=== PATIENT | female | born 1945 | race African-American/Black ===

== ENCOUNTER 2016-04-07 15:38 | Emergency (ER) | payer OTHER ==
[~2016-04-07] VITALS: Ht 154.9 cm; Wt 65.0 kg
[~2016-04-07 15:38] MED LIST: AMLO5TAB22 PO; BUME1TAB PO; ENAL20TA PO; FERR324T4 PO; ISOS30TA3 PO; K-TA10TA5 PO; METO50CR PO; PACE200T4 PO
[2016-04-07 15:43] VITALS: BP 178/89; PULSE 92; RESP 18; TEMP 98.2; O2SAT 85
[2016-04-07 16:33] LABS: BACTERIA, URINE RARE /hpf; BLOOD, URINE TRACE (NEG); COMMENT (UR) CULTURE INDICATED; CULTURE IF INDICATED CULTURE INDICATED; GLUCOSE,URINE NEG (NEG); KETONE, URINE NEG (NEG); MUCUS URINE FEW /lpf (OCC); NITRITE,URINE NEG (NEG); PH, URINE 6.5 (5.0-8.5); SQUAMOUS EPITHELIAL CELL URINE 2 /hpf (0-5); URINE COLOR YELLOW (YELLW/STRAW)
[2016-04-07 16:34] LABS: AUTOMATED NEUTROPHIL # 3.9 TH/MM3 (1.8-7.7); BASOPHIL # 0.1 TH/MM3 (0-0.2); BASOPHIL % 1.1 % (0.0-2.0); EOSINOPHIL # 0.1 TH/MM3 (0-0.4); HEMATOCRIT 31.8 % (35.0-46.0); LYMPH % 12.4 % (9.0-44.0); LYMPHOCYTE # 0.7 TH/MM3 (1.0-4.8); MEAN CELL VOLUME 73.3 FL (80.0-100.0); MEAN CORPUSCULAR HEMOGLOBIN 23.2 PG (27.0-34.0); MEAN CORPUSCULAR HGB CONC 31.6 % (32.0-36.0); MONO % 11.9 % (0.0-8.0); NEUT % 73.6 % (16.0-70.0); PLATELET COUNT 292 TH/MM3 (150-450); RED BLOOD COUNT 4.35 MIL/MM3 (4.00-5.30); RED CELL DISTRIBUTION WIDTH 22.1 % (11.6-17.2); WHITE BLOOD COUNT 5.4 TH/MM3 (4.0-11.0)
[2016-04-07 16:35] LABS: HEMO FLAGS AUTO DIFF
[2016-04-07 16:43] LABS: OVALOCYTES 1+ (NORMAL); PLATELET ESTIMATE SMEAR NORMAL (NORMAL); TEARDROP RBCS 1+ (NORMAL)
[2016-04-07 16:44] LABS: PLATELET MORPHOLOGY NORMAL (NORMAL); SCAN/DIFF AUTO DIFF CONFIRMED
[2016-04-07 16:53] LABS: ANION GAP 7 MEQ/L (5-15)
[2016-04-07 16:58] LABS: ALKALINE PHOSPHATASE 121 U/L (45-117); ALT (GPT) 16 U/L (10-53); AST (GOT) 29 U/L (15-37); BICARBONATE 34.8 MEQ/L (21.0-32.0); BLOOD UREA NITROGEN 16 MG/DL (7-18); CHLORIDE 98 MEQ/L (98-107); GLOMERULAR FILTRATION RATE 64 ML/MIN (>89); SODIUM (NA) 140 MEQ/L (136-145); TOTAL BILIRUBIN ADULT 2.2 MG/DL (0.2-1.0)
[2016-04-07 16:59] LABS: POTASSIUM 2.4 MEQ/L (3.5-5.1)
--- NOTE | 2016-04-07 16:59 | PD ---
HPI Chief Complaint: Abdominal Pain Time Seen by Provider: 16:47 Travel History International Travel<30 days: No Contact w/Intl Traveler<30days: No Traveled to known affect area: No History of Present Illness HPI 70-year-old female with previous hysterectomy, appendectomy here with complaint of abdominal pain. Patient states that she has been constipated for the last several days, still passing flatus. Because of the cold weather she went and ate some chili, after which she developed periumbilical and lower abdominal discomfort. Some nausea, but no vomiting. Pain is mild to moderate, crampy in nature. Symptoms have improved since this morning with pain, constipation for the last several days. She denies any known history of bowel obstructions. No diarrhea. No hematemesis or hematochezia. No fevers or chills. PFSH Past Medical History Hx Anticoagulant Therapy: Yes Arthritis: No Asthma: Yes Autoimmune Disease: No Blood Disorders: No Anxiety: No Depression: No Heart Rhythm Problems: No Cancer: No Cardiovascular Problems: Yes High Cholesterol: No Chemotherapy: No Chest Pain: No Congestive Heart Failure: Yes COPD: Yes Cerebrovascular Accident: No Diabetes: Yes Diminished Hearing: No Endocrine: Yes Gastrointestinal Disorders: No GERD: No Glaucoma: No Genitourinary: No Headaches: No Hepatitis: No Hiatal Hernia: No Hypertension: Yes Immune Disorder: No Kidney Stones: No Musculoskeletal: No Neurologic: No Psychiatric: No Reproductive: Yes (HX HYSTERECTOMY) Respiratory: Yes Integumentary: Yes (RIGHT BREAST LUMPECTOMY) Immunizations Current: Yes Migraines: No Myocardial Infarction: No Radiation Therapy: No Renal Failure: No Seizures: No Sickle Cell Disease: No Sleep Apnea: No Thyroid Disease: No Ulcer: No Menopausal: Yes Past Surgical History Abdominal Surgery: Yes (APPENDECTOMY) AICD: No Appendectomy: Yes Arteriovenous Shunt: No Cardiac Surgery: Yes (3 CARDIAC STENTS) Cholecystectomy: No Ear Surgery: No Endocrine Surgery: No Eye Surgery: No Genitourinary Surgery: No Gynecologic Surgery: Yes (HYSTERECTOMY) Hysterectomy: Yes Insulin Pump: No Joint Replacement: No Oral Surgery: No Pacemaker: Yes (MEDTRONIC 2013 MODEL #[id number]) Thoracic Surgery: No Other Surgery: Yes (hysterectomy,defribillator, stents,lumpectomny) Social History Alcohol Use: Yes (OCCASIONALLY) Tobacco Use: Yes (1/2 PPD) Substance Use: No Allergies-Medications (Allergen,Severity, Reaction): Coded Allergies: Penicillin (Verified Allergy, Severe, 04/07/16) Uncoded Allergies: NON COMPATIBLE PACEMAKER (Adverse Reaction, Severe, MRI PRECAUTION / PACEMAKER, 11/03/14) MRI PRECAUTION. PACEMAKER Reported Meds & Prescriptions Reported Meds & Active Scripts Active Reported Coumadin (Warfarin) 5 Mg Tab Unknown Dose PO DAILY Metoprolol Succinate ER 24 HR (Metoprolol Succinate) 50 Mg Tab 50 Mg PO DAILY Isosorbide Mononitrate 20 Mg Tab 30 Mg PO DAILY Take 2 doses 7 hours apart. K-Tab (Potassium Chloride) 10 Meq Tab 10 Meq PO BID Enalapril (Enalapril Maleate) 20 Mg Tab 20 Mg PO BID Bumetanide 2 Mg Tab 2 Mg PO HS Amlodipine (Amlodipine Besylate) 5 Mg Tab 5 Mg PO DAILY Amiodarone (Amiodarone HCl) 200 Mg Tab 200 Mg PO DAILY Review of Systems Except as stated in HPI: all other systems reviewed are Neg Physical Exam Narrative GENERAL: Elderly female in no acute distress SKIN: Warm and dry. HEAD: Normocephalic. EYES: No scleral icterus. No injection or drainage. ENT: Mucous membranes pink and moist. NECK: Supple CARDIOVASCULAR: Regular rate and rhythm. No murmur appreciated. RESPIRATORY: No accessory muscle use. Clear to auscultation. Breath sounds equal bilaterally. GASTROINTESTINAL: Abdomen soft, periumbilical and suprapubic tenderness to palpation without rebound or guarding, nondistended. Well-healed old surgical scars MUSCULOSKELETAL: Normal gait NEUROLOGICAL: Awake and alert. Normal speech. PSYCHIATRIC: Appropriate mood and affect; insight and judgment normal. Data Data Last Documented VS Vital Signs Date Time Temp Pulse Resp B/P Pulse Ox O2 Delivery O2 Flow Rate FiO2 04/07/16 18:19 98 18 140/98 95 Room Air 04/07/16 15:43 98.2 Orders Complete Blood Count With Diff (04/07/16 15:58) Comprehensive Metabolic Panel (04/07/16 15:58) Urinalysis - C+S If Indicated (04/07/16 15:58) Lipase (04/07/16 15:58) Urine Culture (04/07/16 16:10) Ct Abd/Pel W/O Iv Contrast (04/07/16 16:55) Morphine Inj (Morphine Inj) (04/07/16 17:00) Ondansetron Inj (Zofran Inj) (04/07/16 17:00) Potassium Chloride (Kcl) (04/07/16 17:15) Ondansetron Inj (Zofran Inj) (04/07/16 18:30) Labs Laboratory Tests Test 04/07/16 16:10 White Blood Count 5.4 TH/MM3 Red Blood Count 4.35 MIL/MM3 Hemoglobin 10.1 GM/DL Hematocrit 31.8 % Mean Corpuscular Volume 73.3 FL Mean Corpuscular Hemoglobin 23.2 PG Mean Corpuscular Hemoglobin 31.6 % Concent Red Cell Distribution Width 22.1 % Platelet Count 292 TH/MM3 Mean Platelet Volume 7.7 FL Neutrophils (%) (Auto) 73.6 % Lymphocytes (%) (Auto) 12.4 % Monocytes (%) (Auto) 11.9 % Eosinophils (%) (Auto) 1.0 % Basophils (%) (Auto) 1.1 % Neutrophils # (Auto) 3.9 TH/MM3 Lymphocytes # (Auto) 0.7 TH/MM3 Monocytes # (Auto) 0.6 TH/MM3 Eosinophils # (Auto) 0.1 TH/MM3 Basophils # (Auto) 0.1 TH/MM3 CBC Comment AUTO DIFF Differential Comment AUTO DIFF CONFIRMED Platelet Estimate NORMAL Platelet Morphology Comment NORMAL Tear Drop Cells 1+ Ovalocytes 1+ Urine Color YELLOW Urine Turbidity CLEAR Urine pH 6.5 Urine Specific [place] 1.011 Urine Protein 30 mg/dL Urine Glucose (UA) NEG mg/dL Urine Ketones NEG mg/dL Urine Occult Blood TRACE Urine Nitrite NEG Urine Bilirubin NEG Urine Urobilinogen 4.0 MG/DL Urine Leukocyte Esterase LARGE Urine RBC 4 /hpf Urine WBC 18 /hpf Urine Squamous Epithelial 2 /hpf Cells Urine Bacteria RARE /hpf Urine Mucus FEW /lpf Microscopic Urinalysis Comment CULTURE INDICATED Sodium Level 140 MEQ/L Potassium Level 2.4 MEQ/L Chloride Level 98 MEQ/L Carbon Dioxide Level 34.8 MEQ/L Anion Gap 7 MEQ/L Blood Urea Nitrogen 16 MG/DL Creatinine 1.04 MG/DL Estimat Glomerular Filtration 64 ML/MIN Rate Random Glucose 98 MG/DL Calcium Level 8.6 MG/DL Total Bilirubin 2.2 MG/DL Aspartate Amino Transf 29 U/L (AST/SGOT) Alanine Aminotransferase 16 U/L (ALT/SGPT) Alkaline Phosphatase 121 U/L Total Protein 9.1 GM/DL Albumin 3.4 GM/DL Lipase 93 U/L [facility] Medical Decision Making Medical Screen Exam Complete: Yes Emergency Medical Condition: Yes Medical Record Reviewed: Yes Differential Diagnosis 70-year-old female here with periumbilical and suprapubic abdominal pain after eating chili this morning. Differential includes gastritis, pancreatitis, hepatobiliary pathology, bowel obstruction, gastroenteritis, food poisoning, UTI. Previous appendectomy. Narrative Course Patient placed on monitor, IV established and blood obtained. Given 4 mg morphine, 8 mg Zofran. CBC, CMP, lipase, urinalysis obtained and notable for large leukocyte esterase, 18 white cells with rare bacteria. K 2.4. Patient replaced with 80 mEq orally. Bicarbonate slightly elevated at 34.8, baseline per patient's previous lab values. CT abdomen and pelvis showed anasarca. Cardiomegaly. Minimal ascites, hepatomegaly. Mild diffuse urinary bladder wall thickening and degenerative changes of the spine. Patient will be treated with antibiotics for UTI and discharged home. Diagnosis Primary Impression: Urinary tract infection Qualified Code: N30.00 - Acute cystitis without hematuria Additional Impressions: Abdominal pain Qualified Code: R10.30 - Lower abdominal pain Nausea and vomiting Qualified Code: R11.2 - Non-intractable vomiting with nausea, unspecified vomiting type Anasarca Ascites Qualified Code: R18.8 - Other ascites Hypokalemia Referrals: Primary Care Physician as needed Additional Instructions: Nausea medications as prescribed. Finish antibiotics as prescribed. Follow-up with primary care provider symptoms persist and return to the ER for the warning signs discussed. Med/Other Pt SpecificInfo: Prescription(s) given Scripts Nitrofurantoin Monohydrate Macrocrystals (Macrobid)100 Mg [id number] Mg PO BID 7 Days Ref 0 Prov:Tori Hadley MD 04/07/16 Ondansetron Odt (Zofran Odt)8 Mg Tab8 Mg SL Q8H PRN (NAUSEA OR VOMITING) #6 TAB Ref 0 Prov:Tori Hadley MD 04/07/16 Disposition: 01 DISCHARGE HOME Condition: Stable Tori Hadley MD Apr 07, 2016 16:59
[2016-04-07] MEDS ORDERED: ONDANSETRON HCL 4 MG/2 ML VIAL IVP ONE (17:00)
[2016-04-07] MEDS ORDERED: MORPHINE SULFATE 4 MG/ML INJ IV PUSH ONE (17:00)
[2016-04-07] MEDS ORDERED: POTASSIUM CHLORIDE 20 MEQ CONTROLLED RELEASE TAB PO ONE (17:15)
[2016-04-07] MEDS ORDERED: BUME2TAB PO (17:39)
[2016-04-07] MEDS ORDERED: NOVOLOGSS (17:39)
[2016-04-07] MEDS ORDERED: METO50TA11 PO (17:39)
[2016-04-07] MEDS ORDERED: COUM5TAB PO (17:39)
[2016-04-07] MEDS ORDERED: AMLO5TAB2 PO (17:39)
[2016-04-07] MEDS ORDERED: AMIO200T PO (17:39)
[2016-04-07] MEDS ORDERED: ENAL20TA PO (17:39)
[2016-04-07] MEDS ORDERED: ISOS20TA PO (17:39)
[2016-04-07] MEDS ORDERED: K-TA10TA PO (17:39)
[2016-04-07 18:19] VITALS: BP 140/98; PULSE 98; RESP 18; O2SAT 95
--- NOTE | 2016-04-07 18:29 | RADRPT ---
EXAM DATE/TIME: 04/07/2016 18:06 [facility] COMPARISON: No previous studies available for comparison. INDICATIONS : Abdominal pain, nausea, and constipation. ORAL CONTRAST: No oral contrast ingested. RADIATION DOSE: 8.49 CTDIvol (mGy) MEDICAL HISTORY : Hypertension. Cardiovascular disease Diabetes mellitus type 2. SURGICAL HISTORY : Appendectomy. ENCOUNTER: Initial ACUITY: 1 day PAIN SCALE: 7/10 LOCATION: Abdomen TECHNIQUE: Volumetric scanning of the abdomen and pelvis was performed. Using automated exposure control and ad justment of the mA and/or kV according to patient size, radiation dose was kept as low as reasonably achievable to obtain optimal diagnostic quality images. FINDINGS: Extensive anasarca is noted. Some ascites is noted within the abdomen. The liver is enlarged. Eval uation of the solid organs of the abdomen is limited by the lack of intravenous contrast. The heart is markedly enlarged. Extensive vascular calcifications are noted. Fibrotic scarring is noted withi n the visualized lung bases. No acute obstructive uropathy is noted. The wall of the urinary bladde r is diffusely thickened. Degenerative changes and scoliosis of the thoracolumbar spine are noted. CONCLUSION: 1. Extensive anasarca. 2. Marked cardiomegaly. 3. Minimal ascites within the abdomen. 4. Hepatomegaly. 5. No acute obstructive uropathy. 6. Mild diffuse urinary bladder wall thickening. 7. Degenerative changes and scoliosis of the thoracolumbar spine. 8. Fibrotic scarring within the posterior lung bases. Lazaro Abebe MD on April 07, 2016 at 18:20 Board Certified Radiologist. This report was verified electronically.
[2016-04-07] MEDS ORDERED: ONDANSETRON HCL 4 MG/2 ML VIAL IV PUSH ONE (18:30)
[2016-04-07] MEDS ORDERED: ZOFR8TAB4 SL (18:35)
[2016-04-07] MEDS ORDERED: MACR100C2 PO (18:35)
[2016-04-07 19:18] VITALS: BP 135/80
== END 2016-04-07 19:46 | disposition home or self-care (01) ==
LOC: NEPC 15:38
DX: N30.00 Acute cystitis without hematuria (principal); R10.30 Lower abdominal pain, unspecified; R11.2 Nausea with vomiting, unspecified; R60.1 Generalized edema; R18.8 Other ascites; E87.6 Hypokalemia; K59.00 Constipation, unspecified; E11.9 Type 2 diabetes mellitus without complications; Z79.01 Long term (current) use of anticoagulants; I10 Essential (primary) hypertension; F17.200 Nicotine dependence, unspecified, uncomplicated; Z86.79 Personal history of other diseases of the circulatory system; Z87.09 Personal history of other diseases of the respiratory system; Z95.0 Presence of cardiac pacemaker
CPT/HCPCS: 74176; 80053; 81001; 83690; 85025; 87086; 96374; 96375; 96376; 99284; J2270; J2405

== ENCOUNTER 2016-05-13 11:08 | Emergency (ER) | payer OTHER ==
[~2016-05-13] VITALS: Ht 157.5 cm; Wt 70.0 kg
[~2016-05-13 11:08] MED LIST changes: +AMIO200T PO; +AMLO5TAB2 PO; -AMLO5TAB22 PO; -BUME1TAB PO; +BUME2TAB PO; +COUM5TAB PO; -FERR324T4 PO; +ISOS20TA PO; -ISOS30TA3 PO; +K-TA10TA PO; -K-TA10TA5 PO; +MACR100C2 PO; -METO50CR PO; +METO50TA11 PO; -PACE200T4 PO; +ZOFR8TAB4 SL
[2016-05-13 11:10] VITALS: BP 163/87; PULSE 102; RESP 14; TEMP 98.4; O2SAT 88
--- NOTE | 2016-05-13 11:27 | PD ---
HPI . facial swelling x 1 day Chief Complaint: Allergic/Adverse Reaction Time Seen by Provider: 11:26 Travel History International Travel<30 days: No Contact w/Intl Traveler<30days: No Traveled to known affect area: No History of Present Illness HPI 70-year-old with past medical history of hypertension, diabetes, hyperlipidemia , tobaccoism for over 50 years here with complaints of facial swelling for 1 day. Patient says she woke up this morning and noticed that her face ( bilateral eyes and lips and tongue) was swollen. She denies eating any new foods. She denies starting any new medications. She last saw her primary care provider Dr. De La Cruz 2-3 weeks ago and states everything was going well. She has been on enalapril 2-3 years. The patient woke up this morning at 7am with facial swelling and has noted that it is already improving. She denies any shortness of breath, difficulty swallowing or eating or trouble breathing. She is accompanied by her granddaughter. PFSH Past Medical History Hx Anticoagulant Therapy: Yes Arthritis: No Asthma: Yes Autoimmune Disease: No Blood Disorders: No Anxiety: No Depression: No Heart Rhythm Problems: No Cancer: No Cardiac Catheterization: Yes Cardiovascular Problems: Yes High Cholesterol: No Chemotherapy: No Chest Pain: No Congestive Heart Failure: Yes COPD: Yes Cerebrovascular Accident: No Diabetes: Yes Diminished Hearing: No Endocrine: Yes Gastrointestinal Disorders: No GERD: No Glaucoma: No Genitourinary: No Headaches: No Hepatitis: No Hiatal Hernia: No Hypertension: Yes Immune Disorder: No Kidney Stones: No Musculoskeletal: No Neurologic: No Psychiatric: No Reproductive: Yes (HX HYSTERECTOMY) Respiratory: Yes Integumentary: Yes (RIGHT BREAST LUMPECTOMY) Immunizations Current: Yes Migraines: No Myocardial Infarction: No Radiation Therapy: No Renal Failure: No Seizures: No Sickle Cell Disease: No Sleep Apnea: No Thyroid Disease: No Ulcer: No ?: Not Menopausal: Yes Past Surgical History Abdominal Surgery: Yes (APPENDECTOMY) AICD: Yes Appendectomy: Yes Arteriovenous Shunt: No Cardiac Surgery: Yes (3 CARDIAC STENTS) Cholecystectomy: No Coronary Stent: Yes (x3) Ear Surgery: No Endocrine Surgery: No Eye Surgery: No Genitourinary Surgery: No Gynecologic Surgery: Yes (HYSTERECTOMY) Hysterectomy: Yes Insulin Pump: No Joint Replacement: No Oral Surgery: No Pacemaker: Yes (EdfolioTRONIC 2013 MODEL #[id number]) Thoracic Surgery: No Other Surgery: Yes (defribillator,lumpectomny r breast) Social History Alcohol Use: No Tobacco Use: Yes (1/2 PPD) Substance Use: No Allergies-Medications (Allergen,Severity, Reaction): Coded Allergies: Penicillin (Verified Allergy, Severe, rash, 05/13/16) HUMBLE Inhibitors (Verified Allergy, Mild, 05/13/16) HUMBLE inhibitor angioedema, swelling of the face lips and anterior tongue Uncoded Allergies: NON COMPATIBLE PACEMAKER (Adverse Reaction, Severe, MRI PRECAUTION / PACEMAKER, 11/03/14) MRI PRECAUTION. PACEMAKER Reported Meds & Prescriptions Reported Meds & Active Scripts Active Medrol Dosepak (Methylprednisolone) 4 Mg Dspk 4 Mg PO DIRECTED Per Pharmacist direction Zofran Odt (Ondansetron Odt) 8 Mg Tab 8 Mg SL Q8H PRN Reported Coumadin (Warfarin) 5 Mg Tab 5 PO DAILY Metoprolol Succinate ER 24 HR (Metoprolol Succinate) 50 Mg Tab 50 Mg PO DAILY Isosorbide Mononitrate 20 Mg Tab 30 Mg PO DAILY Take 2 doses 7 hours apart. K-Tab (Potassium Chloride) 10 Meq Tab 10 Meq PO BID Enalapril (Enalapril Maleate) 20 Mg Tab 20 Mg PO BID Bumetanide 2 Mg Tab 2 Mg PO HS Amlodipine (Amlodipine Besylate) 5 Mg Tab 5 Mg PO DAILY Amiodarone (Amiodarone HCl) 200 Mg Tab 200 Mg PO DAILY Review of Systems General / Constitutional: No: Fever Eyes: No: Visual changes HENT: No: Headaches Cardiovascular: No: Chest Pain or Discomfort Respiratory: No: Shortness of Breath Gastrointestinal: No: Abdominal Pain Genitourinary: No: Dysuria Musculoskeletal: No: Pain Skin: Positive Other (facial edema), No Rash Neurologic: No: Weakness Psychiatric: No: Depression Endocrine: No: Polydipsia Hematologic/Lymphatic: No: Easy Bruising Physical Exam Narrative GENERAL: AAO x 3, no acute distress, Well-nourished, well-developed patient. SKIN: Warm and dry. No visible rashes or bruising. + facial edema ( luis alberto orbital , angioedema) HEAD: Normocephalic and atraumatic. EYES: No scleral icterus. No injection or drainage. EOM intact, PERRLA ENT: No nasal drainage noted. Mucous membranes pink. Airway patent. tongue slightly swollen. No posterior pharyngeal edema. NECK: Supple, trachea midline. No JVD. No adeonpathy. CARDIOVASCULAR: Regular rate and rhythm without murmurs, gallops, or rubs. RESPIRATORY: Breath sounds equally diminished bilaterally. No accessory muscle use. No rhonchi or rales. GASTROINTESTINAL: Abdomen soft, non-tender, nondistended. EXTREMITIES: No cyanosis or edema. BACK: Nontender without obvious deformity. No CVA tenderness. PSYCH: AAO x 3, normal affect. Data Data Last Documented VS Vital Signs Date Time Temp Pulse Resp B/P Pulse Ox O2 Delivery O2 Flow Rate FiO2 05/13/16 12:10 98.0 87 17 150/67 98 05/13/16 11:46 Room Air Orders Methylprednisolone So Succ Inj (Solumedr (05/13/16 11:30) Diphenhydramine Inj (Benadryl Inj) (05/13/16 11:30) MDM Medical Decision Making Medical Screen Exam Complete: Yes Emergency Medical Condition: Yes Medical Record Reviewed: Yes Differential Diagnosis HUMBLE inhibitor angioedema, allergic reaction to food or hygiene product, less likely facial cellulitis Narrative Course 70-year-old with past medical history of hypertension, diabetes, hyperlipidemia , tobaccoism for over 50 years here with complaints of facial swelling for 1 day. Patient says she woke up this morning and noticed that her face ( bilateral eyes and lips and tongue) was swollen. She denies eating any new foods. She denies starting any new medications. She last saw her primary care provider Dr. De La Cruz 2-3 weeks ago and states everything was going well. She has been on enalapril 2-3 years. The patient woke up this morning with facial swelling and has noted that it is already improving. She denies any shortness of breath, difficulty swallowing or eating or trouble breathing. She is accompanied by her granddaughter. Patient seen and examined. Case discussed with Dr. Joe. Recommend Solu-Medrol and Benadryl IM. Patient o2 sat on room air 98. She is comfortable without any distress. Advise stopping HUMBLE inhibitor and following up with primary care provider for adjustment of medications as soon as possible. Discussed treatment plan with patient and her granddaughter. Patient verbalized understanding of instructions, questions were answered, and thanked me for their care. I advised them if their condition worsens, please return to the nearest emergency room for further care. Diagnosis Primary Impression: HUMBLE inhibitor-aggravated angioedema Additional Impression: Allergy to HUMBLE inhibitors Patient Instructions: Angioedema (ED), General Instructions Additional Instructions: Your enalapril likely caused your face to swell. We are discontinuing your medication. You need to stop taking it immediately. DO NOT TAKE ANYMORE ENALAPRIL. Please see Dr. De La Cruz as soon as possible to get your medicine changed. You will need to follow up with your primary care provider to get your INR checked again. Take medications as prescribed. Return to ED if your symptoms return or worsen. Med/Other Pt SpecificInfo: Prescription(s) given, Med Stopped Scripts Methylprednisolone Dosepak (Medrol Dosepak)4 Mg Dspk4 Mg PO DIRECTED #1 DSPK Ref 0 Per Pharmacist direction Prov:Jaz Gaming 05/13/16 Disposition: 01 DISCHARGE HOME Condition: Stable Jaz Gaming May 13, 2016 11:27
[2016-05-13] MEDS ORDERED: methylPREDNISolone SOD SUCC 40 MG/1 ML VIAL IM SCH (11:30)
[2016-05-13] MEDS ORDERED: diphenhydrAMINE HCL 50 MG/ML VIAL IM ONE (11:30)
[2016-05-13 11:46] VITALS: BP 154/67; PULSE 96; RESP 18; O2SAT 98
[2016-05-13] MEDS ORDERED: MEDR4PAK PO (11:48)
--- NOTE | 2016-05-13 11:59 | PD ---
Data Data Last Documented VS Vital Signs Date Time Temp Pulse Resp B/P Pulse Ox O2 Delivery O2 Flow Rate FiO2 05/13/16 11:46 96 18 154/67 98 Room Air 05/13/16 11:10 98.4 Orders Methylprednisolone So Succ Inj (Solumedr (05/13/16 11:30) Diphenhydramine Inj (Benadryl Inj) (05/13/16 11:30) MDM Supervised Visit with KAVITA: Yes Narrative Course I, Dr. Hadley, have reviewed the advance practice practioner's documentation and am in agreement, met with the patient face to face, made the diagnosis, and the medical decision making was done by me. *My assessment and Findings: 70-year-old female here with complaint of facial swelling. She woke up with this. Approximate 7 AM, symptoms have gradually improved. No shortness of breath, difficulty swallowing , significant posterior pharyngeal swelling. She states that her face, lips and the anterior part of her tongue feels swollen. She is on an HUMBLE inhibitor. Denies any new lotions, soaps, detergents, medications, etc. Differential includes HUMBLE inhibitor angioedema, allergy, anaphylaxis. Given the duration of her symptoms in fact that they have arty been improving patient was given steroids, Benadryl and will be discharged home with same. Discontinuation of her HUMBLE inhibitor. Diagnosis Primary Impression: HUMBLE inhibitor-aggravated angioedema Qualified Code: T46.4X1A - HUMBLE inhibitor-aggravated angioedema, accidental or unintentional, initial encounter Additional Impression: Allergy to HUMBLE inhibitors Patient Instructions: General Instructions, Angioedema (ED) Additional Instruction: Your enalapril likely caused your face to swell. We are discontinuing your medication. You need to stop taking it immediately. DO NOT TAKE ANYMORE ENALAPRIL. Please see Dr. De La Cruz as soon as possible to get your medicine changed. You will need to follow up with your primary care provider to get your INR checked again. Take medications as prescribed. Med/Other Pt SpecificInfo: Med Stopped Scripts Methylprednisolone Dosepak (Medrol Dosepak)4 Mg Dspk4 Mg PO DIRECTED #1 DSPK Ref 0 Per Pharmacist direction Prov:Jaz Gaming 05/13/16 Disposition: 01 DISCHARGE HOME Condition: Stable Tori Hadley MD May 13, 2016 11:58
[2016-05-13 12:10] VITALS: BP 150/67; TEMP 98
== END 2016-05-13 12:10 | disposition home or self-care (01) ==
LOC: NEPE 11:08
DX: T78.3XXA Angioneurotic edema, initial encounter (principal); T46.4X5A Adverse effect of angiotensin-converting-enzyme inhibitors, initial encounter; E78.5 Hyperlipidemia, unspecified; I10 Essential (primary) hypertension; E11.9 Type 2 diabetes mellitus without complications; F17.210 Nicotine dependence, cigarettes, uncomplicated; J45.909 Unspecified asthma, uncomplicated; I50.9 Heart failure, unspecified; J44.9 Chronic obstructive pulmonary disease, unspecified; Z79.01 Long term (current) use of anticoagulants; Y92.009 Unspecified place in unspecified non-institutional (private) residence as the place of occurrence of the external cause
CPT/HCPCS: 96372; 99283; J1200; J2920

== ENCOUNTER 2016-11-28 09:39 | Emergency (ER) | payer OTHER ==
[~2016-11-28 09:39] MED LIST changes: -MACR100C2 PO; +MEDR4PAK PO
[2016-11-28] MEDS ORDERED: IOHEXOL 350 MG/ML 10 ML VIAL (for RAD DIAG) IVCONTRAST ONE (09:40)
[2016-11-28 09:41] VITALS: BP 138/87; PULSE 112; RESP 24; TEMP 98.3; O2SAT 92
[2016-11-28 10:10] VITALS: BP 135/61; PULSE 98; RESP 16; TEMP 98.5; O2SAT 91
[2016-11-28] MEDS ORDERED: SODIUM CHLORID 0.9% 500 ML INJ 500 ML IV ONE (10:15)
[2016-11-28 10:30] LABS: AUTOMATED NEUTROPHIL # 8.2 TH/MM3 (1.8-7.7); BASOPHIL # 0.1 TH/MM3 (0-0.2); BASOPHIL % 0.7 % (0.0-2.0); EOSINOPHIL # 0.1 TH/MM3 (0-0.4); EOSINOPHIL % 0.8 % (0.0-4.0); HEMATOCRIT 31.9 % (35.0-46.0); HEMO FLAGS DIFF FINAL; LYMPH % 6.4 % (9.0-44.0); LYMPHOCYTE # 0.7 TH/MM3 (1.0-4.8); MEAN CELL VOLUME 71.2 FL (80.0-100.0); MEAN CORPUSCULAR HEMOGLOBIN 21.7 PG (27.0-34.0); MEAN CORPUSCULAR HGB CONC 30.5 % (32.0-36.0); MONO % 15.2 % (0.0-8.0); NEUT % 76.9 % (16.0-70.0); PLATELET COUNT 351 TH/MM3 (150-450); RED BLOOD COUNT 4.49 MIL/MM3 (4.00-5.30); RED CELL DISTRIBUTION WIDTH 20.6 % (11.6-17.2); WHITE BLOOD COUNT 10.6 TH/MM3 (4.0-11.0)
[2016-11-28 10:34] LABS: APTT (PATIENT) 29.7 SEC (24.3-30.1); INTERNATIONAL NORMALIZED RATIO 1.3 RATIO
[2016-11-28 10:46] LABS: ALT (GPT) 13 U/L (10-53); ANION GAP 8 MEQ/L (5-15); AST (GOT) 20 U/L (15-37); BICARBONATE 26.8 MEQ/L (21.0-32.0); BLOOD UREA NITROGEN 15 MG/DL (7-18); CHLORIDE 101 MEQ/L (98-107); GLOMERULAR FILTRATION RATE 67 ML/MIN (>89); MAGNESIUM 1.8 MG/DL (1.5-2.5); POTASSIUM 3.2 MEQ/L (3.5-5.1); SODIUM (NA) 136 MEQ/L (136-145)
[2016-11-28 10:50] LABS: ALKALINE PHOSPHATASE 122 U/L (45-117); TOTAL BILIRUBIN ADULT 2.2 MG/DL (0.2-1.0)
--- NOTE | 2016-11-28 10:54 | RADRPT ---
EXAM DATE/TIME: 11/28/2016 10:10 [facility] COMPARISON: CHEST SINGLE AP, October 11, 2015, 18:00. INDICATIONS : Left chest pain. MEDICAL HISTORY : Congestive heart failure. Chronic obstructive pulmonary disease. Asthma SURGICAL HISTORY : Coronary artery stent. Pacemaker. ENCOUNTER: Initial ACUITY: 4 - 6 days PAIN SCORE: 8/10 LOCATION: Left upper chest FINDINGS: A single AP portable erect view of the chest was obtained. The study is more Midinspiratory. The hear t size remains enlarged with globular heart configuration. There are no definite new confluent infilt rates or effusions. Streaky opacity remains in the left perihilar region. There are atherosclerotic c hanges in aorta. A left subclavian transvenous pacer remains in place. CONCLUSION: Moderate cardiomegaly again noted with no definite new pulmonary edema or infiltrate. Sergio Haro MD on November 28, 2016 at 10:51 Board Certified Radiologist. This report was verified electronically.
[2016-11-28 10:55] LABS: CREATINE KINASE 99 U/L (26-192)
--- NOTE | 2016-11-28 10:56 | PD ---
HPI Chief Complaint: Chest Pain Time Seen by Provider: 10:11 Travel History International Travel<30 days: No Contact w/Intl Traveler<30days: No Traveled to known affect area: No History of Present Illness HPI Patient is a 71-year-old female with history of hypertension, coronary artery disease, presents to the ER with complaints of left-sided breast pain and swelling. Patient reports that on Friday, she was at [employer] and as they were singing, someone accidently bumped her head into her left breast. Patient reports that she has been having increased pain and swelling to her left breast since Friday. She did follow up with her primary care doctor, Dr. De La Cruz who ordered a CT study of her chest as outpatient. Reports that pain is so severe today, she couldn't tolerate the pain so she came to the ER and did not have her outpatient studies. Patient with no fever/chills. No other complaints. PFSH Past Medical History Hx Anticoagulant Therapy: Yes Arthritis: No Asthma: Yes Autoimmune Disease: No Blood Disorders: No Anxiety: No Depression: No Heart Rhythm Problems: No Cancer: No Cardiac Catheterization: Yes Cardiovascular Problems: Yes High Cholesterol: No Chemotherapy: No Chest Pain: No Congestive Heart Failure: Yes COPD: Yes Cerebrovascular Accident: No Diabetes: Yes Patient Takes Glucophage: No Diminished Hearing: No Endocrine: Yes Gastrointestinal Disorders: No GERD: No Glaucoma: No Genitourinary: No Headaches: No Hepatitis: No Hiatal Hernia: No Hypertension: Yes Immune Disorder: No Kidney Stones: No Musculoskeletal: No Neurologic: No Psychiatric: No Reproductive: Yes (HX HYSTERECTOMY) Respiratory: Yes Integumentary: Yes (RIGHT BREAST LUMPECTOMY) Immunizations Current: Yes Migraines: No Myocardial Infarction: No Radiation Therapy: No Renal Failure: No Seizures: No Sickle Cell Disease: No Sleep Apnea: No Thyroid Disease: No Ulcer: No Tetanus Vaccination: < 5 Years Influenza Vaccination: Yes Menopausal: Yes Past Surgical History Abdominal Surgery: Yes (APPENDECTOMY) AICD: Yes Appendectomy: Yes Arteriovenous Shunt: No Cardiac Surgery: Yes (3 CARDIAC STENTS) Cholecystectomy: No Coronary Stent: Yes (x3) Ear Surgery: No Endocrine Surgery: No Eye Surgery: No Genitourinary Surgery: No Gynecologic Surgery: Yes (HYSTERECTOMY) Hysterectomy: Yes Insulin Pump: No Joint Replacement: No Oral Surgery: No Pacemaker: Yes ([employer] 2013 MODEL #[id number]) Thoracic Surgery: No Other Surgery: Yes (defribillator,lumpectomny r breast) Social History Alcohol Use: No Tobacco Use: Yes (1 PPD) Substance Use: No Allergies-Medications (Allergen,Severity, Reaction): Coded Allergies: penicillin G (Unverified Allergy, Severe, rash, 11/28/16) benazepril (Unverified Allergy, Mild, 11/28/16) HUMBLE inhibitor angioedema, swelling of the face lips and anterior tongue captopril (Unverified Allergy, Mild, 11/28/16) HUMBLE inhibitor angioedema, swelling of the face lips and anterior tongue enalaprilat (Unverified Allergy, Mild, 11/28/16) HUMBLE inhibitor angioedema, swelling of the face lips and anterior tongue fosinopril (Unverified Allergy, Mild, 11/28/16) HUMBLE inhibitor angioedema, swelling of the face lips and anterior tongue lisinopril (Unverified Allergy, Mild, 11/28/16) HUMBLE inhibitor angioedema, swelling of the face lips and anterior tongue quinapril (Unverified Allergy, Mild, 11/28/16) HUMBLE inhibitor angioedema, swelling of the face lips and anterior tongue Uncoded Allergies: NON COMPATIBLE PACEMAKER (Adverse Reaction, Severe, MRI PRECAUTION / PACEMAKER, 11/03/14) MRI PRECAUTION. PACEMAKER Reported Meds & Prescriptions Reported Meds & Active Scripts Active Tylenol-Codeine #3 (Acetaminophen-Codeine) 300-30 mg Tab 1 Tab PO Q4H PRN Clindamycin (Clindamycin HCl) 300 Mg Cap 300 Mg PO Q6H 10 Days Medrol Dosepak (Methylprednisolone) 4 Mg Dspk 4 Mg PO DIRECTED Per Pharmacist direction Zofran Odt (Ondansetron Odt) 8 Mg Tab 8 Mg SL Q8H PRN Reported Coumadin (Warfarin) 5 Mg Tab 5 PO DAILY Metoprolol Succinate ER 24 HR (Metoprolol Succinate) 50 Mg Tab 50 Mg PO DAILY Isosorbide Mononitrate 20 Mg Tab 30 Mg PO DAILY Take 2 doses 7 hours apart. K-Tab (Potassium Chloride) 10 Meq Tab 10 Meq PO BID Enalapril (Enalapril Maleate) 20 Mg Tab 20 Mg PO BID Bumetanide 2 Mg Tab 2 Mg PO HS Amlodipine (Amlodipine Besylate) 5 Mg Tab 5 Mg PO DAILY Amiodarone (Amiodarone HCl) 200 Mg Tab 200 Mg PO DAILY Review of Systems General / Constitutional: No: Fever Eyes: No: Visual changes HENT: No: Headaches Cardiovascular: Positive: Chest Pain or Discomfort, Other (left sided breast tenderness) Respiratory: No: Shortness of Breath Gastrointestinal: No: Abdominal Pain Genitourinary: No: Dysuria Musculoskeletal: No: Pain Skin: No Rash Neurologic: No: Weakness Psychiatric: No: Depression Endocrine: No: Polydipsia Hematologic/Lymphatic: No: Easy Bruising Physical Exam Narrative GENERAL: moderate distress SKIN: Focused skin assessment warm/dry. HEAD: Atraumatic. Normocephalic. EYES: Pupils equal and round. No scleral icterus. No injection or drainage. ENT: No nasal bleeding or discharge. Mucous membranes pink and moist. NECK: Trachea midline. No JVD. CARDIOVASCULAR: Mildly tachycardic. No murmur appreciated. Patient with increased swelling, tenderness and erythema to her left breast RESPIRATORY: No accessory muscle use. Clear to auscultation. Breath sounds equal bilaterally. GASTROINTESTINAL: Abdomen soft, non-tender, nondistended. Hepatic and splenic margins not palpable. MUSCULOSKELETAL: No obvious deformities. No clubbing. No cyanosis. No edema. NEUROLOGICAL: Awake and alert. No obvious cranial nerve deficits. Motor grossly within normal limits. Normal speech. PSYCHIATRIC: Appropriate mood and affect; insight and judgment normal. Data Data Last Documented VS Vital Signs Date Time Temp Pulse Resp B/P (MAP) Pulse Ox O2 Delivery O2 Flow Rate FiO2 11/28/16 10:10 98.5 98 16 135/61 (85) 91 Nasal Cannula 3.00 Orders Orders Electrocardiogram (11/28/16 09:55) B-Type Natriuretic Peptide (11/28/16 09:55) Ckmb (Isoenzyme) Profile (11/28/16 09:55) Complete Blood Count With Diff (11/28/16 09:55) Comprehensive Metabolic Panel (11/28/16 09:55) Magnesium (Mg) (11/28/16 09:55) Prothrombin Time / Inr (Pt) (11/28/16 09:55) Act Partial Throm Time (Ptt) (11/28/16 09:55) Troponin I (11/28/16 09:55) Lipase (11/28/16 09:55) Chest, Single Ap (11/28/16 09:55) Ecg Monitoring (11/28/16 09:55) Iv Access Insert/Monitor (11/28/16 09:55) Oximetry (11/28/16 09:55) Ct Thorax/ Chest W Iv Contrast (11/28/16 ) Sodium Chlorid 0.9% 500 Ml Inj (Ns 500 M (11/28/16 10:15) Lactic Acid Sepsis Protocol (11/28/16 10:43) Blood Culture (11/28/16 10:43) Iohexol 350 Inj (Omnipaque 350 Inj) (11/28/16 09:40) Vancomycin Inj (Vancomycin Inj) (11/28/16 12:30) Furosemide Inj (Lasix Inj) (11/28/16 13:15) Potassium Chloride (Kcl) (11/28/16 13:15) Labs Laboratory Tests Test 11/28/16 10:00 White Blood Count 10.6 TH/MM3 Red Blood Count 4.49 MIL/MM3 Hemoglobin 9.7 GM/DL Hematocrit 31.9 % Mean Corpuscular Volume 71.2 FL Mean Corpuscular Hemoglobin 21.7 PG Mean Corpuscular Hemoglobin Concent 30.5 % Red Cell Distribution Width 20.6 % Platelet Count 351 TH/MM3 Mean Platelet Volume 7.6 FL Neutrophils (%) (Auto) 76.9 % Lymphocytes (%) (Auto) 6.4 % Monocytes (%) (Auto) 15.2 % Eosinophils (%) (Auto) 0.8 % Basophils (%) (Auto) 0.7 % Neutrophils # (Auto) 8.2 TH/MM3 Lymphocytes # (Auto) 0.7 TH/MM3 Monocytes # (Auto) 1.6 TH/MM3 Eosinophils # (Auto) 0.1 TH/MM3 Basophils # (Auto) 0.1 TH/MM3 CBC Comment DIFF FINAL Differential Comment Prothrombin Time 14.0 SEC Prothromb Time International Ratio 1.3 RATIO Activated Partial Thromboplast Time 29.7 SEC Blood Urea Nitrogen 15 MG/DL Creatinine 0.99 MG/DL Random Glucose 99 MG/DL Total Protein 8.5 GM/DL Albumin 2.9 GM/DL Calcium Level 8.6 MG/DL Magnesium Level 1.8 MG/DL Alkaline Phosphatase 122 U/L Aspartate Amino Transf (AST/SGOT) 20 U/L Alanine Aminotransferase (ALT/SGPT) 13 U/L Total Bilirubin 2.2 MG/DL Sodium Level 136 MEQ/L Potassium Level 3.2 MEQ/L Chloride Level 101 MEQ/L Carbon Dioxide Level 26.8 MEQ/L Anion Gap 8 MEQ/L Estimat Glomerular Filtration Rate 67 ML/MIN Lactic Acid Level 1.4 mmol/L Total Creatine Kinase 99 U/L Troponin I 0.02 NG/ML B-Type Natriuretic Peptide 2352 PG/ML Lipase 76 U/L MDM Medical Decision Making Medical Screen Exam Complete: Yes Emergency Medical Condition: Yes Interpretation(s) EKG at 1005: Sinus tachycardia at 104 bpm, QT/QTC 368/428 Vital Signs Date Time Temp Pulse Resp B/P (MAP) Pulse Ox O2 Delivery O2 Flow Rate FiO2 11/28/16 10:10 98.5 98 16 135/61 (85) 91 Nasal Cannula 3.00 11/28/16 10:01 104 11/28/16 09:41 98.3 112 24 138/87 (104) 92 Room Air Differential Diagnosis Differential includes breast abscess, breast cellulitis, ACS, arrhythmia, electrolyte abnormality Narrative Course Patient is a 71-year-old female who presents to emergency room complaints of left-sided breast pain. Patient does have history of CHF, hypertension, diabetes, coronary artery disease, patient with tenderness and swelling and pain to her left breast. Patient was placed on a surveillance system monitor upon arrival to the emergency room. EKG with sinus tachycardia with no acute ST-T wave changes. Patient with most likely left breast abscess versus cellulitis. Blood cultures as well as lactic acid, labwork ordered. Will monitor patient. Dose of IV vancomycin ordered for patient Vital Signs Date Time Temp Pulse Resp B/P (MAP) Pulse Ox O2 Delivery O2 Flow Rate FiO2 11/28/16 10:10 98.5 98 16 135/61 (85) 91 Nasal Cannula 3.00 11/28/16 10:01 104 11/28/16 09:41 98.3 112 24 138/87 (104) 92 Room Air Laboratory Tests Test 11/28/16 10:00 White Blood Count 10.6 TH/MM3 (4.0-11.0) Red Blood Count 4.49 MIL/MM3 (4.00-5.30) Hemoglobin 9.7 GM/DL (11.6-15.3) Hematocrit 31.9 % (35.0-46.0) Mean Corpuscular Volume 71.2 FL (80.0-100.0) Mean Corpuscular Hemoglobin 21.7 PG (27.0-34.0) Mean Corpuscular Hemoglobin Concent 30.5 % (32.0-36.0) Red Cell Distribution Width 20.6 % (11.6-17.2) Platelet Count 351 TH/MM3 (150-450) Mean Platelet Volume 7.6 FL (7.0-11.0) Neutrophils (%) (Auto) 76.9 % (16.0-70.0) Lymphocytes (%) (Auto) 6.4 % (9.0-44.0) Monocytes (%) (Auto) 15.2 % (0.0-8.0) Eosinophils (%) (Auto) 0.8 % (0.0-4.0) Basophils (%) (Auto) 0.7 % (0.0-2.0) Neutrophils # (Auto) 8.2 TH/MM3 (1.8-7.7) Lymphocytes # (Auto) 0.7 TH/MM3 (1.0-4.8) Monocytes # (Auto) 1.6 TH/MM3 (0-0.9) Eosinophils # (Auto) 0.1 TH/MM3 (0-0.4) Basophils # (Auto) 0.1 TH/MM3 (0-0.2) CBC Comment DIFF FINAL Differential Comment Prothrombin Time 14.0 SEC (9.8-11.6) Prothromb Time International Ratio 1.3 RATIO Activated Partial Thromboplast Time 29.7 SEC (24.3-30.1) Blood Urea Nitrogen 15 MG/DL (7-18) Creatinine 0.99 MG/DL (0.50-1.00) Random Glucose 99 MG/DL (74-106) Total Protein 8.5 GM/DL (6.4-8.2) Albumin 2.9 GM/DL (3.4-5.0) Calcium Level 8.6 MG/DL (8.5-10.1) Magnesium Level 1.8 MG/DL (1.5-2.5) Alkaline Phosphatase 122 U/L (45-117) Aspartate Amino Transf (AST/SGOT) 20 U/L (15-37) Alanine Aminotransferase (ALT/SGPT) 13 U/L (10-53) Total Bilirubin 2.2 MG/DL (0.2-1.0) Sodium Level 136 MEQ/L (136-145) Potassium Level 3.2 MEQ/L (3.5-5.1) Chloride Level 101 MEQ/L (98-107) Carbon Dioxide Level 26.8 MEQ/L (21.0-32.0) Anion Gap 8 MEQ/L (5-15) Estimat Glomerular Filtration Rate 67 ML/MIN (>89) Lactic Acid Level 1.4 mmol/L (0.4-2.0) Total Creatine Kinase 99 U/L (26-192) Troponin I 0.02 NG/ML (0.02-0.05) B-Type Natriuretic Peptide 2352 PG/ML (0-100) Lipase 76 U/L (73-393) Last Impressions Chest X-Ray 11/28/16 0955 Signed Impressions: Service Date/Time: , November 28, 2016 10:10 - CONCLUSION: Moderate cardiomegaly again noted with no definite new pulmonary edema or infiltrate. Sergio Haro MD CT of chest wall with diffuse edema throughout the chest and anterior abdominal wall but most pronounced involving the left breast. no abscess observed. Patient with most likely breast cellulitis. Patient has been pancultured and started on clindamycin. Patient's chest pain is located to her left breast which is swollen and erythematous. Patient with most likely left breast abscess. Plan to treat and discharge to home with script for clinda. Patient will follow-up with her primary care doctor in 2 days, return to the emergency room and she develops worsening signs and symptoms. Patient will return to emergency room as needed. She understands need to follow-up with all cultures today. Diagnosis Primary Impression: Cellulitis of left breast Additional Impression: CHF (congestive heart failure) Patient Instructions: General Instructions, Narcotic given in the ED Additional Instructions: Please follow up with your primary care doctor in 2 days Please follow up with all cultures from today Return to ER if symptoms worsen or persist Return to ER as needed Please take all antibiotics as prescribed Med/Other Pt SpecificInfo: Prescription(s) given Scripts Acetaminophen-Codeine (Tylenol-Codeine #3) 300-30 mg Tab 1 TAB PO Q4H Y for PAIN, #10 TAB 0 Refills Prov: Aniyah Freed DO 11/28/16 Clindamycin (Clindamycin) 300 Mg Cap 300 MG PO Q6H for Infection for 10 Days, CAP 0 Refills Prov: Aniyah Freed DO 11/28/16 Disposition: 01 DISCHARGE HOME Condition: Stable Aniyah Freed DO Nov 28, 2016 10:56
[2016-11-28] MEDS ORDERED: VANCOMYCIN INJ 1,000 MG in SODIUM CHLOR 0.9% 250 ML INJ 250 ML IV ONE (11:00)
[2016-11-28] MEDS ORDERED: VANCOMYCIN 1,000 MG/NS 250 ML IV ONE ×2 (12:30)
--- NOTE | 2016-11-28 12:31 | RADRPT ---
EXAM DATE/TIME: 11/28/2016 11:41 [facility] COMPARISON: CT PULMONARY ANGIOGRAM, October 11, 2015, 20:59. INDICATIONS : Left breast pain and swelling; evaluate for abscess. IV CONTRAST: 75 cc Omnipaque 350 (iohexol) IV RADIATION DOSE: 6.7 CTDIvol (mGy) MEDICAL HISTORY : Cardiovascular disease. Chronic obstructive pulmonary disease. Hypertension. SURGICAL HISTORY : Coronary artery stent. Defibrillator.Pacemaker. ENCOUNTER: Initial ACUITY: 4 - 6 days PAIN SCALE: 6/10 LOCATION: Left upper chest TECHNIQUE: Volumetric scanning of the chest was performed. Using automated exposure control and adjustment of t he mA and/or kV according to patient size, radiation dose was kept as low as reasonably achievable to obtain optimal diagnostic quality images. DICOM format image data is available electronically for review and comparison. Follow-up recommendations for detected pulmonary nodules are based at a minimum on nodule size and pa tient risk factors according to Fleischner Society Guidelines. FINDINGS: The study is degraded by breathing motion artifact. LUNGS: Linear atelectasis within both lung bases but more pronounced on the left. No discrete infiltrate. PLEURA: A tiny left pleural effusion. No effusion on the right. MEDIASTINUM: Considerable cardiomegaly. No pericardial effusion. Pulmonary arteries are prominent. Aorta is normal in caliber with scattered calcified atherosclerotic plaque. There is a replaced right subclavian art priscilla. AXILLAE: There is a left-sided pacing device to generate significant beam hardening artifact. The left breast is enlarged with diffuse stranding of the subcutaneous fat as well as thickening of the scan. No disc rete fluid collection observed to suggest an abscess. The subcutaneous stranding extends across the m idline into the right breast as well. The right breast is less involved. The subcutaneous stranding t racks inferiorly along the intra-abdominal wall. SKELETAL: Within normal limits for patient age. MISCELLANEOUS: Hepatic steatosis. Reflux of contrast into the hepatic veins. Small volume ascites. CONCLUSION: 1. Diffuse edema throughout the chest and anterior abdominal wall but most pronounced involving the l eft breast. No abscess observed. 2. Pronounced cardiomegaly. 3. Tiny left effusion. 4. Small volume ascites. Quinn Talbot Jr., MD on November 28, 2016 at 12:25 Board Certified Radiologist. This report was verified electronically.
[2016-11-28] MEDS ORDERED: TYLETAB34 PO (12:39)
[2016-11-28] MEDS ORDERED: CLIN1CAP6 PO (12:39)
[2016-11-28] MEDS ORDERED: FUROSEMIDE 100 MG/10 ML VIAL IV PUSH ONE (13:15)
[2016-11-28] MEDS ORDERED: POTASSIUM CHLORIDE 10 MEQ CONTROLLED RELEASE TAB PO ONE (13:15)
--- NOTE | 2016-11-28 17:53 | EKG ---
Date Performed: 11/28/2016 Time Performed: 10:05:46 PTAGE: 71 years EKG: SINUS TACHYCARDIA WITH OCCASIONAL VENTRICULAR PREMATURE COMPLEXES LOW QRS VOLTAGE IN PRECOR DIAL LEADS POSSIBLE ANTERIOR MYOCARDIAL INFARCTION PROBABLE INFERIOR MYOCARDIAL INFARCTION ABNORMAL E CG Compared to prior tracing no significant change PREVIOUS TRACING : 10/11/2015 17.39 DOCTOR: Hunter Burroughs Interpretating Date/Time 11/28/2016 17:51:34
== END 2016-11-28 14:10 | disposition home or self-care (01) ==
LOC: NEPC 09:39
DX: N61.0 Mastitis without abscess (principal); I50.9 Heart failure, unspecified; I11.0 Hypertensive heart disease with heart failure; E11.9 Type 2 diabetes mellitus without complications; I25.10 Atherosclerotic heart disease of native coronary artery without angina pectoris; R00.0 Tachycardia, unspecified; J44.9 Chronic obstructive pulmonary disease, unspecified; F17.200 Nicotine dependence, unspecified, uncomplicated; Z79.899 Other long term (current) drug therapy
CPT/HCPCS: 71010; 71260; 80053; 82550; 83605; 83690; 83735; 83880; 84484; 85025; 85610; 85730; 87040; 93005; 96361; 96365; 96375; 99285; J1940; J3370; J7040; J7050; Q9967

== ENCOUNTER 2016-12-10 12:39 | Inpatient (IN) | payer OTHER, MEDICARE ==
[~2016-12-10] VITALS: Ht 152.4 cm; Wt 77.0 kg
[2016-12-10] VITALS (8 sets, daily range): BP systolic 96–113; BP diastolic 53–70; PULSE 87–112; RESP 18–20; TEMP 97.1–101.9; O2SAT 88–98
[~2016-12-10 12:39] MED LIST changes: +CLIN1CAP6 PO; +TYLETAB34 PO
[2016-12-10] MEDS ORDERED: SODIUM CHLOR 0.9% 1000 ML INJ 1,000 ML IV ONE ×2 (12:56)
[2016-12-10] MEDS ORDERED: SODIUM CHLOR 0.9% 1000 ML INJ 100 ML IV ONE (12:56)
[2016-12-10] MEDS ORDERED: IBUPROFEN 800 MG TAB PO ONE (13:00)
[2016-12-10] MEDS ORDERED: HYDROmorphone HCL PF 1 MG/ML VIAL IV ONE (13:00)
[2016-12-10] MEDS ORDERED: VANCOMYCIN INJ 1,000 MG in SODIUM CHLOR 0.9% 250 ML INJ 250 ML IV ONE (13:00)
[2016-12-10] MEDS ORDERED: ONDANSETRON HCL 4 MG/2 ML VIAL IV ONE (13:00)
--- NOTE | 2016-12-10 13:06 | PD ---
HPI Chief Complaint: Altered Mental Status Time Seen by Provider: 13:05 Travel History International Travel<30 days: No Contact w/Intl Traveler<30days: No Traveled to known affect area: No History of Present Illness HPI 71 YO F with PMH of DM, HTN, CAD, CHF, DVT on COUMADIN presents to the ED via EMS for evaluation of AMS. Per EMS report the patients daughters were visiting her this morning and stated that "she is not acting like herself. " On presentation the patient is alert, oriented x 4. She answers questions appropriately. She states that she is having pain in her left breast "for a few days." She endorses accompanying fever, chills, nausea, diminished appetite. Her PCP is Dr. De La Cruz. [facility] Past Medical History Hx Anticoagulant Therapy: Yes Arthritis: No Asthma: Yes Autoimmune Disease: No Blood Disorders: No Anxiety: No Depression: No Heart Rhythm Problems: No Cancer: No Cardiac Catheterization: Yes Cardiovascular Problems: Yes High Cholesterol: No Chemotherapy: No Chest Pain: No Congestive Heart Failure: Yes COPD: Yes Cerebrovascular Accident: No Diabetes: Yes Diminished Hearing: No Endocrine: Yes Gastrointestinal Disorders: No GERD: No Glaucoma: No Genitourinary: No Headaches: No Hepatitis: No Hiatal Hernia: No Hypertension: Yes Immune Disorder: No Kidney Stones: No Musculoskeletal: No Neurologic: No Psychiatric: No Reproductive: Yes (HX HYSTERECTOMY) Respiratory: Yes Integumentary: Yes (RIGHT BREAST LUMPECTOMY) Immunizations Current: Yes Migraines: No Myocardial Infarction: No Radiation Therapy: No Renal Failure: No Seizures: No Sickle Cell Disease: No Sleep Apnea: No Thyroid Disease: No Ulcer: No Menopausal: Yes Past Surgical History Abdominal Surgery: Yes (APPENDECTOMY) AICD: Yes Appendectomy: Yes Arteriovenous Shunt: No Cardiac Surgery: Yes (3 CARDIAC STENTS) Cholecystectomy: No Coronary Stent: Yes (x3) Ear Surgery: No Endocrine Surgery: No Eye Surgery: No Genitourinary Surgery: No Gynecologic Surgery: Yes (HYSTERECTOMY) Hysterectomy: Yes Insulin Pump: No Joint Replacement: No Oral Surgery: No Pacemaker: Yes (MEDTRONIC 2013 MODEL #[id number]) Thoracic Surgery: No Other Surgery: Yes (defribillator,lumpectomny r breast) Social History Alcohol Use: No Tobacco Use: Yes (1 PPD) Substance Use: No Allergies-Medications (Allergen,Severity, Reaction): Coded Allergies: penicillin G (Unverified Allergy, Severe, rash, 11/28/16) benazepril (Unverified Allergy, Mild, 11/28/16) HUMBLE inhibitor angioedema, swelling of the face lips and anterior tongue captopril (Unverified Allergy, Mild, 11/28/16) HUMBLE inhibitor angioedema, swelling of the face lips and anterior tongue enalaprilat (Unverified Allergy, Mild, 11/28/16) HUMBLE inhibitor angioedema, swelling of the face lips and anterior tongue fosinopril (Unverified Allergy, Mild, 11/28/16) HUMBLE inhibitor angioedema, swelling of the face lips and anterior tongue lisinopril (Unverified Allergy, Mild, 11/28/16) HUMBLE inhibitor angioedema, swelling of the face lips and anterior tongue quinapril (Unverified Allergy, Mild, 11/28/16) HUMBLE inhibitor angioedema, swelling of the face lips and anterior tongue Uncoded Allergies: NON COMPATIBLE PACEMAKER (Adverse Reaction, Severe, MRI PRECAUTION / PACEMAKER, 11/03/14) MRI PRECAUTION. PACEMAKER Reported Meds & Prescriptions Reported Meds & Active Scripts Active Tylenol-Codeine #3 (Acetaminophen-Codeine) 300-30 mg Tab 1 Tab PO Q4H PRN Clindamycin (Clindamycin HCl) 300 Mg Cap 300 Mg PO Q6H 10 Days Reported Nitrofurantoin Macrocrystal 100 Mg Cap 100 Mg PO BID Magnesium 200 Mg Tab 400 Mg PO DAILY Dawes (Hydrocodone-Acetaminophen) 5-325 mg Tab 1 Tab PO BID PRN Ferrous Sulfate 325 Mg (65 Mg Iron) Tablet 325 Mg PO BID Warfarin 4 Mg Tab 4 Mg PO DAILY Isosorbide Mononitrate ER (Isosorbide Mononitrate) 30 Mg Raheem 30 Mg PO DAILY Enalapril (Enalapril Maleate) 10 Mg Tab 10 Mg PO BID Metoprolol Succinate ER 24 HR (Metoprolol Succinate) 50 Mg Tab 50 Mg PO DAILY K-Tab (Potassium Chloride) 10 Meq Tab 10 Meq PO BID Bumetanide 2 Mg Tab 2 Mg PO HS Amlodipine (Amlodipine Besylate) 5 Mg Tab 5 Mg PO DAILY Amiodarone (Amiodarone HCl) 200 Mg Tab 200 Mg PO DAILY Review of Systems Except as stated in HPI: all other systems reviewed are Neg Physical Exam Narrative GENERAL: Well-nourished, well-developed, dry, ill-appearing black female in no acute distress. SKIN: Focused skin assessment warm/dry. Warm, ropy induration in the outer, lower quadrant of the left breast. HEAD: Normocephalic. EYES: No scleral icterus. No injection or drainage. NECK: Supple, trachea midline. No JVD or lymphadenopathy. CARDIOVASCULAR: Regular rate and rhythm without murmurs, gallops, or rubs. RESPIRATORY: Breath sounds clear and equal bilaterally. No accessory muscle use. GASTROINTESTINAL: Abdomen soft, non-tender, nondistended. Active bowel sounds. MUSCULOSKELETAL: No cyanosis, or edema. BACK: Nontender without obvious deformity. No CVA tenderness. Data Data Last Documented VS Vital Signs Date Time Temp Pulse Resp B/P (MAP) Pulse Ox O2 Delivery O2 Flow Rate FiO2 12/10/16 14:30 101.7 110 18 104/59 (74) 94 Nasal Cannula 2.00 Orders Orders Complete Blood Count With Diff (12/10/16 12:56) Comprehensive Metabolic Panel (12/10/16 12:56) Lactic Acid Sepsis Protocol (12/10/16 12:56) Urinalysis - C+S If Indicated (12/10/16 12:56) Blood Culture (12/10/16 12:56) Chest, Single Ap (12/10/16 12:56) Blood Glucose (12/10/16 12:56) Ecg Monitoring (12/10/16 12:56) Iv Access Insert/Monitor (12/10/16 12:56) Oximetry (12/10/16 12:56) Ibuprofen (Motrin) (12/10/16 13:00) Hydromorphone Pf Inj (Dilaudid Pf Inj) (12/10/16 13:00) Ondansetron Inj (Zofran Inj) (12/10/16 13:00) Sodium Chlor 0.9% 1000 Ml Inj (Ns 1000 M (12/10/16 12:56) Sodium Chlor 0.9% 1000 Ml Inj (Ns 1000 M (12/10/16 12:56) Vancomycin Inj (Vancomycin Inj) (12/10/16 13:00) Us Breast Unilateral (12/10/16 ) Urine Culture (12/10/16 13:10) Cefepime Inj (Maxipime Inj) (12/10/16 14:15) Admit Order (Ed Use Only) (12/10/16 14:39) Labs Laboratory Tests Test 12/10/16 13:05 12/10/16 13:10 White Blood Count 31.6 TH/MM3 Red Blood Count 4.65 MIL/MM3 Hemoglobin 10.2 GM/DL Hematocrit 32.5 % Mean Corpuscular Volume 69.9 FL Mean Corpuscular Hemoglobin 21.9 PG Mean Corpuscular Hemoglobin Concent 31.4 % Red Cell Distribution Width 23.1 % Platelet Count 417 TH/MM3 Mean Platelet Volume 7.6 FL Neutrophils (%) (Auto) 91.3 % Lymphocytes (%) (Auto) 1.9 % Monocytes (%) (Auto) 6.5 % Eosinophils (%) (Auto) 0.1 % Basophils (%) (Auto) 0.2 % Neutrophils # (Auto) 28.8 TH/MM3 Lymphocytes # (Auto) 0.6 TH/MM3 Monocytes # (Auto) 2.0 TH/MM3 Eosinophils # (Auto) 0.0 TH/MM3 Basophils # (Auto) 0.1 TH/MM3 CBC Comment AUTO DIFF Differential Total Cells Counted 100 Neutrophils % (Manual) 85 % Band Neutrophils % 5 % Lymphocytes % 4 % Monocytes % 6 % Neutrophils # (Manual) 28.4 TH/MM3 Differential Comment FINAL DIFF MANUAL Platelet Estimate HIGH Platelet Morphology Comment ENLARGED Target Cells 1+ Ovalocytes 1+ Blood Urea Nitrogen 13 MG/DL Creatinine 1.49 MG/DL Random Glucose 59 MG/DL Total Protein 8.6 GM/DL Albumin 2.7 GM/DL Calcium Level 8.5 MG/DL Alkaline Phosphatase 113 U/L Aspartate Amino Transf (AST/SGOT) 43 U/L Alanine Aminotransferase (ALT/SGPT) 13 U/L Total Bilirubin 4.1 MG/DL Sodium Level 135 MEQ/L Potassium Level 3.3 MEQ/L Chloride Level 96 MEQ/L Carbon Dioxide Level 27.2 MEQ/L Anion Gap 12 MEQ/L Estimat Glomerular Filtration Rate 42 ML/MIN Lactic Acid Level 3.5 mmol/L Urine Color ORANGE Urine Turbidity HAZY Urine pH 6.0 Urine Specific [place] 1.015 Urine Protein 300 mg/dL Urine Glucose (UA) NEG mg/dL Urine Ketones NEG mg/dL Urine Occult Blood TRACE Urine Nitrite NEG Urine Bilirubin MOD Urine Urobilinogen 4.0 MG/DL Urine Leukocyte Esterase TRACE Urine RBC 3 /hpf Urine WBC 9 /hpf Urine Squamous Epithelial Cells 1 /hpf Urine Amorphous Sediment RARE Urine Bacteria RARE /hpf Urine Hyaline Casts 2 /lpf Microscopic Urinalysis Comment CATH-CULTURE IND MDM Medical Decision Making Medical Screen Exam Complete: Yes Emergency Medical Condition: Yes Differential Diagnosis sepsis versus breast abscess versus infection of pacemaker versus other Narrative Course 71 YO F with PMH of DM, HTN, CAD, CHF, DVT on COUMADIN presents to the ED via EMS for evaluation of AMS. Per EMS report the patients daughters were visiting her this morning and stated that "she is not acting like herself. " On presentation the patient is alert, oriented x 4. She answers questions appropriately. She states that she is having pain in her left breast "for a few days." She endorses accompanying fever, chills, nausea, diminished appetite. Her PCP is Dr. De La Cruz. Patient is febrile 101.9, tachycardic 112, respiratory rate between 18 and 26 breaths per minute, 88% O2 sat on room air, improved to 94% on 2 L by nasal cannula on presentation. Physical exam reveals a dry and ill-appearing black female in no acute distress. There is the induration in the outer, lower quadrant of the left breast with the physical exam is otherwise unremarkable. Review of the record reveals that the patient was seen on 11/28 and treated outpatient for breast cellulitis. She endorses compliance with the clindamycin with no improvement of symptoms. She states that she also saw Dr. daniel who ordered a CT of the chest but she states that she has been too ill to have that completed. IV was established. Blood cultures were obtained. Patient was administered 2 L normal saline, 4 mg Zofran, 0.5 mg Dilaudid, 800 mg ibuprofen, IV vancomycin and cefepime. CBC: WBC 31.6 with left shift. Hemoglobin 10.2. Lactic acid: 3.5. CMP: BUN 13, creatinine 1.49. Potassium 3.3. UA: Hazy, trace leukocyte esterase, rare bacteria. Culture pending. US left breast: Ill-defined hypoechoic area below the nipple with surrounding edema. The finding is nonspecific and could represent hemorrhage, fluid or infection. CXR: Mild pulmonary vascular congestion. Marked cardiomegaly. The patient meets severe sepsis criteria. I spoke with Dr. Anthony who agrees to accept the patient to the medicine service. Please see medicine notes for disposition. Sepsis Criteria SIRS Criteria (2 or more): Temp > 100.9 or < 96.8, Heart rate over 90, RR > 20 or PaCO2 < 32, WBC > 46534, < 4000 or > 10% bands Sepsis Criteria (SIRS+source): Infect source susp/known Severe Sepsis (+one): Lactate >2 Criteria Outcome: Meets severe sepsis criteria Gayle West Dec 10, 2016 13:05
[2016-12-10 13:33] LABS: AUTOMATED NEUTROPHIL # 28.8 TH/MM3 (1.8-7.7); BASOPHIL # 0.1 TH/MM3 (0-0.2); BASOPHIL % 0.2 % (0.0-2.0); EOSINOPHIL % 0.1 % (0.0-4.0); HEMATOCRIT 32.5 % (35.0-46.0); LYMPH % 1.9 % (9.0-44.0); LYMPHOCYTE # 0.6 TH/MM3 (1.0-4.8); MEAN CELL VOLUME 69.9 FL (80.0-100.0); MEAN CORPUSCULAR HEMOGLOBIN 21.9 PG (27.0-34.0); MEAN CORPUSCULAR HGB CONC 31.4 % (32.0-36.0); MONO % 6.5 % (0.0-8.0); NEUT % 91.3 % (16.0-70.0); PLATELET COUNT 417 TH/MM3 (150-450); RED BLOOD COUNT 4.65 MIL/MM3 (4.00-5.30); RED CELL DISTRIBUTION WIDTH 23.1 % (11.6-17.2); WHITE BLOOD COUNT 31.6 TH/MM3 (4.0-11.0)
[2016-12-10 13:38] LABS: ALKALINE PHOSPHATASE 113 U/L (45-117); ALT (GPT) 13 U/L (10-53); ANION GAP 12 MEQ/L (5-15); AST (GOT) 43 U/L (15-37); BICARBONATE 27.2 MEQ/L (21.0-32.0); BLOOD UREA NITROGEN 13 MG/DL (7-18); CHLORIDE 96 MEQ/L (98-107); GLOMERULAR FILTRATION RATE 42 ML/MIN (>89); POTASSIUM 3.3 MEQ/L (3.5-5.1); SODIUM (NA) 135 MEQ/L (136-145); TOTAL BILIRUBIN ADULT 4.1 MG/DL (0.2-1.0)
[2016-12-10 13:47] LABS: BACTERIA, URINE RARE /hpf; BLOOD, URINE TRACE (NEG); COMMENT (UR) CATH-CULTURE IND; CULTURE IF INDICATED CATH CULTURE IND; GLUCOSE,URINE NEG (NEG); HYALINE CAST, URINE 2 /lpf (RARE); KETONE, URINE NEG (NEG); NITRITE,URINE NEG (NEG); SQUAMOUS EPITHELIAL CELL URINE 1 /hpf (0-5)
[2016-12-10] MEDS ORDERED: NITR1CAP36 PO (13:47)
[2016-12-10] MEDS ORDERED: MAGN200T PO (13:47)
[2016-12-10] MEDS ORDERED: NORC5TAB PO (13:47)
[2016-12-10] MEDS ORDERED: FERR325T8 PO (13:47)
[2016-12-10] MEDS ORDERED: WARF-20 PO (13:47)
[2016-12-10] MEDS ORDERED: ENAL10TA PO (13:47)
[2016-12-10] MEDS ORDERED: ISOS30TA3 PO (13:47)
[2016-12-10 13:51] LABS: HEMO FLAGS AUTO DIFF
[2016-12-10 13:52] LABS: URINE COLOR ORANGE (YELLW/STRAW)
[2016-12-10 14:10] LABS: BANDS 5 % (0-6); NEUTROPHIL # MANUAL DIFF 28.4 TH/MM3 (1.8-7.7); OVALOCYTES 1+ (NORMAL); POLYS (SEG NEUTROPHILS) 85 % (16-70); TARGET CELLS 1+ (NORMAL); WBC DIFF SAMPLE 100
[2016-12-10 14:11] LABS: PLATELET ESTIMATE SMEAR HIGH (NORMAL); PLATELET MORPHOLOGY ENLARGED (NORMAL); SCAN/DIFF FINAL DIFF MANUAL
[2016-12-10] MEDS ORDERED: CEFEPIME INJ 2,000 MG in SODIUM CHLORIDE 0.9% INJ 100 ML IV ONE (14:15)
--- NOTE | 2016-12-10 14:19 | RADRPT ---
EXAM DATE/TIME: 12/10/2016 13:18 [facility] COMPARISON: CHEST SINGLE AP, November 28, 2016, 10:10. INDICATIONS : Fever and heavy breathing. MEDICAL HISTORY : Cardiovascular disease. Chronic obstructive pulmonary disease. Hypertension SURGICAL HISTORY : Coronary artery stent. Defibrillator.Pacemaker. ENCOUNTER: Initial ACUITY: 3 days PAIN SCORE: 0/10 LOCATION: Bilateral chest FINDINGS: The heart narayan enlarged. Left subclavian pacer leads are noted within the right ventricle. Mild p ulmonary vascular congestion is noted. No focal alveolar consolidation is noted. CONCLUSION: 1. Mild pulmonary vascular congestion. 2. Marked cardiomegaly. Lazaro Abebe MD on December 10, 2016 at 13:56 Board Certified Radiologist. This report was verified electronically.
--- NOTE | 2016-12-10 14:22 | RADRPT ---
EXAM DATE/TIME: 12/10/2016 13:43 [facility] COMPARISON: No previous studies available for comparison. INDICATIONS : Pain and swelling, left breast. MEDICAL HISTORY : Chronic obstructive pulmonary disease. Congestive heart failure. Diabetes. SURGICAL HISTORY : Hysterectomy. Appendectomy. Coronary stents. Pacemaker. Cardiac catheterization. Lumpectomy, right breast. ENCOUNTER: Initial ACUITY: 1 day PAIN SCORE: 0/10 LOCATION: Left breast. FINDINGS: A targeted left breast ultrasound study was performed and demonstrated ill-defined hypoechoic region below the nipple measuring up to 3.5 x 3.9 x 3.7 cm. Edema was noted to extend outward from this evelyn on into the adjacent soft tissues. CONCLUSION: Ill-defined hypoechoic area below the nipple with surrounding edema. The finding is n onspecific and could represent hemorrhage, fluid or infection. Sergio Haro MD on December 10, 2016 at 14:11 Board Certified Radiologist. This report was verified electronically.
[2016-12-10] MEDS ORDERED: LACTULOSE SYRUP 20 GM/30 ML CUP PO PRN (14:45)
[2016-12-10] MEDS ORDERED: BISACODYL 10 MG SUPP RECTAL PRN (14:45)
[2016-12-10] MEDS ORDERED: ONDANSETRON HCL 4 MG/2 ML VIAL IVP PRN (14:45)
[2016-12-10] MEDS ORDERED: NALOXONE HCL 0.4 MG/ML AMP IV PRN (14:45)
[2016-12-10] MEDS ORDERED: MAGNESIUM HYDROXIDE SUSP 30 ML CUP PO PRN (14:45)
[2016-12-10] MEDS ORDERED: SODIUM CHLORIDE 0.9% FLUSH 10 ML FLUSH IV FLUSH PRN (14:45)
[2016-12-10] MEDS ORDERED: SENNOSIDES 8.6 MG TAB PO PRN (14:45)
--- NOTE | 2016-12-10 15:00 | HHI.HP ---
[facility]ician Emily De La Cruz MD Admission Diagnosis severe sepsis, left breast cellulitis vs abscess Diagnoses: Chief Complaint: Altered mental status. Travel History International Travel<30 Days: No Contact w/Intl Traveler <30 Da: No Traveled to Known Affected Are: No Sepsis Criteria SIRS Criteria (2 or more): Temp > 100.9 or < 96.8, Heart rate over 90, RR > 20 or PaCO2 < 32, WBC > 91193, < 4000 or > 10% bands Sepsis Criteria (SIRS+source): Infect source susp/known Severe Sepsis (+one): Lactate >2, Acute Oliguria/Renal Failure Criteria Outcome: Meets SIRS criteria, Meets sepsis criteria, Meets severe sepsis criteria History of Present Illness Ms. Dailey is a 71 year old female with a history of DM, HTN, CAD, CHF, DVT currently on warfarin who was brought to the emergency department due to altered mental status noted by her daughters. Since yesterday 12/09/2016 patient 's daughters noted that patient is not herself. She was getting irritated easily with other people. She just did not look right. She did not what day of the week it was. On 11/28/2016, patient came to the emergency department with left-sided breast pain and swelling. At that visit patient reported that somebody accidentally bumped her head into her left breast. Patient was discharged from emergency department with clindamycin and Tylenol No. 3. Patient's daughter does not know if patient was actually taking antibiotics are not. Per daughter, patient did not complain of any chest pain, shortness of breath, cough. No changes in bowel or bladder habits. On arrival to the emergency department today patient's temperature 101.9, pulse 112, respiration 18-26, blood pressure 113/70, pulse oximetry 88% on room air. WBC 31.6, hemoglobin 10.2, platelet 417, neutrophil 91.3%. Sodium 135, potassium 3.3, BUN 13, creatinine 1.49, GFR 42, random glucose 59, lactic acid 3.5. Total bilirubin 4.1. Left breast ultrasound shows ill-defined hypoechoic area below the nipple with surrounding edema. Chest x-ray showed mild pulmonary vascular congestion. Gallbladder ultrasound showed possible cirrhosis but otherwise unremarkable. Review of Systems Except as stated in HPI: all other systems reviewed are Neg Past Family Social History Past Medical History Diabetes mellitus Hypertension Congestive heart failure Coronary artery disease status post cardiac stents placed Past Surgical History Right breast lumpectomy Hysterectomy Appendectomy Reported Medications Tylenol-Codeine #3 (Acetaminophen-Codeine) 300-30 mg Tab 1 Tab PO Q4H PRN Clindamycin (Clindamycin HCl) 300 Mg Cap 300 Mg PO Q6H 10 Days Reported Nitrofurantoin Macrocrystal 100 Mg Cap 100 Mg PO BID Magnesium 200 Mg Tab 400 Mg PO DAILY [place] (Hydrocodone-Acetaminophen) 5-325 mg Tab 1 Tab PO BID PRN Ferrous Sulfate 325 Mg (65 Mg Iron) Tablet 325 Mg PO BID Warfarin 4 Mg Tab 4 Mg PO DAILY Isosorbide Mononitrate ER (Isosorbide Mononitrate) 30 Mg Raheem 30 Mg PO DAILY Enalapril (Enalapril Maleate) 10 Mg Tab 10 Mg PO BID Metoprolol Succinate ER 24 HR (Metoprolol Succinate) 50 Mg Tab 50 Mg PO DAILY K-Tab (Potassium Chloride) 10 Meq Tab 10 Meq PO BID Bumetanide 2 Mg Tab 2 Mg PO HS Amlodipine (Amlodipine Besylate) 5 Mg Tab 5 Mg PO DAILY Amiodarone (Amiodarone HCl) 200 Mg Tab 200 Mg PO DAILY Allergies: Coded Allergies: penicillin G (Unverified Allergy, Severe, rash, 11/28/16) benazepril (Unverified Allergy, Mild, 11/28/16) HUMBLE inhibitor angioedema, swelling of the face lips and anterior tongue captopril (Unverified Allergy, Mild, 11/28/16) HUMBLE inhibitor angioedema, swelling of the face lips and anterior tongue enalaprilat (Unverified Allergy, Mild, 11/28/16) HUMBLE inhibitor angioedema, swelling of the face lips and anterior tongue fosinopril (Unverified Allergy, Mild, 11/28/16) HUMBLE inhibitor angioedema, swelling of the face lips and anterior tongue lisinopril (Unverified Allergy, Mild, 11/28/16) HUMBLE inhibitor angioedema, swelling of the face lips and anterior tongue quinapril (Unverified Allergy, Mild, 11/28/16) HUMBLE inhibitor angioedema, swelling of the face lips and anterior tongue Uncoded Allergies: NON COMPATIBLE PACEMAKER (Adverse Reaction, Severe, MRI PRECAUTION / PACEMAKER, 11/03/14) MRI PRECAUTION. PACEMAKER Family History Mother - heart disease Father - diabetes mellitus. Social History Smokes 1 pack per day. Drinks alcohol socially. Denies using illicit drugs. Lives with her . Physical Exam Vital Signs Vital Signs Date Time Temp Pulse Resp B/P (MAP) Pulse Ox O2 Delivery O2 Flow Rate FiO2 12/10/16 14:30 101.7 110 18 104/59 (74) 94 Nasal Cannula 2.00 12/10/16 13:05 94 Nasal Cannula 2.00 12/10/16 13:03 116 26 91 Nasal Cannula 2.00 12/10/16 13:00 101.9 112 18 113/70 (84) 88 Physical Exam GENERAL: Patient is sleepy does not wake up on verbal commands likely due to pain medication she received earlier. SKIN: No rashes, ecchymoses or lesions. Warm and dry. Left breast above the nipple has large induration. Also induration noted below nipple as well. There is no redness or drainage. HEAD: Atraumatic. Normocephalic. No temporal or scalp tenderness. EYES: Pupils equal round and reactive. No injection or drainage. ENT: Nose without bleeding, purulent drainage or septal hematoma. Airway patent. NECK: Trachea midline. No lymphadenopathy. Supple, nontender, no meningeal signs. CARDIOVASCULAR: Regular rhythm, tachycardic without murmurs, gallops, or rubs. No JVD. RESPIRATORY: Clear to auscultation. Breath sounds equal bilaterally. No wheezes , rales, or rhonchi. GASTROINTESTINAL: Abdomen soft, non-tender, nondistended. No guarding. MUSCULOSKELETAL: Extremities without clubbing, cyanosis, or edema. NEUROLOGICAL: Patient is drowsy. Could not obtain proper neurological exam. Laboratory Laboratory Tests Test 12/10/16 13:05 12/10/16 13:10 White Blood Count 31.6 Red Blood Count 4.65 Hemoglobin 10.2 Hematocrit 32.5 Mean Corpuscular Volume 69.9 Mean Corpuscular Hemoglobin 21.9 Mean Corpuscular Hemoglobin Concent 31.4 Red Cell Distribution Width 23.1 Platelet Count 417 Mean Platelet Volume 7.6 Neutrophils (%) (Auto) 91.3 Lymphocytes (%) (Auto) 1.9 Monocytes (%) (Auto) 6.5 Eosinophils (%) (Auto) 0.1 Basophils (%) (Auto) 0.2 Neutrophils # (Auto) 28.8 Lymphocytes # (Auto) 0.6 Monocytes # (Auto) 2.0 Eosinophils # (Auto) 0.0 Basophils # (Auto) 0.1 CBC Comment AUTO DIFF Differential Total Cells Counted 100 Neutrophils % (Manual) 85 Band Neutrophils % 5 Lymphocytes % 4 Monocytes % 6 Neutrophils # (Manual) 28.4 Differential Comment FINAL DIFF MANUAL Platelet Estimate HIGH Platelet Morphology Comment ENLARGED Target Cells 1+ Ovalocytes 1+ Blood Urea Nitrogen 13 Creatinine 1.49 Random Glucose 59 Total Protein 8.6 Albumin 2.7 Calcium Level 8.5 Alkaline Phosphatase 113 Aspartate Amino Transf (AST/SGOT) 43 Alanine Aminotransferase (ALT/SGPT) 13 Total Bilirubin 4.1 Sodium Level 135 Potassium Level 3.3 Chloride Level 96 Carbon Dioxide Level 27.2 Anion Gap 12 Estimat Glomerular Filtration Rate 42 Lactic Acid Level 3.5 Urine Color ORANGE Urine Turbidity HAZY Urine pH 6.0 Urine Specific [place] 1.015 Urine Protein 300 Urine Glucose (UA) NEG Urine Ketones NEG Urine Occult Blood TRACE Urine Nitrite NEG Urine Bilirubin MOD Urine Urobilinogen 4.0 Urine Leukocyte Esterase TRACE Urine RBC 3 Urine WBC 9 Urine Squamous Epithelial Cells 1 Urine Amorphous Sediment RARE Urine Bacteria RARE Urine Hyaline Casts 2 Microscopic Urinalysis Comment CATH-CULTURE IND Date/Time Source Procedure Growth Status 12/10/16 13:10 Blood Peripheral Aerobic Blood Culture Pending Received 12/10/16 13:10 Blood Peripheral Anaerobic Blood Culture Pending Received 12/10/16 13:10 Urine Catheterized Urine Urine Culture Pending Received Result Diagram: 12/10/16 1305 12/10/16 1305 Imaging Last Impressions Breast Ultrasound 12/10/16 0000 Signed Impressions: Service Date/Time: Saturday, December 10, 2016 13:43 - CONCLUSION: Ill- defined hypoechoic area below the nipple with surrounding edema. The finding is nonspecific and could represent hemorrhage, fluid or infection. MD Lisa Fernandezi VTE Risk Assessment Caprini VTE Risk Assessment: Mod/High Risk (score >= 2) Caprini Risk Assessment Model Point Value = 1 Point Value = 2 Point Value = 3 Point Value = 5 Age 41-60 Minor surgery BMI > 25 kg/m2 Swollen legs Varicose veins or History of unexplained or recurrent spontaneous Oral contraceptives or hormone replacement Sepsis (< 1 month) Serious lung disease, including pneumonia (< 1 month) Abnormal pulmonary function Acute myocardial infarction Congestive heart failure (< 1 month) History of inflammatory bowel disease Medical patient at bed rest Age 61-74 Arthroscopic surgery Major open surgery (> 45 min) Laparoscopic surgery (> 45 min) Malignancy Confined to bed (> 72 hours) Immobilizing plaster cast Central venous access Age >= 75 History of VTE Family history of VTE Factor V Leiden Prothrombin [id number] Lupus anticoagulant Anticardiolipin antibodies Elevated serum homocysteine Heparin-induced thrombocytopenia Other congenital or acquired thrombophilia Stroke (< 1 month) Elective arthroplasty Hip, pelvis, or leg fracture Acute spinal cord injury (< 1 month) Prophylaxis Regimen Total Risk Factor Score Risk Level Prophylaxis Regimen 0-1 Low Early ambulation 2 Moderate Order ONE of the following: *Sequential Compression Device (SCD) *Heparin 5000 units SQ BID 3-4 Higher Order ONE of the following medications: *Heparin 5000 units SQ TID *Enoxaparin/Lovenox 40 mg SQ daily (WT < 150 kg, CrCl > 30 mL/min) *Enoxaparin/Lovenox 30 mg SQ daily (WT < 150 kg, CrCl > 10-29 mL/min) *Enoxaparin/Lovenox 30 mg SQ BID (WT < 150 kg, CrCl > 30 mL/min) AND/OR *Sequential Compression Device (SCD) 5 or more Highest Order ONE of the following medications: *Heparin 5000 units SQ TID (Preferred with Epidurals) *Enoxaparin/Lovenox 40 mg SQ daily (WT < 150 kg, CrCl > 30 mL/min) *Enoxaparin/Lovenox 30 mg SQ daily (WT < 150 kg, CrCl > 10-29 mL/min) *Enoxaparin/Lovenox 30 mg SQ BID (WT < 150 kg, CrCl > 30 mL/min) AND *Sequential Compression Device (SCD) Assessment and Plan Problem List: (1) Severe sepsis ICD Code: A41.9 - Sepsis, unspecified organism; R65.20 - Severe sepsis without septic shock (2) Cellulitis of left breast ICD Code: N61.0 - Mastitis without abscess (3) HARVEY (acute kidney injury) ICD Code: N17.9 - Acute kidney failure, unspecified (4) Hypokalemia ICD Code: E87.6 - Hypokalemia Status: Acute Assessment and Plan Ms. Dailey is a 71-year-old female with a history of hypertension, hyperlipidemia, CAD, CHF, diabetes mellitus who presented to the emergency department today for an evaluation of her altered mental status. Daughters noted that patient was easily agitated and not herself since yesterday 12/09/2016. Patient was evaluated in the emergency department on 2016 for left breast swelling and pain. Patient was discharged with clindamycin and Tylenol 3 in the previous visit. On arrival to the patient has leukocytosis, fever, lactic acid 3.5. She also was found to have acute kidney injury. - Severe sepsis - Probable left breast cellulitis - Possible AICD-related infection - Patient received ibuprofen 800 mg, vancomycin 1000 mg, cefepime 2 g in the emergency department. - Continue Cefepime 2g Q8hrs and Vancomycin. Pt is allergic to PCN. - She also received 2 L of normal saline. Continue NS @100cc/hour. - Chest x-ray - image reviewed by me shows AICD as well as cardiomegaly and bilateral mild pulmonary edema. - Left breast ultrasound and gallbladder ultrasound reports reviewed. Left breast finding is concerning for hemorrhage, fluid or infection. - Consult Infectious disease. - Acute kidney injury - Baseline creatinine 0.99 on 11/28/2016. Creatinine on admission 1.49. - We'll continue to monitor with supportive care. Avoid nephrotoxins. - Hypertension - CAD status post previous stent placements. - Ischemic cardiomyopathy - status post AICD placement about 2 years ago. - Systolic chronic congestive heart failure - Ejection fraction in 2015 was 10-15%. - Continue amlodipine 5 mg with holding parameters. - Hold HUMBLE inhibitor for now. - Continue metoprolol succinate 50 mg daily with holding parameters. - Hold diuretics. - History of DVT - Currently on Warfarin. Will obtain PT/INR before deciding whether to continue Warfarin or not. Full code. Warfarin. Physician Certification 2 Midnight Certification Type: Admission for Inpatient Services Order for Inpatient Services The services are ordered in accordance with Medicare regulations or non- Medicare payer requirements, as applicable. In the case of services not specified as inpatient-only, they are appropriately provided as inpatient services in accordance with the 2-midnight benchmark. Estimated LOS (days): 3 days is the estimated time the patient will need to remain in the hospital, assuming treatment plan goals are met and no additional complications. Post-Hospital Plan: Not yet determined Chayo Anthony DO Dec 10, 2016 14:59
--- NOTE | 2016-12-10 15:03 | PD ---
Data Data Last Documented VS Vital Signs Date Time Temp Pulse Resp B/P (MAP) Pulse Ox O2 Delivery O2 Flow Rate FiO2 12/10/16 14:30 101.7 110 18 104/59 (74) 94 Nasal Cannula 2.00 Orders Orders Complete Blood Count With Diff (12/10/16 12:56) Comprehensive Metabolic Panel (12/10/16 12:56) Lactic Acid Sepsis Protocol (12/10/16 12:56) Urinalysis - C+S If Indicated (12/10/16 12:56) Blood Culture (12/10/16 12:56) Chest, Single Ap (12/10/16 12:56) Blood Glucose (12/10/16 12:56) Ecg Monitoring (12/10/16 12:56) Iv Access Insert/Monitor (12/10/16 12:56) Oximetry (12/10/16 12:56) Ibuprofen (Motrin) (12/10/16 13:00) Hydromorphone Pf Inj (Dilaudid Pf Inj) (12/10/16 13:00) Ondansetron Inj (Zofran Inj) (12/10/16 13:00) Sodium Chlor 0.9% 1000 Ml Inj (Ns 1000 M (12/10/16 12:56) Sodium Chlor 0.9% 1000 Ml Inj (Ns 1000 M (12/10/16 12:56) Vancomycin Inj (Vancomycin Inj) (12/10/16 13:00) Us Breast Unilateral (12/10/16 ) Urine Culture (12/10/16 13:10) Cefepime Inj (Maxipime Inj) (12/10/16 14:15) Admit Order (Ed Use Only) (12/10/16 14:39) Labs Laboratory Tests Test 12/10/16 13:05 12/10/16 13:10 White Blood Count 31.6 TH/MM3 Red Blood Count 4.65 MIL/MM3 Hemoglobin 10.2 GM/DL Hematocrit 32.5 % Mean Corpuscular Volume 69.9 FL Mean Corpuscular Hemoglobin 21.9 PG Mean Corpuscular Hemoglobin Concent 31.4 % Red Cell Distribution Width 23.1 % Platelet Count 417 TH/MM3 Mean Platelet Volume 7.6 FL Neutrophils (%) (Auto) 91.3 % Lymphocytes (%) (Auto) 1.9 % Monocytes (%) (Auto) 6.5 % Eosinophils (%) (Auto) 0.1 % Basophils (%) (Auto) 0.2 % Neutrophils # (Auto) 28.8 TH/MM3 Lymphocytes # (Auto) 0.6 TH/MM3 Monocytes # (Auto) 2.0 TH/MM3 Eosinophils # (Auto) 0.0 TH/MM3 Basophils # (Auto) 0.1 TH/MM3 CBC Comment AUTO DIFF Differential Total Cells Counted 100 Neutrophils % (Manual) 85 % Band Neutrophils % 5 % Lymphocytes % 4 % Monocytes % 6 % Neutrophils # (Manual) 28.4 TH/MM3 Differential Comment FINAL DIFF MANUAL Platelet Estimate HIGH Platelet Morphology Comment ENLARGED Target Cells 1+ Ovalocytes 1+ Blood Urea Nitrogen 13 MG/DL Creatinine 1.49 MG/DL Random Glucose 59 MG/DL Total Protein 8.6 GM/DL Albumin 2.7 GM/DL Calcium Level 8.5 MG/DL Alkaline Phosphatase 113 U/L Aspartate Amino Transf (AST/SGOT) 43 U/L Alanine Aminotransferase (ALT/SGPT) 13 U/L Total Bilirubin 4.1 MG/DL Sodium Level 135 MEQ/L Potassium Level 3.3 MEQ/L Chloride Level 96 MEQ/L Carbon Dioxide Level 27.2 MEQ/L Anion Gap 12 MEQ/L Estimat Glomerular Filtration Rate 42 ML/MIN Lactic Acid Level 3.5 mmol/L Urine Color ORANGE Urine Turbidity HAZY Urine pH 6.0 Urine Specific [place] 1.015 Urine Protein 300 mg/dL Urine Glucose (UA) NEG mg/dL Urine Ketones NEG mg/dL Urine Occult Blood TRACE Urine Nitrite NEG Urine Bilirubin MOD Urine Urobilinogen 4.0 MG/DL Urine Leukocyte Esterase TRACE Urine RBC 3 /hpf Urine WBC 9 /hpf Urine Squamous Epithelial Cells 1 /hpf Urine Amorphous Sediment RARE Urine Bacteria RARE /hpf Urine Hyaline Casts 2 /lpf Microscopic Urinalysis Comment CATH-CULTURE IND MDM Supervised Visit with KAVITA: Yes Narrative Course The history, exam, and medical decision-making in the associated midlevel provider note were completed with my assistance. I reviewed and agree with the findings presented. I attest that I had a [id number] encounter with the patient on the same day, and personally performed and documented my assessment and findings in the medical record. *My assessment and Findings: This is a 71-year-old female who presents to the emergency department with increasing pain and swelling of her left breast. She has a fever and was tachycardic on arrival. She is a white count of 31. She has some renal insufficiency and a lactic acid of 3.5. I suspect her source is cellulitis of the left breast. She is given vancomycin and cefepime. She has a total bilirubin of 4.1 which is increased from 2.1 on November 28. At that time she had a BNP of 2300. I suspect her total bilirubin is elevated in the setting of congestive heart failure however will obtain a right upper quadrant ultrasound to ensure were not missing an occult cholecystitis. Patient will be admitted for severe sepsis. Lorraine Larry MD Dec 10, 2016 15:03
[2016-12-10 15:18] LABS: LACTIC ACID GHOST NOT REPORTABLE
[2016-12-10] MEDS: SODIUM CHLOR 0.9% 1000 ML INJ 1,000 ML IV SCH ×2 (15:24→18:34)
--- NOTE | 2016-12-10 15:53 | RADRPT ---
EXAM DATE/TIME: 12/10/2016 15:21 [place] COMPARISON: No previous studies available for comparison. INDICATIONS : Elevated bilirubin. MEDICAL HISTORY : Hypertension. Congestive heart failure. COPD. Asthma. Diabetes. Dyspnea. SURGICAL HISTORY : Appendectomy. Hysterectomy. Cardiac cath. Cataracts. Cardiac stents. Pacemaker. Right lumpectomy. ENCOUNTER: Initial ACUITY: 1 day PAIN SCORE: Nonresponsive. LOCATION: Right upper quadrant MEASUREMENTS: LIVER: 19.9 cm length COMMON DUCT: 8 mm RIGHT KIDNEY: 11.3 x 5.1 x 4.7 cm FINDINGS: LIVER: The liver is enlarged measuring up to approximately 19.9 cm in greatest diameter. There is no focal l esion or ductal dilatation. Liver is mildly heterogeneous. The contours are mildly lobulated. There i s mixed hepatopedal and hepatofugal blood flow in the portal vein. COMMON DUCT: No intraluminal mass or stone visualized. GALLBLADDER: The gallbladder is normal in size and shape with apparent mild gallbladder wall thickening. There is no evidence of cholelithiasis or pericholecystic fluid. PANCREAS: The visualized portions are within normal limits. RIGHT KIDNEY: No evidence of hydronephrosis, stone, or mass. CONCLUSION: 1. The liver appears prominent and heterogeneous with lobular contours which could indicate underlyin g cirrhosis. 2. Apparent mild gallbladder wall thickening no evidence of cholelithiasis. 3. The common bile duct is at the upper limits of normal in size. Sergio Haro MD on December 10, 2016 at 15:49 Board Certified Radiologist. This report was verified electronically.
[2016-12-10] MEDS ORDERED: Vancomycin Consult Pharmacy 1 EA OTHER SCH (16:30)
[2016-12-10] MEDS ORDERED: CEFEPIME INJ 2,000 MG in SODIUM CHLORIDE 0.9% INJ 100 ML IV SCH (17:00)
[2016-12-10] MEDS: CEFEPIME INJ 2,000 MG in SODIUM CHLORIDE 0.9% INJ 100 ML IV SCH (18:34)
[2016-12-10 18:44] LABS: INTERNATIONAL NORMALIZED RATIO 1.6 RATIO; PROTHROMBIN TIME - PATIENT 17.6 SEC (9.8-11.6)
[2016-12-10] MEDS ORDERED: ENALAPRIL MALEATE 10 MG TAB PO SCH (21:00)
[2016-12-10] MEDS: DOCUSATE SODIUM 50 MG/SENNA 8.6 MG TAB PO SCH (23:49)
[2016-12-10] MEDS: SODIUM CHLORIDE 0.9% FLUSH 10 ML FLUSH IV FLUSH SCH (23:49)
[2016-12-11] VITALS (7 sets, daily range): BP systolic 90–105; BP diastolic 51–63; PULSE 87–95; RESP 18–21; TEMP 97.1–98.1; O2SAT 90–96
[2016-12-11] MEDS: CEFEPIME INJ 2,000 MG in SODIUM CHLORIDE 0.9% INJ 100 ML IV SCH ×3 (03:30→18:07)
[2016-12-11] MEDS: AMIODARONE 200 MG TAB PO SCH (09:00)
[2016-12-11] MEDS ORDERED: ISOSORBIDE MONONITRATE 30 MG TAB PO SCH (09:00)
[2016-12-11] MEDS: amLODIPine BESYLATE 5 MG TAB PO SCH (09:00)
[2016-12-11] MEDS: METOPROLOL SUCCINATE 50 MG EXTENDED RELEASE TAB PO SCH (09:00)
[2016-12-11] MEDS: SODIUM CHLORIDE 0.9% FLUSH 10 ML FLUSH IV FLUSH SCH ×2 (09:00→21:00)
[2016-12-11] MEDS: WARFARIN SOD 4 MG TAB PO SCH (10:03)
[2016-12-11] MEDS: DOCUSATE SODIUM 50 MG/SENNA 8.6 MG TAB PO SCH ×2 (10:03→21:00)
[2016-12-11 10:09] LABS: AUTOMATED NEUTROPHIL # 20.5 TH/MM3 (1.8-7.7); BASOPHIL # 0.1 TH/MM3 (0-0.2); BASOPHIL % 0.4 % (0.0-2.0); EOSINOPHIL # 0.1 TH/MM3 (0-0.4); EOSINOPHIL % 0.3 % (0.0-4.0); HEMATOCRIT 31.8 % (35.0-46.0); HEMO FLAGS DIFF FINAL; LYMPH % 1.5 % (9.0-44.0); LYMPHOCYTE # 0.3 TH/MM3 (1.0-4.8); MEAN CELL VOLUME 71.9 FL (80.0-100.0); MEAN CORPUSCULAR HEMOGLOBIN 21.5 PG (27.0-34.0); MONO % 5.8 % (0.0-8.0); PLATELET COUNT 298 TH/MM3 (150-450); RED BLOOD COUNT 4.43 MIL/MM3 (4.00-5.30); RED CELL DISTRIBUTION WIDTH 23.5 % (11.6-17.2); WHITE BLOOD COUNT 22.3 TH/MM3 (4.0-11.0)
[2016-12-11 10:16] LABS: MEAN CORPUSCULAR HGB CONC 29.8 % (32.0-36.0)
[2016-12-11 10:38] LABS: ALT (GPT) 22 U/L (10-53); ANION GAP 9 MEQ/L (5-15); AST (GOT) 84 U/L (15-37); BICARBONATE 27.6 MEQ/L (21.0-32.0); BLOOD UREA NITROGEN 21 MG/DL (7-18); CHLORIDE 99 MEQ/L (98-107); GLOMERULAR FILTRATION RATE 25 ML/MIN (>89); POTASSIUM 3.4 MEQ/L (3.5-5.1); SODIUM (NA) 136 MEQ/L (136-145)
[2016-12-11 10:40] LABS: ALKALINE PHOSPHATASE 99 U/L (45-117); TOTAL BILIRUBIN ADULT 5.2 MG/DL (0.2-1.0)
[2016-12-11] MEDS: SODIUM CHLOR 0.9% 1000 ML INJ 1,000 ML IV SCH ×2 (12:14→20:39)
--- NOTE | 2016-12-11 16:03 | HHI.PR ---
Subjective Remarks Follow-up for left breast cellulitis, sepsis. Patient is currently much more alert and conversational. She is sitting in her chair, daughter is at bedside. No fever or chills. Objective Vitals Vital Signs Date Time Temp Pulse Resp B/P (MAP) Pulse Ox O2 Delivery O2 Flow Rate FiO2 12/11/16 12:00 97.4 89 18 90/58 (69) 90 12/11/16 10:10 92 Nasal Cannula 3.00 12/11/16 08:00 97.1 93 20 98/59 (72) 92 12/11/16 04:00 93 Nasal Cannula 3.00 12/11/16 04:00 97.3 87 20 100/58 (72) 93 12/11/16 00:00 97.1 87 18 105/57 (73) 96 12/10/16 20:00 97.1 87 18 96/53 (67) 98 12/10/16 19:41 89 12/10/16 19:33 95 Nasal Cannula 2.00 12/10/16 19:33 Nasal Cannula 2.00 12/10/16 17:01 97.4 100 20 97/55 (69) 95 12/10/16 16:23 I/O 12/10/16 12/10/16 12/10/16 12/11/16 12/11/16 12/11/16 07:00 15:00 23:00 07:00 15:00 23:00 Intake Total 1250 ml 1220 ml Balance 1250 ml 1220 ml Intake Oral 120 ml IV Total 1250 ml 1100 ml # Voids 2 # Bowel Movements 2 Result Diagram: 12/11/16 0900 12/11/16 0900 Imaging Last Impressions Gall Bladder Ultrasound 12/10/16 1504 Signed Impressions: Service Date/Time: Saturday, December 10, 2016 15:21 - CONCLUSION: 1. The liver appears prominent and heterogeneous with lobular contours which could indicate underlying cirrhosis. 2. Apparent mild gallbladder wall thickening no evidence of cholelithiasis. 3. The common bile duct is at the upper limits of normal in size. Sergio Haro MD Chest X-Ray 12/10/16 1256 Signed Impressions: Service Date/Time: Saturday, December 10, 2016 13:18 - CONCLUSION: 1. Mild pulmonary vascular congestion. 2. Marked cardiomegaly. Lazaro Abebe MD Breast Ultrasound 12/10/16 0000 Signed Impressions: Service Date/Time: Saturday, December 10, 2016 13:43 - CONCLUSION: Ill- defined hypoechoic area below the nipple with surrounding edema. The finding is nonspecific and could represent hemorrhage, fluid or infection. Sergio Haro MD Objective Remarks GENERAL: Alert, NAD. SKIN: Warm and dry. Large indurated area over left breast. HEAD: Normocephalic. EYES: No scleral icterus. No injection or drainage. NECK: Supple, trachea midline. No JVD or lymphadenopathy. CARDIOVASCULAR: Regular rate and rhythm without murmurs, gallops, or rubs. RESPIRATORY: Breath sounds equal bilaterally. No accessory muscle use. GASTROINTESTINAL: Abdomen soft, non-tender, nondistended. MUSCULOSKELETAL: No cyanosis, or edema. BACK: Nontender without obvious deformity. No CVA tenderness. Procedures None A/P Problem List: (1) Severe sepsis ICD Code: A41.9 - Sepsis, unspecified organism; R65.20 - Severe sepsis without septic shock (2) Cellulitis of left breast ICD Code: N61.0 - Mastitis without abscess (3) HARVEY (acute kidney injury) ICD Code: N17.9 - Acute kidney failure, unspecified (4) Hypokalemia ICD Code: E87.6 - Hypokalemia Status: Acute Assessment and Plan Ms. Dailey is a 71-year-old female with a history of hypertension, hyperlipidemia, CAD, CHF, diabetes mellitus who presented to the emergency department today for an evaluation of her altered mental status. Daughters noted that patient was easily agitated and not herself since yesterday 12/09/2016. Patient was evaluated in the emergency department on 2016 for left breast swelling and pain. Patient was discharged with clindamycin and Tylenol 3 in the previous visit. On arrival to the patient has leukocytosis, fever, lactic acid 3.5. She also was found to have acute kidney injury. - Severe sepsis - Probable left breast cellulitis - Possible AICD-related infection - Patient received ibuprofen 800 mg, vancomycin 1000 mg, cefepime 2 g in the emergency department. - Continue Cefepime 2g Q8hrs and Vancomycin. Pt is allergic to PCN. - She also received 2 L of normal saline. Continue NS @100cc/hour. - Chest x-ray - image reviewed by me shows AICD as well as cardiomegaly and bilateral mild pulmonary edema. - Left breast ultrasound and gallbladder ultrasound reports reviewed. Left breast finding is concerning for hemorrhage, fluid or infection. - Infectious disease consult pending. - Acute kidney injury - Baseline creatinine 0.99 on 11/28/2016. Creatinine on admission 1.49 --> 2.32. - Worsening renal function maybe related to Vancomycin. Waiting for ID input. We could potentially switch abx to Ancef IV. - Hypertension - CAD status post previous stent placements. - Ischemic cardiomyopathy - status post AICD placement about 2 years ago. - Systolic chronic congestive heart failure - Ejection fraction in 2015 was 10-15%. - Continue amlodipine 5 mg with holding parameters. - Hold HUMBLE inhibitor for now. - Continue metoprolol succinate 50 mg daily with holding parameters. - Hold diuretics. - History of DVT - Currently on Warfarin. INR 1.6. We will continue Warfarin. Full code. Warfarin. Chayo Anthony DO Dec 11, 2016 4:03 pm
--- NOTE | 2016-12-11 17:26 | PD.ID.CON ---
History of Present Illness Service ID Consult Requested By Dr Anthony Reason for Consult gram positive sepsis Primary Care Physician Emily De La Cruz MD Diagnoses: History of Present Illness Ms. Dailey is a 71 year old female with a history of DM, HTN, CAD, CHF, DVT currently on warfarin who was brought to the emergency department due to altered mental status noted by her daughters started 2 days ago On 11/28/2016, patient presented to the emergency department with left-sided breast pain and swelling developped someone accidently bumped her head into her left breast. She has an ipsilateral pacemaker that was placed 2 yrs ago Patient was discharged from emergency department with clindamycin and Tylenol No. 3. On arrival to the emergency department today patient's temperature 101.9, tachypnea, tachycardia, hypoxia 88% on room air. Pt has leukocytosis with WBC 31.6, , lactic acid 3.5. Total bilirubin 4.1. Left breast ultrasound shows ill-defined hypoechoic area below the nipple with surrounding edema. Blood clx are growing GPC in pairs, clusters in 4/4 bottles Pt was started on vancomycin She is much better today and her mental status is back to baseline (independent livingt) Review of Systems Except as stated in HPI: all other systems reviewed are Neg Past Family Social History Allergies: Coded Allergies: penicillin G (Unverified Allergy, Severe, rash, 11/28/16) benazepril (Unverified Allergy, Mild, 11/28/16) HUMBLE inhibitor angioedema, swelling of the face lips and anterior tongue captopril (Unverified Allergy, Mild, 11/28/16) HUMBLE inhibitor angioedema, swelling of the face lips and anterior tongue enalaprilat (Unverified Allergy, Mild, 11/28/16) HUMBLE inhibitor angioedema, swelling of the face lips and anterior tongue fosinopril (Unverified Allergy, Mild, 11/28/16) HUMBLE inhibitor angioedema, swelling of the face lips and anterior tongue lisinopril (Unverified Allergy, Mild, 11/28/16) HUMBLE inhibitor angioedema, swelling of the face lips and anterior tongue quinapril (Unverified Allergy, Mild, 11/28/16) HUMBLE inhibitor angioedema, swelling of the face lips and anterior tongue Uncoded Allergies: NON COMPATIBLE PACEMAKER (Adverse Reaction, Severe, MRI PRECAUTION / PACEMAKER, 11/03/14) MRI PRECAUTION. PACEMAKER Past Medical History Diabetes mellitus Hypertension Congestive heart failure Coronary artery disease status post cardiac stents placed Past Surgical History Right breast lumpectomy: benign Hysterectomy Appendectomy Active Ordered Medications Medications where reviewed in EMR Antibiotics Include: vancomycin Family History heart disease; DM Social History + Tobacco. 1ppd socially ETOH. No Illicit Drugs. Physical Exam Vital Signs Vital Signs Date Time Temp Pulse Resp B/P (MAP) Pulse Ox O2 Delivery O2 Flow Rate FiO2 12/11/16 16:00 97.5 94 18 93/51 (65) 95 12/11/16 12:00 97.4 89 18 90/58 (69) 90 12/11/16 10:10 92 Nasal Cannula 3.00 12/11/16 08:00 97.1 93 20 98/59 (72) 92 12/11/16 07:15 95 Nasal Cannula 2.00 12/11/16 04:00 93 Nasal Cannula 3.00 12/11/16 04:00 97.3 87 20 100/58 (72) 93 12/11/16 00:00 97.1 87 18 105/57 (73) 96 12/10/16 20:00 97.1 87 18 96/53 (67) 98 12/10/16 19:41 89 12/10/16 19:33 95 Nasal Cannula 2.00 12/10/16 19:33 Nasal Cannula 2.00 Physical Exam CONSTITUTIONAL/GENERAL: This is an adequately nourished patient, in no apparent distress. TUBES/LINES/DRAINS: SKIN: No jaundice, rashes, or lesions. Ecchymoses on upper extremities. No wounds seen anteriorly. Skin temperature appropriate. Not diaphoretic. Breasts: well healed R breast scar just superioe to areala L breast is quite edemantous, with ill defined fluctuace area and AICD palpable in L UOQ HEAD: Atraumatic. Normocephalic. EYES: Pupils equal and round and reactive. Extraocular motions intact. No scleral icterus. No injection or drainage. Fundi not examined. ENT: Hearing grossly normal. Nose without bleeding or purulent drainage. Throat without visible erythema, exudates, masses, or lesions. Edentulous NECK: Trachea midline. Supple, nontender. No palpable thyroid enlargement or nodularity. CARDIOVASCULAR: Regular rate and rhythm without murmurs, gallops, or rubs. No JVD. Peripheral pulses symmetric. AICD palpable in L UOQ of the breast, some tenderness appreciated RESPIRATORY/CHEST: Symmetric, unlabored respirations. Clear to auscultation. Breath sounds equal bilaterally. No wheezes, rales, or rhonchi. GASTROINTESTINAL: Abdomen soft, non-tender, nondistended. No hepato-splenomegaly , or palpable masses. No guarding. Bowel sounds present. GENITOURINARY: Without palpable bladder distension. Wolff catheter in place. MUSCULOSKELETAL: Extremities without clubbing, cyanosis, or edema. No joint tenderness or effusion noted. No calf tenderness. No mottling or clubbing. RLE with prominent varices LYMPHATICS: No palpable cervical or supraclavicular adenopathy. NEUROLOGICAL: Awake and alert. Motor and sensory grossly within normal limits. Follows commands. Cognitively sharp. Moves all extremities. PSYCHIATRIC: No obvious anxiety/depression. no apparent hallucinations or other psychotic thought process. Laboratory Laboratory Tests Test 12/10/16 18:03 12/11/16 09:00 Prothrombin Time 17.6 Prothromb Time International Ratio 1.6 Lactic Acid Level 2.2 White Blood Count 22.3 Red Blood Count 4.43 Hemoglobin 9.5 Hematocrit 31.8 Mean Corpuscular Volume 71.9 Mean Corpuscular Hemoglobin 21.5 Mean Corpuscular Hemoglobin Concent 29.8 Red Cell Distribution Width 23.5 Platelet Count 298 Mean Platelet Volume 7.4 Neutrophils (%) (Auto) 92.0 Lymphocytes (%) (Auto) 1.5 Monocytes (%) (Auto) 5.8 Eosinophils (%) (Auto) 0.3 Basophils (%) (Auto) 0.4 Neutrophils # (Auto) 20.5 Lymphocytes # (Auto) 0.3 Monocytes # (Auto) 1.3 Eosinophils # (Auto) 0.1 Basophils # (Auto) 0.1 CBC Comment DIFF FINAL Differential Comment Blood Urea Nitrogen 21 Creatinine 2.32 Random Glucose 60 Total Protein 7.7 Albumin 2.4 Calcium Level 7.9 Alkaline Phosphatase 99 Aspartate Amino Transf (AST/SGOT) 84 Alanine Aminotransferase (ALT/SGPT) 22 Total Bilirubin 5.2 Sodium Level 136 Potassium Level 3.4 Chloride Level 99 Carbon Dioxide Level 27.6 Anion Gap 9 Estimat Glomerular Filtration Rate 25 Date/Time Source Procedure Growth Status 12/10/16 13:10 Blood Peripheral Aerobic Blood Culture - Preliminary Gram Positive Cocci Resulted 12/10/16 13:10 Anaerobic Blood Culture - Preliminary Gram Positive Cocci Resulted 12/10/16 13:10 Urine Catheterized Urine Urine Culture - Preliminary NO GROWTH IN 24 HOURS. Resulted Result Diagram: 12/11/16 0900 12/11/16 0900 Imaging Last Impressions Gall Bladder Ultrasound 12/10/16 1504 Signed Impressions: Service Date/Time: Saturday, December 10, 2016 15:21 - CONCLUSION: 1. The liver appears prominent and heterogeneous with lobular contours which could indicate underlying cirrhosis. 2. Apparent mild gallbladder wall thickening no evidence of cholelithiasis. 3. The common bile duct is at the upper limits of normal in size. Sergio Haro MD Chest X-Ray 12/10/16 1256 Signed Impressions: Service Date/Time: Saturday, December 10, 2016 13:18 - CONCLUSION: 1. Mild pulmonary vascular congestion. 2. Marked cardiomegaly. Lazaro Abebe MD Breast Ultrasound 12/10/16 0000 Signed Impressions: Service Date/Time: Saturday, December 10, 2016 13:43 - CONCLUSION: Ill- defined hypoechoic area below the nipple with surrounding edema. The finding is nonspecific and could represent hemorrhage, fluid or infection. Sergio Haro MD Assessment and Plan Assessment and Plan High grade GPC bacteremia and L chest edema aw pacer - probable pacer infection/endocarditis High grade PCN allergy: hives Recs: cont vancomycin 2 D echo u/s of the pacer BORIS if negative 2 D echo fu blood clx Discussed Condition With pt and her family at b/s Darleen Tamayo MD Dec 11, 2016 17:26
[2016-12-11] MEDS ORDERED: VANCOMYCIN INJ 1,250 MG in SODIUM CHLOR 0.9% 250 ML INJ 250 ML IV SCH (18:00)
[2016-12-12] VITALS (8 sets, daily range): BP systolic 90–113; BP diastolic 53–61; PULSE 68–95; RESP 16–18; TEMP 97.3–98.1; O2SAT 90–96
[2016-12-12] MEDS: CEFEPIME INJ 2,000 MG in SODIUM CHLORIDE 0.9% INJ 100 ML IV SCH ×2 (03:28→10:41)
[2016-12-12] MEDS: SODIUM CHLOR 0.9% 1000 ML INJ 1,000 ML IV SCH (06:19)
[2016-12-12] MEDS: SODIUM CHLORIDE 0.9% FLUSH 10 ML FLUSH IV FLUSH SCH ×2 (09:00→22:07)
[2016-12-12 09:17] LABS: AUTOMATED NEUTROPHIL # 11.3 TH/MM3 (1.8-7.7); BASOPHIL # 0.1 TH/MM3 (0-0.2); BASOPHIL % 0.7 % (0.0-2.0); EOSINOPHIL # 0.1 TH/MM3 (0-0.4); EOSINOPHIL % 0.9 % (0.0-4.0); HEMATOCRIT 29.9 % (35.0-46.0); HEMO FLAGS DIFF FINAL; LYMPH % 4.6 % (9.0-44.0); LYMPHOCYTE # 0.6 TH/MM3 (1.0-4.8); MEAN CELL VOLUME 70.6 FL (80.0-100.0); MEAN CORPUSCULAR HEMOGLOBIN 21.1 PG (27.0-34.0); MONO % 8.8 % (0.0-8.0); PLATELET COUNT 293 TH/MM3 (150-450); RED BLOOD COUNT 4.23 MIL/MM3 (4.00-5.30); RED CELL DISTRIBUTION WIDTH 22.9 % (11.6-17.2); WHITE BLOOD COUNT 13.3 TH/MM3 (4.0-11.0)
[2016-12-12 09:22] LABS: MEAN CORPUSCULAR HGB CONC 29.9 % (32.0-36.0)
[2016-12-12 10:08] LABS: BICARBONATE 23.3 MEQ/L (21.0-32.0); POTASSIUM 3.4 MEQ/L (3.5-5.1)
[2016-12-12] MEDS: WARFARIN SOD 4 MG TAB PO SCH (10:39)
--- NOTE | 2016-12-12 10:39 | ECHRPT ---
Indication: vegetations CONCLUSIONS Poor echocardiographic windows Normal LV dimensions Normal LV systolic dysfunction estimated EF 60% There is moderate severe tricuspid regurgitation. There an echogenic linear structure in the RV please correlate clinically Vegetation cannot be excluded The estimated pulmonary arterial pressure is 33 mmHg. BP: 103 / 59 HR: 95 Rhythm: Other MEASUREMENTS (Male / Female) Normal Values Technical Quality:Good DOPPLER TR Peak Velocity 240.0 cm/s TR Peak Gradient 23.0 mmHg PV Peak Velocity 81.4 cm/s PV Peak Gradient 2.7 mmHg FINDINGS LEFT VENTRICLE Normal left ventricular size and wall thickness. The left ventricular systolic function is normal wi th an estimated ejection fraction in the range of 60-65%. Left ventricular diastolic function parameters a re normal. RIGHT VENTRICLE Normal right ventricular size and systolic function. LEFT ATRIUM The left atrial size is normal. RIGHT ATRIUM The right atrial size is normal. ATRIAL SEPTUM Normal atrial septal thickness without atrial level shunting by limited color doppler interrogation. AORTA The aortic root and proximal ascending aorta are normal in size on limited imaging. MITRAL VALVE Structurally normal mitral valve. No mitral valve stenosis or regurgitation. AORTIC VALVE Trileaflet aortic valve. No aortic valve stenosis or regurgitation. TRICUSPID VALVE There is moderate tricuspid regurgitation. The estimated pulmonary arterial pressure is 33 mmHg. PULMONARY VALVE The pulmonary valve is not well visualized. VESSELS The inferior vena cava is normal in size. PERICARDIUM No pericardial effusion. Wayne Moise MD (Electronically Signed) Final Date:12 December 2016 10:39
[2016-12-12] MEDS: DOCUSATE SODIUM 50 MG/SENNA 8.6 MG TAB PO SCH ×2 (10:40→21:00)
[2016-12-12] MEDS: amLODIPine BESYLATE 5 MG TAB PO SCH (10:40)
[2016-12-12] MEDS: AMIODARONE 200 MG TAB PO SCH (10:40)
[2016-12-12] MEDS: METOPROLOL SUCCINATE 50 MG EXTENDED RELEASE TAB PO SCH (10:40)
--- NOTE | 2016-12-12 10:55 | HHI.PR ---
Subjective Remarks Follow-up for probable AICD related infection, endocarditis. Patient is currently doing well. Denies any fever or chills. Objective Vitals Vital Signs Date Time Temp Pulse Resp B/P (MAP) Pulse Ox O2 Delivery O2 Flow Rate FiO2 12/12/16 08:00 97.7 86 18 102/61 (75) 92 12/12/16 04:00 97.6 95 18 113/54 (73) 94 12/12/16 00:00 97.5 91 18 103/59 (74) 94 12/11/16 22:41 Nasal Cannula 2.00 12/11/16 22:03 Nasal Cannula 2.00 12/11/16 20:00 98.1 95 21 94/63 (73) 96 12/11/16 16:00 97.5 94 18 93/51 (65) 95 12/11/16 12:00 97.4 89 18 90/58 (69) 90 I/O 12/11/16 12/11/16 12/11/16 12/12/16 12/12/16 12/12/16 07:00 15:00 23:00 07:00 15:00 23:00 Intake Total 1220 ml 982.5 ml 1620 ml Output Total 750 ml Balance 1220 ml 982.5 ml 870 ml Intake Oral 120 ml 720 ml 520 ml IV Total 1100 ml 262.5 ml 1100 ml Output Urine Total 750 ml # Voids 2 3 # Bowel Movements 2 3 1 Result Diagram: 12/12/16 0836 12/12/16 0836 Imaging Last Impressions Gall Bladder Ultrasound 12/10/16 1504 Signed Impressions: Service Date/Time: Saturday, December 10, 2016 15:21 - CONCLUSION: 1. The liver appears prominent and heterogeneous with lobular contours which could indicate underlying cirrhosis. 2. Apparent mild gallbladder wall thickening no evidence of cholelithiasis. 3. The common bile duct is at the upper limits of normal in size. Sergio Haro MD Chest X-Ray 12/10/16 1256 Signed Impressions: Service Date/Time: Saturday, December 10, 2016 13:18 - CONCLUSION: 1. Mild pulmonary vascular congestion. 2. Marked cardiomegaly. Lazaro Abebe MD Breast Ultrasound 12/10/16 0000 Signed Impressions: Service Date/Time: Saturday, December 10, 2016 13:43 - CONCLUSION: Ill- defined hypoechoic area below the nipple with surrounding edema. The finding is nonspecific and could represent hemorrhage, fluid or infection. Sergio Haro MD Objective Remarks GENERAL: Alert, NAD. SKIN: Warm and dry. Large indurated area over left breast. HEAD: Normocephalic. EYES: No scleral icterus. No injection or drainage. NECK: Supple, trachea midline. No JVD or lymphadenopathy. CARDIOVASCULAR: Regular rate and rhythm without murmurs, gallops, or rubs. RESPIRATORY: Breath sounds equal bilaterally. No accessory muscle use. GASTROINTESTINAL: Abdomen soft, non-tender, nondistended. MUSCULOSKELETAL: No cyanosis, or edema. BACK: Nontender without obvious deformity. No CVA tenderness. Procedures Transthoracic echocardiogram 12/12/2016 Poor echocardiographic windows Normal LV dimensions Normal LV systolic dysfunction estimated EF 60% There is moderate severe tricuspid regurgitation. There an echogenic linear structure in the RV please correlate clinically Vegetation cannot be excluded The estimated pulmonary arterial pressure is 33 mmHg. A/P Problem List: (1) Severe sepsis ICD Code: A41.9 - Sepsis, unspecified organism; R65.20 - Severe sepsis without septic shock (2) Cellulitis of left breast ICD Code: N61.0 - Mastitis without abscess (3) HARVEY (acute kidney injury) ICD Code: N17.9 - Acute kidney failure, unspecified (4) Hypokalemia ICD Code: E87.6 - Hypokalemia Status: Acute Assessment and Plan Ms. Dailey is a 71-year-old female with a history of hypertension, hyperlipidemia, CAD, CHF, diabetes mellitus who presented to the emergency department today for an evaluation of her altered mental status. Daughters noted that patient was easily agitated and not herself since yesterday 12/09/2016. Patient was evaluated in the emergency department on 2016 for left breast swelling and pain. Patient was discharged with clindamycin and Tylenol 3 in the previous visit. On arrival to the patient has leukocytosis, fever, lactic acid 3.5. She also was found to have acute kidney injury. - Severe sepsis - Probable AICD-related infection - Probable endocarditis - GPC bacteremia - Patient received ibuprofen 800 mg, vancomycin 1000 mg, cefepime 2 g in the emergency department. - Continue Cefepime 2g Q8hrs and Vancomycin. Pt is allergic to PCN. - D/C fluids. - Chest x-ray - image reviewed by me shows AICD as well as cardiomegaly and bilateral mild pulmonary edema. - Left breast ultrasound and gallbladder ultrasound reports reviewed. Left breast finding is concerning for hemorrhage, fluid or infection. - Infectious disease following. - We consulted cardiology today for BORIS since TTE was not conclusive. Discussed with cardiology. BORIS scheduled for this afternoon. - Acute kidney injury - Baseline creatinine 0.99 on 11/28/2016. Creatinine on admission 1.49 --> 2.32 --> 2.69. - Worsening renal function maybe related to Vancomycin. - Hypertension - CAD status post previous stent placements. - Ischemic cardiomyopathy - status post AICD placement about 2 years ago. - Systolic chronic congestive heart failure - Ejection fraction in 2014 was 10-15%. - Continue amlodipine 5 mg with holding parameters. - Hold HUMBLE inhibitor for now. - Continue metoprolol succinate 50 mg daily with holding parameters. - Hold diuretics. - History of DVT - Currently on Warfarin. INR 1.6. We will continue Warfarin. - Diabetes - Blood glucose has been well controlled without any medications. We will check Blood glucose Qshift. If need, we will use sliding scale insulin. Full code. Warfarin. PT/INR in the AM. Chayo Anthony DO Dec 12, 2016 10:55 am
--- NOTE | 2016-12-12 14:31 | MB ---
cc: MIR DONNELLY DATE OF CONSULTATION: 12/12/2016 1946 REASON FOR CONSULTATION Sepsis, for BORIS evaluation and of endocarditis. HISTORY OF PRESENT ILLNESS 71-year-old female with past medical history significant for diabetes, hypertension, CAD, heart failure, DVT on warfarin and AICD placement, who was brought into the emergency department due to altered mental status and also left -sided breast pain and swelling on the pacemaker site. On arrival to the emergency department the temperature was 101.9. She had tachypnea and tachycardia and hypoxic, found to have leukocytosis. Blood cultures were positive for gram-positive cocci in pairs and clusters in 4 out of 4 bottles. She was started on vancomycin. Transthoracic echocardiogram could not exclude a vegetation and thus, cardiology has been consulted for transesophageal echocardiogram. REVIEW OF SYSTEMS Negative except for what is mentioned in HPI. PAST MEDICAL HISTORY 1. Diabetes mellitus. 2. Hypertension. 3. Systolic heart failure, status post AICD. 4. Coronary artery disease status post PCI. PAST SURGICAL HISTORY 1. Right breast lumpectomy. 2. Hysterectomy. 3. Appendectomy. FAMILY HISTORY Noncontributory. SOCIAL HISTORY Is a smoker. Denies any illicit drug use or alcohol abuse. MEDICATION Home medications reviewed. PHYSICAL EXAMINATION VITAL SIGNS: Temperature 98.1, respiratory rate 18, heart rate 76, blood pressure 90/53, O2 sat 90% on room air. GENERAL: Awake, alert, oriented x 3, in no acute distress. NECK: No JVD. No carotid bruits. HEART: Regular rate and rhythm. No murmurs, rubs or gallops. LUNGS: Clear to auscultation bilaterally. No rhonchi, no wheezes or rales. ABDOMEN: Benign. EXTREMITIES: No cyanosis or edema. There is varicose veins in bilateral legs, diminished pulses throughout. DATA CBC WBC 13.3, trending down from 31, hemoglobin 8.9, hematocrit 29, platelet count 293, INR 1.6. Chemistries sodium 133, potassium 3.4, BUN 32, creatinine 2.69, trending up from 1.49. Blood cultures positive for gram-positive cocci. Echocardiogram shows normal LV systolic function with estimated ejection fraction of 60%. There is an echogenic linear structure in the right ventricle consistent with a pacemaker, however, vegetation cannot be excluded. ASSESSMENT/PLAN 71-year-old female with known coronary artery disease and ischemic cardiomyopathy, status post AICD that presents with sepsis to the hospital. She has been responding to antibiotic therapy. Echocardiogram done today could not exclude vegetation in the pacemaker leads and thus, cardiology has been consulted for BORIS. I agree with BORIS given the fact that the patient has an AICD , as well as there is question of induration in the AICD pocket in the setting of ongoing sepsis. Risks and benefits of BORIS including but not limited to esophageal trauma and bleeding, perforation and have been explained to the patient. The patient understands the risks and is willing to proceed. RECOMMENDATIONS Keep n.p.o. for BORIS today. MD CONNOR Boyd/SLY /1:58 PM /2:09 PM MTDOsiel
--- NOTE | 2016-12-12 19:37 | HHI.IDPN ---
Subjective Subjective Remarks Afebrile doing OK, except noted to have increasing cretinine 2 D echo suspicious for pacer lead vegetaion Antibiotics cefepime vancomycin Allergies: Coded Allergies: penicillin G (Unverified Allergy, Severe, rash, 11/28/16) benazepril (Unverified Allergy, Mild, 11/28/16) HUMBLE inhibitor angioedema, swelling of the face lips and anterior tongue captopril (Unverified Allergy, Mild, 11/28/16) HUMBLE inhibitor angioedema, swelling of the face lips and anterior tongue enalaprilat (Unverified Allergy, Mild, 11/28/16) HUMBLE inhibitor angioedema, swelling of the face lips and anterior tongue fosinopril (Unverified Allergy, Mild, 11/28/16) HUMBLE inhibitor angioedema, swelling of the face lips and anterior tongue lisinopril (Unverified Allergy, Mild, 11/28/16) HUMBLE inhibitor angioedema, swelling of the face lips and anterior tongue quinapril (Unverified Allergy, Mild, 11/28/16) HUMBLE inhibitor angioedema, swelling of the face lips and anterior tongue Uncoded Allergies: NON COMPATIBLE PACEMAKER (Adverse Reaction, Severe, MRI PRECAUTION / PACEMAKER, 11/03/14) MRI PRECAUTION. PACEMAKER Objective . Vital Signs Date Time Temp Pulse Resp B/P (MAP) Pulse Ox O2 Delivery O2 Flow Rate FiO2 12/12/16 16:00 97.5 68 18 100/57 (71) 96 12/12/16 12:00 98.1 76 18 90/53 (65) 90 12/12/16 09:00 Room Air 12/12/16 08:25 92 Nasal Cannula 2.00 12/12/16 08:00 97.7 86 18 102/61 (75) 92 12/12/16 04:00 97.6 95 18 113/54 (73) 94 12/12/16 00:00 97.5 91 18 103/59 (74) 94 12/11/16 22:41 Nasal Cannula 2.00 12/11/16 22:03 Nasal Cannula 2.00 12/11/16 20:00 98.1 95 21 94/63 (73) 96 12/12/16 12/12/16 12/13/16 15:00 23:00 07:00 Intake Total 480 ml Balance 480 ml Intake Oral 480 ml # Voids 4 # Bowel Movements 4 . Laboratory Tests Test 12/11/16 09:00 12/12/16 08:36 White Blood Count 22.3 TH/MM3 13.3 TH/MM3 Red Blood Count 4.43 MIL/MM3 4.23 MIL/MM3 Hemoglobin 9.5 GM/DL 8.9 GM/DL Hematocrit 31.8 % 29.9 % Mean Corpuscular Volume 71.9 FL 70.6 FL Mean Corpuscular Hemoglobin 21.5 PG 21.1 PG Mean Corpuscular Hemoglobin Concent 29.8 % 29.9 % Red Cell Distribution Width 23.5 % 22.9 % Platelet Count 298 TH/MM3 293 TH/MM3 Mean Platelet Volume 7.4 FL 7.2 FL Neutrophils (%) (Auto) 92.0 % 85.0 % Lymphocytes (%) (Auto) 1.5 % 4.6 % Monocytes (%) (Auto) 5.8 % 8.8 % Eosinophils (%) (Auto) 0.3 % 0.9 % Basophils (%) (Auto) 0.4 % 0.7 % Neutrophils # (Auto) 20.5 TH/MM3 11.3 TH/MM3 Lymphocytes # (Auto) 0.3 TH/MM3 0.6 TH/MM3 Monocytes # (Auto) 1.3 TH/MM3 1.2 TH/MM3 Eosinophils # (Auto) 0.1 TH/MM3 0.1 TH/MM3 Basophils # (Auto) 0.1 TH/MM3 0.1 TH/MM3 CBC Comment DIFF FINAL DIFF FINAL Differential Comment Laboratory Tests Test 12/11/16 09:00 12/12/16 08:36 Blood Urea Nitrogen 21 MG/DL 32 MG/DL Creatinine 2.32 MG/DL 2.69 MG/DL Random Glucose 60 MG/DL 81 MG/DL Total Protein 7.7 GM/DL Albumin 2.4 GM/DL Calcium Level 7.9 MG/DL 8.2 MG/DL Alkaline Phosphatase 99 U/L Aspartate Amino Transf (AST/SGOT) 84 U/L Alanine Aminotransferase (ALT/SGPT) 22 U/L Total Bilirubin 5.2 MG/DL Sodium Level 136 MEQ/L 133 MEQ/L Potassium Level 3.4 MEQ/L 3.4 MEQ/L Chloride Level 99 MEQ/L 99 MEQ/L Carbon Dioxide Level 27.6 MEQ/L 23.3 MEQ/L Anion Gap 9 MEQ/L 11 MEQ/L Estimat Glomerular Filtration Rate 25 ML/MIN 21 ML/MIN Microbiology Date/Time Source Procedure Growth Status 12/11/16 08:42 Blood Peripheral Aerobic Blood Culture Pending Received 12/11/16 08:42 Blood Peripheral Anaerobic Blood Culture Pending Received 12/11/16 08:36 Blood Peripheral Aerobic Blood Culture Pending Received 12/11/16 08:36 Blood Peripheral Anaerobic Blood Culture Pending Received 12/10/16 13:10 Blood Peripheral Aerobic Blood Culture - Preliminary Staphylococcus Aureus Resulted 12/10/16 13:10 Anaerobic Blood Culture - Preliminary Staphylococcus Aureus Resulted 12/10/16 13:05 Blood Peripheral Aerobic Blood Culture - Preliminary Staphylococcus Aureus Resulted 12/10/16 13:05 Anaerobic Blood Culture - Preliminary Staph Sp Coagulase Positive Resulted 12/10/16 13:10 Urine Catheterized Urine Urine Culture - Final NO GROWTH IN 48 HOURS. Complete Imaging Last Impressions Gall Bladder Ultrasound 12/10/16 1504 Signed Impressions: Service Date/Time: Saturday, December 10, 2016 15:21 - CONCLUSION: 1. The liver appears prominent and heterogeneous with lobular contours which could indicate underlying cirrhosis. 2. Apparent mild gallbladder wall thickening no evidence of cholelithiasis. 3. The common bile duct is at the upper limits of normal in size. Sergio Haro MD Chest X-Ray 12/10/16 1256 Signed Impressions: Service Date/Time: Saturday, December 10, 2016 13:18 - CONCLUSION: 1. Mild pulmonary vascular congestion. 2. Marked cardiomegaly. Lazaro Abebe MD Breast Ultrasound 12/10/16 0000 Signed Impressions: Service Date/Time: Saturday, December 10, 2016 13:43 - CONCLUSION: Ill- defined hypoechoic area below the nipple with surrounding edema. The finding is nonspecific and could represent hemorrhage, fluid or infection. Sergio Haro MD Physical Exam CONSTITUTIONAL/GENERAL: This is an adequately nourished patient, in no apparent distress. TUBES/LINES/DRAINS: SKIN: No jaundice, rashes, or lesions. Ecchymoses on upper extremities. No wounds seen anteriorly. Skin temperature appropriate. Not diaphoretic. Breasts: L breast is mucjh less edemantous, with ill defined fluctuace area and AICD palpable in L UOQ, not tender EYES: Pupils equal and round and reactive. Extraocular motions intact. No scleral icterus. No injection or drainage. Fundi not examined. CARDIOVASCULAR: Regular rate and rhythm without murmurs, gallops, or rubs. No JVD. Peripheral pulses symmetric. AICD palpable in L UOQ of the breast, no tenderness appreciated RESPIRATORY/CHEST: Symmetric, unlabored respirations. Clear to auscultation. Breath sounds equal bilaterally. No wheezes, rales, or rhonchi. GASTROINTESTINAL: Abdomen soft, non-tender, nondistended. No hepato-splenomegaly , or palpable masses. No guarding. Bowel sounds present. GENITOURINARY: Without palpable bladder distension. MUSCULOSKELETAL: Extremities without clubbing, cyanosis, or edema. BLE with prominent varices LYMPHATICS: No palpable cervical or supraclavicular adenopathy. NEUROLOGICAL: Awake and alert. Motor and sensory grossly within normal limits. Follows commands. Clear speech . Moves all extremities. PSYCHIATRIC: calm and cooperative Assessment & Plan Remarks High grade MSSA bacteremia and L chest edema aw pacer - probable pacer infection/endocarditis ? pacer lead vegetation on the wire High grade PCN allergy: hives, to[place]arting [place] cefepime New issu: HARVEY Recs: dc vancomycin, cefepime start cefazoline, renally adjusted consult Dr Feliciano for AICD extraction BORIS repeat blood clx urine eos Discussed Condition With pt and her family at b/s Darleen Tamayo MD Dec 12, 2016 19:36
[2016-12-13] VITALS: BP 101/50; PULSE 70; RESP 16; TEMP 97.3; O2SAT 95
[2016-12-13] MEDS ORDERED: PHARMACY ORDERED LAB ONE (05:45)
[2016-12-13 07:01] VITALS: BP 102/57; PULSE 69; RESP 18; TEMP 97.4; O2SAT 94
[2016-12-13] MEDS ORDERED: DEXTROSE 50% IN WATER 50 ML SYRINGE ONE ×2 (08:08→11:24)
--- NOTE | 2016-12-13 08:33 | PD.CARD.PN ---
Subjective Subjective Remarks no complaints Objective Vital Signs / I&O Vital Signs Date Time Temp Pulse Resp B/P (MAP) Pulse Ox O2 Delivery O2 Flow Rate FiO2 12/13/16 07:01 97.4 69 18 102/57 (72) 94 12/13/16 00:00 97.3 70 16 101/50 (67) 95 12/12/16 21:50 Room Air 12/12/16 20:59 95 21 12/12/16 20:00 97.3 69 16 99/60 (73) 95 12/12/16 16:00 97.5 68 18 100/57 (71) 96 12/12/16 12:00 98.1 76 18 90/53 (65) 90 12/12/16 09:00 Room Air I/O 12/12/16 12/12/16 12/12/16 12/13/16 12/13/16 12/13/16 07:00 15:00 23:00 07:00 15:00 23:00 Intake Total 1620 ml 480 ml 0 ml Output Total 750 ml Balance 870 ml 480 ml 0 ml Intake Oral 520 ml 480 ml 0 ml IV Total 1100 ml Output Urine Total 750 ml # Voids 4 2 # Bowel Movements 1 4 0 Physical Exam GENERAL: Well-nourished, well-developed patient. SKIN: Warm and dry. HEAD: Normocephalic. EYES: No scleral icterus. No injection or drainage. NECK: Supple, trachea midline. No JVD or lymphadenopathy. CARDIOVASCULAR: Regular rate and rhythm without murmurs, gallops, or rubs. RESPIRATORY: Breath sounds equal bilaterally. No accessory muscle use. GASTROINTESTINAL: Abdomen soft, non-tender, nondistended. EXTREMITIES: No cyanosis, or edema. NEUROLOGICAL: Awake, alert, and oriented x 3. Non-focal. Laboratory Laboratory Tests Test 12/12/16 08:36 White Blood Count 13.3 TH/MM3 Red Blood Count 4.23 MIL/MM3 Hemoglobin 8.9 GM/DL Hematocrit 29.9 % Mean Corpuscular Volume 70.6 FL Mean Corpuscular Hemoglobin 21.1 PG Mean Corpuscular Hemoglobin Concent 29.9 % Red Cell Distribution Width 22.9 % Platelet Count 293 TH/MM3 Mean Platelet Volume 7.2 FL Neutrophils (%) (Auto) 85.0 % Lymphocytes (%) (Auto) 4.6 % Monocytes (%) (Auto) 8.8 % Eosinophils (%) (Auto) 0.9 % Basophils (%) (Auto) 0.7 % Neutrophils # (Auto) 11.3 TH/MM3 Lymphocytes # (Auto) 0.6 TH/MM3 Monocytes # (Auto) 1.2 TH/MM3 Eosinophils # (Auto) 0.1 TH/MM3 Basophils # (Auto) 0.1 TH/MM3 CBC Comment DIFF FINAL Differential Comment Blood Urea Nitrogen 32 MG/DL Creatinine 2.69 MG/DL Random Glucose 81 MG/DL Calcium Level 8.2 MG/DL Sodium Level 133 MEQ/L Potassium Level 3.4 MEQ/L Chloride Level 99 MEQ/L Carbon Dioxide Level 23.3 MEQ/L Anion Gap 11 MEQ/L Estimat Glomerular Filtration Rate 21 ML/MIN Random Vancomycin Level 23.8 COMMENT Assessment and Plan Problem List: (1) Severe sepsis ICD Codes: A41.9 - Sepsis, unspecified organism; R65.20 - Severe sepsis without septic shock Plan: Patient refused BORIS. Continue medical therapy per primary team Wayne Moise MD Dec 13, 2016 08:33
[2016-12-13] MEDS: DOCUSATE SODIUM 50 MG/SENNA 8.6 MG TAB PO SCH ×2 (09:00→21:00)
[2016-12-13] MEDS: amLODIPine BESYLATE 5 MG TAB PO SCH (10:20)
[2016-12-13] MEDS: AMIODARONE 200 MG TAB PO SCH (10:21)
[2016-12-13] MEDS: WARFARIN SOD 4 MG TAB PO SCH (10:21)
[2016-12-13] MEDS: SODIUM CHLORIDE 0.9% FLUSH 10 ML FLUSH IV FLUSH SCH ×2 (10:21→23:49)
[2016-12-13] MEDS: METOPROLOL SUCCINATE 50 MG EXTENDED RELEASE TAB PO SCH (10:21)
[2016-12-13] MEDS ORDERED: PROPOFOL 200 MG/20 ML AMP IV ONE (11:28)
[2016-12-13 12:00] VITALS: BP 115/62; PULSE 77; RESP 18; TEMP 97; O2SAT 94
[2016-12-13] MEDS ORDERED: CEFEPIME INJ 2,000 MG in SODIUM CHLORIDE 0.9% INJ 100 ML IV SCH (14:00)
--- NOTE | 2016-12-13 15:14 | HHI.PR ---
Addendum to Inpatient Note Additional Information Pt refused BORIS More + blood clx Pt needs pacemaker extraction awaiting Dr Feliciano's evaluation creartnine is worse cont cefazoline Darleen Tamayo MD Dec 13, 2016 15:14
[2016-12-13 16:02] VITALS: BP 135/56; PULSE 76; RESP 18; TEMP 97.8; O2SAT 98
--- NOTE | 2016-12-13 16:05 | HHI.PR ---
Subjective Remarks Follow-up for probable AICD related infection, endocarditis and MSSA bacteremia. Patient appears to be much more lethargic today. She is sitting at the nurse's station. She is awake but wants to just rest. No fever or chills. Objective Vitals Vital Signs Date Time Temp Pulse Resp B/P (MAP) Pulse Ox O2 Delivery O2 Flow Rate FiO2 12/13/16 12:00 97.0 77 18 115/62 (79) 94 12/13/16 08:00 Room Air 12/13/16 07:01 97.4 69 18 102/57 (72) 94 12/13/16 00:00 97.3 70 16 101/50 (67) 95 12/12/16 21:50 Room Air 12/12/16 20:59 95 21 12/12/16 20:00 97.3 69 16 99/60 (73) 95 12/12/16 16:00 97.5 68 18 100/57 (71) 96 I/O 12/12/16 12/12/16 12/12/16 12/13/16 12/13/16 12/13/16 07:00 15:00 23:00 07:00 15:00 23:00 Intake Total 1620 ml 480 ml 0 ml Output Total 750 ml Balance 870 ml 480 ml 0 ml Intake Oral 520 ml 480 ml 0 ml IV Total 1100 ml Output Urine Total 750 ml # Voids 4 2 # Bowel Movements 1 4 0 Result Diagram: 12/12/16 0836 12/12/16 0836 Imaging Last Impressions Gall Bladder Ultrasound 12/10/16 1504 Signed Impressions: Service Date/Time: Saturday, December 10, 2016 15:21 - CONCLUSION: 1. The liver appears prominent and heterogeneous with lobular contours which could indicate underlying cirrhosis. 2. Apparent mild gallbladder wall thickening no evidence of cholelithiasis. 3. The common bile duct is at the upper limits of normal in size. Sergio Haro MD Chest X-Ray 12/10/16 1256 Signed Impressions: Service Date/Time: Saturday, December 10, 2016 13:18 - CONCLUSION: 1. Mild pulmonary vascular congestion. 2. Marked cardiomegaly. Lazaro Abebe MD Breast Ultrasound 12/10/16 0000 Signed Impressions: Service Date/Time: Saturday, December 10, 2016 13:43 - CONCLUSION: Ill- defined hypoechoic area below the nipple with surrounding edema. The finding is nonspecific and could represent hemorrhage, fluid or infection. Sergio Haro MD Objective Remarks GENERAL: Drowsy, wakes up on verbal commands, wants to just rest. SKIN: Warm and dry. Large indurated area over left breast. HEAD: Normocephalic. EYES: No scleral icterus. No injection or drainage. NECK: Supple, trachea midline. No JVD or lymphadenopathy. CARDIOVASCULAR: Regular rate and rhythm without murmurs, gallops, or rubs. RESPIRATORY: Breath sounds equal bilaterally. No accessory muscle use. GASTROINTESTINAL: Abdomen soft, non-tender, nondistended. MUSCULOSKELETAL: No cyanosis, or edema. BACK: Nontender without obvious deformity. No CVA tenderness. Procedures Transthoracic echocardiogram 12/12/2016 Poor echocardiographic windows Normal LV dimensions Normal LV systolic dysfunction estimated EF 60% There is moderate severe tricuspid regurgitation. There an echogenic linear structure in the RV please correlate clinically Vegetation cannot be excluded The estimated pulmonary arterial pressure is 33 mmHg. A/P Problem List: (1) Severe sepsis ICD Code: A41.9 - Sepsis, unspecified organism; R65.20 - Severe sepsis without septic shock (2) Cellulitis of left breast ICD Code: N61.0 - Mastitis without abscess (3) HARVEY (acute kidney injury) ICD Code: N17.9 - Acute kidney failure, unspecified (4) Hypokalemia ICD Code: E87.6 - Hypokalemia Status: Acute Assessment and Plan Ms. Dailey is a 71-year-old female with a history of hypertension, hyperlipidemia, CAD, CHF, diabetes mellitus who presented to the emergency department today for an evaluation of her altered mental status. Daughters noted that patient was easily agitated and not herself since yesterday 12/09/2016. Patient was evaluated in the emergency department on 2016 for left breast swelling and pain. Patient was discharged with clindamycin and Tylenol 3 in the previous visit. On arrival to the patient has leukocytosis, fever, lactic acid 3.5. She also was found to have acute kidney injury. 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 Pt is allergic to PCN. Currently on Cefazolin 1g Q12hrs. - Left breast ultrasound and gallbladder ultrasound reports reviewed. Left breast finding is concerning for hemorrhage, fluid or infection. - Infectious disease following. - Cardiology was consulted for BORIS. However, per discussion with distilling department supervisor , patient did not want to undergo BORIS, she refused and was not cooperative. - EP has been consulted for AICD extraction. - WBC improved from 31.6K ==> 13.3K. - Acute kidney injury - Baseline creatinine 0.99 on 11/28/2016. Creatinine on admission 1.49 --> 2.32 --> 2.69. - Worsening renal function maybe related to Vancomycin. - Hypertension - CAD status post previous stent placements. - Ischemic cardiomyopathy - status post AICD placement about 2 years ago. - Systolic chronic congestive heart failure - Ejection fraction in 2014 was 10-15%. - Continue amlodipine 5 mg with holding parameters. - Hold HUMBLE inhibitor for now. - Continue metoprolol succinate 50 mg daily with holding parameters. - Hold diuretics. - History of DVT - Currently on Warfarin. INR 1.6. We will continue Warfarin. INR in the AM. - Diabetes - Blood glucose has been well controlled without any medications. We will check Blood glucose Qshift. If need, we will use sliding scale insulin. Full code. Warfarin. Chayo Anthony DO Dec 13, 2016 4:05 pm
[2016-12-13] MEDS: DEXTROSE 5%-LACTATED RING INJ 1,000 ML IV SCH (17:00)
--- NOTE | 2016-12-13 17:10 | HHI.IDPN ---
Subjective Subjective Remarks clearly worse Per famuily member, confused does not recognise family, not knowing where she is today More + blood clx afebrile Antibiotics cefepime vancomycin Allergies: Coded Allergies: penicillin G (Unverified Allergy, Severe, rash, 11/28/16) benazepril (Unverified Allergy, Mild, 11/28/16) HUMBLE inhibitor angioedema, swelling of the face lips and anterior tongue captopril (Unverified Allergy, Mild, 11/28/16) HUMBLE inhibitor angioedema, swelling of the face lips and anterior tongue enalaprilat (Unverified Allergy, Mild, 11/28/16) HUMBLE inhibitor angioedema, swelling of the face lips and anterior tongue fosinopril (Unverified Allergy, Mild, 11/28/16) HUMBLE inhibitor angioedema, swelling of the face lips and anterior tongue lisinopril (Unverified Allergy, Mild, 11/28/16) HUMBLE inhibitor angioedema, swelling of the face lips and anterior tongue quinapril (Unverified Allergy, Mild, 11/28/16) HUMBLE inhibitor angioedema, swelling of the face lips and anterior tongue Uncoded Allergies: NON COMPATIBLE PACEMAKER (Adverse Reaction, Severe, MRI PRECAUTION / PACEMAKER, 11/03/14) MRI PRECAUTION. PACEMAKER Objective . Vital Signs Date Time Temp Pulse Resp B/P (MAP) Pulse Ox O2 Delivery O2 Flow Rate FiO2 12/13/16 12:00 97.0 77 18 115/62 (79) 94 12/13/16 08:00 Room Air 12/13/16 07:01 97.4 69 18 102/57 (72) 94 12/13/16 00:00 97.3 70 16 101/50 (67) 95 12/12/16 21:50 Room Air 12/12/16 20:59 95 21 12/12/16 20:00 97.3 69 16 99/60 (73) 95 . Laboratory Tests Test 12/12/16 08:36 White Blood Count 13.3 TH/MM3 Red Blood Count 4.23 MIL/MM3 Hemoglobin 8.9 GM/DL Hematocrit 29.9 % Mean Corpuscular Volume 70.6 FL Mean Corpuscular Hemoglobin 21.1 PG Mean Corpuscular Hemoglobin Concent 29.9 % Red Cell Distribution Width 22.9 % Platelet Count 293 TH/MM3 Mean Platelet Volume 7.2 FL Neutrophils (%) (Auto) 85.0 % Lymphocytes (%) (Auto) 4.6 % Monocytes (%) (Auto) 8.8 % Eosinophils (%) (Auto) 0.9 % Basophils (%) (Auto) 0.7 % Neutrophils # (Auto) 11.3 TH/MM3 Lymphocytes # (Auto) 0.6 TH/MM3 Monocytes # (Auto) 1.2 TH/MM3 Eosinophils # (Auto) 0.1 TH/MM3 Basophils # (Auto) 0.1 TH/MM3 CBC Comment DIFF FINAL Differential Comment Laboratory Tests Test 12/12/16 08:36 Blood Urea Nitrogen 32 MG/DL Creatinine 2.69 MG/DL Random Glucose 81 MG/DL Calcium Level 8.2 MG/DL Sodium Level 133 MEQ/L Potassium Level 3.4 MEQ/L Chloride Level 99 MEQ/L Carbon Dioxide Level 23.3 MEQ/L Anion Gap 11 MEQ/L Estimat Glomerular Filtration Rate 21 ML/MIN Microbiology Date/Time Source Procedure Growth Status 12/11/16 08:42 Blood Peripheral Aerobic Blood Culture - Preliminary Gram Positive Cocci Resulted 12/11/16 08:42 Blood Peripheral Anaerobic Blood Culture - Preliminary NO GROWTH IN 1 DAY Resulted 12/11/16 08:36 Blood Peripheral Aerobic Blood Culture - Preliminary Gram Positive Cocci Resulted 12/11/16 08:36 Blood Peripheral Anaerobic Blood Culture - Preliminary NO GROWTH IN 1 DAY Resulted Imaging Last Impressions Gall Bladder Ultrasound 12/10/16 1504 Signed Impressions: Service Date/Time: Saturday, December 10, 2016 15:21 - CONCLUSION: 1. The liver appears prominent and heterogeneous with lobular contours which could indicate underlying cirrhosis. 2. Apparent mild gallbladder wall thickening no evidence of cholelithiasis. 3. The common bile duct is at the upper limits of normal in size. Sergio Haro MD Chest X-Ray 12/10/16 1256 Signed Impressions: Service Date/Time: Saturday, December 10, 2016 13:18 - CONCLUSION: 1. Mild pulmonary vascular congestion. 2. Marked cardiomegaly. Lazaro Abebe MD Breast Ultrasound 12/10/16 0000 Signed Impressions: Service Date/Time: Saturday, December 10, 2016 13:43 - CONCLUSION: Ill- defined hypoechoic area below the nipple with surrounding edema. The finding is nonspecific and could represent hemorrhage, fluid or infection. Sergio Haro MD Physical Exam CONSTITUTIONAL/GENERAL: This is an adequately nourished patient, in no apparent distress. TUBES/LINES/DRAINS: SKIN: No jaundice, rashes, or lesions. Ecchymoses on upper extremities. No wounds seen anteriorly. Skin temperature appropriate. Not diaphoretic. Breasts: L breast remains edemantous,and tender EYES: Pupils equal and round and reactive. Extraocular motions intact. No scleral icterus. No injection or drainage. Fundi not examined. CARDIOVASCULAR: Regular rate and rhythm without murmurs, gallops, or rubs. No JVD. Peripheral pulses symmetric. AICD palpable in L UOQ of the breast, no tenderness appreciated RESPIRATORY/CHEST: Symmetric, unlabored respirations. Clear to auscultation. Breath sounds equal bilaterally. No wheezes, rales, or rhonchi. GASTROINTESTINAL: Abdomen soft, non-tender, nondistended. No hepato-splenomegaly , or palpable masses. No guarding. Bowel sounds present. GENITOURINARY: Without palpable bladder distension. MUSCULOSKELETAL: Extremities without clubbing, cyanosis, or edema. BLE with prominent varices LYMPHATICS: No palpable cervical or supraclavicular adenopathy. NEUROLOGICAL: Awake and alert. Motor and sensory grossly within normal limits. Follows commands. Clear speech . Moves all extremities. PSYCHIATRIC: calm and cooperative Assessment & Plan Remarks High grade MSSA bacteremia and L chest edema aw pacer - probable pacer infection/endocarditis refused BORIS ? pacer lead vegetation on the wire High grade PCN allergy: hives, to[place]ing [place] cefepime New issu: HARVEY - creatinine worse ? oliguric Pt is getting worse with uncontrolled sepsis sourece (now with ATN and metabolic encephalopathy 2./2 sepsis) Recs: dcont cefazoline, renally adjusted consult Dr Feliciano for AICD extraction repeat blood clx urine eos monitor urine output Discussed Condition With dgtr at b/s Darleen Rios MD Dec 13, 2016 17:10
[2016-12-13 19:35] VITALS: BP 117/53; PULSE 80; RESP 18; TEMP 97.5; O2SAT 100
[2016-12-13 23:45] VITALS: BP 103/58; PULSE 80; RESP 19; TEMP 97.2; O2SAT 93
[2016-12-14 04:11] VITALS: O2SAT 93
[2016-12-14 04:15] VITALS: BP 137/70; PULSE 83; RESP 19; TEMP 98.3; O2SAT 93
[2016-12-14] MEDS: DEXTROSE 5%-LACTATED RING INJ 1,000 ML IV SCH ×2 (04:55→11:00)
[2016-12-14 08:00] VITALS: BP 138/63; PULSE 77; RESP 20; TEMP 97.3; O2SAT 92
[2016-12-14] MEDS: amLODIPine BESYLATE 5 MG TAB PO SCH ×2 (08:07→09:00)
[2016-12-14] MEDS: AMIODARONE 200 MG TAB PO SCH ×2 (08:07→09:00)
[2016-12-14] MEDS: METOPROLOL SUCCINATE 50 MG EXTENDED RELEASE TAB PO SCH ×2 (08:07→09:00)
[2016-12-14] MEDS: DOCUSATE SODIUM 50 MG/SENNA 8.6 MG TAB PO SCH ×3 (08:07→21:00)
[2016-12-14] MEDS: SODIUM CHLORIDE 0.9% FLUSH 10 ML FLUSH IV FLUSH SCH ×2 (08:08→21:00)
[2016-12-14] MEDS: WARFARIN SOD 4 MG TAB PO SCH (09:00)
[2016-12-14 12:00] VITALS: BP 133/76; PULSE 88; RESP 20; TEMP 96.9; O2SAT 93
[2016-12-14 14:17] LABS: INTERNATIONAL NORMALIZED RATIO 1.7 RATIO
[2016-12-14 14:18] LABS: AUTOMATED NEUTROPHIL # 8.7 TH/MM3 (1.8-7.7); BASOPHIL # 0.1 TH/MM3 (0-0.2); BASOPHIL % 0.6 % (0.0-2.0); EOSINOPHIL # 0.1 TH/MM3 (0-0.4); EOSINOPHIL % 0.7 % (0.0-4.0); HEMATOCRIT 33.2 % (35.0-46.0); HEMO FLAGS DIFF FINAL; LYMPH % 5.2 % (9.0-44.0); LYMPHOCYTE # 0.6 TH/MM3 (1.0-4.8); MEAN CELL VOLUME 69.5 FL (80.0-100.0); MEAN CORPUSCULAR HEMOGLOBIN 21.3 PG (27.0-34.0); MEAN CORPUSCULAR HGB CONC 30.7 % (32.0-36.0); MONO % 12.6 % (0.0-8.0); NEUT % 80.9 % (16.0-70.0); PLATELET COUNT 286 TH/MM3 (150-450); RED BLOOD COUNT 4.78 MIL/MM3 (4.00-5.30); RED CELL DISTRIBUTION WIDTH 23.3 % (11.6-17.2); WHITE BLOOD COUNT 10.7 TH/MM3 (4.0-11.0)
[2016-12-14 14:57] LABS: BICARBONATE 23.8 MEQ/L (21.0-32.0); POTASSIUM 3.1 MEQ/L (3.5-5.1)
[2016-12-14 15:07] VITALS: BP 150/63; PULSE 87; RESP 22; TEMP 97.5; O2SAT 92
--- NOTE | 2016-12-14 17:59 | HHI.PR ---
Subjective Remarks Follow-up for probable AICD related infection, endocarditis and MSSA bacteremia. Patient is drowsy, lethargic, does not want to participate with any activities. Afebrile. Objective Vitals Vital Signs Date Time Temp Pulse Resp B/P (MAP) Pulse Ox O2 Delivery O2 Flow Rate FiO2 12/14/16 15:07 97.5 87 22 150/63 (92) 92 12/14/16 12:00 96.9 88 20 133/76 (95) 93 12/14/16 08:00 97.3 77 20 138/63 (88) 92 12/14/16 04:15 98.3 83 19 137/70 (92) 93 12/14/16 04:11 93 12/14/16 04:00 Room Air 12/13/16 23:45 97.2 80 19 103/58 (73) 93 12/13/16 23:10 Room Air 12/13/16 19:35 97.5 80 18 117/53 (74) 100 I/O 12/13/16 12/13/16 12/13/16 12/14/16 12/14/16 12/14/16 07:00 15:00 23:00 07:00 15:00 23:00 Intake Total 0 ml 480 ml 504 ml 350 ml Output Total 350 ml 350 ml Balance 0 ml 480 ml 154 ml 0 ml Intake Oral 0 ml 480 ml 0 ml 350 ml IV Total 504 ml Output Urine Total 350 ml 350 ml # Voids 2 4 # Bowel Movements 0 0 0 0 Result Diagram: 12/14/16 1325 12/14/16 1323 Imaging Last Impressions Gall Bladder Ultrasound 12/10/16 1504 Signed Impressions: Service Date/Time: Saturday, December 10, 2016 15:21 - CONCLUSION: 1. The liver appears prominent and heterogeneous with lobular contours which could indicate underlying cirrhosis. 2. Apparent mild gallbladder wall thickening no evidence of cholelithiasis. 3. The common bile duct is at the upper limits of normal in size. Sergio Haro MD Chest X-Ray 12/10/16 1256 Signed Impressions: Service Date/Time: Saturday, December 10, 2016 13:18 - CONCLUSION: 1. Mild pulmonary vascular congestion. 2. Marked cardiomegaly. Lazaro Abebe MD Breast Ultrasound 12/10/16 0000 Signed Impressions: Service Date/Time: Saturday, December 10, 2016 13:43 - CONCLUSION: Ill- defined hypoechoic area below the nipple with surrounding edema. The finding is nonspecific and could represent hemorrhage, fluid or infection. Sergio Haro MD Objective Remarks GENERAL: Drowsy, wakes up on verbal commands, wants to just rest. SKIN: Warm and dry. Large indurated area over left breast. HEAD: Normocephalic. EYES: No scleral icterus. No injection or drainage. NECK: Supple, trachea midline. No JVD or lymphadenopathy. CARDIOVASCULAR: Regular rate and rhythm without murmurs, gallops, or rubs. RESPIRATORY: Breath sounds equal bilaterally. No accessory muscle use. GASTROINTESTINAL: Abdomen soft, non-tender, nondistended. MUSCULOSKELETAL: No cyanosis, or edema. BACK: Nontender without obvious deformity. No CVA tenderness. Procedures Transthoracic echocardiogram 12/12/2016 Poor echocardiographic windows Normal LV dimensions Normal LV systolic dysfunction estimated EF 60% There is moderate severe tricuspid regurgitation. There an echogenic linear structure in the RV please correlate clinically Vegetation cannot be excluded The estimated pulmonary arterial pressure is 33 mmHg. A/P Problem List: (1) Severe sepsis ICD Code: A41.9 - Sepsis, unspecified organism; R65.20 - Severe sepsis without septic shock (2) Cellulitis of left breast ICD Code: N61.0 - Mastitis without abscess (3) HARVEY (acute kidney injury) ICD Code: N17.9 - Acute kidney failure, unspecified (4) Hypokalemia ICD Code: E87.6 - Hypokalemia Status: Acute Assessment and Plan Ms. Dailey is a 71-year-old female with a history of hypertension, hyperlipidemia, CAD, CHF, diabetes mellitus who presented to the emergency department today for an evaluation of her altered mental status. Daughters noted that patient was easily agitated and not herself since yesterday 12/09/2016. Patient was evaluated in the emergency department on 2016 for left breast swelling and pain. Patient was discharged with clindamycin and Tylenol 3 in the previous visit. On arrival to the patient has leukocytosis, fever, lactic acid 3.5. She also was found to have acute kidney injury. 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 Pt is allergic to PCN. Currently on Cefazolin 1g Q12hrs. - Left breast ultrasound and gallbladder ultrasound reports reviewed. Left breast finding is concerning for hemorrhage, fluid or infection. - Infectious disease following. - Cardiology was consulted for BORIS. However, per discussion with internal audit director , patient did not want to undergo BORIS, she refused and was not cooperative. - EP has been consulted for AICD extraction. - WBC improved from 31.6K ==> 13.3K --> 10.7. - Will d/w Dr. Feliciano on Friday12/16/2016 regarding device extraction. Regardless whether patient has endocarditis or not, if AICD is not extracted, anti-biotics alone may not be enough to eradicate infection. - Acute kidney injury - Baseline creatinine 0.99 on 11/28/2016. Creatinine on admission 1.49 --> 2.32 --> 2.69 --> 2.05. - Worsening renal function maybe related to Vancomycin. Renal function improving. - Hypertension - CAD status post previous stent placements. - Ischemic cardiomyopathy - status post AICD placement about 2 years ago. - Systolic chronic congestive heart failure - Ejection fraction in 2014 was 10-15%. - Continue amlodipine 5 mg with holding parameters. - Hold HUMBLE inhibitor for now. - Continue metoprolol succinate 50 mg daily with holding parameters. - Hold diuretics. - History of DVT - Currently on Warfarin. INR 1.7 Full code. Warfarin. Chayo Anthony DO Dec 14, 2016 17:59
[2016-12-14 20:00] VITALS: BP 144/71; PULSE 95; RESP 20; TEMP 97.4; O2SAT 92
[2016-12-15] VITALS (7 sets, daily range): BP systolic 121–153; BP diastolic 63–77; PULSE 70–86; RESP 18–20; TEMP 97–97.7; O2SAT 92–94
[2016-12-15] MEDS: ACETAMINOPHEN 325 MG TAB PO PRN (00:02)
[2016-12-15] MEDS: DEXTROSE 5%-LACTATED RING INJ 1,000 ML IV SCH ×2 (04:45→14:00)
[2016-12-15] MEDS: DOCUSATE SODIUM 50 MG/SENNA 8.6 MG TAB PO SCH ×2 (09:00→20:34)
[2016-12-15] MEDS: METOPROLOL SUCCINATE 50 MG EXTENDED RELEASE TAB PO SCH (11:30)
[2016-12-15] MEDS: amLODIPine BESYLATE 5 MG TAB PO SCH (11:30)
[2016-12-15] MEDS: AMIODARONE 200 MG TAB PO SCH (11:30)
[2016-12-15] MEDS: SODIUM CHLORIDE 0.9% FLUSH 10 ML FLUSH IV FLUSH SCH ×2 (11:31→20:34)
[2016-12-15] MEDS: WARFARIN SOD 4 MG TAB PO SCH (11:34)
--- NOTE | 2016-12-15 13:45 | HHI.PR ---
Subjective Remarks Follow-up for probable AICD related infection, endocarditis and MSSA bacteremia. Patient is more alert today compared to yesterday. Daughter at bedside. Patient still not participating in activities or conversation much. Remains afebrile. Objective Vitals Vital Signs Date Time Temp Pulse Resp B/P (MAP) Pulse Ox O2 Delivery O2 Flow Rate FiO2 12/15/16 12:00 97.5 77 20 153/76 (101) 93 12/15/16 09:58 94 21 12/15/16 08:00 97.3 78 20 144/73 (96) 94 12/15/16 04:00 97.7 86 20 153/77 (102) 94 12/15/16 00:00 97.6 84 20 121/75 (90) 92 12/15/16 00:00 Room Air 12/14/16 20:00 Room Air 12/14/16 20:00 97.4 95 20 144/71 (95) 92 12/14/16 15:07 97.5 87 22 150/63 (92) 92 I/O 12/14/16 12/14/16 12/14/16 12/15/16 12/15/16 12/15/16 07:00 15:00 23:00 07:00 15:00 23:00 Intake Total 504 ml 350 ml 1803 ml Output Total 350 ml 350 ml 500 ml Balance 154 ml 0 ml 1303 ml Intake Oral 0 ml 350 ml IV Total 504 ml 1803 ml Output Urine Total 350 ml 350 ml 500 ml # Bowel Movements 0 0 0 Result Diagram: 12/14/16 1325 12/14/16 1323 Imaging Last Impressions Gall Bladder Ultrasound 12/10/16 1504 Signed Impressions: Service Date/Time: Saturday, December 10, 2016 15:21 - CONCLUSION: 1. The liver appears prominent and heterogeneous with lobular contours which could indicate underlying cirrhosis. 2. Apparent mild gallbladder wall thickening no evidence of cholelithiasis. 3. The common bile duct is at the upper limits of normal in size. Sergio Haro MD Chest X-Ray 12/10/16 1256 Signed Impressions: Service Date/Time: Saturday, December 10, 2016 13:18 - CONCLUSION: 1. Mild pulmonary vascular congestion. 2. Marked cardiomegaly. Lazaro Abebe MD Breast Ultrasound 12/10/16 0000 Signed Impressions: Service Date/Time: Saturday, December 10, 2016 13:43 - CONCLUSION: Ill- defined hypoechoic area below the nipple with surrounding edema. The finding is nonspecific and could represent hemorrhage, fluid or infection. Sergio Haro MD Objective Remarks GENERAL: Drowsy, wakes up on verbal commands, wants to just rest. SKIN: Warm and dry. Large indurated area over left breast. HEAD: Normocephalic. EYES: No scleral icterus. No injection or drainage. NECK: Supple, trachea midline. No JVD or lymphadenopathy. CARDIOVASCULAR: Regular rate and rhythm without murmurs, gallops, or rubs. RESPIRATORY: Breath sounds equal bilaterally. No accessory muscle use. GASTROINTESTINAL: Abdomen soft, non-tender, nondistended. MUSCULOSKELETAL: No cyanosis, or edema. BACK: Nontender without obvious deformity. No CVA tenderness. Procedures Transthoracic echocardiogram 12/12/2016 Poor echocardiographic windows Normal LV dimensions Normal LV systolic dysfunction estimated EF 60% There is moderate severe tricuspid regurgitation. There an echogenic linear structure in the RV please correlate clinically Vegetation cannot be excluded The estimated pulmonary arterial pressure is 33 mmHg. A/P Problem List: (1) Severe sepsis ICD Code: A41.9 - Sepsis, unspecified organism; R65.20 - Severe sepsis without septic shock (2) Cellulitis of left breast ICD Code: N61.0 - Mastitis without abscess (3) HARVEY (acute kidney injury) ICD Code: N17.9 - Acute kidney failure, unspecified (4) Hypokalemia ICD Code: E87.6 - Hypokalemia Status: Acute Assessment and Plan Ms. Dailey is a 71-year-old female with a history of hypertension, hyperlipidemia, CAD, CHF, diabetes mellitus who presented to the emergency department today for an evaluation of her altered mental status. Daughters noted that patient was easily agitated and not herself since yesterday 12/09/2016. Patient was evaluated in the emergency department on 2016 for left breast swelling and pain. Patient was discharged with clindamycin and Tylenol 3 in the previous visit. On arrival to the patient has leukocytosis, fever, lactic acid 3.5. She also was found to have acute kidney injury. 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 Pt is allergic to PCN. Currently on Cefazolin 1g Q12hrs. - Left breast ultrasound and gallbladder ultrasound reports reviewed. Left breast finding is concerning for hemorrhage, fluid or infection. - Infectious disease following. - Cardiology was consulted for BORIS. However, per discussion with loader technician , patient did not want to undergo BORIS, she refused and was not cooperative. - EP has been consulted for AICD extraction. - WBC improved from 31.6K ==> 13.3K --> 10.7. - Discussed with Dr. Harris (on cardiology for [facility]) regarding need for device extraction. - Dr. Harris will talk to Dr. Feliciano today or tomorrow. Hopefully device extraction soon. - Will hold Warfarin today and check PT/INR tomorrow. - Acute kidney injury - Baseline creatinine 0.99 on 11/28/2016. Creatinine on admission 1.49 --> 2.32 --> 2.69 --> 2.05. - Renal function impairment maybe related to Vancomycin. Renal function improving. - Hypertension - CAD status post previous stent placements. - Ischemic cardiomyopathy - status post AICD placement about 2 years ago. - Systolic chronic congestive heart failure - Ejection fraction in 2015 was 10-15%. - Continue amlodipine 5 mg with holding parameters. - Hold HUMBLE inhibitor for now. - Continue metoprolol succinate 50 mg daily with holding parameters. - Hold diuretics. - History of DVT - Currently on Warfarin. INR 1.7 Full code. Warfarin. Chayo Anthony DO Dec 15, 2016 1:45 pm
[2016-12-16] VITALS: BP 138/64; PULSE 83; RESP 20; TEMP 97.8; O2SAT 94
[2016-12-16 04:50] VITALS: BP 142/70; PULSE 81; RESP 20; TEMP 97.3; O2SAT 91
[2016-12-16 08:00] VITALS: BP 143/80; PULSE 82; RESP 18; TEMP 97.8; O2SAT 90
[2016-12-16] MEDS: SODIUM CHLORIDE 0.9% FLUSH 10 ML FLUSH IV FLUSH SCH ×2 (08:28→20:46)
[2016-12-16] MEDS: amLODIPine BESYLATE 5 MG TAB PO SCH (08:29)
[2016-12-16] MEDS: METOPROLOL SUCCINATE 50 MG EXTENDED RELEASE TAB PO SCH (08:29)
[2016-12-16] MEDS: DOCUSATE SODIUM 50 MG/SENNA 8.6 MG TAB PO SCH ×3 (08:29→20:47)
[2016-12-16] MEDS: AMIODARONE 200 MG TAB PO SCH (08:29)
[2016-12-16 09:50] LABS: INTERNATIONAL NORMALIZED RATIO 1.7 RATIO; PROTHROMBIN TIME - PATIENT 19.5 SEC (9.8-11.6)
[2016-12-16 12:00] VITALS: BP 130/72; PULSE 72; RESP 18; TEMP 97.8; O2SAT 93
--- NOTE | 2016-12-16 13:14 | HHI.PR ---
Subjective Remarks Follow-up for AICD related device infection, bacteremia. Patient is actually much more alert today compared to last 2 days. She is sitting in her chair fully alert and conversing with family. Denies any chest pain, shortness of breath, fever or chills. Objective Vitals Vital Signs Date Time Temp Pulse Resp B/P (MAP) Pulse Ox O2 Delivery O2 Flow Rate FiO2 12/16/16 12:00 97.8 72 18 130/72 (91) 93 12/16/16 08:00 97.8 82 18 143/80 (101) 90 12/16/16 08:00 Room Air 12/16/16 04:50 97.3 81 20 142/70 (94) 91 12/16/16 00:00 97.8 83 20 138/64 (88) 94 12/15/16 20:17 97.2 85 18 148/77 (100) 93 12/15/16 20:00 Room Air 12/15/16 16:00 97.0 70 20 140/63 (88) 94 I/O 12/15/16 12/15/16 12/15/16 12/16/16 12/16/16 12/16/16 07:00 15:00 23:00 07:00 15:00 23:00 Intake Total 1803 ml 1242 ml 300 ml Output Total 500 ml 900 ml 451 ml Balance 1303 ml 342 ml -151 ml Intake Oral 360 ml 200 ml IV Total 1803 ml 882 ml 100 ml Output Urine Total 500 ml 900 ml 450 ml Stool Total 1 ml # Bowel Movements 0 0 Result Diagram: 12/14/16 1325 12/14/16 1323 Imaging Last Impressions Gall Bladder Ultrasound 12/10/16 1504 Signed Impressions: Service Date/Time: Saturday, December 10, 2016 15:21 - CONCLUSION: 1. The liver appears prominent and heterogeneous with lobular contours which could indicate underlying cirrhosis. 2. Apparent mild gallbladder wall thickening no evidence of cholelithiasis. 3. The common bile duct is at the upper limits of normal in size. Sergio Haro MD Chest X-Ray 12/10/16 1256 Signed Impressions: Service Date/Time: Saturday, December 10, 2016 13:18 - CONCLUSION: 1. Mild pulmonary vascular congestion. 2. Marked cardiomegaly. Lazaro Abebe MD Breast Ultrasound 12/10/16 0000 Signed Impressions: Service Date/Time: Saturday, December 10, 2016 13:43 - CONCLUSION: Ill- defined hypoechoic area below the nipple with surrounding edema. The finding is nonspecific and could represent hemorrhage, fluid or infection. Sergio Haro MD Objective Remarks GENERAL: Alert, NAD. SKIN: Warm and dry. Large indurated area over left breast. HEAD: Normocephalic. EYES: No scleral icterus. No injection or drainage. NECK: Supple, trachea midline. No JVD or lymphadenopathy. CARDIOVASCULAR: Regular rate and rhythm without murmurs, gallops, or rubs. RESPIRATORY: Breath sounds equal bilaterally. No accessory muscle use. GASTROINTESTINAL: Abdomen soft, non-tender, nondistended. MUSCULOSKELETAL: No cyanosis, or edema. BACK: Nontender without obvious deformity. No CVA tenderness. Procedures Transthoracic echocardiogram 12/12/2016 Poor echocardiographic windows Normal LV dimensions Normal LV systolic dysfunction estimated EF 60% There is moderate severe tricuspid regurgitation. There an echogenic linear structure in the RV please correlate clinically Vegetation cannot be excluded The estimated pulmonary arterial pressure is 33 mmHg. A/P Problem List: (1) Severe sepsis ICD Code: A41.9 - Sepsis, unspecified organism; R65.20 - Severe sepsis without septic shock (2) Cellulitis of left breast ICD Code: N61.0 - Mastitis without abscess (3) HARVEY (acute kidney injury) ICD Code: N17.9 - Acute kidney failure, unspecified (4) Hypokalemia ICD Code: E87.6 - Hypokalemia Status: Acute Assessment and Plan Ms. Dailey is a 71-year-old female with a history of hypertension, hyperlipidemia, CAD, CHF, diabetes mellitus who presented to the emergency department today for an evaluation of her altered mental status. Daughters noted that patient was easily agitated and not herself since yesterday 12/09/2016. Patient was evaluated in the emergency department on 2016 for left breast swelling and pain. Patient was discharged with clindamycin and Tylenol 3 in the previous visit. On arrival to the patient has leukocytosis, fever, lactic acid 3.5. She also was found to have acute kidney injury. 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 Pt is allergic to PCN. Currently on Cefazolin 1g Q12hrs. - Left breast ultrasound and gallbladder ultrasound reports reviewed. Left breast finding is concerning for hemorrhage, fluid or infection. - Infectious disease following. - Cardiology was consulted for BORIS. However, per discussion with concrete gun operator , patient did not want to undergo BORIS, she refused and was not cooperative. - EP has been consulted for AICD extraction. Dr. Feliciano will evaluate later today. - WBC improved from 31.6K ==> 13.3K --> 10.7. - INR 1.7 on 12/16/2016. - Acute kidney injury - Baseline creatinine 0.99 on 11/28/2016. Creatinine on admission 1.49 --> 2.32 --> 2.69 --> 2.05. - Renal function impairment maybe related to Vancomycin. Renal function improving. - Hypertension - CAD status post previous stent placements. - Ischemic cardiomyopathy - status post AICD placement about 2 years ago. - Systolic chronic congestive heart failure - Ejection fraction in 2014 was 10-15%. - Continue amlodipine 5 mg with holding parameters. - Hold HUMBLE inhibitor for now. - Continue metoprolol succinate 50 mg daily with holding parameters. - Hold diuretics. - History of DVT - Currently on Warfarin. INR 1.7 Full code. Warfarin. Discussed with infectious disease, cardiology ( Dr. Feliciano ). Chayo Anthony DO Dec 16, 2016 1:14 pm
[2016-12-16 13:54] LABS: AUTOMATED NEUTROPHIL # 5.8 TH/MM3 (1.8-7.7); BASOPHIL # 0.1 TH/MM3 (0-0.2); BASOPHIL % 1.1 % (0.0-2.0); EOSINOPHIL # 0.2 TH/MM3 (0-0.4); EOSINOPHIL % 2.7 % (0.0-4.0); HEMATOCRIT 35.6 % (35.0-46.0); HEMO FLAGS DIFF FINAL; LYMPH % 9.4 % (9.0-44.0); LYMPHOCYTE # 0.8 TH/MM3 (1.0-4.8); MEAN CELL VOLUME 74.3 FL (80.0-100.0); MEAN CORPUSCULAR HEMOGLOBIN 21.5 PG (27.0-34.0); MONO % 17.5 % (0.0-8.0); NEUT % 69.3 % (16.0-70.0); PLATELET COUNT 278 TH/MM3 (150-450); RED BLOOD COUNT 4.78 MIL/MM3 (4.00-5.30); RED CELL DISTRIBUTION WIDTH 24.2 % (11.6-17.2); WHITE BLOOD COUNT 8.3 TH/MM3 (4.0-11.0)
[2016-12-16] MEDS: POTASSIUM CHLORIDE 10 MEQ CONTROLLED RELEASE TAB PO SCH ×2 (14:57→20:46)
--- NOTE | 2016-12-16 15:50 | HHI.PR ---
Addendum to Inpatient Note Additional Information pt seen around 1300 full note to follow Darleen Tamayo MD Dec 16, 2016 15:50
[2016-12-16 16:00] VITALS: BP 155/80; PULSE 60; RESP 18; TEMP 97.7; O2SAT 91
[2016-12-16 16:01] LABS: BICARBONATE 24.9 MEQ/L (21.0-32.0); POTASSIUM 3.3 MEQ/L (3.5-5.1)
[2016-12-16] MEDS: DEXTROSE 5%-LACTATED RING INJ 1,000 ML IV SCH (16:30)
[2016-12-16 20:00] VITALS: BP 145/72; PULSE 78; RESP 16; TEMP 99.2; O2SAT 96
--- NOTE | 2016-12-16 20:14 | HHI.IDPN ---
Subjective Subjective Remarks better awke, Mental stutus improved no fever creatinine better WBC down to nl Antibiotics cefazoline Allergies: Coded Allergies: penicillin G (Unverified Allergy, Severe, rash, 11/28/16) benazepril (Unverified Allergy, Mild, 11/28/16) HUMBLE inhibitor angioedema, swelling of the face lips and anterior tongue captopril (Unverified Allergy, Mild, 11/28/16) HUMBLE inhibitor angioedema, swelling of the face lips and anterior tongue enalaprilat (Unverified Allergy, Mild, 11/28/16) HUMBLE inhibitor angioedema, swelling of the face lips and anterior tongue fosinopril (Unverified Allergy, Mild, 11/28/16) HUMBLE inhibitor angioedema, swelling of the face lips and anterior tongue lisinopril (Unverified Allergy, Mild, 11/28/16) HUMBLE inhibitor angioedema, swelling of the face lips and anterior tongue quinapril (Unverified Allergy, Mild, 11/28/16) HUMBLE inhibitor angioedema, swelling of the face lips and anterior tongue Uncoded Allergies: NON COMPATIBLE PACEMAKER (Adverse Reaction, Severe, MRI PRECAUTION / PACEMAKER, 11/03/14) MRI PRECAUTION. PACEMAKER Objective . Vital Signs Date Time Temp Pulse Resp B/P (MAP) Pulse Ox O2 Delivery O2 Flow Rate FiO2 12/16/16 16:00 97.7 60 18 155/80 (105) 91 12/16/16 12:00 97.8 72 18 130/72 (91) 93 12/16/16 08:00 97.8 82 18 143/80 (101) 90 12/16/16 08:00 Room Air 12/16/16 04:50 97.3 81 20 142/70 (94) 91 12/16/16 00:00 97.8 83 20 138/64 (88) 94 12/15/16 20:17 97.2 85 18 148/77 (100) 93 12/16/16 12/16/16 12/17/16 15:00 23:00 07:00 Intake Total 720 ml Output Total 300 ml Balance 420 ml Intake Oral 720 ml Output Urine Total 300 ml # Bowel Movements 2 . Laboratory Tests Test 12/16/16 12:36 White Blood Count 8.3 TH/MM3 Red Blood Count 4.78 MIL/MM3 Hemoglobin 10.3 GM/DL Hematocrit 35.6 % Mean Corpuscular Volume 74.3 FL Mean Corpuscular Hemoglobin 21.5 PG Mean Corpuscular Hemoglobin Concent 29.0 % Red Cell Distribution Width 24.2 % Platelet Count 278 TH/MM3 Mean Platelet Volume 8.3 FL Neutrophils (%) (Auto) 69.3 % Lymphocytes (%) (Auto) 9.4 % Monocytes (%) (Auto) 17.5 % Eosinophils (%) (Auto) 2.7 % Basophils (%) (Auto) 1.1 % Neutrophils # (Auto) 5.8 TH/MM3 Lymphocytes # (Auto) 0.8 TH/MM3 Monocytes # (Auto) 1.5 TH/MM3 Eosinophils # (Auto) 0.2 TH/MM3 Basophils # (Auto) 0.1 TH/MM3 CBC Comment DIFF FINAL Differential Comment Laboratory Tests Test 12/16/16 15:05 Blood Urea Nitrogen 19 MG/DL Creatinine 1.28 MG/DL Random Glucose 117 MG/DL Calcium Level 8.8 MG/DL Sodium Level 143 MEQ/L Potassium Level 3.3 MEQ/L Chloride Level 109 MEQ/L Carbon Dioxide Level 24.9 MEQ/L Anion Gap 9 MEQ/L Estimat Glomerular Filtration Rate 50 ML/MIN Imaging Last Impressions Gall Bladder Ultrasound 12/10/16 1504 Signed Impressions: Service Date/Time: Saturday, December 10, 2016 15:21 - CONCLUSION: 1. The liver appears prominent and heterogeneous with lobular contours which could indicate underlying cirrhosis. 2. Apparent mild gallbladder wall thickening no evidence of cholelithiasis. 3. The common bile duct is at the upper limits of normal in size. Sergio Haro MD Chest X-Ray 12/10/16 1256 Signed Impressions: Service Date/Time: Saturday, December 10, 2016 13:18 - CONCLUSION: 1. Mild pulmonary vascular congestion. 2. Marked cardiomegaly. Lazaro Abebe MD Breast Ultrasound 12/10/16 0000 Signed Impressions: Service Date/Time: Saturday, December 10, 2016 13:43 - CONCLUSION: Ill- defined hypoechoic area below the nipple with surrounding edema. The finding is nonspecific and could represent hemorrhage, fluid or infection. Sergio Haro MD Physical Exam CONSTITUTIONAL/GENERAL: This is an adequately nourished patient, in no apparent distress. TUBES/LINES/DRAINS: SKIN: No jaundice, rashes, or lesions. Skin temperature appropriate. Not diaphoretic. CARDIOVASCULAR: Regular rate and rhythm without murmurs, gallops, or rubs. No JVD. Peripheral pulses symmetric. RESPIRATORY/CHEST: Symmetric, unlabored respirations. Clear to auscultation. Breath sounds equal bilaterally. No wheezes, rales, or rhonchi. GASTROINTESTINAL: Abdomen soft, non-tender, nondistended. No hepato-splenomegaly , or palpable masses. No guarding. Bowel sounds present. GENITOURINARY: Without palpable bladder distension. MUSCULOSKELETAL: Extremities without clubbing, cyanosis, or edema. BLE with prominent varices NEUROLOGICAL: awake, alert, talkative PSYCHIATRIC: calm and cooperative Assessment & Plan Remarks High grade MSSA bacteremia and L chest edema aw pacer - probable pacer infection/endocarditis refused BORIS ? pacer lead vegetation on the wire High grade PCN allergy: hives, tolearting [place] cefepime New issu: HARVEY - resolved - eosinophils negative Pt is getting better Recs: cont cefazoline, increase dosing for improving GFR awaiting Dr Feliciano evaluation for AICD extraction repeat blood clx monitor urine output Discussed Condition With dgtr at b/s Darleen Rios MD Dec 16, 2016 20:14
[2016-12-17] VITALS (7 sets, daily range): BP systolic 132–162; BP diastolic 70–89; PULSE 73–88; RESP 16–20; TEMP 97.5–98.9; O2SAT 92–95
[2016-12-17] MEDS: POTASSIUM CHLORIDE 10 MEQ CONTROLLED RELEASE TAB PO SCH ×3 (05:38→21:09)
--- NOTE | 2016-12-17 07:05 | MB ---
cc: PEARL WALTERS HANSCY M.D. DATE OF CONSULTATION 12/16/2016 REASON FOR CONSULTATION Bacteremia, defibrillator removal. HISTORY OF PRESENT ILLNESS Mrs. Dailey is a 71-year-old -[place] female with history of with congestive heart failure, cardiomyopathy. She has a previous defibrillator inserted done in 2012, history of high blood pressure, coronary artery disease, right breast lumpectomy. She was admitted for hospitalization due to sepsis. Multiple blood cultures are positive. 2-D echo by Dr. Mcclelland indicated possible vegetation in the defibrillator lead. I was consulted for evaluation for lead extraction and device removal. The chart was reviewed. The patient was evaluated. ALLERGIES BENAZEPRIL. CAPTOPRIL. ENALAPRIL. FOSINAPRIL. LISINOPRIL. PENICILLIN. QUINAPRIL. SOCIAL HISTORY The patient is still smoking. FAMILY HISTORY Noncontributory to her current medical condition. CURRENT MEDICATIONS 1. Ancef IV. 2. Tylenol. 3. Amiodarone 200 mg a day. 4. Amlodipine 5 mg a day. 5. Metoprolol ER 50 mg a day. 6. Potassium. 7. Coumadin as directed. REVIEW OF SYSTEMS Currently she refers no chest pain or chest discomfort. No shortness of breath. No fever. PHYSICAL EXAMINATION GENERAL: Alert, fully oriented. VITAL SIGNS: Her blood pressure is 155/80, pulse 60, respiratory 18. LUNGS: Ventilated. CARDIOVASCULAR: S1-S2, regular. No gallop. ABDOMEN: Soft. No mass. No wheeze. EXTREMITIES: With no edema. INVESTIGATIONS Recent electrocardiogram taking on November 28 indicates sinus rhythm with PACs, no active ST and T-wave changes. LABORATORY DATA Hemoglobin is 10.3, white blood cell 8.3, potassium is 3.3, creatinine 1.28. ASSESSMENT AND RECOMMENDATIONS Mrs. Dailey had multiple blood cultures positive for Staph aureus. She has a device inserted. There is a possibility of vegetation in the device. The lead and the defibrillator need to be removed. The patient will need lead extraction. I had a long conversation with her and her daughter. The risks, the nature and the benefit of the procedure are clearly stated to her. The risks include pneumothorax, cardiac perforation, stroke and even . They understand and agree to proceed. She currently is on Coumadin. INR is 1.7. I am going to put the Coumadin on hold. I am going to consult Dr. Amaral for lead extraction. Case discussed with him over the phone. Birgit Feliciano MD HS/SSB /7:20 PM /6:51 AM
[2016-12-17] MEDS: DOCUSATE SODIUM 50 MG/SENNA 8.6 MG TAB PO SCH ×2 (08:10→21:00)
[2016-12-17] MEDS: SODIUM CHLORIDE 0.9% FLUSH 10 ML FLUSH IV FLUSH SCH ×2 (08:13→21:00)
[2016-12-17] MEDS: AMIODARONE 200 MG TAB PO SCH (08:13)
[2016-12-17] MEDS: METOPROLOL SUCCINATE 50 MG EXTENDED RELEASE TAB PO SCH (08:13)
[2016-12-17] MEDS: amLODIPine BESYLATE 5 MG TAB PO SCH (08:13)
[2016-12-17] MEDS ORDERED: VANCOMYCIN INJ 1,250 MG in SODIUM CHLOR 0.9% 250 ML INJ 250 ML IV SCH (11:15)
[2016-12-17] MEDS ORDERED: CHLORHEXIDINE GLUCONATE 4% SOLN 120 ML BTL TOPICAL SCH (11:15)
[2016-12-17] MEDS ORDERED: VANCOMYCIN INJ 1,000 MG in SODIUM CHLORIDE 0.9% IRR BTL 1,000 ML IRRIGATION SCH (11:15)
[2016-12-17] MEDS ORDERED: SODIUM CHLORIDE 0.9% FLUSH 10 ML FLUSH IV FLUSH PRN (11:15)
[2016-12-17] MEDS: DEXTROSE 5%-LACTATED RING INJ 1,000 ML IV SCH ×2 (12:41)
--- NOTE | 2016-12-17 13:51 | HHI.PR ---
Subjective Remarks Follow-up for AICD related device infection, bacteremia. Patient is alert, converses normally. Daughter present at bedside. No fever, chills. Objective Vitals Vital Signs Date Time Temp Pulse Resp B/P (MAP) Pulse Ox O2 Delivery O2 Flow Rate FiO2 12/17/16 12:22 97.9 75 20 140/89 (106) 95 12/17/16 08:33 98.3 88 20 158/86 (110) 93 12/17/16 08:15 Room Air 12/17/16 04:00 Room Air 12/17/16 04:00 97.5 77 16 160/78 (105) 93 12/17/16 00:00 Room Air 12/17/16 00:00 98.9 74 16 132/70 (90) 95 12/16/16 20:00 Room Air 12/16/16 20:00 99.2 78 16 145/72 (96) 96 12/16/16 16:00 97.7 60 18 155/80 (105) 91 I/O 12/16/16 12/16/16 12/16/16 12/17/16 12/17/16 12/17/16 07:00 15:00 23:00 07:00 15:00 23:00 Intake Total 300 ml 720 ml 1480 ml 1000 ml Output Total 451 ml 300 ml 450 ml Balance -151 ml 420 ml 1030 ml 1000 ml Intake Oral 200 ml 720 ml 480 ml IV Total 100 ml 1000 ml 1000 ml Output Urine Total 450 ml 300 ml 450 ml Stool Total 1 ml # Bowel Movements 2 2 Result Diagram: 12/16/16 1236 12/16/16 1505 Imaging Last Impressions Gall Bladder Ultrasound 12/10/16 1504 Signed Impressions: Service Date/Time: Saturday, December 10, 2016 15:21 - CONCLUSION: 1. The liver appears prominent and heterogeneous with lobular contours which could indicate underlying cirrhosis. 2. Apparent mild gallbladder wall thickening no evidence of cholelithiasis. 3. The common bile duct is at the upper limits of normal in size. Sergio Haro MD Chest X-Ray 12/10/16 1256 Signed Impressions: Service Date/Time: Saturday, December 10, 2016 13:18 - CONCLUSION: 1. Mild pulmonary vascular congestion. 2. Marked cardiomegaly. Lazaro Abebe MD Breast Ultrasound 12/10/16 0000 Signed Impressions: Service Date/Time: Saturday, December 10, 2016 13:43 - CONCLUSION: Ill- defined hypoechoic area below the nipple with surrounding edema. The finding is nonspecific and could represent hemorrhage, fluid or infection. Sergio Haro MD Objective Remarks GENERAL: Alert, NAD. SKIN: Warm and dry. Large indurated area over left breast. HEAD: Normocephalic. EYES: No scleral icterus. No injection or drainage. NECK: Supple, trachea midline. No JVD or lymphadenopathy. CARDIOVASCULAR: Regular rate and rhythm without murmurs, gallops, or rubs. RESPIRATORY: Breath sounds equal bilaterally. No accessory muscle use. GASTROINTESTINAL: Abdomen soft, non-tender, nondistended. MUSCULOSKELETAL: No cyanosis, or edema. BACK: Nontender without obvious deformity. No CVA tenderness. Procedures Transthoracic echocardiogram 12/12/2016 Poor echocardiographic windows Normal LV dimensions Normal LV systolic dysfunction estimated EF 60% There is moderate severe tricuspid regurgitation. There an echogenic linear structure in the RV please correlate clinically Vegetation cannot be excluded The estimated pulmonary arterial pressure is 33 mmHg. A/P Problem List: (1) Severe sepsis ICD Code: A41.9 - Sepsis, unspecified organism; R65.20 - Severe sepsis without septic shock (2) Cellulitis of left breast ICD Code: N61.0 - Mastitis without abscess (3) HARVEY (acute kidney injury) ICD Code: N17.9 - Acute kidney failure, unspecified (4) Hypokalemia ICD Code: E87.6 - Hypokalemia Status: Acute Assessment and Plan Ms. Dailey is a 71-year-old female with a history of hypertension, hyperlipidemia, CAD, CHF, diabetes mellitus who presented to the emergency department today for an evaluation of her altered mental status. Daughters noted that patient was easily agitated and not herself since yesterday 12/09/2016. Patient was evaluated in the emergency department on 2016 for left breast swelling and pain. Patient was discharged with clindamycin and Tylenol 3 in the previous visit. On arrival to the patient has leukocytosis, fever, lactic acid 3.5. She also was found to have acute kidney injury. 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 Pt is allergic to PCN. Currently on Cefazolin 1g Q12hrs. - Left breast ultrasound and gallbladder ultrasound reports reviewed. Left breast finding is concerning for hemorrhage, fluid or infection. - Infectious disease following. - Patient refused BORIS. EP and Cardiothoracic surgery following - device, lead extraction tomorrow. - WBC improved from 31.6K ==> 13.3K --> 10.7. - INR 1.4 today. - Acute kidney injury, improving. - Baseline creatinine 0.99 on 11/28/2016. Creatinine on admission 1.49 --> 2.32 --> 2.69 --> 2.05 --> 1.28. - Renal function impairment maybe related to Vancomycin. Renal function improving. - Hypertension - CAD status post previous stent placements. - Ischemic cardiomyopathy - status post AICD placement about 2 years ago. - Systolic chronic congestive heart failure - Ejection fraction in 2014 was 10-15%. - Continue amlodipine 5 mg with holding parameters. - Hold HUMBLE inhibitor for now. - Continue metoprolol succinate 50 mg daily with holding parameters. - Hold diuretics. - History of DVT - Currently on Warfarin. INR 1.4 Full code. Warfarin, currently on hold. Will resume after device extraction. Chayo Anthony DO Dec 17, 2016 13:51
[2016-12-17 15:14] LABS: BACTERIA, URINE OCC /hpf; BLOOD, URINE MOD (NEG); COMMENT (UR) CULTURE INDICATED; CULTURE IF INDICATED CULTURE INDICATED; GLUCOSE,URINE NEG (NEG); KETONE, URINE NEG (NEG); NITRITE,URINE NEG (NEG); SQUAMOUS EPITHELIAL CELL URINE 8 /hpf (0-5); URINE COLOR YELLOW (YELLW/STRAW)
[2016-12-17] MEDS ORDERED: PHYTONADIONE 5 MG TAB PO ONE (15:15)
[2016-12-17 16:12] LABS: INTERNATIONAL NORMALIZED RATIO 1.4 RATIO; PROTHROMBIN TIME - PATIENT 15.8 SEC (9.8-11.6)
--- NOTE | 2016-12-17 16:12 | MB ---
cc: PEARL WALTERS DATE OF CONSULTATION 12/17/2016 DATE OF 1945 DATE OF ADMISSION 12/10/[address] Emily De La Cruz. HISTORY OF THE PRESENT ILLNESS A 71-year-old patient brought into the emergency room by her family for altered mental status. The patient's family noted she was not herself. She was getting very weak, complaining of some left breast pain and swelling. She had been seen earlier and had been apparently discharged with a clindamycin, Tylenol #3. On arrival to the emergency department her temperature was 101.9, white cell count was 31,000. She was admitted with sepsis. She underwent a left breast ultrasound which showed an ill-defined hypoechoic area below the nipple with surrounding edema. Blood cultures were growing gram-positive cocci in pairs. The final came staph aureus in two out of four bottles. Repeat cultures are pending from the . She also underwent echocardiogram which showed an EF of 60-65%, moderate tricuspid regurgitation. No mitral valve stenosis or regurgitation. The patient has a history of congestive heart failure, cardiomyopathy, had a previous defibrillator inserted into 2012. Multiple blood cultures again were positive and there was an echo with an echogenic linear obstruction RV with concern for possible vegetation on the defibrillator lead. We were consulted to evaluate for lead extraction and device removal. PAST MEDICAL HISTORY The patient's past medical history significant for: 1. Diabetes mellitus. 2. Hypertension. 3. Coronary artery disease. 4. Cardiomyopathy. 5. Congestive heart failure. 6. Had a DVT, has been on Coumadin. 7. Has had an AICD placement in 2012. 8. Systolic type heart failure. PAST SURGICAL HISTORY Surgeries include: 1. Right breast lumpectomy. 2. Hysterectomy. 3. Appendectomy. 4. AICD implant. ALLERGIES THE PATIENT IS ALLERGIC TO BENAZEPRIL, CAPTOPRIL, ENALAPRIL, FOSINOPRIL, LISINOPRIL, PENICILLIN-G, QUINAPRIL, FAMILY HISTORY Mother had heart disease. Father had diabetes. SOCIAL HISTORY Smokes a pack per day. Occasional alcohol. Lives with her . REVIEW OF SYSTEMS As above in HPI. Otherwise 12 unremarkable. PHYSICAL EXAMINATION This is a pleasant 71-year-old female. Alert and oriented. VITAL SIGNS: Blood pressure 140/80, heart rate 75, temperature max 97.9. GENERAL: The patient is awake, alert, in no acute distress. HEENT: Head is normocephalic, atraumatic. Pupils equal and reactive. Oral mucosa pink, moist. NECK: Supple. No JVD. CHEST: She has a very large indurated area to the left upper chest / breast area tender and warm to the touch. No external drainage. ABDOMEN: Soft, nontender. No masses or organomegaly. EXTREMITIES: No cyanosis, clubbing or edema. LABORATORY FINDINGS Shows hemoglobin 10, hematocrit 35, white cell count 8.3, platelet count 278. Sodium 143, potassium 3.3, BUN 19, creatinine 1.28. INR 1.7. Repeat INR is pending. IMPRESSION A 71-year-old female, high-grade MSSA bacteremia, left chest edema, probable pacer infection and refused TEEx, possible lead vegetation on the wire. PLAN At this time is for pacer ICD extraction and also with lead extraction tomorrow, December 18. All procedures, alternatives and risks have been discussed with the patient. She is agreeable to proceed. We will recheck a PT/INR if greater than 1.5 we will add 5 mg of vitamin K. DICTATED BY: SHANNA Baer MD CAROL Delaney/MALIK /3:05 PM /4:08 PM
[2016-12-18] VITALS (7 sets, daily range): BP systolic 117–159; BP diastolic 59–86; PULSE 60–76; RESP 18–20; TEMP 94.3–97.8; O2SAT 91–96
[2016-12-18] MEDS: DEXTROSE 5%-LACTATED RING INJ 1,000 ML IV SCH (04:15)
[2016-12-18] MEDS: POTASSIUM CHLORIDE 10 MEQ CONTROLLED RELEASE TAB PO SCH ×3 (05:41→21:12)
[2016-12-18] MEDS: AMIODARONE 200 MG TAB PO SCH (08:47)
[2016-12-18] MEDS: amLODIPine BESYLATE 5 MG TAB PO SCH (08:47)
[2016-12-18] MEDS: METOPROLOL SUCCINATE 50 MG EXTENDED RELEASE TAB PO SCH (08:47)
[2016-12-18] MEDS: SODIUM CHLORIDE 0.9% FLUSH 10 ML FLUSH IV FLUSH SCH ×2 (08:48→21:12)
[2016-12-18] MEDS: DOCUSATE SODIUM 50 MG/SENNA 8.6 MG TAB PO SCH ×2 (08:48→21:00)
[2016-12-18 09:31] LABS: INTERNATIONAL NORMALIZED RATIO 1.5 RATIO; PROTHROMBIN TIME - PATIENT 16.4 SEC (9.8-11.6)
--- NOTE | 2016-12-18 09:44 | HHI.PR ---
Subjective Remarks Follow-up for AICD related device infection, bacteremia. Patient is currently doing well. Denies any chest pain, shortness of breath, fever or chills. Family members at bedside. She is going for device extraction at 2 PM today. Objective Vitals Vital Signs Date Time Temp Pulse Resp B/P (MAP) Pulse Ox O2 Delivery O2 Flow Rate FiO2 12/18/16 08:00 97.6 64 18 149/65 (93) 91 12/18/16 04:00 97.1 72 20 144/86 (105) 96 12/18/16 04:00 Room Air 12/18/16 00:00 97.1 67 18 135/66 (89) 95 12/18/16 00:00 Room Air 12/17/16 20:00 Room Air 12/17/16 20:00 97.6 78 18 162/84 (110) 95 12/17/16 17:42 95 21 12/17/16 16:03 97.8 73 20 156/89 (111) 92 12/17/16 16:00 Room Air 12/17/16 12:22 97.9 75 20 140/89 (106) 95 12/17/16 12:00 Room Air I/O 12/17/16 12/17/16 12/17/16 12/18/16 12/18/16 12/18/16 07:00 15:00 23:00 07:00 15:00 23:00 Intake Total 1480 ml 1000 ml 600 ml 1360 ml Output Total 450 ml 300 ml Balance 1030 ml 1000 ml 600 ml 1060 ml Intake Oral 480 ml 600 ml 360 ml IV Total 1000 ml 1000 ml 1000 ml Output Urine Total 450 ml 300 ml # Voids 3 # Bowel Movements 2 1 0 Result Diagram: 12/16/16 1236 12/16/16 1505 Imaging Last Impressions Gall Bladder Ultrasound 12/10/16 1504 Signed Impressions: Service Date/Time: Saturday, December 10, 2016 15:21 - CONCLUSION: 1. The liver appears prominent and heterogeneous with lobular contours which could indicate underlying cirrhosis. 2. Apparent mild gallbladder wall thickening no evidence of cholelithiasis. 3. The common bile duct is at the upper limits of normal in size. Sergio Haro MD Chest X-Ray 12/10/16 1256 Signed Impressions: Service Date/Time: Saturday, December 10, 2016 13:18 - CONCLUSION: 1. Mild pulmonary vascular congestion. 2. Marked cardiomegaly. Lazaro Abebe MD Breast Ultrasound 12/10/16 0000 Signed Impressions: Service Date/Time: Saturday, December 10, 2016 13:43 - CONCLUSION: Ill- defined hypoechoic area below the nipple with surrounding edema. The finding is nonspecific and could represent hemorrhage, fluid or infection. Sergio Haro MD Objective Remarks GENERAL: Alert, NAD. SKIN: Warm and dry. Large indurated area over left breast. HEAD: Normocephalic. EYES: No scleral icterus. No injection or drainage. NECK: Supple, trachea midline. No JVD or lymphadenopathy. CARDIOVASCULAR: Regular rate and rhythm without murmurs, gallops, or rubs. RESPIRATORY: Breath sounds equal bilaterally. No accessory muscle use. GASTROINTESTINAL: Abdomen soft, non-tender, nondistended. MUSCULOSKELETAL: No cyanosis. There is mild edema on upper extremities especially on the right side. BACK: Nontender without obvious deformity. No CVA tenderness. Procedures Transthoracic echocardiogram 12/12/2016 Poor echocardiographic windows Normal LV dimensions Normal LV systolic dysfunction estimated EF 60% There is moderate severe tricuspid regurgitation. There an echogenic linear structure in the RV please correlate clinically Vegetation cannot be excluded The estimated pulmonary arterial pressure is 33 mmHg. A/P Problem List: (1) Severe sepsis ICD Code: A41.9 - Sepsis, unspecified organism; R65.20 - Severe sepsis without septic shock (2) Cellulitis of left breast ICD Code: N61.0 - Mastitis without abscess (3) HARVEY (acute kidney injury) ICD Code: N17.9 - Acute kidney failure, unspecified (4) Hypokalemia ICD Code: E87.6 - Hypokalemia Status: Acute Assessment and Plan Ms. Dailey is a 71-year-old female with a history of hypertension, hyperlipidemia, CAD, CHF, diabetes mellitus who presented to the emergency department today for an evaluation of her altered mental status. Daughters noted that patient was easily agitated and not herself since yesterday 12/09/2016. Patient was evaluated in the emergency department on 2016 for left breast swelling and pain. Patient was discharged with clindamycin and Tylenol 3 in the previous visit. On arrival to the patient has leukocytosis, fever, lactic acid 3.5. She also was found to have acute kidney injury. 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 Pt is allergic to PCN. Currently on Cefazolin 1g Q12hrs. - Left breast ultrasound and gallbladder ultrasound reports reviewed. Left breast finding is concerning for hemorrhage, fluid or infection. - Infectious disease following. - Patient refused BORIS. EP and Cardiothoracic surgery following - device, lead extraction 12/18/2016. - WBC improved from 31.6K ==> 13.3K --> 10.7. - Blood culture from 12/17/2016 No growth to date. - INR 1.5 - Acute kidney injury, improving. - Baseline creatinine 0.99 on 11/28/2016. Creatinine on admission 1.49 --> 2.32 --> 2.69 --> 2.05 --> 1.28. - Renal function impairment maybe related to Vancomycin. Renal function improving. - We'll stop IV fluid. - Hypertension - CAD status post previous stent placements. - Ischemic cardiomyopathy - status post AICD placement about 2 years ago. - Systolic chronic congestive heart failure - Ejection fraction in 2015 was 10-15%. - Continue amlodipine 5 mg with holding parameters. - Hold HUMBLE inhibitor for now. - Continue metoprolol succinate 50 mg daily with holding parameters. - Hold diuretics. - History of DVT - Currently on Warfarin. INR 1.5 Full code. Warfarin, currently on hold. Will resume after device extraction. Chayo Anthony DO Dec 18, 2016 9:44 am
[2016-12-18] MEDS ORDERED: ePHEDrine/NS 25 MG/5 ML SYR IV ONE (12:00)
[2016-12-18] MEDS ORDERED: LIDOCAINE HCL 1% PF 5 ML AMPULE OTHER ONE (12:00)
[2016-12-18] MEDS ORDERED: DEXAMETHASONE SOD PHOS 4 MG/ML VIAL IV ONE (12:00)
[2016-12-18] MEDS ORDERED: PHENYLEPHRINE HCL 10 MG/ML VIAL IV ONE (12:00)
[2016-12-18] MEDS ORDERED: PHENYLEPH/NS 1000 MCG/10 ML SYR IV ONE (12:00)
[2016-12-18] MEDS ORDERED: PROPOFOL 200 MG/20 ML AMP IV ONE (12:00)
[2016-12-18] MEDS ORDERED: VECURONIUM BROMIDE 20 MG VIAL IV ONE (12:00)
[2016-12-18] MEDS ORDERED: ROCURONIUM INJ 50 MG/5 ML SYRINGE IV PUSH ONE (12:00)
[2016-12-18] MEDS ORDERED: SUGAMMADEX SODIUM 200 MG/2 ML VIAL IV PUSH ONE ×2 (13:45)
[2016-12-18] MEDS ORDERED: KETAMINE HCL 500 MG/5 ML VIAL ONE (13:45)
[2016-12-18] MEDS ORDERED: ACETAMINOPHEN 1000 MG/100 ML 100 ML IV ONE (13:45)
[2016-12-18] MEDS ORDERED: POTASSIUM CHLORIDE 40 MEQ/20 ML VIAL ONE (14:06)
[2016-12-18] MEDS ORDERED: CARDIOPLEGIC IRR 2,000 ML ONE (14:07)
[2016-12-18] MEDS ORDERED: HEPARIN SODIUM - IV 10,000 UNITS/10 ML VIAL ONE (14:12)
[2016-12-18] MEDS ORDERED: PROTAMINE SULFATE 50 MG/5 ML VIAL ONE (14:13)
[2016-12-18] MEDS ORDERED: LIDOCAINE HCL 1% 20 ML VIAL ONE (15:10)
[2016-12-18] MEDS ORDERED: oxyCODONE/ACETAMINOPHEN 5 MG/325 MG TAB PO PRN (17:00)
[2016-12-18] MEDS ORDERED: BACITRACIN OINT 0.9 GM PKT TOP PRN (17:00)
[2016-12-18] MEDS ORDERED: ceFAZolin 2 GM PREMIX 50 ML ONE (17:03)
[2016-12-18] MEDS ORDERED: FUROSEMIDE 40 MG/4 ML VIAL ONE (17:17)
--- NOTE | 2016-12-18 17:18 | PD.OP ---
cc: Sarai Garcia MD; Birgit Feliciano MD Operative Report Date of Surgery: Dec 18, 2016 Preoperative Diagnosis: (1) AICD generator infection (2) Aicd lead infection (3) Cellulitis of left breast (4) Severe sepsis Postoperative Diagnosis: same Procedure: Removal of AICD and laser extraction of leads (2) Anesthesia: Dr. Lopez Surgeon: Sarai Garcia Efficiency Manager(s): YELENA Del Rio Operation and Findings: The risks, benefits, complications, treatment options, and expected outcomes were discussed with the patient. The possibilities of reaction to medication, pulmonary aspiration, perforation of viscus, bleeding, recurrent infection, the need for additional procedures, failure to diagnose a condition, and creating a complication requiring transfusion or operation were discussed with the patient. The patient concurred with the proposed plan, giving informed consent. The patient was taken to the hybrid operating room, identified as Facundo Dailey and the procedure verified as removal of AICD and laser lead extraction. A Time Out was held and the above information confirmed. Standard monitoring lines and Wolff catheter were placed. General anesthesia was induced. The patient was prepped and draped in a sterile fashion. The prior AICD skin incision was opened and electrocautery was used to obtain hemostasis and open the pocket. There was ~100 ml of grossly purulent drainage and cultures were submitted. The AICD can was removed and the leads disconnected. Both leads were mobilized completely and suture sleeves removed. The stylets were placed and the leads were unscrewed. One lead was mobile and completely removed. The other lead was fixed and the end was cut after removing the stylet. A locking stylet was positioned and deployed . A rail was constructed and a 14F laser sheath was passed over the rail. Binding was encountered in the subclavian area at the clavicle as well as across the innominate vein and SVC. The laser was used to mobilize the lead all the way into the right atrium. The lead was then mobilized in the right ventricle and removed. Pressure was used to obtain hemostasis. The capsule was removed using electrocautery and submitted to Pathology. The wound was copiously irrigated with vancomycin irrigation. After obtaining hemostasis, a 19F Frantz drain was placed and secured with a 2-0 silk suture. The fascia was closed with 0 monocryl. The subcutaneous tissue was closed using a running 2-0 monocryl suture. The skin was closed with 4-0 Monocryl. Sterile dressings were placed. At the end of the operation, all sponge, instruments, and needle counts were correct. The patient was transferred to the PACU in stable condition. Findings: Grossly infected AICD and leads Drains: 19F Frantz drain Specimens: Capsule, leads, and cultures Complications: none Disposition: to PACU in stable condition Sarai Garcia MD Dec 18, 2016 17:18
[2016-12-18] MEDS ORDERED: *RESP: ALBUTEROL 2.5 MG/3 ML NEB (PRN) PERIprocedural Use ONLY NEB ONE (18:20)
--- NOTE | 2016-12-18 18:29 | RADRPT ---
EXAM DATE/TIME: 12/18/2016 17:54 [facility] COMPARISON: CHEST SINGLE AP, November 28, 2016, 10:10. CHEST SINGLE AP, December 10, 2016, 13:18. INDICATIONS : Shortness of breath. MEDICAL HISTORY : Cardiovascular disease. Chronic obstructive pulmonary disease. Hypertension. SURGICAL HISTORY : Coronary artery stent. Defibrillator. Pacemaker. ENCOUNTER: Subsequent ACUITY: 1 week PAIN SCORE: Non-responsive. LOCATION: Bilateral chest FINDINGS: A single view of the chest demonstrates diffuse interstitial process with bibasilar airspace consolid ation/effusion and cardiomegaly are characteristic of failure. There appears to be interval removal o f the left subclavian bipolar pacer/defibrillator. No pneumothorax. Osseous structures are intact. CONCLUSION: 1. Apparent interval removal of the left subclavian bipolar pacer/defibrillator. 2. No pneumothorax. 3. Cardiomegaly with interstitial prominence, bilateral airspace disease and effusions are characteri stic of failure. Mt Alvarez MD on December 18, 2016 at 18:21 Board Certified Radiologist. This report was verified electronically.
[2016-12-18] MEDS ORDERED: DO NOT ADM ANY ANTICOAGULANT DRUGS PRN (19:00)
[2016-12-19] VITALS (10 sets, daily range): BP systolic 86–128; BP diastolic 44–61; PULSE 54–66; RESP 14–18; TEMP 94.8–97.5; O2SAT 93–100
[2016-12-19] MEDS: POTASSIUM CHLORIDE 10 MEQ CONTROLLED RELEASE TAB PO SCH (05:46)
[2016-12-19] MEDS: amLODIPine BESYLATE 5 MG TAB PO SCH ×2 (09:00→09:32)
[2016-12-19] MEDS: DOCUSATE SODIUM 50 MG/SENNA 8.6 MG TAB PO SCH ×2 (09:00→20:43)
[2016-12-19] MEDS: METOPROLOL SUCCINATE 50 MG EXTENDED RELEASE TAB PO SCH ×2 (09:00→09:32)
[2016-12-19] MEDS: SODIUM CHLORIDE 0.9% FLUSH 10 ML FLUSH IV FLUSH SCH ×2 (09:32→20:43)
[2016-12-19] MEDS: AMIODARONE 200 MG TAB PO SCH (09:32)
--- NOTE | 2016-12-19 14:03 | HHI.PR ---
Subjective Remarks Follow-up for AICD related device infection, bacteremia. Ms. Dailey is currently doing well. Resting in bed. Denies any chest pain, shortness of breath, fever or chills. Her blood pressure has been on the lower side but denies any symptoms. Objective Vitals Vital Signs Date Time Temp Pulse Resp B/P (MAP) Pulse Ox O2 Delivery O2 Flow Rate FiO2 12/19/16 12:00 97.2 56 16 86/52 (63) 95 12/19/16 09:27 Nasal Cannula 2.00 12/19/16 08:00 97.1 59 16 99/54 (69) 99 12/19/16 05:07 94.8 66 18 128/61 (83) 100 12/18/16 23:40 94.3 60 18 117/59 (78) 95 12/18/16 20:50 94.6 66 18 124/59 (80) 95 12/18/16 20:00 Nasal Cannula 4.00 12/18/16 19:30 60 16 135/60 (85) 95 Nasal Cannula 4 12/18/16 19:15 61 18 133/61 (85) 95 Nasal Cannula 4 12/18/16 19:00 56 20 140/65 (90) 92 Nasal Cannula 4 12/18/16 18:45 59 20 137/63 (87) 92 Nasal Cannula 4 12/18/16 18:30 65 20 128/59 (82) 96 Nasal Cannula 4 143/63 (89) 12/18/16 18:15 63 20 109/59 (76) 92 Nasal Cannula 4 127/53 (77) 12/18/16 18:00 66 20 110/63 (79) 94 Nasal Cannula 4 127/63 (84) 12/18/16 17:45 71 20 123/79 (94) 92 Nasal Cannula 4 135/66 (89) 12/18/16 17:38 98.0 79 20 114/82 (93) 96 Simple Mask 12/18/16 17:37 92 21 I/O 12/18/16 12/18/16 12/18/16 12/19/16 12/19/16 12/19/16 07:00 15:00 23:00 07:00 15:00 23:00 Intake Total 1360 ml 550 ml 0 ml 0 ml Output Total 300 ml 275 ml 150 ml 70 ml Balance 1060 ml 550 ml -275 ml -150 ml -70 ml Intake Oral 360 ml 0 ml 0 ml IV Total 1000 ml 550 ml 0 ml Output Urine Total 300 ml 175 ml 150 ml Drainage Total 100 ml 70 ml # Voids 2 # Bowel Movements 0 1 0 Result Diagram: 12/16/16 1236 12/16/16 1505 Imaging Last Impressions Chest X-Ray 12/18/16 0000 Signed Impressions: Service Date/Time: Sunday, December 18, 2016 17:54 - CONCLUSION: 1. Apparent interval removal of the left subclavian bipolar pacer/defibrillator. 2. No pneumothorax. 3. Cardiomegaly with interstitial prominence, bilateral airspace disease and effusions are characteristic of failure. Mt Alvarez MD Gall Bladder Ultrasound 12/10/16 1504 Signed Impressions: Service Date/Time: Saturday, December 10, 2016 15:21 - CONCLUSION: 1. The liver appears prominent and heterogeneous with lobular contours which could indicate underlying cirrhosis. 2. Apparent mild gallbladder wall thickening no evidence of cholelithiasis. 3. The common bile duct is at the upper limits of normal in size. Sergio Haro MD Breast Ultrasound 12/10/16 0000 Signed Impressions: Service Date/Time: Saturday, December 10, 2016 13:43 - CONCLUSION: Ill- defined hypoechoic area below the nipple with surrounding edema. The finding is nonspecific and could represent hemorrhage, fluid or infection. Sergio Haro MD Objective Remarks GENERAL: Alert, NAD. SKIN: Warm and dry. Large indurated area over left breast. HEAD: Normocephalic. EYES: No scleral icterus. No injection or drainage. NECK: Supple, trachea midline. No JVD or lymphadenopathy. CARDIOVASCULAR: Regular rate and rhythm without murmurs, gallops, or rubs. RESPIRATORY: Breath sounds equal bilaterally. No accessory muscle use. GASTROINTESTINAL: Abdomen soft, non-tender, nondistended. MUSCULOSKELETAL: No cyanosis. There is mild edema on upper extremities especially on the right side. BACK: Nontender without obvious deformity. No CVA tenderness. Procedures Transthoracic echocardiogram 12/12/2016 Poor echocardiographic windows Normal LV dimensions Normal LV systolic dysfunction estimated EF 60% There is moderate severe tricuspid regurgitation. There an echogenic linear structure in the RV please correlate clinically Vegetation cannot be excluded The estimated pulmonary arterial pressure is 33 mmHg. A/P Problem List: (1) Severe sepsis ICD Code: A41.9 - Sepsis, unspecified organism; R65.20 - Severe sepsis without septic shock (2) Cellulitis of left breast ICD Code: N61.0 - Mastitis without abscess (3) HARVEY (acute kidney injury) ICD Code: N17.9 - Acute kidney failure, unspecified (4) Hypokalemia ICD Code: E87.6 - Hypokalemia Status: Acute Assessment and Plan Ms. Dailey is a 71-year-old female with a history of hypertension, hyperlipidemia, CAD, CHF, diabetes mellitus who presented to the emergency department today for an evaluation of her altered mental status. Daughters noted that patient was easily agitated and not herself since yesterday 12/09/2016. Patient was evaluated in the emergency department on 2016 for left breast swelling and pain. Patient was discharged with clindamycin and Tylenol 3 in the previous visit. On arrival to the patient has leukocytosis, fever, lactic acid 3.5. She also was found to have acute kidney injury. 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 Pt is allergic to PCN. Currently on Cefazolin 1g Q12hrs. - Left breast ultrasound and gallbladder ultrasound reports reviewed. Left breast finding is concerning for hemorrhage, fluid or infection. - Infectious disease following. - Patient refused BORIS. EP and Cardiothoracic surgery following - device, lead extraction 12/18/2016. - WBC improved from 31.6K ==> 13.3K --> 10.7. - Blood culture from 12/17/2016 No growth to date. - INR 1.5 - Acute kidney injury, improving. - Baseline creatinine 0.99 on 11/28/2016. Creatinine on admission 1.49 --> 2.32 --> 2.69 --> 2.05 --> 1.28. - Renal function impairment maybe related to Vancomycin. Renal function improving. - Hypertension - CAD status post previous stent placements. - Ischemic cardiomyopathy - status post AICD placement about 2 years ago. - Systolic chronic congestive heart failure - Ejection fraction in 2015 was 10-15%. - Continue amlodipine 5 mg with holding parameters. - Hold HUMBLE inhibitor for now. - Continue metoprolol succinate 50 mg daily with holding parameters. - Hold diuretics. Hypotension - Patient's blood pressure has been on the lower side with systolic in the upper 80s. Patient is asymptomatic. - Will give her one time NS 500cc bolus. - History of DVT - Currently on Warfarin. INR 1.5 Full code. Warfarin Discussed with ANGEL. Chayo Anthony DO Dec 19, 2016 14:03
--- NOTE | 2016-12-19 15:22 | PD.CAR.PN ---
CVT Progress Note Subjective/Hospital Course: Preoperative Diagnosis: (1) AICD generator infection (2) Aicd lead infection (3) Cellulitis of left breast (4) Severe sepsis Procedure: 12/18 Removal of AICD and laser extraction of leads (2) 12/19 marcos drain left axilla / drained 70cc bloody drainage in 12 hrs left breast cellulitis improving pt needs mobilization removal of ellis cath Objective: GENERAL: SKIN: Warm and dry. left breast cellulitis improving slowly MARCOS drain n place/ drained 70cc/ 12 hrs HEAD: Normocephalic. EYES: No scleral icterus. No injection or drainage. NECK: Supple, trachea midline. No JVD or lymphadenopathy. CARDIOVASCULAR: Regular rate and rhythm without murmurs, gallops, or rubs. RESPIRATORY: Breath sounds equal bilaterally. No accessory muscle use. GASTROINTESTINAL: Abdomen soft, non-tender, nondistended. MUSCULOSKELETAL: No cyanosis, or edema. BACK: Nontender without obvious deformity. No CVA tenderness. Vital Signs Date Time Temp Pulse Resp B/P (MAP) Pulse Ox O2 Delivery O2 Flow Rate FiO2 12/19/16 14:04 103/50 (67) 12/19/16 12:00 97.2 56 16 86/52 (63) 95 12/19/16 09:27 Nasal Cannula 2.00 12/19/16 08:00 97.1 59 16 99/54 (69) 99 12/19/16 05:07 94.8 66 18 128/61 (83) 100 12/18/16 23:40 94.3 60 18 117/59 (78) 95 12/18/16 20:50 94.6 66 18 124/59 (80) 95 12/18/16 20:00 Nasal Cannula 4.00 12/18/16 19:30 60 16 135/60 (85) 95 Nasal Cannula 4 12/18/16 19:15 61 18 133/61 (85) 95 Nasal Cannula 4 12/18/16 19:00 56 20 140/65 (90) 92 Nasal Cannula 4 12/18/16 18:45 59 20 137/63 (87) 92 Nasal Cannula 4 12/18/16 18:30 65 20 128/59 (82) 96 Nasal Cannula 4 143/63 (89) 12/18/16 18:15 63 20 109/59 (76) 92 Nasal Cannula 4 127/53 (77) 12/18/16 18:00 66 20 110/63 (79) 94 Nasal Cannula 4 127/63 (84) 12/18/16 17:45 71 20 123/79 (94) 92 Nasal Cannula 4 135/66 (89) 12/18/16 17:38 98.0 79 20 114/82 (93) 96 Simple Mask 12/18/16 17:37 92 21 Result Diagram: 12/16/16 1236 12/16/16 1505 (1) Severe sepsis Plan: Removal of AICD and laser extraction of leads (2) leave MARCOS drain in today eval for removal in am Sondra Farias Dec 19, 2016 15:22
[2016-12-19] MEDS ORDERED: SODIUM CHLORID 0.9% 500 ML INJ 500 ML IV ONE (17:30)
[2016-12-20 04:30] VITALS: BP 112/55; PULSE 60; RESP 16; TEMP 97.3; O2SAT 92
[2016-12-20 08:00] VITALS: BP 98/53; PULSE 55; PULSE 69; RESP 18; TEMP 97.2; O2SAT 95
[2016-12-20 08:20] LABS: BICARBONATE 21.3 MEQ/L (21.0-32.0); POTASSIUM 5.7 MEQ/L (3.5-5.1)
[2016-12-20 08:51] LABS: CALCIUM-PROTEIN CORRECTED 8.1 MG/DL (8.5-10.1)
[2016-12-20] MEDS: amLODIPine BESYLATE 5 MG TAB PO SCH (09:00)
[2016-12-20] MEDS: AMIODARONE 200 MG TAB PO SCH (09:00)
[2016-12-20] MEDS: SODIUM CHLORIDE 0.9% FLUSH 10 ML FLUSH IV FLUSH SCH ×2 (09:00→21:44)
[2016-12-20] MEDS: DOCUSATE SODIUM 50 MG/SENNA 8.6 MG TAB PO SCH ×2 (09:00→21:00)
[2016-12-20] MEDS: METOPROLOL SUCCINATE 50 MG EXTENDED RELEASE TAB PO SCH (09:00)
[2016-12-20] MEDS ORDERED: DEXTROSE 50% IN WATER 50 ML VIAL(D50) IV PUSH ONE (09:45)
[2016-12-20] MEDS ORDERED: CALCIUM GLUCONATE 10% 1 GM/10 ML VIAL IV ONE (09:45)
[2016-12-20] MEDS ORDERED: INSULIN HUMAN REGULAR 1,000 UNITS/10 ML VIAL IV PUSH ONE (09:45)
[2016-12-20] MEDS ORDERED: RESP: ALBUTEROL CONC 2.5 MG/0.5 ML NEB INH ONE (09:45)
[2016-12-20] MEDS ORDERED: SODIUM POLYSTYRENE SULFONATE SUSP 15 GM/60 ML CUP PO ONE (09:45)
--- NOTE | 2016-12-20 10:02 | PD.CAR.PN ---
CVT Progress Note Subjective/Hospital Course: (1) AICD generator infection (2) Aicd lead infection (3) Cellulitis of left breast (4) Severe sepsis Procedure: 12/18 Removal of AICD and laser extraction of leads (2) 12/19 marcos drain left axilla / drained 70cc bloody drainage in 12 hrs left breast cellulitis improving pt needs mobilization removal of ellis cath 12/20 marcos drained 70cc bloody drainage in 12 hrs will leave drain in for now, left upper chest incision intact and well approximated left breast cellulitis improving ellis cath removed yesterday Objective: GENERAL: SKIN: Warm and dry. dressing removed from left uppper chest, incision intact and well approximated, MARCOS drain in place / primed and draining bloody serous drainage HEAD: Normocephalic. EYES: No scleral icterus. No injection or drainage. NECK: Supple, trachea midline. No JVD or lymphadenopathy. CARDIOVASCULAR: Regular rate and rhythm without murmurs, gallops, or rubs. RESPIRATORY: Breath sounds equal bilaterally. No accessory muscle use. GASTROINTESTINAL: Abdomen soft, non-tender, nondistended. MUSCULOSKELETAL: No cyanosis, or edema. BACK: Nontender without obvious deformity. No CVA tenderness. Vital Signs Date Time Temp Pulse Resp B/P (MAP) Pulse Ox O2 Delivery O2 Flow Rate FiO2 12/20/16 08:00 97.2 69 18 98/53 (68) 95 12/20/16 04:30 97.3 60 16 112/55 (74) 92 12/19/16 23:49 97.5 57 16 96/53 (67) 93 12/19/16 20:17 97.2 58 14 109/53 (71) 97 Arterial Line 12/19/16 20:00 Nasal Cannula 2.00 12/19/16 18:20 104/52 (69) 12/19/16 17:37 95 Nasal Cannula 4.00 12/19/16 16:00 97.2 54 18 88/44 (59) 96 12/19/16 14:04 103/50 (67) 12/19/16 12:00 97.2 56 16 86/52 (63) 95 Labs: Laboratory Tests Test 12/20/16 06:23 Blood Urea Nitrogen 28 MG/DL (7-18) Creatinine 1.85 MG/DL (0.50-1.00) Random Glucose 93 MG/DL (74-106) Total Protein 5.6 GM/DL (6.4-8.2) Calcium Level 7.3 MG/DL (8.5-10.1) Sodium Level 140 MEQ/L (136-145) Potassium Level 5.7 MEQ/L (3.5-5.1) Chloride Level 110 MEQ/L (98-107) Carbon Dioxide Level 21.3 MEQ/L (21.0-32.0) Anion Gap 9 MEQ/L (5-15) Estimat Glomerular Filtration Rate 33 ML/MIN (>89) Protein Corrected Calcium 8.1 MG/DL (8.5-10.1) Result Diagram: 12/16/16 1236 12/20/16 0623 Telemetry: NSR (1) Severe sepsis Plan: Removal of AICD and laser extraction of leads (2) left breast cellulitis improving leave MARCOS drain in today Sondra Farias Dec 20, 2016 10:02
[2016-12-20 10:44] VITALS: O2SAT 92
--- NOTE | 2016-12-20 11:39 | HHI.PR ---
Subjective Remarks Follow-up for AICD related device infection, bacteremia. Patient is doing well. Granddaughter is at bedside. Patient denies any chest pain, shortness of breath, fever or chills. Objective Vitals Vital Signs Date Time Temp Pulse Resp B/P (MAP) Pulse Ox O2 Delivery O2 Flow Rate FiO2 12/20/16 08:00 97.2 69 18 98/53 (68) 95 12/20/16 04:30 97.3 60 16 112/55 (74) 92 12/19/16 23:49 97.5 57 16 96/53 (67) 93 12/19/16 20:17 97.2 58 14 109/53 (71) 97 Arterial Line 12/19/16 20:00 Nasal Cannula 2.00 12/19/16 18:20 104/52 (69) 12/19/16 17:37 95 Nasal Cannula 4.00 12/19/16 16:00 97.2 54 18 88/44 (59) 96 12/19/16 14:04 103/50 (67) 12/19/16 12:00 97.2 56 16 86/52 (63) 95 I/O 12/19/16 12/19/16 12/19/16 12/20/16 12/20/16 12/20/16 07:00 15:00 23:00 07:00 15:00 23:00 Intake Total 0 ml 960 ml 300 ml Output Total 150 ml 70 ml 100 ml 20 ml Balance -150 ml -70 ml 860 ml 280 ml Intake Oral 0 ml 360 ml 200 ml IV Total 600 ml 100 ml Output Urine Total 150 ml 50 ml Drainage Total 70 ml 50 ml 20 ml # Voids 0 # Bowel Movements 0 0 1 Result Diagram: 12/16/16 1236 12/20/16 0623 Imaging Last Impressions Chest X-Ray 12/18/16 0000 Signed Impressions: Service Date/Time: Sunday, December 18, 2016 17:54 - CONCLUSION: 1. Apparent interval removal of the left subclavian bipolar pacer/defibrillator. 2. No pneumothorax. 3. Cardiomegaly with interstitial prominence, bilateral airspace disease and effusions are characteristic of failure. Mt Alvarez MD Gall Bladder Ultrasound 12/10/16 1504 Signed Impressions: Service Date/Time: Saturday, December 10, 2016 15:21 - CONCLUSION: 1. The liver appears prominent and heterogeneous with lobular contours which could indicate underlying cirrhosis. 2. Apparent mild gallbladder wall thickening no evidence of cholelithiasis. 3. The common bile duct is at the upper limits of normal in size. Sergio Haro MD Breast Ultrasound 12/10/16 0000 Signed Impressions: Service Date/Time: Saturday, December 10, 2016 13:43 - CONCLUSION: Ill- defined hypoechoic area below the nipple with surrounding edema. The finding is nonspecific and could represent hemorrhage, fluid or infection. Sergio Haro MD Objective Remarks GENERAL: Alert, NAD. SKIN: Warm and dry. Large indurated area over left breast. HEAD: Normocephalic. EYES: No scleral icterus. No injection or drainage. NECK: Supple, trachea midline. No JVD or lymphadenopathy. CARDIOVASCULAR: Regular rate and rhythm without murmurs, gallops, or rubs. RESPIRATORY: Breath sounds equal bilaterally. No accessory muscle use. GASTROINTESTINAL: Abdomen soft, non-tender, nondistended. MUSCULOSKELETAL: No cyanosis. There is mild edema on upper extremities especially on the right side. BACK: Nontender without obvious deformity. No CVA tenderness. Procedures Transthoracic echocardiogram 12/12/2016 Poor echocardiographic windows Normal LV dimensions Normal LV systolic dysfunction estimated EF 60% There is moderate severe tricuspid regurgitation. There an echogenic linear structure in the RV please correlate clinically Vegetation cannot be excluded The estimated pulmonary arterial pressure is 33 mmHg. A/P Problem List: (1) Severe sepsis ICD Code: A41.9 - Sepsis, unspecified organism; R65.20 - Severe sepsis without septic shock (2) Cellulitis of left breast ICD Code: N61.0 - Mastitis without abscess (3) HARVEY (acute kidney injury) ICD Code: N17.9 - Acute kidney failure, unspecified (4) Hyperkalemia ICD Code: E87.5 - Hyperkalemia Assessment and Plan Ms. Dailey is a 71-year-old female with a history of hypertension, hyperlipidemia, CAD, CHF, diabetes mellitus who presented to the emergency department today for an evaluation of her altered mental status. Daughters noted that patient was easily agitated and not herself since yesterday 12/09/2016. Patient was evaluated in the emergency department on 2016 for left breast swelling and pain. Patient was discharged with clindamycin and Tylenol 3 in the previous visit. On arrival to the patient has leukocytosis, fever, lactic acid 3.5. She also was found to have acute kidney injury. 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 Pt is allergic to PCN. Currently on Cefazolin 1g Q12hrs. - Left breast ultrasound and gallbladder ultrasound reports reviewed. Left breast finding is concerning for hemorrhage, fluid or infection. - Infectious disease following. - Patient refused BORIS. EP and Cardiothoracic surgery following - device, lead extraction 12/18/2016. - WBC improved from 31.6K ==> 13.3K --> 10.7. - Blood culture from 12/17/2016 No growth to date. - INR 1.5. Will start back on Warfarin today - Acute kidney injury - Baseline creatinine 0.99 on 11/28/2016. Creatinine on admission 1.49 --> 2.32 --> 2.69 --> 2.05 --> 1.28 --> 1.85 on 12/20 - Hyperkalemia - K+ 5.7. Will give 1 g of Calcium Gluconate, Albuterol, insulin, D50 and Kayexalate. - Check BMP in the PM - Hypertension - CAD status post previous stent placements. - Ischemic cardiomyopathy - status post AICD placement about 2 years ago. - Systolic chronic congestive heart failure - Ejection fraction in 2014 was 10-15%. - Continue amlodipine 5 mg with holding parameters. - Hold HUMBLE inhibitor for now. - Continue metoprolol succinate 50 mg daily with holding parameters. - Hold diuretics. - History of DVT - Currently on Warfarin. INR 1.5 Full code. Restart Warfarin today. Chayo Anthony DO Dec 20, 2016 11:39 am
[2016-12-20 12:00] VITALS: BP 108/52; PULSE 59; RESP 18; TEMP 97.3; O2SAT 94
[2016-12-20] MEDS ORDERED: DEXTROSE 50% IN WATER 50 ML SYRINGE IV PUSH ONE (13:00)
[2016-12-20] MEDS: CALCIUM GLUCONATE INJ 1 GM in SODIUM CHLORIDE 0.9% INJ 100 ML IV ONE ×2 (13:05→15:20)
[2016-12-20 16:00] VITALS: BP 94/51; PULSE 57; RESP 18; TEMP 96.8; O2SAT 100
[2016-12-20] MEDS: WARFARIN SOD 4 MG TAB PO SCH (17:44)
[2016-12-20 20:00] VITALS: BP 112/57; PULSE 68; PULSE 73; RESP 21; TEMP 97.4; O2SAT 93
[2016-12-21] VITALS (9 sets, daily range): BP systolic 111–157; BP diastolic 55–69; PULSE 43–80; RESP 16–20; TEMP 97.2–97.7; O2SAT 90–99
[2016-12-21 08:17] LABS: POTASSIUM 3.9 MEQ/L (3.5-5.1)
[2016-12-21] MEDS: AMIODARONE 200 MG TAB PO SCH (08:48)
[2016-12-21] MEDS: DOCUSATE SODIUM 50 MG/SENNA 8.6 MG TAB PO SCH ×2 (08:48→20:19)
[2016-12-21] MEDS: METOPROLOL SUCCINATE 50 MG EXTENDED RELEASE TAB PO SCH (08:48)
[2016-12-21] MEDS: amLODIPine BESYLATE 5 MG TAB PO SCH (08:48)
[2016-12-21] MEDS: SODIUM CHLORIDE 0.9% FLUSH 10 ML FLUSH IV FLUSH SCH ×2 (08:49→20:19)
--- NOTE | 2016-12-21 10:27 | HHI.PR ---
Subjective Remarks Follow-up for AICD related device infection, bacteremia. Patient is doing well. She has some upper ext swelling. Denies any chest pain, SOB, fever, chills. Objective Vitals Vital Signs Date Time Temp Pulse Resp B/P (MAP) Pulse Ox O2 Delivery O2 Flow Rate FiO2 12/21/16 08:00 97.3 80 20 139/64 (89) 98 12/21/16 04:00 97.5 73 18 111/55 (73) 91 12/21/16 00:00 97.2 73 16 113/57 (75) 90 12/20/16 20:00 Nasal Cannula 2.00 12/20/16 20:00 68 12/20/16 20:00 97.4 73 21 112/57 (75) 93 12/20/16 16:00 96.8 57 18 94/51 (65) 100 12/20/16 12:00 97.3 59 18 108/52 (70) 94 12/20/16 10:44 92 Nasal Cannula 2.00 I/O 12/20/16 12/20/16 12/20/16 12/21/16 12/21/16 12/21/16 07:00 15:00 23:00 07:00 15:00 23:00 Intake Total 300 ml 1410 ml 100 ml Output Total 20 ml 20 ml 230 ml Balance 280 ml 1390 ml -130 ml Intake Oral 200 ml 1200 ml IV Total 100 ml 210 ml 100 ml Output Urine Total 200 ml Drainage Total 20 ml 20 ml 30 ml # Voids 0 2 # Bowel Movements 1 1 Result Diagram: 12/21/16 0610 Imaging Last Impressions Chest X-Ray 12/18/16 0000 Signed Impressions: Service Date/Time: Sunday, December 18, 2016 17:54 - CONCLUSION: 1. Apparent interval removal of the left subclavian bipolar pacer/defibrillator. 2. No pneumothorax. 3. Cardiomegaly with interstitial prominence, bilateral airspace disease and effusions are characteristic of failure. Mt Alvarez MD Gall Bladder Ultrasound 12/10/16 1504 Signed Impressions: Service Date/Time: Saturday, December 10, 2016 15:21 - CONCLUSION: 1. The liver appears prominent and heterogeneous with lobular contours which could indicate underlying cirrhosis. 2. Apparent mild gallbladder wall thickening no evidence of cholelithiasis. 3. The common bile duct is at the upper limits of normal in size. Sergio Haro MD Breast Ultrasound 12/10/16 0000 Signed Impressions: Service Date/Time: Saturday, December 10, 2016 13:43 - CONCLUSION: Ill- defined hypoechoic area below the nipple with surrounding edema. The finding is nonspecific and could represent hemorrhage, fluid or infection. Sergio Haro MD Objective Remarks GENERAL: Alert, NAD. SKIN: Warm and dry. Large indurated area over left breast. HEAD: Normocephalic. EYES: No scleral icterus. No injection or drainage. NECK: Supple, trachea midline. No JVD or lymphadenopathy. CARDIOVASCULAR: Regular rate and rhythm without murmurs, gallops, or rubs. RESPIRATORY: Breath sounds equal bilaterally. No accessory muscle use. GASTROINTESTINAL: Abdomen soft, non-tender, nondistended. MUSCULOSKELETAL: No cyanosis. There is mild edema on upper extremities especially on the right side. BACK: Nontender without obvious deformity. No CVA tenderness. Procedures Transthoracic echocardiogram 12/12/2016 Poor echocardiographic windows Normal LV dimensions Normal LV systolic dysfunction estimated EF 60% There is moderate severe tricuspid regurgitation. There an echogenic linear structure in the RV please correlate clinically Vegetation cannot be excluded The estimated pulmonary arterial pressure is 33 mmHg. A/P Problem List: (1) Severe sepsis ICD Code: A41.9 - Sepsis, unspecified organism; R65.20 - Severe sepsis without septic shock (2) Cellulitis of left breast ICD Code: N61.0 - Mastitis without abscess (3) HARVEY (acute kidney injury) ICD Code: N17.9 - Acute kidney failure, unspecified (4) Hyperkalemia ICD Code: E87.5 - Hyperkalemia Assessment and Plan Ms. Dailey is a 71-year-old female with a history of hypertension, hyperlipidemia, CAD, CHF, diabetes mellitus who presented to the emergency department today for an evaluation of her altered mental status. Daughters noted that patient was easily agitated and not herself since yesterday 12/09/2016. Patient was evaluated in the emergency department on 2016 for left breast swelling and pain. Patient was discharged with clindamycin and Tylenol 3 in the previous visit. On arrival to the patient has leukocytosis, fever, lactic acid 3.5. She also was found to have acute kidney injury. 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 Pt is allergic to PCN. Currently on Cefazolin 1g Q12hrs. - Left breast ultrasound and gallbladder ultrasound reports reviewed. Left breast finding is concerning for hemorrhage, fluid or infection. - Infectious disease following. - Patient refused BORIS. EP and Cardiothoracic surgery following - device, lead extraction 12/18/2016. - WBC improved from 31.6K ==> 13.3K --> 10.7. - Blood culture from 12/17/2016 No growth to date. - PT/INR pending this morning. - Acute kidney injury - Baseline creatinine 0.99 on 11/28/2016. Creatinine on admission 1.49 ==> 2.04 on 12.21.2016. - Could possibly be related to cardiorenal syndrome - Will give 1mg bumex today and continue 1mg Bumex IV BID for 3 days. - If creatinine continues to worsen, we will consult Nephrology. - Hyperkalemia - K+ 5.7 ==> 3.9. Resolved. - Hypertension - CAD status post previous stent placements. - Ischemic cardiomyopathy - status post AICD placement about 2 years ago. - Systolic chronic congestive heart failure - Ejection fraction in 2015 was 10-15%. - Continue amlodipine 5 mg with holding parameters. - Hold HUMBLE inhibitor for now. - Continue metoprolol succinate 50 mg daily with holding parameters. - Will start Bumex 1mg IV BID. Monitor K+, Creatinine. - will discuss with Cardiology regarding possible need for LifeVest. It may not be necessary since ischemic cardiomyopathy is not new. - History of DVT - Currently on Warfarin. INR pending today. Full code. Warfarin. discussed with Chayo Camacho DO Dec 21, 2016 10:27 am
[2016-12-21] MEDS ORDERED: BUMETANIDE INJ 1 MG/4 ML VIAL IV PUSH ONE (10:30)
--- NOTE | 2016-12-21 15:03 | HHI.PR ---
Addendum to Inpatient Note Additional Information Full note to follow Pt seen today around 1430 co L breast pain and b/l hands eedema no fever repeat BC negatoive @ 4 days + drain in palce with serosang d/c Darleen Tamayo MD Dec 21, 2016 15:03
[2016-12-21] MEDS: BUMETANIDE INJ 1 MG/4 ML VIAL IV PUSH SCH (17:42)
[2016-12-21] MEDS: WARFARIN SOD 4 MG TAB PO SCH (17:42)
[2016-12-21] MEDS: ACETAMINOPHEN 325 MG TAB PO PRN (20:18)
--- NOTE | 2016-12-21 22:28 | HHI.IDPN ---
Subjective Subjective Remarks delayed entgry Pt seen today around 1430 co L breast pain and b/l hands edema no fever repeat BC negatoive @ 4 days Antibiotics cefazoline Allergies: Coded Allergies: penicillin G (Unverified Allergy, Severe, rash, 11/28/16) benazepril (Unverified Allergy, Mild, 11/28/16) HUMBLE inhibitor angioedema, swelling of the face lips and anterior tongue captopril (Unverified Allergy, Mild, 11/28/16) HUMBLE inhibitor angioedema, swelling of the face lips and anterior tongue enalaprilat (Unverified Allergy, Mild, 11/28/16) HUMBLE inhibitor angioedema, swelling of the face lips and anterior tongue fosinopril (Unverified Allergy, Mild, 11/28/16) HUMBLE inhibitor angioedema, swelling of the face lips and anterior tongue lisinopril (Unverified Allergy, Mild, 11/28/16) HUMBLE inhibitor angioedema, swelling of the face lips and anterior tongue quinapril (Unverified Allergy, Mild, 11/28/16) HUMBLE inhibitor angioedema, swelling of the face lips and anterior tongue Uncoded Allergies: NON COMPATIBLE PACEMAKER (Adverse Reaction, Severe, MRI PRECAUTION / PACEMAKER, 11/03/14) MRI PRECAUTION. PACEMAKER Objective . Vital Signs Date Time Temp Pulse Resp B/P (MAP) Pulse Ox O2 Delivery O2 Flow Rate FiO2 12/21/16 20:00 Nasal Cannula 2.00 12/21/16 20:00 43 12/21/16 20:00 97.4 65 18 142/56 (84) 99 12/21/16 16:00 97.4 68 20 157/67 (97) 97 12/21/16 11:57 97.3 74 20 131/64 (86) 93 12/21/16 09:15 93 Nasal Cannula 3.00 12/21/16 08:00 Nasal Cannula 2.00 12/21/16 08:00 97.3 80 20 139/64 (89) 98 12/21/16 07:47 79 12/21/16 04:00 97.5 73 18 111/55 (73) 91 12/21/16 00:00 97.2 73 16 113/57 (75) 90 12/21/16 12/21/16 12/22/16 15:00 23:00 07:00 Output Total 40 ml 400 ml Balance -40 ml -400 ml Output Urine Total 400 ml Drainage Total 40 ml # Bowel Movements 1 . Laboratory Tests Test 12/20/16 06:23 12/21/16 06:10 Blood Urea Nitrogen 28 MG/DL 31 MG/DL Creatinine 1.85 MG/DL 2.04 MG/DL Random Glucose 93 MG/DL 97 MG/DL Total Protein 5.6 GM/DL Calcium Level 7.3 MG/DL 8.1 MG/DL Sodium Level 140 MEQ/L 140 MEQ/L Potassium Level 5.7 MEQ/L 3.9 MEQ/L Chloride Level 110 MEQ/L 108 MEQ/L Carbon Dioxide Level 21.3 MEQ/L 22.0 MEQ/L Anion Gap 9 MEQ/L 10 MEQ/L Estimat Glomerular Filtration Rate 33 ML/MIN 29 ML/MIN Protein Corrected Calcium 8.1 MG/DL Imaging Last Im Last Impressions Chest X-Ray 12/18/16 0000 Signed Impressions: Service Date/Time: Sunday, December 18, 2016 17:54 - CONCLUSION: 1. Apparent interval removal of the left subclavian bipolar pacer/defibrillator. 2. No pneumothorax. 3. Cardiomegaly with interstitial prominence, bilateral airspace disease and effusions are characteristic of failure. Mt Alvarez MD Gall Bladder Ultrasound 12/10/16 1504 Signed Impressions: Service Date/Time: Saturday, December 10, 2016 15:21 - CONCLUSION: 1. The liver appears prominent and heterogeneous with lobular contours which could indicate underlying cirrhosis. 2. Apparent mild gallbladder wall thickening no evidence of cholelithiasis. 3. The common bile duct is at the upper limits of normal in size. Sergio Haro MD Breast Ultrasound 12/10/16 0000 Signed Impressions: Service Date/Time: Saturday, December 10, 2016 13:43 - CONCLUSION: Ill- defined hypoechoic area below the nipple with surrounding edema. The finding is nonspecific and could represent hemorrhage, fluid or infection. Sergio Haro MD Physical Exam CONSTITUTIONAL/GENERAL: This is an adequately nourished patient, in no apparent distress. TUBES/LINES/DRAINS: SKIN: No jaundice, rashes, or lesions. Skin temperature appropriate. Not diaphoretic. CARDIOVASCULAR: Regular rate and rhythm without murmurs, gallops, or rubs. No JVD. Peripheral pulses symmetric. + drain in place L chest with serosang d/c large intqact dressing L ches RESPIRATORY/CHEST: Symmetric, unlabored respirations. Clear to auscultation. Breath sounds equal bilaterally. No wheezes, rales, or rhonchi. GASTROINTESTINAL: Abdomen soft, non-tender, nondistended. No hepato-splenomegaly , or palpable masses. No guarding. Bowel sounds present. GENITOURINARY: Without palpable bladder distension. MUSCULOSKELETAL: Extremities without clubbing, cyanosis, or edema. BLE with prominent varices NEUROLOGICAL: awake, alert, talkative PSYCHIATRIC: calm and cooperative Assessment & Plan Remarks High grade MSSA bacteremia and L chest edema aw pacer - probable pacer infection/endocarditis refused BORIS sp pacer extractin with leads High grade PCN allergy: hives, tolearting [place] cefepime New issu: HARVEY - resolved - eosinophils negative Pt is getting better Recs: cont cefazoline, increase dosing for improving GFR Discussed Condition With Darleen Abad MD Dec 21, 2016 22:28
[2016-12-22] VITALS (9 sets, daily range): BP systolic 122–154; BP diastolic 58–65; PULSE 38–72; RESP 18–22; TEMP 97.1–97.6; O2SAT 91–100
[2016-12-22 08:08] LABS: INTERNATIONAL NORMALIZED RATIO 1.4 RATIO; PROTHROMBIN TIME - PATIENT 15.7 SEC (9.8-11.6)
[2016-12-22 08:21] LABS: AUTOMATED NEUTROPHIL # 4.5 TH/MM3 (1.8-7.7); BASOPHIL # 0.1 TH/MM3 (0-0.2); BASOPHIL % 0.9 % (0.0-2.0); EOSINOPHIL # 0.1 TH/MM3 (0-0.4); EOSINOPHIL % 1.3 % (0.0-4.0); HEMATOCRIT 22.3 % (35.0-46.0); LYMPH % 11.9 % (9.0-44.0); LYMPHOCYTE # 0.7 TH/MM3 (1.0-4.8); MEAN CELL VOLUME 72.3 FL (80.0-100.0); MEAN CORPUSCULAR HEMOGLOBIN 22.3 PG (27.0-34.0); MEAN CORPUSCULAR HGB CONC 30.9 % (32.0-36.0); MONO % 13.7 % (0.0-8.0); NEUT % 72.2 % (16.0-70.0); PLATELET COUNT 285 TH/MM3 (150-450); RED BLOOD COUNT 3.09 MIL/MM3 (4.00-5.30); RED CELL DISTRIBUTION WIDTH 25.5 % (11.6-17.2); WHITE BLOOD COUNT 6.2 TH/MM3 (4.0-11.0)
[2016-12-22 08:28] LABS: HEMO FLAGS AUTO DIFF
[2016-12-22] MEDS: amLODIPine BESYLATE 5 MG TAB PO SCH (08:54)
[2016-12-22] MEDS: METOPROLOL SUCCINATE 50 MG EXTENDED RELEASE TAB PO SCH (08:54)
[2016-12-22] MEDS: BUMETANIDE INJ 1 MG/4 ML VIAL IV PUSH SCH ×2 (08:54→17:29)
[2016-12-22] MEDS: DOCUSATE SODIUM 50 MG/SENNA 8.6 MG TAB PO SCH ×2 (08:54→20:57)
[2016-12-22] MEDS: AMIODARONE 200 MG TAB PO SCH (08:54)
[2016-12-22] MEDS: SODIUM CHLORIDE 0.9% FLUSH 10 ML FLUSH IV FLUSH SCH ×2 (08:55→20:57)
[2016-12-22 09:10] LABS: SCAN/DIFF AUTO DIFF CONFIRMED
--- NOTE | 2016-12-22 10:36 | HHI.PR ---
Subjective Remarks Follow-up for AICD related device infection, bacteremia. Patient is currently doing well. Denies any chest pain, shortness of breath, fever or chills. After discussing with cardiothoracic surgeon Dr. Tim, right sided IJ line was pulled. Also patient's hemoglobin was reported 6.9 this morning. Patient denies any lightheadedness, dizziness. Objective Vitals Vital Signs Date Time Temp Pulse Resp B/P (MAP) Pulse Ox O2 Delivery O2 Flow Rate FiO2 12/22/16 08:00 97.5 71 22 124/60 (81) 91 12/22/16 04:00 Nasal Cannula 2.00 12/22/16 04:00 97.6 68 18 126/58 (80) 94 12/22/16 00:00 Nasal Cannula 2.00 12/21/16 22:00 97.7 68 18 131/69 (89) 96 12/21/16 20:00 Nasal Cannula 2.00 12/21/16 20:00 43 12/21/16 20:00 97.4 65 18 142/56 (84) 99 12/21/16 16:00 97.4 68 20 157/67 (97) 97 12/21/16 11:57 97.3 74 20 131/64 (86) 93 I/O 12/21/16 12/21/16 12/21/16 12/22/16 12/22/16 12/22/16 07:00 15:00 23:00 07:00 15:00 23:00 Intake Total 100 ml 480 ml Output Total 230 ml 40 ml 400 ml 1325 ml Balance -130 ml -40 ml -400 ml -845 ml Intake Oral 480 ml IV Total 100 ml Output Urine Total 200 ml 400 ml 1325 ml Drainage Total 30 ml 40 ml # Bowel Movements 1 0 Result Diagram: 12/22/16 0722 12/21/16 0610 Imaging Last Impressions Chest X-Ray 12/18/16 0000 Signed Impressions: Service Date/Time: Sunday, December 18, 2016 17:54 - CONCLUSION: 1. Apparent interval removal of the left subclavian bipolar pacer/defibrillator. 2. No pneumothorax. 3. Cardiomegaly with interstitial prominence, bilateral airspace disease and effusions are characteristic of failure. Mt Alvarez MD Gall Bladder Ultrasound 12/10/16 1504 Signed Impressions: Service Date/Time: Saturday, December 10, 2016 15:21 - CONCLUSION: 1. The liver appears prominent and heterogeneous with lobular contours which could indicate underlying cirrhosis. 2. Apparent mild gallbladder wall thickening no evidence of cholelithiasis. 3. The common bile duct is at the upper limits of normal in size. Sergio Haro MD Breast Ultrasound 12/10/16 0000 Signed Impressions: Service Date/Time: Saturday, December 10, 2016 13:43 - CONCLUSION: Ill- defined hypoechoic area below the nipple with surrounding edema. The finding is nonspecific and could represent hemorrhage, fluid or infection. Segrio Haro MD Objective Remarks GENERAL: Alert, NAD. SKIN: Warm and dry. Large indurated area over left breast. HEAD: Normocephalic. EYES: No scleral icterus. No injection or drainage. NECK: Supple, trachea midline. No JVD or lymphadenopathy. CARDIOVASCULAR: Regular rate and rhythm without murmurs, gallops, or rubs. RESPIRATORY: Breath sounds equal bilaterally. No accessory muscle use. GASTROINTESTINAL: Abdomen soft, non-tender, nondistended. MUSCULOSKELETAL: No cyanosis. There is mild edema on upper extremities especially on the right side. BACK: Nontender without obvious deformity. No CVA tenderness. Procedures Transthoracic echocardiogram 12/12/2016 Poor echocardiographic windows Normal LV dimensions Normal LV systolic dysfunction estimated EF 60% There is moderate severe tricuspid regurgitation. There an echogenic linear structure in the RV please correlate clinically Vegetation cannot be excluded The estimated pulmonary arterial pressure is 33 mmHg. A/P Problem List: (1) Severe sepsis ICD Code: A41.9 - Sepsis, unspecified organism; R65.20 - Severe sepsis without septic shock (2) Cellulitis of left breast ICD Code: N61.0 - Mastitis without abscess (3) HARVEY (acute kidney injury) ICD Code: N17.9 - Acute kidney failure, unspecified (4) Hyperkalemia ICD Code: E87.5 - Hyperkalemia Assessment and Plan Ms. Dailey is a 71-year-old female with a history of hypertension, hyperlipidemia, CAD, CHF, diabetes mellitus who presented to the emergency department today for an evaluation of her altered mental status. Daughters noted that patient was easily agitated and not herself since yesterday 12/09/2016. Patient was evaluated in the emergency department on 2016 for left breast swelling and pain. Patient was discharged with clindamycin and Tylenol 3 in the previous visit. On arrival to the patient has leukocytosis, fever, lactic acid 3.5. She also was found to have acute kidney injury. 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 Pt is allergic to PCN. Currently on Cefazolin 1g Q12hrs. - Left breast ultrasound and gallbladder ultrasound reports reviewed. Left breast finding is concerning for hemorrhage, fluid or infection. - Infectious disease following. - Patient refused BORIS. EP and Cardiothoracic surgery following - device, lead extraction 12/18/2016. - WBC improved from 31.6K ==> 13.3K --> 10.7. - Blood culture from 12/17/2016 No growth to date. - INR 1.4 - Right IJ line pulled 12/22/2016. - Anemia - unknown source. - Patient denies any upper or lower GI bleed symptoms including no melena, hematochezia. - Hemoglobin this morning 6.9. We'll repeat hemoglobin and hematocrit. - If repeat hemoglobin also below 7.0, we'll transfuse 1 unit of PRBCs. - Acute kidney injury - Baseline creatinine 0.99 on 11/28/2016. Creatinine on admission 1.49 ==> 2.04 on 12.21.2016. - Could possibly be related to cardiorenal syndrome - Will give 1mg bumex today and continue 1mg Bumex IV BID for 3 days. - If creatinine continues to worsen, we will consult Nephrology. - CBC, BMP in the morning. - Hyperkalemia - K+ 5.7 ==> 3.9. Resolved. - Hypertension - CAD status post previous stent placements. - Ischemic cardiomyopathy - status post AICD placement about 2 years ago. - Systolic chronic congestive heart failure - Ejection fraction in 2015 was 10-15%. - Continue amlodipine 5 mg with holding parameters. - Hold HUMBLE inhibitor for now. - Continue metoprolol succinate 50 mg daily with holding parameters. - Continue Bumex 1mg IV BID. Monitor K+, Creatinine. - will discuss with Cardiology regarding possible need for LifeVest. It may not be necessary since ischemic cardiomyopathy is not new. - History of DVT - Currently on Warfarin. INR pending today. Full code. Warfarin. discussed with RN. Chayo Anthony DO Dec 22, 2016 10:36 am
[2016-12-22] MEDS ORDERED: ACETAMINOPHEN 325 MG TAB PO PRN (10:45)
[2016-12-22] MEDS ORDERED: diphenhydrAMINE HCL 25 MG CAP PO PRN (10:45)
[2016-12-22] MEDS ORDERED: SODIUM CHLOR 0.9% 250 ML INJ 250 ML IV ONE (10:45)
[2016-12-22] MEDS: ACETAMINOPHEN 325 MG TAB PO PRN (11:41)
[2016-12-22 12:45] LABS: HEMATOCRIT 23.4 % (35.0-46.0)
[2016-12-22 12:46] LABS: REVIEW FLAG FINAL
[2016-12-22] MEDS: WARFARIN SOD 5 MG TAB PO SCH (17:30)
[2016-12-23] VITALS (11 sets, daily range): BP systolic 120–157; BP diastolic 61–79; PULSE 60–73; RESP 18–20; TEMP 97.1–98.1; O2SAT 92–99
[2016-12-23] MEDS: SODIUM CHLORIDE 0.9% FLUSH 10 ML FLUSH IV FLUSH SCH ×2 (08:02→21:03)
[2016-12-23] MEDS: METOPROLOL SUCCINATE 50 MG EXTENDED RELEASE TAB PO SCH (08:03)
[2016-12-23] MEDS: amLODIPine BESYLATE 5 MG TAB PO SCH (08:03)
[2016-12-23] MEDS: AMIODARONE 200 MG TAB PO SCH (08:03)
[2016-12-23] MEDS: BUMETANIDE INJ 1 MG/4 ML VIAL IV PUSH SCH ×2 (08:03→18:05)
[2016-12-23] MEDS: ACETAMINOPHEN 325 MG TAB PO PRN ×2 (08:09→15:56)
[2016-12-23] MEDS: DOCUSATE SODIUM 50 MG/SENNA 8.6 MG TAB PO SCH ×2 (08:10→21:00)
[2016-12-23 09:39] LABS: AUTOMATED NEUTROPHIL # 4.8 TH/MM3 (1.8-7.7); BASOPHIL # 0.1 TH/MM3 (0-0.2); BASOPHIL % 1.1 % (0.0-2.0); EOSINOPHIL # 0.1 TH/MM3 (0-0.4); EOSINOPHIL % 1.3 % (0.0-4.0); HEMATOCRIT 22.5 % (35.0-46.0); LYMPH % 11.2 % (9.0-44.0); LYMPHOCYTE # 0.7 TH/MM3 (1.0-4.8); MEAN CELL VOLUME 73.5 FL (80.0-100.0); MEAN CORPUSCULAR HEMOGLOBIN 22.3 PG (27.0-34.0); MEAN CORPUSCULAR HGB CONC 30.4 % (32.0-36.0); MONO % 14.3 % (0.0-8.0); NEUT % 72.1 % (16.0-70.0); PLATELET COUNT 308 TH/MM3 (150-450); RED BLOOD COUNT 3.06 MIL/MM3 (4.00-5.30); RED CELL DISTRIBUTION WIDTH 25.7 % (11.6-17.2); WHITE BLOOD COUNT 6.7 TH/MM3 (4.0-11.0)
[2016-12-23 09:42] LABS: HEMO FLAGS AUTO DIFF
[2016-12-23 10:03] LABS: BICARBONATE 25.2 MEQ/L (21.0-32.0); POTASSIUM 3.8 MEQ/L (3.5-5.1)
[2016-12-23 10:30] LABS: SCAN/DIFF AUTO DIFF CONFIRMED; TARGET CELLS 1+ (NORMAL)
--- NOTE | 2016-12-23 12:22 | HHI.PR ---
Subjective Remarks Follow-up for AICD related device infection, bacteremia. Patient is doing well. Sitting in her chair, no fever, chills. Eating Cheetos. Daughter is at bedside. Objective Vitals Vital Signs Date Time Temp Pulse Resp B/P (MAP) Pulse Ox O2 Delivery O2 Flow Rate FiO2 12/23/16 12:03 97.3 63 18 132/68 (89) 98 12/23/16 11:43 97.3 63 18 129/68 98 12/23/16 08:25 96 21 12/23/16 08:00 98.1 73 18 157/79 (105) 98 12/23/16 04:00 Nasal Cannula 2.00 12/23/16 04:00 97.3 64 18 139/61 (87) 99 12/23/16 00:00 97.1 62 18 131/61 (84) 95 12/23/16 00:00 Nasal Cannula 2.00 12/22/16 22:01 93 Nasal Cannula 3.00 12/22/16 20:00 97.1 62 18 122/60 (80) 100 12/22/16 20:00 59 12/22/16 20:00 Nasal Cannula 2.00 12/22/16 19:45 Nasal Cannula 2.00 12/22/16 16:00 97.4 54 18 147/65 (92) 94 12/22/16 15:33 57 12/22/16 15:33 45 12/22/16 15:33 38 12/22/16 13:10 18 I/O 12/22/16 12/22/16 12/22/16 12/23/16 12/23/16 12/23/16 07:00 15:00 23:00 07:00 15:00 23:00 Intake Total 480 ml 720 ml 470 ml Output Total 1325 ml 880 ml Balance -845 ml -160 ml 470 ml Intake Oral 480 ml 720 ml 470 ml Output Urine Total 1325 ml 800 ml Drainage Total 80 ml # Bowel Movements 0 1 0 Result Diagram: 12/23/16 0715 12/23/1615 Imaging Last Impressions Chest X-Ray 12/18/16 0000 Signed Impressions: Service Date/Time: Sunday, December 18, 2016 17:54 - CONCLUSION: 1. Apparent interval removal of the left subclavian bipolar pacer/defibrillator. 2. No pneumothorax. 3. Cardiomegaly with interstitial prominence, bilateral airspace disease and effusions are characteristic of failure. Mt Alvarez MD Gall Bladder Ultrasound 12/10/16 1504 Signed Impressions: Service Date/Time: Saturday, December 10, 2016 15:21 - CONCLUSION: 1. The liver appears prominent and heterogeneous with lobular contours which could indicate underlying cirrhosis. 2. Apparent mild gallbladder wall thickening no evidence of cholelithiasis. 3. The common bile duct is at the upper limits of normal in size. Sergio Haro MD Breast Ultrasound 12/10/16 0000 Signed Impressions: Service Date/Time: Saturday, December 10, 2016 13:43 - CONCLUSION: Ill- defined hypoechoic area below the nipple with surrounding edema. The finding is nonspecific and could represent hemorrhage, fluid or infection. Sergio Haro MD Objective Remarks GENERAL: Alert, NAD. SKIN: Warm and dry. Large indurated area over left breast. HEAD: Normocephalic. EYES: No scleral icterus. No injection or drainage. NECK: Supple, trachea midline. No JVD or lymphadenopathy. CARDIOVASCULAR: Regular rate and rhythm without murmurs, gallops, or rubs. RESPIRATORY: Breath sounds equal bilaterally. No accessory muscle use. GASTROINTESTINAL: Abdomen soft, non-tender, nondistended. MUSCULOSKELETAL: No cyanosis. There is mild edema on upper extremities especially on the right side. BACK: Nontender without obvious deformity. No CVA tenderness. Procedures Transthoracic echocardiogram 12/12/2016 Poor echocardiographic windows Normal LV dimensions Normal LV systolic dysfunction estimated EF 60% There is moderate severe tricuspid regurgitation. There an echogenic linear structure in the RV please correlate clinically Vegetation cannot be excluded The estimated pulmonary arterial pressure is 33 mmHg. A/P Problem List: (1) Severe sepsis ICD Code: A41.9 - Sepsis, unspecified organism; R65.20 - Severe sepsis without septic shock (2) Cellulitis of left breast ICD Code: N61.0 - Mastitis without abscess (3) HARVEY (acute kidney injury) ICD Code: N17.9 - Acute kidney failure, unspecified (4) Hyperkalemia ICD Code: E87.5 - Hyperkalemia Assessment and Plan Ms. Dailey is a 71-year-old female with a history of hypertension, hyperlipidemia, CAD, CHF, diabetes mellitus who presented to the emergency department today for an evaluation of her altered mental status. Daughters noted that patient was easily agitated and not herself since yesterday 12/09/2016. Patient was evaluated in the emergency department on 2016 for left breast swelling and pain. Patient was discharged with clindamycin and Tylenol 3 in the previous visit. On arrival to the patient has leukocytosis, fever, lactic acid 3.5. She also was found to have acute kidney injury. 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 Pt is allergic to PCN. Currently on Cefazolin 1g Q12hrs. - Left breast ultrasound and gallbladder ultrasound reports reviewed. Left breast finding is concerning for hemorrhage, fluid or infection. - Infectious disease following. - Patient refused BORIS. EP and Cardiothoracic surgery following - device, lead extraction 12/18/2016. - WBC improved from 31.6K ==> 13.3K --> 10.7. - Blood culture from 12/17/2016 No growth to date. - INR 1.4 - Right IJ line pulled 12/22/2016. - Anemia - unknown source. - Patient denies any upper or lower GI bleed symptoms including no melena, hematochezia. - Hgb today 6.8, we'll transfuse 1 unit of PRBCs. We will give 20mg of IV lasix after transfusion. - Acute kidney injury - Baseline creatinine 0.99 on 11/28/2016. Creatinine on admission 1.49 ==> 2.04 ==> 1.48 today. - Hyperkalemia - K+ 5.7 ==> 3.9. Resolved. - Hypertension - CAD status post previous stent placements. - Ischemic cardiomyopathy - status post AICD placement about 2 years ago. - Systolic chronic congestive heart failure - Ejection fraction in 2015 was 10-15%. - Continue amlodipine 5 mg with holding parameters. - Hold HUMBLE inhibitor for now. - Continue metoprolol succinate 50 mg daily with holding parameters - Continue Bumex 1mg IV BID. - will discuss with Cardiology regarding possible need for LifeVest. It may not be necessary since ischemic cardiomyopathy is not new. - History of DVT - Currently on Warfarin. Will put a pharmacy consult for dosing. Full code. Warfarin. discussed with Chayo Camacho 25, 2017 12:22 pm
[2016-12-23] MEDS ORDERED: SODIUM CHLOR 0.9% 250 ML INJ 250 ML IV ONE (12:30)
[2016-12-23] MEDS ORDERED: FUROSEMIDE 20 MG/2 ML VIAL IV PUSH ONE (12:30)
--- NOTE | 2016-12-23 13:36 | PD.CAR.PN ---
CVT Progress Note Subjective/Hospital Course: (1) AICD generator infection (2) Aicd lead infection (3) Cellulitis of left breast (4) Severe sepsis Procedure: 12/18 Removal of AICD and laser extraction of leads (2) 12/19 marcos drain left axilla / drained 70cc bloody drainage in 12 hrs left breast cellulitis improving pt needs mobilization removal of ellis cath 12/20 marcos drained 70cc bloody drainage in 12 hrs will leave drain in for now, left upper chest incision intact and well approximated left breast cellulitis improving ellis cath removed yesterday 12/23 marcos drain removed without difficulty left upper chest wall incision intact and well approximated will need daily dressing changes to prior marcos site Objective: GENERAL: SKIN: Warm and dry. left breast still very swollen warm, indurated / marcos drain removed incision intact and well approximated left upper chest wall HEAD: Normocephalic. EYES: No scleral icterus. No injection or drainage. NECK: Supple, trachea midline. No JVD or lymphadenopathy. CARDIOVASCULAR: Regular rate and rhythm without murmurs, gallops, or rubs. RESPIRATORY: Breath sounds equal bilaterally. No accessory muscle use. GASTROINTESTINAL: Abdomen soft, non-tender, nondistended. MUSCULOSKELETAL: No cyanosis, or edema. BACK: Nontender without obvious deformity. No CVA tenderness. Vital Signs Date Time Temp Pulse Resp B/P (MAP) Pulse Ox O2 Delivery O2 Flow Rate FiO2 12/23/16 12:03 97.3 63 18 132/68 (89) 98 12/23/16 11:43 97.3 63 18 129/68 98 12/23/16 08:25 96 21 12/23/16 08:00 98.1 73 18 157/79 (105) 98 12/23/16 04:00 Nasal Cannula 2.00 12/23/16 04:00 97.3 64 18 139/61 (87) 99 12/23/16 00:00 97.1 62 18 131/61 (84) 95 12/23/16 00:00 Nasal Cannula 2.00 12/22/16 22:01 93 Nasal Cannula 3.00 12/22/16 20:00 97.1 62 18 122/60 (80) 100 12/22/16 20:00 59 12/22/16 20:00 Nasal Cannula 2.00 12/22/16 19:45 Nasal Cannula 2.00 12/22/16 16:00 97.4 54 18 147/65 (92) 94 12/22/16 15:33 57 12/22/16 15:33 45 12/22/16 15:33 38 Labs: Laboratory Tests Test 12/23/16 07:15 White Blood Count 6.7 TH/MM3 (4.0-11.0) Red Blood Count 3.06 MIL/MM3 (4.00-5.30) Hemoglobin 6.8 GM/DL (11.6-15.3) Hematocrit 22.5 % (35.0-46.0) Mean Corpuscular Volume 73.5 FL (80.0-100.0) Mean Corpuscular Hemoglobin 22.3 PG (27.0-34.0) Mean Corpuscular Hemoglobin Concent 30.4 % (32.0-36.0) Red Cell Distribution Width 25.7 % (11.6-17.2) Platelet Count 308 TH/MM3 (150-450) Mean Platelet Volume 7.6 FL (7.0-11.0) Neutrophils (%) (Auto) 72.1 % (16.0-70.0) Lymphocytes (%) (Auto) 11.2 % (9.0-44.0) Monocytes (%) (Auto) 14.3 % (0.0-8.0) Eosinophils (%) (Auto) 1.3 % (0.0-4.0) Basophils (%) (Auto) 1.1 % (0.0-2.0) Neutrophils # (Auto) 4.8 TH/MM3 (1.8-7.7) Lymphocytes # (Auto) 0.7 TH/MM3 (1.0-4.8) Monocytes # (Auto) 1.0 TH/MM3 (0-0.9) Eosinophils # (Auto) 0.1 TH/MM3 (0-0.4) Basophils # (Auto) 0.1 TH/MM3 (0-0.2) CBC Comment AUTO DIFF Differential Comment AUTO DIFF CONFIRMED Target Cells 1+ (NORMAL) Blood Urea Nitrogen 31 MG/DL (7-18) Creatinine 1.48 MG/DL (0.50-1.00) Random Glucose 71 MG/DL (74-106) Calcium Level 8.2 MG/DL (8.5-10.1) Sodium Level 139 MEQ/L (136-145) Potassium Level 3.8 MEQ/L (3.5-5.1) Chloride Level 105 MEQ/L (98-107) Carbon Dioxide Level 25.2 MEQ/L (21.0-32.0) Anion Gap 9 MEQ/L (5-15) Estimat Glomerular Filtration Rate 42 ML/MIN (>89) Result Diagram: 12/23/16 0715 12/23/16 0715 (1) Severe sepsis Plan: Removal of AICD and laser extraction of leads (2) left breast cellulitis MARCOS drain removed Sondra Farias Dec 23, 2016 13:36
--- NOTE | 2016-12-23 13:49 | HHI.FF ---
Face to Face Verification Diagnosis: (1) Aicd lead infection (2) HARVEY (acute kidney injury) (3) Severe sepsis (4) CHF (congestive heart failure) (5) Anemia Home Health Nursing Order: Medical education Signs/symptoms of disease process Medication education-adverse effect Nursing assessment with vital signs IV medication administration I have seen patient Facundo Dailey on 12/23/16. My clinical findings support the need for the requested home health care services because: Patient has SOB Deconditioned w/ increased weakness Med compliance is questionable Limited ability to care for self Need for psychosocial assistance Impaired cognition/judgement High risk of falls Infection w/ risk of complications I certify that my clinical findings support that this patient is homebound because: Impaired cognitive ability/safety Unsteady gait/balance Unsafe to leave home unassisted Need for psychosocial assistance [id number] bed/chair Unable to use public transportation Poor cardiac reserve Chayo Anthony DO Dec 23, 2016 1:49 pm
--- NOTE | 2016-12-23 15:38 | EKG ---
Date Performed: 12/22/2016 Time Performed: 16:50:02 PTAGE: 71 years EKG: Sinus Bradycardia Low voltage. Possible myocardial infarction -age undetermined. Clinical c orralation is strongly reccommended. Abnormal ECG PREVIOUS TRACING : 11/28/2016 10.05 DOCTOR: Floyd Ochoa Interpretating Date/Time 12/23/2016 15:38:13
[2016-12-23] MEDS: WARFARIN SOD 5 MG TAB PO SCH (15:56)
[2016-12-24] VITALS (9 sets, daily range): BP systolic 119–150; BP diastolic 63–77; PULSE 60–80; RESP 18–20; TEMP 96.8–98.5; O2SAT 85–100
[2016-12-24 08:23] LABS: AUTOMATED NEUTROPHIL # 7.2 TH/MM3 (1.8-7.7); BASOPHIL # 0.1 TH/MM3 (0-0.2); BASOPHIL % 0.9 % (0.0-2.0); EOSINOPHIL # 0.1 TH/MM3 (0-0.4); EOSINOPHIL % 0.8 % (0.0-4.0); HEMATOCRIT 25.2 % (35.0-46.0); LYMPH % 8.8 % (9.0-44.0); LYMPHOCYTE # 0.8 TH/MM3 (1.0-4.8); MEAN CELL VOLUME 74.5 FL (80.0-100.0); MEAN CORPUSCULAR HEMOGLOBIN 23.5 PG (27.0-34.0); MEAN CORPUSCULAR HGB CONC 31.6 % (32.0-36.0); MONO % 12.1 % (0.0-8.0); NEUT % 77.4 % (16.0-70.0); PLATELET COUNT 331 TH/MM3 (150-450); RED BLOOD COUNT 3.37 MIL/MM3 (4.00-5.30); RED CELL DISTRIBUTION WIDTH 27.5 % (11.6-17.2); WHITE BLOOD COUNT 9.3 TH/MM3 (4.0-11.0)
[2016-12-24 08:32] LABS: INTERNATIONAL NORMALIZED RATIO 2.4 RATIO; PROTHROMBIN TIME - PATIENT 27.6 SEC (9.8-11.6)
[2016-12-24 08:35] LABS: HEMO FLAGS AUTO DIFF
[2016-12-24] MEDS: amLODIPine BESYLATE 5 MG TAB PO SCH (08:55)
[2016-12-24] MEDS: METOPROLOL SUCCINATE 50 MG EXTENDED RELEASE TAB PO SCH (08:55)
[2016-12-24] MEDS: AMIODARONE 200 MG TAB PO SCH (08:55)
[2016-12-24] MEDS: BUMETANIDE INJ 1 MG/4 ML VIAL IV PUSH SCH (08:55)
[2016-12-24] MEDS: DOCUSATE SODIUM 50 MG/SENNA 8.6 MG TAB PO SCH ×2 (09:00→20:24)
[2016-12-24] MEDS: SODIUM CHLORIDE 0.9% FLUSH 10 ML FLUSH IV FLUSH SCH ×2 (09:00→20:25)
[2016-12-24 09:59] LABS: OVALOCYTES 1+ (NORMAL); PLATELET ESTIMATE SMEAR NORMAL (NORMAL); PLATELET MORPHOLOGY ENLARGED (NORMAL); SCAN/DIFF AUTO DIFF CONFIRMED; TARGET CELLS 1+ (NORMAL)
--- NOTE | 2016-12-24 14:48 | HHI.PR ---
Subjective Remarks Follow-up for AICD related device infection, bacteremia. Patient is currently doing well. Denies any chest pain, shortness of breath, fever or chills. She is sitting in her chair. She continues to have quite a bit of drainage from her left chest wall which she had a PRISCILLA drain in place. Objective Vitals Vital Signs Date Time Temp Pulse Resp B/P (MAP) Pulse Ox O2 Delivery O2 Flow Rate FiO2 12/24/16 12:00 97.5 80 18 150/72 (98) 100 12/24/16 09:00 97 Nasal Cannula 3.00 12/24/16 07:30 97.4 66 18 124/68 (86) 85 12/24/16 04:00 98.5 71 20 137/67 (90) 92 12/24/16 00:00 97.3 60 18 131/74 (93) 95 12/23/16 21:05 Nasal Cannula 1.00 12/23/16 20:51 63 12/23/16 20:00 97.6 63 20 141/65 (90) 97 12/23/16 16:32 97.5 60 18 120/62 (81) 92 12/23/16 15:00 97.5 60 18 120/62 98 I/O 12/23/16 12/23/16 12/23/16 12/24/16 12/24/16 12/24/16 07:00 15:00 23:00 07:00 15:00 23:00 Intake Total 470 ml 600 ml 340 ml Output Total 150 ml Balance 470 ml -150 ml 600 ml 340 ml Intake Oral 470 ml 600 ml 240 ml IV Total 100 ml Output Urine Total 150 ml # Voids 100 3 10 # Bowel Movements 0 1 0 2 Result Diagram: 12/24/16 0730 12/23/16 0715 Imaging Last Impressions Chest X-Ray 12/18/16 0000 Signed Impressions: Service Date/Time: Sunday, December 18, 2016 17:54 - CONCLUSION: 1. Apparent interval removal of the left subclavian bipolar pacer/defibrillator. 2. No pneumothorax. 3. Cardiomegaly with interstitial prominence, bilateral airspace disease and effusions are characteristic of failure. tM Alvarez MD Gall Bladder Ultrasound 12/10/16 1504 Signed Impressions: Service Date/Time: Saturday, December 10, 2016 15:21 - CONCLUSION: 1. The liver appears prominent and heterogeneous with lobular contours which could indicate underlying cirrhosis. 2. Apparent mild gallbladder wall thickening no evidence of cholelithiasis. 3. The common bile duct is at the upper limits of normal in size. Sergio Haro MD Breast Ultrasound 12/10/16 0000 Signed Impressions: Service Date/Time: Saturday, December 10, 2016 13:43 - CONCLUSION: Ill- defined hypoechoic area below the nipple with surrounding edema. The finding is nonspecific and could represent hemorrhage, fluid or infection. Sergio Haro MD Objective Remarks GENERAL: Alert, NAD. SKIN: Warm and dry. Large indurated area over left breast. HEAD: Normocephalic. EYES: No scleral icterus. No injection or drainage. NECK: Supple, trachea midline. No JVD or lymphadenopathy. CARDIOVASCULAR: Regular rate and rhythm without murmurs, gallops, or rubs. RESPIRATORY: Breath sounds equal bilaterally. No accessory muscle use. GASTROINTESTINAL: Abdomen soft, non-tender, nondistended. MUSCULOSKELETAL: No cyanosis. There is mild edema on upper extremities especially on the right side. BACK: Nontender without obvious deformity. No CVA tenderness. Procedures Transthoracic echocardiogram 12/12/2016 Poor echocardiographic windows Normal LV dimensions Normal LV systolic dysfunction estimated EF 60% There is moderate severe tricuspid regurgitation. There an echogenic linear structure in the RV please correlate clinically Vegetation cannot be excluded The estimated pulmonary arterial pressure is 33 mmHg. A/P Problem List: (1) Severe sepsis ICD Code: A41.9 - Sepsis, unspecified organism; R65.20 - Severe sepsis without septic shock (2) Cellulitis of left breast ICD Code: N61.0 - Mastitis without abscess (3) HARVEY (acute kidney injury) ICD Code: N17.9 - Acute kidney failure, unspecified (4) Hyperkalemia ICD Code: E87.5 - Hyperkalemia Assessment and Plan Ms. Dailey is a 71-year-old female with a history of hypertension, hyperlipidemia, CAD, CHF, diabetes mellitus who presented to the emergency department today for an evaluation of her altered mental status. Daughters noted that patient was easily agitated and not herself since yesterday 12/09/2016. Patient was evaluated in the emergency department on 2016 for left breast swelling and pain. Patient was discharged with clindamycin and Tylenol 3 in the previous visit. On arrival to the patient has leukocytosis, fever, lactic acid 3.5. She also was found to have acute kidney injury. 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 Currently on Cefazolin 1g Q12hrs. - Left breast ultrasound and gallbladder ultrasound reports reviewed. Left breast finding is concerning for hemorrhage, fluid or infection. - Infectious disease following. - Patient refused BORIS. EP and Cardiothoracic surgery following - device, lead extraction 12/18/2016. - WBC improved from 31.6K ==> 13.3K --> 10.7. - Blood culture from 12/17/2016 No growth to date. - INR 2.4 on 12/24/2016. - Right IJ line pulled 12/22/2016. - We can likely place PICC line on 12/25/2016 and arrange home health with Cefazolin infusion. - LifeVest will be required upon discharge. - Patient can likely be discharged in the next 1-2 days. - Anemia - unknown source. - Patient denies any upper or lower GI bleed symptoms including no melena, hematochezia. - Hgb dropped to 6.8, status post 1 unit transfusion. Currently hemoglobin 7.9. - Acute kidney injury - Baseline creatinine 0.99 on 11/28/2016. Creatinine on admission 1.49 ==> 2.04 ==> 1.48 - Hyperkalemia - K+ 5.7 ==> 3.8. Resolved. - Hypertension - CAD status post previous stent placements. - Ischemic cardiomyopathy - status post AICD placement about 2 years ago. - Systolic chronic congestive heart failure - Ejection fraction in 2015 was 10-15%. - Continue amlodipine 5 mg with holding parameters. - Hold HUMBLE inhibitor for now. - Continue metoprolol succinate 50 mg daily with holding parameters - Continue Bumex 1mg IV BID. - Discussed with Dr. Feliciano. Patient will require LifeVest on discharge. - History of DVT - Currently on Warfarin, pharmacy to dose. Full code. Warfarin. INR now 2.4. Discharge plan: Consider PICC line on 12/25/2016. Dr. Tamayo (ID) will be back on 12/27/2016. Another ID physician, Dr. PASTOR is covering Dr. Tamayo. Lifevest needs to be arranged prior to discharge. Home health with IV abx infusion needs to be arranged as well. Potential discharge in the next 1-2 days. Chayo Anthony DO Dec 24, 2016 14:48
--- NOTE | 2016-12-24 17:21 | HHI.PR ---
Subjective Remarks Feeling better When am I going home Objective Vital Signs Date Time Temp Pulse Resp B/P (MAP) Pulse Ox O2 Delivery O2 Flow Rate FiO2 12/24/16 16:00 96.8 62 18 119/77 (91) 94 12/24/16 12:00 97.5 80 18 150/72 (98) 100 12/24/16 09:00 97 Nasal Cannula 3.00 12/24/16 07:30 97.4 66 18 124/68 (86) 85 12/24/16 04:00 98.5 71 20 137/67 (90) 92 12/24/16 00:00 97.3 60 18 131/74 (93) 95 12/23/16 21:05 Nasal Cannula 1.00 12/23/16 20:51 63 12/23/16 20:00 97.6 63 20 141/65 (90) 97 I/O 12/23/16 12/23/16 12/23/16 12/24/16 12/24/16 12/24/16 07:00 15:00 23:00 07:00 15:00 23:00 Intake Total 470 ml 600 ml 340 ml Output Total 150 ml Balance 470 ml -150 ml 600 ml 340 ml Intake Oral 470 ml 600 ml 240 ml IV Total 100 ml Output Urine Total 150 ml # Voids 100 3 10 # Bowel Movements 0 1 0 2 Result Diagram: 12/24/16 0730 12/23/16 0715 Imaging Alert,fully oriented Lungs: ventilated Heart: S1,[id number],no gallop Left subclavian area with a drain abdomen:soft,obese no mass Ext: No edema Last Impressions Chest X-Ray 12/18/16 0000 Signed Impressions: Service Date/Time: Sunday, December 18, 2016 17:54 - CONCLUSION: 1. Apparent interval removal of the left subclavian bipolar pacer/defibrillator. 2. No pneumothorax. 3. Cardiomegaly with interstitial prominence, bilateral airspace disease and effusions are characteristic of failure. Mt Alvarez MD Gall Bladder Ultrasound 12/10/16 1504 Signed Impressions: Service Date/Time: Saturday, December 10, 2016 15:21 - CONCLUSION: 1. The liver appears prominent and heterogeneous with lobular contours which could indicate underlying cirrhosis. 2. Apparent mild gallbladder wall thickening no evidence of cholelithiasis. 3. The common bile duct is at the upper limits of normal in size. Sergio Haro MD Breast Ultrasound 12/10/16 0000 Signed Impressions: Service Date/Time: Saturday, December 10, 2016 13:43 - CONCLUSION: Ill- defined hypoechoic area below the nipple with surrounding edema. The finding is nonspecific and could represent hemorrhage, fluid or infection. Sergio Haro MD Current Medications Medications (Trade) Dose Ordered Sig/Juan Route Start Time Stop Time Status Last Admin (Tylenol) 650 mg Q4H PRN PO 12/10/16 14:45 12/23/16 15:56 (Zofran Inj) 4 mg Q6H PRN IVP 12/10/16 14:45 (Narcan Inj) 0.4 mg UNSCH PRN IV 12/10/16 14:45 (Jasmine-Colace) 1 tab BID PO 12/10/16 21:00 12/22/16 08:54 (Milk Of Magnesia Liq) 30 ml Q12H PRN PO 12/10/16 14:45 (Senokot) 17.2 mg Q12H PRN PO 12/10/16 14:45 (Dulcolax Supp) 10 mg DAILY PRN RECTAL 12/10/16 14:45 (Lactulose Liq) 30 ml DAILY PRN PO 12/10/16 14:45 (Cordarone) 200 mg DAILY PO 12/11/16 09:00 12/24/16 08:55 (Norvasc) 5 mg DAILY PO 12/11/16 09:00 12/24/16 08:55 (Toprol Xl) 50 mg DAILY PO 12/11/16 09:00 12/24/16 08:55 Cefazolin Sodium 2000 mg/Sodium Chloride 100 ml @ 200 mls/hr Q12H IV 12/17/16 06:00 12/24/16 05:31 (NS Flush) 2 ml BID IV FLUSH 12/17/16 21:00 12/24/16 09:00 (NS Flush) 2 ml UNSCH PRN IV FLUSH 12/17/16 11:15 (Bacitracin Oint Packet) 0.9 gm UNSCH PRN TOP 12/18/16 17:00 (Percocet 5-325 Mg) 1 tab Q4H PRN PO 12/18/16 17:00 (Bumex Inj) 1 mg BID@09,18 IV PUSH 12/21/16 18:00 12/24/16 17:59 12/24/16 08:55 Pharmacy Profile Note 0 ml @ 0 mls/hr UNSCH OTHER 12/23/16 12:30 (Coumadin) 3 mg DAILY@1600 PO 12/25/16 16:00 Future Hold Assessment and Plan Problem List: (1) Cellulitis of left breast ICD Codes: N61.0 - Mastitis without abscess Plan: Device was removed due left breast cellulitis and infection Still have secretion coming out of the site Will need at least 4-6 weeks of IV antibiotic before new device implanted. (2) Severe sepsis ICD Codes: A41.9 - Sepsis, unspecified organism; R65.20 - Severe sepsis without septic shock Plan: Previous defib shock and discontinue VT ablation for ventricular tachycardia in 2014 This is secondary prevention Will need defib vest before discharge homer I will see Mrs Dailey in 4 weeks case discussed with patient and her family as well as Birgit Baeza MD Dec 24, 2016 17:21
[2016-12-25] VITALS (7 sets, daily range): BP systolic 115–154; BP diastolic 51–69; PULSE 59–73; RESP 18–22; TEMP 97–97.4; O2SAT 88–100
[2016-12-25] MEDS: amLODIPine BESYLATE 5 MG TAB PO SCH ×2 (09:00→10:01)
[2016-12-25 09:14] LABS: PROTHROMBIN TIME - PATIENT 34.3 SEC (9.8-11.6)
[2016-12-25] MEDS: METOPROLOL SUCCINATE 50 MG EXTENDED RELEASE TAB PO SCH ×2 (10:01→10:06)
[2016-12-25] MEDS: AMIODARONE 200 MG TAB PO SCH ×3 (10:01→12:51)
[2016-12-25] MEDS: DOCUSATE SODIUM 50 MG/SENNA 8.6 MG TAB PO SCH ×2 (10:01→20:47)
[2016-12-25] MEDS: SODIUM CHLORIDE 0.9% FLUSH 10 ML FLUSH IV FLUSH SCH ×2 (10:03→20:47)
[2016-12-25] MEDS: ACETAMINOPHEN 325 MG TAB PO PRN (11:54)
[2016-12-25] MEDS ORDERED: BUMETANIDE 1 MG TAB PO SCH (12:30)
--- NOTE | 2016-12-25 13:25 | HHI.PR ---
Addendum to Inpatient Note Additional Information Pt seen around 1300 full note to follow doing OK BC are neg afebrile co L breasr wound drainage needs life vest Rec's: - cont cefazolin x 6 weeks post op total PICC; will arrange for home IV abx can have AICD placed on opp site after 2 weeks post removal surgery Darleen Tamayo MD Dec 25, 2016 13:25
[2016-12-25 15:53] LABS: AUTOMATED NEUTROPHIL # 4.8 TH/MM3 (1.8-7.7); BASOPHIL # 0.1 TH/MM3 (0-0.2); BASOPHIL % 1.3 % (0.0-2.0); EOSINOPHIL # 0.1 TH/MM3 (0-0.4); EOSINOPHIL % 1.3 % (0.0-4.0); HEMATOCRIT 25.5 % (35.0-46.0); LYMPH % 8.8 % (9.0-44.0); LYMPHOCYTE # 0.6 TH/MM3 (1.0-4.8); MEAN CELL VOLUME 74.2 FL (80.0-100.0); MEAN CORPUSCULAR HEMOGLOBIN 22.8 PG (27.0-34.0); MEAN CORPUSCULAR HGB CONC 30.8 % (32.0-36.0); MONO % 17.8 % (0.0-8.0); NEUT % 70.8 % (16.0-70.0); PLATELET COUNT 349 TH/MM3 (150-450); RED BLOOD COUNT 3.44 MIL/MM3 (4.00-5.30); WHITE BLOOD COUNT 6.8 TH/MM3 (4.0-11.0)
[2016-12-25 15:54] LABS: HEMO FLAGS AUTO DIFF
[2016-12-25] MEDS ORDERED: WARFARIN SOD 3 MG TAB PO SCH (16:00)
[2016-12-25 16:13] LABS: ANION GAP 8 MEQ/L (5-15); AST (GOT) 24 U/L (15-37); BICARBONATE 25.8 MEQ/L (21.0-32.0); BLOOD UREA NITROGEN 29 MG/DL (7-18); CHLORIDE 105 MEQ/L (98-107); GLOMERULAR FILTRATION RATE 45 ML/MIN (>89); MAGNESIUM 1.1 MG/DL (1.5-2.5); POTASSIUM 3.9 MEQ/L (3.5-5.1); SODIUM (NA) 139 MEQ/L (136-145)
[2016-12-25 16:14] LABS: ALT (GPT) LESS THAN 6 U/L (10-53)
--- NOTE | 2016-12-25 16:15 | HHI.PR ---
Subjective Remarks c/o left breast pain and drainage denies fevers/chills denies sob low o2 sat Objective Vitals Vital Signs Date Time Temp Pulse Resp B/P (MAP) Pulse Ox O2 Delivery O2 Flow Rate FiO2 12/25/16 12:01 97.2 64 18 154/64 (94) 88 12/25/16 10:05 59 115/51 (72) 12/25/16 08:01 97.3 61 18 128/67 (87) 93 12/25/16 04:10 97.4 64 22 127/66 (86) 91 12/25/16 04:00 Nasal Cannula 3.00 12/25/16 00:00 Nasal Cannula 3.00 12/24/16 23:56 97.7 61 18 120/73 (89) 90 12/24/16 20:22 97.2 61 18 134/63 (86) 97 12/24/16 20:00 Nasal Cannula 3.00 12/24/16 20:00 60 I/O 12/24/16 12/24/16 12/24/16 12/25/16 12/25/16 12/25/16 07:00 15:00 23:00 07:00 15:00 23:00 Intake Total 340 ml 480 ml 200 ml Output Total 550 ml 250 ml Balance 340 ml -70 ml -50 ml Intake Oral 240 ml 480 ml 200 ml IV Total 100 ml Output Urine Total 550 ml 250 ml # Voids 10 # Bowel Movements 2 0 0 Result Diagram: 12/25/16 1510 12/23/16 0715 Imaging Last Impressions Chest X-Ray 12/18/16 0000 Signed Impressions: Service Date/Time: Sunday, December 18, 2016 17:54 - CONCLUSION: 1. Apparent interval removal of the left subclavian bipolar pacer/defibrillator. 2. No pneumothorax. 3. Cardiomegaly with interstitial prominence, bilateral airspace disease and effusions are characteristic of failure. Mt Alvarez MD Gall Bladder Ultrasound 12/10/16 1504 Signed Impressions: Service Date/Time: Saturday, December 10, 2016 15:21 - CONCLUSION: 1. The liver appears prominent and heterogeneous with lobular contours which could indicate underlying cirrhosis. 2. Apparent mild gallbladder wall thickening no evidence of cholelithiasis. 3. The common bile duct is at the upper limits of normal in size. Sergio Haro MD Breast Ultrasound 12/10/16 0000 Signed Impressions: Service Date/Time: Saturday, December 10, 2016 13:43 - CONCLUSION: Ill- defined hypoechoic area below the nipple with surrounding edema. The finding is nonspecific and could represent hemorrhage, fluid or infection. Sergio Haro MD Objective Remarks GENERAL: Alert, NAD. SKIN: Warm and dry. Large indurated area over left breast. HEAD: Normocephalic. EYES: No scleral icterus. No injection or drainage. NECK: Supple, trachea midline. No JVD or lymphadenopathy. CARDIOVASCULAR: Regular rate and rhythm without murmurs, gallops, or rubs. RESPIRATORY: Breath sounds equal bilaterally. No accessory muscle use. GASTROINTESTINAL: Abdomen soft, non-tender, nondistended. MUSCULOSKELETAL: No cyanosis. (+) 1 edema in lower extremities BACK: Nontender without obvious deformity. No CVA tenderness. Procedures Transthoracic echocardiogram 12/12/2016 Poor echocardiographic windows Normal LV dimensions Normal LV systolic dysfunction estimated EF 60% There is moderate severe tricuspid regurgitation. There an echogenic linear structure in the RV please correlate clinically Vegetation cannot be excluded The estimated pulmonary arterial pressure is 33 mmHg. Medications and IVs Current Medications Medications (Trade) Dose Ordered Sig/Juan Route Start Time Stop Time Status Last Admin (Tylenol) 650 mg Q4H PRN PO 12/10/16 14:45 12/25/16 11:54 (Zofran Inj) 4 mg Q6H PRN IVP 12/10/16 14:45 (Narcan Inj) 0.4 mg UNSCH PRN IV 12/10/16 14:45 (Jasmine-Colace) 1 tab BID PO 12/10/16 21:00 12/25/16 10:01 (Milk Of Magnesia Liq) 30 ml Q12H PRN PO 12/10/16 14:45 (Senokot) 17.2 mg Q12H PRN PO 12/10/16 14:45 (Dulcolax Supp) 10 mg DAILY PRN RECTAL 12/10/16 14:45 (Lactulose Liq) 30 ml DAILY PRN PO 12/10/16 14:45 (Cordarone) 200 mg DAILY PO 12/11/16 09:00 12/25/16 12:51 (Norvasc) 5 mg DAILY PO 12/11/16 09:00 12/24/16 08:55 (Toprol Xl) 50 mg DAILY PO 12/11/16 09:00 12/24/16 08:55 Cefazolin Sodium 2000 mg/Sodium Chloride 100 ml @ 200 mls/hr Q12H IV 12/17/16 06:00 12/25/16 05:28 (NS Flush) 2 ml BID IV FLUSH 12/17/16 21:00 12/25/16 10:03 (NS Flush) 2 ml UNSCH PRN IV FLUSH 12/17/16 11:15 (Bacitracin Oint Packet) 0.9 gm UNSCH PRN TOP 12/18/16 17:00 (Percocet 5-325 Mg) 1 tab Q4H PRN PO 12/18/16 17:00 Pharmacy Profile Note 0 ml @ 0 mls/hr UNSCH OTHER 12/23/16 12:30 (Bumetanide) 1 mg DAILY PO 12/25/16 12:30 A/P Problem List: (1) Severe sepsis ICD Code: A41.9 - Sepsis, unspecified organism; R65.20 - Severe sepsis without septic shock Status: Resolved (2) Cellulitis of left breast ICD Code: N61.0 - Mastitis without abscess Status: Acute (3) HARVEY (acute kidney injury) ICD Code: N17.9 - Acute kidney failure, unspecified Status: Acute (4) Hyperkalemia ICD Code: E87.5 - Hyperkalemia Status: Resolved Assessment and Plan Ms. Dailey is a 71-year-old female with a history of hypertension, hyperlipidemia, CAD, CHF, diabetes mellitus who presented to the emergency department today for an evaluation of her altered mental status. Daughters noted that patient was easily agitated and not herself since yesterday 12/09/2016. Patient was evaluated in the emergency department on 2016 for left breast swelling and pain. Patient was discharged with clindamycin and Tylenol 3 in the previous visit. On arrival to the patient has leukocytosis, fever, lactic acid 3.5. She also was found to have acute kidney injury. - Severe sepsis - Probable AICD-related infection - Probable endocarditis - MSSA bacteremia - SPCefepime 2g Q8hrs and Vancomycin. Currently on Cefazolin 1g Q12hrs. - Left breast ultrasound and gallbladder ultrasound reports reviewed. Left breast finding is concerning for hemorrhage, fluid or infection. - Infectious disease following. - Patient refused BORIS. EP and Cardiothoracic surgery following - device, lead extraction 12/18/2016. - WBC improved from 31.6K ==> 13.3K --> 10.7. - Blood culture from 12/17/2016 No growth to date. - INR 3.0 on 12/25/2016. - Right IJ line pulled 12/22/2016. - We can likely place PICC line on 12/25/2016 and arrange home health with Cefazolin infusion. - 12/25 Ordered life vest. - Anemia - unknown source. - Patient denies any upper or lower GI bleed symptoms including no melena, hematochezia. - Hgb dropped to 6.8, status post 1 unit transfusion. Currently hemoglobin 7.9. - Acute kidney injury - Baseline creatinine 0.99 on 11/28/2016. Creatinine on admission 1.49 ==> 2.04 ==> 1.48 - 12/25 lab pending - follow up. - Hyperkalemia - K+ 5.7 ==> 3.8. Resolved. - Hypertension - CAD status post previous stent placements. - Ischemic cardiomyopathy - status post AICD placement about 2 years ago. - Systolic chronic congestive heart failure - Ejection fraction in 2015 was 10-15%. - Continue amlodipine 5 mg with holding parameters. - Hold HUMBLE inhibitor for now. - Continue metoprolol succinate 50 mg daily with holding parameters - Continue Bumex 1mg IV BID. - Discussed with Dr. Feliciano. Patient will require LifeVest on discharge. - History of DVT - Currently on Warfarin, pharmacy to dose. Full code. Warfarin. INR now 3.0. Discharge Planning Will DC once IV antibiotics arranged. Defibrillator vest ordered. Will go to home with [facility] as family not receptive to SNF. transaction advisory services manager to assist. North Pardo MD Dec 25, 2016 16:15
[2016-12-25 16:16] LABS: ALKALINE PHOSPHATASE 105 U/L (45-117); TOTAL BILIRUBIN ADULT 1.6 MG/DL (0.2-1.0)
[2016-12-25] MEDS ORDERED: DEFIB EXTERNAL (16:17)
[2016-12-25 17:01] LABS: ACANTHOCYTES 1+ (NORMAL); OVALOCYTES 1+ (NORMAL); PLATELET ESTIMATE SMEAR NORMAL (NORMAL); PLATELET MORPHOLOGY NORMAL (NORMAL); SCAN/DIFF AUTO DIFF CONFIRMED
[2016-12-25] MEDS ORDERED: SODIUM CHLORIDE 0.9% FLUSH 10 ML FLUSH IV FLUSH PRN (19:15)
--- NOTE | 2016-12-25 19:33 | RADRPT ---
EXAM DATE/TIME: 12/25/2016 19:02 [facility] COMPARISON: CHEST SINGLE AP, December 18, 2016, 17:54. INDICATIONS : New PICC line right arm. MEDICAL HISTORY : Hypertension. Congestive heart failure. COPD. Asthma. Diabetes. Dyspnea. SURGICAL HISTORY : Appendectomy. Hysterectomy. Cardiac cath. Cataracts. Cardiac stents. Pacemaker. Right lumpectomy. ENCOUNTER: Subsequent ACUITY: 1 day PAIN SCORE: 0/10 LOCATION: Right chest FINDINGS: Moderate cardiomegaly again noted, not significantly changed. There is mild edema at both bases and s ome patchy atelectasis in the left mid and upper lung. No large effusion seen. No pneumothorax. There is a right arm PICC with tip in the upper superior vena cava. CONCLUSION: Right arm PICC has its tip in the superior vena cava. Improved failure, now mild. The patchy atelecta sis/infiltrate of the left mid and upper lung also improved. Gregory Rivero MD on December 25, 2016 at 19:29 Board Certified Radiologist. This report was verified electronically.
[2016-12-25] MEDS: BUMETANIDE INJ 1 MG/4 ML VIAL IV PUSH SCH (20:46)
--- NOTE | 2016-12-25 23:43 | HHI.IDPN ---
Subjective Subjective Remarks delayed entgry Pt seen around 1300 doing OK BC are negative afebrile co L breast wound drainage needs life vest Antibiotics cefazoline Allergies: Coded Allergies: penicillin G (Unverified Allergy, Severe, rash, 11/28/16) benazepril (Unverified Allergy, Mild, 11/28/16) HUMBLE inhibitor angioedema, swelling of the face lips and anterior tongue captopril (Unverified Allergy, Mild, 11/28/16) HUMBLE inhibitor angioedema, swelling of the face lips and anterior tongue enalaprilat (Unverified Allergy, Mild, 11/28/16) HUMBLE inhibitor angioedema, swelling of the face lips and anterior tongue fosinopril (Unverified Allergy, Mild, 11/28/16) HUMBLE inhibitor angioedema, swelling of the face lips and anterior tongue lisinopril (Unverified Allergy, Mild, 11/28/16) HUMBLE inhibitor angioedema, swelling of the face lips and anterior tongue quinapril (Unverified Allergy, Mild, 11/28/16) HUMBLE inhibitor angioedema, swelling of the face lips and anterior tongue Uncoded Allergies: NON COMPATIBLE PACEMAKER (Adverse Reaction, Severe, MRI PRECAUTION / PACEMAKER, 11/03/14) MRI PRECAUTION. PACEMAKER Objective . Vital Signs Date Time Temp Pulse Resp B/P (MAP) Pulse Ox O2 Delivery O2 Flow Rate FiO2 12/25/16 20:00 97.0 73 20 149/69 (95) 100 12/25/16 16:01 97.1 64 18 141/68 (92) 91 12/25/16 12:01 97.2 64 18 154/64 (94) 88 12/25/16 10:05 59 115/51 (72) 12/25/16 08:01 97.3 61 18 128/67 (87) 93 12/25/16 08:00 62 12/25/16 07:30 Nasal Cannula 2.00 12/25/16 04:10 97.4 64 22 127/66 (86) 91 12/25/16 04:00 Nasal Cannula 3.00 12/25/16 00:00 Nasal Cannula 3.00 12/24/16 23:56 97.7 61 18 120/73 (89) 90 12/25/16 12/25/16 12/26/16 15:00 23:00 07:00 Intake Total 320 ml Balance 320 ml Intake Oral 320 ml # Voids 4 # Bowel Movements 3 . Laboratory Tests Test 12/24/16 07:30 12/25/16 15:10 White Blood Count 9.3 TH/MM3 6.8 TH/MM3 Red Blood Count 3.37 MIL/MM3 3.44 MIL/MM3 Hemoglobin 7.9 GM/DL 7.9 GM/DL Hematocrit 25.2 % 25.5 % Mean Corpuscular Volume 74.5 FL 74.2 FL Mean Corpuscular Hemoglobin 23.5 PG 22.8 PG Mean Corpuscular Hemoglobin Concent 31.6 % 30.8 % Red Cell Distribution Width 27.5 % 28.0 % Platelet Count 331 TH/MM3 349 TH/MM3 Mean Platelet Volume 7.6 FL 7.1 FL Neutrophils (%) (Auto) 77.4 % 70.8 % Lymphocytes (%) (Auto) 8.8 % 8.8 % Monocytes (%) (Auto) 12.1 % 17.8 % Eosinophils (%) (Auto) 0.8 % 1.3 % Basophils (%) (Auto) 0.9 % 1.3 % Neutrophils # (Auto) 7.2 TH/MM3 4.8 TH/MM3 Lymphocytes # (Auto) 0.8 TH/MM3 0.6 TH/MM3 Monocytes # (Auto) 1.1 TH/MM3 1.2 TH/MM3 Eosinophils # (Auto) 0.1 TH/MM3 0.1 TH/MM3 Basophils # (Auto) 0.1 TH/MM3 0.1 TH/MM3 CBC Comment AUTO DIFF AUTO DIFF Differential Comment AUTO DIFF CONFIRMED AUTO DIFF CONFIRMED Platelet Estimate NORMAL NORMAL Platelet Morphology Comment ENLARGED NORMAL Target Cells 1+ Ovalocytes 1+ 1+ Acanthocytes 1+ Laboratory Tests Test 12/25/16 15:10 Blood Urea Nitrogen 29 MG/DL Creatinine 1.39 MG/DL Random Glucose 114 MG/DL Total Protein 7.4 GM/DL Albumin 2.4 GM/DL Calcium Level 7.9 MG/DL Phosphorus Level 2.2 MG/DL Magnesium Level 1.1 MG/DL Alkaline Phosphatase 105 U/L Aspartate Amino Transf (AST/SGOT) 24 U/L Alanine Aminotransferase (ALT/SGPT) LESS THAN 6 U/L Total Bilirubin 1.6 MG/DL Sodium Level 139 MEQ/L Potassium Level 3.9 MEQ/L Chloride Level 105 MEQ/L Carbon Dioxide Level 25.8 MEQ/L Anion Gap 8 MEQ/L Estimat Glomerular Filtration Rate 45 ML/MIN Imaging Last Impressions Chest X-Ray 12/25/16 0000 Signed Impressions: Service Date/Time: Sunday, December 25, 2016 19:02 - CONCLUSION: Right arm PICC has its tip in the superior vena cava. Improved failure, now mild. The patchy atelectasis/infiltrate of the left mid and upper lung also improved. Gregory Rivero MD Gall Bladder Ultrasound 12/10/16 1504 Signed Impressions: Service Date/Time: Saturday, December 10, 2016 15:21 - CONCLUSION: 1. The liver appears prominent and heterogeneous with lobular contours which could indicate underlying cirrhosis. 2. Apparent mild gallbladder wall thickening no evidence of cholelithiasis. 3. The common bile duct is at the upper limits of normal in size. Sergio Haro MD Breast Ultrasound 12/10/16 0000 Signed Impressions: Service Date/Time: Saturday, December 10, 2016 13:43 - CONCLUSION: Ill- defined hypoechoic area below the nipple with surrounding edema. The finding is nonspecific and could represent hemorrhage, fluid or infection. Sergio Haro MD Physical Exam CONSTITUTIONAL/GENERAL: This is an adequately nourished patient, in no apparent distress. TUBES/LINES/DRAINS: SKIN: No jaundice, rashes, or lesions. Skin temperature appropriate. Not diaphoretic. CARDIOVASCULAR: Regular rate and rhythm without murmurs, gallops, or rubs. No JVD. Peripheral pulses symmetric. L chest wound with prominenet serosang d/c RESPIRATORY/CHEST: Symmetric, unlabored respirations. Clear to auscultation. Breath sounds equal bilaterally. No wheezes, rales, or rhonchi. GASTROINTESTINAL: Abdomen soft, non-tender, nondistended. No hepato-splenomegaly , or palpable masses. No guarding. Bowel sounds present. MUSCULOSKELETAL: Extremities without clubbing, cyanosis, or edema. BLE with prominent varices NEUROLOGICAL: awake, alert, talkative PSYCHIATRIC: calm and cooperative Assessment & Plan Remarks High grade MSSA bacteremia and L chest edema aw pacer - probable pacer infection/endocarditis refused BORIS sp pacer extractin with leads High grade PCN allergy: hives, tolearting [place] cefepime New issu: HARVEY - resolved - eosinophils negative Pt is getting better Rec's: - cont cefazolin x 6 weeks post op total PICC; will arrange for home IV abx can have AICD placed on opp site after 2 weeks post removal surgery Discussed Condition With Dr Anthony manager family @ b/s Darleen Tamayo MD Dec 25, 2016 23:43
[2016-12-26] VITALS (8 sets, daily range): BP systolic 112–152; BP diastolic 58–79; PULSE 65–90; RESP 18–20; TEMP 97.2–98.1; O2SAT 97–100
[2016-12-26 07:20] LABS: AUTOMATED NEUTROPHIL # 5.8 TH/MM3 (1.8-7.7); BASOPHIL # 0.1 TH/MM3 (0-0.2); BASOPHIL % 0.9 % (0.0-2.0); EOSINOPHIL # 0.1 TH/MM3 (0-0.4); EOSINOPHIL % 1.1 % (0.0-4.0); LYMPH % 7.4 % (9.0-44.0); LYMPHOCYTE # 0.6 TH/MM3 (1.0-4.8); MEAN CELL VOLUME 74.2 FL (80.0-100.0); MEAN CORPUSCULAR HEMOGLOBIN 22.3 PG (27.0-34.0); MONO % 15.4 % (0.0-8.0); NEUT % 75.2 % (16.0-70.0); PLATELET COUNT 316 TH/MM3 (150-450); RED BLOOD COUNT 3.24 MIL/MM3 (4.00-5.30); WHITE BLOOD COUNT 7.8 TH/MM3 (4.0-11.0)
[2016-12-26 07:24] LABS: HEMO FLAGS AUTO DIFF; INTERNATIONAL NORMALIZED RATIO 3.3 RATIO; PROTHROMBIN TIME - PATIENT 38.2 SEC (9.8-11.6)
[2016-12-26 07:42] LABS: ALT (GPT) LESS THAN 6 U/L (10-53); ANION GAP 5 MEQ/L (5-15); AST (GOT) 22 U/L (15-37); BICARBONATE 28.7 MEQ/L (21.0-32.0); BLOOD UREA NITROGEN 28 MG/DL (7-18); CHLORIDE 107 MEQ/L (98-107); GLOMERULAR FILTRATION RATE 46 ML/MIN (>89); MAGNESIUM 1.1 MG/DL (1.5-2.5); POTASSIUM 3.7 MEQ/L (3.5-5.1); SODIUM (NA) 141 MEQ/L (136-145)
[2016-12-26 07:44] LABS: ALKALINE PHOSPHATASE 108 U/L (45-117); TOTAL BILIRUBIN ADULT 1.5 MG/DL (0.2-1.0)
[2016-12-26 08:56] LABS: OVALOCYTES 1+ (NORMAL); SCAN/DIFF AUTO DIFF CONFIRMED; TARGET CELLS 2+ (NORMAL)
[2016-12-26] MEDS: BUMETANIDE INJ 1 MG/4 ML VIAL IV PUSH SCH ×2 (10:08→17:13)
[2016-12-26] MEDS: amLODIPine BESYLATE 5 MG TAB PO SCH (10:08)
[2016-12-26] MEDS: SODIUM CHLORIDE 0.9% FLUSH 10 ML FLUSH IV FLUSH SCH ×3 (10:08→19:56)
[2016-12-26] MEDS: DOCUSATE SODIUM 50 MG/SENNA 8.6 MG TAB PO SCH ×2 (10:09→19:56)
[2016-12-26] MEDS ORDERED: OXYGEN NAS.CANULA (11:55)
--- NOTE | 2016-12-26 12:26 | HHI.PR ---
Subjective Remarks Follow-up severe sepsis, AICD related infection, endocarditis, acute kidney injury, MSSA bacteremia, anemia, hyperkalemia, history of DVT, hypertension. Patient feels much better denies cp/sob denies dizziness Creatinine is trending down Objective Vitals Vital Signs Date Time Temp Pulse Resp B/P (MAP) Pulse Ox O2 Delivery O2 Flow Rate FiO2 12/26/16 12:00 97.4 73 20 135/68 (90) 97 12/26/16 10:24 Nasal Cannula 2.00 12/26/16 10:24 71 12/26/16 08:00 97.3 80 20 112/58 (76) 99 12/26/16 04:00 97.2 73 18 150/74 (99) 100 12/26/16 00:00 97.5 65 20 132/79 (96) 97 12/25/16 21:20 Nasal Cannula 2.00 12/25/16 20:00 97.0 73 20 149/69 (95) 100 12/25/16 20:00 68 12/25/16 16:01 97.1 64 18 141/68 (92) 91 I/O 12/25/16 12/25/16 12/25/16 12/26/16 12/26/16 12/26/16 07:00 15:00 23:00 07:00 15:00 23:00 Intake Total 200 ml 320 ml 580 ml Output Total 250 ml Balance -50 ml 320 ml 580 ml Intake Oral 200 ml 320 ml 480 ml IV Total 100 ml Output Urine Total 250 ml # Voids 4 4 # Bowel Movements 0 3 Result Diagram: 12/26/16 0650 12/26/16 0650 Imaging Last Impressions Chest X-Ray 12/25/16 0000 Signed Impressions: Service Date/Time: Sunday, December 25, 2016 19:02 - CONCLUSION: Right arm PICC has its tip in the superior vena cava. Improved failure, now mild. The patchy atelectasis/infiltrate of the left mid and upper lung also improved. Gregory Rivero MD Gall Bladder Ultrasound 12/10/16 1504 Signed Impressions: Service Date/Time: Saturday, December 10, 2016 15:21 - CONCLUSION: 1. The liver appears prominent and heterogeneous with lobular contours which could indicate underlying cirrhosis. 2. Apparent mild gallbladder wall thickening no evidence of cholelithiasis. 3. The common bile duct is at the upper limits of normal in size. Sergio Haro MD Breast Ultrasound 12/10/16 0000 Signed Impressions: Service Date/Time: Saturday, December 10, 2016 13:43 - CONCLUSION: Ill- defined hypoechoic area below the nipple with surrounding edema. The finding is nonspecific and could represent hemorrhage, fluid or infection. Sergio Haro MD Objective Remarks GENERAL: Alert, NAD. SKIN: Warm and dry. Large indurated area over left breast. HEAD: Normocephalic. EYES: No scleral icterus. No injection or drainage. NECK: Supple, trachea midline. No JVD or lymphadenopathy. CARDIOVASCULAR: Regular rate and rhythm without murmurs, gallops, or rubs. RESPIRATORY: Breath sounds equal bilaterally. No accessory muscle use. GASTROINTESTINAL: Abdomen soft, non-tender, nondistended. MUSCULOSKELETAL: No cyanosis. Edema in lower extremities resolved. BACK: Nontender without obvious deformity. No CVA tenderness. Procedures Transthoracic echocardiogram 12/12/2016 Poor echocardiographic windows Normal LV dimensions Normal LV systolic dysfunction estimated EF 60% There is moderate severe tricuspid regurgitation. There an echogenic linear structure in the RV please correlate clinically Vegetation cannot be excluded The estimated pulmonary arterial pressure is 33 mmHg. Medications and IVs Current Medications Medications (Trade) Dose Ordered Sig/Juan Route Start Time Stop Time Status Last Admin (Tylenol) 650 mg Q4H PRN PO 12/10/16 14:45 12/25/16 11:54 (Zofran Inj) 4 mg Q6H PRN IVP 12/10/16 14:45 (Narcan Inj) 0.4 mg UNSCH PRN IV 12/10/16 14:45 (Jasmine-Colace) 1 tab BID PO 12/10/16 21:00 12/25/16 10:01 (Milk Of Magnesia Liq) 30 ml Q12H PRN PO 12/10/16 14:45 (Senokot) 17.2 mg Q12H PRN PO 12/10/16 14:45 (Dulcolax Supp) 10 mg DAILY PRN RECTAL 12/10/16 14:45 (Lactulose Liq) 30 ml DAILY PRN PO 12/10/16 14:45 (Cordarone) 200 mg DAILY PO 12/11/16 09:00 12/25/16 12:51 (Norvasc) 5 mg DAILY PO 12/11/16 09:00 12/26/16 10:08 (Toprol Xl) 50 mg DAILY PO 12/11/16 09:00 12/24/16 08:55 Cefazolin Sodium 2000 mg/Sodium Chloride 100 ml @ 200 mls/hr Q12H IV 12/17/16 06:00 12/26/16 05:17 (NS Flush) 2 ml BID IV FLUSH 12/17/16 21:00 12/25/16 20:47 (NS Flush) 2 ml UNSCH PRN IV FLUSH 12/17/16 11:15 12/26/16 05:16 (Bacitracin Oint Packet) 0.9 gm UNSCH PRN TOP 12/18/16 17:00 (Percocet 5-325 Mg) 1 tab Q4H PRN PO 12/18/16 17:00 Pharmacy Profile Note 0 ml @ 0 mls/hr UNSCH OTHER 12/23/16 12:30 (Bumex Inj) 1 mg BID@09,18 IV PUSH 12/25/16 18:00 12/26/16 10:08 (NS Flush) See Protocol DAILY IV FLUSH 12/26/16 09:00 12/26/16 10:08 (NS Flush) See Protocol UNSCH PRN IV FLUSH 12/25/16 19:15 (Heparin Central Flush) See Protocol DAILY IV FLUSH 12/26/16 09:00 12/26/16 10:08 (Heparin Central Flush) See Protocol UNSCH PRN IV FLUSH 12/25/16 19:15 (NS Flush) UNSCH PRN IV FLUSH 12/25/16 19:15 Magnesium Sulfate/ Dextrose 100 ml @ 100 mls/hr Q1H IV 12/26/16 12:00 12/26/16 13:59 12/26/16 13:41 (K-Phos Neutral) 250 mg Q8HR PO 12/26/16 14:00 (Protonix) 40 mg DAILY PO 12/26/16 12:00 A/P Problem List: (1) Severe sepsis ICD Code: A41.9 - Sepsis, unspecified organism; R65.20 - Severe sepsis without septic shock Status: Resolved (2) Cellulitis of left breast ICD Code: N61.0 - Mastitis without abscess Status: Acute (3) HARVEY (acute kidney injury) ICD Code: N17.9 - Acute kidney failure, unspecified Status: Acute (4) Hyperkalemia ICD Code: E87.5 - Hyperkalemia Status: Resolved (5) AICD generator infection ICD Code: T82.7XXA - Infection and inflammatory reaction due to other cardiac and vascular devices, implants and grafts, initial encounter (6) Hypoxemia ICD Code: R09.02 - Hypoxemia (7) Anemia ICD Code: D64.9 - Anemia Status: Acute (8) Acute on chronic systolic (congestive) heart failure ICD Code: I50.23 - Acute on chronic systolic (congestive) heart failure Assessment and Plan Ms. Dailey is a 71-year-old female with a history of hypertension, hyperlipidemia, CAD, CHF, diabetes mellitus who presented to the emergency department today for an evaluation of her altered mental status. Daughters noted that patient was easily agitated and not herself since yesterday 12/09/2016. Patient was evaluated in the emergency department on 2016 for left breast swelling and pain. Patient was discharged with clindamycin and Tylenol 3 in the previous visit. On arrival to the patient has leukocytosis, fever, lactic acid 3.5. She also was found to have acute kidney injury. - Severe sepsis - Probable AICD-related infection - Probable endocarditis - MSSA bacteremia - SPCefepime 2g Q8hrs and Vancomycin. Currently on Cefazolin 1g Q12hrs. - Left breast ultrasound and gallbladder ultrasound reports reviewed. Left breast finding is concerning for hemorrhage, fluid or infection. - Infectious disease following. - Patient refused BORIS. EP and Cardiothoracic surgery following - device, lead extraction 12/18/2016. - WBC improved from 31.6K ==> 13.3K --> 10.7. - Blood culture from 12/17/2016 No growth to date. - INR 3.0 on 12/25/2016. - Right IJ line pulled 12/22/2016. - sp PICC line placement on 12/25. - 12/25 Ordered life vest. -Iron deficiency anemia- unknown source. - Patient denies any upper or lower GI bleed symptoms including no melena, hematochezia. - Hgb dropped to 6.8, status post 1 unit transfusion. Currently hemoglobin 7.9. - 12/26 hemoglobin dropped slightly from 7.9-7.2. Patient denies melena or hematochezia. Check iron studies which show iron deficiency anemia. We'll give IV iron dextran. Will transfuse if hemoglobin drops below 7. If stool guaiac positive will likely need GI eval. - Acute kidney injury - Baseline creatinine 0.99 on 11/28/2016. Creatinine on admission 1.49 ==> 2.04 ==> 1.48 - 12/26 creatinine trending down - today creatinine is 1.38. - Hyperkalemia -Potassium 5.7 on admission, now within normal range. Hyperkalemia resolved - Hypertension - CAD status post previous stent placements. - Ischemic cardiomyopathy - status post AICD placement about 2 years ago. - Acute on chronic Systoliccongestive heart failure - Ejection fraction in 2014 was 10-15%. - Continue amlodipine 5 mg with holding parameters. - Continue to Hold HUMBLE inhibitor for now. - Continue metoprolol succinate 50 mg daily with holding parameters - Discussed with Dr. Feliciano. Patient will require LifeVest on discharge. - Dc Bumex IV and switch to oral. - History of DVT - Currently on Warfarin, pharmacy to dose. - Hypoxemia - Likely secondary to congestive heart failure. Oxygen level dropping down to the high 80s on 12/25, now much improved and the patient is satting 97% on 2 L since her cannula. Patient failed home respiratory walk test. Will need home O2. Continue diuresis with Bumex. - Hypomagnesemia - Replace with IV magnesium sulfate. Continue to monitor magnesium. Full code. Warfarin. INR now 3.3. Discharge Planning Will DC once IV antibiotics arranged. Defibrillator vest ordered. Will go to home with [facility] as family not receptive to SNF. digital campaign manager to assist. Possible DC in am. Problem Qualifiers (1) AICD generator infection: Qualified Codes: T82.7XXA - Infection and inflammatory reaction due to other cardiac and vascular devices, implants and grafts, initial encounter [place] Pardo MD Dec 26, 2016 12:26
[2016-12-26] MEDS: MAGNESIUM SULFATE 1 GM PREMIX 100 ML IV SCH ×2 (13:41→16:00)
[2016-12-26 13:45] LABS: TRANSFERRIN IRON PROFILE 331 MG/DL (200-360)
[2016-12-26 13:47] LABS: FERRITIN 26 NG/ML (8-252)
--- NOTE | 2016-12-26 15:50 | HHI.FF ---
Infusion Therapy Location of Infusion Therapy: Home [facility] Care IV Infusion Order Patient Information Patient Weight 77.5 kg Diagnosis: Coded Allergies: penicillin G (Unverified Allergy, Severe, rash, 11/28/16) benazepril (Unverified Allergy, Mild, 11/28/16) HUMBLE inhibitor angioedema, swelling of the face lips and anterior tongue captopril (Unverified Allergy, Mild, 11/28/16) HUMBLE inhibitor angioedema, swelling of the face lips and anterior tongue enalaprilat (Unverified Allergy, Mild, 11/28/16) HUMBLE inhibitor angioedema, swelling of the face lips and anterior tongue fosinopril (Unverified Allergy, Mild, 11/28/16) HUMBLE inhibitor angioedema, swelling of the face lips and anterior tongue lisinopril (Unverified Allergy, Mild, 11/28/16) HUMBLE inhibitor angioedema, swelling of the face lips and anterior tongue quinapril (Unverified Allergy, Mild, 11/28/16) HUMBLE inhibitor angioedema, swelling of the face lips and anterior tongue Uncoded Allergies: NON COMPATIBLE PACEMAKER (Adverse Reaction, Severe, MRI PRECAUTION / PACEMAKER, 11/03/14) MRI PRECAUTION. PACEMAKER Administer Medication Cefazolin 2 grams IV q 8 hours Start Treatment: Dec 27, 2016 Stop Treatment: Jan 29, 2017 Additional Information Venous access: PICC Line Additional Instructions [x] Peripheral flush and dressing changes per protocol [x] Implanted port and central gasoline pump mechanic: * Implanted port: 10 ml Normal Saline followed by 5 ml Heparin 100 units/ml Heparin flush after each use and monthly to maintain. [] May leave port accessed during therapy. [] May leave peripheral site accessed for duration of therapy. [x] If patient has SOB or respiratory distress, check oxygen saturation. If less than 90% or clinical signs of respiratory distress, administer oxygen at 2 L/min. via nasal cannula and notify physician. [x] Anaphylaxis/Reaction orders: * Stop infusion. * Keep IV line open with saline flush. * Notify physician. * Monitor vital signs every 15 minutes until symptoms resolve. * Check Oxygen saturation; Oxygen at 2 L/min. via nasal cannula if less than 90% or clinical signs of respiratory distress. * Administer diphenhydramine (Benadryl) 25 mg IV STAT, (unless patient has received as pre-med). May repeat once, if necessary. * Solu-Cortef 250 mg IVP over 30-60 seconds, use 100 mg vials for each dissolution. * Epinephrine (1mg/1 ml) 0.3 mg subcutaneously or IVP now with any signs of respiratory distress. * Check with physician for new additional pre-med orders if patient is re- challenged or re-treated. [x] May remove PICC line when treatment complete, after confirming with Physician. [x] If the patient is admitted to the hospital, the ED, or transferred via [facility] , complete transfer form including medication reconciliation order sheet. Laboratory Tests Weekly Labs: CBC w/diff, Creatinine, LFT's (Hepatic function test), SED Rate Darleen Tamayo MD Dec 26, 2016 15:50
[2016-12-26] MEDS ORDERED: SOLU250I IV PUSH (15:52)
[2016-12-26] MEDS ORDERED: EPIN1INJ21 IV PUSH (15:52)
[2016-12-26] MEDS ORDERED: EPIN1INJ21 SQ (15:52)
[2016-12-26] MEDS ORDERED: CEFA2SOL IV (15:52)
[2016-12-26] MEDS: POTASSIUM PHOSPHATE/SODIUM PHOSPHATE 250 MG TAB PO SCH ×2 (17:12→21:47)
[2016-12-26] MEDS: PANTOPRAZOLE SOD 40 MG DELAYED RELEASE TAB PO SCH (17:13)
[2016-12-26] MEDS: IRON DEXTRAN 100 MG/2 ML VIAL IV PUSH SCH (17:13)
[2016-12-27] VITALS: BP 146/65; PULSE 84; RESP 20; TEMP 97.6; O2SAT 96
[2016-12-27 04:00] VITALS: BP 141/64; PULSE 83; RESP 20; TEMP 97.4; O2SAT 98
[2016-12-27 04:35] LABS: AUTOMATED NEUTROPHIL # 7.1 TH/MM3 (1.8-7.7); BASOPHIL # 0.1 TH/MM3 (0-0.2); BASOPHIL % 1.2 % (0.0-2.0); EOSINOPHIL # 0.1 TH/MM3 (0-0.4); EOSINOPHIL % 0.9 % (0.0-4.0); HEMATOCRIT 23.5 % (35.0-46.0); LYMPH % 6.8 % (9.0-44.0); LYMPHOCYTE # 0.6 TH/MM3 (1.0-4.8); MEAN CELL VOLUME 73.7 FL (80.0-100.0); MEAN CORPUSCULAR HGB CONC 31.2 % (32.0-36.0); MONO % 11.4 % (0.0-8.0); NEUT % 79.7 % (16.0-70.0); PLATELET COUNT 251 TH/MM3 (150-450); RED BLOOD COUNT 3.19 MIL/MM3 (4.00-5.30); RED CELL DISTRIBUTION WIDTH 27.8 % (11.6-17.2); WHITE BLOOD COUNT 8.9 TH/MM3 (4.0-11.0)
[2016-12-27 04:36] LABS: HEMO FLAGS AUTO DIFF
[2016-12-27 04:43] LABS: INTERNATIONAL NORMALIZED RATIO 2.7 RATIO
[2016-12-27] MEDS: POTASSIUM PHOSPHATE/SODIUM PHOSPHATE 250 MG TAB PO SCH ×2 (04:54→13:02)
[2016-12-27 04:59] LABS: ALT (GPT) LESS THAN 6 U/L (10-53); ANION GAP 7 MEQ/L (5-15); AST (GOT) 24 U/L (15-37); BICARBONATE 30.1 MEQ/L (21.0-32.0); BLOOD UREA NITROGEN 24 MG/DL (7-18); CHLORIDE 104 MEQ/L (98-107); GLOMERULAR FILTRATION RATE 54 ML/MIN (>89); MAGNESIUM 1.2 MG/DL (1.5-2.5); POTASSIUM 3.6 MEQ/L (3.5-5.1); SODIUM (NA) 141 MEQ/L (136-145)
[2016-12-27 05:02] LABS: ALKALINE PHOSPHATASE 108 U/L (45-117); TOTAL BILIRUBIN ADULT 1.7 MG/DL (0.2-1.0)
[2016-12-27] MEDS: SODIUM CHLORIDE 0.9% FLUSH 10 ML FLUSH IV FLUSH SCH ×2 (08:05)
[2016-12-27 08:06] VITALS: BP 143/65; PULSE 94; RESP 19; TEMP 97.8; O2SAT 93
[2016-12-27] MEDS: BUMETANIDE INJ 1 MG/4 ML VIAL IV PUSH SCH (08:22)
[2016-12-27] MEDS: METOPROLOL SUCCINATE 50 MG EXTENDED RELEASE TAB PO SCH (08:22)
[2016-12-27] MEDS: PANTOPRAZOLE SOD 40 MG DELAYED RELEASE TAB PO SCH (08:22)
[2016-12-27] MEDS: AMIODARONE 200 MG TAB PO SCH (08:22)
[2016-12-27] MEDS: DOCUSATE SODIUM 50 MG/SENNA 8.6 MG TAB PO SCH (08:22)
[2016-12-27] MEDS: amLODIPine BESYLATE 5 MG TAB PO SCH (08:22)
[2016-12-27] MEDS: IRON DEXTRAN 100 MG/2 ML VIAL IV PUSH SCH (09:47)
[2016-12-27 09:51] LABS: OVALOCYTES 1+ (NORMAL); TARGET CELLS 1+ (NORMAL)
[2016-12-27 09:52] LABS: SCAN/DIFF AUTO DIFF CONFIRMED
[2016-12-27 12:06] VITALS: BP 122/71; PULSE 65; RESP 18; TEMP 97.9; O2SAT 100
[2016-12-27] MEDS: ACETAMINOPHEN 325 MG TAB PO PRN (13:06)
[2016-12-27] MEDS ORDERED: COUM3TAB PO (15:00)
[2016-12-27] MEDS ORDERED: BUME2TAB PO (15:00)
[2016-12-27] MEDS ORDERED: K-TA10TA PO (15:00)
[2016-12-27] MEDS ORDERED: MAGN200T PO (15:00)
--- NOTE | 2016-12-27 15:11 | HHI.DS ---
Discharge Summary Admission Date Dec 10, 2016 at 14:41 Discharge Date: Dec 27, 2016 Admitting Diagnosis severe sepsis, left breast cellulitis vs abscess (1) Severe sepsis ICD Code: A41.9 - Sepsis, unspecified organism; R65.20 - Severe sepsis without septic shock Status: Resolved (2) Cellulitis of left breast ICD Code: N61.0 - Mastitis without abscess Status: Acute (3) HARVEY (acute kidney injury) ICD Code: N17.9 - Acute kidney failure, unspecified Status: Resolved (4) Hyperkalemia ICD Code: E87.5 - Hyperkalemia Status: Resolved (5) AICD generator infection ICD Code: T82.7XXA - Infection and inflammatory reaction due to other cardiac and vascular devices, implants and grafts, initial encounter (6) Hypoxemia ICD Code: R09.02 - Hypoxemia Status: Resolved (7) Anemia ICD Code: D64.9 - Anemia Status: Acute (8) Acute on chronic systolic (congestive) heart failure ICD Code: I50.23 - Acute on chronic systolic (congestive) heart failure Procedures Transthoracic echocardiogram 12/12/2016 Poor echocardiographic windows Normal LV dimensions Normal LV systolic dysfunction estimated EF 60% There is moderate severe tricuspid regurgitation. There an echogenic linear structure in the RV please correlate clinically Vegetation cannot be excluded The estimated pulmonary arterial pressure is 33 mmHg. Brief History - From Admission Ms. Dailey is a 71 year old female with a history of DM, HTN, CAD, CHF, DVT currently on warfarin who was brought to the emergency department due to altered mental status noted by her daughters. Since yesterday 12/09/2016 patient 's daughters noted that patient is not herself. She was getting irritated easily with other people. She just did not look right. She did not what day of the week it was. On 11/28/2016, patient came to the emergency department with left-sided breast pain and swelling. At that visit patient reported that somebody accidentally bumped her head into her left breast. Patient was discharged from emergency department with clindamycin and Tylenol No. 3. Patient's daughter does not know if patient was actually taking antibiotics are not. Per daughter, patient did not complain of any chest pain, shortness of breath, cough. No changes in bowel or bladder habits. On arrival to the emergency department today patient's temperature 101.9, pulse 112, respiration 18-26, blood pressure 113/70, pulse oximetry 88% on room air. WBC 31.6, hemoglobin 10.2, platelet 417, neutrophil 91.3%. Sodium 135, potassium 3.3, BUN 13, creatinine 1.49, GFR 42, random glucose 59, lactic acid 3.5. Total bilirubin 4.1. Left breast ultrasound shows ill-defined hypoechoic area below the nipple with surrounding edema. Chest x-ray showed mild pulmonary vascular congestion. Gallbladder ultrasound showed possible cirrhosis but otherwise unremarkable. CBC/BMP: 12/27/16 0405 12/27/16 0405 Significant Findings Laboratory Tests Test 12/25/16 08:06 12/25/16 15:10 12/26/16 06:50 12/27/16 04:05 Prothrombin Time 34.3 SEC (9.8-11.6) 38.2 SEC (9.8-11.6) 31.0 SEC (9.8-11.6) Red Blood Count 3.44 MIL/MM3 (4.00-5.30) 3.24 MIL/MM3 (4.00-5.30) 3.19 MIL/MM3 (4.00-5.30) Hemoglobin 7.9 GM/DL (11.6-15.3) 7.2 GM/DL (11.6-15.3) 7.3 GM/DL (11.6-15.3) Hematocrit 25.5 % (35.0-46.0) 24.0 % (35.0-46.0) 23.5 % (35.0-46.0) Mean Corpuscular Volume 74.2 FL (80.0-100.0) 74.2 FL (80.0-100.0) 73.7 FL (80.0-100.0) Mean Corpuscular Hemoglobin 22.8 PG (27.0-34.0) 22.3 PG (27.0-34.0) 23.0 PG (27.0-34.0) Mean Corpuscular Hemoglobin Concent 30.8 % (32.0-36.0) 30.0 % (32.0-36.0) 31.2 % (32.0-36.0) Red Cell Distribution Width 28.0 % (11.6-17.2) 28.0 % (11.6-17.2) 27.8 % (11.6-17.2) Neutrophils (%) (Auto) 70.8 % (16.0-70.0) 75.2 % (16.0-70.0) 79.7 % (16.0-70.0) Lymphocytes (%) (Auto) 8.8 % (9.0-44.0) 7.4 % (9.0-44.0) 6.8 % (9.0-44.0) Monocytes (%) (Auto) 17.8 % (0.0-8.0) 15.4 % (0.0-8.0) 11.4 % (0.0-8.0) Lymphocytes # (Auto) 0.6 TH/MM3 (1.0-4.8) 0.6 TH/MM3 (1.0-4.8) 0.6 TH/MM3 (1.0-4.8) Monocytes # (Auto) 1.2 TH/MM3 (0-0.9) 1.2 TH/MM3 (0-0.9) 1.0 TH/MM3 (0-0.9) Ovalocytes 1+ (NORMAL) 1+ (NORMAL) 1+ (NORMAL) Acanthocytes 1+ (NORMAL) Blood Urea Nitrogen 29 MG/DL (7-18) 28 MG/DL (7-18) 24 MG/DL (7-18) Creatinine 1.39 MG/DL (0.50-1.00) 1.38 MG/DL (0.50-1.00) 1.19 MG/DL (0.50-1.00) Random Glucose 114 MG/DL (74-106) 137 MG/DL (74-106) Albumin 2.4 GM/DL (3.4-5.0) 2.4 GM/DL (3.4-5.0) 2.5 GM/DL (3.4-5.0) Calcium Level 7.9 MG/DL (8.5-10.1) 7.6 MG/DL (8.5-10.1) 7.8 MG/DL (8.5-10.1) Phosphorus Level 2.2 MG/DL (2.5-4.9) 2.4 MG/DL (2.5-4.9) 1.9 MG/DL (2.5-4.9) Magnesium Level 1.1 MG/DL (1.5-2.5) 1.1 MG/DL (1.5-2.5) 1.2 MG/DL (1.5-2.5) Alanine Aminotransferase (ALT/SGPT) LESS THAN 6 U/L (10-53) LESS THAN 6 U/L (10-53) LESS THAN 6 U/L (10-53) Total Bilirubin 1.6 MG/DL (0.2-1.0) 1.5 MG/DL (0.2-1.0) 1.7 MG/DL (0.2-1.0) Estimat Glomerular Filtration Rate 45 ML/MIN (>89) 46 ML/MIN (>89) 54 ML/MIN (>89) Target Cells 2+ (NORMAL) 1+ (NORMAL) Iron Level 21 MCG/DL (50-170) Total Iron Binding Capacity 463 MCG/DL (250-450) Percent Iron Saturation 4.5 % (20-50) Imaging Last Impressions Chest X-Ray 12/25/16 0000 Signed Impressions: Service Date/Time: Sunday, December 25, 2016 19:02 - CONCLUSION: Right arm PICC has its tip in the superior vena cava. Improved failure, now mild. The patchy atelectasis/infiltrate of the left mid and upper lung also improved. Gregory Rivero MD Gall Bladder Ultrasound 12/10/16 1504 Signed Impressions: Service Date/Time: Saturday, December 10, 2016 15:21 - CONCLUSION: 1. The liver appears prominent and heterogeneous with lobular contours which could indicate underlying cirrhosis. 2. Apparent mild gallbladder wall thickening no evidence of cholelithiasis. 3. The common bile duct is at the upper limits of normal in size. Sergio Haro MD Breast Ultrasound 12/10/16 0000 Signed Impressions: Service Date/Time: Saturday, December 10, 2016 13:43 - CONCLUSION: Ill- defined hypoechoic area below the nipple with surrounding edema. The finding is nonspecific and could represent hemorrhage, fluid or infection. Sergio Haro MD PE at Discharge GENERAL: Alert, NAD. SKIN: Warm and dry. Large indurated area over left breast. HEAD: Normocephalic. EYES: No scleral icterus. No injection or drainage. NECK: Supple, trachea midline. No JVD or lymphadenopathy. CARDIOVASCULAR: Regular rate and rhythm without murmurs, gallops, or rubs. RESPIRATORY: Breath sounds equal bilaterally. No accessory muscle use. GASTROINTESTINAL: Abdomen soft, non-tender, nondistended. MUSCULOSKELETAL: No cyanosis. Edema in lower extremities resolved. BACK: Nontender without obvious deformity. No CVA tenderness. Pt update on day of discharge The patient denies chest pain or shortness of breath. Denies fevers or chills. Denies diarrhea, nausea, vomiting or abdominal pain. Hospital Course This is a 71-year-old female with a history of hypertension, hyperlipidemia, CAD, CHF, diabetes mellitus who presented to the emergency department for evaluation of abdomen to status. Patient's daughters noted that she was getting agitated. The patient was evaluated in the emergency department on for left breast swelling and pain. At the time the patient was discharged on clindamycin and Tylenol 3 in the ED visit prior to this admission. On arrival the patient presented leukocytosis, fever, elevated lactic acid level of 3.5 and also acute kidney injury. 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 The patient grew MSSA on blood cultures. ID was consulted the patient was started on cefepime 2 g IV every 8 hours as well as IV vancomycin, later infectious disease changed this to cefazolin 1 g every 12 hours. Patient had a left breast ultrasound which was concerning for hemorrhage, fluid or infection. The patient was offered a BORIS which she refused. BP and cardiac thoracic surgery also were consulted and the patient underwent a device, lead extraction on 12/18/16. Patient had very elevated leukocytosis of 30 1.6K which eventually trended down to normal. Repeat blood cultures obtained on 12/17/16 were negative. Right IJ pulled on . Patient had a PICC line placement and IV antibiotics to be received at home were ordered by infectious disease. The patient is to get cefazolin 2 g IV every 8 hours with stop date on 01/29/17. The patient also was found to have iron deficiency anemia, however she denied any GI bleeding symptoms including melena and hematochezia. Hemoglobin dropped during hospitalization to 6.8 and the patient required transfusion of 1 unit of packed red blood cells. Patient responded appropriately to the blood transfusion and hemoglobin remained stable. Iron studies consistent with iron deficiency anemia. Stool guaiac has been ordered however sample has not been obtained. The patient will need outpatient GI follow-up. Patient also was found to have acute kidney injury with a mildly elevated creatinine which peaked at 2.04 and was trending down with a creatinine of 1.19 on day of discharge. Patient had a potassium 5.7 which resolved after the patient was treated with diuretics. Patient's hypertension, CAD status post stent placement previously, ischemic cardiomyopathy with AICD placement about 2 years ago and was found to be an acute on chronic systolic congestive heart failure. Ejection fraction in 2014 was 10-15%. Patient's HUMBLE inhibitor was held because of increasing creatinine, beta radames continued, amlodipine continued. The case was discussed with Dr. Feliciano who recommended LifeVest on discharge. The patient's congestive heart failure was treated with IV Bumex twice a day which was switched to oral upon discharge. Patient was on warfarin for DVT prophylaxis and also history of CAD. Patient was found to be hypoxemic during hospital stay. This was likely secondary to congestive heart failure. He was noted that the patient's oxygen would drop to the high 80s on but it slowly improved after diuresis. However a home respiratory walk test was obtained and the patient failed it. The patient will be discharged to home with home oxygen. Hypomagnesemia: Replace with IV magnesium sulfate, the patient will be discharged home on oral magnesium. Patient remained full code during hospitalization. Pt Condition on Discharge: Stable Discharge Disposition: Disch w/ Home Health Serv Discharge Time: > 30 minutes Discharge Instructions DIET: Follow Instructions for: Diabetic Diet Activities you can perform: Regular-No Restrictions, See Additionl Instruction Other Activity Instructions: As instructed by PT Out of bed with assistance Follow up Referrals: Cardiology with Birgit Feliciano MD PCP Follow-up with Emily De La Cruz MD Surgical with Sondra Farias New Medications: Bumetanide (Bumetanide) 2 Mg Tab 2 MG PO DAILY for Shortness of Breath, #30 TAB 0 Refills Cefazolin Inj (Cefazolin Inj) 2 Gm/50 Ml Bagp 2 GM IV Q8H for Infection for 35 Days, BAG 0 Refills Defibrillator Jacket (Defibrillator Jacket) 1 Ea Device EA EXTERNAL ONCE, #1 Energy = 150 Joules; VT Threshold = 150 BPM; VF Threshold = 200 BPM Use up to 90 days only Epinephrine Inj (Epinephrine Inj) 1 Mg/Ml (1 Ml) Inj 0.3 MG IV PUSH ONCE PRN for ALLERGIC REACTION, #1 VIAL Epinephrine Inj (Epinephrine Inj) 1 Mg/Ml (1 Ml) Inj 0.3 MG SQ ONCE PRN for ALLERGIC REACTION, #1 VIAL Give with any signs of respiratory distress. Hydrocortisone Inj (Solu-Cortef Inj) 250 Mg/2 Ml Inj 250 MG IV PUSH ONCE PRN for ALLERGIC REACTION, #1 VIAL 0 Refills Give over 30-60 seconds. Oxygen (O2) (Oxygen (O2)) Inha LITER JENNIFER.CANULA CONTINUOUS for Prevent Hypoxemia, #3 Oxygen Concentrator Portable Gaseous 2 L/min via Nasal Canula Continuous For 99 months Warfarin (Coumadin) 3 Mg Tab 3 MG PO DAILY@1600 for Blood Clot Prevention, #30 TAB Continued Medications: Acetaminophen-Codeine (Tylenol-Codeine #3) 300-30 mg Tab 1 TAB PO Q4H PRN for PAIN, #10 TAB 0 Refills Amiodarone (Amiodarone) 200 Mg Tab 200 MG PO DAILY for Regulate Heart Beat, TAB 0 Refills Amlodipine (Amlodipine) 5 Mg Tab 5 MG PO DAILY for Blood Pressure Management, TAB 0 Refills Enalapril (Enalapril) 10 Mg Tab 10 MG PO BID, #60 TAB 0 Refills Ferrous Sulfate (Ferrous Sulfate) 325 Mg (65 Mg Iron) Tablet 325 MG PO BID for Nutritional Supplement, #60 TAB 0 Refills Hydrocodone-Acetaminophen (Montague) 5-325 mg Tab 1 TAB PO BID PRN for PAIN, TAB 0 Refills Isosorbide Mononitrate ER (Isosorbide Mononitrate ER) 30 Mg Raheem 30 MG PO DAILY for Prevent Chest Pain, #30 TAB 0 Refills Magnesium (Magnesium) 200 Mg Tab 400 MG PO DAILY for low magnesium, #10 TAB (This prescription has been renewed) Metoprolol Succinate ER 24 HR (Metoprolol Succinate ER 24 HR) 50 Mg Tab 50 MG PO DAILY, TAB 0 Refills Potassium Chloride ER (K-Tab) 10 Meq Tab 10 MEQ PO BID for Electrolyte Replacement, #62 TAB 0 Refills (This prescription has been renewed) Discontinued Medications: Bumetanide (Bumetanide) 2 Mg Tab 2 MG PO HS, TAB 0 Refills Clindamycin (Clindamycin) 300 Mg Cap 300 MG PO Q6H for Infection for 10 Days, CAP 0 Refills Nitrofurantoin Macrocrystal (Nitrofurantoin Macrocrystal) 100 Mg Cap 100 MG PO BID for Infection, CAP 0 Refills Warfarin (Warfarin) 4 Mg Tab 4 MG PO DAILY for Blood Clot Prevention, #30 TAB 0 Refills North Pardo MD Dec 27, 2016 15:11
[2016-12-27] MEDS ORDERED: FERR325T8 PO (15:31)
--- NOTE | 2016-12-27 15:31 | HHI.FF ---
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 My clinical findings support the need for the requested home health care services because: Patient has SOB Need for psychosocial assistance I certify that my clinical findings support that this patient is homebound because: Unsafe to leave home unassisted Unable to use public transportation Poor cardiac reserve North Pardo MD Dec 27, 2016 15:31
[2016-12-27] MEDS ORDERED: WARFARIN SOD 3 MG TAB PO SCH (16:00)
[2016-12-27 16:06] VITALS: BP 124/66; PULSE 68; RESP 18; TEMP 97.9; O2SAT 98
[2016-12-27] MEDS: MAGNESIUM SULFATE 1 GM PREMIX 100 ML IV SCH ×2 (16:52→16:53)
[2016-12-28] MEDS ORDERED: BUMETANIDE 1 MG TAB PO SCH (09:00)
== END 2016-12-27 20:08 | disposition home health service (06) | DRG 260 ==
LOC: NEPC 12:39 → NEDA 14:41 → N04B 16:35
PROVIDERS: ADMIT Hospitalist; ATTEND Hospitalist
PROC: 0JPT0PZ Removal of Cardiac Rhythm Related Device from Trunk Subcutaneous Tissue and Fascia, Open Approach (ICD-10-PCS; principal; 2016-12-18 14:31)
PROC: 02PA0MZ Removal of Cardiac Lead from Heart, Open Approach (ICD-10-PCS; 2016-12-18 14:31)
PROC: 30233N1 Transfusion of Nonautologous Red Blood Cells into Peripheral Vein, Percutaneous Approach (ICD-10-PCS; 2016-12-23)
PROC: 02HV33Z Insertion of Infusion Device into Superior Vena Cava, Percutaneous Approach (ICD-10-PCS; 2016-12-25)
DX: T82.7XXA Infection and inflammatory reaction due to other cardiac and vascular devices, implants and grafts, initial encounter (principal); I50.23 Acute on chronic systolic (congestive) heart failure; A41.01 Sepsis due to Methicillin susceptible Staphylococcus aureus; N17.0 Acute kidney failure with tubular necrosis; I33.0 Acute and subacute infective endocarditis; G93.41 Metabolic encephalopathy; E83.42 Hypomagnesemia; I07.1 Rheumatic tricuspid insufficiency; R65.20 Severe sepsis without septic shock; D50.9 Iron deficiency anemia, unspecified; F17.210 Nicotine dependence, cigarettes, uncomplicated; I11.0 Hypertensive heart disease with heart failure; Y83.1 Surgical operation with implant of artificial internal device as the cause of abnormal reaction of the patient, or of later complication, without mention of misadventure at the time of the procedure; I25.5 Ischemic cardiomyopathy; E87.6 Hypokalemia; N61.0 Mastitis without abscess; E87.5 Hyperkalemia; R09.02 Hypoxemia; E11.9 Type 2 diabetes mellitus without complications; I25.10 Atherosclerotic heart disease of native coronary artery without angina pectoris; E78.5 Hyperlipidemia, unspecified; Z86.718 Personal history of other venous thrombosis and embolism; Z95.5 Presence of coronary angioplasty implant and graft; Z79.01 Long term (current) use of anticoagulants; Z88.0 Allergy status to penicillin; Z88.8 Allergy status to other drugs, medicaments and biological substances
CPT/HCPCS: 36430; 36569; 71010; 76642; 76705; 76937; 80048; 80053; 80202; 81001; 82728; 82948; 83540; 83550; 83605; 83735; 84100; 84155; 85007; 85014; 85018; 85025; 85027; 85610; 86403; 86850; 86900; 86901; 86920; 87015; 87040; 87070; 87077; 87086; 87102; 87116; 87147; 87176; 87186; 87205; 87206; 87641; 93005; 93308; 94620; 94664; 96365; 96375; J0131; J0610; J0690; J0692; J1100; J1170; J1642; J1644; J1750; J1815; J1940; J2370; J2405; J2720; J3010; J3370; J3475; J3480; J7030; J7040; J7050; J7121; J7613; P9016

== ENCOUNTER 2016-12-31 18:50 | Inpatient (IN) | payer OTHER, MEDICARE ==
[~2016-12-31] VITALS: Ht 154.9 cm; Wt 82.5 kg
[~2016-12-31 18:50] MED LIST changes: +CEFA2SOL IV; -CLIN1CAP6 PO; +COUM3TAB PO; -COUM5TAB PO; +DEFIB EXTERNAL; +ENAL10TA PO; -ENAL20TA PO; +EPIN1INJ21 IV PUSH; +EPIN1INJ21 SQ; +FERR325T8 PO; -ISOS20TA PO; +ISOS30TA3 PO; +MAGN200T PO; -MEDR4PAK PO; +NORC5TAB PO; +OXYGEN NAS.CANULA; +SOLU250I IV PUSH; -ZOFR8TAB4 SL
[2016-12-31 18:53] VITALS: BP 121/59; PULSE 83; RESP 16; TEMP 97.9; O2SAT 93
--- NOTE | 2016-12-31 19:59 | PD ---
HPI Chief Complaint: Abnormal Results Time Seen by Provider: 19:53 Travel History International Travel<30 days: No Contact w/Intl Traveler<30days: No Traveled to known affect area: No History of Present Illness HPI 71-year-old Afro-[place] female presents the emergency department with her family with reports of anemia, and was requested to come here for possible transfusion by her PCP. Patient was recently discharged from the hospital on 27 December after prolonged hospitalization for sepsis and infection of pacemaker/defibrillator which was subsequently removed. Patient currently has a PICC line and receiving IV antibiotics at home. Patient hospital stay was complicated by microcytic anemia requiring 1 unit of RBCs. She was also started on home O2 for hypoxemia at rest and with ambulation. Patient was also treated for hypo-magnesium and hyponatremia as well as CHF while hospitalized and elevated creatinine. Currently she is not complaining of any pain or increased shortness of breath. She is currently on Bumex twice a day at home. Patient has multiple allergies, please see list. PFSH Past Medical History Hx Anticoagulant Therapy: Yes Arthritis: No Asthma: Yes Autoimmune Disease: No Blood Disorders: No Anxiety: No Depression: No Heart Rhythm Problems: No Cancer: No Cardiac Catheterization: Yes Cardiovascular Problems: Yes High Cholesterol: No Chemotherapy: No Chest Pain: No Congestive Heart Failure: Yes COPD: Yes Cerebrovascular Accident: No Diabetes: Yes Diminished Hearing: No Endocrine: Yes Gastrointestinal Disorders: No GERD: No Glaucoma: No Genitourinary: No Headaches: No Hepatitis: No Hiatal Hernia: No Hypertension: Yes Immune Disorder: No Kidney Stones: No Musculoskeletal: No Neurologic: No Psychiatric: No Reproductive: Yes (HX HYSTERECTOMY) Respiratory: Yes Integumentary: Yes (RIGHT BREAST LUMPECTOMY) Immunizations Current: Yes Migraines: No Myocardial Infarction: No Radiation Therapy: No Renal Failure: No Seizures: No Sickle Cell Disease: No Sleep Apnea: No Thyroid Disease: No Ulcer: No Menopausal: Yes Past Surgical History Abdominal Surgery: Yes (APPENDECTOMY) AICD: Yes Appendectomy: Yes Arteriovenous Shunt: No Cardiac Surgery: Yes (3 CARDIAC STENTS) Cholecystectomy: No Coronary Stent: Yes (x3) Ear Surgery: No Endocrine Surgery: No Eye Surgery: No Genitourinary Surgery: No Gynecologic Surgery: Yes (HYSTERECTOMY) Hysterectomy: Yes Insulin Pump: No Joint Replacement: No Oral Surgery: No Pacemaker: No Thoracic Surgery: No Other Surgery: Yes (defribillator,lumpectomny r breast) Social History Alcohol Use: No Tobacco Use: Yes ("SOMETIMES") Substance Use: No Allergies-Medications (Allergen,Severity, Reaction): Coded Allergies: penicillin G (Unverified Allergy, Severe, rash, 12/31/16) benazepril (Unverified Allergy, Mild, 12/31/16) HUMBLE inhibitor angioedema, swelling of the face lips and anterior tongue captopril (Unverified Allergy, Mild, 12/31/16) HUMBLE inhibitor angioedema, swelling of the face lips and anterior tongue enalaprilat (Unverified Allergy, Mild, 12/31/16) HUMBLE inhibitor angioedema, swelling of the face lips and anterior tongue fosinopril (Unverified Allergy, Mild, 12/31/16) HUMBLE inhibitor angioedema, swelling of the face lips and anterior tongue lisinopril (Unverified Allergy, Mild, 12/31/16) HUMBLE inhibitor angioedema, swelling of the face lips and anterior tongue quinapril (Unverified Allergy, Mild, 12/31/16) HUMBLE inhibitor angioedema, swelling of the face lips and anterior tongue Uncoded Allergies: NON COMPATIBLE PACEMAKER (Adverse Reaction, Severe, MRI PRECAUTION / PACEMAKER, 11/03/14) MRI PRECAUTION. PACEMAKER Reported Meds & Prescriptions Reported Meds & Active Scripts Active Ferrous Sulfate 325 Mg (65 Mg Iron) Tablet 325 Mg PO BID Bumetanide 2 Mg Tab 2 Mg PO DAILY Coumadin (Warfarin) 3 Mg Tab 3 Mg PO DAILY@1600 Magnesium 200 Mg Tab 400 Mg PO DAILY K-Tab (Potassium Chloride) 10 Meq Tab 10 Meq PO BID Epinephrine Inj 1 Mg/Ml (1 Ml) Inj 0.3 Mg SQ ONCE PRN Give with any signs of respiratory distress. Epinephrine Inj 1 Mg/Ml (1 Ml) Inj 0.3 Mg IV PUSH ONCE PRN Solu-Cortef Inj (Hydrocortisone Sodium Succinate) 250 Mg/2 Ml Inj 250 Mg IV PUSH ONCE PRN Give over 30-60 seconds. Cefazolin Inj (Cefazolin Sodium/Dextrose) 2 Gm/50 Ml Bagp 2 Gm IV Q8H 35 Days Oxygen (O2) (Miscellaneous Medication) Inha Liter JENNIFER.CANULA CONTINUOUS Oxygen Concentrator Portable Gaseous 2 L/min via Nasal Canula Continuous For 99 months Defibrillator Jacket (Device) 1 Ea Device Ea EXTERNAL ONCE Energy = 150 Joules; VT Threshold = 150 BPM; VF Threshold = 200 BPM Use up to 90 days only Tylenol-Codeine #3 (Acetaminophen-Codeine) 300-30 mg Tab 1 Tab PO Q4H PRN Reported [place] (Hydrocodone-Acetaminophen) 5-325 mg Tab 1 Tab PO BID PRN Isosorbide Mononitrate ER (Isosorbide Mononitrate) 30 Mg Raheem 30 Mg PO DAILY Enalapril (Enalapril Maleate) 10 Mg Tab 10 Mg PO BID Metoprolol Succinate ER 24 HR (Metoprolol Succinate) 50 Mg Tab 50 Mg PO DAILY Amlodipine (Amlodipine Besylate) 5 Mg Tab 5 Mg PO DAILY Amiodarone (Amiodarone HCl) 200 Mg Tab 200 Mg PO DAILY Review of Systems Except as stated in HPI: all other systems reviewed are Neg Physical Exam Narrative GENERAL: Patient appears in no acute distress. SKIN: Warm and dry. Normal color. Somewhat decreased turgor. Patient has multiple old bruising from previous IV's. Wound site over the left breast appears to be well healing without obvious signs of wound dehiscence or cellulitis. HEAD: Atraumatic. Normocephalic. EYES: Pupils equal and round. No scleral icterus. No injection or drainage. ENT: No nasal bleeding or discharge. Mucous membranes pink and moist. Pharynx is clear. Airway is patent. NECK: Trachea midline. No JVD. Supple and nontender. CARDIOVASCULAR: Regular rate and rhythm. No murmurs gallops or rubs appreciated RESPIRATORY: No accessory muscle use. Clear to auscultation. Breath sounds equal bilaterally. GASTROINTESTINAL: Abdomen soft, non-tender, nondistended. Hepatic and splenic margins not palpable. MUSCULOSKELETAL: Extremities without clubbing, cyanosis, or edema. No obvious deformities. NEUROLOGICAL: Awake and alert. No obvious cranial nerve deficits. Motor grossly within normal limits. Five out of 5 muscle strength in the arms and legs. Normal speech. PSYCHIATRIC: Appropriate mood and affect; insight and judgment normal. Data Data Last Documented VS Vital Signs Date Time Temp Pulse Resp B/P (MAP) Pulse Ox O2 Delivery O2 Flow Rate FiO2 12/31/16 20:32 74 16 116/59 (78) 99 Nasal Cannula 3.00 12/31/16 18:53 97.9 Orders Orders Complete Blood Count With Diff (12/31/16 19:59) Comprehensive Metabolic Panel (12/31/16 19:59) Lactic Acid (12/31/16 19:59) Prothrombin Time / Inr (Pt) (12/31/16 19:59) Act Partial Throm Time (Ptt) (12/31/16 19:59) Iv Access Insert/Monitor (12/31/16 19:59) Ecg Monitoring (12/31/16 19:59) Oximetry (12/31/16 19:59) Sodium Chloride 0.9% Flush (Ns Flush) (12/31/16 20:00) Electrocardiogram (12/31/16 19:59) Chest, Single Ap (12/31/16 19:59) Type And Screen (12/31/16 19:59) B-Type Natriuretic Peptide (12/31/16 20:03) Magnesium (Mg) (12/31/16 20:03) Bumetanide Inj (Bumex Inj) (12/31/16 21:15) Blood Product Administration (12/31/16 21:05) Sodium Chlor 0.9% 250 Ml Inj (Ns 250 Ml (12/31/16 21:15) Diphenhydramine Inj (Benadryl Inj) (12/31/16 21:15) Acetaminophen (Tylenol) (12/31/16 21:15) Labs Laboratory Tests Test 12/31/16 20:00 12/31/16 20:15 White Blood Count 6.9 TH/MM3 Red Blood Count 3.03 MIL/MM3 Hemoglobin 7.2 GM/DL Hematocrit 22.9 % Mean Corpuscular Volume 75.4 FL Mean Corpuscular Hemoglobin 23.7 PG Mean Corpuscular Hemoglobin Concent 31.4 % Red Cell Distribution Width 28.1 % Platelet Count 237 TH/MM3 Mean Platelet Volume 7.0 FL Neutrophils (%) (Auto) 71.2 % Lymphocytes (%) (Auto) 9.0 % Monocytes (%) (Auto) 16.5 % Eosinophils (%) (Auto) 2.2 % Basophils (%) (Auto) 1.1 % Neutrophils # (Auto) 4.9 TH/MM3 Lymphocytes # (Auto) 0.6 TH/MM3 Monocytes # (Auto) 1.1 TH/MM3 Eosinophils # (Auto) 0.2 TH/MM3 Basophils # (Auto) 0.1 TH/MM3 CBC Comment AUTO DIFF Prothrombin Time 16.7 SEC Prothromb Time International Ratio 1.5 RATIO Activated Partial Thromboplast Time 34.7 SEC Blood Urea Nitrogen 21 MG/DL Creatinine 1.23 MG/DL Random Glucose 86 MG/DL Total Protein 7.8 GM/DL Albumin 2.4 GM/DL Calcium Level 7.9 MG/DL Alkaline Phosphatase 140 U/L Aspartate Amino Transf (AST/SGOT) 45 U/L Alanine Aminotransferase (ALT/SGPT) 7 U/L Total Bilirubin 1.3 MG/DL Sodium Level 141 MEQ/L Potassium Level 3.6 MEQ/L Chloride Level 104 MEQ/L Carbon Dioxide Level 31.3 MEQ/L Anion Gap 6 MEQ/L Estimat Glomerular Filtration Rate 52 ML/MIN Magnesium Level 1.3 MG/DL B-Type Natriuretic Peptide 1797 PG/ML Lactic Acid Level 1.0 mmol/L MDM Medical Decision Making Medical Screen Exam Complete: Yes Emergency Medical Condition: Yes Medical Record Reviewed: Yes Differential Diagnosis Anemia. Hypomagnesemia. Hyponatremia. CHF. Narrative Course Patient appears medically stable at time of exam. Labs ordered including CBC, CMP, coagulation studies, proBNP, and magnesium. Type and screen of 2 units is ordered. EKG and chest x-ray are ordered. Chest x-ray shows possible CHF versus effusion in the left with enlarged cardiac silhouette per radiologist. CBC shows microcytic anemia with a hemoglobin of 7.2 which is slightly lower than her discharge hemoglobin is 7.3. CMP shows creatinine is holding steady, no other significant findings other than a proBNP of 1742. Patient is discussed with Dr. Burroughs feels the patient warrants admission for observation and diuresis in conjunction with her transfusion of 2 units red blood cells. 2100 hrs. call was placed to the hospitalist for admission. Diagnosis Primary Impression: Iron deficiency anemia Qualified Codes: D50.9 - Iron deficiency anemia, unspecified Additional Impressions: Hypoxemia Acute on chronic systolic (congestive) heart failure Admitting Information Admitting Physician Requests: Observation Condition: Stable Dallas Sampson Dec 31, 2016 19:59
[2016-12-31] MEDS ORDERED: SODIUM CHLORIDE 0.9% FLUSH 10 ML FLUSH IV FLUSH PRN (20:00)
[2016-12-31 20:28] LABS: AUTOMATED NEUTROPHIL # 4.9 TH/MM3 (1.8-7.7); BASOPHIL # 0.1 TH/MM3 (0-0.2); BASOPHIL % 1.1 % (0.0-2.0); EOSINOPHIL # 0.2 TH/MM3 (0-0.4); EOSINOPHIL % 2.2 % (0.0-4.0); HEMATOCRIT 22.9 % (35.0-46.0); LYMPHOCYTE # 0.6 TH/MM3 (1.0-4.8); MEAN CELL VOLUME 75.4 FL (80.0-100.0); MEAN CORPUSCULAR HEMOGLOBIN 23.7 PG (27.0-34.0); MEAN CORPUSCULAR HGB CONC 31.4 % (32.0-36.0); MONO % 16.5 % (0.0-8.0); NEUT % 71.2 % (16.0-70.0); PLATELET COUNT 237 TH/MM3 (150-450); RED BLOOD COUNT 3.03 MIL/MM3 (4.00-5.30); RED CELL DISTRIBUTION WIDTH 28.1 % (11.6-17.2); WHITE BLOOD COUNT 6.9 TH/MM3 (4.0-11.0)
[2016-12-31 20:30] LABS: HEMO FLAGS AUTO DIFF
[2016-12-31 20:32] VITALS: BP 116/59; PULSE 74; RESP 16; O2SAT 99
[2016-12-31 20:47] LABS: APTT (PATIENT) 34.7 SEC (24.3-30.1); INTERNATIONAL NORMALIZED RATIO 1.5 RATIO; PROTHROMBIN TIME - PATIENT 16.7 SEC (9.8-11.6)
[2016-12-31 20:49] LABS: ANION GAP 6 MEQ/L (5-15); AST (GOT) 45 U/L (15-37); BICARBONATE 31.3 MEQ/L (21.0-32.0); BLOOD UREA NITROGEN 21 MG/DL (7-18); CHLORIDE 104 MEQ/L (98-107); GLOMERULAR FILTRATION RATE 52 ML/MIN (>89); POTASSIUM 3.6 MEQ/L (3.5-5.1); SODIUM (NA) 141 MEQ/L (136-145)
[2016-12-31 20:50] LABS: ALT (GPT) 7 U/L (10-53)
--- NOTE | 2016-12-31 20:51 | RADRPT ---
EXAM DATE/TIME: 12/31/2016 20:07 [facility] COMPARISON: CHEST SINGLE AP, December 25, 2016, 19:02. INDICATIONS : Cough. MEDICAL HISTORY : Hypertension. Congestive heart failure. COPD. Asthma. Diabetes. SURGICAL HISTORY : Pacemaker. Appendectomy. Hysterectomy. Cardiac cath. Cataracts. Cardiac stents. ENCOUNTER: Initial ACUITY: 1 day PAIN SCORE: 0/10 LOCATION: Bilateral chest FINDINGS: The cardiac silhouette is enlarged. There is a right subclavian line in place with the tip overlying the SVC. There is increased density seen throughout much the left chest likely related to some degree of effusion and consolidation/atelectasis. The right lung is grossly clear. CONCLUSION: 1. Cardiomegaly 2. Left lung increased density related to some degree of effusion and consolidation/atelectasis. Gregory Perry MD on December 31, 2016 at 20:46 Board Certified Radiologist. This report was verified electronically.
[2016-12-31 20:52] LABS: ALKALINE PHOSPHATASE 140 U/L (45-117); TOTAL BILIRUBIN ADULT 1.3 MG/DL (0.2-1.0)
[2016-12-31] MEDS ORDERED: diphenhydrAMINE HCL 50 MG/ML VIAL IV PUSH ONE (21:15)
[2016-12-31] MEDS ORDERED: BUMETANIDE INJ 1 MG/4 ML VIAL IV PUSH ONE (21:15)
[2016-12-31] MEDS ORDERED: ACETAMINOPHEN 325 MG TAB PO ONE (21:15)
[2016-12-31] MEDS ORDERED: SODIUM CHLOR 0.9% 250 ML INJ 250 ML IV ONE ×2 (21:15→21:30)
[2016-12-31 21:29] LABS: SCAN/DIFF AUTO DIFF CONFIRMED
[2016-12-31] MEDS ORDERED: NALOXONE HCL 0.4 MG/ML AMP IV PUSH PRN (21:30)
[2016-12-31] MEDS ORDERED: MAGNESIUM OXIDE 400 MG TAB PO ONE (22:00)
[2016-12-31 22:40] VITALS: BP 122/59; PULSE 77; RESP 17; TEMP 97.6; O2SAT 96
[2016-12-31 22:48] VITALS: BP 122/59; PULSE 77; RESP 17; TEMP 97.6; O2SAT 97
--- NOTE | 2016-12-31 23:53 | HHI.HP ---
[facility] Primary Care Physician Emily De La Cruz MD Admission Diagnosis CHF/Anemia Diagnoses: Travel History International Travel<30 Days: No Contact w/Intl Traveler <30 Da: No Traveled to Known Affected Are: No History of Present Illness was called back to come for abnormal lab test from hospital for low blood count no fever no chest pain or no palpitations no dizziness no syncope no nausea, no vomiting denies other symptoms Review of Systems Except as stated in HPI: all other systems reviewed are Neg Past Family Social History Past Medical History htn dm chf afib on coumadin copd on home oxygen Past Surgical History breast surgery ppm placement right breast lumpectomy appendectomy cholecystectomy hysterectomy Allergies: Coded Allergies: penicillin G (Unverified Allergy, Severe, rash, 12/31/16) benazepril (Unverified Allergy, Mild, 12/31/16) HUMBLE inhibitor angioedema, swelling of the face lips and anterior tongue captopril (Unverified Allergy, Mild, 12/31/16) HUMBLE inhibitor angioedema, swelling of the face lips and anterior tongue enalaprilat (Unverified Allergy, Mild, 12/31/16) HUMBLE inhibitor angioedema, swelling of the face lips and anterior tongue fosinopril (Unverified Allergy, Mild, 12/31/16) HUMBLE inhibitor angioedema, swelling of the face lips and anterior tongue lisinopril (Unverified Allergy, Mild, 12/31/16) HUMBLE inhibitor angioedema, swelling of the face lips and anterior tongue quinapril (Unverified Allergy, Mild, 12/31/16) HUMBLE inhibitor angioedema, swelling of the face lips and anterior tongue Uncoded Allergies: NON COMPATIBLE PACEMAKER (Adverse Reaction, Severe, MRI PRECAUTION / PACEMAKER, 11/03/14) MRI PRECAUTION. PACEMAKER Family History none that she knows of - but was quite sleepy and not in the mood to answer Social History used to smoke, quit about a month ago denies etoh abuse or drug abuse Physical Exam Vital Signs Vital Signs Date Time Temp Pulse Resp B/P (MAP) Pulse Ox O2 Delivery O2 Flow Rate FiO2 12/31/16 22:48 97.6 77 17 122/59 97 12/31/16 22:40 97.6 77 17 122/59 (80) 96 12/31/16 20:32 74 16 116/59 (78) 99 Nasal Cannula 3.00 12/31/16 18:53 97.9 83 16 121/59 (79) 93 Room Air Physical Exam GENERAL: This is a well-nourished, well-developed patient, in no apparent distress. SKIN: No rashes, ecchymoses or lesions. Cool and dry. HEAD: Atraumatic. Normocephalic. No temporal or scalp tenderness. EYES: No scleral icterus. No injection or drainage. ENT: Nose without bleeding, purulent drainage or septal hematoma. Airway patent. NECK: Trachea midline. No JVD or lymphadenopathy. Supple, nontender, no meningeal signs. CARDIOVASCULAR: Regular rate and rhythm without murmurs, gallops, or rubs. RESPIRATORY: Clear to auscultation. Breath sounds equal bilaterally. No wheezes , rales, or rhonchi. GASTROINTESTINAL: Abdomen soft, non-tender, nondistended. No guarding. MUSCULOSKELETAL: Extremities without clubbing, cyanosis, or edema. No calf tenderness. NEUROLOGICAL: Awake and alert. Motor and sensory grossly within normal limits. Normal speech. Laboratory Laboratory Tests Test 12/31/16 20:00 12/31/16 20:15 White Blood Count 6.9 Red Blood Count 3.03 Hemoglobin 7.2 Hematocrit 22.9 Mean Corpuscular Volume 75.4 Mean Corpuscular Hemoglobin 23.7 Mean Corpuscular Hemoglobin Concent 31.4 Red Cell Distribution Width 28.1 Platelet Count 237 Mean Platelet Volume 7.0 Neutrophils (%) (Auto) 71.2 Lymphocytes (%) (Auto) 9.0 Monocytes (%) (Auto) 16.5 Eosinophils (%) (Auto) 2.2 Basophils (%) (Auto) 1.1 Neutrophils # (Auto) 4.9 Lymphocytes # (Auto) 0.6 Monocytes # (Auto) 1.1 Eosinophils # (Auto) 0.2 Basophils # (Auto) 0.1 CBC Comment AUTO DIFF Differential Comment AUTO DIFF CONFIRMED Prothrombin Time 16.7 Prothromb Time International Ratio 1.5 Activated Partial Thromboplast Time 34.7 Blood Urea Nitrogen 21 Creatinine 1.23 Random Glucose 86 Total Protein 7.8 Albumin 2.4 Calcium Level 7.9 Alkaline Phosphatase 140 Aspartate Amino Transf (AST/SGOT) 45 Alanine Aminotransferase (ALT/SGPT) 7 Total Bilirubin 1.3 Sodium Level 141 Potassium Level 3.6 Chloride Level 104 Carbon Dioxide Level 31.3 Anion Gap 6 Estimat Glomerular Filtration Rate 52 Magnesium Level 1.3 B-Type Natriuretic Peptide 1797 Lactic Acid Level 1.0 Result Diagram: 12/31/16199912/31/161999 Caprini VTE Risk Assessment Caprini VTE Risk Assessment: Mod/High Risk (score >= 2) Caprini Risk Assessment Model Point Value = 1 Point Value = 2 Point Value = 3 Point Value = 5 Age 41-60 Minor surgery BMI > 25 kg/m2 Swollen legs Varicose veins or History of unexplained or recurrent spontaneous Oral contraceptives or hormone replacement Sepsis (< 1 month) Serious lung disease, including pneumonia (< 1 month) Abnormal pulmonary function Acute myocardial infarction Congestive heart failure (< 1 month) History of inflammatory bowel disease Medical patient at bed rest Age 61-74 Arthroscopic surgery Major open surgery (> 45 min) Laparoscopic surgery (> 45 min) Malignancy Confined to bed (> 72 hours) Immobilizing plaster cast Central venous access Age >= 75 History of VTE Family history of VTE Factor V Leiden Prothrombin [id number] Lupus anticoagulant Anticardiolipin antibodies Elevated serum homocysteine Heparin-induced thrombocytopenia Other congenital or acquired thrombophilia Stroke (< 1 month) Elective arthroplasty Hip, pelvis, or leg fracture Acute spinal cord injury (< 1 month) Prophylaxis Regimen Total Risk Factor Score Risk Level Prophylaxis Regimen 0-1 Low Early ambulation 2 Moderate Order ONE of the following: *Sequential Compression Device (SCD) *Heparin 5000 units SQ BID 3-4 Higher Order ONE of the following medications: *Heparin 5000 units SQ TID *Enoxaparin/Lovenox 40 mg SQ daily (WT < 150 kg, CrCl > 30 mL/min) *Enoxaparin/Lovenox 30 mg SQ daily (WT < 150 kg, CrCl > 10-29 mL/min) *Enoxaparin/Lovenox 30 mg SQ BID (WT < 150 kg, CrCl > 30 mL/min) AND/OR *Sequential Compression Device (SCD) 5 or more Highest Order ONE of the following medications: *Heparin 5000 units SQ TID (Preferred with Epidurals) *Enoxaparin/Lovenox 40 mg SQ daily (WT < 150 kg, CrCl > 30 mL/min) *Enoxaparin/Lovenox 30 mg SQ daily (WT < 150 kg, CrCl > 10-29 mL/min) *Enoxaparin/Lovenox 30 mg SQ BID (WT < 150 kg, CrCl > 30 mL/min) AND *Sequential Compression Device (SCD) Assessment and Plan Assessment and Plan Impression: anemia- questionable symptoms as poor historian. Previous hospitalization workup shows iron deficiency, no evidence of occult blood. Dyspnea. Multifactorial. Questionable symptomatic anemia, CHF exacerbation, pneumonia Sleep apnea? Hypokalemia BNP elevation Hypermagnesemia Left lung consolidation Subtherapeutic INR Plan: Transfuse 1 unit of PRBC. Bumex 1 mg IV before and after the transfusion. Otherwise resume home dose of Bumex by mouth. Resume anticoagulation as patient has no evidence of acute blood loss. Resume rest of her home medications. Would also obtain CT chest to further evaluate her dyspnea. Possible consolidation. Start on Levaquin by mouth. DVT prophylaxis on Coumadin Discussed Condition With patient, er , nursing staff Linda Butler MD Dec 31, 2016 23:53
[2017-01-01] VITALS (9 sets, daily range): BP systolic 117–140; BP diastolic 57–71; PULSE 64–79; RESP 14–21; TEMP 97.1–98; O2SAT 94–100
[2017-01-01] MEDS ORDERED: POTASSIUM CHLORIDE 20 MEQ CONTROLLED RELEASE TAB PO ONE (00:30)
[2017-01-01] MEDS ORDERED: BUMETANIDE INJ 1 MG/4 ML VIAL IV PUSH ONE (00:30)
[2017-01-01] MEDS ORDERED: ACETAMINOPHEN/HYDROcodone 325 MG/5 MG TAB PO PRN (01:15)
[2017-01-01] MEDS ORDERED: ceFAZolin 2 GM/50 ML BAG IV SCH (01:15)
[2017-01-01] MEDS: ceFAZolin 2 GM PREMIX 50 ML IV SCH ×3 (01:58→18:25)
[2017-01-01 07:08] LABS: AUTOMATED NEUTROPHIL # 4.6 TH/MM3 (1.8-7.7); BASOPHIL # 0.1 TH/MM3 (0-0.2); BASOPHIL % 1.2 % (0.0-2.0); EOSINOPHIL # 0.2 TH/MM3 (0-0.4); EOSINOPHIL % 2.4 % (0.0-4.0); HEMATOCRIT 28.1 % (35.0-46.0); LYMPH % 8.6 % (9.0-44.0); LYMPHOCYTE # 0.6 TH/MM3 (1.0-4.8); MEAN CELL VOLUME 77.5 FL (80.0-100.0); MEAN CORPUSCULAR HEMOGLOBIN 24.8 PG (27.0-34.0); MONO % 18.1 % (0.0-8.0); NEUT % 69.7 % (16.0-70.0); PLATELET COUNT 211 TH/MM3 (150-450); RED BLOOD COUNT 3.62 MIL/MM3 (4.00-5.30); RED CELL DISTRIBUTION WIDTH 27.5 % (11.6-17.2); WHITE BLOOD COUNT 6.6 TH/MM3 (4.0-11.0)
[2017-01-01 07:10] LABS: BICARBONATE 31.2 MEQ/L (21.0-32.0); POTASSIUM 4.1 MEQ/L (3.5-5.1)
[2017-01-01 07:14] LABS: CREATINE KINASE 76 U/L (26-192)
[2017-01-01 07:22] LABS: HEMO FLAGS AUTO DIFF
[2017-01-01 08:44] LABS: OVALOCYTES 1+ (NORMAL); SCAN/DIFF AUTO DIFF CONFIRMED; TARGET CELLS 1+ (NORMAL)
[2017-01-01] MEDS: FERROUS SULFATE 325 MG (65 MG ELEMENTAL IRON) TAB PO SCH ×2 (09:00→22:10)
[2017-01-01] MEDS: amLODIPine BESYLATE 5 MG TAB PO SCH (09:27)
[2017-01-01] MEDS: LEVOFLOXACIN 750 MG TAB PO SCH (09:27)
[2017-01-01] MEDS: AMIODARONE 200 MG TAB PO SCH (09:28)
[2017-01-01] MEDS: ENALAPRIL MALEATE 10 MG TAB PO SCH ×2 (09:28→22:10)
[2017-01-01] MEDS: BUMETANIDE 1 MG TAB PO SCH (09:28)
[2017-01-01] MEDS: MAGNESIUM OXIDE 400 MG TAB PO SCH (09:30)
[2017-01-01] MEDS: METOPROLOL SUCCINATE 50 MG EXTENDED RELEASE TAB PO SCH (09:30)
[2017-01-01] MEDS: SODIUM CHLORIDE 0.9% FLUSH 10 ML FLUSH IV FLUSH SCH ×2 (09:30→22:10)
[2017-01-01] MEDS: POTASSIUM CHLORIDE 10 MEQ CONTROLLED RELEASE TAB PO SCH ×2 (09:30→22:11)
--- NOTE | 2017-01-01 10:03 | EKG ---
Date Performed: 01/01/2017 Time Performed: 02:24:25 PTAGE: 71 years EKG: Sinus rhythm WITH OCCASIONAL ECTOPIC PREMATURE COMPLEXES INDETERMINATE AXIS LOW QRS VOLTAGE IN EXTREMITY LEADS AB NORMAL ECG PREVIOUS TRACING : 12/31/2016 20.40 DOCTOR: Tyrone Walters Interpretating Date/Time 01/01/2017 10:02:31
--- NOTE | 2017-01-01 10:20 | EKG ---
Date Performed: 12/31/2016 Time Performed: 20:40:40 PTAGE: 71 years EKG: Sinus rhythm WITH OCCASIONAL ECTOPIC PREMATURE COMPLEXES LOW QRS VOLTAGE ABNORMAL ECG PREVIOUS TRACING : 12/22/2016 16.50 DOCTOR: Tyrone Walters Interpretating Date/Time 01/01/2017 10:18:39
[2017-01-01] MEDS: WARFARIN SOD 3 MG TAB PO SCH (16:33)
[2017-01-01 18:26] LABS: CREATINE KINASE 85 U/L (26-192)
[2017-01-01] MEDS ORDERED: methylPREDNISolone SOD SUCC 125 MG/2 ML VIAL IV PUSH ONE (19:15)
--- NOTE | 2017-01-01 19:19 | HHI.PR ---
Subjective Remarks patient c/o sob denies chest pain denies fevers and chills having elevated requirements of oxygen Objective Vitals Vital Signs Date Time Temp Pulse Resp B/P (MAP) Pulse Ox O2 Delivery O2 Flow Rate FiO2 01/01/17 16:00 97.1 66 21 138/65 (89) 100 01/01/17 11:52 97.5 64 18 117/57 (77) 94 01/01/17 08:04 97.5 68 17 140/67 (91) 95 01/01/17 03:21 98.0 67 17 136/65 98 12/31/16 22:48 97.6 77 17 122/59 97 12/31/16 22:40 97.6 77 17 122/59 (80) 96 12/31/16 20:32 74 16 116/59 (78) 99 Nasal Cannula 3.00 I/O 12/31/16 12/31/16 12/31/16 01/01/17 01/01/17 01/01/17 07:00 15:00 23:00 07:00 15:00 23:00 Intake Total 5 ml 650 ml 50 ml Balance 5 ml 650 ml 50 ml Intake IV Total 50 ml Packed Cells 650 ml Blood Product IV Normal Saline Flush 5 ml # Voids 1 Result Diagram: 01/01/1739 01/01/1739 Imaging Last Impressions Chest X-Ray 12/31/161958 Signed Impressions: Service Date/Time: Saturday, December 31, 2016 20:07 - CONCLUSION: 1. Cardiomegaly 2. Left lung increased density related to some degree of effusion and consolidation/atelectasis. Gregory Perry MD Objective Remarks AAOx3 mild to moderate distress due to sob patient is using accessory muscles of respiration Patient has very diminished breath sounds on BL lung exam there is +1 pitting edemal in lower extremities no cyanosis Medications and IVs Current Medications Medications (Trade) Dose Ordered Sig/Juan Route Start Time Stop Time Status Last Admin (NS Flush) 2 ml UNSCH PRN IV FLUSH 12/31/16 21:30 01/02/17 06:23 (NS Flush) 2 ml BID IV FLUSH 01/01/17 09:00 01/02/17 10:07 (Narcan Inj) 0.4 mg UNSCH PRN IV PUSH 12/31/16 21:30 (Cordarone) 200 mg DAILY PO 01/01/17 09:00 01/02/17 10:06 (Norvasc) 5 mg DAILY PO 01/01/17 09:00 01/02/17 10:06 (Bumetanide) 2 mg DAILY PO 01/01/17 09:00 01/02/17 10:06 (Vasotec) 10 mg BID PO 01/01/17 09:00 01/02/17 10:06 (Ferrous Sulfate) 325 mg BID PO 01/01/17 09:00 01/02/17 10:06 ([place] 5-325 Mg) 1 tab BID PRN PO 01/01/17 01:15 (Toprol Xl) 50 mg DAILY PO 01/01/17 09:00 01/02/17 10:06 (KCl) 10 meq BID PO 01/01/17 09:00 01/02/17 10:06 (Coumadin) 3 mg DAILY@1600 PO 01/01/17 16:00 01/01/17 16:33 (Mag-Ox) 400 mg DAILY PO 01/01/17 09:00 01/02/17 10:06 Cefazolin Sodium/ Dextrose 50 ml @ 100 mls/hr Q8H IV 01/01/17 02:00 01/02/17 10:07 (Levaquin) 750 mg DAILY PO 01/01/17 09:00 01/02/17 10:06 (SoluMEDROL INJ) 60 mg Q6HR IV 01/02/17 00:00 01/02/17 06:22 (Duoneb Neb) 1 ampule Q6HR WHILE AWAKE NEB NEB 01/01/17 20:00 01/02/17 07:27 (Duoneb Neb) 1 ampule Q2HR NEB PRN NEB 01/01/17 19:30 Urinary Catheter: No Vascular Central Line Catheter: No A/P Problem List: (1) Symptomatic anemia ICD Code: D64.9 - Anemia, unspecified Plan: The patient presented with shortness of breath and dyspnea. The patient status post infusional 1 unit of packed blood cells. No evidence of acute blood loss Check stool Hemoccult (2) Iron deficiency anemia ICD Code: D50.9 - Iron deficiency anemia, unspecified Plan: Upon review of records on recent admission the patient had iron studies which were consistent with iron deficiency anemia. At the time the patient was discharged to follow-up with gastroenterology. I will consult GI for evaluation for EGD/colonoscopy. (3) CHF (congestive heart failure) ICD Code: I50.9 - CHF (congestive heart failure) Status: Chronic Plan: The patient has an elevated BNP, however given the patient's elevated creatinine and possible chronic kidney disease, this could be falsely elevated. Upon review of the previous records the patient has had a chronically elevated BNP with the lowest number being in the low 1600s. Patient's recent echocardiogram obtained on 12/12/16 shows a normal left ventricular systolic function EF of 60%. I believe the patient's shortness of breath is secondary to a COPD exacerbation more than an acute congestive heart failure. (4) CKD (chronic kidney disease), stage III ICD Code: N18.3 - Chronic kidney disease, stage 3 (moderate) Plan: Upon review of records the patient has had consistently elevated creatinine for this year. The most recent creatinine that I can find dates back to December 2014 and it was 0.79. Possibly some degree of sick kidney stage III. Continue to monitor BUN/creatinine, strict I's and O's and avoid nephrotoxins (5) COPD with acute exacerbation ICD Code: J44.1 - Chronic obstructive pulmonary disease with (acute) exacerbation Plan: Patient with very diminished air entry and diffuse bilateral expiratory wheezing on lung exam. I will start the patient on IV steroids, I will give IV Solu-Medrol 125 mg IV 1 and continue 60 mg IV every 6 hours. Continue IV Levaquin that was started for possible pneumonia as described on chest x-ray above. Continue supplemental oxygen to keep oxygen saturations more than 92% (6) Bacteremia ICD Code: R78.81 - Bacteremia Plan: Recently admitted and diagnosed with MSSA bacteremia. Seemed by infectious disease. Patient discharged home on IV Cefazolin which will be continued. (7) HTN (hypertension) ICD Code: I10 - Essential (primary) hypertension Plan: BP seems to be stable. Continue home antihypertensive medications. The patient currently on enalapril 10 mg by mouth twice a day, metoprolol 50 minutes by mouth daily. (8) H/O deep venous thrombosis ICD Code: Z86.718 - Personal history of other venous thrombosis and embolism Plan: On Coumadin - Continued by admitting team. No evidence of gross bleeding. Assessment and Plan GI prophylaxis: We'll add PPI as patient is on IV steroids. DVT prophylaxis: SCDs, patient on Coumadin fo h/o previous DVT. Problem Qualifiers (1) Iron deficiency anemia: Qualified Codes: D50.9 - Iron deficiency anemia, unspecified (2) CHF (congestive heart failure): Qualified Codes: I50.32 - Chronic diastolic (congestive) heart failure (3) HTN (hypertension): Qualified Codes: I10 - Essential (primary) hypertension North Pardo MD Jan 01, 2017 19:19
[2017-01-01] MEDS ORDERED: RESP: ALBUTEROL 2.5 MG/IPRATROPIUM 0.5 MG NEB (PRN) NEB (19:30)
[2017-01-01] MEDS: RESP: ALBUTEROL 2.5 MG/IPRATROPIUM 0.5 MG NEB (SCH) NEB (20:06)
[2017-01-02] VITALS (12 sets, daily range): BP systolic 120–160; BP diastolic 57–82; PULSE 64–78; RESP 16–21; TEMP 97.4–97.8; O2SAT 90–100
[2017-01-02] MEDS: methylPREDNISolone SOD SUCC 125 MG/2 ML VIAL IV SCH ×4 (00:55→21:39)
[2017-01-02] MEDS: ceFAZolin 2 GM PREMIX 50 ML IV SCH ×3 (02:08→18:09)
[2017-01-02] MEDS: SODIUM CHLORIDE 0.9% FLUSH 10 ML FLUSH IV FLUSH PRN ×3 (06:23→18:08)
[2017-01-02] MEDS: RESP: ALBUTEROL 2.5 MG/IPRATROPIUM 0.5 MG NEB (SCH) NEB ×3 (07:27→19:53)
--- NOTE | 2017-01-02 08:26 | PD.CONS ---
HPI History of Present Illness This is a 71 year old female patient with a history of coronary artery disease, ischemic cardiomyopathy (S/P AICD 5 years ago), and congestive heart failure. She has a history of Vtach and required previous defib sock, ablation in 2014. She has a history of who was recently hospitalized with severe sepsis, left breast cellulitis, AICD generator/lead infection. During that hospitalization, she underwent removal of AICD and 2 leads on 12/18/16. She was treated with antibiotics as inpatient for MSSA bacteremia. She was discharged with a PICC line and Ancef 2 gram IV q8h until 01/29/17 and a life vest. She reports a few days after discharge, she was called at home and instructed to come in for labs. She was then found to be anemic and was admitted for further evaluation and treatment. She states that she has been told that she was anemic in the past. She has not seen any obvious blood loss. She denies any nausea, vomiting , reflux, heartburn, abdominal pain, weight, bowel changes, constipation, diarrhea, melena, hematochezia. She last had a colonoscopy 4-5 years ago at [place]. She does not recall the findings. I looked in our records, but she was not seen by our service. PFSH Past Medical History HTN DM Ischemic cardiomyopathy CHF Atrial fibrillation, on coumadin COPD on home O2 Vtach Anemia Recent breast cellulitis, sepsis, AICD generator/lead infection Past Surgical History Breast surgery PPM placement Right breast lumpectomy Appendectomy Cholecystectomy Hysterectomy AICD placement Recent AICD and lead removal Colonoscopy Coded Allergies: penicillin G (Unverified Allergy, Severe, rash, 12/31/16) benazepril (Unverified Allergy, Mild, 12/31/16) HUMBLE inhibitor angioedema, swelling of the face lips and anterior tongue captopril (Unverified Allergy, Mild, 12/31/16) HUMBLE inhibitor angioedema, swelling of the face lips and anterior tongue enalaprilat (Unverified Allergy, Mild, 12/31/16) HUMBLE inhibitor angioedema, swelling of the face lips and anterior tongue fosinopril (Unverified Allergy, Mild, 12/31/16) HUMBLE inhibitor angioedema, swelling of the face lips and anterior tongue lisinopril (Unverified Allergy, Mild, 12/31/16) HUMBLE inhibitor angioedema, swelling of the face lips and anterior tongue quinapril (Unverified Allergy, Mild, 12/31/16) HUMBLE inhibitor angioedema, swelling of the face lips and anterior tongue Uncoded Allergies: NON COMPATIBLE PACEMAKER (Adverse Reaction, Severe, MRI PRECAUTION / PACEMAKER, 11/03/14) MRI PRECAUTION. PACEMAKER Medications Allergies Coded Allergies Type Severity Reaction Last Updated Verified penicillin G Allergy Severe rash 12/31/16 No benazepril Allergy Mild 12/31/16 No captopril Allergy Mild 12/31/16 No enalaprilat Allergy Mild 12/31/16 No fosinopril Allergy Mild 12/31/16 No lisinopril Allergy Mild 12/31/16 No quinapril Allergy Mild 12/31/16 No Uncoded Allergies Type Severity Reaction Last Updated Verified NON COMPATIBLE PACEMAKER Adverse Reaction Severe MRI PRECAUTION /PACEMAKER 11/03 Active Scripts Medications Dose Route/Sig Max Daily Dose Days Date Category Dose Instructions Ferrous Sulfate 325 Mg (65 Mg Iron) Tablet 325 Mg PO BID 12/27/16 Rx Bumetanide 2 Mg Tab 2 Mg PO DAILY 12/27/16 Rx Coumadin (Warfarin) 3 Mg Tab 3 Mg PO DAILY@1600 12/27/16 Rx Magnesium 200 Mg Tab 400 Mg PO DAILY 12/27/16 Rx K-Tab (Potassium Chloride) 10 Meq Tab 10 Meq PO BID 12/27/16 Rx Epinephrine Inj 1 Mg/Ml (1 Ml) Inj 0.3 Mg IV PUSH ONCE PRN 12/26/16 Rx Cefazolin Inj (Cefazolin Sodium/Dextrose) 2 Gm/50 Ml Bagp 2 Gm IV Q8H 35 12/26/16 Rx Oxygen (O2) (Miscellaneous Medication) Inha Liter JENNIFER.CANULA CONTINUOUS 12/26/16 Rx Oxygen Concentrator Portable Gaseous 2 L/min via Nasal Canula Continuous For 99 months Defibrillator Jacket (Device) 1 Ea Device Ea EXTERNAL ONCE 12/25/16 Rx Energy = 150 Joules; VT Threshold = 150 BPM; VF Threshold = 200 BPM Use up to 90 days only [place] (Hydrocodone-Acetaminophen) 5-325 mg Tab 1 Tab PO BID PRN 12/10/16 Reported Enalapril (Enalapril Maleate) 10 Mg Tab 10 Mg PO BID 12/10/16 Reported Metoprolol Succinate ER 24 HR (Metoprolol Succinate) 50 Mg Tab 50 Mg PO DAILY 04/07/16 Reported Amlodipine (Amlodipine Besylate) 5 Mg Tab 5 Mg PO DAILY 04/07/16 Reported Amiodarone (Amiodarone HCl) 200 Mg Tab 200 Mg PO DAILY 04/07/16 Reported Family History Denies any family history of esophageal, gastric, or colorectal cancer Social History Quit smoking one month ago. Smoked for from [id number] Denies etoh abuse or drug abuse Review of Systems Constitutional: COMPLAINS OF: Fatigue, DENIES: Fever, Weight loss, Chills, Change in appetite Respiratory: COMPLAINS OF: Cough, Shortness of breath Cardiovascular: DENIES: Chest pain, Palpitations Gastrointestinal: DENIES: Abdominal pain, Black stools, Bloody stools, Constipation, Diarrhea, Nausea, Vomiting, Swelling of Abdomen, Heartburn, Hematemesis Musculoskeletal: COMPLAINS OF: Joint pain Neurologic: DENIES: Headache Psychiatric: DENIES: Confusion GI Exam Vitals I&O Vital Signs Date Time Temp Pulse Resp B/P (MAP) Pulse Ox O2 Delivery O2 Flow Rate FiO2 01/02/17 07:29 98 Nasal Cannula 3.00 01/02/17 04:10 68 01/02/17 04:04 97.4 70 19 132/63 (86) 97 01/02/17 02:25 97.8 64 16 123/61 (81) 99 01/01/17 23:59 70 01/01/17 22:07 67 14 131/71 (91) 98 01/01/17 20:35 68 01/01/17 20:07 94 Nasal Cannula 4.00 01/01/17 16:00 97.1 66 21 138/65 (89) 100 01/01/17 11:52 97.5 64 18 117/57 (77) 94 I/O 01/01/17 01/01/17 01/01/17 01/02/17 01/02/17 01/02/17 07:00 15:00 23:00 07:00 15:00 23:00 Intake Total 650 ml 50 ml Balance 650 ml 50 ml Intake IV Total 50 ml Packed Cells 650 ml # Voids 1 6 # Bowel Movements 3 Imaging Last Impressions Chest X-Ray 12/31/161958 Signed Impressions: Service Date/Time: Saturday, December 31, 2016 20:07 - CONCLUSION: 1. Cardiomegaly 2. Left lung increased density related to some degree of effusion and consolidation/atelectasis. Gregory Perry MD Laboratory Test 01/01/17 17:25 Total Creatine Kinase 85 U/L Troponin I LESS THAN 0.02 NG/ML Date/Time Source Procedure Growth Status 01/02/17 00:40 Stool Stool Stool Occult Blood (VIN) - Final HEMOCCULT NEGATIVE Complete Physical Examination HEENT: Normocephalic; atraumatic; no jaundice. Throat is clear. CHEST: Expiratory wheezing. Left breast edematous, tender, incision line well approximated CARDIAC: Irregular ABDOMEN: Soft, nondistended, nontender; no hepatosplenomegaly; bowel sounds are present in all four quadrants. EXTREMITIES: No clubbing, cyanosis, or edema. SKIN: Normal; no rash; no jaundice. MEAT PACKAGER: No focal deficits; alert and oriented times three. Assessment and Plan Plan ASSESSMENT: - Anemia. She came to have labs drawn and was found to be anemic. She denies any obvious blood loss or any GI symptoms. Of note, she was recently hospitalized and her H/H on discharge 12/27 was 7.3/ 23.5. HH on admission was 7.2/22.9. S/P 2 units of PRBC. HH 9.0/28.1. Her hemoccult stool was negative. Likely she has some anemia of chronic disease. She has a life vest and therefore we would hold on any endoscopic procedures unless she is actively bleeding. She is on coumadin for afib. - Ischemic Cardiomyopathy. Has hx of AICD, but was recently hospitalized for sepsis, left breast cellulitis, AICD generator/lead infection and had her AICD, Lead x 2 removed on 12/18/16. She is currently with a life vest. - Afib, on coumadin. - Recent AICD generator, lead, left breast cellulitis. S/P removal of AICD and leads x 2 12/18. Cx MSSA. She was discharged home with PICC and is scheduled to get Ancef 2 gram IV q8h until 01/29/17. - DM, HTN, COPD per attending. PLAN: - ELAINA - Monitor HH - Transfuse as necessary - ? Imaging, will wait until Dr. Deng sees patient - Pt has ischemic cardiomyopathy, hx of vtach. S/P recent removal of AICD/ Leads secondary to infection, now with Life Vest on. Will monitor HH and transfuse as necessary and hold on any endoscopic procedures unless she is actively bleeding. - Further recommendations to follow after patient is seen and examined by Merline Pulido Jan 02, 2017 08:26
[2017-01-02] MEDS: amLODIPine BESYLATE 5 MG TAB PO SCH (10:06)
[2017-01-02] MEDS: BUMETANIDE 1 MG TAB PO SCH (10:06)
[2017-01-02] MEDS: AMIODARONE 200 MG TAB PO SCH (10:06)
[2017-01-02] MEDS: POTASSIUM CHLORIDE 10 MEQ CONTROLLED RELEASE TAB PO SCH ×2 (10:06→21:36)
[2017-01-02] MEDS: LEVOFLOXACIN 750 MG TAB PO SCH (10:06)
[2017-01-02] MEDS: FERROUS SULFATE 325 MG (65 MG ELEMENTAL IRON) TAB PO SCH ×2 (10:06→21:36)
[2017-01-02] MEDS: METOPROLOL SUCCINATE 50 MG EXTENDED RELEASE TAB PO SCH (10:06)
[2017-01-02] MEDS: MAGNESIUM OXIDE 400 MG TAB PO SCH (10:06)
[2017-01-02] MEDS: ENALAPRIL MALEATE 10 MG TAB PO SCH ×2 (10:06→21:00)
[2017-01-02] MEDS: SODIUM CHLORIDE 0.9% FLUSH 10 ML FLUSH IV FLUSH SCH ×2 (10:07→21:36)
--- NOTE | 2017-01-02 11:47 | HHI.PR ---
Subjective Remarks Patient states work of breathing is much improved denies chest pain denies fevers and chills cough better Objective Vitals Vital Signs Date Time Temp Pulse Resp B/P (MAP) Pulse Ox O2 Delivery O2 Flow Rate FiO2 01/02/17 08:58 97.6 77 18 160/82 (108) 98 01/02/17 07:29 98 Nasal Cannula 3.00 01/02/17 04:10 68 01/02/17 04:04 97.4 70 19 132/63 (86) 97 01/02/17 02:25 97.8 64 16 123/61 (81) 99 01/01/17 23:59 70 01/01/17 22:07 67 14 131/71 (91) 98 01/01/17 20:35 68 01/01/17 20:07 94 Nasal Cannula 4.00 01/01/17 16:00 97.1 66 21 138/65 (89) 100 01/01/17 11:52 97.5 64 18 117/57 (77) 94 I/O 01/01/17 01/01/17 01/01/17 01/02/17 01/02/17 01/02/17 07:00 15:00 23:00 07:00 15:00 23:00 Intake Total 650 ml 50 ml 50 ml Balance 650 ml 50 ml 50 ml Intake IV Total 50 ml 50 ml Packed Cells 650 ml # Voids 1 6 # Bowel Movements 3 Result Diagram: 01/01/17 0639 01/01/17 0639 Imaging Last Impressions Chest X-Ray 12/31/161958 Signed Impressions: Service Date/Time: Saturday, December 31, 2016 20:07 - CONCLUSION: 1. Cardiomegaly 2. Left lung increased density related to some degree of effusion and consolidation/atelectasis. Gregory Perry MD Objective Remarks AAOx3 mild to moderate distress due to sob patient is using accessory muscles of respiration Improved air movement on lung exam bilaterally there is +1 pitting edemal in lower extremities no cyanosis Medications and IVs Current Medications Medications (Trade) Dose Ordered Sig/Juan Route Start Time Stop Time Status Last Admin (NS Flush) 2 ml UNSCH PRN IV FLUSH 12/31/16 21:30 01/02/17 06:23 (NS Flush) 2 ml BID IV FLUSH 01/01/17 09:00 10/5/17 10:07 (Narcan Inj) 0.4 mg UNSCH PRN IV PUSH 12/31/16 21:30 (Cordarone) 200 mg DAILY PO 01/01/17 09:00 01/02/17 10:06 (Norvasc) 5 mg DAILY PO 01/01/17 09:00 01/02/17 10:06 (Vasotec) 10 mg BID PO 01/01/17 09:00 01/02/17 10:06 (Ferrous Sulfate) 325 mg BID PO 01/01/17 09:00 01/02/17 10:06 ([place] 5-325 Mg) 1 tab BID PRN PO 01/01/17 01:15 (Toprol Xl) 50 mg DAILY PO 01/01/17 09:00 01/02/17 10:06 (KCl) 10 meq BID PO 01/01/17 09:00 01/02/17 10:06 (Coumadin) 3 mg DAILY@1600 PO 01/01/17 16:00 01/01/17 16:33 (Mag-Ox) 400 mg DAILY PO 01/01/17 09:00 01/02/17 10:06 Cefazolin Sodium/ Dextrose 50 ml @ 100 mls/hr Q8H IV 01/01/17 02:00 01/02/17 10:07 (Levaquin) 750 mg DAILY PO 01/01/17 09:00 01/02/17 10:06 (SoluMEDROL INJ) 60 mg Q6HR IV 01/02/17 00:00 01/02/17 06:22 (Duoneb Neb) 1 ampule Q6HR WHILE AWAKE NEB NEB 01/01/17 20:00 01/02/17 07:27 (Duoneb Neb) 1 ampule Q2HR NEB PRN NEB 01/01/17 19:30 (Bumex Inj) 1 mg BID@09,18 IV PUSH 01/02/17 18:00 A/P Problem List: (1) Symptomatic anemia ICD Code: D64.9 - Anemia, unspecified Plan: The patient presented with shortness of breath and dyspnea. The patient status post transfusion of 1 unit of packed blood cells. No evidence of acute blood loss Check stool Hemoccult (2) Iron deficiency anemia ICD Code: D50.9 - Iron deficiency anemia, unspecified Plan: Upon review of records on recent admission the patient had iron studies which were consistent with iron deficiency anemia. At the time the patient was discharged to follow-up with gastroenterology. Appreciate GI recommendations, recommend monitoring H&H and no EGD for/ colonoscopy unless there is active GI bleed. Hemoccult negative. (3) CHF (congestive heart failure) ICD Code: I50.9 - CHF (congestive heart failure) Status: Chronic Plan: The patient has an elevated BNP, however given the patient's elevated creatinine and possible chronic kidney disease, this could be falsely elevated. Upon review of the previous records the patient has had a chronically elevated BNP with the lowest number being in the low 1600s. Patient's recent echocardiogram obtained on 12/12/16 shows a normal left ventricular systolic function EF of 60%. I believe the patient's shortness of breath is secondary to a COPD exacerbation more than an acute congestive heart failure. (4) CKD (chronic kidney disease), stage III ICD Code: N18.3 - Chronic kidney disease, stage 3 (moderate) Plan: Upon review of records the patient has had consistently elevated creatinine for this year. The most recent creatinine that I can find dates back to December 2014 and it was 0.79. Possibly some degree of sick kidney stage III. Continue to monitor BUN/creatinine, strict I's and O's and avoid nephrotoxins (5) COPD with acute exacerbation ICD Code: J44.1 - Chronic obstructive pulmonary disease with (acute) exacerbation Plan: Patient with very diminished air entry and diffuse bilateral expiratory wheezing on lung exam. I will start the patient on IV steroids, I will give IV Solu-Medrol 125 mg IV 1 and continue 60 mg IV every 6 hours. Continue IV Levaquin that was started for possible pneumonia as described on chest x-ray above. Continue supplemental oxygen to keep oxygen saturations more than 92% / Patient is moving more air. Will decrease Solu-Medrol to 40 mg IV every 8 hours. Continue to monitor vital signs, and continue to provide supplemental oxygen to keep an oxygen saturation more than 92%. (6) Bacteremia ICD Code: R78.81 - Bacteremia Plan: Recently admitted and diagnosed with MSSA bacteremia. Seemed by infectious disease. Patient discharged home on IV Cefazolin which will be continued. (7) HTN (hypertension) ICD Code: I10 - Essential (primary) hypertension Plan: BP seems to be stable. Continue home antihypertensive medications. The patient currently on enalapril 10 mg by mouth twice a day, metoprolol 50 minutes by mouth daily. 01/01 the patient has one reading with a systolic blood pressure 160s. I will add on a when necessary. (8) H/O deep venous thrombosis ICD Code: Z86.718 - Personal history of other venous thrombosis and embolism Plan: On Coumadin - Continued by admitting team. No evidence of gross bleeding. INR subtherapeutic. I will consult pharmacy to help manage dosing and PT/INR monitoring. Assessment and Plan GI prophylaxis: We'll add PPI as patient is on IV steroids. DVT prophylaxis: SCDs, patient on Coumadin fo h/o previous DVT. Problem Qualifiers (1) Iron deficiency anemia: Qualified Codes: D50.9 - Iron deficiency anemia, unspecified (2) CHF (congestive heart failure): Qualified Codes: I50.32 - Chronic diastolic (congestive) heart failure (3) HTN (hypertension): Qualified Codes: I10 - Essential (primary) hypertension [place] Pardo MD Jan 02, 2017 11:47
--- NOTE | 2017-01-02 15:00 | RADRPT ---
EXAM DATE/TIME: 01/02/2017 14:24 [facility] COMPARISON: CT THORAX W CONTRAST, November 28, 2016, 11:41. CHEST SINGLE AP, December 31, 2016, 20:07. INDICATIONS : Pleural effusion. Chest pain and shortness of breath. Abnormal chest x-ray with left lung increased d ensity with effusion and consolidation. RADIATION DOSE: 9.45 CTDIvol (mGy) MEDICAL HISTORY : Cardiovascular disease. Chronic obstructive pulmonary disease. Hypertension. Diabetes SURGICAL HISTORY : Hysterectomy. ENCOUNTER: Initial ACUITY: 1 day PAIN SCALE: 10/10 LOCATION: chest TECHNIQUE: Volumetric scanning of the chest was performed. Using automated exposure control and adjustment of t he mA and/or kV according to patient size, radiation dose was kept as low as reasonably achievable to obtain optimal diagnostic quality images. DICOM format image data is available electronically for r eview and comparison. Follow-up recommendations for detected pulmonary nodules are based at a minimum on nodule size and pa tient risk factors according to Fleischner Society Guidelines. FINDINGS: There is streak artifact. LUNGS: There is no pneumothorax. There is consolidation in the left lower lobe with air bronchograms. No co ncerning pulmonary nodule is visualized. PLEURAE: There are bilateral pleural effusions right greater than left. MEDIASTINUM: The heart size is markedly enlarged. There are coronary artery calcifications. There is no definite a denopathy however visualization is limited by the lack of intravenous contrast and anasarca. A transv enous pacer is present. AXILLAE: Within normal limits. No lymphadenopathy. MUSCULOSKELETAL: Within normal limits for patient age. MISCELLANEOUS: The visualized upper abdominal organs demonstrate no acute abnormality. There is evidence of diffuse anasarca. CONCLUSION: 1. Bilateral pleural effusions right greater than left. 2. Mild consolidation in the left lower lobe. 3. Marked cardiomegaly. 4. Anasarca. Sergio Haro MD on January 02, 2017 at 14:47 Board Certified Radiologist. This report was verified electronically.
[2017-01-02 15:15] LABS: AUTOMATED NEUTROPHIL # 4.7 TH/MM3 (1.8-7.7); BASOPHIL % 0.2 % (0.0-2.0); HEMATOCRIT 31.2 % (35.0-46.0); LYMPH % 8.9 % (9.0-44.0); LYMPHOCYTE # 0.5 TH/MM3 (1.0-4.8); MEAN CELL VOLUME 77.7 FL (80.0-100.0); MEAN CORPUSCULAR HEMOGLOBIN 25.3 PG (27.0-34.0); MEAN CORPUSCULAR HGB CONC 32.6 % (32.0-36.0); MONO % 5.5 % (0.0-8.0); NEUT % 85.4 % (16.0-70.0); PLATELET COUNT 240 TH/MM3 (150-450); RED BLOOD COUNT 4.02 MIL/MM3 (4.00-5.30); RED CELL DISTRIBUTION WIDTH 28.2 % (11.6-17.2); WHITE BLOOD COUNT 5.5 TH/MM3 (4.0-11.0)
[2017-01-02 15:21] LABS: HEMO FLAGS AUTO DIFF
[2017-01-02 15:39] LABS: ALT (GPT) 7 U/L (10-53); ANION GAP 7 MEQ/L (5-15); AST (GOT) 31 U/L (15-37); BICARBONATE 29.8 MEQ/L (21.0-32.0); BLOOD UREA NITROGEN 25 MG/DL (7-18); CHLORIDE 102 MEQ/L (98-107); GLOMERULAR FILTRATION RATE 50 ML/MIN (>89); MAGNESIUM 1.4 MG/DL (1.5-2.5); POTASSIUM 4.3 MEQ/L (3.5-5.1); SODIUM (NA) 139 MEQ/L (136-145)
[2017-01-02 15:42] LABS: ALKALINE PHOSPHATASE 119 U/L (45-117); TOTAL BILIRUBIN ADULT 1.3 MG/DL (0.2-1.0)
[2017-01-02] MEDS: WARFARIN SOD 3 MG TAB PO SCH (16:37)
[2017-01-02 16:45] LABS: PLATELET ESTIMATE SMEAR NORMAL (NORMAL); PLATELET MORPHOLOGY NORMAL (NORMAL); SCAN/DIFF AUTO DIFF CONFIRMED
[2017-01-02 16:46] LABS: OVALOCYTES 1+ (NORMAL); TARGET CELLS 1+ (NORMAL)
[2017-01-02] MEDS: BUMETANIDE INJ 1 MG/4 ML VIAL IV PUSH SCH (18:09)
[2017-01-03] VITALS (12 sets, daily range): BP systolic 127–174; BP diastolic 65–81; PULSE 69–78; RESP 18–22; TEMP 97.3–98.1; O2SAT 92–100
[2017-01-03] MEDS: ceFAZolin 2 GM PREMIX 50 ML IV SCH ×3 (02:07→17:37)
[2017-01-03] MEDS: methylPREDNISolone SOD SUCC 125 MG/2 ML VIAL IV SCH (05:18)
[2017-01-03] MEDS: RESP: ALBUTEROL 2.5 MG/IPRATROPIUM 0.5 MG NEB (SCH) NEB ×3 (07:16→19:25)
[2017-01-03] MEDS: ENALAPRIL MALEATE 10 MG TAB PO SCH (07:58)
[2017-01-03] MEDS ORDERED: DIATRIZOATE MEGLUM/DIATRIZOATE SOD 9 ML CUP PO ONE (08:30)
[2017-01-03] MEDS: POTASSIUM CHLORIDE 10 MEQ CONTROLLED RELEASE TAB PO SCH ×2 (09:48→20:38)
[2017-01-03] MEDS: AMIODARONE 200 MG TAB PO SCH (09:48)
[2017-01-03] MEDS: MAGNESIUM OXIDE 400 MG TAB PO SCH (09:48)
[2017-01-03] MEDS: METOPROLOL SUCCINATE 50 MG EXTENDED RELEASE TAB PO SCH (09:48)
[2017-01-03] MEDS: amLODIPine BESYLATE 5 MG TAB PO SCH (09:48)
[2017-01-03] MEDS: FERROUS SULFATE 325 MG (65 MG ELEMENTAL IRON) TAB PO SCH ×2 (09:48→20:38)
[2017-01-03] MEDS: LEVOFLOXACIN 750 MG TAB PO SCH (09:48)
[2017-01-03] MEDS: SODIUM CHLORIDE 0.9% FLUSH 10 ML FLUSH IV FLUSH SCH ×2 (09:49→20:38)
[2017-01-03] MEDS: BUMETANIDE INJ 1 MG/4 ML VIAL IV PUSH SCH ×2 (09:49→17:38)
[2017-01-03] MEDS ORDERED: INFLUENZA VIRUS VACCINE (QUADRIVALENT) 0.5 ML SYR IM ONE (10:00)
--- NOTE | 2017-01-03 13:19 | RADRPT ---
EXAM DATE/TIME: 01/03/2017 11:59 [place] COMPARISON: CT ABDOMEN & PELVIS W/O CONTRAST, April 07, 2016, 18:06. INDICATIONS : Generalized abdominal pain. ORAL CONTRAST: Prescribed oral contrast ingested. RADIATION DOSE: 16.03 CTDIvol (mGy) MEDICAL HISTORY : Cardiovascular disease. Hypertension. Chronic obstructive pulmonary disease.Diabetes. SURGICAL HISTORY : Appendectomy. Hysterectomy. ENCOUNTER: Initial ACUITY: 3 days PAIN SCALE: 4/10 LOCATION: Bilateral lower quadrant TECHNIQUE: Volumetric scanning of the abdomen and pelvis was performed. Using automated exposure control and ad justment of the mA and/or kV according to patient size, radiation dose was kept as low as reasonably achievable to obtain optimal diagnostic quality images. DICOM format image data is available electro nically for review and comparison. FINDINGS: LOWER LUNGS: Small bilateral pleural effusions and associated airspace disease at the lung bases. Redemonstration of diffuse cardiomegaly. LIVER: Redemonstration of hepatomegaly. Liver demonstrates uniform density without gross focal mass or intra hepatic ductal dilatation. Gallbladder is grossly unremarkable. SPLEEN: Normal size without lesion. PANCREAS: Within normal limits. KIDNEYS: Kidneys are symmetrical in size without evidence for radiopaque renal calculi or hydronephrosis. ADRENAL GLANDS: Within normal limits. VASCULAR: Moderate aortic calcified plaque and heavily calcified common iliac arteries bilaterally. Bilateral e xternal iliac artery stents in place. No aortic aneurysm. BOWEL/MESENTERY: Small amount of ascites and mesenteric edema. Bowel is grossly unremarkable without evidence for obst ruction. No free air or pneumatosis. ABDOMINAL WALL: Progression of prominent diffuse anasarca. RETROPERITONEUM: There is no lymphadenopathy. BLADDER: Mildly distended with improved diffuse bladder wall thickening. REPRODUCTIVE: Uterus is surgically absent. INGUINAL: There is no lymphadenopathy or hernia. MUSCULOSKELETAL: Degenerative changes of the lower lumbar spine without significant focal lytic or blastic bony lesion s. CONCLUSION: 1. Marked cardiomegaly with progressive diffuse anasarca, small bilateral pleural effusions and small amount of ascites. Findings are likely cardiogenic. 2. Mild hepatomegaly which may reflect congestive hepatopathy. 3. No radiopaque renal calculi or obstructive uropathy. Improved diffuse bladder wall thickening in c omparison to prior exam. 4. Remainder of the exam is unchanged. Tommie Polk MD on January 03, 2017 at 13:11 Board Certified Radiologist. This report was verified electronically.
[2017-01-03] MEDS: WARFARIN SOD 3 MG TAB PO SCH (15:27)
--- NOTE | 2017-01-03 16:48 | HHI.GIFU ---
Subjective Remarks Pt sitting up in bed. No complaints. No bleeding. (Dia Suarez) Objective Vitals I&O Vital Signs Date Time Temp Pulse Resp B/P (MAP) Pulse Ox O2 Delivery O2 Flow Rate FiO2 01/03/17 15:35 98.1 78 20 174/80 (111) 99 01/03/17 12:14 97.5 72 20 162/75 (104) 96 01/03/17 07:45 97.6 73 18 157/81 (106) 100 01/03/17 07:16 93 Nasal Cannula 1.00 01/03/17 04:16 97.6 70 22 127/71 (89) 98 01/03/17 00:14 97.3 76 18 152/77 (102) 94 01/03/17 00:00 73 01/02/17 21:00 97.5 78 20 120/57 (78) 01/02/17 20:30 100 01/02/17 19:00 73 01/02/17 17:20 70 I/O 01/02/17 01/02/17 01/02/17 01/03/17 01/03/17 01/03/17 07:00 15:00 23:00 07:00 15:00 23:00 Intake Total 50 ml 50 ml 850 ml 50 ml 240 ml Output Total 400 ml 300 ml Balance 50 ml 50 ml 850 ml -350 ml -60 ml Intake Oral 750 ml 240 ml IV Total 50 ml 50 ml 100 ml 50 ml Output Urine Total 400 ml 300 ml # Voids 6 6 # Bowel Movements 3 1 Laboratory Date/Time Source Procedure Growth Status 01/02/17 00:40 Stool Stool Stool Occult Blood (VIN) - Final HEMOCCULT NEGATIVE Complete Imaging Last Impressions Chest CT 01/02/17 0000 Signed Impressions: Service Date/Time: December 14:24 - CONCLUSION: 1. Bilateral pleural effusions right greater than left. 2. Mild consolidation in the left lower lobe. 3. Marked cardiomegaly. 4. Anasarca. Sergio Haro MD Abdomen/Pelvis CT 01/02/17 0000 Signed Impressions: Service Date/Time: Tuesday, January 03, 2017 11:59 - CONCLUSION: 1. Marked cardiomegaly with progressive diffuse anasarca, small bilateral pleural effusions and small amount of ascites. Findings are likely cardiogenic. 2. Mild hepatomegaly which may reflect congestive hepatopathy. 3. No radiopaque renal calculi or obstructive uropathy. Improved diffuse bladder wall thickening in comparison to prior exam. 4. Remainder of the exam is unchanged. Tommie Polk MD Chest X-Ray 12/31/161958 Signed Impressions: Service Date/Time: Saturday, December 31, 2016 20:07 - CONCLUSION: 1. Cardiomegaly 2. Left lung increased density related to some degree of effusion and consolidation/atelectasis. Gregory Perry MD Physical Exam HEENT: PERRL; normocephalic; atraumatic; no jaundice. CHEST: CTA apices, further auscultation deferred d/t lifevest CARDIAC: Regular rate ABDOMEN: Soft, nondistended, nontender; bowel sounds are present in all four quadrants. EXTREMITIES: No clubbing, cyanosis, mild BLE edema SKIN: Normal; no rash; no jaundice. RAIL WALKER: No focal deficits; alert and oriented times three. (Dia Suarez [facility]) Assessment and Plan Plan ASSESSMENT: - Anemia. She came to have labs drawn and was found to be anemic. She denies any obvious blood loss or any GI symptoms. Of note, she was recently hospitalized and her H/H on discharge 12/27 was 7.3/ 23.5. HH on admission was 7.2/22.9. S/P 2 units of PRBC. HH improved. Her hemoccult stool was negative. Likely she has some anemia of chronic disease. She has a life vest and therefore we would hold on any endoscopic procedures unless she is actively bleeding. She is on coumadin for afib. - Ischemic Cardiomyopathy. Has hx of AICD, but was recently hospitalized for sepsis, left breast cellulitis, AICD generator/lead infection and had her AICD, Lead x 2 removed on 12/18/16. She is currently with a life vest. CTabd sugg congestive hepatopathy, anasarca, small ascites cardiomegaly. CT chest noted - Afib, on coumadin. - Recent AICD generator, lead, left breast cellulitis. S/P removal of AICD and leads x 2 12/18. Cx MSSA. She was discharged home with PICC and is scheduled to get Ancef 2 gram IV q8h until 01/29/17. - DM, HTN, COPD per attending. PLAN: - ELAINA - Monitor HH - Transfuse as necessary - hold on endoscopy unless active bleeding - notify GI if active bleeding - Further recommendations to follow after patient is seen and examined by Dr. Deng (Dia Suarez) Dia Suarez Jan 03, 2017 16:48 Jerri Deng MD Jan 03, 2017 19:30
[2017-01-03] MEDS: SODIUM CHLORIDE 0.9% FLUSH 10 ML FLUSH IV FLUSH PRN (17:38)
[2017-01-03] MEDS: predniSONE 20 MG TAB PO SCH (20:38)
[2017-01-03] MEDS ORDERED: ENALAPRIL MALEATE 10 MG TAB PO SCH (21:00)
[2017-01-04] VITALS (7 sets, daily range): BP systolic 119–160; BP diastolic 58–77; PULSE 65–71; RESP 17–22; TEMP 96–98.1; O2SAT 90–99
--- NOTE | 2017-01-04 02:03 | HHI.PR ---
Subjective Remarks late entry - patient seen on 01/03/17 at 12:20 am Patient states sob is much improved BP noted to be very elevated with sbo into the 170's Objective Vitals Vital Signs Date Time Temp Pulse Resp B/P (MAP) Pulse Ox O2 Delivery O2 Flow Rate FiO2 01/04/17 00:28 98.1 65 19 129/59 (82) 96 01/03/17 19:59 97.4 70 18 141/65 (90) 98 01/03/17 19:45 98 Nasal Cannula 3.00 01/03/17 15:35 98.1 78 20 174/80 (111) 99 01/03/17 15:15 69 01/03/17 13:15 76 01/03/17 12:14 97.5 72 20 162/75 (104) 96 01/03/17 08:15 71 01/03/17 07:45 97.6 73 18 157/81 (106) 100 01/03/17 07:16 93 Nasal Cannula 1.00 01/03/17 04:16 97.6 70 22 127/71 (89) 98 I/O 01/03/17 01/03/17 01/03/17 01/04/17 01/04/17 01/04/17 06:59 14:59 22:59 06:59 14:59 22:59 Intake Total 850 ml 50 ml 890 ml Output Total 400 ml 850 ml Balance 850 ml -350 ml 40 ml Intake Oral 750 ml 840 ml IV Total 100 ml 50 ml 50 ml Output Urine Total 400 ml 850 ml # Voids 6 1 # Bowel Movements 2 Result Diagram: 01/02/17 1350 01/02/17 1350 Objective Remarks AAOx3 Not in respiratory distress patient is using accessory muscles of respiration Clear to auscultation BL with improved air movement there is +1 pitting edemal in lower extremities no cyanosis A/P Problem List: (1) Symptomatic anemia ICD Code: D64.9 - Anemia, unspecified Plan: The patient presented with shortness of breath and dyspnea. The patient status post transfusion of 1 unit of packed blood cells. No evidence of acute blood loss Stool Hemoccult negative. 01/03 Appreciate GI consultation. Conservative management for now. Fu hemoglobin and transfuse as needed for symptomatic anemia or hemoglobin less than 8. (2) Iron deficiency anemia ICD Code: D50.9 - Iron deficiency anemia, unspecified Plan: Upon review of records on recent admission the patient had iron studies which were consistent with iron deficiency anemia. At the time the patient was discharged to follow-up with gastroenterology. Appreciate GI recommendations, recommend monitoring H&H and no EGD for/ colonoscopy unless there is active GI bleed. Hemoccult negative. (3) CHF (congestive heart failure) ICD Code: I50.9 - CHF (congestive heart failure) Status: Chronic Plan: The patient has an elevated BNP, however given the patient's elevated creatinine and possible chronic kidney disease, this could be falsely elevated. Upon review of the previous records the patient has had a chronically elevated BNP with the lowest number being in the low 1600s. Patient's recent echocardiogram obtained on 12/12/16 shows a normal left ventricular systolic function EF of 60%. I believe the patient's shortness of breath is secondary to a COPD exacerbation more than an acute congestive heart failure. (4) CKD (chronic kidney disease), stage III ICD Code: N18.3 - Chronic kidney disease, stage 3 (moderate) Plan: Upon review of records the patient has had consistently elevated creatinine for this year. The most recent creatinine that I can find dates back to December 2014 and it was 0.79. Possibly some degree of sick kidney stage III. Continue to monitor BUN/creatinine, strict I's and O's and avoid nephrotoxins (5) COPD with acute exacerbation ICD Code: J44.1 - Chronic obstructive pulmonary disease with (acute) exacerbation Plan: Patient with very diminished air entry and diffuse bilateral expiratory wheezing on lung exam. I will start the patient on IV steroids, I will give IV Solu-Medrol 125 mg IV 1 and continue 60 mg IV every 6 hours. Continue IV Levaquin that was started for possible pneumonia as described on chest x-ray above. Continue supplemental oxygen to keep oxygen saturations more than 92% 10/6 DC Solumedrol and start oral prednisone. (6) Bacteremia ICD Code: R78.81 - Bacteremia Plan: Recently admitted and diagnosed with MSSA bacteremia. Seemed by infectious disease. Patient discharged home on IV Cefazolin which will be continued. (7) HTN (hypertension) ICD Code: I10 - Essential (primary) hypertension Plan: BP seems to be stable. Continue home antihypertensive medications. The patient currently on enalapril 10 mg by mouth twice a day, metoprolol 50 minutes by mouth daily. 10/6 Blood pressure still severely uncontrolled. Will increase enalapril to 20 mg po BID. (8) H/O deep venous thrombosis ICD Code: Z86.718 - Personal history of other venous thrombosis and embolism Plan: On Coumadin - Continued by admitting team. No evidence of gross bleeding. INR subtherapeutic. I will consult pharmacy to help manage dosing and PT/INR monitoring. Assessment and Plan GI prophylaxis: We'll add PPI as patient is on IV steroids. DVT prophylaxis: SCDs, patient on Coumadin fo h/o previous DVT. Problem Qualifiers (1) Iron deficiency anemia: Qualified Codes: D50.9 - Iron deficiency anemia, unspecified (2) CHF (congestive heart failure): Qualified Codes: I50.32 - Chronic diastolic (congestive) heart failure (3) HTN (hypertension): Qualified Codes: I10 - Essential (primary) hypertension [place] Pardo MD Jan 04, 2017 02:03
[2017-01-04] MEDS: ceFAZolin 2 GM PREMIX 50 ML IV SCH ×4 (02:07→23:46)
[2017-01-04] MEDS: RESP: ALBUTEROL 2.5 MG/IPRATROPIUM 0.5 MG NEB (SCH) NEB ×3 (07:41→20:00)
[2017-01-04 09:35] LABS: INTERNATIONAL NORMALIZED RATIO 2.3 RATIO
[2017-01-04 09:41] LABS: HEMATOCRIT 29.5 % (35.0-46.0); MEAN CORPUSCULAR HEMOGLOBIN 25.1 PG (27.0-34.0); MEAN CORPUSCULAR HGB CONC 31.8 % (32.0-36.0); PLATELET COUNT 228 TH/MM3 (150-450); RED BLOOD COUNT 3.73 MIL/MM3 (4.00-5.30); RED CELL DISTRIBUTION WIDTH 29.5 % (11.6-17.2)
[2017-01-04 09:44] LABS: BICARBONATE 30.4 MEQ/L (21.0-32.0); POTASSIUM 4.3 MEQ/L (3.5-5.1); REVIEW FLAG FINAL
[2017-01-04] MEDS: BUMETANIDE INJ 1 MG/4 ML VIAL IV PUSH SCH ×3 (11:11→23:46)
[2017-01-04] MEDS: FERROUS SULFATE 325 MG (65 MG ELEMENTAL IRON) TAB PO SCH ×2 (11:11→20:02)
[2017-01-04] MEDS: MAGNESIUM OXIDE 400 MG TAB PO SCH (11:12)
[2017-01-04] MEDS: LEVOFLOXACIN 750 MG TAB PO SCH (11:12)
[2017-01-04] MEDS: predniSONE 20 MG TAB PO SCH ×2 (11:13→20:01)
[2017-01-04] MEDS: amLODIPine BESYLATE 5 MG TAB PO SCH ×2 (11:13→20:02)
[2017-01-04] MEDS: POTASSIUM CHLORIDE 10 MEQ CONTROLLED RELEASE TAB PO SCH ×2 (11:13→20:01)
[2017-01-04] MEDS: SODIUM CHLORIDE 0.9% FLUSH 10 ML FLUSH IV FLUSH SCH ×2 (11:14→20:02)
[2017-01-04] MEDS: AMIODARONE 200 MG TAB PO SCH (11:14)
[2017-01-04] MEDS: METOPROLOL SUCCINATE 50 MG EXTENDED RELEASE TAB PO SCH (11:14)
--- NOTE | 2017-01-04 11:35 | HHI.PR ---
Subjective Remarks Follow up shortness of breath, COPD and anemia. Patient seen and examined today , sitting on side of bed comfortably. On supplemental O2 and Lifevest in place. Patient denies any new acute complaints overnight. Tolerating PO intake well, denies any recent fever, chills, cough, headache, abdominal pain, nausea, vomiting, diarrhea or dysuria. Ambulating well. Objective Vitals Vital Signs Date Time Temp Pulse Resp B/P (MAP) Pulse Ox O2 Delivery O2 Flow Rate FiO2 01/04/17 08:29 97.6 69 18 157/77 (103) 90 01/04/17 04:50 97.6 65 22 131/61 (84) 95 01/04/17 00:28 98.1 65 19 129/59 (82) 96 01/03/17 19:59 97.4 70 18 141/65 (90) 98 01/03/17 19:45 98 Nasal Cannula 3.00 01/03/17 15:35 98.1 78 20 174/80 (111) 99 01/03/17 15:15 69 01/03/17 13:15 76 01/03/17 12:14 97.5 72 20 162/75 (104) 96 I/O 01/03/17 01/03/17 01/03/17 01/04/17 01/04/17 01/04/17 06:59 14:59 22:59 06:59 14:59 22:59 Intake Total 850 ml 50 ml 890 ml Output Total 400 ml 850 ml 850 ml Balance 850 ml -350 ml 40 ml -850 ml Intake Oral 750 ml 840 ml IV Total 100 ml 50 ml 50 ml Output Urine Total 400 ml 850 ml 850 ml # Voids 6 1 # Bowel Movements 2 Result Diagram: 01/04/1747 01/04/1747 Imaging Last Impressions Chest CT 01/02/17 0000 Signed Impressions: Service Date/Time: December 14:24 - CONCLUSION: 1. Bilateral pleural effusions right greater than left. 2. Mild consolidation in the left lower lobe. 3. Marked cardiomegaly. 4. Anasarca. Sergio Haro MD Abdomen/Pelvis CT 01/02/17 0000 Signed Impressions: Service Date/Time: Tuesday, January 03, 2017 11:59 - CONCLUSION: 1. Marked cardiomegaly with progressive diffuse anasarca, small bilateral pleural effusions and small amount of ascites. Findings are likely cardiogenic. 2. Mild hepatomegaly which may reflect congestive hepatopathy. 3. No radiopaque renal calculi or obstructive uropathy. Improved diffuse bladder wall thickening in comparison to prior exam. 4. Remainder of the exam is unchanged. Tommie Polk MD Chest X-Ray 12/31/161958 Signed Impressions: Service Date/Time: Saturday, December 31, 2016 20:07 - CONCLUSION: 1. Cardiomegaly 2. Left lung increased density related to some degree of effusion and consolidation/atelectasis. Gregory Perry MD A/P Problem List: (1) Symptomatic anemia ICD Code: D64.9 - Anemia, unspecified (2) Iron deficiency anemia ICD Code: D50.9 - Iron deficiency anemia, unspecified (3) CHF (congestive heart failure) ICD Code: I50.9 - CHF (congestive heart failure) Status: Chronic (4) CKD (chronic kidney disease), stage III ICD Code: N18.3 - Chronic kidney disease, stage 3 (moderate) (5) COPD with acute exacerbation ICD Code: J44.1 - Chronic obstructive pulmonary disease with (acute) exacerbation (6) Bacteremia ICD Code: R78.81 - Bacteremia (7) HTN (hypertension) ICD Code: I10 - Essential (primary) hypertension (8) H/O deep venous thrombosis ICD Code: Z86.718 - Personal history of other venous thrombosis and embolism Assessment and Plan Symptomatic anemia Iron deficiency anemia - Presented with shortness of breath and dyspnea. - status post transfusion of 1 unit of packed blood cells. - No evidence of acute blood loss - Stool Hemoccult negative. - GI consulted, appreciate recommendations. Conservative management for now. Fu hemoglobin and transfuse as needed for symptomatic anemia or hemoglobin less than 8. Congestive heart failure - elevated BNP, however given the patient's elevated creatinine and possible chronic kidney disease, this could be falsely elevated. - chronically elevated BNP with the lowest number being in the low 1600s. - echocardiogram obtained on 12/12/16 reviewed, showing a normal left ventricular systolic function EF of 60%. Chronic kidney disease, stage III - Upon review of records the patient has had consistently elevated creatinine for this year. The most recent creatinine that I can find dates back to December 2014 and it was 0.79. Possibly some degree of sick kidney stage III. Continue to monitor BUN/creatinine, strict I's and O's and avoid nephrotoxins COPD with acute exacerbation - Continue IV steroids, methylprednisone 60 mg IV every 6 hours changed to oral prednisone. - Continue IV Levaquin for possible pneumonia as described on chest x-ray above. - Continue supplemental oxygen to keep oxygen saturations more than 92% Hypertension - Enalapril initially ordered but patient allergic to HUMBLE inhibitors. Continue on Metoprolol 50 mg by mouth daily and Amlodipine 5 mg PO daily will be increased to 10 mg PO daily. Continue to monitor BP trend. H/O deep venous thrombosis - Personal history of other venous thrombosis and embolism - On Coumadin - Continued by admitting team. No evidence of gross bleeding. INR subtherapeutic. Pharmacy consulted to help manage dosing and PT/INR monitoring. DVT prophylaxis: SCDs, patient on Coumadin for h/o previous DVT. Attending Statement Attestation Patient seen and examined with SHANNA Portillo. The exam, history, and the medical decision-making described in the above note were completed with the assistance of the dictating practitioner. I attest that I had a [id number] encounter with the patient on the same day, and personally performed all of the history, exam, or medical decision making. Discussed case with her thoroughly after seeing the patient, reviewed and agreed with the plan. Please see addendum in History, Physical examination. See below for any errata/additional input: Per patient, no significant improvement while being on antibiotics for 2 weeks. Breathing today is about the same, not back to baseline. Still coughing. Just had a breathing treatment Mildly short of breath but not in distress Mild rhonchi but no wheezing, decreased breath sounds bilateral bases Obese 1-2+ pitting edema Alert awake and oriented, no focal deficits. CT scan chest x-ray supports bilateral pleural effusion. There is also anasarca on CT scan of the abdomen. No significant improvement despite steroids and antibiotics. Will attempt further diuresis for possible congestive heart failure exacerbation. Increase diuresis, increase Bumex to every 8 hours, monitor urine output. Recheck BMP tomorrow. Agree with stopping HUMBLE inhibitor and increasing Norvasc Problem Qualifiers (1) Iron deficiency anemia: Qualified Codes: D50.9 - Iron deficiency anemia, unspecified (2) CHF (congestive heart failure): Qualified Codes: I50.32 - Chronic diastolic (congestive) heart failure (3) HTN (hypertension): Qualified Codes: I10 - Essential (primary) hypertension Rachelle Garner Jan 04, 2017 11:35 Miguelina Russo MD Jan 04, 2017 16:14
--- NOTE | 2017-01-04 16:51 | HHI.GIFU ---
Subjective Remarks Pt resting in bed, napping. NO bleeding. No complaints. (Dia Suarez) Objective Vitals I&O Vital Signs Date Time Temp Pulse Resp B/P (MAP) Pulse Ox O2 Delivery O2 Flow Rate FiO2 01/04/17 13:24 97.5 69 21 160/68 (98) 99 01/04/17 08:29 97.6 69 18 157/77 (103) 90 01/04/17 04:50 97.6 65 22 131/61 (84) 95 01/04/17 00:28 98.1 65 19 129/59 (82) 96 01/03/17 19:59 97.4 70 18 141/65 (90) 98 01/03/17 19:45 98 Nasal Cannula 3.00 I/O 01/03/17 01/03/17 01/03/17 01/04/17 01/04/17 01/04/17 07:00 15:00 23:00 07:00 15:00 23:00 Intake Total 850 ml 50 ml 890 ml Output Total 400 ml 850 ml 850 ml Balance 850 ml -350 ml 40 ml -850 ml Intake Oral 750 ml 840 ml IV Total 100 ml 50 ml 50 ml Output Urine Total 400 ml 850 ml 850 ml # Voids 6 1 # Bowel Movements 2 Laboratory Laboratory Tests Test 01/04/17 08:47 White Blood Count 8.0 Red Blood Count 3.73 Hemoglobin 9.4 Hematocrit 29.5 Mean Corpuscular Volume 79.0 Mean Corpuscular Hemoglobin 25.1 Mean Corpuscular Hemoglobin Concent 31.8 Red Cell Distribution Width 29.5 Platelet Count 228 Mean Platelet Volume 7.4 Prothrombin Time 26.0 Prothromb Time International Ratio 2.3 Blood Urea Nitrogen 33 Creatinine 1.43 Random Glucose 121 Calcium Level 9.0 Sodium Level 138 Potassium Level 4.3 Chloride Level 101 Carbon Dioxide Level 30.4 Anion Gap 7 Estimat Glomerular Filtration Rate 44 Date/Time Source Procedure Growth Status 01/02/17 00:40 Stool Stool Stool Occult Blood (VIN) - Final HEMOCCULT NEGATIVE Complete Physical Exam HEENT: PERRL; normocephalic; atraumatic; no jaundice. CHEST: CTA CARDIAC: Regular rate ABDOMEN: Soft, nondistended, nontender; bowel sounds are present in all four quadrants. EXTREMITIES: No clubbing, cyanosis, mild BLE edema SKIN: Normal; no rash; no jaundice. SOD CUTTER: No focal deficits; alert and oriented times three. (Dia Suarez) Assessment and Plan Plan ASSESSMENT: - Anemia. She came to have labs drawn and was found to be anemic. She denies any obvious blood loss or any GI symptoms. Of note, she was recently hospitalized and her H/H on discharge 12/27 was 7.3/ 23.5. HH on admission was 7.2/22.9. S/P 2 units of PRBC. HH improved. Her hemoccult stool was negative. Likely she has some anemia of chronic disease. She has a life vest and therefore we would hold on any endoscopic procedures unless she is actively bleeding. She is on coumadin for afib. - Ischemic Cardiomyopathy. Has hx of AICD, but was recently hospitalized for sepsis, left breast cellulitis, AICD generator/lead infection and had her AICD, Lead x 2 removed on 12/18/16. She is currently with a life vest. CTabd sugg congestive hepatopathy, anasarca, small ascites cardiomegaly. CT chest noted - Afib, on coumadin. - Recent AICD generator, lead, left breast cellulitis. S/P removal of AICD and leads x 2 12/18. Cx MSSA. She was discharged home with PICC and is scheduled to get Ancef 2 gram IV q8h until 01/29/17. - DM, HTN, COPD per attending. 01/04/17 HH stable. No obvious bleeding. PLAN: - ELAINA - Monitor HH - Transfuse as necessary - hold on endoscopy unless active bleeding - notify GI if active bleeding - Further recommendations to follow after patient is seen and examined by Dr. Deng (Dia Suarez) Physician Comments seen, examined agree with above we will consult hematology for possible iron infusion ct colonography op not a candidate for egd/colon at this point unless emergency gi will sign off call us as needed (Jerri Deng MD) Dia Suarez Jan 04, 2017 16:51 Jerri Deng MD Jan 04, 2017 17:28
[2017-01-04] MEDS: WARFARIN SOD 2.5 MG TAB PO SCH (17:05)
[2017-01-05] VITALS (9 sets, daily range): BP systolic 106–167; BP diastolic 55–76; PULSE 57–70; RESP 16–18; TEMP 95.3–97.3; O2SAT 92–100
[2017-01-05 03:18] LABS: AUTOMATED NEUTROPHIL # 6.2 TH/MM3 (1.8-7.7); BASOPHIL % 0.4 % (0.0-2.0); HEMATOCRIT 30.3 % (35.0-46.0); LYMPH % 3.4 % (9.0-44.0); LYMPHOCYTE # 0.2 TH/MM3 (1.0-4.8); MEAN CELL VOLUME 78.8 FL (80.0-100.0); MEAN CORPUSCULAR HEMOGLOBIN 24.4 PG (27.0-34.0); MEAN CORPUSCULAR HGB CONC 30.9 % (32.0-36.0); MONO % 8.1 % (0.0-8.0); NEUT % 88.1 % (16.0-70.0); PLATELET COUNT 237 TH/MM3 (150-450); RED BLOOD COUNT 3.84 MIL/MM3 (4.00-5.30); RED CELL DISTRIBUTION WIDTH 29.8 % (11.6-17.2); WHITE BLOOD COUNT 7.1 TH/MM3 (4.0-11.0)
[2017-01-05 03:19] LABS: ANION GAP 3 MEQ/L (5-15); BICARBONATE 34.5 MEQ/L (21.0-32.0); BLOOD UREA NITROGEN 37 MG/DL (7-18); CHLORIDE 100 MEQ/L (98-107); GLOMERULAR FILTRATION RATE 44 ML/MIN (>89); MAGNESIUM 1.5 MG/DL (1.5-2.5); POTASSIUM 4.4 MEQ/L (3.5-5.1); SODIUM (NA) 137 MEQ/L (136-145)
[2017-01-05 03:20] LABS: HEMO FLAGS AUTO DIFF
[2017-01-05 03:58] LABS: OVALOCYTES 1+ (NORMAL); SCAN/DIFF AUTO DIFF CONFIRMED; TARGET CELLS 1+ (NORMAL); TEARDROP RBCS 1+ (NORMAL)
[2017-01-05] MEDS ORDERED: MAGNESIUM SULFATE 1 GM PREMIX 100 ML IV ONE (04:30)
[2017-01-05 06:39] LABS: INTERNATIONAL NORMALIZED RATIO 2.5 RATIO; PROTHROMBIN TIME - PATIENT 29.3 SEC (9.8-11.6)
[2017-01-05] MEDS: RESP: ALBUTEROL 2.5 MG/IPRATROPIUM 0.5 MG NEB (SCH) NEB ×3 (08:00→21:17)
[2017-01-05] MEDS: predniSONE 20 MG TAB PO SCH (08:05)
[2017-01-05] MEDS: FERROUS SULFATE 325 MG (65 MG ELEMENTAL IRON) TAB PO SCH ×2 (08:05→19:56)
[2017-01-05] MEDS: amLODIPine BESYLATE 5 MG TAB PO SCH ×2 (08:05→19:56)
[2017-01-05] MEDS: BUMETANIDE INJ 1 MG/4 ML VIAL IV PUSH SCH ×2 (08:05→16:42)
[2017-01-05] MEDS: METOPROLOL SUCCINATE 50 MG EXTENDED RELEASE TAB PO SCH (08:05)
[2017-01-05] MEDS: ceFAZolin 2 GM PREMIX 50 ML IV SCH ×2 (08:05→16:42)
[2017-01-05] MEDS: MAGNESIUM OXIDE 400 MG TAB PO SCH (08:05)
[2017-01-05] MEDS: AMIODARONE 200 MG TAB PO SCH (08:05)
[2017-01-05] MEDS: POTASSIUM CHLORIDE 10 MEQ CONTROLLED RELEASE TAB PO SCH ×2 (08:05→19:56)
[2017-01-05] MEDS: LEVOFLOXACIN 750 MG TAB PO SCH (08:05)
[2017-01-05] MEDS: SODIUM CHLORIDE 0.9% FLUSH 10 ML FLUSH IV FLUSH SCH ×2 (08:06→20:01)
--- NOTE | 2017-01-05 09:37 | PD.CONS ---
HPI Consult Requested By Primary Care Physician Emily De La Cruz MD History of Present Illness 71-year-old female presents the emergency department with her family with reports of anemia, and was requested to come here for possible transfusion by her PCP. Patient was recently discharged from the hospital on 27 December after prolonged hospitalization for sepsis and infection of pacemaker/ defibrillator which was subsequently removed and she was discharge on a Wearable External Defibrillator (Life Vest), PICC line and home IV antibiotics treatment. Yesterday, while inpatient, she got shock by the LifeVest. Cardiology consulted evaluation. Review of Systems Consitutional: DENIES: Fatigue, Fever, Chills, Weight gain, Weight loss Eyes: DENIES: Amaurosis Fugax, Change in vision HEENT: DENIES: Lightheadedness, Change in hearing Respiratory: DENIES: See HPI, Cough, Snoring, Shortness of breath, Wheezing, Sputum production Cardiovascular: DENIES: See HPI, Chest pain, Palpitations, Syncope, Tachycardia Gastrointestinal: DENIES: Nausea, Vomiting, Change in bowel habits, Reflux, Bloody stools, Melena Genitourinary: DENIES: Urinary incontinence, Difficulty voiding Integumentary: DENIES: Rash Neurologic: DENIES: Tingling or numbness, Memory problems, Poor Balance, Stroke symptoms Musculoskeletal: DENIES: Joint pain, Muscle pain, Limited range of motion, Back pain Psychiatric: DENIES: Anxiety, Depression, Sleep disturbances Hematologic: DENIES: Bruising tendencies, Bleeding tendencies Endocrine: DENIES: Weight gain, Weight loss, Thyroid disease Past Family Social History Allergies: Coded Allergies: penicillin G (Unverified Allergy, Severe, rash, 12/31/16) benazepril (Unverified Allergy, Mild, 12/31/16) HUMBLE inhibitor angioedema, swelling of the face lips and anterior tongue captopril (Unverified Allergy, Mild, 12/31/16) HUMBLE inhibitor angioedema, swelling of the face lips and anterior tongue enalaprilat (Unverified Allergy, Mild, 12/31/16) HUMBLE inhibitor angioedema, swelling of the face lips and anterior tongue fosinopril (Unverified Allergy, Mild, 12/31/16) HUMBLE inhibitor angioedema, swelling of the face lips and anterior tongue lisinopril (Unverified Allergy, Mild, 12/31/16) HUMBLE inhibitor angioedema, swelling of the face lips and anterior tongue quinapril (Unverified Allergy, Mild, 12/31/16) HUMBLE inhibitor angioedema, swelling of the face lips and anterior tongue Uncoded Allergies: NON COMPATIBLE PACEMAKER (Adverse Reaction, Severe, MRI PRECAUTION / PACEMAKER, 11/03/14) MRI PRECAUTION. PACEMAKER Past Medical History HTN DM Ischemic cardiomyopathy CHF Atrial fibrillation, on coumadin COPD on home O2 Vtach Anemia Recent breast cellulitis, sepsis, AICD generator/lead infection Past Surgical History Breast surgery PPM placement Right breast lumpectomy Appendectomy Cholecystectomy Hysterectomy AICD placement Recent AICD and lead removal Colonoscopy Reported Medications Reported Meds & Active Scripts Active Ferrous Sulfate 325 Mg (65 Mg Iron) Tablet 325 Mg PO BID Bumetanide 2 Mg Tab 2 Mg PO DAILY Coumadin (Warfarin) 3 Mg Tab 3 Mg PO DAILY@1600 Magnesium 200 Mg Tab 400 Mg PO DAILY K-Tab (Potassium Chloride) 10 Meq Tab 10 Meq PO BID Epinephrine Inj 1 Mg/Ml (1 Ml) Inj 0.3 Mg IV PUSH ONCE PRN Cefazolin Inj (Cefazolin Sodium/Dextrose) 2 Gm/50 Ml Bagp 2 Gm IV Q8H 35 Days Oxygen (O2) (Miscellaneous Medication) Inha Liter JENNIFER.CANULA CONTINUOUS Oxygen Concentrator Portable Gaseous 2 L/min via Nasal Canula Continuous For 99 months Defibrillator Jacket (Device) 1 Ea Device Ea EXTERNAL ONCE Energy = 150 Joules; VT Threshold = 150 BPM; VF Threshold = 200 BPM Use up to 90 days only Reported Bacliff (Hydrocodone-Acetaminophen) 5-325 mg Tab 1 Tab PO BID PRN Enalapril (Enalapril Maleate) 10 Mg Tab 10 Mg PO BID Metoprolol Succinate ER 24 HR (Metoprolol Succinate) 50 Mg Tab 50 Mg PO DAILY Amlodipine (Amlodipine Besylate) 5 Mg Tab 5 Mg PO DAILY Amiodarone (Amiodarone HCl) 200 Mg Tab 200 Mg PO DAILY Active Ordered Medications Current Medications Medications (Trade) Dose Ordered Sig/Juna Route Start Time Stop Time Status Last Admin (NS Flush) 2 ml UNSCH PRN IV FLUSH 12/31/16 21:30 01/03/17 17:38 (NS Flush) 2 ml BID IV FLUSH 01/01/17 09:00 01/05/17 08:06 (Narcan Inj) 0.4 mg UNSCH PRN IV PUSH 12/31/16 21:30 (Cordarone) 200 mg DAILY PO 01/01/17 09:00 01/05/17 08:05 (Ferrous Sulfate) 325 mg BID PO 01/01/17 09:00 01/05/17 08:05 (Bacliff 5-325 Mg) 1 tab BID PRN PO 01/01/17 01:15 01/03/17 21:39 (Toprol Xl) 50 mg DAILY PO 01/01/17 09:00 01/05/17 08:05 (KCl) 10 meq BID PO 01/01/17 09:00 01/05/17 08:05 (Mag-Ox) 400 mg DAILY PO 01/01/17 09:00 01/05/17 08:05 Cefazolin Sodium/ Dextrose 50 ml @ 100 mls/hr Q8H IV 01/01/17 02:00 01/05/17 08:05 (Levaquin) 750 mg DAILY PO 01/01/17 09:00 01/05/17 08:05 (Duoneb Neb) 1 ampule Q6HR WHILE AWAKE NEB NEB 01/01/17 20:00 01/04/17 14:02 (Duoneb Neb) 1 ampule Q2HR NEB PRN NEB 01/01/17 19:30 (Deltasone) 20 mg BID PO 01/03/17 21:00 01/05/17 08:05 Pharmacy Profile Note 0 ml @ 0 mls/hr UNSCH OTHER 01/04/17 02:15 (Coumadin) 2.5 mg DAILY@1600 PO 01/04/17 16:00 01/04/17 17:05 (Norvasc) 5 mg BID PO 01/04/17 21:00 01/05/17 08:05 (Bumex Inj) 1 mg Q8H IV PUSH 01/04/17 17:00 01/05/17 08:05 Family History Denies any family history of esophageal, gastric, or colorectal cancer Social History Quit smoking one month ago. Smoked for from [id number] Denies etoh abuse or drug abuse Physical Exam Vital Signs Vital Signs Date Time Temp Pulse Resp B/P (MAP) Pulse Ox O2 Delivery O2 Flow Rate FiO2 01/05/17 08:00 97.3 67 16 135/64 (87) 100 01/05/17 04:00 96.0 64 17 116/56 (76) 100 01/05/17 00:00 96.8 70 17 143/63 (89) 92 01/04/17 20:00 96.0 66 17 119/58 (78) 96 01/04/17 20:00 96 Nasal Cannula 3.00 01/04/17 19:55 68 01/04/17 17:35 97.8 71 20 156/67 (96) 98 01/04/17 13:24 97.5 69 21 160/68 (98) 99 Physical Exam GENERAL: Well-nourished, well-developed patient. SKIN: Warm and dry. HEAD: Normocephalic. EYES: No scleral icterus. No injection or drainage. NECK: Supple, trachea midline. No JVD or lymphadenopathy. CARDIOVASCULAR: Regular rate and rhythm without murmurs, gallops, or rubs. RESPIRATORY: Breath sounds equal bilaterally. No accessory muscle use. GASTROINTESTINAL: Abdomen soft, non-tender, nondistended. EXTREMITIES: No cyanosis, or edema. NEUROLOGICAL: Awake, alert, and oriented x 3. Non-focal. Laboratory Laboratory Tests Test 01/05/17 00:35 01/05/17 05:50 White Blood Count 7.1 Red Blood Count 3.84 Hemoglobin 9.4 Hematocrit 30.3 Mean Corpuscular Volume 78.8 Mean Corpuscular Hemoglobin 24.4 Mean Corpuscular Hemoglobin Concent 30.9 Red Cell Distribution Width 29.8 Platelet Count 237 Mean Platelet Volume 8.1 Neutrophils (%) (Auto) 88.1 Lymphocytes (%) (Auto) 3.4 Monocytes (%) (Auto) 8.1 Eosinophils (%) (Auto) 0.0 Basophils (%) (Auto) 0.4 Neutrophils # (Auto) 6.2 Lymphocytes # (Auto) 0.2 Monocytes # (Auto) 0.6 Eosinophils # (Auto) 0.0 Basophils # (Auto) 0.0 CBC Comment AUTO DIFF Differential Comment AUTO DIFF CONFIRMED Target Cells 1+ Tear Drop Cells 1+ Ovalocytes 1+ Blood Urea Nitrogen 37 Creatinine 1.43 Random Glucose 161 Calcium Level 8.8 Magnesium Level 1.5 Sodium Level 137 Potassium Level 4.4 Chloride Level 100 Carbon Dioxide Level 34.5 Anion Gap 3 Estimat Glomerular Filtration Rate 44 Troponin I LESS THAN 0.02 Prothrombin Time 29.3 Prothromb Time International Ratio 2.5 Date/Time Source Procedure Growth Status 01/02/17 00:40 Stool Stool Stool Occult Blood (VIN) - Final HEMOCCULT NEGATIVE Complete Result Diagram: 01/05/173401/05/1734 Imaging Last Impressions Chest CT 01/02/17 0000 Signed Impressions: Service Date/Time: December 14:24 - CONCLUSION: 1. Bilateral pleural effusions right greater than left. 2. Mild consolidation in the left lower lobe. 3. Marked cardiomegaly. 4. Anasarca. Sergio Haro MD Abdomen/Pelvis CT 01/02/17 0000 Signed Impressions: Service Date/Time: Tuesday, January 03, 2017 11:59 - CONCLUSION: 1. Marked cardiomegaly with progressive diffuse anasarca, small bilateral pleural effusions and small amount of ascites. Findings are likely cardiogenic. 2. Mild hepatomegaly which may reflect congestive hepatopathy. 3. No radiopaque renal calculi or obstructive uropathy. Improved diffuse bladder wall thickening in comparison to prior exam. 4. Remainder of the exam is unchanged. Tommie Polk MD Chest X-Ray 12/31/161958 Signed Impressions: Service Date/Time: Saturday, December 31, 2016 20:07 - CONCLUSION: 1. Cardiomegaly 2. Left lung increased density related to some degree of effusion and consolidation/atelectasis. Gregory Perry MD Assessment and Plan Problem List: (1) Defibrillator discharge ICD Codes: Z45.02 - Encounter for adjustment and management of automatic implantable cardiac defibrillator Plan: 71 y/o F with above hx and findings consulted for defibrillator discharge. According to reports there is no sign of TACHYARRHYTHMIAS, it looks like an inappropriate shock. LifeVest appliance service representative will be interrogating device today. Recommendations: 1. Cont medical management 2. Life Vest interrogation today (2) Ventricular tachyarrhythmia ICD Codes: I47.2 - Ventricular tachyarrhythmia Status: Acute (3) CHF (congestive heart failure) ICD Codes: I50.9 - CHF (congestive heart failure) Status: Chronic (4) HTN (hypertension) ICD Codes: I10 - Essential (primary) hypertension (5) CKD (chronic kidney disease), stage III ICD Codes: N18.3 - Chronic kidney disease, stage 3 (moderate) (6) COPD with acute exacerbation ICD Codes: J44.1 - Chronic obstructive pulmonary disease with (acute) exacerbation (7) Symptomatic anemia ICD Codes: D64.9 - Anemia, unspecified Problem Qualifiers (1) CHF (congestive heart failure): Qualified Codes: I50.32 - Chronic diastolic (congestive) heart failure (2) HTN (hypertension): Qualified Codes: I10 - Essential (primary) hypertension Wayne Moise MD Jan 05, 2017 09:37
--- NOTE | 2017-01-05 12:34 | HHI.PR ---
Subjective Remarks Follow-up for shortness of breath Patient diuresed overnight, shortness of breath a lot better. However last night, he fumbled that her batteries and her LifeVest give her a shot. Denies any chest pain prior to the incident, no dizziness or lightheadedness. Denies any chest pain at present Objective Vitals Vital Signs Date Time Temp Pulse Resp B/P (MAP) Pulse Ox O2 Delivery O2 Flow Rate FiO2 01/05/17 11:03 100 Nasal Cannula 3.00 01/05/17 08:00 97.3 67 16 135/64 (87) 100 01/05/17 04:00 96.0 64 17 116/56 (76) 100 01/05/17 00:00 96.8 70 17 143/63 (89) 92 01/04/17 20:00 96.0 66 17 119/58 (78) 96 01/04/17 20:00 96 Nasal Cannula 3.00 01/04/17 19:55 68 01/04/17 17:35 97.8 71 20 156/67 (96) 98 01/04/17 13:24 97.5 69 21 160/68 (98) 99 I/O 01/04/17 01/04/17 01/04/17 01/05/17 01/05/17 01/05/17 07:00 15:00 23:00 07:00 15:00 23:00 Intake Total 450 ml 390 ml 50 ml Output Total 850 ml Balance -850 ml 450 ml 390 ml 50 ml Intake Oral 240 ml IV Total 450 ml 150 ml 50 ml Output Urine Total 850 ml # Voids 6 Result Diagram: 01/05/17 0035 01/05/17 003 Objective Remarks Not in distress Regular rate and rhythm, no murmurs Decreased breath sounds at bases, no crackles Obese 1+ pitting edema, better Alert awake and oriented, no focal deficits. A/P Problem List: (1) Symptomatic anemia ICD Code: D64.9 - Anemia, unspecified (2) Iron deficiency anemia ICD Code: D50.9 - Iron deficiency anemia, unspecified (3) CHF (congestive heart failure) ICD Code: I50.9 - CHF (congestive heart failure) Status: Chronic (4) CKD (chronic kidney disease), stage III ICD Code: N18.3 - Chronic kidney disease, stage 3 (moderate) (5) COPD with acute exacerbation ICD Code: J44.1 - Chronic obstructive pulmonary disease with (acute) exacerbation (6) Bacteremia ICD Code: R78.81 - Bacteremia (7) HTN (hypertension) ICD Code: I10 - Essential (primary) hypertension (8) H/O deep venous thrombosis ICD Code: Z86.718 - Personal history of other venous thrombosis and embolism Assessment and Plan This is a 71-year-old female with history of chronic kidney disease, anemia and COPD presenting with shortness of breath Symptomatic anemia Iron deficiency anemia - Presented with shortness of breath and dyspnea. - status post transfusion of 1 unit of packed blood cells. No evidence of acute blood loss. - Stool Hemoccult negative. - GI consulted, appreciate recommendations. Conservative management for now, no EGD or colonoscopy for now, for colonoscopy as outpatient. Hematology consulted by GI for iron infusion. Iron sucrose started. Congestive heart failure exacerbation - echocardiogram obtained on 12/12/16 reviewed, showing a normal left ventricular systolic function EF of 60%. CT scan and chest x-ray consistent with pleural effusion and heart failure, abdominal CT scan also showed anasarca , Bumex increased yesterday, continue urine output monitoring, recheck BMP tomorrow. BMP stable. Continue metoprolol, amiodarone` Chronic kidney disease, stage III - Upon review of records the patient has had consistently elevated creatinine for this year. The most recent creatinine that I can find dates back to December 2014 and it was 0.79. Possibly some degree of sick kidney stage III. Continue to monitor BUN/creatinine, strict I's and O's and avoid nephrotoxins, monitor while being diuresed. COPD with acute exacerbation -Taper prednisone, stop Levaquin, oxygen support. Continue Ancef for now, discontinue in a few days if continues to be better with diuresis LifeVest shock- could be inappropriate, patient was fumbling around with her LifeVest, discussed with cardiology. For LifeVest interrogation. Hypertension - Enalapril initially ordered but patient allergic to HUMBLE inhibitors. Continue on Metoprolol 50 mg by mouth daily and Amlodipine 10 mg daily. H/O deep venous thrombosis - Personal history of other venous thrombosis and embolism - On Coumadin - Continued by admitting team. No evidence of gross bleeding. INR subtherapeutic. Pharmacy consulted to help manage dosing and PT/INR monitoring. DVT prophylaxis: SCDs, patient on Coumadin for h/o previous DVT. Problem Qualifiers (1) Iron deficiency anemia: Qualified Codes: D50.9 - Iron deficiency anemia, unspecified (2) CHF (congestive heart failure): Qualified Codes: I50.32 - Chronic diastolic (congestive) heart failure (3) HTN (hypertension): Qualified Codes: I10 - Essential (primary) hypertension Miguelina Russo MD Jan 05, 2017 12:34
[2017-01-05] MEDS: IRON SUCROSE INJ 200 MG in SODIUM CHLORIDE 0.9% INJ 100 ML IV SCH (13:29)
--- NOTE | 2017-01-05 14:11 | MB ---
cc: LIV REYES MD DATE OF CONSULTATION: 01/05/2017. REASON FOR CONSULTATION: Microcytic anemia. CONSULTATION REQUESTED BY: The Hospitalist Service. CHIEF COMPLAINT: Ms. Dailey reports having been found to be anemia by her home health nurse on 12/31/2016. She was advised to come into the hospital for transfusion. The patient reports continued pain and swelling along her left chest wall and also involving her left breast. HISTORY OF PRESENT ILLNESS: Ms. Dailey is a very pleasant 71-year-old female with multiple medical comorbid conditions. Her major medical comorbid conditions including ischemic cardiomyopathy with an left ventricular ejection fraction of approximately 15%, she has atrial fibrillation, she is chronically on anticoagulation with warfarin, she has diabetes, hypertension, chronic renal insufficiency and resultant anemia of chronic renal insufficiency. She recently was found to have a methicillin-sensitive Staph aureus (MSSA) bacteremia secondary to an infected AICD/defibrillator which was removed from her left chest along with the guidewires in late November of 2016. She has a PICC line with which she is receiving IV antibiotics. The patient was recently discharged from this hospital to home where she had been receiving IV antibiotics through home health nursing care. Routine blood work done earlier this week indicated hemoglobin of 7.2 grams/dL. The patient was recommended hospitalization for transfusion support. The hematology service has been asked to see the patient for further workup and management of her anemia. It should be noted that at presentation her hemoglobin was 7.2 grams/dL associated with an MCV of 75. Her platelet count was 237,000. PAST MEDICAL HISTORY: 1. Multifactorial anemia. 2. Ischemic cardiomyopathy with left ventricular ejection fraction of 10% to 15%. 3. Coronary artery disease. 4. Type 2 diabetes. 5. Hypertension. 6. Atrial fibrillation. 7. COPD on oxygen supplementation. PAST SURGICAL HISTORY: 1. Pacemaker placement with ICD. 2. Right breast lumpectomy. 3. Appendectomy. 4. Cholecystectomy. 5. Hysterectomy. 6. Previous breast surgery. ALLERGIES: 1. BENAZEPRIL. 2. CAPTOPRIL. 3. ENALAPRIL. 4. FOSINOPRIL. 5. LISINOPRIL. 6. PENICILLIN. 7. QUINAPRIL (essentially all HUMBLE inhibitors). CURRENT INPATIENT MEDICATIONS: 1. Cephazolin 2 grams IV q. 8 hours. 2. Iron sucrose 200 milligrams IV daily x3. 3. Warfarin. 4. DuoNeb every six hours. 5. Amiodarone 200 milligrams p.o. daily. 6. Amlodipine 5 milligrams p.o. twice a day. 7. Bumex 1 milligram every 8 hours. 8. Ferrous sulfate 325 milligrams p.o. twice a day. 9. Magnesium oxide 400 milligrams p.o. daily. 10. Metoprolol 50 milligrams p.o. daily. 11. Potassium chloride 10 milliequivalents p.o. twice a day. 12. Prednisone 20 milligrams p.o. daily. 13. Warfarin 2.5 milligrams daily (pharmacy dosing). REVIEW OF SYSTEMS: A thirteen point review of systems was obtained and the following are the pertinent positives and negatives: CONSTITUTIONAL: The patient reports fatigue, weakness, breathlessness with exertion. She denies fevers, chills or night sweats. HEAD, EYES, EARS, NOSE, THROAT: Denies headaches, blurry vision, difficulty swallowing. RESPIRATORY: Reports difficulty breathing with exertion. Denies cough or hemoptysis. She tells me she is on oxygen supplementation. She was a smoker. She does have COPD. CARDIOVASCULAR: Denies angina. Denies palpitations. She tells me she has congestive heart failure. She tells me she has a Life Pack, which is an external defibrillator vest. GI: Denies nausea or vomiting, diarrhea, hematochezia or melena. She specifically denies blood in the stools. She denies abdominal distention or yellow jaundice. UG: Denies dysuria, hematuria or urinary incontinence. She denies vaginal bleeding. TELEGRAPH OFFICE MANAGER: Reports feeling generally weak but denies any focal sensorimotor deficits other than numbness of the toes. BREASTS: She reports her right breast has been swollen. She tells me she has a discharge from the breast at the site of previous drain placement. PHYSICAL EXAMINATION: VITAL SIGNS: The vital signs reveal temperature 95.3 degrees Fahrenheit, heart rate 58 beats per minute, respiratory rate 17, blood pressure 167/76, 02 saturations are 98% on three liters nasal cannula. GENERAL PHYSICAL APPEARANCE: Ms. Dailey is an elderly -[place] female. She is sitting up at the bedside. She is eating lunch. Her daughter and son-in-law are at bedside. She appears to be in no acute distress and has a very pleasant disposition. HEAD, EYES, EARS, NOSE, THROAT: Head is atraumatic and normocephalic. Conjunctivae are mildly pale. The sclerae are anicteric. Extraocular muscles intact. Pupils equal, round and reactive to light and accommodation. ORAL EXAM: No pharyngeal erythema. NECK EXAM: No palpable cervical or supraclavicular lymphadenopathy. RESPIRATORY EXAM: Poor inspiratory effort but good air movement over the right and left lung over upper, lower and mid lung zones. CARDIOVASCULAR EXAM: Faint heart sounds. Irregular rhythm. S1 and S2. Peripheral pulses are faint. She is wearing a LifeVest defibrillator (external defibrillator). ABDOMINAL EXAM: Protuberant, soft and nontender and nondistended. No palpable organ enlargement. LOWER EXTREMITIES: Trace pretibial edema. No calf tenderness. MUSCULOSKELETAL: She has generally decreased muscle mass, tone and strength. TELEGRAPH OFFICE MANAGER: Without any focal sensorimotor deficits. LABORATORY FINDINGS: Blood work dated 01/05/2017: Chemistries: Sodium 137, potassium 4.4, chloride 100, bicarbonate 34.5, BUN 37, creatinine 1.43, eGFR is 44, random glucose of 161, calcium is 8.8, magnesium is 1.5. AST 31. ALT 7. Alkaline phosphatase 119. Serum iron studies dated 12/26/2016: Serum iron level 21, TIBC 463, ferritin level 26, percent iron saturation is 4.5. Stool for occult blood was negative on 01/02/2017. CBC dated 01/05/2017: White blood cell count 7.1, hemoglobin 9.4 grams/dL, hematocrit 30.3%, MCV 78.8, RDW is elevated at 29.8. Platelet count is 237,000. Absolute neutrophil count is 6.2. Absolute lymphocyte count is 0.2. Review of peripheral smear performed by myself on blood drawn on 01/04/2017: 1. Red blood cells: Numerous target cells noted. Marked hypochromasia, polychromasia, and cigar-shaped cells. 2. Platelets: Within normal limits. 3. WBCs: Neutrophils have normal nuclear segmentation, normal cytoplasmic granulation. Lymphocytes are rare and markedly decreased. There are no blasts or immature cells in circulation noted. ASSESSMENT: Ms. Dailey is a very pleasant 71-year-old female with multiple medical comorbid conditions including diabetes, ischemic cardiomyopathy, hypertension, atrial fibrillation, chronically on anticoagulation. She recently was found to have an infection of an implanted defibrillator/permanent pacemaker in late November, she underwent removal of the pacemaker as well as the wires. She was found to have an abscess of the left chest wall with involvement of the left breast. She remains on cephazolin antibiotic therapy for management of the septicemia. In addition to all this, the patient does have chronic kidney insufficiency. I did review her peripheral smear and findings are consistent with iron deficiency given the hypochromasia of the red blood cells. It is possible she may have additional underlying hemoglobinopathy given the presence of numerous target cells in her circulation as well as stomatocytes. The hematology service has been asked to see her for optimization of management of her anemia. She is status post two unit red cell transfusions, which was delivered on 12/31/2016. RECOMMENDATIONS: 1. Microcytic anemia: Her serum iron studies dated 12/26/2016 indicate findings consistent with iron deficiency. I have requested an erythropoietin level to be done. I have also empirically initiated on her on intravenous iron replacement therapy with iron sucrose. I did review her stool for occult blood testing samples submitted on 01/02/2017 and this was negative. Repeat sample has been ordered as well. I would be my assessment that this patient's anemia is multifactorial; her recent systemic infection likely has resulted in a systemic inflammatory condition, which is not conducive for optimal red cell synthesis. Additionally she does have some renal insufficiency as well as iron deficiency, all of which are contributing as well to her anemia. It would be my recommendation to continue treating her methicillin-sensitive Staph aureus sepsis while repleting her body iron stores. The hematology service will monitor her with you. MD EL Gonzáles/PRUDENCE /1:16 PM /1:31 PM
[2017-01-05] MEDS: WARFARIN SOD 2.5 MG TAB PO SCH (16:42)
[2017-01-05 19:00] LABS: FERRITIN 62 NG/ML (8-252)
[2017-01-05 19:08] LABS: TRANSFERRIN IRON PROFILE 294 MG/DL (200-360)
[2017-01-06] VITALS (7 sets, daily range): BP systolic 105–143; BP diastolic 53–68; PULSE 61–82; RESP 16–18; TEMP 95.2–97.5; O2SAT 92–99
[2017-01-06] MEDS: ceFAZolin 2 GM PREMIX 50 ML IV SCH ×3 (00:20→18:00)
[2017-01-06] MEDS: BUMETANIDE INJ 1 MG/4 ML VIAL IV PUSH SCH ×3 (00:20→17:00)
[2017-01-06 06:28] LABS: INTERNATIONAL NORMALIZED RATIO 2.9 RATIO; PROTHROMBIN TIME - PATIENT 33.9 SEC (9.8-11.6)
[2017-01-06 06:54] LABS: BICARBONATE 35.8 MEQ/L (21.0-32.0); MAGNESIUM 1.5 MG/DL (1.5-2.5); POTASSIUM 4.4 MEQ/L (3.5-5.1)
[2017-01-06] MEDS ORDERED: predniSONE 20 MG TAB PO SCH (09:00)
--- NOTE | 2017-01-06 09:49 | HHI.PR ---
Subjective Remarks Follow up shortness of breath. Patient seen and examined. Sitting up on side of bed comfortably. Denies any new acute complaints overnight. Denies any chest pain, cough, shortness of breath, n/v/d or dysuria. Tolerating PO intake. States she is ready to go home. Objective Vitals Vital Signs Date Time Temp Pulse Resp B/P (MAP) Pulse Ox O2 Delivery O2 Flow Rate FiO2 01/06/17 04:00 96.8 66 18 131/62 (85) 99 01/06/17 00:00 95.2 63 18 112/53 (72) 99 01/05/17 21:18 93 Nasal Cannula 2.00 01/05/17 20:00 95.5 61 18 106/55 (72) 94 01/05/17 19:54 94 Nasal Cannula 3.00 01/05/17 19:31 57 01/05/17 16:00 95.4 63 16 153/67 (95) 98 01/05/17 12:00 95.3 58 17 167/76 (106) 98 01/05/17 11:03 100 Nasal Cannula 3.00 I/O 01/05/17 01/05/17 01/05/17 01/06/17 01/06/17 01/06/17 07:00 15:00 23:00 07:00 15:00 23:00 Intake Total 390 ml 50 ml 780 ml 290 ml Output Total 600 ml Balance 390 ml 50 ml 780 ml -310 ml Intake Oral 240 ml 620 ml 240 ml IV Total 150 ml 50 ml 160 ml 50 ml Output Urine Total 600 ml # Voids 6 8 5 # Bowel Movements 3 Result Diagram: 01/05/17 0035 01/06/17 0600 Imaging Last Impressions Chest CT 01/02/17 0000 Signed Impressions: Service Date/Time: December 14:24 - CONCLUSION: 1. Bilateral pleural effusions right greater than left. 2. Mild consolidation in the left lower lobe. 3. Marked cardiomegaly. 4. Anasarca. Sergio Haro MD Abdomen/Pelvis CT 01/02/17 0000 Signed Impressions: Service Date/Time: Tuesday, January 03, 2017 11:59 - CONCLUSION: 1. Marked cardiomegaly with progressive diffuse anasarca, small bilateral pleural effusions and small amount of ascites. Findings are likely cardiogenic. 2. Mild hepatomegaly which may reflect congestive hepatopathy. 3. No radiopaque renal calculi or obstructive uropathy. Improved diffuse bladder wall thickening in comparison to prior exam. 4. Remainder of the exam is unchanged. Tommie Polk MD Chest X-Ray 12/31/161958 Signed Impressions: Service Date/Time: Saturday, December 31, 2016 20:07 - CONCLUSION: 1. Cardiomegaly 2. Left lung increased density related to some degree of effusion and consolidation/atelectasis. Gregory Perry MD Objective Remarks GENERAL: Well-nourished, well-developed patient female patient, sitting up on side of bed in nad. On supplemental O2. SKIN: Warm and dry. No rash. HEENT: Normocephalic. No scleral icterus. No injection or drainage. Supple, trachea midline. No JVD or lymphadenopathy. CARDIOVASCULAR: Regular rate and rhythm without murmurs, gallops, or rubs. RESPIRATORY: CTA. Breath sounds equal bilaterally. No accessory muscle use. GASTROINTESTINAL: Abdomen soft, non-tender, nondistended. BS x 4 q. MUSCULOSKELETAL: No cyanosis, or edema. BACK: Nontender without obvious deformity. No CVA tenderness. A/P Problem List: (1) Symptomatic anemia ICD Code: D64.9 - Anemia, unspecified (2) Iron deficiency anemia ICD Code: D50.9 - Iron deficiency anemia, unspecified (3) CHF (congestive heart failure) ICD Code: I50.9 - CHF (congestive heart failure) Status: Chronic (4) CKD (chronic kidney disease), stage III ICD Code: N18.3 - Chronic kidney disease, stage 3 (moderate) (5) COPD with acute exacerbation ICD Code: J44.1 - Chronic obstructive pulmonary disease with (acute) exacerbation (6) Bacteremia ICD Code: R78.81 - Bacteremia (7) HTN (hypertension) ICD Code: I10 - Essential (primary) hypertension (8) H/O deep venous thrombosis ICD Code: Z86.718 - Personal history of other venous thrombosis and embolism Assessment and Plan This is a 71-year-old female with history of chronic kidney disease, anemia and COPD presenting with shortness of breath Symptomatic anemia Iron deficiency anemia - Presented with shortness of breath and dyspnea. - status post transfusion of 1 unit of packed blood cells. No evidence of acute blood loss. - Stool Hemoccult negative. - GI consulted, appreciate recommendations. Conservative management for now, no EGD or colonoscopy for now, for colonoscopy as outpatient. - Hematology consulted by GI for iron infusion. Dr. Love saw patient and ordered IV iron supplementation x 3. Patient has received two doses of IV iron, spoke to Dr. Love who is OK with DC with two doses given of IV iron and to follow up as new patient with them in the office. Congestive heart failure exacerbation - echocardiogram obtained on 12/12/16 reviewed, showing a normal left ventricular systolic function EF of 60%. CT scan and chest x-ray consistent with pleural effusion and heart failure, abdominal CT scan also showed anasarca. Creatinine improving 1.32 today. Bumex IV continued, 1 mg q8hr. Continue metoprolol, amiodarone. Chronic kidney disease, stage III - Upon review of records the patient has had consistently elevated creatinine for this year. The most recent creatinine that I can find dates back to December 2014 and it was 0.79. Possibly some degree of sick kidney stage III. Continue to monitor BUN/creatinine, strict I's and O's and avoid nephrotoxins, monitor while being diuresed. COPD with acute exacerbation -Taper prednisone, Levaquin dc'd, oxygen support. Continue Ancef for now, discontinue in a few days if continues to be better with diuresis. Duonebs scheduled and PRN wheezing. LifeVest shock: Dr. Mcclelland has seen patient and orders for LifeVest interrogation. Spoke to Adi who works with [employer] who said she was shocked inappropriately. Will have report faxed to floor. Spoke to Dr. Mcclelland who has cleared patient for DC from standpoint, recommendations to follow up with cardiology in office. Hypertension: Continue on Metoprolol 50 mg by mouth daily and Amlodipine 10 mg daily. Stable. H/O deep venous thrombosis - Personal history of other venous thrombosis and embolism - On Coumadin. No evidence of gross bleeding. INR improving 2.9. Pharmacy consulted to help manage dosing and PT/INR monitoring. DVT prophylaxis: SCDs, patient on Coumadin for h/o previous DVT. Problem Qualifiers (1) Iron deficiency anemia: Qualified Codes: D50.9 - Iron deficiency anemia, unspecified (2) CHF (congestive heart failure): Qualified Codes: I50.32 - Chronic diastolic (congestive) heart failure (3) HTN (hypertension): Qualified Codes: I10 - Essential (primary) hypertension Rachelle Garner Jan 06, 2017 09:49
[2017-01-06] MEDS: RESP: ALBUTEROL 2.5 MG/IPRATROPIUM 0.5 MG NEB (SCH) NEB ×2 (10:38→14:32)
[2017-01-06] MEDS: IRON SUCROSE INJ 200 MG in SODIUM CHLORIDE 0.9% INJ 100 ML IV SCH (11:56)
[2017-01-06] MEDS: MAGNESIUM OXIDE 400 MG TAB PO SCH (12:00)
[2017-01-06] MEDS: METOPROLOL SUCCINATE 50 MG EXTENDED RELEASE TAB PO SCH (12:00)
[2017-01-06] MEDS: amLODIPine BESYLATE 5 MG TAB PO SCH (12:00)
[2017-01-06] MEDS: FERROUS SULFATE 325 MG (65 MG ELEMENTAL IRON) TAB PO SCH (12:01)
[2017-01-06] MEDS: AMIODARONE 200 MG TAB PO SCH (12:01)
[2017-01-06] MEDS: POTASSIUM CHLORIDE 10 MEQ CONTROLLED RELEASE TAB PO SCH (12:05)
[2017-01-06] MEDS: SODIUM CHLORIDE 0.9% FLUSH 10 ML FLUSH IV FLUSH SCH (12:06)
--- NOTE | 2017-01-06 12:57 | HHI.DS ---
Discharge Summary Admission Date Jan 01, 2017 at 01:17 Discharge Date: Jan 06, 2017 Admitting Diagnosis CHF/Anemia (1) Symptomatic anemia ICD Code: D64.9 - Anemia, unspecified (2) Iron deficiency anemia ICD Code: D50.9 - Iron deficiency anemia, unspecified (3) CHF (congestive heart failure) ICD Code: I50.9 - CHF (congestive heart failure) Status: Chronic (4) CKD (chronic kidney disease), stage III ICD Code: N18.3 - Chronic kidney disease, stage 3 (moderate) (5) COPD with acute exacerbation ICD Code: J44.1 - Chronic obstructive pulmonary disease with (acute) exacerbation (6) Bacteremia ICD Code: R78.81 - Bacteremia (7) HTN (hypertension) ICD Code: I10 - Essential (primary) hypertension (8) H/O deep venous thrombosis ICD Code: Z86.718 - Personal history of other venous thrombosis and embolism Procedures see below Brief History - From Admission 71-year-old Afro-[place] female presents the emergency department with her family with reports of anemia, and was requested to come here for possible transfusion by her PCP. Patient was recently discharged from the hospital on 27 December after prolonged hospitalization for sepsis and infection of pacemaker/defibrillator which was subsequently removed. Patient currently has a PICC line and receiving IV antibiotics at home. Patient hospital stay was complicated by microcytic anemia requiring 1 unit of RBCs. She was also started on home O2 for hypoxemia at rest and with ambulation. Patient was also treated for hypo-magnesium and hyponatremia as well as CHF while hospitalized and elevated creatinine. Currently she is not complaining of any pain or increased shortness of breath. She is currently on Bumex twice a day at home. Patient has multiple allergies, please see list. CBC/BMP: 01/05/17 0035 01/06/17 0600 Significant Findings Laboratory Tests Test 01/04/17 08:47 01/05/17 00:35 01/05/17 05:50 01/05/17 18:00 Red Blood Count 3.73 MIL/MM3 (4.00-5.30) 3.84 MIL/MM3 (4.00-5.30) Hemoglobin 9.4 GM/DL (11.6-15.3) 9.4 GM/DL (11.6-15.3) Hematocrit 29.5 % (35.0-46.0) 30.3 % (35.0-46.0) Mean Corpuscular Volume 79.0 FL (80.0-100.0) 78.8 FL (80.0-100.0) Mean Corpuscular Hemoglobin 25.1 PG (27.0-34.0) 24.4 PG (27.0-34.0) Mean Corpuscular Hemoglobin Concent 31.8 % (32.0-36.0) 30.9 % (32.0-36.0) Red Cell Distribution Width 29.5 % (11.6-17.2) 29.8 % (11.6-17.2) Prothrombin Time 26.0 SEC (9.8-11.6) 29.3 SEC (9.8-11.6) Blood Urea Nitrogen 33 MG/DL (7-18) 37 MG/DL (7-18) Creatinine 1.43 MG/DL (0.50-1.00) 1.43 MG/DL (0.50-1.00) Random Glucose 121 MG/DL (74-106) 161 MG/DL (74-106) Estimat Glomerular Filtration Rate 44 ML/MIN (>89) 44 ML/MIN (>89) Neutrophils (%) (Auto) 88.1 % (16.0-70.0) Lymphocytes (%) (Auto) 3.4 % (9.0-44.0) Monocytes (%) (Auto) 8.1 % (0.0-8.0) Lymphocytes # (Auto) 0.2 TH/MM3 (1.0-4.8) Target Cells 1+ (NORMAL) Tear Drop Cells 1+ (NORMAL) Ovalocytes 1+ (NORMAL) Carbon Dioxide Level 34.5 MEQ/L (21.0-32.0) Anion Gap 3 MEQ/L (5-15) Troponin I LESS THAN 0.02 NG/ML Iron Level 341 MCG/DL (50-170) Percent Iron Saturation 82.8 % (20-50) Test 01/06/17 06:00 Prothrombin Time 33.9 SEC (9.8-11.6) Blood Urea Nitrogen 34 MG/DL (7-18) Creatinine 1.32 MG/DL (0.50-1.00) Carbon Dioxide Level 35.8 MEQ/L (21.0-32.0) Anion Gap 3 MEQ/L (5-15) Estimat Glomerular Filtration Rate 48 ML/MIN (>89) Imaging Last Impressions Chest CT 01/02/17 0000 Signed Impressions: Service Date/Time: December 14:24 - CONCLUSION: 1. Bilateral pleural effusions right greater than left. 2. Mild consolidation in the left lower lobe. 3. Marked cardiomegaly. 4. Anasarca. Sergio Haro MD Abdomen/Pelvis CT 01/02/17 0000 Signed Impressions: Service Date/Time: Tuesday, January 03, 2017 11:59 - CONCLUSION: 1. Marked cardiomegaly with progressive diffuse anasarca, small bilateral pleural effusions and small amount of ascites. Findings are likely cardiogenic. 2. Mild hepatomegaly which may reflect congestive hepatopathy. 3. No radiopaque renal calculi or obstructive uropathy. Improved diffuse bladder wall thickening in comparison to prior exam. 4. Remainder of the exam is unchanged. Tommie Polk MD Chest X-Ray 12/31/161958 Signed Impressions: Service Date/Time: Saturday, December 31, 2016 20:07 - CONCLUSION: 1. Cardiomegaly 2. Left lung increased density related to some degree of effusion and consolidation/atelectasis. Gregory Perry MD PE at Discharge GENERAL: Well-nourished, well-developed patient female patient, sitting up on side of bed in nad. On supplemental O2. SKIN: Warm and dry. No rash. HEENT: Normocephalic. No scleral icterus. No injection or drainage. Supple, trachea midline. No JVD or lymphadenopathy. CARDIOVASCULAR: Regular rate and rhythm without murmurs, gallops, or rubs. RESPIRATORY: CTA. Breath sounds equal bilaterally. No accessory muscle use. GASTROINTESTINAL: Abdomen soft, non-tender, nondistended. BS x 4 q. MUSCULOSKELETAL: No cyanosis, or edema. BACK: Nontender without obvious deformity. No CVA tenderness. Pt update on day of discharge Follow up shortness of breath. Patient seen and examined. Sitting up on side of bed comfortably. Denies any new acute complaints overnight. Denies any chest pain, cough, shortness of breath, n/v/d or dysuria. Tolerating PO intake. States she is ready to go home. Hospital Course This is a 71-year-old female with history of chronic kidney disease, anemia and COPD presenting with shortness of breath. echocardiogram obtained on 12/12/16. Congestive heart failure exacerbation showing a normal left ventricular systolic function EF of 60%. CT scan and chest x-ray consistent with pleural effusion and heart failure, abdominal CT scan also showed anasarca. Creatinine improved 1.32. Bumex IV was given while hospitalized. COPD with acute exacerbation given prednisone taper, given Levaquin and oxygen support. Also was on Ancef through hospitalization. Provided symptomatic anemia and iron deficiency anemia status post transfusion of 1 unit of packed blood cells. Stool Hemoccult negative. GI consulted Conservative management for now, no EGD or colonoscopy for now, for colonoscopy as outpatient. Hematology consulted by GI for iron infusion. Dr. Love saw patient and ordered IV iron supplementation and to follow up in office at discharge. LifeVest shock was continued whil hospitalized and had given patient a shock. Dr. Mcclelland saw patient and ordered for LifeVest interrogation. Spoke to Adi who works with [employer] who said she was shocked inappropriately. Recommendations to follow up with cardiology in office. Hypertension controlled while hospitalized. H/O deep venous thrombosis continued Coumadin while hospitalized. INR improving 2.9. Pt Condition on Discharge: Stable Discharge Disposition: Discharge Home Discharge Time: > 30 minutes Discharge Instructions DIET: Follow Instructions for: Heart Healthy Diet Speech Therapy-Diet Recommends: Regular Activities you can perform: Regular-No Restrictions Follow up Referrals: Cardiology - 2-3 Days PCP Follow-up - 1 Week New Orders: PT/INR - Daily New Medications: Prednisone (Prednisone) 10 Mg Tab 10 MG PO DAILY for copd for 4 Days, #4 TAB 0 Refills Continued Medications: Amiodarone (Amiodarone) 200 Mg Tab 200 MG PO DAILY for Regulate Heart Beat, TAB 0 Refills Amlodipine (Amlodipine) 5 Mg Tab 5 MG PO DAILY for Blood Pressure Management, TAB 0 Refills Bumetanide (Bumetanide) 2 Mg Tab 2 MG PO DAILY for Shortness of Breath, #30 TAB 0 Refills Enalapril (Enalapril) 10 Mg Tab 10 MG PO BID, #60 TAB 0 Refills Epinephrine Inj (Epinephrine Inj) 1 Mg/Ml (1 Ml) Inj 0.3 MG IV PUSH ONCE PRN for ALLERGIC REACTION, #1 VIAL Ferrous Sulfate (Ferrous Sulfate) 325 Mg (65 Mg Iron) Tablet 325 MG PO BID for Nutritional Supplement, #60 TAB 0 Refills Hydrocodone-Acetaminophen (Kennard) 5-325 mg Tab 1 TAB PO BID PRN for PAIN, TAB 0 Refills Magnesium (Magnesium) 200 Mg Tab 400 MG PO DAILY for low magnesium, #10 TAB Metoprolol Succinate ER 24 HR (Metoprolol Succinate ER 24 HR) 50 Mg Tab 50 MG PO DAILY, TAB 0 Refills Potassium Chloride ER (K-Tab) 10 Meq Tab 10 MEQ PO BID for Electrolyte Replacement, #62 TAB 0 Refills Warfarin (Coumadin) 3 Mg Tab 3 MG PO DAILY@1600 for Blood Clot Prevention, #30 TAB Discontinued Medications: Cefazolin Inj (Cefazolin Inj) 2 Gm/50 Ml Bagp 2 GM IV Q8H for Infection for 35 Days, BAG 0 Refills Rachelle Garner Jan 06, 2017 12:57
[2017-01-06] MEDS ORDERED: PRED10 PO (13:02)
--- NOTE | 2017-01-06 14:00 | HHI.FF ---
Face to Face Verification Diagnosis: (1) COPD with acute exacerbation (2) CKD (chronic kidney disease), stage III (3) Acute on chronic systolic (congestive) heart failure Physical Therapy Order: Evaluate and Treat Home Health Nursing Order: Medical education CHF education Oxygen administration education Nursing assessment with vital signs IV medication administration I have seen patient Facundo Dailey on 01/06/17. My clinical findings support the need for the requested home health care services because: Ltd mobility - disease progression Patient has SOB I certify that my clinical findings support that this patient is homebound because: Unsteady gait/balance Miguelina Russo MD Jan 06, 2017 14:00
--- NOTE | 2017-01-06 14:02 | HHI.FF ---
Face to Face Verification Diagnosis: (1) DVT (deep venous thrombosis) Home Health Nursing Instructions: PT/INR daily I have seen patient Facundo Dailey on 01/06/17. My clinical findings support the need for the requested home health care services because: Patient has SOB I certify that my clinical findings support that this patient is homebound because: Unsteady gait/balance Miguelina Russo MD Jan 06, 2017 14:02
[2017-01-07] MEDS ORDERED: LEVOFLOXACIN 750 MG TAB PO SCH (09:00)
== END 2017-01-06 18:36 | disposition home health service (06) | DRG 191 ==
LOC: NEPE 18:50 → NEDA 21:19 → NEPHCDU 22:12 → OBSVTOIN 01-01 01:17 → N07B 01-04 20:00
PROVIDERS: ADMIT Hospitalist; ATTEND Hospitalist
PROC: 30233N1 Transfusion of Nonautologous Red Blood Cells into Peripheral Vein, Percutaneous Approach (ICD-10-PCS; principal; 2016-12-31)
DX: J44.1 Chronic obstructive pulmonary disease with (acute) exacerbation (principal); R18.8 Other ascites; E11.22 Type 2 diabetes mellitus with diabetic chronic kidney disease; I13.0 Hypertensive heart and chronic kidney disease with heart failure and stage 1 through stage 4 chronic kidney disease, or unspecified chronic kidney disease; I50.32 Chronic diastolic (congestive) heart failure; N18.3 Chronic kidney disease, stage 3 (moderate); E83.41 Hypermagnesemia; D50.9 Iron deficiency anemia, unspecified; K76.1 Chronic passive congestion of liver; D63.1 Anemia in chronic kidney disease; I48.91 Unspecified atrial fibrillation; Z79.01 Long term (current) use of anticoagulants; Z99.81 Dependence on supplemental oxygen; I25.5 Ischemic cardiomyopathy; I25.10 Atherosclerotic heart disease of native coronary artery without angina pectoris; Z95.810 Presence of automatic (implantable) cardiac defibrillator; E83.42 Hypomagnesemia; Z87.891 Personal history of nicotine dependence; Z86.718 Personal history of other venous thrombosis and embolism; Z95.5 Presence of coronary angioplasty implant and graft
CPT/HCPCS: 36430; 71010; 71250; 74176; 80048; 80053; 82272; 82550; 82668; 82728; 83540; 83550; 83605; 83735; 83880; 84100; 84484; 85025; 85027; 85610; 85730; 86850; 86900; 86901; 86920; 93005; 94620; 94640; 94664; 96361; 96374; 96375; G0378; J0690; J1200; J1756; J2930; J3475; J7050; J7512; P9016; Q9963

== ENCOUNTER 2017-02-03 15:38 | Inpatient (IN) | payer OTHER, MEDICARE ==
[~2017-02-03] VITALS: Ht 152.4 cm; Wt 55.2 kg
[~2017-02-03 15:38] MED LIST changes: -CEFA2SOL IV; -EPIN1INJ21 SQ; +FERR325T18 PO; -FERR325T8 PO; -ISOS30TA3 PO; +METO1TAB9 PO; -METO50TA11 PO; +PRED10 PO; -SOLU250I IV PUSH; -TYLETAB34 PO
[2017-02-03 15:40] VITALS: BP 182/85; PULSE 89; RESP 14; TEMP 97.8; O2SAT 97
--- NOTE | 2017-02-03 16:15 | RADRPT ---
EXAM DATE/TIME: 02/03/2017 16:05 [facility] COMPARISON: CHEST SINGLE AP, December 31, 2016, 20:07. INDICATIONS : Shortness of breath, unexplained weight gain in the last month. MEDICAL HISTORY : Cardiovascular disease. SURGICAL HISTORY : Pacemaker placement and removal. ENCOUNTER: Initial ACUITY: 2 weeks PAIN SCORE: 0/10 LOCATION: Bilateral chest FINDINGS: A single view of the chest demonstrates marked but stable cardiomegaly. Right lung is clear. Obscurat ion of the left hemidiaphragm is concerning for left basilar consolidation/effusion. Right upper ext remity PICC line with the tip projecting over the central venous system. Osseous structures are gross ly intact. CONCLUSION: 1. Marked cardiomegaly. 2. Left basilar consolidation/effusion. This actually appears slightly improved when compared to prio r. 3. Right upper extremity PICC line with the tip projecting over the central venous system. Mt Alvarez MD on February 03, 2017 at 16:11 Board Certified Radiologist. This report was verified electronically.
[2017-02-03] MEDS ORDERED: SODIUM CHLORIDE 0.9% FLUSH 10 ML FLUSH IVF PRN (17:15)
--- NOTE | 2017-02-03 18:08 | RADRPT ---
EXAM DATE/TIME: 02/03/2017 17:35 [facility] COMPARISON: CT ABDOMEN & PELVIS W/O CONTRAST, January 03, 2017, 11:59. INDICATIONS : Abdominal distension. ORAL CONTRAST: No oral contrast ingested. RADIATION DOSE: 12.49 CTDIvol (mGy) MEDICAL HISTORY : Cardiovascular disease. Hypertension. SURGICAL HISTORY : Hysterectomy. ENCOUNTER: Initial ACUITY: 1 day PAIN SCALE: 4/10 LOCATION: Bilateral abdomen TECHNIQUE: Volumetric scanning of the abdomen and pelvis was performed. Using automated exposure control and ad justment of the mA and/or kV according to patient size, radiation dose was kept as low as reasonably achievable to obtain optimal diagnostic quality images. DICOM format image data is available electro nically for review and comparison. FINDINGS: LOWER LUNGS: Small bilateral pleural effusions seen previously actually show interval improvement. There are still some atelectatic changes in the left base. Heart size remains prominent. LIVER: Somewhat heterogeneous density which may represent passive congestion. The hepatic IVC is markedly en larged characteristic of right heart insufficiency. There is no dilation of the biliary tree. No ca lcified gallstones. Gallbladder is decompressed. SPLEEN: Normal size without lesion. PANCREAS: Within normal limits. KIDNEYS: Normal in size and shape. There is no mass, stone, or hydronephrosis. ADRENAL GLANDS: Within normal limits. VASCULAR: There is no aortic aneurysm. Right iliac stent. BOWEL/MESENTERY: The stomach, small bowel, and colon demonstrate no acute abnormality. Small amount of intraperitoneal ascites. Diffuse anasarca in the mesenteric leaves. ABDOMINAL WALL: Extensive but stable anasarca in the soft tissues about the abdomen, flank and upper pelvis. RETROPERITONEUM: There is no lymphadenopathy. BLADDER: No wall thickening or mass. REPRODUCTIVE: Within normal limits. INGUINAL: There is no lymphadenopathy or hernia. MUSCULOSKELETAL: Within normal limits for patient age. CONCLUSION: 1. CT findings characteristic of right heart insufficiency with diffuse but stable anasarca in the vi sible soft tissues and leaves of the mesentery as well as a small amount of ascites. Intrahepatic IVC is markedly dilated. 2. Previously identified bilateral pleural effusions are significantly improved with only a small antonette unt of fluid on the left. There is some persistent atelectasis in the left base. 3. Heart size remains prominent. 4. Otherwise stable. Mt Alvarez MD on February 03, 2017 at 18:00 Board Certified Radiologist. This report was verified electronically.
--- NOTE | 2017-02-03 18:11 | PD ---
HPI Chief Complaint: Respiratory Symptoms Time Seen by Provider: 17:10 Travel History International Travel<30 days: No Contact w/Intl Traveler<30days: No Traveled to known affect area: No History of Present Illness HPI Patient is a 71-year-old female presenting to the emergency department for evaluation of shortness of breath, weight gain, swelling. Patient states that she was evaluated by Dr. Feliciano today and there was a reported 50 pound weight gain noted. This weekend occurred over the last month. Patient reports increased shortness of breath with exertion, abdominal distention, increased swelling in her lower extremities. She also reports left breast enlargement. She states this was due to her pacemaker site being infected however the swelling has gotten worse over the last few days. Patient is currently wearing a LifeVest. Pacemaker was removed approximately 2 weeks ago. Patient states the pain in her breasts is an 8 out of 10 and states it sore. There are no alleviating factors or exacerbating factors. Patient has a history of hypertension, CHF, A. fib, type 2 diabetes. PFSH Past Medical History Hx Anticoagulant Therapy: Yes (Coumadin) Arthritis: No Asthma: Yes Autoimmune Disease: No Blood Disorders: No Anxiety: No Depression: No Heart Rhythm Problems: No Cancer: No Cardiac Catheterization: Yes Cardiovascular Problems: Yes High Cholesterol: No Chemotherapy: No Chest Pain: No Congestive Heart Failure: Yes COPD: Yes Cerebrovascular Accident: No Diabetes: Yes Patient Takes Glucophage: No Diminished Hearing: No Gastrointestinal Disorders: No GERD: No Glaucoma: No Genitourinary: No Headaches: No Hepatitis: No Hiatal Hernia: No Hypertension: Yes Immune Disorder: No Implanted Vascular Access Dvce: Yes (PICC line right arm) Kidney Stones: No Musculoskeletal: No Neurologic: No Psychiatric: No Reproductive: No Respiratory: Yes Integumentary: Yes (RIGHT BREAST LUMPECTOMY) Immunizations Current: Yes Migraines: No Myocardial Infarction: No Radiation Therapy: No Renal Failure: No Seizures: No Sickle Cell Disease: No Sleep Apnea: No Thyroid Disease: No Ulcer: No Menopausal: Yes Past Surgical History Abdominal Surgery: Yes (APPENDECTOMY) AICD: Yes Appendectomy: Yes Arteriovenous Shunt: No Cardiac Surgery: Yes (4 CARDIAC STENTS) Cholecystectomy: No Coronary Stent: Yes (x3) Ear Surgery: No Endocrine Surgery: No Eye Surgery: No Genitourinary Surgery: No Gynecologic Surgery: Yes (HYSTERECTOMY) Hysterectomy: Yes Insulin Pump: No Joint Replacement: No Oral Surgery: No Pacemaker: No Thoracic Surgery: No Other Surgery: Yes (defribillator removed,lumpectomny r breast) Social History Alcohol Use: Yes ("SOMETIMES") Tobacco Use: No Substance Use: No Allergies-Medications (Allergen,Severity, Reaction): Coded Allergies: penicillin G (Unverified Allergy, Severe, rash, 12/31/16) benazepril (Unverified Allergy, Mild, 12/31/16) HUMBLE inhibitor angioedema, swelling of the face lips and anterior tongue captopril (Unverified Allergy, Mild, 12/31/16) HUMBLE inhibitor angioedema, swelling of the face lips and anterior tongue enalaprilat (Unverified Allergy, Mild, 12/31/16) HUMBLE inhibitor angioedema, swelling of the face lips and anterior tongue fosinopril (Unverified Allergy, Mild, 12/31/16) HUMBLE inhibitor angioedema, swelling of the face lips and anterior tongue lisinopril (Unverified Allergy, Mild, 12/31/16) HUMBLE inhibitor angioedema, swelling of the face lips and anterior tongue quinapril (Unverified Allergy, Mild, 12/31/16) HUMBLE inhibitor angioedema, swelling of the face lips and anterior tongue Uncoded Allergies: NON COMPATIBLE PACEMAKER (Adverse Reaction, Severe, MRI PRECAUTION / PACEMAKER, 11/03/14) MRI PRECAUTION. PACEMAKER Reported Meds & Prescriptions Reported Meds & Active Scripts Active Ferrous Sulfate 325 Mg (65 Mg Iron) Tablet 325 Mg PO BID Bumetanide 2 Mg Tab 2 Mg PO DAILY K-Tab (Potassium Chloride) 10 Meq Tab 10 Meq PO BID Epinephrine Inj 1 Mg/Ml (1 Ml) Inj 0.3 Mg IV PUSH ONCE PRN Oxygen (O2) (Miscellaneous Medication) Inha Liter JENNIFER.CANULA CONTINUOUS Oxygen Concentrator Portable Gaseous 2 L/min via Nasal Canula Continuous For 99 months Defibrillator Jacket (Device) 1 Ea Device Ea EXTERNAL ONCE Energy = 150 Joules; VT Threshold = 150 BPM; VF Threshold = 200 BPM Use up to 90 days only Reported Lantus Inj (Insulin Glargine) 1,000 Unit/10 Ml Vial 27 Units SQ HS PRN Warfarin 4 Mg Tab 4 Mg PO DAILY [place] (Hydrocodone-Acetaminophen) 5-325 mg Tab 1 Tab PO BID PRN Enalapril (Enalapril Maleate) 10 Mg Tab 10 Mg PO BID Metoprolol Succinate ER 24 HR (Metoprolol Succinate) 50 Mg Tab 50 Mg PO DAILY Amlodipine (Amlodipine Besylate) 5 Mg Tab 5 Mg PO DAILY Amiodarone (Amiodarone HCl) 200 Mg Tab 200 Mg PO DAILY Review of Systems Except as stated in HPI: all other systems reviewed are Neg General / Constitutional: No: Fever, Chills HENT: No: Headaches Cardiovascular: Positive: Dyspnea on exertion, Edema, No: Chest Pain or Discomfort Respiratory: Positive: Shortness of Breath Gastrointestinal: Positive: Other (abdominal distention), No: Nausea, Vomiting Genitourinary: No: Dysuria Musculoskeletal: Positive: Pain (left breast) Physical Exam Narrative GENERAL: Overweight, well-developed, alert female. Resting comfortably in no acute distress. Family at bedside. SKIN: Warm and dry. Left breast is markedly edematous, firm to the touch, tender to palpation. HEAD: Atraumatic. Normocephalic. EYES: Pupils equal and round. No scleral icterus. No injection or drainage. ENT: No nasal bleeding or discharge. Mucous membranes pink and moist. NECK: Trachea midline. No JVD. CARDIOVASCULAR: Irregularly irregular RESPIRATORY: No accessory muscle use. Diminished in bases GASTROINTESTINAL: Abdomen firm, distended. Hepatic and splenic margins not palpable. Positive bowel sounds MUSCULOSKELETAL: Extremities without clubbing, cyanosis. No obvious deformities. Edema to bilateral lower extremities, greater in her thighs than lower legs. Pedal pulses by Doppler NEUROLOGICAL: Awake and alert. No obvious cranial nerve deficits. Motor grossly within normal limits. Five out of 5 muscle strength in the arms and legs. Normal speech. PSYCHIATRIC: Appropriate mood and affect; insight and judgment normal. Data Data Last Documented VS Vital Signs Date Time Temp Pulse Resp B/P (MAP) Pulse Ox O2 Delivery O2 Flow Rate FiO2 02/03/17 19:51 90 50 99 Nasal Cannula 3.00 02/03/17 19:49 137/79 (98) 02/03/17 15:40 97.8 Orders Orders Complete Blood Count With Diff (02/03/17 15:47) Comprehensive Metabolic Panel (02/03/17 15:47) B-Type Natriuretic Peptide (02/03/17 15:47) Act Partial Throm Time (Ptt) (02/03/17 15:47) Prothrombin Time / Inr (Pt) (02/03/17 15:47) Magnesium (Mg) (02/03/17 15:47) Ckmb (Isoenzyme) Profile (02/03/17 15:47) Troponin I (02/03/17 15:47) Urinalysis - C+S If Indicated (02/03/17 15:47) Electrocardiogram (02/03/17 15:47) Chest, Single Ap (02/03/17 15:47) Iv Access Insert/Monitor (02/03/17 17:10) Ecg Monitoring (02/03/17 17:10) Oximetry (02/03/17 17:10) Oxygen Administration (02/03/17 17:10) Sodium Chloride 0.9% Flush (Ns Flush) (02/03/17 17:15) Us Breast Unilateral (02/03/17 ) Ct Abd/Pel W/O Iv Contrast (02/03/17 ) CKMB (02/03/17 17:55) CKMB% (02/03/17 17:55) Furosemide Inj (Lasix Inj) (02/03/17 21:00) Urinary Catheter Insert/Apply (02/03/17 21:11) Admit Order (Ed Use Only) (02/03/17 21:18) Labs Laboratory Tests Test 02/03/17 17:55 White Blood Count 6.2 TH/MM3 Red Blood Count 3.56 MIL/MM3 Hemoglobin 9.7 GM/DL Hematocrit 30.5 % Mean Corpuscular Volume 85.8 FL Mean Corpuscular Hemoglobin 27.3 PG Mean Corpuscular Hemoglobin Concent 31.9 % Red Cell Distribution Width 25.3 % Platelet Count 285 TH/MM3 Mean Platelet Volume 6.9 FL Neutrophils (%) (Auto) 71.4 % Lymphocytes (%) (Auto) 11.6 % Monocytes (%) (Auto) 14.2 % Eosinophils (%) (Auto) 1.9 % Basophils (%) (Auto) 0.9 % Neutrophils # (Auto) 4.4 TH/MM3 Lymphocytes # (Auto) 0.7 TH/MM3 Monocytes # (Auto) 0.9 TH/MM3 Eosinophils # (Auto) 0.1 TH/MM3 Basophils # (Auto) 0.1 TH/MM3 CBC Comment AUTO DIFF Differential Comment AUTO DIFF CONFIRMED Platelet Estimate NORMAL Platelet Morphology Comment NORMAL Target Cells 1+ Tear Drop Cells 1+ Ovalocytes 1+ Keratocytes OCC Prothrombin Time 13.6 SEC Prothromb Time International Ratio 1.2 RATIO Activated Partial Thromboplast Time 34.2 SEC Blood Urea Nitrogen 10 MG/DL Creatinine 0.99 MG/DL Random Glucose 86 MG/DL Total Protein 8.0 GM/DL Albumin 2.8 GM/DL Calcium Level 8.7 MG/DL Magnesium Level 1.7 MG/DL Alkaline Phosphatase 127 U/L Aspartate Amino Transf (AST/SGOT) 22 U/L Alanine Aminotransferase (ALT/SGPT) 9 U/L Total Bilirubin 1.2 MG/DL Sodium Level 140 MEQ/L Potassium Level 3.7 MEQ/L Chloride Level 106 MEQ/L Carbon Dioxide Level 25.5 MEQ/L Anion Gap 9 MEQ/L Estimat Glomerular Filtration Rate 67 ML/MIN Total Creatine Kinase 106 U/L Creatine Kinase MB 1.4 NG/ML Troponin I 0.02 NG/ML B-Type Natriuretic Peptide 2847 PG/ML MDM Medical Decision Making Medical Screen Exam Complete: Yes Emergency Medical Condition: Yes Medical Record Reviewed: Yes Interpretation(s) Last Impressions Chest X-Ray 02/03/17 1547 Signed Impressions: Service Date/Time: Friday, February 03, 2017 16:05 - CONCLUSION: 1. Marked cardiomegaly. 2. Left basilar consolidation/effusion. This actually appears slightly improved when compared to prior. 3. Right upper extremity PICC line with the tip projecting over the central venous system. Mt Alvarez MD Breast Ultrasound 02/03/17 0000 Signed Impressions: Service Date/Time: Friday, February 03, 2017 18:49 - CONCLUSION: Complex cystic lesion measuring up to 11.8 cm centered at the 12:00 position left breast. Given the clinical history of recent procedure in this area this could represent a noninfected or infected fluid collection. Given the complex internal architecture, percutaneous drainage will likely not be successful. Once the patient's condition permits, consider outpatient diagnostic mammogram and ultrasound followup. Gregory Bob MD ADDENDUM: Another consideration given the prior CT appearance and current imaging findings is an old hematoma. Gregory Bob MD Abdomen/Pelvis CT 02/03/17 0000 Signed Impressions: Service Date/Time: Friday, February 03, 2017 17:35 - CONCLUSION: 1. CT findings characteristic of right heart insufficiency with diffuse but stable anasarca in the visible soft tissues and leaves of the mesentery as well as a small amount of ascites. Intrahepatic IVC is markedly dilated. 2. Previously identified bilateral pleural effusions are significantly improved with only a small amount of fluid on the left. There is some persistent atelectasis in the left base. 3. Heart size remains prominent. 4. Otherwise stable. Mt Alvarez MD Laboratory Tests Test 02/03/17 17:55 White Blood Count 6.2 TH/MM3 Red Blood Count 3.56 MIL/MM3 Hemoglobin 9.7 GM/DL Hematocrit 30.5 % Mean Corpuscular Volume 85.8 FL Mean Corpuscular Hemoglobin 27.3 PG Mean Corpuscular Hemoglobin Concent 31.9 % Red Cell Distribution Width 25.3 % Platelet Count 285 TH/MM3 Mean Platelet Volume 6.9 FL Neutrophils (%) (Auto) 71.4 % Lymphocytes (%) (Auto) 11.6 % Monocytes (%) (Auto) 14.2 % Eosinophils (%) (Auto) 1.9 % Basophils (%) (Auto) 0.9 % Neutrophils # (Auto) 4.4 TH/MM3 Lymphocytes # (Auto) 0.7 TH/MM3 Monocytes # (Auto) 0.9 TH/MM3 Eosinophils # (Auto) 0.1 TH/MM3 Basophils # (Auto) 0.1 TH/MM3 CBC Comment AUTO DIFF Differential Comment AUTO DIFF CONFIRMED Platelet Estimate NORMAL Platelet Morphology Comment NORMAL Target Cells 1+ Tear Drop Cells 1+ Ovalocytes 1+ Keratocytes OCC Prothrombin Time 13.6 SEC Prothromb Time International Ratio 1.2 RATIO Activated Partial Thromboplast Time 34.2 SEC Blood Urea Nitrogen 10 MG/DL Creatinine 0.99 MG/DL Random Glucose 86 MG/DL Total Protein 8.0 GM/DL Albumin 2.8 GM/DL Calcium Level 8.7 MG/DL Magnesium Level 1.7 MG/DL Alkaline Phosphatase 127 U/L Aspartate Amino Transf (AST/SGOT) 22 U/L Alanine Aminotransferase (ALT/SGPT) 9 U/L Total Bilirubin 1.2 MG/DL Sodium Level 140 MEQ/L Potassium Level 3.7 MEQ/L Chloride Level 106 MEQ/L Carbon Dioxide Level 25.5 MEQ/L Anion Gap 9 MEQ/L Estimat Glomerular Filtration Rate 67 ML/MIN Total Creatine Kinase 106 U/L Creatine Kinase MB 1.4 NG/ML Troponin I 0.02 NG/ML B-Type Natriuretic Peptide 2847 PG/ML Vital Signs Date Time Temp Pulse Resp B/P (MAP) Pulse Ox O2 Delivery O2 Flow Rate FiO2 02/03/17 17:38 Nasal Cannula 3.00 02/03/17 17:33 Nasal Cannula 02/03/17 15:40 97.8 89 14 182/85 (117) 97 Nasal Cannula 3.00 Differential Diagnosis CHF versus sepsis versus cellulitis versus abscess versus metabolic abnormality versus other Narrative Course Patient presented after being evaluated by her chief jailer, she was sent to the emergency department. On arrival patient stated that she has had a 50 pound weight gain in one month, she reported left breast pain and enlargement, shortness of breath with exertion which is increased over her baseline. She also reported abdominal distention. Labs and imaging ordered and pending. Patient's vital signs are stable, IV access established. Initial EKG shows sinus rhythm with occasional PVCs with a rate of 83 CBC mild anemia, this is stable and actually improved when compared to prior. Chemistry reviewed, no acute abnormalities identified BNP 2847 Coags were reviewed, INR is 1.2. Patient states that she continues to take Coumadin as scheduled. Ultrasound of the breast which was read by the radiologist shows a complex cystic lesion measuring up to 11.8 cm centered at the 12 o'clock position of the left breast. This could represent a noninfected or infected fluid collection. It also states that given the complex internal architecture, percutaneous drainage will likely not be successful. It also stated that another consideration given prior CT appearance and current imaging findings an old hematoma. CT the abdomen and pelvis was also read by radiologist shows findings characteristic of right heart insufficiency with diffuse was stable anasarca in the soft tissues and leaves the mesentery as well as small amount of ascites. Intrahepatic IVC is markedly dilated. Previous identified bilateral pleural effusions are significantly improved with only a small amount of fluid on the left. Persistent atelectasis left base, prominent heart size. Otherwise stable CT. Lasix 40 mg IV 1 dose ordered. Upon review of medical records patient was to receive IV antibiotics through 01/29/17. She continues to have a PICC line in place. [facility] paged for admission. Dr. Mckeon accepted admission. Admit orders placed. Diagnosis Primary Impression: CHF (congestive heart failure) Qualified Codes: I50.33 - Acute on chronic diastolic (congestive) heart failure Additional Impressions: Anasarca Bilateral lower extremity edema Breast edema Admitting Information Admitting Physician Requests: Admit Condition: Stable Radha Becker Feb 03, 2017 18:11
[2017-02-03] MEDS ORDERED: WARF-20 PO (18:18)
[2017-02-03] MEDS ORDERED: LANTUS2P SQ (18:18)
[2017-02-03 18:29] LABS: AUTOMATED NEUTROPHIL # 4.4 TH/MM3 (1.8-7.7); BASOPHIL # 0.1 TH/MM3 (0-0.2); BASOPHIL % 0.9 % (0.0-2.0); EOSINOPHIL # 0.1 TH/MM3 (0-0.4); EOSINOPHIL % 1.9 % (0.0-4.0); HEMATOCRIT 30.5 % (35.0-46.0); LYMPH % 11.6 % (9.0-44.0); LYMPHOCYTE # 0.7 TH/MM3 (1.0-4.8); MEAN CELL VOLUME 85.8 FL (80.0-100.0); MEAN CORPUSCULAR HEMOGLOBIN 27.3 PG (27.0-34.0); MEAN CORPUSCULAR HGB CONC 31.9 % (32.0-36.0); MONO % 14.2 % (0.0-8.0); NEUT % 71.4 % (16.0-70.0); PLATELET COUNT 285 TH/MM3 (150-450); RED BLOOD COUNT 3.56 MIL/MM3 (4.00-5.30); RED CELL DISTRIBUTION WIDTH 25.3 % (11.6-17.2); WHITE BLOOD COUNT 6.2 TH/MM3 (4.0-11.0)
[2017-02-03 18:31] LABS: HEMO FLAGS AUTO DIFF
[2017-02-03 18:51] LABS: ANION GAP 9 MEQ/L (5-15); AST (GOT) 22 U/L (15-37); BICARBONATE 25.5 MEQ/L (21.0-32.0); BLOOD UREA NITROGEN 10 MG/DL (7-18); CHLORIDE 106 MEQ/L (98-107); GLOMERULAR FILTRATION RATE 67 ML/MIN (>89); MAGNESIUM 1.7 MG/DL (1.5-2.5); POTASSIUM 3.7 MEQ/L (3.5-5.1); SODIUM (NA) 140 MEQ/L (136-145)
[2017-02-03 18:55] LABS: ALKALINE PHOSPHATASE 127 U/L (45-117); ALT (GPT) 9 U/L (10-53); CREATINE KINASE 106 U/L (26-192); TOTAL BILIRUBIN ADULT 1.2 MG/DL (0.2-1.0)
[2017-02-03 18:56] LABS: APTT (PATIENT) 34.2 SEC (24.3-30.1); INTERNATIONAL NORMALIZED RATIO 1.2 RATIO; PROTHROMBIN TIME - PATIENT 13.6 SEC (9.8-11.6)
[2017-02-03 19:08] LABS: CKMB 1.4 NG/ML (0.5-3.6)
--- NOTE | 2017-02-03 19:14 | RADRPT ---
EXAM DATE/TIME: 02/03/2017 18:49 This report includes an Addendum and supersedes previous reports for this exam. [facility] COMPARISON: CT ABDOMEN & PELVIS W/O CONTRAST, January 03, 2017, 11:59. CT THORAX W/O CONTRAST, January 02, 2017, 14:24. US BREAST LEFT, December 10, 2016, 13:43. INDICATIONS : Abscess. MEDICAL HISTORY : Chronic obstructive pulmonary disease. Congestive heart failure. Diabetes. SURGICAL HISTORY : Hysterectomy. Appendectomy. Coronary stents. Pacemaker. Cardiac catheterization. Lumpectomy, right breast. ENCOUNTER: Subsequent ACUITY: 1 month PAIN SCORE: 8/10 LOCATION: Left breast. FINDINGS: Patient is reportedly post recent cardiac pacing device removal. Within the left breast centered arou nd the 12: 00 position, 4 cm from the nipple there is a complex cystic lesion measuring 11.0 x 11.8 x 9.1 cm. Th e hypoechoic areas demonstrates no internal color flow. In retrospect a heterogeneous density structu re of similar size was present on 01/02/[address] CONCLUSION: Complex cystic lesion measuring up to 11.8 cm centered at the 12:00 position left breast. Given the clinical history of recent procedure in this area this could represent a noninfected or inf ected fluid collection. Given the complex internal architecture, percutaneous drainage will likely no t be successful. Once the patient's condition permits, consider outpatient diagnostic mammogram and u ltrasound followup. Gregory Bob MD on February 03, 2017 at 19:05 Board Certified Radiologist. This report was verified electronically. ADDENDUM: Another consideration given the prior CT appearance and current imaging findings is an old hematoma. Gregory Bob MD on February 03, 2017 at 19:22 Board Certified Radiologist. This report was verified electronically.
[2017-02-03 19:27] LABS: PLATELET ESTIMATE SMEAR NORMAL (NORMAL); PLATELET MORPHOLOGY NORMAL (NORMAL); SCAN/DIFF AUTO DIFF CONFIRMED
[2017-02-03 19:30] LABS: KERATOCYTES OCC (NORMAL); OVALOCYTES 1+ (NORMAL)
[2017-02-03 19:31] LABS: TARGET CELLS 1+ (NORMAL); TEARDROP RBCS 1+ (NORMAL)
[2017-02-03 19:49] VITALS: BP 137/79; PULSE 91; RESP 14; O2SAT 98
[2017-02-03] MEDS ORDERED: FUROSEMIDE 40 MG/4 ML VIAL IV PUSH ONE (21:00)
[2017-02-03] MEDS ORDERED: NALOXONE HCL 0.4 MG/ML AMP IV PUSH PRN (21:30)
[2017-02-03 21:50] LABS: BACTERIA, URINE OCC /hpf; BLOOD, URINE NEG (NEG); COMMENT (UR) CATH-CULTURE IND; CULTURE IF INDICATED CATH CULTURE IND; GLUCOSE,URINE NEG (NEG); KETONE, URINE NEG (NEG); MUCUS URINE FEW /lpf (OCC); NITRITE,URINE NEG (NEG); URINE COLOR LIGHT-YELLOW (YELLW/STRAW)
[2017-02-04] VITALS (8 sets, daily range): BP systolic 103–149; BP diastolic 62–82; PULSE 79–94; RESP 16–18; TEMP 95.7–97; O2SAT 93–100
[2017-02-04] MEDS: ENOXAPARIN SODIUM 40 MG/0.4 ML SYRINGE SQ SCH ×2 (00:45→21:46)
[2017-02-04] MEDS ORDERED: GLUCAGON 1 MG/ML VIAL OTHER PRN (04:30)
[2017-02-04] MEDS ORDERED: DEXTROSE 50% IN WATER 50 ML VIAL(D50) IV PUSH PRN (04:30)
[2017-02-04] MEDS ORDERED: RESP: ALBUTEROL 2.5 MG/IPRATROPIUM 0.5 MG NEB (PRN) NEB (04:45)
[2017-02-04] MEDS ORDERED: INSULIN DETEMIR 100 UNITS/ML VIAL SQ PRN (04:45)
--- NOTE | 2017-02-04 04:46 | HHI.HP ---
[facility] Primary Care Physician Emily De La Cruz MD Admission Diagnosis CHF Diagnoses: Travel History International Travel<30 Days: No Contact w/Intl Traveler <30 Da: No Traveled to Known Affected Are: No History of Present Illness 71-year-old female with past medical history significant for CHF, A. fib anticoagulated on Coumadin, COPD on home oxygen, hypertension and diabetes mellitus presents to the emergency department after being seen by Dr. Feliciano. Patient reports a 50 pound weight gain with bilateral lower extremity edema and significant stomach swelling. She also reports shortness of breath. The patient's main complaint is a red, swollen left breast where her pacemaker was recently removed. Patient was admitted in November with severe sepsis related to an AICD infection with endocarditis. She grew MSSA on her blood cultures and was discharged with home infusion of cefazolin that was to be completed on 01/29/17. The patient reports a significant increase in her left breast swelling over the past 2-3 days. She states the area is tender to palpation and painful. She does not have a leukocytosis. BNP is 2847. Chest x-ray shows slightly improved left basilar consolidation/effusion. CT of the abdomen and pelvis showed stable anasarca with a small amount of ascites. The previously identified bilateral pleural effusions were significantly improved with only a small amount of fluid on the left. Breast ultrasound showed a complex cystic lesion measuring up to 11.8 cm in the left breast that could represent a fluid collection or old hematoma. Review of Systems Denies fever or chills Denies blurry vision, otorrhea, rhinorrhea Denies sore throat and cough No chest pain, palpitations, positive shortness of breath No abdominal pain Denies constipation/diarrhea/nausea/vomiting Denies muscle pain/weakness No rashes Past Family Social History Past Medical History htn dm chf afib on coumadin copd on home oxygen Past Surgical History breast surgery ppm placement right breast lumpectomy appendectomy cholecystectomy hysterectomy Reported Medications Reported Meds & Active Scripts Active Ferrous Sulfate 325 Mg (65 Mg Iron) Tablet 325 Mg PO BID Bumetanide 2 Mg Tab 2 Mg PO DAILY K-Tab (Potassium Chloride) 10 Meq Tab 10 Meq PO BID Epinephrine Inj 1 Mg/Ml (1 Ml) Inj 0.3 Mg IV PUSH ONCE PRN Oxygen (O2) (Miscellaneous Medication) Inha Liter JENNIFER.CANULA CONTINUOUS Oxygen Concentrator Portable Gaseous 2 L/min via Nasal Canula Continuous For 99 months Defibrillator Jacket (Device) 1 Ea Device Ea EXTERNAL ONCE Energy = 150 Joules; VT Threshold = 150 BPM; VF Threshold = 200 BPM Use up to 90 days only Reported Lantus Inj (Insulin Glargine) 1,000 Unit/10 Ml Vial 27 Units SQ HS PRN Warfarin 4 Mg Tab 4 Mg PO DAILY [place] (Hydrocodone-Acetaminophen) 5-325 mg Tab 1 Tab PO BID PRN Enalapril (Enalapril Maleate) 10 Mg Tab 10 Mg PO BID Metoprolol Succinate ER 24 HR (Metoprolol Succinate) 50 Mg Tab 50 Mg PO DAILY Amlodipine (Amlodipine Besylate) 5 Mg Tab 5 Mg PO DAILY Amiodarone (Amiodarone HCl) 200 Mg Tab 200 Mg PO DAILY Allergies: Coded Allergies: penicillin G (Unverified Allergy, Severe, rash, 12/31/16) benazepril (Unverified Allergy, Mild, 12/31/16) HUMBLE inhibitor angioedema, swelling of the face lips and anterior tongue captopril (Unverified Allergy, Mild, 12/31/16) HUMBLE inhibitor angioedema, swelling of the face lips and anterior tongue enalaprilat (Unverified Allergy, Mild, 12/31/16) HUMBLE inhibitor angioedema, swelling of the face lips and anterior tongue fosinopril (Unverified Allergy, Mild, 12/31/16) HUMBLE inhibitor angioedema, swelling of the face lips and anterior tongue lisinopril (Unverified Allergy, Mild, 12/31/16) HUMBLE inhibitor angioedema, swelling of the face lips and anterior tongue quinapril (Unverified Allergy, Mild, 12/31/16) HUMBLE inhibitor angioedema, swelling of the face lips and anterior tongue Uncoded Allergies: NON COMPATIBLE PACEMAKER (Adverse Reaction, Severe, MRI PRECAUTION / PACEMAKER, 11/03/14) MRI PRECAUTION. PACEMAKER Family History Mother with cardiac disease. Father with diabetes. Social History Quit smoking approximately 2 months ago, smoked one half pack per day since 1968. Occasional alcohol. Denies marijuana or illicit drugs. Physical Exam Vital Signs Vital Signs Date Time Temp Pulse Resp B/P (MAP) Pulse Ox O2 Delivery O2 Flow Rate FiO2 02/04/17 00:11 96.5 86 17 127/67 (87) 100 02/03/17 22:49 02/03/17 19:51 90 50 99 Nasal Cannula 3.00 02/03/17 19:49 91 14 137/79 (98) 98 Nasal Cannula 3.00 02/03/17 17:38 Nasal Cannula 3.00 02/03/17 17:33 Nasal Cannula 02/03/17 15:40 97.8 89 14 182/85 (117) 97 Nasal Cannula 3.00 Physical Exam GENERAL: female lying in bed SKIN: Erythematous, hard region of the left breast just lateral to the nipple. Area is swollen as compared to the right breast. No areas of fluctuance noted. HEAD: Atraumatic. Normocephalic. No temporal or scalp tenderness. EYES: Pupils equal round and reactive. Extraocular motions intact. No scleral icterus. No injection or drainage. ENT: Nose without bleeding, purulent drainage or septal hematoma. Throat without erythema, tonsillar hypertrophy or exudate. Uvula midline. Airway patent. NECK: Trachea midline. No JVD or lymphadenopathy. Supple, nontender, no meningeal signs. CARDIOVASCULAR: Irregularly irregular without murmurs, gallops, or rubs. RESPIRATORY: Clear to auscultation. Breath sounds equal bilaterally. No wheezes , rales, or rhonchi. GASTROINTESTINAL: Abdomen hard with thickened skin. Nontender to palpation. No peritoneal signs. MUSCULOSKELETAL: Bilateral lower extremity edema extending up to the thighs. NEUROLOGICAL: Awake and alert. Cranial nerves II through XII intact. Motor and sensory grossly within normal limits. Normal speech. Laboratory Laboratory Tests Test 02/03/17 17:55 02/03/17 21:30 White Blood Count 6.2 Red Blood Count 3.56 Hemoglobin 9.7 Hematocrit 30.5 Mean Corpuscular Volume 85.8 Mean Corpuscular Hemoglobin 27.3 Mean Corpuscular Hemoglobin Concent 31.9 Red Cell Distribution Width 25.3 Platelet Count 285 Mean Platelet Volume 6.9 Neutrophils (%) (Auto) 71.4 Lymphocytes (%) (Auto) 11.6 Monocytes (%) (Auto) 14.2 Eosinophils (%) (Auto) 1.9 Basophils (%) (Auto) 0.9 Neutrophils # (Auto) 4.4 Lymphocytes # (Auto) 0.7 Monocytes # (Auto) 0.9 Eosinophils # (Auto) 0.1 Basophils # (Auto) 0.1 CBC Comment AUTO DIFF Differential Comment AUTO DIFF CONFIRMED Platelet Estimate NORMAL Platelet Morphology Comment NORMAL Target Cells 1+ Tear Drop Cells 1+ Ovalocytes 1+ Keratocytes OCC Prothrombin Time 13.6 Prothromb Time International Ratio 1.2 Activated Partial Thromboplast Time 34.2 Blood Urea Nitrogen 10 Creatinine 0.99 Random Glucose 86 Total Protein 8.0 Albumin 2.8 Calcium Level 8.7 Magnesium Level 1.7 Alkaline Phosphatase 127 Aspartate Amino Transf (AST/SGOT) 22 Alanine Aminotransferase (ALT/SGPT) 9 Total Bilirubin 1.2 Sodium Level 140 Potassium Level 3.7 Chloride Level 106 Carbon Dioxide Level 25.5 Anion Gap 9 Estimat Glomerular Filtration Rate 67 Total Creatine Kinase 106 Creatine Kinase MB 1.4 Troponin I 0.02 B-Type Natriuretic Peptide 2847 Urine Color LIGHT-YELLOW Urine Turbidity CLEAR Urine pH 5.0 Urine Specific Delta 1.007 Urine Protein NEG Urine Glucose (UA) NEG Urine Ketones NEG Urine Occult Blood NEG Urine Nitrite NEG Urine Bilirubin NEG Urine Urobilinogen LESS THAN 2.0 Urine Leukocyte Esterase SMALL Urine RBC LESS THAN 1 Urine WBC 1 Urine Bacteria OCC Urine Mucus FEW Microscopic Urinalysis Comment CATH-CULTURE IND Date/Time Source Procedure Growth Status 02/03/17 21:30 Urine Catheterized Urine Urine Culture Pending Received Result Diagram: 02/03/17175402/03/171754 Caprini VTE Risk Assessment Caprini VTE Risk Assessment: Mod/High Risk (score >= 2) Caprini Risk Assessment Model Point Value = 1 Point Value = 2 Point Value = 3 Point Value = 5 Age 41-60 Minor surgery BMI > 25 kg/m2 Swollen legs Varicose veins or History of unexplained or recurrent spontaneous Oral contraceptives or hormone replacement Sepsis (< 1 month) Serious lung disease, including pneumonia (< 1 month) Abnormal pulmonary function Acute myocardial infarction Congestive heart failure (< 1 month) History of inflammatory bowel disease Medical patient at bed rest Age 61-74 Arthroscopic surgery Major open surgery (> 45 min) Laparoscopic surgery (> 45 min) Malignancy Confined to bed (> 72 hours) Immobilizing plaster cast Central venous access Age >= 75 History of VTE Family history of VTE Factor V Leiden Prothrombin [id number] Lupus anticoagulant Anticardiolipin antibodies Elevated serum homocysteine Heparin-induced thrombocytopenia Other congenital or acquired thrombophilia Stroke (< 1 month) Elective arthroplasty Hip, pelvis, or leg fracture Acute spinal cord injury (< 1 month) Prophylaxis Regimen Total Risk Factor Score Risk Level Prophylaxis Regimen 0-1 Low Early ambulation 2 Moderate Order ONE of the following: *Sequential Compression Device (SCD) *Heparin 5000 units SQ BID 3-4 Higher Order ONE of the following medications: *Heparin 5000 units SQ TID *Enoxaparin/Lovenox 40 mg SQ daily (WT < 150 kg, CrCl > 30 mL/min) *Enoxaparin/Lovenox 30 mg SQ daily (WT < 150 kg, CrCl > 10-29 mL/min) *Enoxaparin/Lovenox 30 mg SQ BID (WT < 150 kg, CrCl > 30 mL/min) AND/OR *Sequential Compression Device (SCD) 5 or more Highest Order ONE of the following medications: *Heparin 5000 units SQ TID (Preferred with Epidurals) *Enoxaparin/Lovenox 40 mg SQ daily (WT < 150 kg, CrCl > 30 mL/min) *Enoxaparin/Lovenox 30 mg SQ daily (WT < 150 kg, CrCl > 10-29 mL/min) *Enoxaparin/Lovenox 30 mg SQ BID (WT < 150 kg, CrCl > 30 mL/min) AND *Sequential Compression Device (SCD) Assessment and Plan Assessment and Plan 71-year-old female with past medical history significant for CHF, COPD, A. fib anticoagulated on Coumadin, with recent history of MSSA bacteremia and endocarditis with probable infected AICD recently removed presents with increasing shortness of breath, lower extremity edema and increased pain and swelling of left breast. 1. CHF exacerbation BNP 2847 - was 1797 on 12/31/69 Diuresis with IV Lasix Continue life vest Oxygen when necessary Continue home medications 2. Cellulitis/possible infected fluid collection left breast Patient with erythematous and warm left breast Blood cultures pending Ultrasound of the left breast significant for fluid collection versus hematoma not amenable to percutaneous drainage - concern for infected fluid collection given patient's recent history of bacteremia, endocarditis and infected AICD Clindamycin ID consulted, appreciate recommendations Patient may require general surgery consult for I&D 3. A. fib Anticoagulated on Coumadin Subtherapeutic INR at 1.2, consult pharmacy for Coumadin dosing Continue home medications 4. Insulin-dependent diabetes mellitus Continue home Lantus SSI 5. Hypertension Continue home medications 6. COPD Duo nebs when necessary Continue home oxygen FEN Heart healthy diet Electrolytes: Replete when necessary Anticoagulated with warfarin Case management consult Physician Certification 2 Midnight Certification Type: Admission for Inpatient Services Order for Inpatient Services The services are ordered in accordance with Medicare regulations or non- Medicare payer requirements, as applicable. In the case of services not specified as inpatient-only, they are appropriately provided as inpatient services in accordance with the 2-midnight benchmark. Estimated LOS (days): 2 2 days is the estimated time the patient will need to remain in the hospital, assuming treatment plan goals are met and no additional complications. Post-Hospital Plan: Not yet determined Aniyah Mckeon MD Feb 04, 2017 04:46
[2017-02-04] MEDS ORDERED: CLINDAMYCIN 300 MG PREMIX 50 ML IV SCH ×2 (05:00→15:00)
[2017-02-04] MEDS: INSULIN ASPART SUPPLEMENTAL SCALE SQ SCH ×4 (08:00→21:00)
[2017-02-04] MEDS: FUROSEMIDE 40 MG/4 ML VIAL IV PUSH SCH ×2 (08:13→17:42)
[2017-02-04] MEDS: ENALAPRIL MALEATE 10 MG TAB PO SCH ×2 (08:14→21:45)
[2017-02-04] MEDS: POTASSIUM CHLORIDE 10 MEQ CONTROLLED RELEASE TAB PO SCH ×2 (08:14→21:45)
[2017-02-04] MEDS: amLODIPine BESYLATE 5 MG TAB PO SCH (08:14)
[2017-02-04] MEDS: METOPROLOL SUCCINATE 50 MG EXTENDED RELEASE TAB PO SCH (08:14)
[2017-02-04] MEDS: FERROUS SULFATE 325 MG (65 MG ELEMENTAL IRON) TAB PO SCH ×2 (08:14→21:45)
[2017-02-04] MEDS: BUMETANIDE 1 MG TAB PO SCH (08:14)
[2017-02-04] MEDS: AMIODARONE 200 MG TAB PO SCH (08:14)
[2017-02-04] MEDS ORDERED: FUROSEMIDE 40 MG/4 ML VIAL IVP SCH (09:00)
[2017-02-04 11:50] LABS: AUTOMATED NEUTROPHIL # 4.6 TH/MM3 (1.8-7.7); BASOPHIL # 0.1 TH/MM3 (0-0.2); BASOPHIL % 0.9 % (0.0-2.0); EOSINOPHIL # 0.1 TH/MM3 (0-0.4); EOSINOPHIL % 1.3 % (0.0-4.0); HEMATOCRIT 31.4 % (35.0-46.0); LYMPH % 12.6 % (9.0-44.0); LYMPHOCYTE # 0.8 TH/MM3 (1.0-4.8); MEAN CELL VOLUME 86.3 FL (80.0-100.0); MEAN CORPUSCULAR HEMOGLOBIN 27.4 PG (27.0-34.0); MEAN CORPUSCULAR HGB CONC 31.8 % (32.0-36.0); MONO % 13.7 % (0.0-8.0); NEUT % 71.5 % (16.0-70.0); PLATELET COUNT 302 TH/MM3 (150-450); RED BLOOD COUNT 3.64 MIL/MM3 (4.00-5.30); RED CELL DISTRIBUTION WIDTH 25.6 % (11.6-17.2); WHITE BLOOD COUNT 6.4 TH/MM3 (4.0-11.0)
[2017-02-04 11:52] LABS: HEMO FLAGS AUTO DIFF
[2017-02-04 12:09] LABS: POTASSIUM 3.5 MEQ/L (3.5-5.1)
[2017-02-04 12:49] LABS: SCAN/DIFF AUTO DIFF CONFIRMED
--- NOTE | 2017-02-04 13:22 | PD.ID.CON ---
History of Present Illness Service ID Consult Requested By Dr Fulton Reason for Consult ? 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 Her AICD device migrated lower to her L breast after a blunt trauma She has positive blood and wound cultures Both device and leads were extarcted and pt was put on 6 weeks of abx which she completed She presetnd c/o swelling and pain in L breast and worsening generalysed edema No fever US of the breast showed complex cystic lesion measuring up to 11.8 cm Review of Systems ROS Limitations: Poor Historian Past Family Social History Allergies: Coded Allergies: penicillin G (Unverified Allergy, Severe, rash, 12/31/16) benazepril (Unverified Allergy, Mild, 12/31/16) HUMBLE inhibitor angioedema, swelling of the face lips and anterior tongue captopril (Unverified Allergy, Mild, 12/31/16) HUMBLE inhibitor angioedema, swelling of the face lips and anterior tongue enalaprilat (Unverified Allergy, Mild, 12/31/16) HUMBLE inhibitor angioedema, swelling of the face lips and anterior tongue fosinopril (Unverified Allergy, Mild, 12/31/16) HUMBLE inhibitor angioedema, swelling of the face lips and anterior tongue lisinopril (Unverified Allergy, Mild, 12/31/16) HUMBLE inhibitor angioedema, swelling of the face lips and anterior tongue quinapril (Unverified Allergy, Mild, 12/31/16) HUMBLE inhibitor angioedema, swelling of the face lips and anterior tongue Uncoded Allergies: NON COMPATIBLE PACEMAKER (Adverse Reaction, Severe, MRI PRECAUTION / PACEMAKER, 11/03/14) MRI PRECAUTION. PACEMAKER Past Medical History Diabetes mellitus Hypertension Congestive heart failure Coronary artery disease status post cardiac stents placed Past Surgical History Past Surgical History Right breast lumpectomy: benign Hysterectomy Appendectomy AICD explantation Active Ordered Medications Medications where reviewed in EMR Antibiotics Include: NONE Family History heart disease; DM Social History + Tobacco. 1ppd socially ETOH. No Illicit Drugs. Physical Exam Vital Signs Vital Signs Date Time Temp Pulse Resp B/P (MAP) Pulse Ox O2 Delivery O2 Flow Rate FiO2 11/7/17 08:00 96.8 94 18 149/82 (104) 95 02/04/17 04:00 96.0 86 16 103/62 (76) 93 02/04/17 00:11 96.5 86 17 127/67 (87) 100 02/03/17 22:49 02/03/17 19:51 90 50 99 Nasal Cannula 3.00 02/03/17 19:49 91 14 137/79 (98) 98 Nasal Cannula 3.00 02/03/17 17:38 Nasal Cannula 3.00 02/03/17 17:33 Nasal Cannula 02/03/17 15:40 97.8 89 14 182/85 (117) 97 Nasal Cannula 3.00 Physical Exam CONSTITUTIONAL/GENERAL: This is an adequately nourished patient, in no apparent distress. TUBES/LINES/DRAINS: SKIN: No jaundice, rashes, or lesions. Skin temperature appropriate. Not diaphoretic. L reasts: healed breast scar with large fluctuant area next to it Minimal tenderness Breast is enlarged with some erythema no ecchymoses L breast is quite edemantous, HEAD: Atraumatic. Normocephalic. EYES: Pupils equal and round and reactive. Extraocular motions intact. No scleral icterus. No injection or drainage. Fundi not examined. ENT: Hearing grossly normal. Nose without bleeding or purulent drainage. Throat without visible erythema, exudates, masses, or lesions. Edentulous NECK: Trachea midline. Supple, nontender. No palpable thyroid enlargement or nodularity. CARDIOVASCULAR: Regular rate and rhythm without murmurs, gallops, or rubs. No JVD. Peripheral pulses symmetric. RESPIRATORY/CHEST: Symmetric, unlabored respirations. Clear to auscultation. Breath sounds equal bilaterally. No wheezes, rales, or rhonchi. GASTROINTESTINAL: Abdomen soft, non-tender, distended with prominent edema. No hepato-splenomegaly, or palpable masses. No guarding. Bowel sounds present. GENITOURINARY: Without palpable bladder distension. Wolff catheter in place with clear light yellow urine MUSCULOSKELETAL: Extremities without clubbing, cyanosis, 4+ tight pitting edema. No joint tenderness or effusion noted. No calf tenderness. No mottling or clubbing. LYMPHATICS: No palpable cervical or supraclavicular adenopathy. NEUROLOGICAL: Awake and alert. Motor and sensory grossly within normal limits. Follows commands. Clear speech . Moves all extremities. PSYCHIATRIC: No obvious anxiety/depression. no apparent hallucinations or other psychotic thought process. Laboratory Laboratory Tests Test 02/03/17 17:55 02/03/17 21:30 02/04/17 11:20 White Blood Count 6.2 6.4 Red Blood Count 3.56 3.64 Hemoglobin 9.7 10.0 Hematocrit 30.5 31.4 Mean Corpuscular Volume 85.8 86.3 Mean Corpuscular Hemoglobin 27.3 27.4 Mean Corpuscular Hemoglobin Concent 31.9 31.8 Red Cell Distribution Width 25.3 25.6 Platelet Count 285 302 Mean Platelet Volume 6.9 6.7 Neutrophils (%) (Auto) 71.4 71.5 Lymphocytes (%) (Auto) 11.6 12.6 Monocytes (%) (Auto) 14.2 13.7 Eosinophils (%) (Auto) 1.9 1.3 Basophils (%) (Auto) 0.9 0.9 Neutrophils # (Auto) 4.4 4.6 Lymphocytes # (Auto) 0.7 0.8 Monocytes # (Auto) 0.9 0.9 Eosinophils # (Auto) 0.1 0.1 Basophils # (Auto) 0.1 0.1 CBC Comment AUTO DIFF AUTO DIFF Differential Comment AUTO DIFF CONFIRMED Platelet Estimate NORMAL Platelet Morphology Comment NORMAL Target Cells 1+ Tear Drop Cells 1+ Ovalocytes 1+ Keratocytes OCC Prothrombin Time 13.6 Prothromb Time International Ratio 1.2 Activated Partial Thromboplast Time 34.2 Blood Urea Nitrogen 10 9 Creatinine 0.99 1.12 Random Glucose 86 79 Total Protein 8.0 Albumin 2.8 Calcium Level 8.7 8.6 Magnesium Level 1.7 Alkaline Phosphatase 127 Aspartate Amino Transf (AST/SGOT) 22 Alanine Aminotransferase (ALT/SGPT) 9 Total Bilirubin 1.2 Sodium Level 140 139 Potassium Level 3.7 3.5 Chloride Level 106 103 Carbon Dioxide Level 25.5 27.0 Anion Gap 9 9 Estimat Glomerular Filtration Rate 67 58 Total Creatine Kinase 106 Creatine Kinase MB 1.4 Troponin I 0.02 B-Type Natriuretic Peptide 2847 Urine Color LIGHT-YELLOW Urine Turbidity CLEAR Urine pH 5.0 Urine Specific Diana 1.007 Urine Protein NEG Urine Glucose (UA) NEG Urine Ketones NEG Urine Occult Blood NEG Urine Nitrite NEG Urine Bilirubin NEG Urine Urobilinogen LESS THAN 2.0 Urine Leukocyte Esterase SMALL Urine RBC LESS THAN 1 Urine WBC 1 Urine Bacteria OCC Urine Mucus FEW Microscopic Urinalysis Comment CATH-CULTURE IND Date/Time Source Procedure Growth Status 02/04/17 11:27 Blood Peripheral Aerobic Blood Culture Pending Received 02/04/17 11:27 Blood Peripheral Anaerobic Blood Culture Pending Received 02/03/17 21:30 Urine Catheterized Urine Urine Culture Pending Received Result Diagram: 02/04/17 1120 02/04/17 1120 Imaging Last Impressions Chest X-Ray 02/03/17 1547 Signed Impressions: Service Date/Time: Friday, February 03, 2017 16:05 - CONCLUSION: 1. Marked cardiomegaly. 2. Left basilar consolidation/effusion. This actually appears slightly improved when compared to prior. 3. Right upper extremity PICC line with the tip projecting over the central venous system. Mt Alvarez MD Breast Ultrasound 02/03/17 0000 Signed Impressions: Service Date/Time: Friday, February 03, 2017 18:49 - CONCLUSION: Complex cystic lesion measuring up to 11.8 cm centered at the 12:00 position left breast. Given the clinical history of recent procedure in this area this could represent a noninfected or infected fluid collection. Given the complex internal architecture, percutaneous drainage will likely not be successful. Once the patient's condition permits, consider outpatient diagnostic mammogram and ultrasound followup. Gregory Bob MD ADDENDUM: Another consideration given the prior CT appearance and current imaging findings is an old hematoma. Gregory Bob MD Abdomen/Pelvis CT 02/03/17 0000 Signed Impressions: Service Date/Time: Friday, February 03, 2017 17:35 - CONCLUSION: 1. CT findings characteristic of right heart insufficiency with diffuse but stable anasarca in the visible soft tissues and leaves of the mesentery as well as a small amount of ascites. Intrahepatic IVC is markedly dilated. 2. Previously identified bilateral pleural effusions are significantly improved with only a small amount of fluid on the left. There is some persistent atelectasis in the left base. 3. Heart size remains prominent. 4. Otherwise stable. Mt Alvarez MD Assessment and Plan Assessment and Plan Assessment and Plan MSSA AICD lead endocarditis sp AICD explantation L breast hematoma vs infected hematoma 2/2 previous surg procedure No fever or leukocytosis CHF with fluid oveload consult Dr Blackman - no abx ulneless fever, leukocytosis, + clx or other signs of infection Darleen Tamayo MD Feb 04, 2017 13:22
[2017-02-04] MEDS: CLINDAMYCIN 300 MG/NS 100 ML IV SCH ×4 (15:40→21:45)
[2017-02-04] MEDS: WARFARIN SOD 4 MG TAB PO SCH (17:42)
--- NOTE | 2017-02-04 18:44 | EKG ---
Date Performed: 02/03/2017 Time Performed: 19:56:08 PTAGE: 71 years EKG: Sinus rhythm WITH OCCASIONAL ECTOPIC PREMATURE COMPLEXES WITH MARKED RHYTHM IRREGULARITY, POSSIBLE NON-CONDUCTED PAC, SA BLOCK, AV BLOCK, OR SINUS PAUSE LOW QRS VOLTAGE POSSIBLE ANTERIOR MYOCARDIAL INFARCTION ABNOR MAL ECG Compared to prior tracing no significant change PREVIOUS TRACING : 01/01/2017 02.24.25 DOCTOR: Ana Rowley Interpretating Date/Time 02/04/2017 18:43:14
[2017-02-05] VITALS (8 sets, daily range): BP systolic 107–137; BP diastolic 57–78; PULSE 68–82; RESP 16–22; TEMP 96.2–97.7; O2SAT 94–97
[2017-02-05] MEDS: CLINDAMYCIN 300 MG/NS 100 ML IV SCH ×4 (03:51→08:46)
[2017-02-05] MEDS: INSULIN ASPART SUPPLEMENTAL SCALE SQ SCH ×4 (08:00→21:00)
[2017-02-05] MEDS: FUROSEMIDE 40 MG/4 ML VIAL IV PUSH SCH (08:46)
[2017-02-05] MEDS: AMIODARONE 200 MG TAB PO SCH (08:46)
[2017-02-05] MEDS: FERROUS SULFATE 325 MG (65 MG ELEMENTAL IRON) TAB PO SCH ×2 (08:46→21:48)
[2017-02-05] MEDS: POTASSIUM CHLORIDE 10 MEQ CONTROLLED RELEASE TAB PO SCH ×2 (08:46→21:48)
[2017-02-05] MEDS: METOPROLOL SUCCINATE 50 MG EXTENDED RELEASE TAB PO SCH (08:47)
[2017-02-05] MEDS: BUMETANIDE 1 MG TAB PO SCH (08:47)
[2017-02-05] MEDS: amLODIPine BESYLATE 5 MG TAB PO SCH (08:47)
[2017-02-05] MEDS: ENALAPRIL MALEATE 10 MG TAB PO SCH ×2 (08:47→21:48)
[2017-02-05 12:11] LABS: INTERNATIONAL NORMALIZED RATIO 1.3 RATIO; PROTHROMBIN TIME - PATIENT 15.1 SEC (9.8-11.6)
[2017-02-05 14:16] LABS: BICARBONATE 23.6 MEQ/L (21.0-32.0); POTASSIUM 3.6 MEQ/L (3.5-5.1)
--- NOTE | 2017-02-05 14:22 | HHI.PR ---
Subjective Remarks left breast discomfort no fever or chills Objective Vitals Vital Signs Date Time Temp Pulse Resp B/P (MAP) Pulse Ox O2 Delivery O2 Flow Rate FiO2 02/05/17 12:00 96.6 73 17 114/60 (78) 94 02/05/17 08:00 96.2 82 17 125/60 (81) 97 02/05/17 07:35 Nasal Cannula 3.00 02/05/17 04:00 97.6 78 22 107/57 (74) 94 02/05/17 00:00 97.6 78 20 137/66 (89) 95 02/04/17 20:39 Nasal Cannula 2.00 02/04/17 20:37 83 02/04/17 19:20 96.5 82 18 130/74 (92) 02/04/17 16:05 97.0 79 18 133/80 (97) 95 I/O 02/04/17 02/04/17 02/04/17 02/05/17 02/05/17 02/05/17 07:00 15:00 23:00 07:00 15:00 23:00 Intake Total 480 ml 480 ml 480 ml 480 ml 480 ml Output Total 1520 ml 1000 ml 475 ml 225 ml Balance -1040 ml -520 ml 480 ml 5 ml 255 ml Intake Oral 480 ml 480 ml 480 ml 480 ml 480 ml Output Urine Total 1520 ml 1000 ml 475 ml 225 ml # Voids 3 # Bowel Movements 2 4 0 5 3 Result Diagram: 02/04/17 1120 02/05/17 1136 Imaging Last Impressions Chest X-Ray 02/03/17 1547 Signed Impressions: Service Date/Time: Friday, February 03, 2017 16:05 - CONCLUSION: 1. Marked cardiomegaly. 2. Left basilar consolidation/effusion. This actually appears slightly improved when compared to prior. 3. Right upper extremity PICC line with the tip projecting over the central venous system. Mt Alvarez MD Breast Ultrasound 02/03/17 0000 Signed Impressions: Service Date/Time: Friday, February 03, 2017 18:49 - CONCLUSION: Complex cystic lesion measuring up to 11.8 cm centered at the 12:00 position left breast. Given the clinical history of recent procedure in this area this could represent a noninfected or infected fluid collection. Given the complex internal architecture, percutaneous drainage will likely not be successful. Once the patient's condition permits, consider outpatient diagnostic mammogram and ultrasound followup. Gregory Bob MD ADDENDUM: Another consideration given the prior CT appearance and current imaging findings is an old hematoma. Gregory Bob MD Abdomen/Pelvis CT 02/03/17 0000 Signed Impressions: Service Date/Time: Friday, February 03, 2017 17:35 - CONCLUSION: 1. CT findings characteristic of right heart insufficiency with diffuse but stable anasarca in the visible soft tissues and leaves of the mesentery as well as a small amount of ascites. Intrahepatic IVC is markedly dilated. 2. Previously identified bilateral pleural effusions are significantly improved with only a small amount of fluid on the left. There is some persistent atelectasis in the left base. 3. Heart size remains prominent. 4. Otherwise stable. 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 Tamayo- consulted Dr. 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 restart gentle diuresis in am if creatinine improves Continue life vest Oxygen when necessary Continue home medications Acute kidney injury - patient being overly diuresed- on both Lasix 40 IV bid and bumex 2 mg daily - hold diuretics for now - BMP in am A. fib- rate controlled Anticoagulated on Coumadin Subtherapeutic INR at 1.2, consult pharmacy for Coumadin dosing Continue home medications Insulin-dependent diabetes mellitus Continue home Lantus SSI Hypertension Continue home medications COPD Duo nebs when necessary Continue home oxygen FEN Heart healthy diet Electrolytes: Replete when necessary Kate Layton MD Feb 05, 2017 14:22
[2017-02-05] MEDS: WARFARIN SOD 4 MG TAB PO SCH (16:00)
[2017-02-05] MEDS: ENOXAPARIN SODIUM 40 MG/0.4 ML SYRINGE SQ SCH (21:47)
[2017-02-06] VITALS (8 sets, daily range): BP systolic 96–149; BP diastolic 51–83; PULSE 55–71; RESP 14–22; TEMP 95.4–97.8; O2SAT 96–100
[2017-02-06 06:12] LABS: INTERNATIONAL NORMALIZED RATIO 1.6 RATIO; PROTHROMBIN TIME - PATIENT 18.1 SEC (9.8-11.6)
[2017-02-06] MEDS: INSULIN ASPART SUPPLEMENTAL SCALE SQ SCH ×4 (08:00→21:00)
[2017-02-06] MEDS: POTASSIUM CHLORIDE 10 MEQ CONTROLLED RELEASE TAB PO SCH ×2 (09:23→21:04)
[2017-02-06] MEDS: amLODIPine BESYLATE 5 MG TAB PO SCH (09:23)
[2017-02-06] MEDS: FERROUS SULFATE 325 MG (65 MG ELEMENTAL IRON) TAB PO SCH ×2 (09:23→21:04)
[2017-02-06] MEDS: ENALAPRIL MALEATE 10 MG TAB PO SCH ×2 (09:23→21:04)
[2017-02-06] MEDS: METOPROLOL SUCCINATE 50 MG EXTENDED RELEASE TAB PO SCH (09:23)
[2017-02-06] MEDS: AMIODARONE 200 MG TAB PO SCH (09:23)
[2017-02-06 10:42] LABS: BICARBONATE 24.9 MEQ/L (21.0-32.0); POTASSIUM 3.8 MEQ/L (3.5-5.1)
[2017-02-06] MEDS: ACETAMINOPHEN 325 MG TAB PO PRN (12:00)
--- NOTE | 2017-02-06 16:57 | HHI.PR ---
Addendum to Inpatient Note Additional Information Seen around 4 pm full note to follow pt is afebrile L breast is more edematous UA, no pyuria + urine clx, cw asymptomatic bacteriuria no abx awaiting Dr Morgan's rec's family Darleen Amaro MD Feb 06, 2017 16:57
--- NOTE | 2017-02-06 17:06 | HHI.PR ---
Subjective Remarks left breast more edematous larger Objective Vitals Vital Signs Date Time Temp Pulse Resp B/P (MAP) Pulse Ox O2 Delivery O2 Flow Rate FiO2 02/06/17 12:00 95.4 65 17 124/80 (95) 99 02/06/17 09:25 100 Nasal Cannula 3.00 02/06/17 08:00 96.3 71 17 142/83 (102) 100 02/06/17 04:25 97.8 71 20 149/77 (101) 97 02/06/17 00:28 96.6 68 22 125/70 (88) 96 02/05/17 23:00 68 02/05/17 20:00 70 02/05/17 20:00 97 Nasal Cannula 3.00 02/05/17 19:41 97.7 69 16 137/78 (97) 97 I/O 02/05/17 02/05/17 02/05/17 02/06/17 02/06/17 02/06/17 07:00 15:00 23:00 07:00 15:00 23:00 Intake Total 480 ml 480 ml 240 ml 360 ml Output Total 475 ml 225 ml 200 ml 200 ml 150 ml Balance 5 ml 255 ml 40 ml -200 ml 210 ml Intake Oral 480 ml 480 ml 240 ml 360 ml Output Urine Total 475 ml 225 ml 200 ml 200 ml 150 ml # Bowel Movements 5 3 2 4 3 Result Diagram: 02/04/17 1120 02/06/17 1016 Imaging Last Impressions Chest X-Ray 02/03/17 1547 Signed Impressions: Service Date/Time: Friday, February 03, 2017 16:05 - CONCLUSION: 1. Marked cardiomegaly. 2. Left basilar consolidation/effusion. This actually appears slightly improved when compared to prior. 3. Right upper extremity PICC line with the tip projecting over the central venous system. Mt Alvarez MD Breast Ultrasound 02/03/17 0000 Signed Impressions: Service Date/Time: Friday, February 03, 2017 18:49 - CONCLUSION: Complex cystic lesion measuring up to 11.8 cm centered at the 12:00 position left breast. Given the clinical history of recent procedure in this area this could represent a noninfected or infected fluid collection. Given the complex internal architecture, percutaneous drainage will likely not be successful. Once the patient's condition permits, consider outpatient diagnostic mammogram and ultrasound followup. Gregory Bob MD ADDENDUM: Another consideration given the prior CT appearance and current imaging findings is an old hematoma. Gregory Bob MD Abdomen/Pelvis CT 02/03/17 0000 Signed Impressions: Service Date/Time: Friday, February 03, 2017 17:35 - CONCLUSION: 1. CT findings characteristic of right heart insufficiency with diffuse but stable anasarca in the visible soft tissues and leaves of the mesentery as well as a small amount of ascites. Intrahepatic IVC is markedly dilated. 2. Previously identified bilateral pleural effusions are significantly improved with only a small amount of fluid on the left. There is some persistent atelectasis in the left base. 3. Heart size remains prominent. 4. Otherwise stable. 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 Tamayo- consulted Dr. 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 restart gentle diuresis in am if creatinine improves Continue life vest Oxygen when necessary Continue home medications Acute kidney injury - patient being overly diuresed- on both Lasix 40 IV bid and bumex 2 mg daily - hold diuretics - start gentle hydration- x 60 cc/hr - BMP in am A. fib- rate controlled Anticoagulated on Coumadin Subtherapeutic INR at 1.2, consult pharmacy for Coumadin dosing- hold- check CBC stat Continue home medications Insulin-dependent diabetes mellitus Continue home Lantus SSI Hypertension Continue home medications COPD Duo nebs when necessary Continue home oxygen FEN Heart healthy diet Electrolytes: Replete when necessary Kate Layton MD Feb 06, 2017 17:06
[2017-02-06 18:04] LABS: BASOPHIL # 0.1 TH/MM3 (0-0.2); EOSINOPHIL # 0.1 TH/MM3 (0-0.4); EOSINOPHIL % 1.1 % (0.0-4.0); HEMATOCRIT 30.7 % (35.0-46.0); LYMPH % 12.8 % (9.0-44.0); LYMPHOCYTE # 0.8 TH/MM3 (1.0-4.8); MEAN CORPUSCULAR HEMOGLOBIN 27.5 PG (27.0-34.0); MEAN CORPUSCULAR HGB CONC 31.3 % (32.0-36.0); MONO % 17.3 % (0.0-8.0); NEUT % 67.8 % (16.0-70.0); PLATELET COUNT 296 TH/MM3 (150-450); RED BLOOD COUNT 3.48 MIL/MM3 (4.00-5.30); WHITE BLOOD COUNT 5.9 TH/MM3 (4.0-11.0)
[2017-02-06] MEDS: SODIUM CHLOR 0.9% 1000 ML INJ 1,000 ML IV SCH (18:07)
[2017-02-06 18:12] LABS: HEMO FLAGS AUTO DIFF
[2017-02-06 18:49] LABS: POLYS (SEG NEUTROPHILS) 68 % (16-70); SCAN/DIFF FINAL DIFF MANUAL; WBC DIFF SAMPLE 100
--- NOTE | 2017-02-06 22:50 | HHI.IDPN ---
Subjective Subjective Remarks Seen around 4 pm this is delayed entry afebrile Hypothermic BNP 2800+ worsning edema of L breast Antibiotics none Allergies: Coded Allergies: penicillin G (Unverified Allergy, Severe, rash, 12/31/16) benazepril (Unverified Allergy, Mild, 12/31/16) HUMBLE inhibitor angioedema, swelling of the face lips and anterior tongue captopril (Unverified Allergy, Mild, 12/31/16) HUMBLE inhibitor angioedema, swelling of the face lips and anterior tongue enalaprilat (Unverified Allergy, Mild, 12/31/16) HUMBLE inhibitor angioedema, swelling of the face lips and anterior tongue fosinopril (Unverified Allergy, Mild, 12/31/16) HUMBLE inhibitor angioedema, swelling of the face lips and anterior tongue lisinopril (Unverified Allergy, Mild, 12/31/16) HUMBLE inhibitor angioedema, swelling of the face lips and anterior tongue quinapril (Unverified Allergy, Mild, 12/31/16) HUMBLE inhibitor angioedema, swelling of the face lips and anterior tongue Uncoded Allergies: NON COMPATIBLE PACEMAKER (Adverse Reaction, Severe, MRI PRECAUTION / PACEMAKER, 11/03/14) MRI PRECAUTION. PACEMAKER Objective . Vital Signs Date Time Temp Pulse Resp B/P (MAP) Pulse Ox O2 Delivery O2 Flow Rate FiO2 02/06/17 18:59 96.4 57 16 117/51 (73) 99 02/06/17 16:50 95.9 55 14 96/67 (77) 100 02/06/17 12:30 63 02/06/17 12:00 95.4 65 17 124/80 (95) 99 02/06/17 09:25 100 Nasal Cannula 3.00 02/06/17 08:00 96.3 71 17 142/83 (102) 100 02/06/17 04:25 97.8 71 20 149/77 (101) 97 02/06/17 00:28 96.6 68 22 125/70 (88) 96 02/05/17 23:00 68 02/06/17 02/06/17 02/07/17 15:00 23:00 07:00 Intake Total 360 ml Output Total 150 ml Balance 210 ml Intake Oral 360 ml Output Urine Total 150 ml # Bowel Movements 3 . Laboratory Tests Test 02/06/17 17:35 White Blood Count 5.9 TH/MM3 Red Blood Count 3.48 MIL/MM3 Hemoglobin 9.6 GM/DL Hematocrit 30.7 % Mean Corpuscular Volume 88.0 FL Mean Corpuscular Hemoglobin 27.5 PG Mean Corpuscular Hemoglobin Concent 31.3 % Red Cell Distribution Width 25.0 % Platelet Count 296 TH/MM3 Mean Platelet Volume 6.8 FL Neutrophils (%) (Auto) 67.8 % Lymphocytes (%) (Auto) 12.8 % Monocytes (%) (Auto) 17.3 % Eosinophils (%) (Auto) 1.1 % Basophils (%) (Auto) 1.0 % Neutrophils # (Auto) 4.0 TH/MM3 Lymphocytes # (Auto) 0.8 TH/MM3 Monocytes # (Auto) 1.0 TH/MM3 Eosinophils # (Auto) 0.1 TH/MM3 Basophils # (Auto) 0.1 TH/MM3 CBC Comment AUTO DIFF Differential Total Cells Counted 100 Neutrophils % (Manual) 68 % Lymphocytes % 16 % Monocytes % 16 % Neutrophils # (Manual) 4.0 TH/MM3 Differential Comment FINAL DIFF MANUAL Laboratory Tests Test 02/05/17 11:36 02/06/17 10:16 Blood Urea Nitrogen 12 MG/DL 15 MG/DL Creatinine 1.29 MG/DL 1.35 MG/DL Random Glucose 97 MG/DL 129 MG/DL Calcium Level 8.6 MG/DL 8.4 MG/DL Sodium Level 139 MEQ/L 138 MEQ/L Potassium Level 3.6 MEQ/L 3.8 MEQ/L Chloride Level 105 MEQ/L 106 MEQ/L Carbon Dioxide Level 23.6 MEQ/L 24.9 MEQ/L Anion Gap 10 MEQ/L 7 MEQ/L Estimat Glomerular Filtration Rate 49 ML/MIN 47 ML/MIN Microbiology Date/Time Source Procedure Growth Status 02/04/17 11:27 Blood Peripheral Aerobic Blood Culture - Preliminary NO GROWTH IN 2 DAYS Resulted 02/04/17 11:27 Blood Peripheral Anaerobic Blood Culture - Preliminary NO GROWTH IN 2 DAYS Resulted 02/04/17 11:20 Blood Peripheral Aerobic Blood Culture - Preliminary NO GROWTH IN 2 DAYS Resulted 02/04/17 11:20 Blood Peripheral Anaerobic Blood Culture - Preliminary NO GROWTH IN 2 DAYS Resulted Imaging Last Impressions Chest X-Ray 02/03/17 2782 Signed Impressions: Service Date/Time: Friday, February 03, 2017 16:05 - CONCLUSION: 1. Marked cardiomegaly. 2. Left basilar consolidation/effusion. This actually appears slightly improved when compared to prior. 3. Right upper extremity PICC line with the tip projecting over the central venous system. Mt Alvarez MD Breast Ultrasound 02/03/17 0000 Signed Impressions: Service Date/Time: Friday, February 03, 2017 18:49 - CONCLUSION: Complex cystic lesion measuring up to 11.8 cm centered at the 12:00 position left breast. Given the clinical history of recent procedure in this area this could represent a noninfected or infected fluid collection. Given the complex internal architecture, percutaneous drainage will likely not be successful. Once the patient's condition permits, consider outpatient diagnostic mammogram and ultrasound followup. Gregory Bob MD ADDENDUM: Another consideration given the prior CT appearance and current imaging findings is an old hematoma. Gregory Bob MD Abdomen/Pelvis CT 02/03/17 0000 Signed Impressions: Service Date/Time: Friday, February 03, 2017 17:35 - CONCLUSION: 1. CT findings characteristic of right heart insufficiency with diffuse but stable anasarca in the visible soft tissues and leaves of the mesentery as well as a small amount of ascites. Intrahepatic IVC is markedly dilated. 2. Previously identified bilateral pleural effusions are significantly improved with only a small amount of fluid on the left. There is some persistent atelectasis in the left base. 3. Heart size remains prominent. 4. Otherwise stable. Mt Alvarez MD Physical Exam CONSTITUTIONAL/GENERAL: This is an adequately nourished patient, in no apparent distress. TUBES/LINES/DRAINS: SKIN: No jaundice, rashes, or lesions. Skin temperature appropriate. Not diaphoretic. L reasts: healed breast scar with large fluctuant area next to it Minimal tenderness Breast is very edematous, tight , but very mildly tender, no erythema CARDIOVASCULAR: Regular rate and rhythm without murmurs, gallops, or rubs. No JVD. Peripheral pulses symmetric. RESPIRATORY/CHEST: Symmetric, unlabored respirations. Clear to auscultation. Breath sounds equal bilaterally. No wheezes, rales, or rhonchi. GASTROINTESTINAL: Abdomen soft, non-tender, distended with prominent edema. No hepato-splenomegaly, or palpable masses. No guarding. Bowel sounds present. GENITOURINARY: Without palpable bladder distension. Wolff catheter in place with clear light yellow urine MUSCULOSKELETAL: Extremities without clubbing, cyanosis, improving softer pitting edema. No joint tenderness or effusion noted. No calf tenderness. No mottling or clubbing. LYMPHATICS: No palpable cervical or supraclavicular adenopathy. NEUROLOGICAL: Awake and alert. Motor and sensory grossly within normal limits. Follows commands. Clear speech . Moves all extremities. 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
[2017-02-07] VITALS (8 sets, daily range): BP systolic 117–135; BP diastolic 57–84; PULSE 58–70; RESP 16–20; TEMP 95.4–99.5; O2SAT 93–99
[2017-02-07 07:16] LABS: INTERNATIONAL NORMALIZED RATIO 1.5 RATIO; PROTHROMBIN TIME - PATIENT 16.7 SEC (9.8-11.6)
[2017-02-07] MEDS: INSULIN ASPART SUPPLEMENTAL SCALE SQ SCH ×4 (08:00→19:55)
--- NOTE | 2017-02-07 08:53 | HHI.PR ---
Subjective Remarks patient feeling better left breast - still with marked swelling, edema, but softer compared to yesterday's exam Objective Vitals Vital Signs Date Time Temp Pulse Resp B/P (MAP) Pulse Ox O2 Delivery O2 Flow Rate FiO2 02/07/17 04:00 97.3 70 16 125/58 (80) 97 02/07/17 00:00 99.5 67 16 135/62 (86) 97 02/06/17 20:00 99 Nasal Cannula 3.00 02/06/17 20:00 63 02/06/17 18:59 96.4 57 16 117/51 (73) 99 02/06/17 16:50 95.9 55 14 96/67 (77) 100 02/06/17 12:30 63 02/06/17 12:00 95.4 65 17 124/80 (95) 99 02/06/17 09:25 100 Nasal Cannula 3.00 I/O 02/06/17 02/06/17 02/06/17 02/07/17 02/07/17 02/07/17 07:00 15:00 23:00 07:00 15:00 23:00 Intake Total 360 ml 400 ml 893 ml Output Total 200 ml 150 ml 225 ml 250 ml Balance -200 ml 210 ml 175 ml 643 ml Intake Oral 360 ml 400 ml 240 ml IV Total 653 ml Output Urine Total 200 ml 150 ml 225 ml 250 ml # Bowel Movements 4 3 2 3 Result Diagram: 02/06/17 1735 02/06/17 1016 Imaging Last Impressions Chest X-Ray 02/03/17 1547 Signed Impressions: Service Date/Time: Friday, February 03, 2017 16:05 - CONCLUSION: 1. Marked cardiomegaly. 2. Left basilar consolidation/effusion. This actually appears slightly improved when compared to prior. 3. Right upper extremity PICC line with the tip projecting over the central venous system. Mt Alvarez MD Breast Ultrasound 02/03/17 0000 Signed Impressions: Service Date/Time: Friday, February 03, 2017 18:49 - CONCLUSION: Complex cystic lesion measuring up to 11.8 cm centered at the 12:00 position left breast. Given the clinical history of recent procedure in this area this could represent a noninfected or infected fluid collection. Given the complex internal architecture, percutaneous drainage will likely not be successful. Once the patient's condition permits, consider outpatient diagnostic mammogram and ultrasound followup. Gregory Bob MD ADDENDUM: Another consideration given the prior CT appearance and current imaging findings is an old hematoma. Gregory Bob MD Abdomen/Pelvis CT 02/03/17 0000 Signed Impressions: Service Date/Time: Friday, February 03, 2017 17:35 - CONCLUSION: 1. CT findings characteristic of right heart insufficiency with diffuse but stable anasarca in the visible soft tissues and leaves of the mesentery as well as a small amount of ascites. Intrahepatic IVC is markedly dilated. 2. Previously identified bilateral pleural effusions are significantly improved with only a small amount of fluid on the left. There is some persistent atelectasis in the left base. 3. Heart size remains prominent. 4. Otherwise stable. 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 Tamayo- consulted- Cardiology - H and H stable- recheck will hold Lovenox and coumadin for now History of ischemic CMP- clinically not in failure BNP 2847 - was placed on both IV Lasix and bumex on admission - hold for now with HARVEY. - stat BMP now - restart gentle diuresis if creatinine better Continue life vest Oxygen when necessary Continue home medications Cardiology consulted- s/w Dr. Feliciano Acute kidney injury - patient was overly diuresed- on both Lasix 40 IV bid and bumex 2 mg daily - hold diuretics- BMP now - on gentle hydration- x 60 cc/hr - restart gentle diuresis A. fib- rate controlled on Coumadin- hold Subtherapeutic INR at 1.2, consult pharmacy for Coumadin dosing- hold- check CBC stat Continue home medications Acute anemia - give 2 units RBC Insulin-dependent diabetes mellitus Continue home Lantus SSI Hypertension Continue home medications COPD Duo nebs when necessary Continue home oxygen FEN Heart healthy diet Electrolytes: Replete when necessary d/w Dr. Tamayo d/w Dr. Feliciano- aware of this patient and states he spoke to Dr. Garcia about this -I will put in a formal consult to Dr.C Garcia- cardiothoracic surgery- Kate Arita MD Feb 07, 2017 08:53
[2017-02-07] MEDS: amLODIPine BESYLATE 5 MG TAB PO SCH (09:01)
[2017-02-07] MEDS: AMIODARONE 200 MG TAB PO SCH (09:01)
[2017-02-07] MEDS: FERROUS SULFATE 325 MG (65 MG ELEMENTAL IRON) TAB PO SCH ×2 (09:02→19:56)
[2017-02-07] MEDS: METOPROLOL SUCCINATE 50 MG EXTENDED RELEASE TAB PO SCH (09:02)
[2017-02-07] MEDS: ENALAPRIL MALEATE 10 MG TAB PO SCH (09:02)
[2017-02-07] MEDS: POTASSIUM CHLORIDE 10 MEQ CONTROLLED RELEASE TAB PO SCH (09:02)
[2017-02-07 10:26] LABS: AUTOMATED NEUTROPHIL # 3.3 TH/MM3 (1.8-7.7); BASOPHIL # 0.1 TH/MM3 (0-0.2); BASOPHIL % 1.1 % (0.0-2.0); EOSINOPHIL # 0.1 TH/MM3 (0-0.4); EOSINOPHIL % 1.3 % (0.0-4.0); HEMATOCRIT 23.9 % (35.0-46.0); HEMO FLAGS DIFF FINAL; LYMPH % 11.3 % (9.0-44.0); LYMPHOCYTE # 0.5 TH/MM3 (1.0-4.8); MEAN CELL VOLUME 88.4 FL (80.0-100.0); MEAN CORPUSCULAR HEMOGLOBIN 27.6 PG (27.0-34.0); MEAN CORPUSCULAR HGB CONC 31.2 % (32.0-36.0); MONO % 16.8 % (0.0-8.0); NEUT % 69.5 % (16.0-70.0); PLATELET COUNT 221 TH/MM3 (150-450); RED CELL DISTRIBUTION WIDTH 24.8 % (11.6-17.2); WHITE BLOOD COUNT 4.8 TH/MM3 (4.0-11.0)
[2017-02-07 10:53] LABS: BICARBONATE 25.6 MEQ/L (21.0-32.0); POTASSIUM 4.1 MEQ/L (3.5-5.1)
--- NOTE | 2017-02-07 14:00 | HHI.PR ---
Addendum to Inpatient Note Additional Information dw Dr Joy pt will be evaluated by CT surg later today - will cont to wihthold abx unless foluid clx will roller turner to be positive dw Kinjal Isaac Alexandra A. MD Feb 07, 2017 14:00
[2017-02-07] MEDS ORDERED: CHLORHEXIDINE GLUCONATE 4% SOLN 120 ML BTL TOPICAL SCH (18:30)
[2017-02-07] MEDS ORDERED: CEFAZOLIN INJ 500 MG in SODIUM CHLORIDE 0.9% IRR BTL 500 ML IRRIGATION SCH (18:30)
[2017-02-07] MEDS ORDERED: ceFAZolin 2 GM PREMIX 50 ML IV SCH (18:30)
[2017-02-07] MEDS ORDERED: SODIUM CHLORIDE 0.9% FLUSH 10 ML FLUSH IV FLUSH PRN (18:30)
[2017-02-07] MEDS ORDERED: DEXTROSE 50% IN WATER 50 ML VIAL(D50) IV PUSH PRN (18:30)
--- NOTE | 2017-02-07 18:52 | MB ---
cc: SARAH GILLIS M.D. DATE OF CONSULTATION: 02/07/2017. REASON FOR CONSULTATION: Electrophysiology consultation for heart failure and swelling in the device pocket. HISTORY OF PRESENT ILLNESS: Mrs. Champion is a 71-year-old -[place] female with history of congestive heart failure, cardiomyopathy, poor compliance to medical management. She has a device site infected and cellulitis. The device was removed by Dr. Amaral, CV surgeon, and the patient had a defibrillatory vest. She was having shortness of breath for the past couple of days and went to the emergency room. BNP was close to 2900. She was admitted for further management. The chart was reviewed. The patient was evaluated. ALLERGIES: 1. PENICILLIN. 2. BENAZEPRIL. 3. CAPTOPRIL. 4. ENALAPRIL. 5. FOSINOPRIL. 6. QUINAPRIL. SOCIAL HISTORY: The patient quit smoking. FAMILY HISTORY; Noncontributory to her current medical condition. MEDICATIONS: Currently the patient is on: 1. Amiodarone 200 milligrams a day. 2. Amlodipine 5 milligrams a day. 3. Enalapril 10 milligrams twice a day. 4. She is on metoprolol 50 milligrams a day. 5. She is on potassium. REVIEW OF SYSTEMS: Currently she refers some shortness of breath but improved but no chest pain and no chest discomfort. There is swelling of the left breast. PHYSICAL EXAMINATION: GENERAL: Alert, fully oriented. VITAL SIGNS: Her blood pressure is 126/73, pulse 64, respiratory rate 20. LUNGS: Ventilated. CARDIOVASCULAR: S1-S2 regular. No gallop. ABDOMEN: Abdomen obese, no mass. No bruits. EXTREMITIES: With some edema, more in the right leg. The left infraclavicular area and the breast area with swelling. LABORATORY DATA: Hemoglobin is 7.4, white blood cells 4.8. Potassium is 4.1, creatinine 1.55. INR is 1.5. ASSESSMENT AND RECOMMENDATIONS: Mrs. Champion's heart failure is improving. Her medication needs to be optimized. 1. At this point, I am going to discontinue the lisinopril. 2. I am going to resume Entresto tomorrow night. 3. She is on potassium and that will be discontinued. 4. Aldactone will be added. 5. I am going to modify the diuretic because her creatinine has begun to increase. 6. Also by initiating Entresto, there may be some increase in creatinine but that will stabilize. I did discuss the case since around Friday with Dr. Garcia. Apparently the patient was re-evaluated by him today and he was thinking about draining the fluid accumulation at the left breast. I advised the patient to be compliant with medical management. I will see her during the hospitalization. MD ELI Mcginnis/PRUDENCE /5:41 PM /6:36 PM
[2017-02-07] MEDS: SODIUM CHLORIDE 0.9% FLUSH 10 ML FLUSH IV FLUSH SCH (19:55)
[2017-02-07] MEDS: SODIUM CHLOR 0.9% 1000 ML INJ 1,000 ML IV SCH (19:55)
[2017-02-08 00:45] VITALS: BP 134/73; PULSE 67; RESP 20; TEMP 96; O2SAT 95
[2017-02-08 03:43] LABS: BACTERIA, URINE OCC /hpf; BLOOD, URINE MOD (NEG); COMMENT (UR) CULTURE INDICATED; CULTURE IF INDICATED CULTURE INDICATED; GLUCOSE,URINE NEG (NEG); HYALINE CAST, URINE 92 /lpf (RARE); KETONE, URINE NEG (NEG); MUCUS URINE FEW /lpf (OCC); NITRITE,URINE NEG (NEG); PH, URINE 5.5 (5.0-8.5); SQUAMOUS EPITHELIAL CELL URINE <1 /hpf (0-5); URINE COLOR YELLOW (YELLW/STRAW)
[2017-02-08 04:00] VITALS: BP 121/67; PULSE 57; RESP 18; TEMP 96; O2SAT 98
[2017-02-08 06:47] LABS: BICARBONATE 23.3 MEQ/L (21.0-32.0); POTASSIUM 4.3 MEQ/L (3.5-5.1)
[2017-02-08 07:05] LABS: AUTOMATED NEUTROPHIL # 4.1 TH/MM3 (1.8-7.7); BASOPHIL % 0.6 % (0.0-2.0); EOSINOPHIL # 0.1 TH/MM3 (0-0.4); EOSINOPHIL % 1.2 % (0.0-4.0); HEMATOCRIT 30.1 % (35.0-46.0); HEMO FLAGS DIFF FINAL; LYMPH % 13.7 % (9.0-44.0); LYMPHOCYTE # 0.8 TH/MM3 (1.0-4.8); MEAN CELL VOLUME 87.2 FL (80.0-100.0); MEAN CORPUSCULAR HEMOGLOBIN 27.7 PG (27.0-34.0); MEAN CORPUSCULAR HGB CONC 31.7 % (32.0-36.0); MONO % 17.6 % (0.0-8.0); NEUT % 66.9 % (16.0-70.0); PLATELET COUNT 251 TH/MM3 (150-450); RED BLOOD COUNT 3.45 MIL/MM3 (4.00-5.30); RED CELL DISTRIBUTION WIDTH 24.8 % (11.6-17.2); WHITE BLOOD COUNT 6.1 TH/MM3 (4.0-11.0)
[2017-02-08 08:00] VITALS: BP 108/73; PULSE 58; PULSE 64; RESP 21; TEMP 96; O2SAT 95
[2017-02-08] MEDS: INSULIN ASPART SUPPLEMENTAL SCALE SQ SCH ×4 (08:00→20:21)
[2017-02-08] MEDS: SODIUM CHLORIDE 0.9% FLUSH 10 ML FLUSH IV FLUSH SCH ×2 (09:00→20:12)
[2017-02-08] MEDS: amLODIPine BESYLATE 5 MG TAB PO SCH (09:00)
[2017-02-08] MEDS: FERROUS SULFATE 325 MG (65 MG ELEMENTAL IRON) TAB PO SCH ×2 (09:14→20:12)
[2017-02-08] MEDS: METOPROLOL SUCCINATE 50 MG EXTENDED RELEASE TAB PO SCH (09:14)
[2017-02-08] MEDS: AMIODARONE 200 MG TAB PO SCH (09:15)
[2017-02-08] MEDS: SPIRONOLACTONE 25 MG TAB PO SCH (09:15)
[2017-02-08] MEDS: SODIUM CHLOR 0.9% 1000 ML INJ 1,000 ML IV SCH (12:08)
--- NOTE | 2017-02-08 12:59 | HHI.PR ---
Subjective Remarks awake and alert minimal chest/breast discomfort "feels heavy" Objective Vitals Vital Signs Date Time Temp Pulse Resp B/P (MAP) Pulse Ox O2 Delivery O2 Flow Rate FiO2 02/08/17 09:20 Nasal Cannula 3.00 02/08/17 08:00 58 02/08/17 08:00 96.0 64 21 108/73 (85) 95 02/08/17 04:00 96.0 57 18 121/67 (85) 98 02/08/17 00:45 96.0 67 20 134/73 (93) 95 02/07/17 20:23 61 02/07/17 20:06 96.0 68 20 134/84 (101) 93 02/07/17 16:04 68 02/07/17 16:00 95.8 58 17 117/57 (77) 99 I/O 02/07/17 02/07/17 02/07/17 02/08/17 02/08/17 02/08/17 07:00 15:00 23:00 07:00 15:00 23:00 Intake Total 893 ml 700 ml 299 ml 343 ml Output Total 250 ml 100 ml 100 ml 100 ml Balance 643 ml 600 ml 199 ml 243 ml Intake Oral 240 ml 600 ml IV Total 653 ml 100 ml 299 ml 343 ml Output Urine Total 250 ml 100 ml 100 ml 100 ml # Bowel Movements 3 1 2 4 Result Diagram: 02/08/1718 02/08/17 0518 Imaging Last Impressions Chest X-Ray 02/03/17 1547 Signed Impressions: Service Date/Time: Friday, February 03, 2017 16:05 - CONCLUSION: 1. Marked cardiomegaly. 2. Left basilar consolidation/effusion. This actually appears slightly improved when compared to prior. 3. Right upper extremity PICC line with the tip projecting over the central venous system. Mt Alvarez MD Breast Ultrasound 02/03/17 0000 Signed Impressions: Service Date/Time: Friday, February 03, 2017 18:49 - CONCLUSION: Complex cystic lesion measuring up to 11.8 cm centered at the 12:00 position left breast. Given the clinical history of recent procedure in this area this could represent a noninfected or infected fluid collection. Given the complex internal architecture, percutaneous drainage will likely not be successful. Once the patient's condition permits, consider outpatient diagnostic mammogram and ultrasound followup. Gregory Bob MD ADDENDUM: Another consideration given the prior CT appearance and current imaging findings is an old hematoma. Gregory Bob MD Abdomen/Pelvis CT 02/03/17 0000 Signed Impressions: Service Date/Time: Friday, February 03, 2017 17:35 - CONCLUSION: 1. CT findings characteristic of right heart insufficiency with diffuse but stable anasarca in the visible soft tissues and leaves of the mesentery as well as a small amount of ascites. Intrahepatic IVC is markedly dilated. 2. Previously identified bilateral pleural effusions are significantly improved with only a small amount of fluid on the left. There is some persistent atelectasis in the left base. 3. Heart size remains prominent. 4. Otherwise stable. 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 Feliciano and Dr. Joy ff -plan for procedure Friday History of ischemic CMP- clinically not in failure BNP 2847 - was placed on both IV Lasix and bumex on admission -DC with HAR[facility]. 02/05 - started on entresto and aldactone 02/07 Continue life vest Oxygen when necessary Continue home medications Acute kidney injury - patient was overly diuresed- on both Lasix 40 IV bid and bumex 2 mg daily DC 02/05 - started on Aldactone/Entresto 02/07 by Cardiology - ff BMP Acute anemia- possibly bleed into breast tissue - s/p 2 units RBC 02/07 - h and h up - monitor A. fib- rate controlled Anticoagulated on Coumadin Subtherapeutic INR at 1.2, Hold coumadin with acute drop in H and H 02/07 Insulin-dependent diabetes mellitus Continue home Lantus SSI Hypertension Continue home medications COPD Duo nebs when necessary Continue home oxygen FEN Heart healthy diet Electrolytes: Replete when necessary d/w Dr. Tamayo d/w Dr. Feliciano- aware of this patient and states he spoke to Dr. Garcia about this -I will put in a formal consult to Dr.C Garcia- cardiothoracic surgery- Kate Arita MD Feb 08, 2017 12:58
[2017-02-08 13:39] LABS: BACTERIA, URINE MOD /hpf; BLOOD, URINE MOD (NEG); GLUCOSE,URINE NEG (NEG); HYALINE CAST, URINE 44 /lpf (RARE); KETONE, URINE NEG (NEG); MUCUS URINE FEW /lpf (OCC); NITRITE,URINE NEG (NEG); PH, URINE 5.5 (5.0-8.5); SQUAMOUS EPITHELIAL CELL URINE 2 /hpf (0-5); TRANSITIONAL EPI CELLS, URINE <1 /hpf; URINE COLOR YELLOW (YELLW/STRAW)
[2017-02-08 13:40] LABS: COMMENT (UR) CATH-CULTURE IND; CULTURE IF INDICATED CATH CULTURE IND
[2017-02-08 16:07] VITALS: BP 104/77; PULSE 53; RESP 17; TEMP 96.1; O2SAT 96
[2017-02-08 19:54] VITALS: BP 142/71; PULSE 61; RESP 19; TEMP 96.7; O2SAT 93
[2017-02-08] MEDS: SACUBITRIL/VALSARTAN 49 MG-51 MG TAB PO SCH (20:12)
[2017-02-08] MEDS: ACETAMINOPHEN 325 MG TAB PO PRN (20:20)
[2017-02-09] VITALS (7 sets, daily range): BP systolic 91–140; BP diastolic 53–79; PULSE 56–68; RESP 18–57; TEMP 95.3–97; O2SAT 90–95
[2017-02-09 05:35] LABS: AUTOMATED NEUTROPHIL # 4.3 TH/MM3 (1.8-7.7); BASOPHIL # 0.1 TH/MM3 (0-0.2); BASOPHIL % 1.2 % (0.0-2.0); EOSINOPHIL # 0.1 TH/MM3 (0-0.4); HEMATOCRIT 32.1 % (35.0-46.0); LYMPHOCYTE # 0.8 TH/MM3 (1.0-4.8); MEAN CELL VOLUME 87.3 FL (80.0-100.0); MEAN CORPUSCULAR HEMOGLOBIN 28.1 PG (27.0-34.0); MEAN CORPUSCULAR HGB CONC 32.2 % (32.0-36.0); MONO % 17.9 % (0.0-8.0); NEUT % 66.9 % (16.0-70.0); PLATELET COUNT 325 TH/MM3 (150-450); RED BLOOD COUNT 3.68 MIL/MM3 (4.00-5.30); RED CELL DISTRIBUTION WIDTH 24.9 % (11.6-17.2); WHITE BLOOD COUNT 6.5 TH/MM3 (4.0-11.0)
[2017-02-09 05:41] LABS: HEMO FLAGS AUTO DIFF
[2017-02-09 05:48] LABS: INTERNATIONAL NORMALIZED RATIO 1.4 RATIO; PROTHROMBIN TIME - PATIENT 15.9 SEC (9.8-11.6)
[2017-02-09 06:24] LABS: ANION GAP 10 MEQ/L (5-15); AST (GOT) 22 U/L (15-37); BICARBONATE 22.9 MEQ/L (21.0-32.0); BLOOD UREA NITROGEN 24 MG/DL (7-18); CHLORIDE 107 MEQ/L (98-107); GLOMERULAR FILTRATION RATE 37 ML/MIN (>89); POTASSIUM 4.3 MEQ/L (3.5-5.1); SODIUM (NA) 140 MEQ/L (136-145)
[2017-02-09 06:29] LABS: ALKALINE PHOSPHATASE 114 U/L (45-117); ALT (GPT) 11 U/L (10-53)
[2017-02-09 06:31] LABS: SCAN/DIFF AUTO DIFF CONFIRMED
[2017-02-09] MEDS: INSULIN ASPART SUPPLEMENTAL SCALE SQ SCH ×4 (08:00→21:00)
[2017-02-09] MEDS: SODIUM CHLORIDE 0.9% FLUSH 10 ML FLUSH IV FLUSH SCH ×2 (09:00→20:25)
[2017-02-09] MEDS: AMIODARONE 200 MG TAB PO SCH (09:26)
[2017-02-09] MEDS: METOPROLOL SUCCINATE 50 MG EXTENDED RELEASE TAB PO SCH (09:26)
[2017-02-09] MEDS: SPIRONOLACTONE 25 MG TAB PO SCH (09:26)
[2017-02-09] MEDS: FERROUS SULFATE 325 MG (65 MG ELEMENTAL IRON) TAB PO SCH ×2 (09:26→20:23)
[2017-02-09] MEDS: amLODIPine BESYLATE 5 MG TAB PO SCH (09:27)
[2017-02-09] MEDS: SACUBITRIL/VALSARTAN 49 MG-51 MG TAB PO SCH ×2 (09:27→20:23)
--- NOTE | 2017-02-09 13:43 | HHI.PR ---
Subjective Remarks no nausea or vomiting breast discomfort left- slightly better increase generalized swelling on exam Objective Vitals Vital Signs Date Time Temp Pulse Resp B/P (MAP) Pulse Ox O2 Delivery O2 Flow Rate FiO2 02/09/17 12:00 95.3 58 20 118/60 (79) 90 02/09/17 08:00 96.3 57 57 121/53 (75) 95 02/09/17 07:06 56 02/09/17 04:46 96.9 59 18 125/56 (79) 94 02/09/17 00:42 97.0 68 18 140/65 (90) 94 02/08/17 20:23 Nasal Cannula 3.00 02/08/17 19:54 96.7 61 19 142/71 (94) 93 02/08/17 16:07 96.1 53 17 104/77 (86) 96 I/O 02/08/17 02/08/17 02/08/17 02/09/17 02/09/17 02/09/17 07:00 15:00 23:00 07:00 15:00 23:00 Intake Total 343 ml 1353 ml 120 ml Output Total 100 ml 475 ml 150 ml Balance 243 ml 878 ml -30 ml Intake Oral 720 ml 120 ml IV Total 343 ml 633 ml Output Urine Total 100 ml 475 ml 150 ml # Bowel Movements 4 1 0 Result Diagram: 02/09/17 0514 02/09/17 0514 Imaging Last Impressions Chest X-Ray 02/03/17 1547 Signed Impressions: Service Date/Time: Friday, February 03, 2017 16:05 - CONCLUSION: 1. Marked cardiomegaly. 2. Left basilar consolidation/effusion. This actually appears slightly improved when compared to prior. 3. Right upper extremity PICC line with the tip projecting over the central venous system. Mt Alvarez MD Breast Ultrasound 02/03/17 0000 Signed Impressions: Service Date/Time: Friday, February 03, 2017 18:49 - CONCLUSION: Complex cystic lesion measuring up to 11.8 cm centered at the 12:00 position left breast. Given the clinical history of recent procedure in this area this could represent a noninfected or infected fluid collection. Given the complex internal architecture, percutaneous drainage will likely not be successful. Once the patient's condition permits, consider outpatient diagnostic mammogram and ultrasound followup. Gregory Bob MD ADDENDUM: Another consideration given the prior CT appearance and current imaging findings is an old hematoma. Gregory Bob MD Abdomen/Pelvis CT 02/03/17 0000 Signed Impressions: Service Date/Time: Friday, February 03, 2017 17:35 - CONCLUSION: 1. CT findings characteristic of right heart insufficiency with diffuse but stable anasarca in the visible soft tissues and leaves of the mesentery as well as a small amount of ascites. Intrahepatic IVC is markedly dilated. 2. Previously identified bilateral pleural effusions are significantly improved with only a small amount of fluid on the left. There is some persistent atelectasis in the left base. 3. Heart size remains prominent. 4. Otherwise stable. 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 Feliciano and Dr. Joy ff -plan for procedure Friday History of ischemic CMP- BNP 2847 - was placed on both IV Lasix and bumex on admission -DC with HARVEY. 02/05 - on amiodarone, Metoprolol, amlodipine - started on entresto and aldactone 02/08 Continue life vest Oxygen when necessary Continue home medications - give x 1 Bumex img IV x 1 now Acute kidney injury- worsening renal functions- clinically appears anasarcous- + periorbital edema, + LE edema - patient was overly diuresed- on both Lasix 40 IV bid and bumex 2 mg daily DC 02/05 - started on Aldactone/Entresto 02/08 by Cardiology - ff BMP- consult nephrology - give 1 mg IV bumex now - nephrology consult Right knee swelling on exam- + effusion- not hot on exam possible septic arthritis -patient already on antibiotics -consider CT of the knee in am and arthrocentesis if + fluid -d/w staff to take out leg bag Pyuria-- e coli on previous cultures- not treated - catheterized specimen - start Levaquin 250 mg po daily - ff final C and S Acute anemia- possibly bleed into breast tissue- H and H improved - s/p 2 units RBC 02/07 - monitor A. fib- rate controlled Anticoagulated on Coumadin Subtherapeutic INR at 1.2, Hold coumadin with acute drop in H and H 02/07 - for procedure Friday - nox post procedure Insulin-dependent diabetes mellitus Continue home Lantus SSI Hypertension Continue home medications COPD Duo nebs when necessary Continue home oxygen FEN Heart healthy diet Electrolytes: Replete when necessary Kate Layton MD Feb 09, 2017 13:43
[2017-02-09] MEDS: LEVOFLOXACIN 250 MG TAB PO SCH (16:11)
[2017-02-09] MEDS ORDERED: BUMETANIDE INJ 1 MG/4 ML VIAL IV PUSH ONE (16:15)
[2017-02-10] VITALS (12 sets, daily range): BP systolic 89–131; BP diastolic 46–62; PULSE 56–64; RESP 16–21; TEMP 95.6–97; O2SAT 90–98
[2017-02-10 06:37] LABS: BICARBONATE 22.2 MEQ/L (21.0-32.0); POTASSIUM 4.4 MEQ/L (3.5-5.1)
[2017-02-10] MEDS: INSULIN ASPART SUPPLEMENTAL SCALE SQ SCH ×3 (08:00→17:00)
--- NOTE | 2017-02-10 08:06 | MB ---
cc: PEARL WALTERS DATE OF CONSULTATION 02/07/17 DATE OF 1945 HISTORY OF PRESENT ILLNESS A 71-year-old female known to our service, under removal of AICD, laser extraction of the lead done 12/18/2016 after being diagnosed with sepsis. The patient presented on this admission with increased swelling of her left breast. She reported a 50 pound weight gain with bilateral lower extremity, significant abdominal swelling, shortness of breath. The left breast was very swollen where her pacemaker had been removed. She grew MSSA on her blood cultures on her last admission and was discharged with home infusion of ceft____ which she completed 01/29/2017. The complaint of the left breast being very painful to palpation. CT of the abdomen and pelvis showed some stable anasarca with small amount of ascites, also some bilateral small effusions. The breast ultrasound showed a cystic lesion measuring 11.8 cm in the left breast at 12 o'clock. We were consulted for possible fluid collection versus hematoma. Her hemoglobin was 7.4 and 24. PAST MEDICAL HISTORY The past medical history includes chronic atrial fibrillation on Coumadin, COPD, CHF, diabetes mellitus, hypertension. PAST SURGICAL HISTORY Surgeries include breast surgery, pacemaker placement with removal for infection, removal of AICD, laser extraction, appendectomy, cholecystectomy, hysterectomy. ALLERGIES INCLUDE BENAZEPRIL, PENICILLIN, QUINAPRIL. FAMILY HISTORY Noncontributory. SOCIAL HISTORY Quit smoking 2 months ago, has been smoking half-a-pack since 1968. Occasional alcohol. REVIEW OF SYSTEMS As above in HPI, otherwise 12 systems unremarkable PHYSICAL EXAMINATION VITAL SIGNS: On exam blood pressure 120/60, heart rate of 58, afebrile. GENERAL: Patient is awake, sitting up in the chair. HEENT: Head is normocephalic, atraumatic. She does have some swelling around both eyelids. NECK: Supple. No JVD. HEART: Heart sounds S1-S2, irregular rate and rhythm. No audible rubs or gallops. LUNGS: Clear to auscultation. No wheezes, rales or rhonchi. BREASTS: The left breast area is very erythemic, very swollen and tender to the touch. ABDOMEN: Abdomen is distended. She has some ascites. EXTREMITIES: She has swelling to her lower extremities with +2 edema up to the thighs. LABORATORY FINDINGS Shows hemoglobin 7.4, hematocrit 23, white cell count of 4.8, platelet count 221, sodium 139, potassium 4.1, BUN 17, creatinine 1.55, INR is currently 1.5. She is currently not on any anticoagulation secondary to her anemia. IMPRESSION Again, this is a 71-year-old female known to our service with extensive complex cystic lesion left breast area with probable fluid collection or old hematoma. The concern is for her hemoglobin of 7.4 and 24. Her Coumadin is on hold, INR is 1.5. PLAN She will be for drainage of left chest hematoma on Friday. Would hold any blood thinners. Her current blood cultures are negative, however, she did have some E-coli in the urine, ID is following. Recommendations will follow after her surgery on Friday. Dictated by: SHANNA Baer MD CAROL Delaney/CHRISTIANE /6:25 PM /8:09 AM
[2017-02-10] MEDS: METOPROLOL SUCCINATE 50 MG EXTENDED RELEASE TAB PO SCH (09:44)
[2017-02-10] MEDS: LEVOFLOXACIN 250 MG TAB PO SCH (09:47)
[2017-02-10] MEDS: amLODIPine BESYLATE 5 MG TAB PO SCH (09:48)
[2017-02-10] MEDS: FERROUS SULFATE 325 MG (65 MG ELEMENTAL IRON) TAB PO SCH ×2 (09:48→21:00)
[2017-02-10] MEDS: AMIODARONE 200 MG TAB PO SCH (09:48)
[2017-02-10] MEDS: SODIUM CHLORIDE 0.9% FLUSH 10 ML FLUSH IV FLUSH SCH (09:48)
[2017-02-10] MEDS: SPIRONOLACTONE 25 MG TAB PO SCH (09:48)
[2017-02-10] MEDS: SACUBITRIL/VALSARTAN 49 MG-51 MG TAB PO SCH ×2 (09:56→21:00)
[2017-02-10] MEDS ORDERED: LIDOCAINE HCL 1% PF 5 ML AMPULE OTHER ONE (12:00)
[2017-02-10] MEDS ORDERED: PROPOFOL 200 MG/20 ML AMP IV ONE (12:00)
[2017-02-10] MEDS ORDERED: LACTATED RINGER'S 1000 ML INJ 1,000 ML IV ONE (12:00)
[2017-02-10] MEDS ORDERED: MIDAZOLAM HCL 2 MG/2 ML VIAL IV ONE (12:00)
[2017-02-10] MEDS ORDERED: ROCURONIUM INJ 50 MG/5 ML SYRINGE IV PUSH ONE (12:00)
[2017-02-10] MEDS ORDERED: PHENYLEPH/NS 1000 MCG/10 ML SYR IV ONE (12:00)
[2017-02-10] MEDS ORDERED: ONDANSETRON HCL 4 MG/2 ML VIAL IV PUSH ONE (12:00)
--- NOTE | 2017-02-10 14:56 | HHI.PR ---
Subjective Remarks looking forward to surgery today no pain complaints right knee swelling- improved Objective Vitals Vital Signs Date Time Temp Pulse Resp B/P (MAP) Pulse Ox O2 Delivery O2 Flow Rate FiO2 02/10/17 09:58 98 Nasal Cannula 3.00 02/10/17 08:00 95.6 64 16 131/62 (85) 98 02/10/17 05:44 102/58 (73) Automatic Cuff 02/10/17 04:00 97.0 63 21 89/46 (60) 93 02/10/17 00:00 96.8 62 20 100/46 (64) 93 02/09/17 20:00 93 Nasal Cannula 3.00 02/09/17 20:00 96.9 61 19 91/58 (69) 93 02/09/17 20:00 61 02/09/17 15:43 96.5 57 20 121/79 (93) 94 I/O 02/09/17 02/09/17 02/09/17 02/10/17 02/10/17 02/10/17 07:00 15:00 23:00 07:00 15:00 23:00 Intake Total 120 ml 720 ml 120 ml 120 ml Output Total 150 ml 250 ml 150 ml Balance -30 ml 720 ml -130 ml -30 ml Intake Oral 120 ml 720 ml 120 ml 120 ml Output Urine Total 150 ml 250 ml 150 ml # Bowel Movements 0 1 0 Result Diagram: 02/09/17 0514 02/10/17 0540 Imaging Last Impressions Chest X-Ray 02/03/17 1547 Signed Impressions: Service Date/Time: Friday, February 03, 2017 16:05 - CONCLUSION: 1. Marked cardiomegaly. 2. Left basilar consolidation/effusion. This actually appears slightly improved when compared to prior. 3. Right upper extremity PICC line with the tip projecting over the central venous system. Mt Alvarez MD Breast Ultrasound 02/03/17 0000 Signed Impressions: Service Date/Time: Friday, February 03, 2017 18:49 - CONCLUSION: Complex cystic lesion measuring up to 11.8 cm centered at the 12:00 position left breast. Given the clinical history of recent procedure in this area this could represent a noninfected or infected fluid collection. Given the complex internal architecture, percutaneous drainage will likely not be successful. Once the patient's condition permits, consider outpatient diagnostic mammogram and ultrasound followup. Gregory Bob MD ADDENDUM: Another consideration given the prior CT appearance and current imaging findings is an old hematoma. Gregory Bob MD Abdomen/Pelvis CT 02/03/17 0000 Signed Impressions: Service Date/Time: Friday, February 03, 2017 17:35 - CONCLUSION: 1. CT findings characteristic of right heart insufficiency with diffuse but stable anasarca in the visible soft tissues and leaves of the mesentery as well as a small amount of ascites. Intrahepatic IVC is markedly dilated. 2. Previously identified bilateral pleural effusions are significantly improved with only a small amount of fluid on the left. There is some persistent atelectasis in the left base. 3. Heart size remains prominent. 4. Otherwise stable. Mt Alvarez MD Objective Remarks awake and alert, no acute distress, periorbital swelling anicteric lungs- no rales irregular rhythm left breast enlarged and swollen and less indurated, softer on today's exam abdomen soft, nontender extremities- right knee swelling- decreased. 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 Feliciano and Dr. Joy ff -plan for procedure today History of ischemic CMP- BNP 2847 - was placed on both IV Lasix and bumex on admission -DC with HARVEY. 02/05 - on amiodarone, Metoprolol, amlodipine - started on entresto and aldactone 02/08 Continue life vest Oxygen when necessary Continue home medications - give x 1 Bumex img IV x 1 now 02/09 Acute kidney injury- worsening renal functions- clinically appears anasarcous- + periorbital edema, + LE edema - patient was overly diuresed- on both Lasix 40 IV bid and bumex 2 mg daily DC 02/05 - started on Aldactone/Entresto 02/08 by Cardiology - ff BMP-- - nephrology consult- gentle diuresis Right knee swelling on exam- + effusion-- decrease c.w yesterday - not hot on exam -patient already on antibiotics -consider CT of the knee in am - -d/w staff to take out leg bag Pyuria-- E coli - catheterized specimen E coli i on previous cultures- not treated - start Levaquin 250 mg po daily- aymptomatic- will give x 3 days then DC - d/w Dr. Tamayo Acute anemia- possibly bleed into breast tissue- H and H improved - s/p 2 units RBC 02/07 - monitor A. fib- rate controlled Anticoagulated on Coumadin Subtherapeutic INR at 1.2, Hold coumadin with acute drop in H and H 02/07 - for procedure today - Lovenox post procedure Insulin-dependent diabetes mellitus -readings good SSI - NPO for procedure- BS 70s - give D50 25 cc x 1 Hypertension Continue home medications COPD Duo nebs when necessary Continue home oxygen FEN Heart healthy diet Electrolytes: Replete when necessary Kate Layton MD Feb 10, 2017 14:56
[2017-02-10] MEDS ORDERED: DEXTROSE 50% IN WATER 50 ML VIAL(D50) IV PUSH ONE (15:15)
[2017-02-10] MEDS ORDERED: ceFAZolin 2 GM PREMIX 50 ML ONE (16:42)
[2017-02-10] MEDS ORDERED: Post-op Orders (for Pharmacy) MISC XX ONE (17:45)
[2017-02-10] MEDS ORDERED: SUGAMMADEX SODIUM 200 MG/2 ML VIAL IV PUSH ONE ×2 (17:45)
[2017-02-10] MEDS ORDERED: ONDANSETRON HCL 4 MG/2 ML VIAL IV PUSH PRN ×2 (17:45→21:15)
[2017-02-10] MEDS ORDERED: SODIUM CHLORIDE 0.9% FLUSH 10 ML FLUSH IV FLUSH PRN ×2 (17:45→21:15)
--- NOTE | 2017-02-10 17:50 | PD.OP ---
cc: Sarai Garcia MD; Birgit Feliciano MD Operative Report Date of Surgery: Feb 10, 2017 Preoperative Diagnosis: (1) Hematoma (nontraumatic) of breast Postoperative Diagnosis: same Procedure: Incision and drainage of left breast hematoma Anesthesia: General Surgeon: Sarai Garcia Die Inspector(s): Gregory KIRK Operation and Findings: After adequate anesthesia, the patient was prepped and draped in the usual manner. The previous AICD pocket incision was opened and ~600ml of brown tinged serous fluid was drained from the chest wall behind and involving the left breast. The fluid was submitted for cultures. The wound was copiously irrigated. A 19F Frantz drain was positioned and secured to the skin with a 3-0 Nylon suture. The wound was irrigated and infiltrated with 0.5% Marcaine. The wound was closed in 2 layers and the patient transferred to the PACU in stable condition. Sarai Garcia MD Feb 10, 2017 17:50
[2017-02-10] MEDS ORDERED: DO NOT ADM ANY ANTICOAGULANT DRUGS PRN (18:29)
[2017-02-10] MEDS ORDERED: RESP: ALBUTEROL CONC 2.5 MG/0.5 ML NEB ONE (18:33)
--- NOTE | 2017-02-10 18:47 | PD.CONS ---
HPI Service Nephrology Consult Requested By Dr. Layton Reason for Consult Acute renal failure Primary Care Physician Emily De La Cruz MD History of Present Illness Patient is a 71-year-old female with history of diabetes, hypertension, she had a pacemaker/AICD and had a lead infection this was extracted by later she developed hematoma and complex lesion of the left breast , patient is in recovery room, she is noted to have gradual decline in her knee function, creatinine is rising baseline was 0.9 and now it is about 1.7. He has history of endocarditis which was treated with antibiotic cefazolin. Patient is seen in recovery and has pulmonary edema. Review of Systems ROS Limitations: Clinical Condition Past Family Social History Allergies: Coded Allergies: penicillin G (Unverified Allergy, Severe, rash, 12/31/16) benazepril (Unverified Allergy, Mild, 12/31/16) HUMBLE inhibitor angioedema, swelling of the face lips and anterior tongue captopril (Unverified Allergy, Mild, 12/31/16) HUMBLE inhibitor angioedema, swelling of the face lips and anterior tongue enalaprilat (Unverified Allergy, Mild, 12/31/16) HUMBLE inhibitor angioedema, swelling of the face lips and anterior tongue fosinopril (Unverified Allergy, Mild, 12/31/16) HUMBLE inhibitor angioedema, swelling of the face lips and anterior tongue lisinopril (Unverified Allergy, Mild, 12/31/16) HUMBLE inhibitor angioedema, swelling of the face lips and anterior tongue quinapril (Unverified Allergy, Mild, 12/31/16) HUMBLE inhibitor angioedema, swelling of the face lips and anterior tongue Uncoded Allergies: NON COMPATIBLE PACEMAKER (Adverse Reaction, Severe, MRI PRECAUTION / PACEMAKER, 11/03/14) MRI PRECAUTION. PACEMAKER Past Medical History Diabetes Hypertension Atrial fibrillation AICD Infected lead. Extraction MSSA infection treated Atrial fibrillation on anticoagulation Past Surgical History breast surgery ppm placement right breast lumpectomy appendectomy cholecystectomy hysterectomy Reported Medications Reported Meds & Active Scripts Active Ferrous Sulfate 325 Mg (65 Mg Iron) Tablet 325 Mg PO BID Bumetanide 2 Mg Tab 2 Mg PO DAILY K-Tab (Potassium Chloride) 10 Meq Tab 10 Meq PO BID Epinephrine Inj 1 Mg/Ml (1 Ml) Inj 0.3 Mg IV PUSH ONCE PRN Oxygen (O2) (Miscellaneous Medication) Inha Liter JENNIFER.CANULA CONTINUOUS Oxygen Concentrator Portable Gaseous 2 L/min via Nasal Canula Continuous For 99 months Defibrillator Jacket (Device) 1 Ea Device Ea EXTERNAL ONCE Energy = 150 Joules; VT Threshold = 150 BPM; VF Threshold = 200 BPM Use up to 90 days only Reported Lantus Inj (Insulin Glargine) 1,000 Unit/10 Ml Vial 27 Units SQ HS PRN Warfarin 4 Mg Tab 4 Mg PO DAILY [place] (Hydrocodone-Acetaminophen) 5-325 mg Tab 1 Tab PO BID PRN Enalapril (Enalapril Maleate) 10 Mg Tab 10 Mg PO BID Metoprolol Succinate ER 24 HR (Metoprolol Succinate) 50 Mg Tab 50 Mg PO DAILY Amlodipine (Amlodipine Besylate) 5 Mg Tab 5 Mg PO DAILY Amiodarone (Amiodarone HCl) 200 Mg Tab 200 Mg PO DAILY Active Ordered Medications Current Medications Medications (Trade) Dose Ordered Sig/Juan Route Start Time Stop Time Status Last Admin (Narcan Inj) 0.4 mg UNSCH PRN IV PUSH 02/03/17 21:30 (Cordarone) 200 mg DAILY PO 02/04/17 09:00 02/10/17 09:48 (Norvasc) 5 mg DAILY PO 02/04/17 09:00 02/10/17 09:48 (Ferrous Sulfate) 325 mg BID PO 02/04/17 09:00 02/10/17 09:48 (Levemir Inj) 27 units HS PRN SQ 02/04/17 04:45 (Toprol Xl) 50 mg DAILY PO 02/04/17 09:00 02/10/17 09:44 (Glucagon Inj) 1 mg UNSCH PRN OTHER 02/04/17 04:30 (NovoLOG SUPPLEMENTAL SCALE) 1 ACHS SLIDING SCALE SQ 02/04/17 08:00 (Duoneb Neb) 1 ampule Q4HR NEB PRN NEB 02/04/17 04:45 (Tylenol) 650 mg Q4H PRN PO 02/04/17 12:45 02/08/17 20:20 (Entresto 49-51 Mg) 1 tab BID PO 02/08/17 21:00 02/10/17 09:56 (Aldactone) 25 mg DAILY PO 02/08/17 09:00 02/10/17 09:48 (NS Flush) 2 ml BID IV FLUSH 02/07/17 21:00 02/10/17 09:48 (NS Flush) 2 ml UNSCH PRN IV FLUSH 02/07/17 18:30 Cefazolin Sodium 500 mg/Sodium Chloride 505 ml @ 0 mls/hr PERMASTONE APPLICATOR IRRIGATION 02/07/17 18:30 02/14/17 18:29 02/10/17 17:46 Cefazolin Sodium/ Dextrose 50 ml @ 150 mls/hr PERMASTONE APPLICATOR IV 02/07/17 18:30 02/14/17 18:29 (Hibiclens 4% Top Soln) 1 applic PERMASTONE APPLICATOR TOPICAL 02/07/17 18:30 02/14/17 18:29 (D50w (Vial) Inj) 50 ml UNSCH PRN IV PUSH 02/07/17 18:30 (Levaquin) 250 mg DAILY PO 02/09/17 14:00 02/10/17 09:47 (NS Flush) 2 ml UNSCH PRN IV FLUSH 02/10/17 17:45 UNV (NS Flush) 2 ml BID IV FLUSH 02/10/17 21:00 UNV (Zofran Inj) 4 mg Q4H PRN IV PUSH 02/10/17 17:45 UNV Cefazolin Sodium 1000 mg/Sodium Chloride 100 ml @ 200 mls/hr Q8H IV 02/10/17 17:45 02/11/17 10:14 UNV (Post-op Orders (for Pharmacy)) STAT ONCE XX 02/10/17 17:45 02/10/17 17:46 UNV Family History Noncontributory Social History Denies smoking or alcohol Physical Exam Vital Signs Vital Signs Date Time Temp Pulse Resp B/P (MAP) Pulse Ox O2 Delivery O2 Flow Rate FiO2 02/10/17 12:00 96.4 57 16 116/59 (78) 95 02/10/17 09:58 98 Nasal Cannula 3.00 02/10/17 08:00 95.6 64 16 131/62 (85) 98 02/10/17 05:44 102/58 (73) Automatic Cuff 02/10/17 04:00 97.0 63 21 89/46 (60) 93 02/10/17 00:00 96.8 62 20 100/46 (64) 93 02/09/17 20:00 93 Nasal Cannula 3.00 02/09/17 20:00 96.9 61 19 91/58 (69) 93 02/09/17 20:00 61 Physical Exam GENERAL: Well-nourished, well-developed patient. SKIN: Warm and dry. HEAD: Normocephalic. EYES: No scleral icterus. No injection or drainage. NECK: Supple, trachea midline. No JVD or lymphadenopathy. CARDIOVASCULAR: Irregular, chest wall drain in place RESPIRATORY: Bilateral Rales and rhonchi GASTROINTESTINAL: Abdomen soft, non-tender, nondistended. EXTREMITIES: No cyanosis, 2+ edema. NEUROLOGICAL: Recovering from anesthesia with sedation Laboratory Laboratory Tests Test 02/10/17 05:40 Blood Urea Nitrogen 28 Creatinine 1.77 Random Glucose 82 Calcium Level 8.4 Sodium Level 140 Potassium Level 4.4 Chloride Level 110 Carbon Dioxide Level 22.2 Anion Gap 8 Estimat Glomerular Filtration Rate 34 B-Type Natriuretic Peptide 4055 Date/Time Source Procedure Growth Status 02/04/17 11:27 Blood Peripheral Aerobic Blood Culture - Final NO GROWTH IN 5 DAYS Complete 02/04/17 11:27 Blood Peripheral Anaerobic Blood Culture - Final NO GROWTH IN 5 DAYS Complete 02/08/17 13:05 Urine Catheterized Urine Urine Culture - Preliminary Gram Negative Donato Resulted Result Diagram: 02/09/17 0514 02/10/17 0540 Imaging Last Impressions Chest X-Ray 02/03/17 1547 Signed Impressions: Service Date/Time: Friday, February 03, 2017 16:05 - CONCLUSION: 1. Marked cardiomegaly. 2. Left basilar consolidation/effusion. This actually appears slightly improved when compared to prior. 3. Right upper extremity PICC line with the tip projecting over the central venous system. Mt Alvarez MD Breast Ultrasound 02/03/17 0000 Signed Impressions: Service Date/Time: Friday, February 03, 2017 18:49 - CONCLUSION: Complex cystic lesion measuring up to 11.8 cm centered at the 12:00 position left breast. Given the clinical history of recent procedure in this area this could represent a noninfected or infected fluid collection. Given the complex internal architecture, percutaneous drainage will likely not be successful. Once the patient's condition permits, consider outpatient diagnostic mammogram and ultrasound followup. Gregory Bob MD ADDENDUM: Another consideration given the prior CT appearance and current imaging findings is an old hematoma. Gregory Bob MD Abdomen/Pelvis CT 02/03/17 0000 Signed Impressions: Service Date/Time: Friday, February 03, 2017 17:35 - CONCLUSION: 1. CT findings characteristic of right heart insufficiency with diffuse but stable anasarca in the visible soft tissues and leaves of the mesentery as well as a small amount of ascites. Intrahepatic IVC is markedly dilated. 2. Previously identified bilateral pleural effusions are significantly improved with only a small amount of fluid on the left. There is some persistent atelectasis in the left base. 3. Heart size remains prominent. 4. Otherwise stable. Mt Alvarez MD Assessment and Plan Problem List: (1) HARVEY (acute kidney injury) ICD Codes: N17.9 - Acute kidney failure, unspecified Status: Acute Plan: Patient has congestive heart failure and have ordered Lasix 40 mg IV now and every 12 hours It appears that her recent hematoma and possible infection as led to compromise , she has gram-negative rods in the urine started on Levaquin and is on cefazolin In the renal insufficiency Check urine sodium, creatinine urine eosinophils Urine osmolality BMP Avoid nephrotoxins (2) Hematoma (nontraumatic) of breast ICD Codes: N64.89 - Other specified disorders of breast Plan: Surgically operated on (3) Bilateral lower extremity edema ICD Codes: R60.0 - Bilateral lower extremity edema Status: Acute Plan: Due to congestive heart failure (4) CHF (congestive heart failure) ICD Codes: I50.9 - CHF (congestive heart failure) Status: Chronic Plan: With acute decompensation Lasix ordered after surgery (5) UTI (urinary tract infection) ICD Codes: N39.0 - UTI (urinary tract infection) Status: Acute Plan: Gram-negative rods on cefazolin And Levaquin Problem Qualifiers (1) CHF (congestive heart failure): Qualified Codes: I50.33 - Acute on chronic diastolic (congestive) heart failure Laurel Love MD Feb 10, 2017 18:47
[2017-02-10] MEDS ORDERED: FUROSEMIDE 20 MG/2 ML VIAL ONE (18:57)
[2017-02-10] MEDS: FUROSEMIDE 40 MG/4 ML VIAL IV PUSH SCH (19:00)
--- NOTE | 2017-02-10 20:30 | RADRPT ---
EXAM DATE/TIME: 02/10/2017 19:22 [facility] COMPARISON: CHEST SINGLE AP, February 03, 2017, 16:05. INDICATIONS : Shortness of breath. MEDICAL HISTORY : Cardiovascular disease. SURGICAL HISTORY : Pacemaker placement and removal. ENCOUNTER: Initial ACUITY: 1 day PAIN SCORE: Non-responsive. LOCATION: Bilateral chest FINDINGS: Multiple electronic devices and leads are seen over the chest. The heart size is enlarged. There is i ncreased density in the mid to lower lungs bilaterally with silhouetting the hemidiaphragms. There is linear suspected atelectasis seen in the right upper lung. There is a PICC line in place from the ri t arm. CONCLUSION: Suspected bibasilar areas of consolidation or atelectasis with probable effusions. Overall, the aerat ion of the lungs is worse when compared to the prior exam. Gregory Perry MD on February 10, 2017 at 20:27 Board Certified Radiologist. This report was verified electronically.
--- NOTE | 2017-02-10 20:37 | PD.CONS ---
[facility] Service Critical Care Medicine Consult Requested By Dr. King Reason for Consult resp failure Primary Care Physician Emily De La Cruz MD History of Present Illness This is a 71-year-old Afro[place] female. Date of admission 02/04/2017. Past medical history includes diastolic congestive heart failure, COPD, chronic atrial fibrillation, diabetes, hypertension and history of MSSA infection on cefazolin. Patient presents to [facility] initially on 02/04 with left breast swelling. In November/2016, patient was diagnosed with endocarditis and AICD infection. At that time, Pacemaker removed . Since that time she's had increasing swelling in her left breast and currently has an abscess of the location 11.8 cm in size. She also complained of Shortness of breath. This is associated with a self-reported 50 pound weight gain with bilateral lower extremity edema and significant stomach swelling. She also reports shortness of breath. She was treated with cefazolin at home include 01/29/2017. After cessation of treatment, she noted The patient reports a significant increase in her left breast swelling over the past 2-3 days. She states the area is tender to palpation and painful. She does not have a leukocytosis. Breast ultrasound showed a complex cystic lesion measuring up to 11.8 cm in the left breast that could represent a fluid collection or old hematoma. Today in 02/10, patient ID of her left breast by Dr. Joy. 300 crystalloid. EBL 50. Urine output 60. Patient received 40 mg torsemide IV post procedure. Her oxygenation requirements increasing currently on BiPAP. She is currently unresponsive when seen in [facility]. She'll be intubated at the present time Review of Systems ROS Limitations: Altered Mental Status Past Family Social History Allergies: Coded Allergies: penicillin G (Unverified Allergy, Severe, rash, 12/31/16) benazepril (Unverified Allergy, Mild, 12/31/16) HUMBLE inhibitor angioedema, swelling of the face lips and anterior tongue captopril (Unverified Allergy, Mild, 12/31/16) HUMBLE inhibitor angioedema, swelling of the face lips and anterior tongue enalaprilat (Unverified Allergy, Mild, 12/31/16) HUMBLE inhibitor angioedema, swelling of the face lips and anterior tongue fosinopril (Unverified Allergy, Mild, 12/31/16) HUMBLE inhibitor angioedema, swelling of the face lips and anterior tongue lisinopril (Unverified Allergy, Mild, 12/31/16) HUMBLE inhibitor angioedema, swelling of the face lips and anterior tongue quinapril (Unverified Allergy, Mild, 12/31/16) HUMBLE inhibitor angioedema, swelling of the face lips and anterior tongue Uncoded Allergies: NON COMPATIBLE PACEMAKER (Adverse Reaction, Severe, MRI PRECAUTION / PACEMAKER, 11/03/14) MRI PRECAUTION. PACEMAKER Past Medical History History of MA with 3 stents Coronary artery disease Left eye cataract Chronic atrial fibrillation Chronic diastolic heart failure Severe TR COPD Diabetes mellitus Hypertension History of MSSA infection Past Surgical History Pacemaker since removal/AICD currently LifeVest in November 2016 Left breast abscess drainage Appendectomy Cholecystectomy Hysterectomy Reported Medications Active Ferrous Sulfate 325 Mg (65 Mg Iron) Tablet 325 Mg PO BID Bumetanide 2 Mg Tab 2 Mg PO DAILY K-Tab (Potassium Chloride) 10 Meq Tab 10 Meq PO BID Epinephrine Inj 1 Mg/Ml (1 Ml) Inj 0.3 Mg IV PUSH ONCE PRN Oxygen (O2) (Miscellaneous Medication) Inha Liter JENNIFER.CANULA CONTINUOUS Oxygen Concentrator Portable Gaseous 2 L/min via Nasal Canula Continuous For 99 months Defibrillator Jacket (Device) 1 Ea Device Ea EXTERNAL ONCE Energy = 150 Joules; VT Threshold = 150 BPM; VF Threshold = 200 BPM Use up to 90 days only Reported Lantus Inj (Insulin Glargine) 1,000 Unit/10 Ml Vial 27 Units SQ HS PRN Warfarin 4 Mg Tab 4 Mg PO DAILY [place] (Hydrocodone-Acetaminophen) 5-325 mg Tab 1 Tab PO BID PRN Enalapril (Enalapril Maleate) 10 Mg Tab 10 Mg PO BID Metoprolol Succinate ER 24 HR (Metoprolol Succinate) 50 Mg Tab 50 Mg PO DAILY Amlodipine (Amlodipine Besylate) 5 Mg Tab 5 Mg PO DAILY Amiodarone (Amiodarone HCl) 200 Mg Tab 200 Mg PO DAILY Active Ordered Medications reviewed in emr Family History M - cardiac dz F - DM Social History One half pack per days since 1968 quit 2 months ago. Occasional EtOH. No IV drug use Physical Exam Vital Signs Vital Signs Date Time Temp Pulse Resp B/P (MAP) Pulse Ox O2 Delivery O2 Flow Rate FiO2 02/10/17 19:45 57 22 131/58 (82) 91 Bi-Pap 70 02/10/17 19:30 60 22 131/63 (85) 86 Bi-Pap 60 02/10/17 19:20 90 70 02/10/17 19:15 58 23 117/58 (77) 87 Simple Mask 6 02/10/17 19:00 58 19 134/62 (86) 88 Simple Mask 6 02/10/17 18:45 60 22 127/60 (82) 89 Simple Mask 6 02/10/17 18:34 97.4 65 13 116/55 (75) 83 Simple Mask 6 02/10/17 12:00 96.4 57 16 116/59 (78) 95 02/10/17 11:30 63 02/10/17 09:58 98 Nasal Cannula 3.00 02/10/17 08:00 95.6 64 16 131/62 (85) 98 02/10/17 05:44 102/58 (73) Automatic Cuff 02/10/17 04:00 97.0 63 21 89/46 (60) 93 02/10/17 00:00 96.8 62 20 100/46 (64) 93 Physical Exam GENERAL: 71-year-old a female, resting in bed unresponsive SKIN: Warm and dry. No rash HEAD: Atraumatic. Normocephalic. EYES: Pupils equal and round about 3 mm bilaterally and reactive. No scleral icterus. No injection or drainage. ENT: No nasal bleeding or discharge. Mucous membranes pink and moist. NECK: Trachea midline. No JVD. CARDIOVASCULAR: Regular rate and rhythm. S1, S2 no S4. 2/6 murmur RESPIRATORY: Ms. breath sounds Breath sounds equal bilaterally. THORAX - left breast 12 o'clock position with PRISCILLA drain with sanguinous output GASTROINTESTINAL: Abdomen soft, obese, nondistended. Hypoactive bowel sounds. MUSCULOSKELETAL: Extremities 1+ lower extremity edema. No obvious deformities. NEUROLOGICAL: Unresponsive on BiPAP. Not withdrawing to pain.. PSYCHIATRIC: Unobtainable Laboratory Laboratory Tests Test 02/10/17 05:40 Blood Urea Nitrogen 28 Creatinine 1.77 Random Glucose 82 Calcium Level 8.4 Sodium Level 140 Potassium Level 4.4 Chloride Level 110 Carbon Dioxide Level 22.2 Anion Gap 8 Estimat Glomerular Filtration Rate 34 B-Type Natriuretic Peptide 4055 Date/Time Source Procedure Growth Status 02/04/17 11:27 Blood Peripheral Aerobic Blood Culture - Final NO GROWTH IN 5 DAYS Complete 02/04/17 11:27 Blood Peripheral Anaerobic Blood Culture - Final NO GROWTH IN 5 DAYS Complete 02/08/17 13:05 Urine Catheterized Urine Urine Culture - Preliminary Gram Negative Donato Resulted Result Diagram: 02/09/17 0514 02/10/17 0540 Imaging Last Impressions Chest X-Ray 02/03/17 1547 Signed Impressions: Service Date/Time: Friday, February 03, 2017 16:05 - CONCLUSION: 1. Marked cardiomegaly. 2. Left basilar consolidation/effusion. This actually appears slightly improved when compared to prior. 3. Right upper extremity PICC line with the tip projecting over the central venous system. Mt Alvarez MD Breast Ultrasound 02/03/17 0000 Signed Impressions: Service Date/Time: Friday, February 03, 2017 18:49 - CONCLUSION: Complex cystic lesion measuring up to 11.8 cm centered at the 12:00 position left breast. Given the clinical history of recent procedure in this area this could represent a noninfected or infected fluid collection. Given the complex internal architecture, percutaneous drainage will likely not be successful. Once the patient's condition permits, consider outpatient diagnostic mammogram and ultrasound followup. Gregory Bob MD ADDENDUM: Another consideration given the prior CT appearance and current imaging findings is an old hematoma. Gregory Bob MD Abdomen/Pelvis CT 02/03/17 0000 Signed Impressions: Service Date/Time: Friday, February 03, 2017 17:35 - CONCLUSION: 1. CT findings characteristic of right heart insufficiency with diffuse but stable anasarca in the visible soft tissues and leaves of the mesentery as well as a small amount of ascites. Intrahepatic IVC is markedly dilated. 2. Previously identified bilateral pleural effusions are significantly improved with only a small amount of fluid on the left. There is some persistent atelectasis in the left base. 3. Heart size remains prominent. 4. Otherwise stable. Mt Alvarez MD Assessment and Plan Assessment and Plan Neuro/Psych: Altered mental status - likely CO2 retention Currently on propofol/fentanyl drips for sedation/analgesia while intubated Goal of RASS -2 Daily sedation vacation Follow-up on CT brain CV: Congestive heart failure diastolic History arrhythmia/ chronic atrial fibrillation - LifeVest since 11/2016 Hypertension Coronary disease status post stent 3 Moderate to severe TR 2-D echocardiogram ninths essentially revealed EF of 60%. Severe TR. PAP 33 mmHg Currently on metoprolol 50 mill grams daily and amlodipine 5 mg daily Holding enalapril 10 mg twice a day as ARB initiated Previously on bumetanide 2 mg daily with KCl 10 mEq twice a day. Currently on hold Continue amiodarone 200 mg by mouth daily Dr. Feliciano - cardiology and Dr. Garcia, CT surgery following BNP greater than 4000 Furosemide 40 mg IV twice a day started by Dr. Love. Also on spironolactone 25 mg daily Also on Sacibutril/Valsartan 51/49 1 tablet twice a day Resp: Acute respiratory failure COPD - 3 L oxygen dependent PRVC 18/550/ Ventilator bundle Albuterol/ipratropium aerosols every 4 hours albuterol aerosols every 2 hours. Dyspnea Spontaneous breathing trials daily Follow-up on this intubation chest x-ray/ABG ABG on BiPAP prior to intubation reviewed GI: Patient is currently nothing by mouth NGT to LIWS Pantoprazole for GI prophylaxis Docusate sodium/senna for bowel regimen : Wolff catheter will be placed for accurate I's and O's in a critically ill patient Endo: Diabetes mellitus Will hold insulin detemir 27 units at night. Currently on sliding scale insulin with Novulog low regimen every 6 hours Renal: Acute kidney injury in the setting of chronic kidney disease stage III Followed by nephrology/by Dr. Love Avoid nephrotoxic drugs Follow up on urine eosinophils and electrolytes Heme: Normocytic anemia Chronic warfarin use Currently holding warfarin 4 mg daily. Repeat CBC and INR in a.m. Does not meet transfusion threshold at this time Currently on iron sulfate 325 mg by mouth twice a day ID: Escherichia coli UTI History of MSSA abscess to left breast Pertinent cultures 02/08 - urine - gram-negative donato 02/04 - blood cultures 2- no growth 02/03 - urine - Escherichia coli Followed by Dr. Tamayo/ID Currently on levofloxacin 250 mg daily and cefazolin 1 g IV every 8 hours 2 dosages FEN: Replace electrolytes as clinically indicated MSK: Postop day #0 I&D left breast hematoma by Dr. Joy Received 2 g cefazolin in ED. PT evaluate and treat Access - Utilize peripheral IV. Continue to use right upper extremity single lumen PICC line. Central line if indicated Prophylaxis - GI - pantoprazole - DVT - SCD/holding pharmacological prophylaxis until okay WITH SURGERY Critical care time 40 minutes Code Status Full code Discussed Condition With Patient. ISC RN. Daughter. Care plan discussed and all questions answered. Brenden Wills MD Feb 10, 2017 20:37
[2017-02-10] MEDS ORDERED: SODIUM CHLORIDE 0.9% FLUSH 10 ML FLUSH IV FLUSH SCH (21:00)
[2017-02-10] MEDS ORDERED: ROCURONIUM INJ 50 MG/5 ML VIAL ONE (21:07)
[2017-02-10] MEDS ORDERED: BISACODYL 10 MG SUPP RECTAL PRN (21:15)
[2017-02-10] MEDS ORDERED: LACTULOSE SYRUP 20 GM/30 ML CUP PO PRN (21:15)
[2017-02-10] MEDS ORDERED: CHLORHEXIDINE GLUCONATE 2 % 1 PACK (2 CLOTHS) TOP PRN (21:15)
[2017-02-10] MEDS ORDERED: MISCELLANEOUS NURSING INFORMATION XX SCH (21:15)
[2017-02-10] MEDS ORDERED: ROCURONIUM INJ 100 MG/10 ML VIAL IV ONE (21:15)
[2017-02-10] MEDS ORDERED: SENNOSIDES 8.6 MG TAB PO PRN (21:15)
[2017-02-10] MEDS ORDERED: ETOMIDATE 40 MG/20 ML VIAL IV PUSH ONE (21:15)
[2017-02-10] MEDS ORDERED: MAGNESIUM HYDROXIDE SUSP 30 ML CUP PO PRN (21:15)
[2017-02-10] MEDS ORDERED: RESP: ALBUTEROL 2.5 MG/3 ML NEB (PRN) INH (21:15)
[2017-02-10] MEDS ORDERED: ACETAMINOPHEN 325 MG TAB PO PRN (21:15)
--- NOTE | 2017-02-10 21:22 | PD.PROCEDR ---
Procedure Note Procedure DATE: 02/10/2017 PROCEDURE: Orotracheal intubation INDICATION: Unresponsive on BiPAP DETAILS OF PROCEDURE The patient was placed in optimal position and preoxygenated with 100% FiO2 via bag valve mask. At the start oxygen saturation was 100 %. The patient was administered 20 mg etomidate IV and 50 milligrams rocuronium IV. I entered the oropharynx with a size 4 Kota laryngoscope blade and obtained a grade 2 view of the airway. On single attempt a size 7.5 cuffed endotracheal tube was passed through the vocal cords. Correct tube location was confirmed with end tidal CO2 detector and by auscultating over bilateral lung barrera. The endotracheal tube was secured with adhesive tape at a depth of 23 cm at the lips. The patient was connected to the ventilator. The patient tolerated the procedure well without any apparent complications. Oxygen saturations were maintained greater than 95% all times. STAT chest x-ray pending at time of dictation. Brenden Wills MD Feb 10, 2017 21:22
[2017-02-10] MEDS: PROPOFOL 1000 MG/100 ML INJ 100 ML IV PRN (21:23)
[2017-02-10] MEDS: fentaNYL DRIP 250 ML IV PRN (21:24)
--- NOTE | 2017-02-10 22:52 | RADRPT ---
EXAM DATE/TIME: 02/10/2017 21:41 [facility] COMPARISON: CHEST SINGLE AP, February 10, 2017, 19:22. INDICATIONS : Post intubation and NG insertion. MEDICAL HISTORY : Cardiovascular disease. SURGICAL HISTORY : Pacemaker. ENCOUNTER: Initial ACUITY: 1 day PAIN SCORE: Non-responsive. LOCATION: Bilateral chest FINDINGS: The patient is intubated with the ET tube 1 cm from the anai. This could be pulled back 2 cm to be in a better position. There is an NG tube directed into the left upper quadrant of the abdomen. The h eart size is enlarged. Lungs demonstrate diffuse consolidation being worse at the bases. Effusions ne eds to be considered. There are multiple electronic devices seen over the chest. CONCLUSION: 1. ET tube 1 cm from the anai. This can be pulled back 2 cm to be in a better position. 2. Cardiomegaly. Multiple electronic devices are seen over the chest. 3. Diffuse pulmonary consolidations likely representing edema. There is further atelectasis or consol idation the bases and probably bilateral effusions. Gregory Perry MD on February 10, 2017 at 22:46 Board Certified Radiologist. This report was verified electronically.
[2017-02-10 23:06] LABS: BLOOD GAS BASE EXCESS -3.5 mmol/L (-2-2); BLOOD GAS CARBOXYHEMOGLOBIN 2.1 % (0-4); BLOOD GAS HCO3 22 mmol/L (22-26); BLOOD GAS METHEMOGLOBIN 0.7 % (0-2); BLOOD GAS O2 HGB SATURATION 97 % (90-100); BLOOD GAS OXYGEN CONTENT 13.4 Vol % (12.0-20.0); BLOOD GAS PCO2 42 mmHg (38-42); BLOOD GAS PO2 217 mmHg (61-120); BLOOD GAS TOTAL HGB 9.4 G/DL (12.0-16.0); CRITICAL VALUE NO; DRAW SITE RT RADIAL; FIO2 100 %; NUMBER OF ARTERIAL PUNCTURES 1; OXYGEN DEVICE VENTILATOR; TEMP CORR TO 98.6; ULNAR PULSE PRESENT
[2017-02-10 23:07] LABS: STAT NO
[2017-02-10 23:13] LABS: BLOOD GAS BASE EXCESS -4.6 mmol/L (-2-2); BLOOD GAS CARBOXYHEMOGLOBIN 1.7 % (0-4); BLOOD GAS HCO3 24 mmol/L (22-26); BLOOD GAS METHEMOGLOBIN 0.7 % (0-2); BLOOD GAS O2 HGB SATURATION 89 % (90-100); BLOOD GAS OXYGEN CONTENT 12.7 Vol % (12.0-20.0); BLOOD GAS PCO2 77 mmHg (38-42); BLOOD GAS PO2 83 mmHg (61-120); TEMP CORR TO 98.6
[2017-02-10 23:14] LABS: CRITICAL VALUE YES; OXYGEN DEVICE BIPAP
[2017-02-10 23:15] LABS: DRAW SITE RT RADIAL; FIO2 60 %; NUMBER OF ARTERIAL PUNCTURES 1; STAT YES; ULNAR PULSE PRESENT
--- NOTE | 2017-02-10 23:34 | RADRPT ---
EXAM DATE/TIME: 02/10/2017 23:06 [facility] COMPARISON: CT ABDOMEN & PELVIS W/O CONTRAST, February 03, 2017, 17:35. INDICATIONS : Increased BUN/Creatnine. MEDICAL HISTORY : Myocardial infarction. Congestive heart failure. Hypertension. Left eye cataracts. Dentures. Anticoag ulant therapy. COPD. Asthma. Dyspnea. SURGICAL HISTORY : Coronary artery stent. Appendectomy. Hysterectomy. Cardiac stents. Cardiac catheterization. Internal defibrillator. Right lumpectomy. ENCOUNTER: Initial ACUITY: 1 day PAIN SCORE: Nonresponsive. LOCATION: Bilateral flank MEASUREMENTS: RIGHT KIDNEY: 12.0 x 4.6 x 4.6 cm LEFT KIDNEY: 9.0 x 3.9 x 4.5 cm FINDINGS: There is extensive ascites seen RIGHT KIDNEY: Renal cortex is normal in thickness and echotexture. No hydronephrosis, stone, or mass. LEFT KIDNEY: Renal cortex is normal in thickness and echotexture. No hydronephrosis, stone, or mass. BLADDER: Within normal limits given the degree of distension. CONCLUSION: Normal examination. No evidence of obstruction or hydronephrosis.. Tyrone Simmons MD on February 10, 2017 at 23:32 Board Certified Radiologist. This report was verified electronically.
[2017-02-11] VITALS (20 sets, daily range): BP systolic 101–123; BP diastolic 53–59; PULSE 54–84; RESP 18; TEMP 96.6–99.3; O2SAT 90–100
[2017-02-11] MEDS: SODIUM CHLOR 0.9% 1000 ML INJ 1,000 ML IV SCH ×2 (00:39→00:43)
[2017-02-11] MEDS: RESP: ALBUTEROL 2.5 MG/IPRATROPIUM 0.5 MG NEB (SCH) INH ×7 (00:44→23:50)
[2017-02-11] MEDS: PROPOFOL 1000 MG/100 ML INJ 100 ML IV PRN ×2 (00:47→11:45)
[2017-02-11] MEDS: CHLORHEXIDINE GLUCONATE 2 % 1 PACK (2 CLOTHS) TOP SCH (03:04)
[2017-02-11] MEDS ORDERED: TERBUTALINE INJ 1 MG/ML AMP SQ PRN (03:15)
--- NOTE | 2017-02-11 04:59 | RADRPT ---
EXAM DATE/TIME: 02/11/2017 04:32 [facility] COMPARISON: CT BRAIN W/O CONTRAST, November 02, 2014, 21:37. INDICATIONS : Altered mental status. RADIATION DOSE: 58.03 CTDIvol (mGy) ; Tabletop CT Head MEDICAL HISTORY : Myocardial infarction. Chronic obstructive pulmonary disease. Congestive heart failure.Hypertension. Diabetes. SURGICAL HISTORY : Defibrillator. ENCOUNTER: Initial ACUITY: 1 day PAIN SCALE: Non-responsive LOCATION: cranial TECHNIQUE: Multiple contiguous axial images were obtained of the head. Using automated exposure control and adj ustment of the mA and/or kV according to patient size, radiation dose was kept as low as reasonably a chievable to obtain optimal diagnostic quality images. DICOM format image data is available electro nically for review and comparison. FINDINGS: CEREBRUM: The ventricles are normal for age. No evidence of midline shift, mass lesion, hemorrhage or acute in farction. No extra-axial fluid collections are seen. POSTERIOR FOSSA: The cerebellum and brainstem are intact. The 4th ventricle is midline. The cerebellopontine angle i s unremarkable. EXTRACRANIAL: The visualized portion of the orbits is intact. SKULL: The calvaria is intact. No evidence of skull fracture. CONCLUSION: Normal examination. Tyrone Simmons MD on February 11, 2017 at 4:57 Board Certified Radiologist. This report was verified electronically.
[2017-02-11 05:42] LABS: AUTOMATED NEUTROPHIL # 6.8 TH/MM3 (1.8-7.7); BASOPHIL # 0.1 TH/MM3 (0-0.2); BASOPHIL % 0.6 % (0.0-2.0); EOSINOPHIL # 0.1 TH/MM3 (0-0.4); EOSINOPHIL % 0.7 % (0.0-4.0); HEMO FLAGS DIFF FINAL; LYMPH % 11.1 % (9.0-44.0); MEAN CELL VOLUME 86.2 FL (80.0-100.0); MEAN CORPUSCULAR HEMOGLOBIN 28.3 PG (27.0-34.0); MEAN CORPUSCULAR HGB CONC 32.9 % (32.0-36.0); MONO % 11.3 % (0.0-8.0); NEUT % 76.3 % (16.0-70.0); PLATELET COUNT 323 TH/MM3 (150-450); RED BLOOD COUNT 3.36 MIL/MM3 (4.00-5.30); RED CELL DISTRIBUTION WIDTH 24.9 % (11.6-17.2); WHITE BLOOD COUNT 8.9 TH/MM3 (4.0-11.0)
[2017-02-11] MEDS: INSULIN ASPART SUPPLEMENTAL SCALE SQ SCH ×5 (06:00→23:41)
[2017-02-11 06:05] LABS: APTT (PATIENT) 35.7 SEC (24.3-30.1); INTERNATIONAL NORMALIZED RATIO 1.4 RATIO; PROTHROMBIN TIME - PATIENT 15.3 SEC (9.8-11.6)
[2017-02-11 06:15] LABS: BICARBONATE 21.7 MEQ/L (21.0-32.0); MAGNESIUM 1.6 MG/DL (1.5-2.5); POTASSIUM 4.3 MEQ/L (3.5-5.1)
[2017-02-11 06:25] LABS: INDIRECT BILIRUBIN 0.3 MG/DL (0.0-0.8); TOTAL BILIRUBIN ADULT 0.9 MG/DL (0.2-1.0)
[2017-02-11] MEDS: NOREPINEPHRINE INJ 4 MG in SODIUM CHLOR 0.9% 250 ML INJ 246 ML IV PRN ×2 (06:51→21:40)
[2017-02-11] MEDS: CHLORHEXIDINE 0.12% (ORAL KIT) 15 ML CUP MT SCH ×2 (08:00→21:39)
[2017-02-11] MEDS ORDERED: DEXTROSE 50% IN WATER 50 ML SYRINGE ONE ×2 (08:06→12:38)
[2017-02-11] MEDS: FERROUS SULFATE 325 MG (65 MG ELEMENTAL IRON) TAB PO SCH ×2 (09:00→21:39)
[2017-02-11] MEDS: METOPROLOL SUCCINATE 50 MG EXTENDED RELEASE TAB PO SCH (09:00)
[2017-02-11] MEDS: ARTIFICIAL TEARS OPTH SOLN 15 ML BTL EACH EYE SCH ×3 (09:00→21:38)
[2017-02-11] MEDS: amLODIPine BESYLATE 5 MG TAB PO SCH (09:00)
[2017-02-11] MEDS: FUROSEMIDE 40 MG/4 ML VIAL IV PUSH SCH (09:12)
[2017-02-11] MEDS: SPIRONOLACTONE 25 MG TAB PO SCH (09:12)
[2017-02-11] MEDS: PANTOPRAZOLE SODIUM 40 MG VIAL IV PUSH SCH (09:12)
[2017-02-11] MEDS: DOCUSATE SODIUM 50 MG/SENNA 8.6 MG TAB PO SCH ×2 (09:13→21:39)
[2017-02-11] MEDS: AMIODARONE 200 MG TAB PO SCH (09:13)
[2017-02-11] MEDS: SODIUM CHLORIDE 0.9% FLUSH 10 ML FLUSH IV FLUSH SCH ×2 (09:15→21:00)
--- NOTE | 2017-02-11 10:14 | HHI.CCPN ---
Subjective Remarks/Hospital Course Hospital Course: This is a 71-year-old Afro-[place] female. Date of admission 02/04/2017. Past medical history includes diastolic congestive heart failure, COPD, chronic atrial fibrillation, diabetes, hypertension and history of MSSA infection on cefazolin. Patient presents to [facility] initially on 02/04 with left breast swelling. In November/2016, patient was diagnosed with endocarditis and AICD infection. At that time, Pacemaker removed . Since that time she's had increasing swelling in her left breast and currently has an abscess of the location 11.8 cm in size. She also complained of Shortness of breath. This is associated with a self-reported 50 pound weight gain with bilateral lower extremity edema and significant stomach swelling. She also reports shortness of breath. She was treated with cefazolin at home include 01/29/2017. After cessation of treatment, she noted The patient reports a significant increase in her left breast swelling over the past 2-3 days. She states the area is tender to palpation and painful. She does not have a leukocytosis. Breast ultrasound showed a complex cystic lesion measuring up to 11.8 cm in the left breast that could represent a fluid collection or old hematoma. Today in 02/10, patient ID of her left breast by Dr. Joy. 300 crystalloid. EBL 50. Urine output 60. Patient received 40 mg torsemide IV post procedure. Her oxygenation requirements increasing currently on BiPAP. She is currently unresponsive when seen in [facility]. She'll be intubated at the present time Subjective: 02/11: intubated overnight. now on vasopressors with fever. likely mixed cardiogenic/septic shock from a combination of volume overload and breast abscess. Also has significant bilateral pleural effusion, left > right by CXR and bedside ultrasound. significantly up in weight. respiratory failure likely from volume overload, although worsening acute kidney injury and shock complicates picture. Objective Vital Signs Date Time Temp Pulse Resp B/P (MAP) Pulse Ox O2 Delivery O2 Flow Rate FiO2 02/11/17 08:16 100 40 02/11/17 06:51 70 108/54 02/11/17 04:00 98.5 18 02/10/17 21:15 Mechanical Ventilator 02/10/17 19:15 6 Intake and Output 02/11/17 02/11/17 02/12/17 08:00 16:00 00:00 Intake Total 543 ml Output Total 400 ml Balance 143 ml Result Diagram: 02/11/17 0530 02/11/17 0530 Other Results Laboratory Tests Test 02/10/17 20:46 02/10/17 22:50 Blood Gas Puncture Site RT RADIAL RT RADIAL Blood Gas Patient Temperature 98.6 98.6 Blood Gas HCO3 24 mmol/L (22-26) 22 mmol/L (22-26) Blood Gas Base Excess -4.6 mmol/L (-2-2) -3.5 mmol/L (-2-2) Blood Gas Oxygen Saturation 89 % (90-100) 97 % (90-100) Arterial Blood pH 7.12 (7.380-7.420) 7.33 (7.380-7.420) Arterial Blood Partial Pressure CO2 77 mmHg (38-42) 42 mmHg (38-42) Arterial Blood Partial Pressure O2 83 mmHg (61-120) 217 mmHg (61-120) Arterial Blood Oxygen Content 12.7 Vol % (12.0-20.0) 13.4 Vol % (12.0-20.0) Arterial Blood Carboxyhemoglobin 1.7 % (0-4) 2.1 % (0-4) Arterial Blood Methemoglobin 0.7 % (0-2) 0.7 % (0-2) Blood Gas Hemoglobin 10.0 G/DL (12.0-16.0) 9.4 G/DL (12.0-16.0) Oxygen Delivery Device BIPAP VENTILATOR Blood Gas Ventilator Setting SEE COMMENT Blood Gas Inspired Oxygen 60 % 100 % Imaging Last Impressions Head CT 02/11/17 0000 Signed Impressions: Service Date/Time: Saturday, February 11, 2017 04:32 - CONCLUSION: Normal examination. Tyrone Simmons MD Renal Ultrasound 02/10/17 0000 Signed Impressions: Service Date/Time: Friday, February 10, 2017 23:06 - CONCLUSION: Normal examination. No evidence of obstruction or hydronephrosis.. Tyrone Simmons MD Chest X-Ray 02/10/17 0000 Signed Impressions: Service Date/Time: Friday, February 10, 2017 21:41 - CONCLUSION: 1. ET tube 1 cm from the anai. This can be pulled back 2 cm to be in a better position. 2. Cardiomegaly. Multiple electronic devices are seen over the chest. 3. Diffuse pulmonary consolidations likely representing edema. There is further atelectasis or consolidation the bases and probably bilateral effusions. Gregory Perry MD Breast Ultrasound 02/03/17 Signed Impressions: Service Date/Time: Friday, February 03, 2017 18:49 - CONCLUSION: Complex cystic lesion measuring up to 11.8 cm centered at the 12:00 position left breast. Given the clinical history of recent procedure in this area this could represent a noninfected or infected fluid collection. Given the complex internal architecture, percutaneous drainage will likely not be successful. Once the patient's condition permits, consider outpatient diagnostic mammogram and ultrasound followup. Gregory Bob MD ADDENDUM: Another consideration given the prior CT appearance and current imaging findings is an old hematoma. Gregory Bob MD Abdomen/Pelvis CT 02/03/17 Signed Impressions: Service Date/Time: Friday, February 03, 2017 17:35 - CONCLUSION: 1. CT findings characteristic of right heart insufficiency with diffuse but stable anasarca in the visible soft tissues and leaves of the mesentery as well as a small amount of ascites. Intrahepatic IVC is markedly dilated. 2. Previously identified bilateral pleural effusions are significantly improved with only a small amount of fluid on the left. There is some persistent atelectasis in the left base. 3. Heart size remains prominent. 4. Otherwise stable. Mt Alvarez MD Objective Remarks GENERAL: 71-year-old a female, lying in bed, intubated, sedated, critically ill appearing. SKIN: Warm and dry. No rash HEAD: Atraumatic. Normocephalic. EYES: Pupils equal and round bilaterally reactive. No scleral icterus. No injection or drainage. ENT: No nasal bleeding or discharge. Mucous membranes pink and moist. NECK: Trachea midline. large neck circumference prevents accurate assessment of JVD. orotracheally intubated CARDIOVASCULAR: Regular rate and rhythm. on levophed at 2 mcg/min. bedside critical care echo: moderately depressed LV function, clinically significant TR , dilated IVC without respiratory variation, no pericardial effusion, large left pleural effusion. moderate right pleural effusion. RESPIRATORY: PRVC. full support. decreased BS bilaterally. THORAX - left breast 12 o'clock position with PRISCILLA drain with sanguinous output. breast remains indurated and firm, no fluctuance. GASTROINTESTINAL: Abdomen soft, obese, nondistended. MUSCULOSKELETAL: Extremities 2+ lower extremity edema. No obvious deformities. NEUROLOGICAL: RASS -3. does not follow commands. intubated, sedated. A/P Assessment and Plan Assessment: 71yF with h/o ICM, prior EF reported at 15%, s/p placement of AICD, recovery of LVEF to 60%, AICD infection s/p lead extraction, now with breast abscess, septic shock, volume overload, acute Systolic CHF exacerbation, acute hypoxic respiratory failure, possibly early cardiogenic/mixed shock. very critically ill. Neuro/Psych: Metabolic Encephalopathy - secondary to co2 retention and sepsis. Hyperammonemia Currently on propofol/fentanyl drips for sedation/analgesia while intubated Goal of RASS -[address] brain 02/10- negative for acute disease. CV: Acute CHF exacerbation: mixed type, including systolic, diastolic, and valvulopathy from severe tricuspid regurgitation. History arrhythmia/ chronic atrial fibrillation - LifeVest since 11/2016 Hypertension Coronary disease status post stent 3 Moderate to severe TR Septic Shock possibly early cardiogenic shock Acute intravascular volume overload 2-D echocardiogram revealed EF of 60%. Severe TR. PAP 33 mmHg, bedside critical care echo 02/11: moderately depressed LV function. clinically significant TR. hold metoprolol, enalapril, amlodipine for hypotension continue levophed for goal map > 65 mmHg. Previously on bumetanide 2 mg daily with KCl 10 mEq twice a day. increased forced diuresis to bumex 2mg iv q8h. give with concentrated albumin given concomitant septic shock. add metolazone 5mg po x 1. Continue amiodarone 200 mg by mouth daily Dr. Feliciano - cardiology and Dr. Garcia, CT surgery following BNP greater than 4000 hold spironolactone given renal function. hold Sacibutril/Valsartan 51/49 while on vasopressors. trend BNP Resp: Acute hypoxic respiratory failure Bilateral pleural effusions, L > R Acute pulmonary edema Severe acute intravascular volume overload COPD - 3 L oxygen dependent PRVC Ventilator bundle Albuterol/ipratropium aerosols every 4 hours albuterol aerosols every 2 hours. Dyspnea Spontaneous breathing trials daily wean fio2 for goal spo2 > 90% will obtain non-contrasted CT chest to eval size of effusions which may be contributing to respiratory failure. given recent operative bed over left chest as well as life-vest, may need IR guided drainage if amenable. GI: Hyperammonemia Acute protein calorie malnutrition - moderate Acute intravascular volume overload Obesity Patient is currently nothing by mouth NGT to LIWS Pantoprazole for GI prophylaxis Docusate sodium/senna for bowel regimen lactulose qid for elevated ammonia which is likely secondary to early congestive hepatopathy trend daily ammonias daily BMPs diuresis as above. : Acute Kidney Injury maintain ellis today. forced diuresis as above kidney injury likely multifactorial and combination of shock and venous congestion from volume overload. lungs and heart function require urgent forced diuresis given rising BNP, despite worsening renal function. Endo: Diabetes mellitus Will hold insulin detemir 27 units at night. Currently on sliding scale insulin with Novulog low regimen every 6 hours Renal: Acute kidney injury in the setting of chronic kidney disease stage III Followed by nephrology/by Dr. Love Avoid nephrotoxic drugs Heme: Normocytic anemia Chronic warfarin use Currently holding warfarin 4 mg daily. Repeat CBC and INR daily Does not meet transfusion threshold at this time Currently on iron sulfate 325 mg by mouth twice a day ID: Escherichia coli UTI History of MSSA abscess to left breast Pertinent cultures 02/08 - urine - gram-negative bela 02/04 - blood cultures 2- no growth 02/03 - urine - Escherichia coli Followed by Dr. Tamayo/ID Currently on levofloxacin 250 mg daily and cefazolin 1 g IV every 8 hours 2 dosages FEN: Replace electrolytes as clinically indicated MSK: Postop day #1 I&D left breast hematoma by Dr. Joy PT evaluate and treat Access - Utilize peripheral IV. Continue to use right upper extremity single lumen PICC line. Central line if indicated Prophylaxis - GI - pantoprazole - DVT - SCD/holding pharmacological prophylaxis until okay WITH SURGERY Critical care time 78 minutes, exclusive of separately billable procedures. Sanket Rodarte MD Feb 11, 2017 10:14
[2017-02-11] MEDS ORDERED: METOLAZONE 5 MG TAB PO ONE (10:15)
[2017-02-11] MEDS: LEVOFLOXACIN 250 MG TAB PO SCH (10:54)
[2017-02-11] MEDS ORDERED: BUMETANIDE INJ 1 MG/4 ML VIAL IV PUSH SCH (11:00)
[2017-02-11] MEDS: ALBUMIN 25% INJ 100 ML IV SCH ×2 (11:00→21:38)
[2017-02-11] MEDS: LACTULOSE SYRUP 20 GM/30 ML CUP PO SCH ×3 (13:00→21:39)
--- NOTE | 2017-02-11 14:35 | HHI.NPPN ---
Subjective History of Present Illness 71 year old female with ARF/CHF.Hematoma Left breast Additional Remarks intubated Objective Data Data 02/11/17 02/12/17 19:00 07:00 Intake Total 389 ml Balance 389 ml IV Total 389 ml Vital Signs Date Time Temp Pulse Resp B/P (MAP) Pulse Ox O2 Delivery O2 Flow Rate FiO2 02/11/17 14:00 68 02/11/17 12:00 98.3 71 18 119/57 (77) 90 02/11/17 12:00 71 02/11/17 12:00 50 02/11/17 11:50 95 50 02/11/17 10:00 68 02/11/17 08:16 100 40 02/11/17 08:00 58 02/11/17 08:00 99.3 69 18 101/54 (70) 100 02/11/17 08:00 50 02/11/17 07:00 98 Mechanical Ventilator 40 02/11/17 06:51 70 108/54 02/11/17 06:00 68 02/11/17 04:46 100 100 02/11/17 04:05 100 40 02/11/17 04:00 50 02/11/17 04:00 98.5 68 18 102/53 (69) 100 02/11/17 04:00 68 02/11/17 02:00 60 02/11/17 01:00 50 02/11/17 00:36 100 50 02/11/17 00:00 96.6 54 18 123/57 (79) 100 Manual Cuff/Auscultation 02/11/17 00:00 54 02/11/17 00:00 100 02/10/17 22:00 58 02/10/17 21:25 92 100 02/10/17 21:15 100 02/10/17 21:15 100 Mechanical Ventilator 100 02/10/17 20:38 94 60 02/10/17 20:30 56 02/10/17 20:30 94 Bi-Pap 70 02/10/17 20:15 97.6 62 21 130/60 (83) 93 Bi-Pap 70 02/10/17 20:00 58 21 131/58 (82) 93 Bi-Pap 70 02/10/17 19:45 57 22 131/58 (82) 91 Bi-Pap 70 02/10/17 19:30 60 22 131/63 (85) 86 Bi-Pap 60 02/10/17 19:20 90 70 02/10/17 19:15 58 23 117/58 (77) 87 Simple Mask 6 02/10/17 19:00 58 19 134/62 (86) 88 Simple Mask 6 02/10/17 18:45 60 22 127/60 (82) 89 Simple Mask 6 02/10/17 18:34 97.4 65 13 116/55 (75) 83 Simple Mask 6 -: 02/11/17 0530 02/11/17 0530 Microbiology 02/10/17 Fungal Smear, Received Pending 02/10/17 Fungal Culture, Received Pending 02/10/17 Acid Fast Stain, Received Pending 02/10/17 Mycobacterial Culture, Received Pending 02/10/17 Gram Stain - Final, Resulted 02/10/17 Body Fluid Culture - Preliminary, Resulted NO GROWTH IN 24 HOURS. 02/10/17 Fungal Smear, Received Pending 02/10/17 Fungal Culture, Received Pending 02/10/17 Acid Fast Stain, Received Pending 02/10/17 Mycobacterial Culture, Received Pending 02/10/17 Gram Stain - Final, Resulted 02/10/17 Wound Culture - Preliminary, Resulted NO GROWTH IN 24 HOURS. Physical Exam General Appearance: Well Developed Neck Neck Exam: Neck Supple Pulmonary Resp Exam: Decreased Bases Cardiology CV Exam: Arrhythmia Gastrointestinal/Abdomen GI Exam: Soft, Distended Extremeties Extremities Exam: Pitting Edema Assessment/Plan Problem List: (1) HARVEY (acute kidney injury) ICD Codes: N17.9 - Acute kidney failure, unspecified Status: Acute Plan: Patient has congestive heart failure poor response to diuresis change to Bumex drip at 1 mg/hr if do not response consider dialysis Avoid nephrotoxins follow BMP (2) Hematoma (nontraumatic) of breast ICD Codes: N64.89 - Other specified disorders of breast Plan: Surgically operated on (3) Bilateral lower extremity edema ICD Codes: R60.0 - Bilateral lower extremity edema Status: Acute Plan: Due to congestive heart failure (4) CHF (congestive heart failure) ICD Codes: I50.9 - CHF (congestive heart failure) Status: Chronic Plan: With acute decompensation Lasix ordered after surgery (5) UTI (urinary tract infection) ICD Codes: N39.0 - UTI (urinary tract infection) Status: Acute Plan: Gram-negative rods on cefazolin And Levaquin Problem Qualifiers (1) CHF (congestive heart failure): Qualified Codes: I50.33 - Acute on chronic diastolic (congestive) heart failure Laurel Love MD Feb 11, 2017 14:35
--- NOTE | 2017-02-11 16:22 | PD.CAR.PN ---
CVT Progress Note Subjective/Hospital Course: A 71-year-old female known to our service, under removal of AICD, laser extraction of the lead done 12/18/2016 after being diagnosed with sepsis. The patient presented on this admission with increased swelling of her left breast. She reported a 50 pound weight gain with bilateral lower extremity, significant abdominal swelling, shortness of breath. The left breast was very swollen where her pacemaker had been removed. She grew MSSA on her blood cultures on her last admission and was discharged with home infusion of antibiotics which she completed 01/29/2017. The complaint of the left breast being very painful to palpation. CT of the abdomen and pelvis showed some stable anasarca with small amount of ascites, also some bilateral small effusions. The breast ultrasound showed a cystic lesion measuring 11.8 cm in the left breast at 12 o'clock. We were consulted for possible fluid collection versus hematoma. Her hemoglobin was 7.4 and 24. PAST MEDICAL HISTORY The past medical history includes chronic atrial fibrillation on Coumadin, COPD, CHF, diabetes mellitus, hypertension. surgery: Incision and drainage of left breast hematoma Operation and Findings: The previous AICD pocket incision was opened and ~600ml of brown tinged serous fluid was drained from the chest wall behind and involving the left breast. The fluid was submitted for cultures. The wound was copiously irrigated. 02/10 postop pt had worsening resp acidosis failure hypoxemia, ph 7.12/ co2 77 , despite demadex and Bipap , she was emergently intubated 02/11 she remains in ISC sedated on vent left breast slightly improved , less swelling, , MARCOS left in place , drained 65cc / 12 hrs / bloody drainage still has significant sacral and lower ext edema Objective: GENERAL: sedated on vent SKIN: Warm and dry. dressing to left chest/ marcos drain in place HEAD: Atraumatic. Normocephalic. EYES: Pupils equal and round. sluggish No scleral icterus. No injection or drainage. ENT: No nasal bleeding or discharge. Mucous membranes pink and moist. NECK: Trachea midline. No JVD. CARDIOVASCULAR: Regular rate and rhythm. general edema RESPIRATORY: orally intubated on vent No accessory muscle use. few coarse breath sounds Breath sounds equal bilaterally. GASTROINTESTINAL: Abdomen soft, non-tender, nondistended. Hepatic and splenic margins not palpable. MUSCULOSKELETAL: Extremities without clubbing, cyanosis, or edema. No obvious deformities. NEUROLOGICAL: Awake and alert. No obvious cranial nerve deficits. Motor grossly within normal limits. Five out of 5 muscle strength in the arms and legs. Normal speech. PSYCHIATRIC: Appropriate mood and affect; insight and judgment normal. Vital Signs Date Time Temp Pulse Resp B/P (MAP) Pulse Ox O2 Delivery O2 Flow Rate FiO2 02/11/17 14:00 68 02/11/17 12:00 98.3 71 18 119/57 (77) 90 02/11/17 12:00 71 02/11/17 12:00 50 02/11/17 11:50 95 50 02/11/17 10:00 68 02/11/17 08:16 100 40 02/11/17 08:00 58 02/11/17 08:00 99.3 69 18 101/54 (70) 100 02/11/17 08:00 50 02/11/17 07:00 98 Mechanical Ventilator 40 02/11/17 06:51 70 108/54 02/11/17 06:00 68 02/11/17 04:46 100 100 02/11/17 04:05 100 40 02/11/17 04:00 50 02/11/17 04:00 98.5 68 18 102/53 (69) 100 02/11/17 04:00 68 02/11/17 02:00 60 02/11/17 01:00 50 02/11/17 00:36 100 50 02/11/17 00:00 96.6 54 18 123/57 (79) 100 Manual Cuff/Auscultation 02/11/17 00:00 54 02/11/17 00:00 100 02/10/17 22:00 58 02/10/17 21:25 92 100 02/10/17 21:15 100 02/10/17 21:15 100 Mechanical Ventilator 100 02/10/17 20:38 94 60 02/10/17 20:30 56 02/10/17 20:30 94 Bi-Pap 70 02/10/17 20:15 97.6 62 21 130/60 (83) 93 Bi-Pap 70 02/10/17 20:00 58 21 131/58 (82) 93 Bi-Pap 70 02/10/17 19:45 57 22 131/58 (82) 91 Bi-Pap 70 02/10/17 19:30 60 22 131/63 (85) 86 Bi-Pap 60 02/10/17 19:20 90 70 02/10/17 19:15 58 23 117/58 (77) 87 Simple Mask 6 02/10/17 19:00 58 19 134/62 (86) 88 Simple Mask 6 02/10/17 18:45 60 22 127/60 (82) 89 Simple Mask 6 02/10/17 18:34 97.4 65 13 116/55 (75) 83 Simple Mask 6 Labs: Laboratory Tests Test 02/11/17 05:30 White Blood Count 8.9 TH/MM3 (4.0-11.0) Red Blood Count 3.36 MIL/MM3 (4.00-5.30) Hemoglobin 9.5 GM/DL (11.6-15.3) Hematocrit 29.0 % (35.0-46.0) Mean Corpuscular Volume 86.2 FL (80.0-100.0) Mean Corpuscular Hemoglobin 28.3 PG (27.0-34.0) Mean Corpuscular Hemoglobin Concent 32.9 % (32.0-36.0) Red Cell Distribution Width 24.9 % (11.6-17.2) Platelet Count 323 TH/MM3 (150-450) Mean Platelet Volume 6.5 FL (7.0-11.0) Neutrophils (%) (Auto) 76.3 % (16.0-70.0) Lymphocytes (%) (Auto) 11.1 % (9.0-44.0) Monocytes (%) (Auto) 11.3 % (0.0-8.0) Eosinophils (%) (Auto) 0.7 % (0.0-4.0) Basophils (%) (Auto) 0.6 % (0.0-2.0) Neutrophils # (Auto) 6.8 TH/MM3 (1.8-7.7) Lymphocytes # (Auto) 1.0 TH/MM3 (1.0-4.8) Monocytes # (Auto) 1.0 TH/MM3 (0-0.9) Eosinophils # (Auto) 0.1 TH/MM3 (0-0.4) Basophils # (Auto) 0.1 TH/MM3 (0-0.2) CBC Comment DIFF FINAL Differential Comment Prothrombin Time 15.3 SEC (9.8-11.6) Prothromb Time International Ratio 1.4 RATIO Activated Partial Thromboplast Time 35.7 SEC (24.3-30.1) Blood Urea Nitrogen 33 MG/DL (7-18) Creatinine 2.00 MG/DL (0.50-1.00) Random Glucose 72 MG/DL (74-106) Calcium Level 8.1 MG/DL (8.5-10.1) Phosphorus Level 2.7 MG/DL (2.5-4.9) Magnesium Level 1.6 MG/DL (1.5-2.5) Sodium Level 141 MEQ/L (136-145) Potassium Level 4.3 MEQ/L (3.5-5.1) Chloride Level 109 MEQ/L (98-107) Carbon Dioxide Level 21.7 MEQ/L (21.0-32.0) Anion Gap 10 MEQ/L (5-15) Estimat Glomerular Filtration Rate 30 ML/MIN (>89) Lactic Acid Level 1.0 mmol/L (0.4-2.0) Total Bilirubin 0.9 MG/DL (0.2-1.0) Direct Bilirubin 0.6 MG/DL (0.0-0.2) Indirect Bilirubin 0.3 MG/DL (0.0-0.8) Aspartate Amino Transf (AST/SGOT) 16 U/L (15-37) Alanine Aminotransferase (ALT/SGPT) 9 U/L (10-53) Alkaline Phosphatase 89 U/L (45-117) Ammonia 54 MCMOL/L (11-32) Total Protein 6.2 GM/DL (6.4-8.2) Albumin 2.2 GM/DL (3.4-5.0) Amylase Level 73 U/L (25-115) Lipase 35 U/L (73-393) Thyroid Stimulating Hormone 3rd Gen 4.540 uIU/ML (0.358-3.740) Result Diagram: 02/11/1752902/11/17529 (1) Cellulitis of left breast Plan: s/p I&D left breast keep marcos drain in place culture pending (2) Anemia Plan: HGB stable 9.5 (3) CKD (chronic kidney disease), stage III Plan: nephrology following (4) COPD with acute exacerbation (5) Respiratory failure with hypercapnia Plan: intubated on vent per [facility] CXR noted : bibasilar consolidation / effusion Sondra Farias Feb 11, 2017 16:22
[2017-02-11 16:28] LABS: BLOOD GAS BASE EXCESS -1.3 mmol/L (-2-2); BLOOD GAS HCO3 22 mmol/L (22-26); BLOOD GAS METHEMOGLOBIN 0.5 % (0-2); BLOOD GAS O2 HGB SATURATION 88 % (90-100); BLOOD GAS OXYGEN CONTENT 11.6 Vol % (12.0-20.0); BLOOD GAS PCO2 34 mmHg (38-42); BLOOD GAS PO2 58 mmHG (61-120); BLOOD GAS TOTAL HGB 9.4 G/DL (12.0-16.0); CRITICAL VALUE YES; OXYGEN DEVICE VENTILATOR; TEMP CORR TO 98.6
[2017-02-11 16:29] LABS: DRAW SITE LT RADIAL; FIO2 40 %; NUMBER OF ARTERIAL PUNCTURES 1; STAT NO; ULNAR PULSE PRESENT; VENT SETTINGS PRVC/AC
[2017-02-11] MEDS: BUMETANIDE INJ 100 ML IV SCH (16:33)
[2017-02-11] MEDS: DEXTROSE 10% INJ 1,000 ML IV SCH (17:00)
--- NOTE | 2017-02-11 18:04 | HHI.PR ---
Addendum to Inpatient Note Additional Information pt seen today around 1600 pm full note to follow dw drainage of L breast hematoma clx neg @ 24 hrs Now int'd on vent 05/02 resp distress no fever, no leukocytosis dw RN dw brother @ b/s Darleen Tamayo MD Feb 11, 2017 18:04
[2017-02-11] MEDS: fentaNYL DRIP 250 ML IV PRN (19:36)
--- NOTE | 2017-02-11 22:47 | RADRPT ---
EXAM DATE/TIME: 02/11/2017 22:16 [place] COMPARISON: No previous studies available for comparison. INDICATIONS : Pleural effusion. RADIATION DOSE: 16.49 CTDIvol (mGy) MEDICAL HISTORY : Cardiovascular disease. Congestive heart failure. Hypertension. Diabetes. SURGICAL HISTORY : Hysterectomy. Appendectomy. ENCOUNTER: Initial ACUITY: 1 day PAIN SCALE: Non-responsive LOCATION: chest TECHNIQUE: Volumetric scanning of the chest was performed. Using automated exposure control and adjustment of t he mA and/or kV according to patient size, radiation dose was kept as low as reasonably achievable to obtain optimal diagnostic quality images. DICOM format image data is available electronically for r eview and comparison. Follow-up recommendations for detected pulmonary nodules are based at a minimum on nodule size and pa tient risk factors according to Fleischner Society Guidelines. FINDINGS: LUNGS: The patient has a endotracheal tube in good position. There is some consolidation throughout the left lower lobe sparing only the left upper lobe superior segment. PLEURAE: There is no pleural thickening. There are bilateral pleural effusions right greater than left. The ri ght pleural effusion measures at least 3.2 x 6.0 cm across. Left pleural effusion is much smaller onl y measuring 1.5 cm in maximal dimension. MEDIASTINUM: The heart is enlarged diffusely. The great vessels demonstrate no acute abnormality. There is no med iastinal or hilar lymphadenopathy. PICC line in good position. AXILLAE: Within normal limits. No lymphadenopathy. MUSCULOSKELETAL: Within normal limits for patient age. MISCELLANEOUS: The visualized upper abdominal organs demonstrate no acute abnormality. NG tube within the stomach. Ascites in the abdomen. Diffuse soft tissue abdominal wall body wall edema CONCLUSION: Heart is quite enlarged. ET tube is in good position. There is a dense consolidation involving almost the entire left lower lobe with small left pleural effusion. There is a moderate size right pleural effusion measuring 3.2 x 6.0 cm across. Tyrone Simmons MD on February 11, 2017 at 22:42 Board Certified Radiologist. This report was verified electronically.
--- NOTE | 2017-02-11 23:02 | HHI.IDPN ---
Subjective Subjective Remarks pt seen today around 1600 pm this is a delayed entry dw drainage of L breast hematoma 02/10 wound clx neg @ 24 hrs Pt is now int'd on vent 05/02 resp distress borderline fever (99.7), no leukocytosis Antibiotics levaquine Allergies: Coded Allergies: penicillin G (Unverified Allergy, Severe, rash, 12/31/16) benazepril (Unverified Allergy, Mild, 12/31/16) HUMBLE inhibitor angioedema, swelling of the face lips and anterior tongue captopril (Unverified Allergy, Mild, 12/31/16) HUMBLE inhibitor angioedema, swelling of the face lips and anterior tongue enalaprilat (Unverified Allergy, Mild, 12/31/16) HUMBLE inhibitor angioedema, swelling of the face lips and anterior tongue fosinopril (Unverified Allergy, Mild, 12/31/16) HUMBLE inhibitor angioedema, swelling of the face lips and anterior tongue lisinopril (Unverified Allergy, Mild, 12/31/16) HUMBLE inhibitor angioedema, swelling of the face lips and anterior tongue quinapril (Unverified Allergy, Mild, 12/31/16) HUMBLE inhibitor angioedema, swelling of the face lips and anterior tongue Uncoded Allergies: NON COMPATIBLE PACEMAKER (Adverse Reaction, Severe, MRI PRECAUTION / PACEMAKER, 11/03/14) MRI PRECAUTION. PACEMAKER Objective . Vital Signs Date Time Temp Pulse Resp B/P (MAP) Pulse Ox O2 Delivery O2 Flow Rate FiO2 02/11/17 21:40 75 103/58 02/11/17 18:00 73 02/11/17 16:05 100 40 02/11/17 16:00 50 02/11/17 16:00 98.3 69 18 108/59 (75) 100 02/11/17 16:00 69 02/11/17 14:00 68 02/11/17 12:00 98.3 71 18 119/57 (77) 90 02/11/17 12:00 71 02/11/17 12:00 50 02/11/17 11:50 95 50 02/11/17 10:00 68 02/11/17 08:16 100 40 02/11/17 08:00 58 02/11/17 08:00 99.3 69 18 101/54 (70) 100 02/11/17 08:00 50 02/11/17 07:00 98 Mechanical Ventilator 40 02/11/17 06:51 70 108/54 02/11/17 06:00 68 02/11/17 04:46 100 100 02/11/17 04:05 100 40 02/11/17 04:00 50 02/11/17 04:00 98.5 68 18 102/53 (69) 100 02/11/17 04:00 68 02/11/17 02:00 60 02/11/17 01:00 50 02/11/17 00:36 100 50 02/11/17 00:00 96.6 54 18 123/57 (79) 100 Manual Cuff/Auscultation 02/11/17 00:00 54 02/11/17 00:00 100 02/11/17 02/11/17 02/12/17 14:59 22:59 06:59 Intake Total 486 ml 497 ml Output Total 620 ml Balance 486 ml -123 ml IV Total 486 ml 497 ml Output Urine Total 600 ml Drainage Total 20 ml . Laboratory Tests Test 02/11/17 05:30 White Blood Count 8.9 TH/MM3 Red Blood Count 3.36 MIL/MM3 Hemoglobin 9.5 GM/DL Hematocrit 29.0 % Mean Corpuscular Volume 86.2 FL Mean Corpuscular Hemoglobin 28.3 PG Mean Corpuscular Hemoglobin Concent 32.9 % Red Cell Distribution Width 24.9 % Platelet Count 323 TH/MM3 Mean Platelet Volume 6.5 FL Neutrophils (%) (Auto) 76.3 % Lymphocytes (%) (Auto) 11.1 % Monocytes (%) (Auto) 11.3 % Eosinophils (%) (Auto) 0.7 % Basophils (%) (Auto) 0.6 % Neutrophils # (Auto) 6.8 TH/MM3 Lymphocytes # (Auto) 1.0 TH/MM3 Monocytes # (Auto) 1.0 TH/MM3 Eosinophils # (Auto) 0.1 TH/MM3 Basophils # (Auto) 0.1 TH/MM3 CBC Comment DIFF FINAL Differential Comment Laboratory Tests Test 02/10/17 05:40 02/11/17 05:30 Blood Urea Nitrogen 28 MG/DL 33 MG/DL Creatinine 1.77 MG/DL 2.00 MG/DL Random Glucose 82 MG/DL 72 MG/DL Calcium Level 8.4 MG/DL 8.1 MG/DL Sodium Level 140 MEQ/L 141 MEQ/L Potassium Level 4.4 MEQ/L 4.3 MEQ/L Chloride Level 110 MEQ/L 109 MEQ/L Carbon Dioxide Level 22.2 MEQ/L 21.7 MEQ/L Anion Gap 8 MEQ/L 10 MEQ/L Estimat Glomerular Filtration Rate 34 ML/MIN 30 ML/MIN B-Type Natriuretic Peptide 4055 PG/ML Phosphorus Level 2.7 MG/DL Magnesium Level 1.6 MG/DL Lactic Acid Level 1.0 mmol/L Total Bilirubin 0.9 MG/DL Direct Bilirubin 0.6 MG/DL Indirect Bilirubin 0.3 MG/DL Aspartate Amino Transf (AST/SGOT) 16 U/L Alanine Aminotransferase (ALT/SGPT) 9 U/L Alkaline Phosphatase 89 U/L Ammonia 54 MCMOL/L Total Protein 6.2 GM/DL Albumin 2.2 GM/DL Amylase Level 73 U/L Lipase 35 U/L Thyroid Stimulating Hormone 3rd Gen 4.540 uIU/ML Microbiology Date/Time Source Procedure Growth Status 02/10/17 17:33 Fluid Other Fungal Smear - Final NO FUNGAL ELEMENTS SEEN. Resulted 02/10/17 17:33 Fluid Other Fungal Culture Pending Resulted 02/10/17 17:33 Fluid Other Acid Fast Stain Pending Received 02/10/17 17:33 Fluid Other Mycobacterial Culture Pending Received 02/10/17 17:33 Fluid Other Gram Stain - Final Resulted 02/10/17 17:33 Fluid Other Body Fluid Culture - Preliminary NO GROWTH IN 24 HOURS. Resulted 02/10/17 17:33 Wound Other Fungal Smear - Final NO FUNGAL ELEMENTS SEEN. Resulted 02/10/17 17:33 Wound Other Fungal Culture Pending Resulted 02/10/17 17:33 Wound Other Acid Fast Stain Pending Received 02/10/17 17:33 Wound Other Mycobacterial Culture Pending Received 02/10/17 17:33 Wound Other Gram Stain - Final Resulted 02/10/17 17:33 Wound Other Wound Culture - Preliminary NO GROWTH IN 24 HOURS. Resulted Imaging Last Impressions Head CT 02/11/17 0000 Signed Impressions: Service Date/Time: Saturday, February 11, 2017 04:32 - CONCLUSION: Normal examination. Tyrone Simmons MD Chest CT 02/11/17 0000 Signed Impressions: Service Date/Time: Saturday, February 11, 2017 22:16 - CONCLUSION: Heart is quite enlarged. ET tube is in good position. There is a dense consolidation involving almost the entire left lower lobe with small left pleural effusion. There is a moderate size right pleural effusion measuring 3.2 x 6.0 cm across. Tyrone Simmons MD Renal Ultrasound 02/10/17 Signed Impressions: Service Date/Time: Friday, February 10, 2017 23:06 - CONCLUSION: Normal examination. No evidence of obstruction or hydronephrosis.. Tyrone Simmons MD Chest X-Ray 02/10/17 Signed Impressions: Service Date/Time: Friday, February 10, 2017 21:41 - CONCLUSION: 1. ET tube 1 cm from the anai. This can be pulled back 2 cm to be in a better position. 2. Cardiomegaly. Multiple electronic devices are seen over the chest. 3. Diffuse pulmonary consolidations likely representing edema. There is further atelectasis or consolidation the bases and probably bilateral effusions. Gregory Perry MD Breast Ultrasound 02/03/17 Signed Impressions: Service Date/Time: Friday, February 03, 2017 18:49 - CONCLUSION: Complex cystic lesion measuring up to 11.8 cm centered at the 12:00 position left breast. Given the clinical history of recent procedure in this area this could represent a noninfected or infected fluid collection. Given the complex internal architecture, percutaneous drainage will likely not be successful. Once the patient's condition permits, consider outpatient diagnostic mammogram and ultrasound followup. Gregory Bob MD ADDENDUM: Another consideration given the prior CT appearance and current imaging findings is an old hematoma. Gregory Bob MD Abdomen/Pelvis CT 02/03/17 Signed Impressions: Service Date/Time: Friday, February 03, 2017 17:35 - CONCLUSION: 1. CT findings characteristic of right heart insufficiency with diffuse but stable anasarca in the visible soft tissues and leaves of the mesentery as well as a small amount of ascites. Intrahepatic IVC is markedly dilated. 2. Previously identified bilateral pleural effusions are significantly improved with only a small amount of fluid on the left. There is some persistent atelectasis in the left base. 3. Heart size remains prominent. 4. Otherwise stable. Mt Alvarez MD Physical Exam CONSTITUTIONAL/GENERAL: This is an adequately nourished patient, in no apparent distress. TUBES/LINES/DRAINS: SKIN: No jaundice, rashes, or lesions. Skin temperature appropriate. Not diaphoretic. L breast dressing in place HEENT: orally intubated CARDIOVASCULAR: Regular rate and rhythm without murmurs, gallops, or rubs. No JVD. Peripheral pulses symmetric. RESPIRATORY/CHEST: Symmetric, unlabored respirations. Clear to auscultation. Breath sounds equal bilaterally. No wheezes, rales, or rhonchi. GASTROINTESTINAL: Abdomen soft, non-tender, distended with prominent edema. No hepato-splenomegaly, or palpable masses. No guarding. Bowel sounds present. GENITOURINARY: Without palpable bladder distension. Wolff catheter in place with clear light yellow urine MUSCULOSKELETAL: Extremities without clubbing, cyanosis, + prominent edema. No joint tenderness or effusion noted. No calf tenderness. No mottling or clubbing. LYMPHATICS: No palpable cervical or supraclavicular adenopathy. 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 PNA CT from 02/11/17 showed a dense consolidation involving almost the entire left lower lobe with small left pleural effusion. ARF on CKD chk sputum clx follow wound clx add cefepime jailene dent brother @ b/s Kinjal Cottrell,Darleen Burdick MD Feb 11, 2017 23:02
[2017-02-12] VITALS (19 sets, daily range): BP systolic 98–124; BP diastolic 52–66; PULSE 70–92; RESP 10–18; TEMP 98–99; O2SAT 40–100
[2017-02-12] MEDS: CEFEPIME INJ 2,000 MG in SODIUM CHLORIDE 0.9% INJ 100 ML IV SCH ×2 (01:46→11:07)
[2017-02-12] MEDS: PROPOFOL 1000 MG/100 ML INJ 100 ML IV PRN ×3 (01:47→13:34)
[2017-02-12] MEDS: CHLORHEXIDINE GLUCONATE 2 % 1 PACK (2 CLOTHS) TOP SCH (02:52)
[2017-02-12] MEDS: ALBUMIN 25% INJ 100 ML IV SCH ×3 (03:13→18:31)
[2017-02-12] MEDS: RESP: ALBUTEROL 2.5 MG/IPRATROPIUM 0.5 MG NEB (SCH) INH ×5 (03:34→20:05)
[2017-02-12 05:08] LABS: HEMATOCRIT 28.7 % (35.0-46.0); MEAN CELL VOLUME 86.4 FL (80.0-100.0); MEAN CORPUSCULAR HEMOGLOBIN 28.3 PG (27.0-34.0); MEAN CORPUSCULAR HGB CONC 32.7 % (32.0-36.0); PLATELET COUNT 275 TH/MM3 (150-450); RED BLOOD COUNT 3.32 MIL/MM3 (4.00-5.30); RED CELL DISTRIBUTION WIDTH 25.5 % (11.6-17.2); WHITE BLOOD COUNT 7.8 TH/MM3 (4.0-11.0)
[2017-02-12 05:21] LABS: INTERNATIONAL NORMALIZED RATIO 1.4 RATIO; PROTHROMBIN TIME - PATIENT 16.1 SEC (9.8-11.6)
[2017-02-12 05:22] LABS: REVIEW FLAG FINAL
[2017-02-12 05:32] LABS: BICARBONATE 22.2 MEQ/L (21.0-32.0)
[2017-02-12] MEDS: INSULIN ASPART SUPPLEMENTAL SCALE SQ SCH ×3 (06:00→18:00)
[2017-02-12] MEDS: CHLORHEXIDINE 0.12% (ORAL KIT) 15 ML CUP MT SCH ×2 (08:00→21:18)
[2017-02-12] MEDS: FERROUS SULFATE 325 MG (65 MG ELEMENTAL IRON) TAB PO SCH ×2 (08:44→21:17)
[2017-02-12] MEDS: PANTOPRAZOLE SODIUM 40 MG VIAL IV PUSH SCH (08:44)
[2017-02-12] MEDS: AMIODARONE 200 MG TAB PO SCH (08:44)
[2017-02-12] MEDS: ARTIFICIAL TEARS OPTH SOLN 15 ML BTL EACH EYE SCH ×3 (08:44→18:00)
[2017-02-12] MEDS: LACTULOSE SYRUP 20 GM/30 ML CUP PO SCH ×4 (08:44→21:16)
[2017-02-12] MEDS: LEVOFLOXACIN 250 MG TAB PO SCH (08:44)
[2017-02-12] MEDS: DOCUSATE SODIUM 50 MG/SENNA 8.6 MG TAB PO SCH ×2 (08:44→21:17)
[2017-02-12] MEDS: SODIUM CHLORIDE 0.9% FLUSH 10 ML FLUSH IV FLUSH SCH ×2 (08:45→21:17)
[2017-02-12] MEDS ORDERED: MAGNESIUM CITRATE SOLN 300 ML BTL PO ONE (09:30)
[2017-02-12] MEDS ORDERED: METHYLNALTREXONE BROMIDE 12 MG/0.6 ML VIAL SQ ONE (09:30)
[2017-02-12] MEDS ORDERED: CHLOROTHIAZIDE SOD 500 MG VIAL IV ONE (09:45)
--- NOTE | 2017-02-12 09:46 | HHI.CCPN ---
Subjective Remarks/Hospital Course Hospital Course: This is a 71-year-old Afro-[place] female. Date of admission 02/04/2017. Past medical history includes diastolic congestive heart failure, COPD, chronic atrial fibrillation, diabetes, hypertension and history of MSSA infection on cefazolin. Patient presents to [facility] initially on 02/04 with left breast swelling. In November/2016, patient was diagnosed with endocarditis and AICD infection. At that time, Pacemaker removed . Since that time she's had increasing swelling in her left breast and currently has an abscess of the location 11.8 cm in size. She also complained of Shortness of breath. This is associated with a self-reported 50 pound weight gain with bilateral lower extremity edema and significant stomach swelling. She also reports shortness of breath. She was treated with cefazolin at home include 01/29/2017. After cessation of treatment, she noted The patient reports a significant increase in her left breast swelling over the past 2-3 days. She states the area is tender to palpation and painful. She does not have a leukocytosis. Breast ultrasound showed a complex cystic lesion measuring up to 11.8 cm in the left breast that could represent a fluid collection or old hematoma. Today in 02/10, patient ID of her left breast by Dr. Joy. 300 crystalloid. EBL 50. Urine output 60. Patient received 40 mg torsemide IV post procedure. Her oxygenation requirements increasing currently on BiPAP. She is currently unresponsive when seen in [facility]. She'll be intubated at the present time Subjective: 02/11: intubated overnight. now on vasopressors with fever. likely mixed cardiogenic/septic shock from a combination of volume overload and breast abscess. Also has significant bilateral pleural effusion, left > right by CXR and bedside ultrasound. significantly up in weight. respiratory failure likely from volume overload, although worsening acute kidney injury and shock complicates picture. 02/12: despite aggressive diuresis increasing to bumex drip, still net + and poor diuresis. may require dialysis if no improvement. remains borderline hypoglycemic. renal function continues to worsen. no BM x 2 days. peak pressures on vent elevated. CT chest yesterday without significant effusions but completely collapsed LLL, likely a large component of atelectasis from severe cardiomegaly, but cannot rule out pna. no meaningful improvements from yesterday. Objective Vital Signs Date Time Temp Pulse Resp B/P (MAP) Pulse Ox O2 Delivery O2 Flow Rate FiO2 02/12/17 09:25 40 40 02/12/17 07:00 Mechanical Ventilator 02/12/17 06:00 80 02/12/17 04:00 98.0 18 111/57 (75) 02/10/17 19:15 6 Intake and Output 02/12/17 02/12/17 02/13/17 08:00 16:00 00:00 Intake Total 1425 ml Output Total 1210 ml Balance 215 ml Result Diagram: 02/12/17 0440 02/12/17 0440 Other Results Laboratory Tests Test 02/11/17 16:20 Blood Gas Puncture Site LT RADIAL Blood Gas Patient Temperature 98.6 Blood Gas HCO3 22 mmol/L (22-26) Blood Gas Base Excess -1.3 mmol/L (-2-2) Blood Gas Oxygen Saturation 88 % (90-100) Arterial Blood pH 7.43 (7.380-7.420) Arterial Blood Partial Pressure CO2 34 mmHg (38-42) Arterial Blood Partial Pressure O2 58 mmHG (61-120) Arterial Blood Oxygen Content 11.6 Vol % (12.0-20.0) Arterial Blood Carboxyhemoglobin 2.0 % (0-4) Arterial Blood Methemoglobin 0.5 % (0-2) Blood Gas Hemoglobin 9.4 G/DL (12.0-16.0) Oxygen Delivery Device VENTILATOR Blood Gas Ventilator Setting PRVC/AC Blood Gas Inspired Oxygen 40 % Imaging Last Impressions Head CT 02/11/17 0000 Signed Impressions: Service Date/Time: Saturday, February 11, 2017 04:32 - CONCLUSION: Normal examination. Tyrone Simmons MD Renal Ultrasound 02/10/17 0000 Signed Impressions: Service Date/Time: Friday, February 10, 2017 23:06 - CONCLUSION: Normal examination. No evidence of obstruction or hydronephrosis.. Tyrone Simmons MD Chest X-Ray 02/10/17 0000 Signed Impressions: Service Date/Time: Friday, February 10, 2017 21:41 - CONCLUSION: 1. ET tube 1 cm from the anai. This can be pulled back 2 cm to be in a better position. 2. Cardiomegaly. Multiple electronic devices are seen over the chest. 3. Diffuse pulmonary consolidations likely representing edema. There is further atelectasis or consolidation the bases and probably bilateral effusions. Gregory Perry MD Breast Ultrasound 02/03/17 Signed Impressions: Service Date/Time: Friday, February 03, 2017 18:49 - CONCLUSION: Complex cystic lesion measuring up to 11.8 cm centered at the 12:00 position left breast. Given the clinical history of recent procedure in this area this could represent a noninfected or infected fluid collection. Given the complex internal architecture, percutaneous drainage will likely not be successful. Once the patient's condition permits, consider outpatient diagnostic mammogram and ultrasound followup. Gregory Bob MD ADDENDUM: Another consideration given the prior CT appearance and current imaging findings is an old hematoma. Gregory Bob MD Abdomen/Pelvis CT 02/03/17 Signed Impressions: Service Date/Time: Friday, February 03, 2017 17:35 - CONCLUSION: 1. CT findings characteristic of right heart insufficiency with diffuse but stable anasarca in the visible soft tissues and leaves of the mesentery as well as a small amount of ascites. Intrahepatic IVC is markedly dilated. 2. Previously identified bilateral pleural effusions are significantly improved with only a small amount of fluid on the left. There is some persistent atelectasis in the left base. 3. Heart size remains prominent. 4. Otherwise stable. Mt Alvarez MD Objective Remarks GENERAL: 71-year-old a female, lying in bed, intubated, sedated, critically ill appearing. SKIN: Warm and dry. No rash HEAD: Atraumatic. Normocephalic. EYES: Pupils equal and round bilaterally reactive. No scleral icterus. No injection or drainage. ENT: No nasal bleeding or discharge. Mucous membranes pink and moist. NECK: Trachea midline. large neck circumference prevents accurate assessment of JVD. orotracheally intubated CARDIOVASCULAR: Regular rate and rhythm. on levophed at 2 mcg/min. RESPIRATORY: PRVC. full support. decreased BS bilaterally. peak pressure 45, tv 500. fio2 40%. THORAX - left breast 12 o'clock position with PRISCILLA drain with sanguinous output. breast remains indurated and firm, no fluctuance. GASTROINTESTINAL: Abdomen soft, obese, nondistended. MUSCULOSKELETAL: Extremities 2+ lower extremity edema. No obvious deformities. NEUROLOGICAL: RASS -3. does not follow commands. intubated, sedated. A/P Assessment and Plan Assessment: 71yF with h/o ICM, prior EF reported at 15%, s/p placement of AICD, recovery of LVEF to 60%, AICD infection s/p lead extraction, now with breast abscess, septic shock, volume overload, acute Systolic CHF exacerbation, acute hypoxic respiratory failure, possibly early cardiogenic/mixed shock. very critically ill. No improvements since yesterday. worsening volume overload despite aggressive diuresis. remains on vasopressors. remains in shock. high peak pressures likely from combination of abdominal distension from constipation , atelectasis. will transition to APRV for lung protection to mitigate peak pressures and attempt to re-recruit volumes. check LFTs given persistent hypoglycemia. continue forced diuresis- may need HD today or tomorrow for volume removal. Neuro/Psych: Metabolic Encephalopathy - secondary to co2 retention and sepsis. Hyperammonemia Currently on propofol/fentanyl drips for sedation/analgesia while intubated Goal of RASS -[address] brain 02/10- negative for acute disease. CV: Acute CHF exacerbation: mixed type, including systolic, diastolic, and valvulopathy from severe tricuspid regurgitation. History arrhythmia/ chronic atrial fibrillation - LifeVest since 11/2016 Hypertension Coronary disease status post stent 3 Moderate to severe TR Septic Shock Acute intravascular volume overload 2-D echocardiogram revealed EF of 60%. Severe TR. PAP 33 mmHg, bedside critical care echo 02/11: moderately depressed LV function. clinically significant TR. hold metoprolol, enalapril, amlodipine for hypotension continue levophed for goal map > 65 mmHg. Previously on bumetanide 2 mg daily with KCl 10 mEq twice a day. increase bumex drip to 2mg/hr. add iv diuril 500mg x 1. continue concentrated albumin. Continue amiodarone 200 mg by mouth daily Dr. Feliciano - cardiology and Dr. Garcia, CT surgery following BNP greater than 4000 hold spironolactone given renal function. hold Sacibutril/Valsartan 51/49 while on vasopressors. Resp: Acute hypoxic respiratory failure Compressive atelectasis/consolidation LLL Possible LLL HCAP pneumonia Acute pulmonary edema Severe acute intravascular volume overload COPD - 3 L oxygen dependent switch to APRV 5:1, 33/0. check abg in an hour. Ventilator bundle Albuterol/ipratropium aerosols every 4 hours albuterol aerosols every 2 hours. Dyspnea Spontaneous breathing trials daily wean fio2 for goal spo2 > 90% CT chest 02/11: moderate right pleural effusion. densely consolidated LLL. severe cardiomegaly. no drainable effusion which is large enough to prevent pulmonary mechanics. GI: Hyperammonemia Acute protein calorie malnutrition - moderate Acute intravascular volume overload Obesity Constipation Abdominal Distension Patient is currently nothing by mouth NGT to LIWS Pantoprazole for GI prophylaxis Docusate sodium/senna for bowel regimen lactulose qid for elevated ammonia which is likely secondary to early congestive hepatopathy trend daily ammonias- some improvements. daily BMPs recheck LFTs diuresis as above. Increase bowel regimen to include mag citrate, dulcolax suppository, and methylnaltrexone. may need enema if no BM. abdominal distension and constipation is worsening pulmonary status. : Acute Kidney Injury- worsening. maintain ellis today. forced diuresis as above kidney injury likely multifactorial and combination of shock and venous congestion from volume overload. lungs and heart function require urgent forced diuresis given rising BNP, despite worsening renal function. Endo: Diabetes mellitus Hypoglycemia Will hold insulin detemir 27 units at night. Currently on sliding scale insulin with Novulog low regimen every 6 hours d10w @ 42cc/hr. Renal: Acute kidney injury in the setting of chronic kidney disease stage III Followed by nephrology/by Dr. Love Avoid nephrotoxic drugs may need TIMING INSPECTOR in the near future. Heme: Normocytic anemia Chronic warfarin use Currently holding warfarin 4 mg daily. Repeat CBC and INR daily Does not meet transfusion threshold at this time Currently on iron sulfate 325 mg by mouth twice a day ID: Escherichia coli UTI History of MSSA abscess to left breast Pertinent cultures 02/08 - urine - gram-negative bela 02/04 - blood cultures 2- no growth 02/03 - urine - Escherichia coli Followed by Dr. Tamayo/ID Currently on levofloxacin 250 mg daily and cefepime. FEN: Replace electrolytes as clinically indicated MSK: Postop day #2 I&D left breast hematoma by Dr. Joy PT evaluate and treat Access - Utilize peripheral IV. Continue to use right upper extremity single lumen PICC line. Central line if indicated Prophylaxis - GI - pantoprazole - DVT - SCD/holding pharmacological prophylaxis until okay WITH SURGERY Critical care time 62 minutes, exclusive of separately billable procedures. Sanket Rodarte MD 15, 2017 09:46
[2017-02-12 10:43] LABS: BLOOD GAS BASE EXCESS -2.2 mmol/L (-2-2); BLOOD GAS HCO3 22 mmol/L (22-26); BLOOD GAS METHEMOGLOBIN 0.8 % (0-2); BLOOD GAS O2 HGB SATURATION 96 % (90-100); BLOOD GAS OXYGEN CONTENT 12.9 Vol % (12.0-20.0); BLOOD GAS PCO2 35 mmHg (38-42); BLOOD GAS PO2 116 mmHg (61-120); BLOOD GAS TOTAL HGB 9.4 G/DL (12.0-16.0); TEMP CORR TO 98.6
[2017-02-12 10:44] LABS: CRITICAL VALUE NO; DRAW SITE ART LINE; FIO2 40 %; OXYGEN DEVICE VENTILATOR
[2017-02-12 10:45] LABS: NUMBER OF ARTERIAL PUNCTURES 0; STAT NO; ULNAR PULSE PRESENT
[2017-02-12 11:21] LABS: INDIRECT BILIRUBIN 0.4 MG/DL (0.0-0.8); TOTAL BILIRUBIN ADULT 0.9 MG/DL (0.2-1.0)
[2017-02-12] MEDS: POLYETHYLENE GLYCOL 17 GM PKG PO SCH ×2 (11:53→21:17)
[2017-02-12] MEDS: BUMETANIDE INJ 100 ML IV SCH ×2 (11:55→23:30)
--- NOTE | 2017-02-12 12:43 | PD.CAR.PN ---
CVT Progress Note Subjective/Hospital Course: A 71-year-old female known to our service, under removal of AICD, laser extraction of the lead done 12/18/2016 after being diagnosed with sepsis. The patient presented on this admission with increased swelling of her left breast. She reported a 50 pound weight gain with bilateral lower extremity, significant abdominal swelling, shortness of breath. The left breast was very swollen where her pacemaker had been removed. She grew MSSA on her blood cultures on her last admission and was discharged with home infusion of antibiotics which she completed 01/29/2017. The complaint of the left breast being very painful to palpation. CT of the abdomen and pelvis showed some stable anasarca with small amount of ascites, also some bilateral small effusions. The breast ultrasound showed a cystic lesion measuring 11.8 cm in the left breast at 12 o'clock. We were consulted for possible fluid collection versus hematoma. Her hemoglobin was 7.4 and 24. PAST MEDICAL HISTORY The past medical history includes chronic atrial fibrillation on Coumadin, COPD, CHF, diabetes mellitus, hypertension. surgery: Incision and drainage of left breast hematoma Operation and Findings: The previous AICD pocket incision was opened and ~600ml of brown tinged serous fluid was drained from the chest wall behind and involving the left breast. The fluid was submitted for cultures. The wound was copiously irrigated. 02/10 postop pt had worsening resp acidosis failure hypoxemia, ph 7.12/ co2 77 , despite demadex and Bipap , she was emergently intubated 02/11 she remains in ISC sedated on vent left breast slightly improved , less swelling, , MARCOS left in place , drained 65cc / 12 hrs / bloody drainage still has significant sacral and lower ext edema 02/12 pt remains on vent, sedated, will open eyes and grimace MARCOS drain removed, pressure dressing in place on Levo gtt at 2 mcq, and Bumex gtt still very edematous / 3rd spaced Objective: GENERAL: seated on vent SKIN: Warm and dry. HEAD: Normocephalic. EYES: No scleral icterus. No injection or drainage. NECK: Supple, trachea midline. No JVD or lymphadenopathy. CARDIOVASCULAR: Regular rate and rhythm without murmurs, gallops, or rubs. + general edema, sacral edema + 2 edema lower ext RESPIRATORY: Breath sounds equal bilaterally. No accessory muscle use. orally intubated on vent / coarse bilateral breath sounds GASTROINTESTINAL: Abdomen soft, non-tender, nondistended. MUSCULOSKELETAL: No cyanosis, or edema. BACK: Nontender without obvious deformity. No CVA tenderness. Vital Signs Date Time Temp Pulse Resp B/P (MAP) Pulse Ox O2 Delivery O2 Flow Rate FiO2 02/12/17 12:00 89 02/12/17 12:00 40 02/12/17 12:00 98.8 89 14 122/66 (84) 100 02/12/17 11:22 100 40 02/12/17 10:00 85 02/12/17 09:25 40 40 02/12/17 08:00 98.3 78 18 98/53 (68) 100 02/12/17 08:00 45 02/12/17 08:00 79 02/12/17 07:59 100 40 02/12/17 07:00 100 Mechanical Ventilator 50 02/12/17 06:00 80 02/12/17 04:00 78 02/12/17 04:00 98.0 78 18 111/57 (75) 100 02/12/17 04:00 45 02/12/17 03:57 100 45 02/12/17 02:00 78 02/12/17 01:23 100 45 02/12/17 00:00 98.0 70 18 101/52 (68) 100 02/12/17 00:00 55 02/12/17 00:00 76 02/11/17 22:00 100 100 02/11/17 22:00 84 02/11/17 21:55 100 55 02/11/17 21:40 75 103/58 02/11/17 20:00 98.2 70 18 103/56 (72) 100 02/11/17 20:00 70 02/11/17 20:00 55 02/11/17 19:52 100 55 02/11/17 19:00 100 Mechanical Ventilator 50 02/11/17 18:00 73 02/11/17 16:05 100 40 02/11/17 16:00 50 02/11/17 16:00 98.3 69 18 108/59 (75) 100 02/11/17 16:00 69 02/11/17 14:00 68 Labs: Laboratory Tests Test 02/12/17 04:40 02/12/17 10:36 White Blood Count 7.8 TH/MM3 (4.0-11.0) Red Blood Count 3.32 MIL/MM3 (4.00-5.30) Hemoglobin 9.4 GM/DL (11.6-15.3) Hematocrit 28.7 % (35.0-46.0) Mean Corpuscular Volume 86.4 FL (80.0-100.0) Mean Corpuscular Hemoglobin 28.3 PG (27.0-34.0) Mean Corpuscular Hemoglobin Concent 32.7 % (32.0-36.0) Red Cell Distribution Width 25.5 % (11.6-17.2) Platelet Count 275 TH/MM3 (150-450) Mean Platelet Volume 6.5 FL (7.0-11.0) Prothrombin Time 16.1 SEC (9.8-11.6) Prothromb Time International Ratio 1.4 RATIO Activated Partial Thromboplast Time 35.0 SEC (24.3-30.1) Blood Urea Nitrogen 32 MG/DL (7-18) Creatinine 2.15 MG/DL (0.50-1.00) Random Glucose 82 MG/DL (74-106) Calcium Level 8.0 MG/DL (8.5-10.1) Sodium Level 140 MEQ/L (136-145) Potassium Level 4.0 MEQ/L (3.5-5.1) Chloride Level 108 MEQ/L (98-107) Carbon Dioxide Level 22.2 MEQ/L (21.0-32.0) Anion Gap 10 MEQ/L (5-15) Estimat Glomerular Filtration Rate 27 ML/MIN (>89) Total Bilirubin 0.9 MG/DL (0.2-1.0) Direct Bilirubin 0.5 MG/DL (0.0-0.2) Indirect Bilirubin 0.4 MG/DL (0.0-0.8) Aspartate Amino Transf (AST/SGOT) 21 U/L (15-37) Alanine Aminotransferase (ALT/SGPT) 12 U/L (10-53) Alkaline Phosphatase 75 U/L (45-117) Ammonia 32 MCMOL/L (11-32) B-Type Natriuretic Peptide 1629 PG/ML (0-100) Total Protein 6.8 GM/DL (6.4-8.2) Albumin 3.0 GM/DL (3.4-5.0) Blood Gas Puncture Site ART LINE Blood Gas Patient Temperature 98.6 Blood Gas HCO3 22 mmol/L (22-26) Blood Gas Base Excess -2.2 mmol/L (-2-2) Blood Gas Oxygen Saturation 96 % (90-100) Arterial Blood pH 7.42 (7.380-7.420) Arterial Blood Partial Pressure CO2 35 mmHg (38-42) Arterial Blood Partial Pressure O2 116 mmHg (61-120) Arterial Blood Oxygen Content 12.9 Vol % (12.0-20.0) Arterial Blood Carboxyhemoglobin 2.0 % (0-4) Arterial Blood Methemoglobin 0.8 % (0-2) Blood Gas Hemoglobin 9.4 G/DL (12.0-16.0) Oxygen Delivery Device VENTILATOR Blood Gas Ventilator Setting Blood Gas Inspired Oxygen 40 % Result Diagram: 02/12/1743902/12/17439 (1) Cellulitis of left breast Plan: s/p I&D left breast marcos drain removed culture neg to date (2) Anemia Plan: HGB stable 9.5 (3) CKD (chronic kidney disease), stage III Plan: nephrology following (4) COPD with acute exacerbation (5) Respiratory failure with hypercapnia Plan: intubated on vent per [facility] CXR noted : bibasilar consolidation / effusion Sondra Farias Feb 12, 2017 12:43
[2017-02-12] MEDS: fentaNYL DRIP 250 ML IV PRN (13:35)
--- NOTE | 2017-02-12 14:44 | HHI.NPPN ---
Subjective History of Present Illness 71 year old female with ARF/CHF.Hematoma Left breast Additional Remarks intubated Objective Data Data 02/12/17 02/13/17 19:00 07:00 Intake Total 399 ml Balance 399 ml IV Total 399 ml Vital Signs Date Time Temp Pulse Resp B/P (MAP) Pulse Ox O2 Delivery O2 Flow Rate FiO2 02/12/17 14:00 83 02/12/17 12:00 89 02/12/17 12:00 40 02/12/17 12:00 98.8 89 14 122/66 (84) 100 02/12/17 11:30 88 99/54 02/12/17 11:22 100 40 02/12/17 10:00 85 02/12/17 09:25 40 40 02/12/17 08:00 98.3 78 18 98/53 (68) 100 02/12/17 08:00 45 02/12/17 08:00 79 02/12/17 07:59 100 40 02/12/17 07:00 100 Mechanical Ventilator 50 02/12/17 06:00 80 02/12/17 04:00 78 02/12/17 04:00 98.0 78 18 111/57 (75) 100 02/12/17 04:00 45 02/12/17 03:57 100 45 02/12/17 02:00 78 02/12/17 01:23 100 45 02/12/17 00:00 98.0 70 18 101/52 (68) 100 02/12/17 00:00 55 02/12/17 00:00 76 02/11/17 22:00 100 100 02/11/17 22:00 84 02/11/17 21:55 100 55 02/11/17 21:40 75 103/58 02/11/17 20:00 98.2 70 18 103/56 (72) 100 02/11/17 20:00 70 02/11/17 20:00 55 02/11/17 19:52 100 55 02/11/17 19:00 100 Mechanical Ventilator 50 02/11/17 18:00 73 02/11/17 16:05 100 40 02/11/17 16:00 50 02/11/17 16:00 98.3 69 18 108/59 (75) 100 02/11/17 16:00 69 -: 02/12/17 0440 02/12/17 0440 Microbiology 02/12/17 Gram Stain - Final, Resulted 02/12/17 Sputum Culture, Resulted Pending Physical Exam General Appearance: Well Developed Neck Neck Exam: Neck Supple Pulmonary Resp Exam: Decreased Bases Cardiology CV Exam: Arrhythmia Gastrointestinal/Abdomen GI Exam: Soft, Distended Extremeties Extremities Exam: Pitting Edema Assessment/Plan Problem List: (1) HARVEY (acute kidney injury) ICD Codes: N17.9 - Acute kidney failure, unspecified Status: Acute Plan: Patient has congestive heart failure poor response to diuresis on Bumex drip at 2 mg/hr increased to max UOP improved modestly consider dialysis Avoid nephrotoxins follow BMP (2) Hematoma (nontraumatic) of breast ICD Codes: N64.89 - Other specified disorders of breast Plan: Surgically operated on (3) Bilateral lower extremity edema ICD Codes: R60.0 - Bilateral lower extremity edema Status: Acute Plan: Due to congestive heart failure (4) CHF (congestive heart failure) ICD Codes: I50.9 - CHF (congestive heart failure) Status: Chronic Plan: With acute decompensation Lasix ordered after surgery (5) UTI (urinary tract infection) ICD Codes: N39.0 - UTI (urinary tract infection) Status: Acute Plan: Gram-negative Enterobacter cefepime Problem Qualifiers (1) CHF (congestive heart failure): Qualified Codes: I50.33 - Acute on chronic diastolic (congestive) heart failure Laurel Love MD Feb 12, 2017 14:44
[2017-02-12 15:55] LABS: BLOOD GAS BASE EXCESS -4.2 mmol/L (-2-2); BLOOD GAS CARBOXYHEMOGLOBIN 1.7 % (0-4); BLOOD GAS HCO3 22 mmol/L (22-26); BLOOD GAS METHEMOGLOBIN 0.9 % (0-2); BLOOD GAS O2 HGB SATURATION 97 % (90-100); BLOOD GAS OXYGEN CONTENT 13.6 Vol % (12.0-20.0); BLOOD GAS PCO2 52 mmHg (38-42); BLOOD GAS PO2 170 mmHg (61-120); BLOOD GAS TOTAL HGB 9.7 G/DL (12.0-16.0); CRITICAL VALUE YES; OXYGEN DEVICE VENTILATOR; TEMP CORR TO 98.6
[2017-02-12 15:56] LABS: DRAW SITE ART LINE; FIO2 40 %; NUMBER OF ARTERIAL PUNCTURES 0; STAT NO; ULNAR PULSE PRESENT; VENT SETTINGS APRV
[2017-02-12] MEDS: NOREPINEPHRINE INJ 4 MG in SODIUM CHLOR 0.9% 250 ML INJ 246 ML IV PRN (16:03)
[2017-02-12] MEDS: DEXTROSE 10% INJ 1,000 ML IV SCH (18:38)
--- NOTE | 2017-02-12 19:22 | HHI.IDPN ---
Subjective Subjective Remarks hemodynamically unstable, hypotensive On levaphed, up to 12 mcgs now On vent Massively fluid overload afebrile, hypothermia resolved Antibiotics levaquine Allergies: Coded Allergies: penicillin G (Unverified Allergy, Severe, rash, 12/31/16) benazepril (Unverified Allergy, Mild, 12/31/16) HUMBLE inhibitor angioedema, swelling of the face lips and anterior tongue captopril (Unverified Allergy, Mild, 12/31/16) HUMBLE inhibitor angioedema, swelling of the face lips and anterior tongue enalaprilat (Unverified Allergy, Mild, 12/31/16) HUMBLE inhibitor angioedema, swelling of the face lips and anterior tongue fosinopril (Unverified Allergy, Mild, 12/31/16) HUMBLE inhibitor angioedema, swelling of the face lips and anterior tongue lisinopril (Unverified Allergy, Mild, 12/31/16) HUMBLE inhibitor angioedema, swelling of the face lips and anterior tongue quinapril (Unverified Allergy, Mild, 12/31/16) HUMBLE inhibitor angioedema, swelling of the face lips and anterior tongue Uncoded Allergies: NON COMPATIBLE PACEMAKER (Adverse Reaction, Severe, MRI PRECAUTION / PACEMAKER, 11/03/14) MRI PRECAUTION. PACEMAKER Objective . Vital Signs Date Time Temp Pulse Resp B/P (MAP) Pulse Ox O2 Delivery O2 Flow Rate FiO2 02/12/17 18:00 88 02/12/17 16:03 92 104/55 02/12/17 16:00 99.0 92 12 124/55 (78) 100 02/12/17 16:00 40 02/12/17 16:00 92 02/12/17 15:18 100 40 02/12/17 14:00 83 02/12/17 14:00 87 89/51 02/12/17 12:00 89 02/12/17 12:00 40 02/12/17 12:00 98.8 89 14 122/66 (84) 100 02/12/17 11:30 88 99/54 02/12/17 11:22 100 40 02/12/17 10:00 85 02/12/17 09:25 40 40 02/12/17 08:00 98.3 78 18 98/53 (68) 100 02/12/17 08:00 45 02/12/17 08:00 79 02/12/17 07:59 100 40 02/12/17 07:00 100 Mechanical Ventilator 50 02/12/17 06:00 80 02/12/17 04:00 78 02/12/17 04:00 98.0 78 18 111/57 (75) 100 02/12/17 04:00 45 02/12/17 03:57 100 45 02/12/17 02:00 78 02/12/17 01:23 100 45 02/12/17 00:00 98.0 70 18 101/52 (68) 100 02/12/17 00:00 55 02/12/17 00:00 76 02/11/17 22:00 100 100 02/11/17 22:00 84 02/11/17 21:55 100 55 02/11/17 21:40 75 103/58 02/11/17 20:00 98.2 70 18 103/56 (72) 100 02/11/17 20:00 70 02/11/17 20:00 55 02/11/17 19:52 100 55 02/12/17 02/12/17 02/13/17 15:00 23:00 07:00 Intake Total 399 ml 735 ml Output Total 750 ml Balance 399 ml -15 ml IV Total 399 ml 735 ml Output Urine Total 750 ml # Bowel Movements 0 . Laboratory Tests Test 02/11/17 05:30 02/12/17 04:40 White Blood Count 8.9 TH/MM3 7.8 TH/MM3 Red Blood Count 3.36 MIL/MM3 3.32 MIL/MM3 Hemoglobin 9.5 GM/DL 9.4 GM/DL Hematocrit 29.0 % 28.7 % Mean Corpuscular Volume 86.2 FL 86.4 FL Mean Corpuscular Hemoglobin 28.3 PG 28.3 PG Mean Corpuscular Hemoglobin Concent 32.9 % 32.7 % Red Cell Distribution Width 24.9 % 25.5 % Platelet Count 323 TH/MM3 275 TH/MM3 Mean Platelet Volume 6.5 FL 6.5 FL Neutrophils (%) (Auto) 76.3 % Lymphocytes (%) (Auto) 11.1 % Monocytes (%) (Auto) 11.3 % Eosinophils (%) (Auto) 0.7 % Basophils (%) (Auto) 0.6 % Neutrophils # (Auto) 6.8 TH/MM3 Lymphocytes # (Auto) 1.0 TH/MM3 Monocytes # (Auto) 1.0 TH/MM3 Eosinophils # (Auto) 0.1 TH/MM3 Basophils # (Auto) 0.1 TH/MM3 CBC Comment DIFF FINAL Differential Comment Laboratory Tests Test 02/11/17 05:30 02/12/17 04:40 Blood Urea Nitrogen 33 MG/DL 32 MG/DL Creatinine 2.00 MG/DL 2.15 MG/DL Random Glucose 72 MG/DL 82 MG/DL Calcium Level 8.1 MG/DL 8.0 MG/DL Phosphorus Level 2.7 MG/DL Magnesium Level 1.6 MG/DL Sodium Level 141 MEQ/L 140 MEQ/L Potassium Level 4.3 MEQ/L 4.0 MEQ/L Chloride Level 109 MEQ/L 108 MEQ/L Carbon Dioxide Level 21.7 MEQ/L 22.2 MEQ/L Anion Gap 10 MEQ/L 10 MEQ/L Estimat Glomerular Filtration Rate 30 ML/MIN 27 ML/MIN Lactic Acid Level 1.0 mmol/L Total Bilirubin 0.9 MG/DL 0.9 MG/DL Direct Bilirubin 0.6 MG/DL 0.5 MG/DL Indirect Bilirubin 0.3 MG/DL 0.4 MG/DL Aspartate Amino Transf (AST/SGOT) 16 U/L 21 U/L Alanine Aminotransferase (ALT/SGPT) 9 U/L 12 U/L Alkaline Phosphatase 89 U/L 75 U/L Ammonia 54 MCMOL/L 32 MCMOL/L Total Protein 6.2 GM/DL 6.8 GM/DL Albumin 2.2 GM/DL 3.0 GM/DL Amylase Level 73 U/L Lipase 35 U/L Thyroid Stimulating Hormone 3rd Gen 4.540 uIU/ML B-Type Natriuretic Peptide 1629 PG/ML Microbiology Date/Time Source Procedure Growth Status 02/10/17 17:33 Fluid Other Fungal Smear - Final NO FUNGAL ELEMENTS SEEN. Resulted 02/10/17 17:33 Fluid Other Fungal Culture Pending Resulted 02/10/17 17:33 Fluid Other Acid Fast Stain - Final NO ACID FAST BACILLI SEEN Resulted 02/10/17 17:33 Fluid Other Mycobacterial Culture Pending Resulted 02/10/17 17:33 Fluid Other Gram Stain - Final Resulted 02/10/17 17:33 Fluid Other Body Fluid Culture - Preliminary NO GROWTH IN 48 HOURS. Resulted 02/12/17 00:30 Sputum Endotracheal Gram Stain - Final Resulted 02/12/17 00:30 Sputum Endotracheal Sputum Culture Pending Resulted 02/10/17 17:33 Wound Other Fungal Smear - Final NO FUNGAL ELEMENTS SEEN. Resulted 02/10/17 17:33 Wound Other Fungal Culture Pending Resulted 02/10/17 17:33 Wound Other Acid Fast Stain - Final NO ACID FAST BACILLI SEEN Resulted 02/10/17 17:33 Wound Other Mycobacterial Culture Pending Resulted 02/10/17 17:33 Wound Other Gram Stain - Final Resulted 02/10/17 17:33 Wound Other Wound Culture - Preliminary NO GROWTH IN 48 HOURS. Resulted Imaging Last Impressions Head CT 02/11/17 0000 Signed Impressions: Service Date/Time: Saturday, February 11, 2017 04:32 - CONCLUSION: Normal examination. Tyrone Simmons MD Chest CT 02/11/17 0000 Signed Impressions: Service Date/Time: Saturday, February 11, 2017 22:16 - CONCLUSION: Heart is quite enlarged. ET tube is in good position. There is a dense consolidation involving almost the entire left lower lobe with small left pleural effusion. There is a moderate size right pleural effusion measuring 3.2 x 6.0 cm across. Tyrone Simmons MD Renal Ultrasound 02/10/17 0000 Signed Impressions: Service Date/Time: Friday, February 10, 2017 23:06 - CONCLUSION: Normal examination. No evidence of obstruction or hydronephrosis.. Tyrone Simmons MD Chest X-Ray 02/10/17 0000 Signed Impressions: Service Date/Time: Friday, February 10, 2017 21:41 - CONCLUSION: 1. ET tube 1 cm from the anai. This can be pulled back 2 cm to be in a better position. 2. Cardiomegaly. Multiple electronic devices are seen over the chest. 3. Diffuse pulmonary consolidations likely representing edema. There is further atelectasis or consolidation the bases and probably bilateral effusions. Gregory Perry MD Breast Ultrasound 02/03/17 0000 Signed Impressions: Service Date/Time: Friday, February 03, 2017 18:49 - CONCLUSION: Complex cystic lesion measuring up to 11.8 cm centered at the 12:00 position left breast. Given the clinical history of recent procedure in this area this could represent a noninfected or infected fluid collection. Given the complex internal architecture, percutaneous drainage will likely not be successful. Once the patient's condition permits, consider outpatient diagnostic mammogram and ultrasound followup. Gregory Bob MD ADDENDUM: Another consideration given the prior CT appearance and current imaging findings is an old hematoma. Gregory Bob MD Abdomen/Pelvis CT 02/03/17 0000 Signed Impressions: Service Date/Time: Friday, February 03, 2017 17:35 - CONCLUSION: 1. CT findings characteristic of right heart insufficiency with diffuse but stable anasarca in the visible soft tissues and leaves of the mesentery as well as a small amount of ascites. Intrahepatic IVC is markedly dilated. 2. Previously identified bilateral pleural effusions are significantly improved with only a small amount of fluid on the left. There is some persistent atelectasis in the left base. 3. Heart size remains prominent. 4. Otherwise stable. Mt Alvarez MD Physical Exam CONSTITUTIONAL/GENERAL: This is an adequately nourished patient, in no apparent distress. TUBES/LINES/DRAINS: SKIN: No jaundice, rashes, or lesions. Skin temperature appropriate. Not diaphoretic. L breast dressing in place HEENT: orally intubated CARDIOVASCULAR: Regular rate and rhythm without murmurs, gallops, or rubs. No JVD. Peripheral pulses symmetric. RESPIRATORY/CHEST: Symmetric, unlabored respirations. Clear to auscultation. Breath sounds equal bilaterally. No wheezes, rales, or rhonchi. GASTROINTESTINAL: Abdomen soft, non-tender, distended with prominent edema. No hepato-splenomegaly, or palpable masses. No guarding. Bowel sounds present. GENITOURINARY: Without palpable bladder distension. Wolff catheter in place with clear light yellow urine MUSCULOSKELETAL: Extremities without clubbing, cyanosis, Massive edema , anasarca LUE with tight non pitting edema . No joint tenderness or effusion noted. No calf tenderness. No mottling or clubbing. LYMPHATICS: No palpable cervical or supraclavicular adenopathy. 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 LLL PNA vs atelectatic changes CHF with fluid oveload Probably asymptomati asymptomatic bacteriuria Acute VDRF ? PNA CT from 02/11/17 showed a dense consolidation involving almost the entire left lower lobe with small left pleural effusion. ARF on CKD, worsening creatinine Critically ill and unstable fu sputum clx follow wound clx cont cefepime, levaquine dw Darleen Abad MD Feb 12, 2017 19:22
[2017-02-12] MEDS: NOREPINEPHRINE INJ 16 MG in SODIUM CHLOR 0.9% 250 ML INJ 234 ML IV PRN (22:00)
[2017-02-13] VITALS (18 sets, daily range): BP systolic 104–148; BP diastolic 46–89; PULSE 79–99; RESP 10–16; TEMP 97.7–99.2; O2SAT 100
[2017-02-13] MEDS: CEFEPIME INJ 2,000 MG in SODIUM CHLORIDE 0.9% INJ 100 ML IV SCH ×2 (00:23→11:43)
[2017-02-13] MEDS: RESP: ALBUTEROL 2.5 MG/IPRATROPIUM 0.5 MG NEB (SCH) INH ×6 (00:36→20:08)
[2017-02-13] MEDS: ALBUMIN 25% INJ 100 ML IV SCH ×3 (02:32→18:28)
[2017-02-13] MEDS: CHLORHEXIDINE GLUCONATE 2 % 1 PACK (2 CLOTHS) TOP SCH (04:00)
[2017-02-13 04:02] LABS: HEMATOCRIT 29.2 % (35.0-46.0); MEAN CELL VOLUME 86.2 FL (80.0-100.0); MEAN CORPUSCULAR HGB CONC 32.5 % (32.0-36.0); PLATELET COUNT 276 TH/MM3 (150-450); RED BLOOD COUNT 3.39 MIL/MM3 (4.00-5.30); RED CELL DISTRIBUTION WIDTH 24.7 % (11.6-17.2); WHITE BLOOD COUNT 11.1 TH/MM3 (4.0-11.0)
[2017-02-13 04:03] LABS: REVIEW FLAG FINAL
[2017-02-13 04:13] LABS: APTT (PATIENT) 41.4 SEC (24.3-30.1); INTERNATIONAL NORMALIZED RATIO 1.5 RATIO; PROTHROMBIN TIME - PATIENT 16.5 SEC (9.8-11.6)
[2017-02-13 04:54] LABS: BICARBONATE 21.9 MEQ/L (21.0-32.0); POTASSIUM 4.1 MEQ/L (3.5-5.1)
[2017-02-13 04:56] LABS: INDIRECT BILIRUBIN 0.5 MG/DL (0.0-0.8); TOTAL BILIRUBIN ADULT 1.5 MG/DL (0.2-1.0)
[2017-02-13] MEDS: INSULIN ASPART SUPPLEMENTAL SCALE SQ SCH ×4 (06:00→18:00)
[2017-02-13] MEDS ORDERED: CHLOROTHIAZIDE SOD 500 MG VIAL IV ONE (06:15)
[2017-02-13] MEDS: CHLORHEXIDINE 0.12% (ORAL KIT) 15 ML CUP MT SCH ×2 (08:00→21:08)
--- NOTE | 2017-02-13 08:54 | HHI.CCPN ---
Subjective Remarks/Hospital Course Hospital Course: This is a 71-year-old Afro-[place] female. Date of admission 02/04/2017. Past medical history includes diastolic congestive heart failure, COPD, chronic atrial fibrillation, diabetes, hypertension and history of MSSA infection on cefazolin. Patient presents to [facility] initially on 02/04 with left breast swelling. In November/2016, patient was diagnosed with endocarditis and AICD infection. At that time, Pacemaker removed . Since that time she's had increasing swelling in her left breast and currently has an abscess of the location 11.8 cm in size. She also complained of Shortness of breath. This is associated with a self-reported 50 pound weight gain with bilateral lower extremity edema and significant stomach swelling. She also reports shortness of breath. She was treated with cefazolin at home include 01/29/2017. After cessation of treatment, she noted The patient reports a significant increase in her left breast swelling over the past 2-3 days. She states the area is tender to palpation and painful. She does not have a leukocytosis. Breast ultrasound showed a complex cystic lesion measuring up to 11.8 cm in the left breast that could represent a fluid collection or old hematoma. Today in 02/10, patient ID of her left breast by Dr. Joy. 300 crystalloid. EBL 50. Urine output 60. Patient received 40 mg torsemide IV post procedure. Her oxygenation requirements increasing currently on BiPAP. She is currently unresponsive when seen in [facility]. She'll be intubated at the present time Subjective: 02/11: intubated overnight. now on vasopressors with fever. likely mixed cardiogenic/septic shock from a combination of volume overload and breast abscess. Also has significant bilateral pleural effusion, left > right by CXR and bedside ultrasound. significantly up in weight. respiratory failure likely from volume overload, although worsening acute kidney injury and shock complicates picture. 02/12: despite aggressive diuresis increasing to bumex drip, still net + and poor diuresis. may require dialysis if no improvement. remains borderline hypoglycemic. renal function continues to worsen. no BM x 2 days. peak pressures on vent elevated. CT chest yesterday without significant effusions but completely collapsed LLL, likely a large component of atelectasis from severe cardiomegaly, but cannot rule out pna. no meaningful improvements from yesterday. 11/16: much improved diuresis yesterday and now net negative 1.7L/24h. Cr still uptrending, but only slightly. pulmonary compliance also has improved with overnight APRV. discussed care with Dr. Garcia and we both agree that inhaled epoprostenol may be of benefit in assisting with RV function to mitigate severe TR and assist with diuresis and hemodynamics. ammonia up slightly, although now having regular bowel movements. Objective Vital Signs Date Time Temp Pulse Resp B/P (MAP) Pulse Ox O2 Delivery O2 Flow Rate FiO2 02/13/17 06:00 92 02/13/17 06:00 103/49 02/13/17 04:00 40 02/13/17 04:00 98.4 16 100 02/12/17 19:00 Mechanical Ventilator 02/10/17 19:15 6 Intake and Output 02/13/17 02/13/17 02/14/17 08:00 16:00 00:00 Intake Total 952 ml Output Total 3350 ml Balance -2398 ml Result Diagram: 02/13/17 0353 02/13/17 0353 Other Results Microbiology Date/Time Source Procedure Growth Status 02/10/17 17:33 Fluid Other Gram Stain - Final Complete 02/10/17 17:33 Fluid Other Body Fluid Culture - Final NO GROWTH IN 72 HRS.--AEROBICALLY OR ... Complete 02/10/17 17:33 Wound Other Gram Stain - Final Complete 02/10/17 17:33 Wound Other Wound Culture - Final NO GROWTH IN 72 HRS.--AEROBICALLY OR ... Complete Laboratory Tests Test 02/12/17 10:36 02/12/17 15:47 Blood Gas Puncture Site ART LINE ART LINE Blood Gas Patient Temperature 98.6 98.6 Blood Gas HCO3 22 mmol/L (22-26) 22 mmol/L (22-26) Blood Gas Base Excess -2.2 mmol/L (-2-2) -4.2 mmol/L (-2-2) Blood Gas Oxygen Saturation 96 % (90-100) 97 % (90-100) Arterial Blood pH 7.42 (7.380-7.420) 7.25 (7.380-7.420) Arterial Blood Partial Pressure CO2 35 mmHg (38-42) 52 mmHg (38-42) Arterial Blood Partial Pressure O2 116 mmHg (61-120) 170 mmHg (61-120) Arterial Blood Oxygen Content 12.9 Vol % (12.0-20.0) 13.6 Vol % (12.0-20.0) Arterial Blood Carboxyhemoglobin 2.0 % (0-4) 1.7 % (0-4) Arterial Blood Methemoglobin 0.8 % (0-2) 0.9 % (0-2) Blood Gas Hemoglobin 9.4 G/DL (12.0-16.0) 9.7 G/DL (12.0-16.0) Oxygen Delivery Device VENTILATOR VENTILATOR Blood Gas Ventilator Setting APRV Blood Gas Inspired Oxygen 40 % 40 % Imaging Last Impressions Head CT 02/11/17 0000 Signed Impressions: Service Date/Time: Saturday, February 11, 2017 04:32 - CONCLUSION: Normal examination. Tyrone Simmons MD Renal Ultrasound 02/10/17 0000 Signed Impressions: Service Date/Time: Friday, February 10, 2017 23:06 - CONCLUSION: Normal examination. No evidence of obstruction or hydronephrosis.. Tyrone Simmons MD Chest X-Ray 02/10/17 0000 Signed Impressions: Service Date/Time: Friday, February 10, 2017 21:41 - CONCLUSION: 1. ET tube 1 cm from the anai. This can be pulled back 2 cm to be in a better position. 2. Cardiomegaly. Multiple electronic devices are seen over the chest. 3. Diffuse pulmonary consolidations likely representing edema. There is further atelectasis or consolidation the bases and probably bilateral effusions. Gregory Perry MD Breast Ultrasound 02/03/17 0000 Signed Impressions: Service Date/Time: Friday, February 03, 2017 18:49 - CONCLUSION: Complex cystic lesion measuring up to 11.8 cm centered at the 12:00 position left breast. Given the clinical history of recent procedure in this area this could represent a noninfected or infected fluid collection. Given the complex internal architecture, percutaneous drainage will likely not be successful. Once the patient's condition permits, consider outpatient diagnostic mammogram and ultrasound followup. Gregory Bob MD ADDENDUM: Another consideration given the prior CT appearance and current imaging findings is an old hematoma. Gregory Bob MD Abdomen/Pelvis CT 02/03/17 0000 Signed Impressions: Service Date/Time: Friday, February 03, 2017 17:35 - CONCLUSION: 1. CT findings characteristic of right heart insufficiency with diffuse but stable anasarca in the visible soft tissues and leaves of the mesentery as well as a small amount of ascites. Intrahepatic IVC is markedly dilated. 2. Previously identified bilateral pleural effusions are significantly improved with only a small amount of fluid on the left. There is some persistent atelectasis in the left base. 3. Heart size remains prominent. 4. Otherwise stable. Mt Alvarez MD Objective Remarks GENERAL: 71-year-old a female, lying in bed, intubated, sedated, critically ill appearing. SKIN: Warm and dry. No rash HEAD: Atraumatic. Normocephalic. EYES: Pupils equal and round bilaterally reactive. No scleral icterus. No injection or drainage. ENT: No nasal bleeding or discharge. Mucous membranes pink and moist. NECK: Trachea midline. large neck circumference prevents accurate assessment of JVD. orotracheally intubated CARDIOVASCULAR: Regular rate and rhythm. on levophed at 8 mcg/min. RESPIRATORY: APRV 33/0 7:1, fio2 40%. TV 550-600s on these settings. THORAX - left breast less indurated than before. LifeVest still in place. GASTROINTESTINAL: Abdomen soft, obese, nondistended. MUSCULOSKELETAL: Extremities 2+ lower extremity edema. No obvious deformities. NEUROLOGICAL: RASS -3. does not follow commands. intubated, sedated. w/d to pain. A/P Assessment and Plan Assessment: 71yF with h/o ICM, prior EF reported at 15%, s/p placement of AICD, recovery of LVEF to 60%, AICD infection s/p lead extraction, now with breast abscess, septic shock, volume overload, acute Systolic CHF exacerbation, acute hypoxic respiratory failure. Remains in shock on vasopressors. remains off pathway with little overall improvements. I had a long conversation with the family in which we talked about her overall poor prognosis given her severe cardiomyopathy and heart failure, and that even if we had complete recovery of her acute illness, she has a overall terminal process. We talked about if we had no improvement in 7-10 days, we would need to discuss further invasive procedures such as trach/PEG and what her goals of care going forward are. In regards to her right ventricular dysfunction and severe tricuspid regurgitation , Dr. Garcia and I agree starting inhaled Flolan may be of some benefit. Certainly when she has improved hemodynamics, sildenafil may be of benefit, but currently her systemic hypotension prevents its use. Off pathway and really no meaningful improvements in end-organs despite successful diuresis yesterday. will continue forced diuresis and organ support. Remains critically ill and if we decreased even modest amounts of mechanical support, she would . Neuro/Psych: Metabolic Encephalopathy - secondary to co2 retention and sepsis. Hyperammonemia Currently on propofol/fentanyl drips for sedation/analgesia while intubated Goal of RASS -[address] brain 02/10- negative for acute disease. CV: Acute CHF exacerbation: mixed type, including systolic, diastolic, and valvulopathy from severe tricuspid regurgitation. History arrhythmia/ chronic atrial fibrillation - LifeVest since 11/2016 Hypertension Coronary disease status post stent 3 Moderate to severe TR Acute intravascular volume overload Cor Pulmonale 2-D echocardiogram revealed EF of 60%. Severe TR. PAP 33 mmHg, bedside critical care echo 02/11: moderately depressed LV function. clinically significant TR. hold metoprolol, enalapril, amlodipine for hypotension continue levophed for goal map > 65 mmHg. Previously on bumetanide 2 mg daily with KCl 10 mEq twice a day. continue bumex drip to 2mg/hr. additional dose of iv diuril 500mg x 1. continue concentrated albumin. Continue amiodarone 200 mg by mouth daily Dr. Feliciano - cardiology and Dr. Garcia, CT surgery following hold spironolactone given renal function. hold Sacibutril/Valsartan 51/49 while on vasopressors. start inhaled epoprostenol at 50 ng/kg/min. too hypotensive for sildenafil. Resp: Acute hypoxic respiratory failure Compressive atelectasis/consolidation LLL Possible LLL HCAP pneumonia Acute pulmonary edema Severe acute intravascular volume overload COPD - 3 L oxygen dependent continue APRV 7:1, 33/0. recheck abg and CXR this AM. Ventilator bundle Albuterol/ipratropium aerosols every 4 hours albuterol aerosols every 2 hours. Dyspnea Spontaneous breathing trials daily wean fio2 for goal spo2 > 90% CT chest 02/11: moderate right pleural effusion. densely consolidated LLL. severe cardiomegaly. no drainable effusion which is large enough to prevent pulmonary mechanics. GI: Hyperammonemia Acute protein calorie malnutrition - moderate Acute intravascular volume overload Obesity Constipation - improving. Abdominal Distension Patient is currently nothing by mouth NGT to LIWS Pantoprazole for GI prophylaxis Docusate sodium/senna for bowel regimen lactulose qid for elevated ammonia which is likely secondary to early congestive hepatopathy trend daily ammonias. daily BMPs diuresis as above. now that we are having daily BMs, start trickle TFs. Nepro @ 20 cc/hr. : Acute Kidney Injury- worsening. maintain ellis today. forced diuresis as above kidney injury likely multifactorial and combination of shock and venous congestion from volume overload. lungs and heart function require urgent forced diuresis given rising BNP, despite worsening renal function. Endo: Diabetes mellitus Hypoglycemia Will hold insulin detemir 27 units at night. Currently on sliding scale insulin with Novulog low regimen every 6 hours d10w @ 42cc/hr. will attempt to decrease d10w once TF started, if glycemic control improved with enteral nutrition. Renal: Acute kidney injury in the setting of chronic kidney disease stage III Followed by nephrology/by Dr. Love Avoid nephrotoxic drugs may need [employer] in the near future. Heme: Normocytic anemia Chronic warfarin use Currently holding warfarin 4 mg daily. Repeat CBC and INR daily Does not meet transfusion threshold at this time Currently on iron sulfate 325 mg by mouth twice a day ID: Escherichia coli UTI History of MSSA abscess to left breast Pertinent cultures 02/08 - urine - gram-negative bela 02/04 - blood cultures 2- no growth 02/03 - urine - Escherichia coli Followed by Dr. Tamayo/ID Currently on levofloxacin 250 mg daily and cefepime. FEN: Replace electrolytes as clinically indicated MSK: Postop day #3 I&D left breast hematoma by Dr. Joy PT evaluate and treat Access - Utilize peripheral IV. Continue to use right upper extremity single lumen PICC line. Central line if indicated Prophylaxis - GI - pantoprazole - DVT - SCD/start SQH 5000 q12h. Critical care time 39 minutes, exclusive of separately billable procedures. Sanket Rodarte MD Feb 13, 2017 08:54
[2017-02-13] MEDS: LACTULOSE SYRUP 20 GM/30 ML CUP PO SCH ×4 (09:00→21:09)
[2017-02-13] MEDS: ARTIFICIAL TEARS OPTH SOLN 15 ML BTL EACH EYE SCH ×3 (09:00→18:00)
[2017-02-13] MEDS: FERROUS SULFATE 325 MG (65 MG ELEMENTAL IRON) TAB PO SCH ×2 (09:00→21:09)
[2017-02-13] MEDS: SODIUM CHLORIDE 0.9% FLUSH 10 ML FLUSH IV FLUSH SCH ×2 (09:00→21:09)
--- NOTE | 2017-02-13 09:38 | RADRPT ---
EXAM DATE/TIME: 02/13/2017 08:46 [place] COMPARISON: CHEST SINGLE AP, February 10, 2017, 21:41. INDICATIONS : Shortness of breath. MEDICAL HISTORY : Myocardial infarction. Congestive heart failure. Hypertension. Left eye cataracts. Dentures. Anticoag ulant therapy. COPD. Asthma. Dyspnea. SURGICAL HISTORY : Coronary artery stent. Appendectomy. Hysterectomy. Cardiac stents. Cardiac catheterization. Internal defibrillator. Right lumpectomy. ENCOUNTER: Subsequent ACUITY: 3 days PAIN SCORE: Non-responsive. LOCATION: Bilateral chest FINDINGS: A single portable frontal view of the chest shows numerous electrical devices obscuring the chest. Th e heart is moderately large but unchanged. Bilateral predominantly basilar pulmonary infiltrates are shown improvement from the prior study. No discrete effusion seen. Tip of the endotracheal tube is ob scured but felt to be approximately 5 cm cephalad to the anai. Tip of the NG tube courses off the i nferior margin of the film. Right-sided PICC line. Tip is obscured but felt to be at the cavoatrial j unction. CONCLUSION: Improving bibasilar infiltrates. Quinn Talbot Jr., MD on February 13, 2017 at 9:26 Board Certified Radiologist. This report was verified electronically.
[2017-02-13 09:43] LABS: BLOOD GAS CARBOXYHEMOGLOBIN 1.9 % (0-4); BLOOD GAS HCO3 24 mmol/L (22-26); BLOOD GAS METHEMOGLOBIN 0.8 % (0-2); BLOOD GAS O2 HGB SATURATION 98 % (90-100); BLOOD GAS OXYGEN CONTENT 13.7 Vol % (12.0-20.0); BLOOD GAS PCO2 44 mmHg (38-42); BLOOD GAS PO2 191 mmHg (61-120); BLOOD GAS TOTAL HGB 9.7 G/DL (12.0-16.0); TEMP CORR TO 98.6
[2017-02-13 09:44] LABS: CRITICAL VALUE NO; DRAW SITE ART LINE; FIO2 40 %; OXYGEN DEVICE VENTILATOR
[2017-02-13 09:45] LABS: NUMBER OF ARTERIAL PUNCTURES 0; STAT YES; ULNAR PULSE PRESENT
[2017-02-13] MEDS: PANTOPRAZOLE SODIUM 40 MG VIAL IV PUSH SCH (09:48)
[2017-02-13] MEDS: AMIODARONE 200 MG TAB PO SCH (09:48)
[2017-02-13] MEDS: LEVOFLOXACIN 250 MG TAB PO SCH (09:48)
[2017-02-13] MEDS: DOCUSATE SODIUM 50 MG/SENNA 8.6 MG TAB PO SCH ×2 (09:49→21:09)
[2017-02-13] MEDS: HEPARIN SODIUM - SQ 10,000 UNITS/ML VIAL SQ SCH ×2 (09:49→21:09)
[2017-02-13] MEDS: POLYETHYLENE GLYCOL 17 GM PKG PO SCH ×2 (09:49→21:09)
[2017-02-13] MEDS: EPOPROSTENOL NEB SOLUTION 50 NG/KG/MIN 100 ML NEB SCH ×4 (10:41→18:28)
--- NOTE | 2017-02-13 10:48 | HHI.NPPN ---
Subjective History of Present Illness 71 year old female with ARF/CHF.Hematoma Left breast Additional Remarks intubated Objective Data Data Vital Signs Date Time Temp Pulse Resp B/P (MAP) Pulse Ox O2 Delivery O2 Flow Rate FiO2 02/13/17 08:58 100 40 02/13/17 06:00 92 02/13/17 06:00 88 103/49 02/13/17 04:00 89 02/13/17 04:00 40 02/13/17 04:00 98.4 81 16 119/57 (77) 100 146/64 (91) 02/13/17 03:47 100 40 02/13/17 03:13 82 126/58 02/13/17 02:00 97 02/13/17 00:37 100 40 02/13/17 00:00 40 02/13/17 00:00 79 02/13/17 00:00 97.7 79 16 143/52 (82) 100 113/50 (71) 02/12/17 22:00 88 02/12/17 22:00 88 113/52 02/12/17 20:08 100 40 02/12/17 20:00 98.9 88 10 109/59 (76) 100 02/12/17 20:00 88 02/12/17 20:00 40 02/12/17 19:00 100 Mechanical Ventilator 40 02/12/17 18:00 88 02/12/17 16:03 92 104/55 02/12/17 16:00 99.0 92 12 124/55 (78) 100 02/12/17 16:00 40 02/12/17 16:00 92 02/12/17 15:18 100 40 02/12/17 14:00 83 02/12/17 14:00 87 89/51 02/12/17 12:00 89 02/12/17 12:00 40 02/12/17 12:00 98.8 89 14 122/66 (84) 100 02/12/17 11:30 88 99/54 02/12/17 11:22 100 40 -: 02/13/17 0353 02/13/17 0353 Physical Exam General Appearance: Well Developed Neck Neck Exam: Neck Supple Pulmonary Resp Exam: Decreased Bases Cardiology CV Exam: Arrhythmia Gastrointestinal/Abdomen GI Exam: Soft, Distended Extremeties Extremities Exam: Pitting Edema Assessment/Plan Problem List: (1) HARVEY (acute kidney injury) ICD Codes: N17.9 - Acute kidney failure, unspecified Status: Acute Plan: Patient has congestive heart failure good response to diuresis 3.8 L UOP/-1.7 L on Bumex drip at 2 mg/hr follow UOP Cr slightly increased Avoid nephrotoxins follow BMP (2) Hematoma (nontraumatic) of breast ICD Codes: N64.89 - Other specified disorders of breast Plan: Surgically operated on (3) Bilateral lower extremity edema ICD Codes: R60.0 - Bilateral lower extremity edema Status: Acute Plan: Due to congestive heart failure (4) CHF (congestive heart failure) ICD Codes: I50.9 - CHF (congestive heart failure) Status: Chronic Plan: With acute decompensation Lasix ordered after surgery (5) UTI (urinary tract infection) ICD Codes: N39.0 - UTI (urinary tract infection) Status: Acute Plan: Gram-negative Enterobacter cefepime Problem Qualifiers (1) CHF (congestive heart failure): Qualified Codes: I50.33 - Acute on chronic diastolic (congestive) heart failure Laurel Love MD Feb 13, 2017 10:48
[2017-02-13] MEDS: BUMETANIDE INJ 100 ML IV SCH (11:44)
[2017-02-13] MEDS: DEXTROSE 10% INJ 1,000 ML IV SCH (15:19)
[2017-02-13] MEDS: fentaNYL DRIP 250 ML IV PRN (16:49)
[2017-02-14] VITALS (18 sets, daily range): BP systolic 94–162; BP diastolic 46–67; PULSE 81–104; RESP 10–12; TEMP 98.6–99; O2SAT 100
[2017-02-14] MEDS: RESP: ALBUTEROL 2.5 MG/IPRATROPIUM 0.5 MG NEB (SCH) INH ×6 (00:27→19:44)
[2017-02-14] MEDS: CEFEPIME INJ 2,000 MG in SODIUM CHLORIDE 0.9% INJ 100 ML IV SCH ×2 (00:27→11:54)
[2017-02-14] MEDS: BUMETANIDE INJ 100 ML IV SCH ×2 (02:09→14:11)
[2017-02-14] MEDS: CHLORHEXIDINE GLUCONATE 2 % 1 PACK (2 CLOTHS) TOP SCH (04:00)
[2017-02-14] MEDS: ALBUMIN 25% INJ 100 ML IV SCH ×3 (04:35→18:30)
[2017-02-14] MEDS: fentaNYL DRIP 250 ML IV PRN ×2 (04:36→16:39)
[2017-02-14 05:17] LABS: APTT (PATIENT) 46.2 SEC (24.3-30.1); INTERNATIONAL NORMALIZED RATIO 1.5 RATIO; PROTHROMBIN TIME - PATIENT 16.8 SEC (9.8-11.6)
[2017-02-14 05:22] LABS: HEMATOCRIT 29.3 % (35.0-46.0); MEAN CELL VOLUME 83.8 FL (80.0-100.0); MEAN CORPUSCULAR HEMOGLOBIN 27.5 PG (27.0-34.0); MEAN CORPUSCULAR HGB CONC 32.8 % (32.0-36.0); PLATELET COUNT 259 TH/MM3 (150-450); RED BLOOD COUNT 3.49 MIL/MM3 (4.00-5.30); RED CELL DISTRIBUTION WIDTH 24.2 % (11.6-17.2); REVIEW FLAG FINAL; WHITE BLOOD COUNT 10.3 TH/MM3 (4.0-11.0)
[2017-02-14 05:26] LABS: BICARBONATE 25.6 MEQ/L (21.0-32.0); POTASSIUM 3.9 MEQ/L (3.5-5.1)
[2017-02-14 05:28] LABS: TOTAL BILIRUBIN ADULT 2.2 MG/DL (0.2-1.0)
[2017-02-14] MEDS: INSULIN ASPART SUPPLEMENTAL SCALE SQ SCH ×4 (06:00→18:00)
[2017-02-14] MEDS: CHLORHEXIDINE 0.12% (ORAL KIT) 15 ML CUP MT SCH ×2 (08:00→21:30)
[2017-02-14] MEDS: AMIODARONE 200 MG TAB PO SCH (08:43)
[2017-02-14] MEDS: LACTULOSE SYRUP 20 GM/30 ML CUP PO SCH ×4 (08:43→20:38)
[2017-02-14] MEDS: PANTOPRAZOLE SODIUM 40 MG VIAL IV PUSH SCH (08:43)
[2017-02-14] MEDS: SODIUM CHLORIDE 0.9% FLUSH 10 ML FLUSH IV FLUSH SCH ×2 (08:44→21:30)
[2017-02-14] MEDS: ARTIFICIAL TEARS OPTH SOLN 15 ML BTL EACH EYE SCH ×3 (08:44→18:00)
[2017-02-14] MEDS: POLYETHYLENE GLYCOL 17 GM PKG PO SCH ×2 (08:44→20:38)
[2017-02-14] MEDS: DOCUSATE SODIUM 50 MG/SENNA 8.6 MG TAB PO SCH ×2 (08:44→20:38)
[2017-02-14] MEDS: HEPARIN SODIUM - SQ 10,000 UNITS/ML VIAL SQ SCH ×2 (08:44→20:38)
[2017-02-14] MEDS: LEVOFLOXACIN 250 MG TAB PO SCH (08:50)
[2017-02-14] MEDS: FERROUS SULFATE 325 MG (65 MG ELEMENTAL IRON) TAB PO SCH ×2 (09:00→20:30)
[2017-02-14] MEDS: EPOPROSTENOL NEB SOLUTION 50 NG/KG/MIN 100 ML NEB SCH ×6 (10:52→19:00)
--- NOTE | 2017-02-14 10:55 | HHI.CCPN ---
Subjective Remarks/Hospital Course Hospital Course: This is a 71-year-old Afro-[place] female. Date of admission 02/04/2017. Past medical history includes diastolic congestive heart failure, COPD, chronic atrial fibrillation, diabetes, hypertension and history of MSSA infection on cefazolin. Patient presents to [facility] initially on 02/04 with left breast swelling. In November/2016, patient was diagnosed with endocarditis and AICD infection. At that time, Pacemaker removed . Since that time she's had increasing swelling in her left breast and currently has an abscess of the location 11.8 cm in size. She also complained of Shortness of breath. This is associated with a self-reported 50 pound weight gain with bilateral lower extremity edema and significant stomach swelling. She also reports shortness of breath. She was treated with cefazolin at home include 01/29/2017. After cessation of treatment, she noted The patient reports a significant increase in her left breast swelling over the past 2-3 days. She states the area is tender to palpation and painful. She does not have a leukocytosis. Breast ultrasound showed a complex cystic lesion measuring up to 11.8 cm in the left breast that could represent a fluid collection or old hematoma. Today in 02/10, patient ID of her left breast by Dr. Joy. 300 crystalloid. EBL 50. Urine output 60. Patient received 40 mg torsemide IV post procedure. Her oxygenation requirements increasing currently on BiPAP. She is currently unresponsive when seen in [facility]. She'll be intubated at the present time Subjective: 02/11: intubated overnight. now on vasopressors with fever. likely mixed cardiogenic/septic shock from a combination of volume overload and breast abscess. Also has significant bilateral pleural effusion, left > right by CXR and bedside ultrasound. significantly up in weight. respiratory failure likely from volume overload, although worsening acute kidney injury and shock complicates picture. 02/12: despite aggressive diuresis increasing to bumex drip, still net + and poor diuresis. may require dialysis if no improvement. remains borderline hypoglycemic. renal function continues to worsen. no BM x 2 days. peak pressures on vent elevated. CT chest yesterday without significant effusions but completely collapsed LLL, likely a large component of atelectasis from severe cardiomegaly, but cannot rule out pna. no meaningful improvements from yesterday. 11/16: much improved diuresis yesterday and now net negative 1.7L/24h. Cr still uptrending, but only slightly. pulmonary compliance also has improved with overnight APRV. discussed care with Dr. Garcia and we both agree that inhaled epoprostenol may be of benefit in assisting with RV function to mitigate severe TR and assist with diuresis and hemodynamics. ammonia up slightly, although now having regular bowel movements. 02/14: good diuresis. Cr plateaued. LFTs and T bili slightly worse. ammonia stable without significant improvements. also had 1 episode of emesis today: tube feeds on hold and NGT to LIWS. Objective Vital Signs Date Time Temp Pulse Resp B/P (MAP) Pulse Ox O2 Delivery O2 Flow Rate FiO2 02/14/17 08:22 100 40 02/14/17 06:00 104 02/14/17 04:00 99.0 11 96/55 (69) 94/52 (66) 02/13/17 19:00 Mechanical Ventilator 02/10/17 19:15 6 Intake and Output 02/14/17 02/14/17 02/15/17 08:00 16:00 00:00 Intake Total 823 ml Output Total 2050 ml Balance -1227 ml Result Diagram: 02/14/17 0457 02/14/17 0500 Other Results Microbiology Date/Time Source Procedure Growth Status 02/12/17 00:30 Sputum Endotracheal Gram Stain - Final Complete 02/12/17 00:30 Sputum Endotracheal Sputum Culture - Final NO GROWTH IN 48 HOURS. Complete Imaging Last Impressions Head CT 02/11/17 0000 Signed Impressions: Service Date/Time: Saturday, February 11, 2017 04:32 - CONCLUSION: Normal examination. Tyrone Simmons MD Renal Ultrasound 02/10/17 0000 Signed Impressions: Service Date/Time: Friday, February 10, 2017 23:06 - CONCLUSION: Normal examination. No evidence of obstruction or hydronephrosis.. Tyrone Simmons MD Chest X-Ray 02/10/17 0000 Signed Impressions: Service Date/Time: Friday, February 10, 2017 21:41 - CONCLUSION: 1. ET tube 1 cm from the anai. This can be pulled back 2 cm to be in a better position. 2. Cardiomegaly. Multiple electronic devices are seen over the chest. 3. Diffuse pulmonary consolidations likely representing edema. There is further atelectasis or consolidation the bases and probably bilateral effusions. Gregory Perry MD Breast Ultrasound 02/03/17 0000 Signed Impressions: Service Date/Time: Friday, February 03, 2017 18:49 - CONCLUSION: Complex cystic lesion measuring up to 11.8 cm centered at the 12:00 position left breast. Given the clinical history of recent procedure in this area this could represent a noninfected or infected fluid collection. Given the complex internal architecture, percutaneous drainage will likely not be successful. Once the patient's condition permits, consider outpatient diagnostic mammogram and ultrasound followup. Gregory Bob MD ADDENDUM: Another consideration given the prior CT appearance and current imaging findings is an old hematoma. Gregory Bob MD Abdomen/Pelvis CT 02/03/17 0000 Signed Impressions: Service Date/Time: Friday, February 03, 2017 17:35 - CONCLUSION: 1. CT findings characteristic of right heart insufficiency with diffuse but stable anasarca in the visible soft tissues and leaves of the mesentery as well as a small amount of ascites. Intrahepatic IVC is markedly dilated. 2. Previously identified bilateral pleural effusions are significantly improved with only a small amount of fluid on the left. There is some persistent atelectasis in the left base. 3. Heart size remains prominent. 4. Otherwise stable. Mt Alvraez MD Objective Remarks GENERAL: 71-year-old a female, lying in bed, intubated, sedated, critically ill appearing. SKIN: Warm and dry. No rash HEAD: Atraumatic. Normocephalic. EYES: Pupils equal and round bilaterally reactive. No scleral icterus. No injection or drainage. ENT: No nasal bleeding or discharge. Mucous membranes pink and moist. NECK: Trachea midline. large neck circumference prevents accurate assessment of JVD. orotracheally intubated CARDIOVASCULAR: Regular rate and rhythm. on levophed at 2 mcg/min. RESPIRATORY: APRV 33/0 7:1, fio2 40%. TV 550-600s on these settings. THORAX - left breast less indurated than before. LifeVest still in place. GASTROINTESTINAL: Abdomen soft, obese, nondistended. MUSCULOSKELETAL: Extremities 2+ lower extremity edema. No obvious deformities. NEUROLOGICAL: RASS -3. does not follow commands. intubated, sedated. w/d to pain. A/P Assessment and Plan Assessment: 71yF with h/o ICM, prior EF reported at 15%, s/p placement of AICD, recovery of LVEF to 60%, AICD infection s/p lead extraction, now with breast abscess, septic shock, volume overload, acute Systolic CHF exacerbation, acute hypoxic respiratory failure. Remains in shock on vasopressors. remains off pathway with little overall improvements. I had a long conversation with the family on 02/12 in which we talked about her overall poor prognosis given her severe cardiomyopathy and heart failure, and that even if we had complete recovery of her acute illness, she has a overall terminal process. We talked about if we had no improvement in 7-10 days, we would need to discuss further invasive procedures such as trach/PEG and what her goals of care going forward are. Daily plan includes continuing Flolan inhaled, continue forced diuresis. continue lactulose with high bowel regimen to promote motility. will start low [id number] weaning on APRV to 26/0 and 9:1 I:E. Still very much off pathway with little improvements. Neuro/Psych: Metabolic Encephalopathy - secondary to co2 retention and sepsis. Hyperammonemia Currently on propofol/fentanyl drips for sedation/analgesia while intubated Goal of RASS -[address] brain 02/10- negative for acute disease. CV: Acute CHF exacerbation: mixed type, including systolic, diastolic, and valvulopathy from severe tricuspid regurgitation. History arrhythmia/ chronic atrial fibrillation - LifeVest since 11/2016 Hypertension Coronary disease status post stent 3 Moderate to severe TR Acute intravascular volume overload Cor Pulmonale 2-D echocardiogram revealed EF of 60%. Severe TR. PAP 33 mmHg, bedside critical care echo 02/11: moderately depressed LV function. clinically significant TR. hold metoprolol, enalapril, amlodipine for hypotension continue levophed for goal map > 65 mmHg. Previously on bumetanide 2 mg daily with KCl 10 mEq twice a day. continue bumex drip to 2mg/hr. diamox 500mg iv q8h x 3 doses. continue concentrated albumin. Continue amiodarone 200 mg by mouth daily Dr. Feliciano - cardiology and Dr. Garcia, CT surgery following hold spironolactone given renal function. hold Sacibutril/Valsartan 51/49 while on vasopressors. continue inhaled epoprostenol at 50 ng/kg/min for RV support. too hypotensive for sildenafil. Resp: Acute hypoxic respiratory failure Compressive atelectasis/consolidation LLL Possible LLL HCAP pneumonia Acute pulmonary edema Severe acute intravascular volume overload COPD - 3 L oxygen dependent drop and stretch: APRV 9:1, 26/0. recheck abg. Ventilator bundle Albuterol/ipratropium aerosols every 4 hours albuterol aerosols every 2 hours. Dyspnea Spontaneous breathing trials daily wean fio2 for goal spo2 > 90% CT chest 02/11: moderate right pleural effusion. densely consolidated LLL. severe cardiomegaly. no drainable effusion which is large enough to prevent pulmonary mechanics. GI: Hyperammonemia Acute protein calorie malnutrition - moderate Acute intravascular volume overload Obesity Constipation - improving. Abdominal Distension placed back on NPO. NGT to LIWS Pantoprazole for GI prophylaxis Docusate sodium/senna for bowel regimen lactulose qid for elevated ammonia which is likely secondary to early congestive hepatopathy trend daily ammonias. daily BMPs diuresis as above. continue aggressive bowel regimen. : Acute Kidney Injury- plateaued, but persistent. maintain ellis today. forced diuresis as above kidney injury likely multifactorial and combination of shock and venous congestion from volume overload. lungs and heart function require urgent forced diuresis, despite kidney injury. Endo: Diabetes mellitus Hypoglycemia Will hold insulin detemir 27 units at night. Currently on sliding scale insulin with Novulog low regimen every 6 hours d10w @ 42cc/hr. maintain dextrose source while npo. Renal: Acute kidney injury in the setting of chronic kidney disease stage III Followed by nephrology/by Dr. Love Avoid nephrotoxic drugs may need ROUTE RIDER in the near future. Heme: Normocytic anemia Chronic warfarin use Currently holding warfarin 4 mg daily. Repeat CBC and INR daily Does not meet transfusion threshold at this time Currently on iron sulfate 325 mg by mouth twice a day ID: Escherichia coli UTI History of MSSA abscess to left breast Pertinent cultures 02/08 - urine - gram-negative bela 02/04 - blood cultures 2- no growth 02/03 - urine - Escherichia coli Followed by Dr. Tamayo/ID Currently on levofloxacin 250 mg daily and cefepime. FEN: Replace electrolytes as clinically indicated MSK: Postop day #4 I&D left breast hematoma by Dr. Garcia PT evaluate and treat Access - Utilize peripheral IV. Continue to use right upper extremity single lumen PICC line. Central line if indicated Prophylaxis - GI - pantoprazole - DVT - SCD/SQH 5000 q12h. Sanket Rodarte MD Feb 14, 2017 10:55
[2017-02-14 12:01] LABS: BLOOD GAS BASE EXCESS 0.5 mmol/L (-2-2); BLOOD GAS CARBOXYHEMOGLOBIN 1.8 % (0-4); BLOOD GAS HCO3 25 mmol/L (22-26); BLOOD GAS METHEMOGLOBIN 0.8 % (0-2); BLOOD GAS O2 HGB SATURATION 98 % (90-100); BLOOD GAS OXYGEN CONTENT 12.6 Vol % (12.0-20.0); BLOOD GAS PCO2 46 mmHg (38-42); BLOOD GAS PO2 224 mmHg (61-120); BLOOD GAS TOTAL HGB 8.8 G/DL (12.0-16.0); CRITICAL VALUE NO; OXYGEN DEVICE VENTILATOR; TEMP CORR TO 98.6
[2017-02-14 12:03] LABS: DRAW SITE ART LINE; FIO2 40 %; STAT NO; VENT SETTINGS BILEVEL/APRV
--- NOTE | 2017-02-14 12:25 | HHI.NPPN ---
Subjective History of Present Illness 71 year old female with ARF/CHF.Hematoma Left breast Additional Remarks intubated Objective Data Data Vital Signs Date Time Temp Pulse Resp B/P (MAP) Pulse Ox O2 Delivery O2 Flow Rate FiO2 02/14/17 08:22 100 40 02/14/17 06:00 104 02/14/17 06:00 40 02/14/17 04:00 99.0 103 11 96/55 (69) 100 94/52 (66) 02/14/17 04:00 103 02/14/17 04:00 40 02/14/17 03:55 100 40 02/14/17 02:00 99 02/14/17 00:27 100 40 02/14/17 00:00 99.0 96 11 143/67 (92) 100 96/46 (63) 02/14/17 00:00 96 02/14/17 00:00 96 143/76 02/14/17 00:00 40 02/13/17 22:00 99 02/13/17 20:08 100 40 02/13/17 20:00 40 02/13/17 20:00 96 02/13/17 20:00 99.2 96 11 148/89 (108) 100 127/56 (79) 02/13/17 19:00 100 Mechanical Ventilator 40 02/13/17 18:00 93 02/13/17 16:49 96 134/59 02/13/17 16:00 99.0 96 11 100 134/59 (84) 02/13/17 16:00 40 02/13/17 16:00 96 02/13/17 15:49 100 40 02/13/17 15:18 90 129/62 02/13/17 14:00 90 -: 02/14/17 0457 02/14/17 0500 Physical Exam General Appearance: Well Developed Neck Neck Exam: Neck Supple Pulmonary Resp Exam: Decreased Bases Cardiology CV Exam: Arrhythmia Gastrointestinal/Abdomen GI Exam: Soft, Distended Extremeties Extremities Exam: Pitting Edema Assessment/Plan Problem List: (1) HARVEY (acute kidney injury) ICD Codes: N17.9 - Acute kidney failure, unspecified Status: Acute Plan: Patient has congestive heart failure good response to diuresis 7.4 L UOP/ on Bumex drip at 2 mg/hr follow UOP Cr slightly declined monitor BMP consider decrease in Bumex dose Avoid nephrotoxins follow BMP (2) Hematoma (nontraumatic) of breast ICD Codes: N64.89 - Other specified disorders of breast Plan: Surgically operated on (3) Bilateral lower extremity edema ICD Codes: R60.0 - Bilateral lower extremity edema Status: Acute Plan: Due to congestive heart failure (4) CHF (congestive heart failure) ICD Codes: I50.9 - CHF (congestive heart failure) Status: Chronic Plan: With acute decompensation Lasix ordered after surgery (5) UTI (urinary tract infection) ICD Codes: N39.0 - UTI (urinary tract infection) Status: Acute Plan: Gram-negative Enterobacter cefepime Problem Qualifiers (1) CHF (congestive heart failure): Qualified Codes: I50.33 - Acute on chronic diastolic (congestive) heart failure Laurel Love MD Feb 14, 2017 12:25
[2017-02-14] MEDS: SENNOSIDES 8.6 MG TAB PO SCH ×2 (13:10→20:38)
[2017-02-14] MEDS: BISACODYL 10 MG SUPP RECTAL SCH (13:11)
[2017-02-14] MEDS: MAGNESIUM HYDROXIDE SUSP 30 ML CUP PO SCH ×2 (13:11→20:38)
[2017-02-14] MEDS: DEXTROSE 10% INJ 1,000 ML IV SCH (16:27)
[2017-02-14] MEDS: NOREPINEPHRINE INJ 16 MG in SODIUM CHLOR 0.9% 250 ML INJ 234 ML IV PRN (20:30)
--- NOTE | 2017-02-14 21:23 | HHI.IDPN ---
Subjective Subjective Remarks delayed entry - pt was seen around 2 pm remains afebrile wound clx negative Antibiotics levaquine Allergies: Coded Allergies: penicillin G (Unverified Allergy, Severe, rash, 12/31/16) benazepril (Unverified Allergy, Mild, 12/31/16) HUMBLE inhibitor angioedema, swelling of the face lips and anterior tongue captopril (Unverified Allergy, Mild, 12/31/16) HUMBLE inhibitor angioedema, swelling of the face lips and anterior tongue enalaprilat (Unverified Allergy, Mild, 12/31/16) HUMBLE inhibitor angioedema, swelling of the face lips and anterior tongue fosinopril (Unverified Allergy, Mild, 12/31/16) HUMBLE inhibitor angioedema, swelling of the face lips and anterior tongue lisinopril (Unverified Allergy, Mild, 12/31/16) HUMBLE inhibitor angioedema, swelling of the face lips and anterior tongue quinapril (Unverified Allergy, Mild, 12/31/16) HUMBLE inhibitor angioedema, swelling of the face lips and anterior tongue Uncoded Allergies: NON COMPATIBLE PACEMAKER (Adverse Reaction, Severe, MRI PRECAUTION / PACEMAKER, 11/03/14) MRI PRECAUTION. PACEMAKER Objective . Vital Signs Date Time Temp Pulse Resp B/P (MAP) Pulse Ox O2 Delivery O2 Flow Rate FiO2 02/14/17 20:09 100 40 02/14/17 19:00 100 Mechanical Ventilator 40 02/14/17 18:00 83 02/14/17 16:27 100 40 02/14/17 16:00 81 02/14/17 16:00 40 02/14/17 16:00 98.7 84 10 140/63 (88) 100 120/48 (72) 02/14/17 14:00 97 02/14/17 12:19 100 40 02/14/17 12:00 99.0 81 10 113/55 (74) 100 162/66 (98) 02/14/17 12:00 40 02/14/17 12:00 86 02/14/17 10:00 91 02/14/17 08:22 100 40 02/14/17 08:00 40 02/14/17 08:00 89 02/14/17 08:00 98.6 91 12 105/58 (74) 100 99/55 (70) 02/14/17 07:00 100 Mechanical Ventilator 40 02/14/17 06:00 104 02/14/17 06:00 40 02/14/17 04:00 99.0 103 11 96/55 (69) 100 94/52 (66) 02/14/17 04:00 103 02/14/17 04:00 40 02/14/17 03:55 100 40 02/14/17 02:00 99 02/14/17 00:27 100 40 02/14/17 00:00 99.0 96 11 143/67 (92) 100 96/46 (63) 02/14/17 00:00 96 02/14/17 00:00 96 143/76 02/14/17 00:00 40 02/13/17 22:00 99 02/14/17 02/14/17 02/15/17 15:00 23:00 07:00 Intake Total 190 ml 1092 ml Output Total 500.0 ml 3920 ml Balance -310.0 ml -2828 ml IV Total 190 ml 845 ml Tube Feeding 97 ml Tube Irrigant 150 ml Output Urine Total 2300 ml Gastric Drainage Total 1500 ml Emesis 120 ml Tube Feeding Residual Discard 500.0 ml # Bowel Movements 0 . Laboratory Tests Test 02/13/17 03:53 02/14/17 04:57 White Blood Count 11.1 TH/MM3 10.3 TH/MM3 Red Blood Count 3.39 MIL/MM3 3.49 MIL/MM3 Hemoglobin 9.5 GM/DL 9.6 GM/DL Hematocrit 29.2 % 29.3 % Mean Corpuscular Volume 86.2 FL 83.8 FL Mean Corpuscular Hemoglobin 28.0 PG 27.5 PG Mean Corpuscular Hemoglobin Concent 32.5 % 32.8 % Red Cell Distribution Width 24.7 % 24.2 % Platelet Count 276 TH/MM3 259 TH/MM3 Mean Platelet Volume 6.5 FL 6.5 FL Laboratory Tests Test 02/13/17 03:53 02/14/17 04:57 02/14/17 05:00 Blood Urea Nitrogen 31 MG/DL 32 MG/DL Creatinine 2.19 MG/DL 2.02 MG/DL Random Glucose 89 MG/DL 120 MG/DL Total Protein 7.4 GM/DL 7.0 GM/DL Albumin 3.5 GM/DL 3.4 GM/DL Calcium Level 8.0 MG/DL 8.1 MG/DL Alkaline Phosphatase 87 U/L 75 U/L Aspartate Amino Transf (AST/SGOT) 33 U/L 28 U/L Alanine Aminotransferase (ALT/SGPT) 8 U/L 7 U/L Total Bilirubin 1.5 MG/DL 2.2 MG/DL Direct Bilirubin 1.0 MG/DL 1.2 MG/DL Sodium Level 139 MEQ/L 139 MEQ/L Potassium Level 4.1 MEQ/L 3.9 MEQ/L Chloride Level 105 MEQ/L 103 MEQ/L Carbon Dioxide Level 21.9 MEQ/L 25.6 MEQ/L Anion Gap 12 MEQ/L 10 MEQ/L Estimat Glomerular Filtration Rate 27 ML/MIN 29 ML/MIN Indirect Bilirubin 0.5 MG/DL 1.0 MG/DL Ammonia 42 MCMOL/L 44 MCMOL/L B-Type Natriuretic Peptide 2772 PG/ML 2160 PG/ML Microbiology Date/Time Source Procedure Growth Status 02/12/17 00:30 Sputum Endotracheal Gram Stain - Final Complete 02/12/17 00:30 Sputum Endotracheal Sputum Culture - Final NO GROWTH IN 48 HOURS. Complete Imaging Last Impressions Chest X-Ray 02/13/17 0000 Signed Impressions: Service Date/Time: January 08:46 - CONCLUSION: Improving bibasilar infiltrates. Quinn Talbot Jr., MD Head CT 02/11/17 0000 Signed Impressions: Service Date/Time: Saturday, February 11, 2017 04:32 - CONCLUSION: Normal examination. Tyrone Simmons MD Chest CT 02/11/17 0000 Signed Impressions: Service Date/Time: Saturday, February 11, 2017 22:16 - CONCLUSION: Heart is quite enlarged. ET tube is in good position. There is a dense consolidation involving almost the entire left lower lobe with small left pleural effusion. There is a moderate size right pleural effusion measuring 3.2 x 6.0 cm across. Tyrone Simmons MD Renal Ultrasound 02/10/17 0000 Signed Impressions: Service Date/Time: Friday, February 10, 2017 23:06 - CONCLUSION: Normal examination. No evidence of obstruction or hydronephrosis.. Tyrone Simmons MD Breast Ultrasound 02/03/17 0000 Signed Impressions: Service Date/Time: Friday, February 03, 2017 18:49 - CONCLUSION: Complex cystic lesion measuring up to 11.8 cm centered at the 12:00 position left breast. Given the clinical history of recent procedure in this area this could represent a noninfected or infected fluid collection. Given the complex internal architecture, percutaneous drainage will likely not be successful. Once the patient's condition permits, consider outpatient diagnostic mammogram and ultrasound followup. Gregory Bob MD ADDENDUM: Another consideration given the prior CT appearance and current imaging findings is an old hematoma. Gregory Bob MD Abdomen/Pelvis CT 02/03/17 0000 Signed Impressions: Service Date/Time: Friday, February 03, 2017 17:35 - CONCLUSION: 1. CT findings characteristic of right heart insufficiency with diffuse but stable anasarca in the visible soft tissues and leaves of the mesentery as well as a small amount of ascites. Intrahepatic IVC is markedly dilated. 2. Previously identified bilateral pleural effusions are significantly improved with only a small amount of fluid on the left. There is some persistent atelectasis in the left base. 3. Heart size remains prominent. 4. Otherwise stable. Mt Alvarez MD Physical Exam CONSTITUTIONAL/GENERAL: This is an adequately nourished patient, in no apparent distress. TUBES/LINES/DRAINS: SKIN: No jaundice, rashes, or lesions. Skin temperature appropriate. Not diaphoretic. L breast dressing in place HEENT: orally intubated CARDIOVASCULAR: Regular rate and rhythm without murmurs, gallops, or rubs. No JVD. Peripheral pulses symmetric. RESPIRATORY/CHEST: Symmetric, unlabored respirations. Clear to auscultation. Breath sounds equal bilaterally. No wheezes, rales, or rhonchi. GASTROINTESTINAL: Abdomen soft, non-tender, distended with prominent edema. No hepato-splenomegaly, or palpable masses. No guarding. Bowel sounds present. GENITOURINARY: Without palpable bladder distension. Wolff catheter in place with clear light yellow urine MUSCULOSKELETAL: Extremities without clubbing, cyanosis, Markedly improved edema , anasarca LUE with less non pitting edema LYMPHATICS: No palpable cervical or supraclavicular adenopathy. 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 LLL PNA vs atelectatic changes CHF with fluid oveload Probably asymptomati asymptomatic bacteriuria Acute VDRF ? PNA CT from 02/11/17 showed a dense consolidation involving almost the entire left lower lobe with small left pleural effusion. ARF on CKD, worsening creatinine Critically ill and unstable fu sputum clx follow wound clx cont cefepime, x 7 days total dc levaquine Darleen Tamayo MD Feb 14, 2017 21:23
[2017-02-15] VITALS (17 sets, daily range): BP systolic 101–141; BP diastolic 54–66; PULSE 94–112; RESP 10–13; TEMP 98.2–99.8; O2SAT 100
[2017-02-15] MEDS: CEFEPIME INJ 2,000 MG in SODIUM CHLORIDE 0.9% INJ 100 ML IV SCH ×3 (00:03→23:45)
[2017-02-15] MEDS: RESP: ALBUTEROL 2.5 MG/IPRATROPIUM 0.5 MG NEB (SCH) INH ×7 (00:33→22:53)
[2017-02-15] MEDS: BUMETANIDE INJ 100 ML IV SCH ×3 (01:01→20:03)
[2017-02-15] MEDS: ALBUMIN 25% INJ 100 ML IV SCH ×3 (03:40→18:04)
[2017-02-15] MEDS: CHLORHEXIDINE GLUCONATE 2 % 1 PACK (2 CLOTHS) TOP SCH (04:00)
[2017-02-15 04:04] LABS: HEMATOCRIT 30.5 % (35.0-46.0); MEAN CELL VOLUME 86.4 FL (80.0-100.0); MEAN CORPUSCULAR HEMOGLOBIN 28.1 PG (27.0-34.0); MEAN CORPUSCULAR HGB CONC 32.5 % (32.0-36.0); PLATELET COUNT 265 TH/MM3 (150-450); RED BLOOD COUNT 3.53 MIL/MM3 (4.00-5.30); RED CELL DISTRIBUTION WIDTH 23.4 % (11.6-17.2); REVIEW FLAG FINAL; WHITE BLOOD COUNT 12.2 TH/MM3 (4.0-11.0)
[2017-02-15 04:16] LABS: APTT (PATIENT) 50.5 SEC (24.3-30.1); INTERNATIONAL NORMALIZED RATIO 1.5 RATIO; PROTHROMBIN TIME - PATIENT 17.3 SEC (9.8-11.6)
[2017-02-15 04:24] LABS: ANION GAP 9 MEQ/L (5-15); AST (GOT) 15 U/L (15-37); BLOOD UREA NITROGEN 32 MG/DL (7-18); CHLORIDE 101 MEQ/L (98-107); GLOMERULAR FILTRATION RATE 29 ML/MIN (>89); POTASSIUM 3.5 MEQ/L (3.5-5.1); SODIUM (NA) 138 MEQ/L (136-145)
[2017-02-15 04:27] LABS: ALKALINE PHOSPHATASE 64 U/L (45-117); ALT (GPT) LESS THAN 6 U/L (10-53); INDIRECT BILIRUBIN 0.7 MG/DL (0.0-0.8)
[2017-02-15] MEDS: EPOPROSTENOL NEB SOLUTION 50 NG/KG/MIN 100 ML NEB SCH ×6 (05:14→18:07)
[2017-02-15] MEDS: INSULIN ASPART SUPPLEMENTAL SCALE SQ SCH ×4 (06:00→18:00)
[2017-02-15] MEDS: fentaNYL DRIP 250 ML IV PRN (07:04)
[2017-02-15] MEDS: CHLORHEXIDINE 0.12% (ORAL KIT) 15 ML CUP MT SCH ×2 (08:00→21:06)
[2017-02-15] MEDS: FERROUS SULFATE 325 MG (65 MG ELEMENTAL IRON) TAB PO SCH ×2 (08:11→21:00)
[2017-02-15] MEDS: ARTIFICIAL TEARS OPTH SOLN 15 ML BTL EACH EYE SCH ×3 (08:11→17:40)
[2017-02-15] MEDS: HEPARIN SODIUM - SQ 10,000 UNITS/ML VIAL SQ SCH ×2 (08:11→21:06)
[2017-02-15] MEDS: PANTOPRAZOLE SODIUM 40 MG VIAL IV PUSH SCH (08:11)
[2017-02-15] MEDS: AMIODARONE 200 MG TAB PO SCH (08:11)
[2017-02-15] MEDS: SODIUM CHLORIDE 0.9% FLUSH 10 ML FLUSH IV FLUSH SCH ×2 (08:12→21:00)
[2017-02-15] MEDS: MAGNESIUM HYDROXIDE SUSP 30 ML CUP PO SCH ×2 (08:12→21:00)
[2017-02-15] MEDS: BISACODYL 10 MG SUPP RECTAL SCH (08:12)
[2017-02-15] MEDS: DOCUSATE SODIUM 50 MG/SENNA 8.6 MG TAB PO SCH ×2 (08:12→21:00)
[2017-02-15] MEDS: SENNOSIDES 8.6 MG TAB PO SCH ×2 (08:12→21:00)
[2017-02-15] MEDS: POLYETHYLENE GLYCOL 17 GM PKG PO SCH ×2 (08:12→21:00)
[2017-02-15] MEDS: LACTULOSE SYRUP 20 GM/30 ML CUP PO SCH ×4 (08:12→21:05)
--- NOTE | 2017-02-15 11:53 | HHI.CCPN ---
Subjective Remarks/Hospital Course Hospital Course: This is a 71-year-old Afro-[place] female. Date of admission 02/04/2017. Past medical history includes diastolic congestive heart failure, COPD, chronic atrial fibrillation, diabetes, hypertension and history of MSSA infection on cefazolin. Patient presents to [facility] initially on 02/04 with left breast swelling. In November/2016, patient was diagnosed with endocarditis and AICD infection. At that time, Pacemaker removed . Since that time she's had increasing swelling in her left breast and currently has an abscess of the location 11.8 cm in size. She also complained of Shortness of breath. This is associated with a self-reported 50 pound weight gain with bilateral lower extremity edema and significant stomach swelling. She also reports shortness of breath. She was treated with cefazolin at home include 01/29/2017. After cessation of treatment, she noted The patient reports a significant increase in her left breast swelling over the past 2-3 days. She states the area is tender to palpation and painful. She does not have a leukocytosis. Breast ultrasound showed a complex cystic lesion measuring up to 11.8 cm in the left breast that could represent a fluid collection or old hematoma. Today in 02/10, patient ID of her left breast by Dr. Joy. 300 crystalloid. EBL 50. Urine output 60. Patient received 40 mg torsemide IV post procedure. Her oxygenation requirements increasing currently on BiPAP. She is currently unresponsive when seen in [facility]. She'll be intubated at the present time Subjective: 02/11: intubated overnight. now on vasopressors with fever. likely mixed cardiogenic/septic shock from a combination of volume overload and breast abscess. Also has significant bilateral pleural effusion, left > right by CXR and bedside ultrasound. significantly up in weight. respiratory failure likely from volume overload, although worsening acute kidney injury and shock complicates picture. 02/12: despite aggressive diuresis increasing to bumex drip, still net + and poor diuresis. may require dialysis if no improvement. remains borderline hypoglycemic. renal function continues to worsen. no BM x 2 days. peak pressures on vent elevated. CT chest yesterday without significant effusions but completely collapsed LLL, likely a large component of atelectasis from severe cardiomegaly, but cannot rule out pna. no meaningful improvements from yesterday. 11/16: much improved diuresis yesterday and now net negative 1.7L/24h. Cr still uptrending, but only slightly. pulmonary compliance also has improved with overnight APRV. discussed care with Dr. Garcia and we both agree that inhaled epoprostenol may be of benefit in assisting with RV function to mitigate severe TR and assist with diuresis and hemodynamics. ammonia up slightly, although now having regular bowel movements. 02/14: good diuresis. Cr plateaued. LFTs and T bili slightly worse. ammonia stable without significant improvements. also had 1 episode of emesis today: tube feeds on hold and NGT to LIWS. 02/15: Heart is shaped like a bowling ball. Gas exchange much improved, continued diuresis. Residual NG aspirate > 500 - will reconnect to LIS, start reglan. Decrease T-high to 4.5, add pressure support 5. Lighten fentanyl. Diarrhea remains problematic. Objective Vital Signs Date Time Temp Pulse Resp B/P (MAP) Pulse Ox O2 Delivery O2 Flow Rate FiO2 02/15/17 10:00 96 02/15/17 10:00 35 02/15/17 08:00 98.7 13 100 127/61 (83) 02/15/17 07:00 Mechanical Ventilator Intake and Output 02/15/17 02/15/17 02/16/17 08:00 16:00 00:00 Intake Total 1291 ml Output Total 1050.0 ml Balance 241.0 ml Result Diagram: 02/15/17 0350 02/15/17 0350 Other Results Laboratory Tests Test 02/14/17 11:46 Blood Gas Puncture Site ART LINE Blood Gas Patient Temperature 98.6 Blood Gas HCO3 25 mmol/L (22-26) Blood Gas Base Excess 0.5 mmol/L (-2-2) Blood Gas Oxygen Saturation 98 % (90-100) Arterial Blood pH 7.36 (7.380-7.420) Arterial Blood Partial Pressure CO2 46 mmHg (38-42) Arterial Blood Partial Pressure O2 224 mmHg (61-120) Arterial Blood Oxygen Content 12.6 Vol % (12.0-20.0) Arterial Blood Carboxyhemoglobin 1.8 % (0-4) Arterial Blood Methemoglobin 0.8 % (0-2) Blood Gas Hemoglobin 8.8 G/DL (12.0-16.0) Oxygen Delivery Device VENTILATOR Blood Gas Ventilator Setting BILEVEL/APRV Blood Gas Inspired Oxygen 40 % Imaging Last Impressions Head CT 02/11/17 0000 Signed Impressions: Service Date/Time: Saturday, February 11, 2017 04:32 - CONCLUSION: Normal examination. Tyrone Simmons MD Renal Ultrasound 02/10/17 0000 Signed Impressions: Service Date/Time: Friday, February 10, 2017 23:06 - CONCLUSION: Normal examination. No evidence of obstruction or hydronephrosis.. Tyrone Simmons MD Chest X-Ray 02/10/17 0000 Signed Impressions: Service Date/Time: Friday, February 10, 2017 21:41 - CONCLUSION: 1. ET tube 1 cm from the anai. This can be pulled back 2 cm to be in a better position. 2. Cardiomegaly. Multiple electronic devices are seen over the chest. 3. Diffuse pulmonary consolidations likely representing edema. There is further atelectasis or consolidation the bases and probably bilateral effusions. Gregory Perry MD Breast Ultrasound 02/03/17 Signed Impressions: Service Date/Time: Friday, February 03, 2017 18:49 - CONCLUSION: Complex cystic lesion measuring up to 11.8 cm centered at the 12:00 position left breast. Given the clinical history of recent procedure in this area this could represent a noninfected or infected fluid collection. Given the complex internal architecture, percutaneous drainage will likely not be successful. Once the patient's condition permits, consider outpatient diagnostic mammogram and ultrasound followup. Gregory Bob MD ADDENDUM: Another consideration given the prior CT appearance and current imaging findings is an old hematoma. Gregory Bob MD Abdomen/Pelvis CT 02/03/17 0000 Signed Impressions: Service Date/Time: Friday, February 03, 2017 17:35 - CONCLUSION: 1. CT findings characteristic of right heart insufficiency with diffuse but stable anasarca in the visible soft tissues and leaves of the mesentery as well as a small amount of ascites. Intrahepatic IVC is markedly dilated. 2. Previously identified bilateral pleural effusions are significantly improved with only a small amount of fluid on the left. There is some persistent atelectasis in the left base. 3. Heart size remains prominent. 4. Otherwise stable. Mt Alvarez MD Objective Remarks GENERAL: 71-year-old a female, lying in bed, intubated, sedated, critically ill appearing. SKIN: Warm and dry. No rash HEAD: Atraumatic. Normocephalic. EYES: Pupils equal and round bilaterally reactive. No conjunctival icterus. No injection or drainage. ENT: No nasal bleeding or discharge. Mucous membranes pink and moist. NECK: Trachea midline. large neck circumference prevents accurate assessment of JVD. orotracheally intubated CARDIOVASCULAR: Regular rate and rhythm, on levophed. RESPIRATORY: APRV 26/0, fio2 35%. TV 500s on these settings. THORAX - left breast less indurated than before. LifeVest still in place. GASTROINTESTINAL: Abdomen soft, obese, nondistended. BS hyperactive MUSCULOSKELETAL: Extremities 2+ lower extremity edema. No obvious deformities. NEUROLOGICAL: RASS -3. does not follow commands. intubated, sedated. w/d to pain. A/P Assessment and Plan Assessment: 71yF with h/o ICM, prior EF reported at 15%, s/p placement of AICD, recovery of LVEF to 60%, AICD infection s/p lead extraction, now with breast abscess, septic shock, volume overload, acute Systolic CHF exacerbation, acute hypoxic respiratory failure. Remains in shock on vasopressors. remains off pathway with little overall improvements. I had a long conversation with the family on 02/12 in which we talked about her overall poor prognosis given her severe cardiomyopathy and heart failure, and that even if we had complete recovery of her acute illness, she has a overall terminal process. We talked about if we had no improvement in 7-10 days, we would need to discuss further invasive procedures such as trach/PEG and what her goals of care going forward are. Daily plan includes continuing Flolan inhaled, continue forced diuresis. continue lactulose with high bowel regimen to promote motility. will start low [id number] weaning on APRV to 26/0 and 9:1 I:E. Still very much off pathway with little improvements. Neuro/Psych: Metabolic Encephalopathy - secondary to co2 retention and sepsis. Hyperammonemia Currently on propofol/fentanyl drips for sedation/analgesia while intubated Goal of RASS -[address] brain 02/10- negative for acute disease. CV: Acute CHF exacerbation: mixed type, including systolic, diastolic, and valvulopathy from severe tricuspid regurgitation. History arrhythmia/ chronic atrial fibrillation - LifeVest since 11/2016 Hypertension Coronary disease status post stent 3 Moderate to severe TR Acute intravascular volume overload Cor Pulmonale 2-D echocardiogram revealed EF of 60%. Severe TR. PAP 33 mmHg, bedside critical care echo 02/11: moderately depressed LV function. clinically significant TR. hold metoprolol, enalapril, amlodipine for hypotension continue levophed for goal map > 65 mmHg. Previously on bumetanide 2 mg daily with KCl 10 mEq twice a day. continue bumex drip to 2mg/hr. diamox 500mg iv q8h x 3 doses. continue concentrated albumin. Continue amiodarone 200 mg by mouth daily Dr. Feliciano - cardiology and Dr. Garcia, CT surgery following hold spironolactone given renal function. hold Sacibutril/Valsartan / while on vasopressors. continue inhaled epoprostenol at 50 ng/kg/min for RV support. too hypotensive for sildenafil. Resp: Acute hypoxic respiratory failure Compressive atelectasis/consolidation LLL Possible LLL HCAP pneumonia Acute pulmonary edema Severe acute intravascular volume overload COPD - 3 L oxygen dependent drop and stretch: APRV 9:1, 26/0. recheck abg. Ventilator bundle Albuterol/ipratropium aerosols every 4 hours albuterol aerosols every 2 hours. Dyspnea Spontaneous breathing trials daily wean fio2 for goal spo2 > 90% CT chest 02/11: moderate right pleural effusion. densely consolidated LLL. severe cardiomegaly. no drainable effusion which is large enough to prevent pulmonary mechanics. GI: Hyperammonemia Acute protein calorie malnutrition - moderate Acute intravascular volume overload Obesity Constipation - improving. Abdominal Distension placed back on NPO. NGT to LIWS Pantoprazole for GI prophylaxis Docusate sodium/senna for bowel regimen lactulose qid for elevated ammonia which is likely secondary to early congestive hepatopathy trend daily ammonias. daily BMPs diuresis as above. continue aggressive bowel regimen. : Acute Kidney Injury- plateaued, but persistent. maintain ellis today. forced diuresis as above kidney injury likely multifactorial and combination of shock and venous congestion from volume overload. lungs and heart function require urgent forced diuresis, despite kidney injury. Endo: Diabetes mellitus Hypoglycemia Will hold insulin detemir 27 units at night. Currently on sliding scale insulin with Novulog low regimen every 6 hours d10w @ 42cc/hr. maintain dextrose source while npo. Renal: Acute kidney injury in the setting of chronic kidney disease stage III Followed by nephrology/by Dr. Love Avoid nephrotoxic drugs may need COVER MAKER in the near future. Heme: Normocytic anemia Chronic warfarin use Currently holding warfarin 4 mg daily. Repeat CBC and INR daily Does not meet transfusion threshold at this time Currently on iron sulfate 325 mg by mouth twice a day ID: Escherichia coli UTI History of MSSA abscess to left breast Pertinent cultures 02/08 - urine - gram-negative bela 02/04 - blood cultures 2- no growth 02/03 - urine - Escherichia coli Followed by Dr. Tamayo/ID Currently on levofloxacin 250 mg daily and cefepime. FEN: Replace electrolytes as clinically indicated MSK: Postop day #5 I&D left breast hematoma by Dr. Garcia PT evaluate and treat Access - Utilize peripheral IV. Continue to use right upper extremity single lumen PICC line. Central line if indicated Prophylaxis - GI - pantoprazole - DVT - SCD/SQH 5000 q12h. Overall impression: Good progress getting fluid off; consistently negative balance. TR may be the limiting factor in our ability to improve her hemodynamic status. Virgilio Banerjee MD Feb 15, 2017 11:53
[2017-02-15] MEDS: DEXTROSE 10% INJ 1,000 ML IV SCH (12:37)
--- NOTE | 2017-02-15 12:52 | HHI.NPPN ---
Subjective History of Present Illness 71 year old female with ARF/CHF.Hematoma Left breast Additional Remarks intubated Objective Data Data 02/15/17 02/16/17 19:00 07:00 Intake Total 543 ml Balance 543 ml IV Total 543 ml Vital Signs Date Time Temp Pulse Resp B/P (MAP) Pulse Ox O2 Delivery O2 Flow Rate FiO2 02/15/17 12:04 100 40 02/15/17 12:00 98.2 97 12 100 141/62 (88) 02/15/17 12:00 97 02/15/17 12:00 35 02/15/17 10:00 96 02/15/17 10:00 35 02/15/17 08:00 40 02/15/17 08:00 98.7 99 13 100 127/61 (83) 02/15/17 08:00 99 02/15/17 07:55 100 40 02/15/17 07:00 100 Mechanical Ventilator 40 02/15/17 06:00 99 02/15/17 06:00 40 02/15/17 04:00 40 02/15/17 04:00 94 02/15/17 04:00 100 40 02/15/17 04:00 98.5 94 10 100 122/60 (80) 02/15/17 02:00 40 02/15/17 02:00 94 02/15/17 00:33 100 40 02/15/17 00:00 98.4 102 13 118/66 (83) 100 118/66 (83) 02/15/17 00:00 102 02/15/17 00:00 40 02/14/17 22:00 40 02/14/17 22:00 91 02/14/17 21:15 92/62 02/14/17 21:00 93/50 02/14/17 20:30 89 104/82 02/14/17 20:09 100 40 02/14/17 20:00 40 02/14/17 20:00 86 02/14/17 20:00 98.8 89 10 127/59 (81) 100 127/59 (81) 02/14/17 19:00 100 Mechanical Ventilator 40 02/14/17 18:00 83 02/14/17 16:27 100 40 02/14/17 16:00 81 02/14/17 16:00 40 02/14/17 16:00 98.7 84 10 140/63 (88) 100 120/48 (72) 02/14/17 14:00 97 -: 02/15/17 0350 02/15/17 0350 Physical Exam General Appearance: Well Developed Neck Neck Exam: Neck Supple Pulmonary Resp Exam: Decreased Bases Cardiology CV Exam: Arrhythmia Gastrointestinal/Abdomen GI Exam: Soft, Distended Extremeties Extremities Exam: Pitting Edema Assessment/Plan Problem List: (1) HARVEY (acute kidney injury) ICD Codes: N17.9 - Acute kidney failure, unspecified Status: Acute Plan: Patient has congestive heart failure Continues on Bumex drip at 2 mg/hr 2L/hour UOP. Creatinine stable at 2. Continue diuresis - on bumex, given diamox. Avoid nephrotoxins follow BMP (2) Hematoma (nontraumatic) of breast ICD Codes: N64.89 - Other specified disorders of breast Plan: Surgically operated on (3) Bilateral lower extremity edema ICD Codes: R60.0 - Bilateral lower extremity edema Status: Acute Plan: Due to congestive heart failure (4) CHF (congestive heart failure) ICD Codes: I50.9 - CHF (congestive heart failure) Status: Chronic Plan: With acute decompensation Lasix ordered after surgery (5) UTI (urinary tract infection) ICD Codes: N39.0 - UTI (urinary tract infection) Status: Acute Plan: Gram-negative Enterobacter cefepime Problem Qualifiers (1) CHF (congestive heart failure): Qualified Codes: I50.33 - Acute on chronic diastolic (congestive) heart failure Nate Rios MD Feb 15, 2017 12:51
[2017-02-15] MEDS: METOCLOPRAMIDE HCL 10 MG/2 ML VIAL IV PUSH SCH ×2 (13:57→21:06)
[2017-02-16] VITALS (17 sets, daily range): BP systolic 109–157; BP diastolic 52–68; PULSE 93–117; RESP 12–22; TEMP 97.9–99.1; O2SAT 100
[2017-02-16] MEDS: RESP: ALBUTEROL 2.5 MG/IPRATROPIUM 0.5 MG NEB (SCH) INH ×4 (03:00→20:03)
[2017-02-16] MEDS: ALBUMIN 25% INJ 100 ML IV SCH ×3 (03:00→18:31)
[2017-02-16] MEDS: CHLORHEXIDINE GLUCONATE 2 % 1 PACK (2 CLOTHS) TOP SCH (04:00)
[2017-02-16] MEDS: EPOPROSTENOL NEB SOLUTION 50 NG/KG/MIN 100 ML NEB SCH ×6 (04:41→18:31)
[2017-02-16 05:50] LABS: APTT (PATIENT) 50.3 SEC (24.3-30.1); INTERNATIONAL NORMALIZED RATIO 1.6 RATIO; PROTHROMBIN TIME - PATIENT 18.1 SEC (9.8-11.6)
[2017-02-16] MEDS: METOCLOPRAMIDE HCL 10 MG/2 ML VIAL IV PUSH SCH ×3 (05:52→20:23)
[2017-02-16 05:54] LABS: BICARBONATE 31.4 MEQ/L (21.0-32.0); MEAN CELL VOLUME 85.6 FL (80.0-100.0); MEAN CORPUSCULAR HEMOGLOBIN 27.3 PG (27.0-34.0); MEAN CORPUSCULAR HGB CONC 31.9 % (32.0-36.0); PLATELET COUNT 226 TH/MM3 (150-450); RED BLOOD COUNT 3.39 MIL/MM3 (4.00-5.30); RED CELL DISTRIBUTION WIDTH 22.5 % (11.6-17.2); WHITE BLOOD COUNT 7.8 TH/MM3 (4.0-11.0)
[2017-02-16 05:56] LABS: INDIRECT BILIRUBIN 0.9 MG/DL (0.0-0.8); TOTAL BILIRUBIN ADULT 2.3 MG/DL (0.2-1.0)
[2017-02-16] MEDS: INSULIN ASPART SUPPLEMENTAL SCALE SQ SCH ×4 (06:00→18:00)
[2017-02-16 06:15] LABS: REVIEW FLAG FINAL
[2017-02-16] MEDS: CHLORHEXIDINE 0.12% (ORAL KIT) 15 ML CUP MT SCH ×2 (08:00→20:21)
[2017-02-16] MEDS: ARTIFICIAL TEARS OPTH SOLN 15 ML BTL EACH EYE SCH ×3 (09:00→18:00)
[2017-02-16] MEDS: SENNOSIDES 8.6 MG TAB PO SCH ×2 (09:00→20:09)
[2017-02-16] MEDS: FERROUS SULFATE 325 MG (65 MG ELEMENTAL IRON) TAB PO SCH ×2 (09:00→20:21)
[2017-02-16] MEDS: SODIUM CHLORIDE 0.9% FLUSH 10 ML FLUSH IV FLUSH SCH ×2 (09:00→20:21)
[2017-02-16] MEDS: AMIODARONE 200 MG TAB PO SCH (09:44)
[2017-02-16] MEDS: DOCUSATE SODIUM 50 MG/SENNA 8.6 MG TAB PO SCH ×2 (09:44→20:09)
[2017-02-16] MEDS: HEPARIN SODIUM - SQ 10,000 UNITS/ML VIAL SQ SCH ×2 (09:44→20:22)
[2017-02-16] MEDS: BISACODYL 10 MG SUPP RECTAL SCH (09:44)
[2017-02-16] MEDS: MAGNESIUM HYDROXIDE SUSP 30 ML CUP PO SCH ×2 (09:44→20:09)
[2017-02-16] MEDS: LACTULOSE SYRUP 20 GM/30 ML CUP PO SCH ×4 (09:44→20:22)
[2017-02-16] MEDS: POLYETHYLENE GLYCOL 17 GM PKG PO SCH ×2 (09:44→20:09)
[2017-02-16] MEDS: PANTOPRAZOLE SODIUM 40 MG VIAL IV PUSH SCH (09:44)
[2017-02-16] MEDS: CEFEPIME INJ 2,000 MG in SODIUM CHLORIDE 0.9% INJ 100 ML IV SCH ×2 (10:23→11:06)
--- NOTE | 2017-02-16 11:50 | HHI.CCPN ---
Subjective Remarks/Hospital Course Hospital Course: This is a 71-year-old Afro[place] female. Date of admission 02/04/2017. Past medical history includes diastolic congestive heart failure, COPD, chronic atrial fibrillation, diabetes, hypertension and history of MSSA infection on cefazolin. Patient presents to [facility] initially on 02/04 with left breast swelling. In November/2016, patient was diagnosed with endocarditis and AICD infection. At that time, Pacemaker removed . Since that time she's had increasing swelling in her left breast and currently has an abscess of the location 11.8 cm in size. She also complained of Shortness of breath. This is associated with a self-reported 50 pound weight gain with bilateral lower extremity edema and significant stomach swelling. She also reports shortness of breath. She was treated with cefazolin at home include 01/29/2017. After cessation of treatment, she noted The patient reports a significant increase in her left breast swelling over the past 2-3 days. She states the area is tender to palpation and painful. She does not have a leukocytosis. Breast ultrasound showed a complex cystic lesion measuring up to 11.8 cm in the left breast that could represent a fluid collection or old hematoma. Today in 02/10, patient ID of her left breast by Dr. Joy. 300 crystalloid. EBL 50. Urine output 60. Patient received 40 mg torsemide IV post procedure. Her oxygenation requirements increasing currently on BiPAP. She is currently unresponsive when seen in [facility]. She'll be intubated at the present time Subjective: 02/11: intubated overnight. now on vasopressors with fever. likely mixed cardiogenic/septic shock from a combination of volume overload and breast abscess. Also has significant bilateral pleural effusion, left > right by CXR and bedside ultrasound. significantly up in weight. respiratory failure likely from volume overload, although worsening acute kidney injury and shock complicates picture. 02/12: despite aggressive diuresis increasing to bumex drip, still net + and poor diuresis. may require dialysis if no improvement. remains borderline hypoglycemic. renal function continues to worsen. no BM x 2 days. peak pressures on vent elevated. CT chest yesterday without significant effusions but completely collapsed LLL, likely a large component of atelectasis from severe cardiomegaly, but cannot rule out pna. no meaningful improvements from yesterday. 11/16: much improved diuresis yesterday and now net negative 1.7L/24h. Cr still uptrending, but only slightly. pulmonary compliance also has improved with overnight APRV. discussed care with Dr. Garcia and we both agree that inhaled epoprostenol may be of benefit in assisting with RV function to mitigate severe TR and assist with diuresis and hemodynamics. ammonia up slightly, although now having regular bowel movements. 02/14: good diuresis. Cr plateaued. LFTs and T bili slightly worse. ammonia stable without significant improvements. also had 1 episode of emesis today: tube feeds on hold and NGT to LIWS. 02/15: Heart is shaped like a bowling ball. Gas exchange much improved, continued diuresis. Residual NG aspirate > 500 - will reconnect to LIS, start reglan. Decrease T-high to 4.5, add pressure support 5. Lighten fentanyl. Diarrhea remains problematic. 02/16: blood pressure improved. bnp still uptrending. good diuresis. art line removed for non-functioning. Objective Vital Signs Date Time Temp Pulse Resp B/P (MAP) Pulse Ox O2 Delivery O2 Flow Rate FiO2 02/16/17 11:27 100 35 02/16/17 10:00 100 02/16/17 08:00 98.6 13 157/68 (97) 02/16/17 07:00 Mechanical Ventilator Intake and Output 02/16/17 02/16/17 02/17/17 08:00 16:00 00:00 Intake Total 1277 ml Output Total 3350 ml Balance -2073 ml Result Diagram: 02/16/17 0455 02/16/17 0455 Imaging Last Impressions Head CT 02/11/17 0000 Signed Impressions: Service Date/Time: Saturday, February 11, 2017 04:32 - CONCLUSION: Normal examination. Tyrone Simmons MD Renal Ultrasound 02/10/17 0000 Signed Impressions: Service Date/Time: Friday, February 10, 2017 23:06 - CONCLUSION: Normal examination. No evidence of obstruction or hydronephrosis.. Tyrone Simmons MD Chest X-Ray 02/10/17 0000 Signed Impressions: Service Date/Time: Friday, February 10, 2017 21:41 - CONCLUSION: 1. ET tube 1 cm from the anai. This can be pulled back 2 cm to be in a better position. 2. Cardiomegaly. Multiple electronic devices are seen over the chest. 3. Diffuse pulmonary consolidations likely representing edema. There is further atelectasis or consolidation the bases and probably bilateral effusions. Gregory Perry MD Breast Ultrasound 02/03/17 0000 Signed Impressions: Service Date/Time: Friday, February 03, 2017 18:49 - CONCLUSION: Complex cystic lesion measuring up to 11.8 cm centered at the 12:00 position left breast. Given the clinical history of recent procedure in this area this could represent a noninfected or infected fluid collection. Given the complex internal architecture, percutaneous drainage will likely not be successful. Once the patient's condition permits, consider outpatient diagnostic mammogram and ultrasound followup. Gregory Bob MD ADDENDUM: Another consideration given the prior CT appearance and current imaging findings is an old hematoma. Gregory Bob MD Abdomen/Pelvis CT 02/03/17 0000 Signed Impressions: Service Date/Time: Friday, February 03, 2017 17:35 - CONCLUSION: 1. CT findings characteristic of right heart insufficiency with diffuse but stable anasarca in the visible soft tissues and leaves of the mesentery as well as a small amount of ascites. Intrahepatic IVC is markedly dilated. 2. Previously identified bilateral pleural effusions are significantly improved with only a small amount of fluid on the left. There is some persistent atelectasis in the left base. 3. Heart size remains prominent. 4. Otherwise stable. Mt Alvarez MD Objective Remarks GENERAL: 71-year-old a female, lying in bed, intubated, sedated, critically ill appearing. SKIN: Warm and dry. No rash HEAD: Atraumatic. Normocephalic. EYES: Pupils equal and round bilaterally reactive. No conjunctival icterus. No injection or drainage. ENT: No nasal bleeding or discharge. Mucous membranes pink and moist. NECK: Trachea midline. large neck circumference prevents accurate assessment of JVD. orotracheally intubated CARDIOVASCULAR: Regular rate and rhythm, on levophed. RESPIRATORY: APRV 26/0, fio2 35%. improved chest wall excursion. THORAX - left breast less indurated than before. LifeVest still in place. GASTROINTESTINAL: Abdomen soft, obese, nondistended. NGT output significantly slowed and no output over last 6 hours. MUSCULOSKELETAL: Extremities 2+ lower extremity edema. No obvious deformities. NEUROLOGICAL: RASS -3. does not follow commands. intubated, sedated. w/d to pain. A/P Assessment and Plan Assessment: 71yF with h/o ICM, prior EF reported at 15%, s/p placement of AICD, recovery of LVEF to 60%, AICD infection s/p lead extraction, now with breast abscess, septic shock, volume overload, acute Systolic CHF exacerbation, acute hypoxic respiratory failure. Remains in shock on vasopressors. remains off pathway with little overall improvements. I had a long conversation with the family on 02/12 in which we talked about her overall poor prognosis given her severe cardiomyopathy and heart failure, and that even if we had complete recovery of her acute illness, she has a overall terminal process. We talked about if we had no improvement in 7-10 days, we would need to discuss further invasive procedures such as trach/PEG and what her goals of care going forward are. Daily plan includes addition of sildenafil, if she tolerates this, wean Flolan. continue diuresis as BNP remains elevated and Cr still coming down. add diamox for alkalosis. continue bowel motility and again start trickle tube feeds (do not advance). Still very much off pathway with little improvements. highly complex with multiple medical problems. unlikely to have favorable outcome. Neuro/Psych: Metabolic Encephalopathy - secondary to co2 retention and sepsis. Hyperammonemia Hypoactive delirium Currently on propofol/fentanyl drips for sedation/analgesia while intubated Goal of RASS -[address] brain 02/10- negative for acute disease. Add amantadine for improved wakefulness. CV: Acute CHF exacerbation: mixed type, including systolic, diastolic, and valvulopathy from severe tricuspid regurgitation. History arrhythmia/ chronic atrial fibrillation - LifeVest since 11/2016 Hypertension Coronary disease status post stent 3 Moderate to severe TR Acute intravascular volume overload Cor Pulmonale 2-D echocardiogram revealed EF of 60%. Severe TR. PAP 33 mmHg, bedside critical care echo 02/11: moderately depressed LV function. clinically significant TR. hold metoprolol, enalapril, amlodipine for hypotension Previously on bumetanide 2 mg daily with KCl 10 mEq twice a day. continue bumex drip to 2mg/hr. diamox 500mg iv q8h. continue concentrated albumin. Continue amiodarone 200 mg by mouth daily Dr. Feliciano - cardiology and Dr. Garcia, CT surgery following hold spironolactone given renal function. hold Sacibutril/Valsartan / while on vasopressors. continue inhaled epoprostenol at 50 ng/kg/min for RV support. start sildenafil 20mg po q8hr. Resp: Acute hypoxic respiratory failure Compressive atelectasis/consolidation LLL Possible LLL HCAP pneumonia Acute pulmonary edema Severe acute intravascular volume overload COPD - 3 L oxygen dependent drop and stretch: APRV 6.4:1, 26/0. PS 5. Ventilator bundle Albuterol/ipratropium aerosols every 4 hours albuterol aerosols every 2 hours. Dyspnea Spontaneous breathing trials daily wean fio2 for goal spo2 > 90% CT chest 02/11: moderate right pleural effusion. densely consolidated LLL. severe cardiomegaly. no drainable effusion which is large enough to prevent pulmonary mechanics. GI: Hyperammonemia Acute protein calorie malnutrition - moderate Acute intravascular volume overload Obesity Constipation - improving. Abdominal Distension NGT to LIWS. can restart TF at trickles. low threshold to make npo again if high residuals. Pantoprazole for GI prophylaxis Docusate sodium/senna for bowel regimen lactulose qid for elevated ammonia which is likely secondary to early congestive hepatopathy trend daily ammonias. daily BMPs diuresis as above. continue aggressive bowel regimen. : Acute Kidney Injury- improving. maintain ellis today. forced diuresis as above kidney injury likely multifactorial and combination of shock and venous congestion from volume overload. lungs and heart function require urgent forced diuresis, despite kidney injury. Endo: Diabetes mellitus Hypoglycemia Will hold insulin detemir 27 units at night. Currently on sliding scale insulin with Novulog low regimen every 6 hours d10w @ 42cc/hr. maintain dextrose source while npo. Renal: Acute kidney injury in the setting of chronic kidney disease stage III Followed by nephrology/by Dr. Love Avoid nephrotoxic drugs may need [employer] in the near future. Heme: Normocytic anemia Chronic warfarin use Currently holding warfarin 4 mg daily. Repeat CBC and INR daily Does not meet transfusion threshold at this time Currently on iron sulfate 325 mg by mouth twice a day ID: Escherichia coli UTI History of MSSA abscess to left breast Pertinent cultures 02/08 - urine - gram-negative bela 11/7 - blood cultures 2- no growth 02/03 - urine - Escherichia coli Followed by Dr. Tamayo/ID Currently on levofloxacin 250 mg daily and cefepime. FEN: Replace electrolytes as clinically indicated MSK: Postop day #7 I&D left breast hematoma by Dr. Garcia PT evaluate and treat Access - Utilize peripheral IV. Continue to use right upper extremity single lumen PICC line. Central line if indicated Prophylaxis - GI - pantoprazole - DVT - SCD/SQH 5000 q12h. Overall impression: Good progress getting fluid off; consistently negative balance. TR may be the limiting factor in our ability to improve her hemodynamic status. Sanket Rodarte MD Feb 16, 2017 11:50
--- NOTE | 2017-02-16 12:18 | HHI.NPPN ---
Subjective History of Present Illness 71 year old female with ARF/CHF.Hematoma Left breast Additional Remarks intubated Objective Data Data Vital Signs Date Time Temp Pulse Resp B/P (MAP) Pulse Ox O2 Delivery O2 Flow Rate FiO2 02/16/17 11:27 100 35 02/16/17 10:00 35 02/16/17 10:00 100 02/16/17 08:00 98.6 101 13 100 157/68 (97) 02/16/17 08:00 101 02/16/17 08:00 35 02/16/17 07:55 122 164/72 02/16/17 07:23 100 35 02/16/17 07:23 35 02/16/17 07:00 100 Mechanical Ventilator 35 02/16/17 06:00 102 02/16/17 06:00 35 02/16/17 04:00 100 35 02/16/17 04:00 104 02/16/17 04:00 98.8 104 12 100 136/56 (82) 02/16/17 04:00 35 02/16/17 02:00 35 02/16/17 02:00 104 02/16/17 00:56 100 35 02/16/17 00:00 35 02/16/17 00:00 98.9 111 12 100 109/52 (71) 02/16/17 00:00 111 02/15/17 22:00 112 02/15/17 22:00 35 02/15/17 20:00 35 02/15/17 20:00 98.9 98 12 100 113/54 (73) 02/15/17 20:00 100 02/15/17 19:49 100 35 02/15/17 19:00 100 Mechanical Ventilator 35 02/15/17 18:00 101 02/15/17 18:00 35 02/15/17 16:25 100 35 02/15/17 16:00 99.8 100 13 119/56 (77) 100 101/55 (70) 02/15/17 16:00 100 02/15/17 16:00 35 02/15/17 14:00 35 02/15/17 14:00 102 -: 02/16/17 0455 02/16/17 0455 Physical Exam General Appearance: Well Developed Neck Neck Exam: Neck Supple Pulmonary Resp Exam: Decreased Bases Cardiology CV Exam: Arrhythmia Gastrointestinal/Abdomen GI Exam: Soft, Distended Extremeties Extremities Exam: Pitting Edema Assessment/Plan Problem List: (1) HARVEY (acute kidney injury) ICD Codes: N17.9 - Acute kidney failure, unspecified Status: Acute Plan: Patient has congestive heart failure Continues on Bumex drip at 2 mg/hr 6L UOP/ 24 hours . Creatinine 2 -> 1.8 . Continue diuresis - on bumex, given diamox. Avoid nephrotoxins follow BMP (2) Hematoma (nontraumatic) of breast ICD Codes: N64.89 - Other specified disorders of breast Plan: Surgically operated on (3) Bilateral lower extremity edema ICD Codes: R60.0 - Bilateral lower extremity edema Status: Acute Plan: Due to congestive heart failure (4) CHF (congestive heart failure) ICD Codes: I50.9 - CHF (congestive heart failure) Status: Chronic Plan: With acute decompensation Lasix ordered after surgery (5) UTI (urinary tract infection) ICD Codes: N39.0 - UTI (urinary tract infection) Status: Acute Plan: Gram-negative Enterobacter cefepime Problem Qualifiers (1) CHF (congestive heart failure): Qualified Codes: I50.33 - Acute on chronic diastolic (congestive) heart failure Nate Rios MD Feb 16, 2017 12:18
[2017-02-16] MEDS: POTASSIUM CHLOR 20 MEQ PREMIX 100 ML IV SCH ×4 (12:27→20:20)
[2017-02-16] MEDS: BUMETANIDE INJ 100 ML IV SCH ×2 (12:27→22:15)
[2017-02-16] MEDS: AMANTADINE HCL SOLN 100 MG/10 ML UDC PO SCH ×2 (12:30→20:22)
[2017-02-16] MEDS ORDERED: MAGNESIUM SULFATE 4 GM PREMIX 100 ML IV ONE (13:00)
[2017-02-16] MEDS ORDERED: MAGNESIUM SULFATE INJ 4 GM in SODIUM CHLORIDE 0.9% INJ 92 ML IV ONE (13:30)
--- NOTE | 2017-02-16 15:24 | HHI.IDPN ---
Subjective Subjective Remarks delayed entry - pt was seen around 2 pm remains afebrile wound clx negative sputum negative remains on vent and not t=olerating weaning Antibiotics levaquine Allergies: Coded Allergies: penicillin G (Unverified Allergy, Severe, rash, 12/31/16) benazepril (Unverified Allergy, Mild, 12/31/16) HUMBLE inhibitor angioedema, swelling of the face lips and anterior tongue captopril (Unverified Allergy, Mild, 12/31/16) HUMBLE inhibitor angioedema, swelling of the face lips and anterior tongue enalaprilat (Unverified Allergy, Mild, 12/31/16) HUMBLE inhibitor angioedema, swelling of the face lips and anterior tongue fosinopril (Unverified Allergy, Mild, 12/31/16) HUMBLE inhibitor angioedema, swelling of the face lips and anterior tongue lisinopril (Unverified Allergy, Mild, 12/31/16) HUMBLE inhibitor angioedema, swelling of the face lips and anterior tongue quinapril (Unverified Allergy, Mild, 12/31/16) HUMBLE inhibitor angioedema, swelling of the face lips and anterior tongue Uncoded Allergies: NON COMPATIBLE PACEMAKER (Adverse Reaction, Severe, MRI PRECAUTION / PACEMAKER, 11/03/14) MRI PRECAUTION. PACEMAKER Objective . Vital Signs Date Time Temp Pulse Resp B/P (MAP) Pulse Ox O2 Delivery O2 Flow Rate FiO2 02/16/17 12:00 103 02/16/17 12:00 97.9 103 13 100 121/59 (79) 02/16/17 12:00 35 02/16/17 11:27 100 35 02/16/17 10:00 35 02/16/17 10:00 100 02/16/17 08:00 98.6 101 13 100 157/68 (97) 02/16/17 08:00 101 02/16/17 08:00 35 02/16/17 07:55 122 164/72 02/16/17 07:23 100 35 02/16/17 07:23 35 02/16/17 07:00 100 Mechanical Ventilator 35 02/16/17 06:00 102 02/16/17 06:00 35 02/16/17 04:00 100 35 02/16/17 04:00 104 02/16/17 04:00 98.8 104 12 100 136/56 (82) 02/16/17 04:00 35 02/16/17 02:00 35 02/16/17 02:00 104 02/16/17 00:56 100 35 02/16/17 00:00 35 02/16/17 00:00 98.9 111 12 100 109/52 (71) 02/16/17 00:00 111 02/15/17 22:00 112 02/15/17 22:00 35 02/15/17 20:00 35 02/15/17 20:00 98.9 98 12 100 113/54 (73) 02/15/17 20:00 100 02/15/17 19:49 100 35 02/15/17 19:00 100 Mechanical Ventilator 35 02/15/17 18:00 101 02/15/17 18:00 35 02/15/17 16:25 100 35 02/15/17 16:00 99.8 100 13 119/56 (77) 100 101/55 (70) 02/15/17 16:00 100 02/15/17 16:00 35 . Laboratory Tests Test 02/15/17 03:50 02/16/17 04:55 White Blood Count 12.2 TH/MM3 7.8 TH/MM3 Red Blood Count 3.53 MIL/MM3 3.39 MIL/MM3 Hemoglobin 9.9 GM/DL 9.3 GM/DL Hematocrit 30.5 % 29.0 % Mean Corpuscular Volume 86.4 FL 85.6 FL Mean Corpuscular Hemoglobin 28.1 PG 27.3 PG Mean Corpuscular Hemoglobin Concent 32.5 % 31.9 % Red Cell Distribution Width 23.4 % 22.5 % Platelet Count 265 TH/MM3 226 TH/MM3 Mean Platelet Volume 6.4 FL 6.6 FL Laboratory Tests Test 02/15/17 03:50 02/16/17 04:55 Blood Urea Nitrogen 32 MG/DL 31 MG/DL Creatinine 2.02 MG/DL 1.87 MG/DL Random Glucose 95 MG/DL 89 MG/DL Total Protein 7.4 GM/DL 7.8 GM/DL Albumin 3.9 GM/DL 4.2 GM/DL Calcium Level 8.2 MG/DL 8.7 MG/DL Alkaline Phosphatase 64 U/L 66 U/L Aspartate Amino Transf (AST/SGOT) 15 U/L 12 U/L Alanine Aminotransferase (ALT/SGPT) LESS THAN 6 U/L 9 U/L Total Bilirubin 2.0 MG/DL 2.3 MG/DL Direct Bilirubin 1.3 MG/DL 1.4 MG/DL Sodium Level 138 MEQ/L 136 MEQ/L Potassium Level 3.5 MEQ/L 3.0 MEQ/L Chloride Level 101 MEQ/L 96 MEQ/L Carbon Dioxide Level 28.0 MEQ/L 31.4 MEQ/L Anion Gap 9 MEQ/L 9 MEQ/L Estimat Glomerular Filtration Rate 29 ML/MIN 32 ML/MIN Indirect Bilirubin 0.7 MG/DL 0.9 MG/DL Ammonia 39 MCMOL/L 34 MCMOL/L B-Type Natriuretic Peptide 2543 PG/ML 2924 PG/ML Imaging Last Impressions Chest X-Ray 02/13/17 0000 Signed Impressions: Service Date/Time: January 08:46 - CONCLUSION: Improving bibasilar infiltrates. Quinn Talbot Jr., MD Head CT 02/11/17 0000 Signed Impressions: Service Date/Time: Saturday, February 11, 2017 04:32 - CONCLUSION: Normal examination. Tyrone Simmons MD Chest CT 02/11/17 0000 Signed Impressions: Service Date/Time: Saturday, February 11, 2017 22:16 - CONCLUSION: Heart is quite enlarged. ET tube is in good position. There is a dense consolidation involving almost the entire left lower lobe with small left pleural effusion. There is a moderate size right pleural effusion measuring 3.2 x 6.0 cm across. Tyrone Simmons MD Renal Ultrasound 02/10/17 0000 Signed Impressions: Service Date/Time: Friday, February 10, 2017 23:06 - CONCLUSION: Normal examination. No evidence of obstruction or hydronephrosis.. Tyrone Simmons MD Breast Ultrasound 02/03/17 0000 Signed Impressions: Service Date/Time: Friday, February 03, 2017 18:49 - CONCLUSION: Complex cystic lesion measuring up to 11.8 cm centered at the 12:00 position left breast. Given the clinical history of recent procedure in this area this could represent a noninfected or infected fluid collection. Given the complex internal architecture, percutaneous drainage will likely not be successful. Once the patient's condition permits, consider outpatient diagnostic mammogram and ultrasound followup. Gregory Bob MD ADDENDUM: Another consideration given the prior CT appearance and current imaging findings is an old hematoma. Gregory Bob MD Abdomen/Pelvis CT 02/03/17 0000 Signed Impressions: Service Date/Time: Friday, February 03, 2017 17:35 - CONCLUSION: 1. CT findings characteristic of right heart insufficiency with diffuse but stable anasarca in the visible soft tissues and leaves of the mesentery as well as a small amount of ascites. Intrahepatic IVC is markedly dilated. 2. Previously identified bilateral pleural effusions are significantly improved with only a small amount of fluid on the left. There is some persistent atelectasis in the left base. 3. Heart size remains prominent. 4. Otherwise stable. Mt Alvarez MD Physical Exam CONSTITUTIONAL/GENERAL: This is an adequately nourished patient, in no apparent distress. TUBES/LINES/DRAINS: SKIN: No jaundice, rashes, or lesions. Skin temperature appropriate. Not diaphoretic. L breast dressing in place, less edematous HEENT: orally intubated CARDIOVASCULAR: Regular rate and rhythm without murmurs, gallops, or rubs. No JVD. Peripheral pulses symmetric. RESPIRATORY/CHEST: Symmetric, unlabored respirations. Clear to auscultation. Breath sounds equal bilaterally. No wheezes, rales, or rhonchi. GASTROINTESTINAL: Abdomen soft, non-tender, distended with prominent edema. No hepato-splenomegaly, or palpable masses. No guarding. Bowel sounds present. GENITOURINARY: Without palpable bladder distension. Wolff catheter in place with clear light yellow urine MUSCULOSKELETAL: Extremities without clubbing, cyanosis, Markedly improved edema , anasarca LUE with less non pitting edema LYMPHATICS: No palpable cervical or supraclavicular adenopathy. 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 LLL PNA vs atelectatic changes CHF with fluid oveload Probably asymptomati asymptomatic bacteriuria Acute VDRF 2/2 severe CHF ? PNA CT from 02/11/17 showed a dense consolidation on th e L, but sputum clx is negative - could be atelectatic changes 2/2 failure and post -op involving almost the entire left lower lobe with small left pleural effusion. ARF on CKD, worsening creatinine Critically ill and unstable from resp status fu sputum clx follow wound clx dc cefepime, dw Darleen Caban MD Feb 16, 2017 15:24
[2017-02-16] MEDS: SILDENAFIL CITRATE 20 MG TAB PO SCH ×2 (15:39→20:22)
[2017-02-16] MEDS: DEXTROSE 10% INJ 1,000 ML IV SCH (16:05)
[2017-02-17] VITALS (17 sets, daily range): BP systolic 134–152; BP diastolic 60–92; PULSE 85–102; RESP 11–12; TEMP 98.4–99.7; O2SAT 100
[2017-02-17] MEDS: RESP: ALBUTEROL 2.5 MG/IPRATROPIUM 0.5 MG NEB (SCH) INH ×6 (00:27→21:08)
[2017-02-17] MEDS: ALBUMIN 25% INJ 100 ML IV SCH ×3 (02:58→17:50)
[2017-02-17] MEDS: CHLORHEXIDINE GLUCONATE 2 % 1 PACK (2 CLOTHS) TOP SCH ×2 (02:59→20:03)
[2017-02-17] MEDS: fentaNYL DRIP 250 ML IV PRN (03:53)
[2017-02-17] MEDS: METOCLOPRAMIDE HCL 10 MG/2 ML VIAL IV PUSH SCH ×3 (04:41→20:30)
[2017-02-17] MEDS: EPOPROSTENOL NEB SOLUTION 50 NG/KG/MIN 100 ML NEB SCH ×4 (04:41→10:00)
[2017-02-17] MEDS: SILDENAFIL CITRATE 20 MG TAB PO SCH ×3 (04:41→20:30)
[2017-02-17 04:45] LABS: HEMATOCRIT 28.3 % (35.0-46.0); MEAN CELL VOLUME 86.5 FL (80.0-100.0); MEAN CORPUSCULAR HEMOGLOBIN 27.4 PG (27.0-34.0); MEAN CORPUSCULAR HGB CONC 31.6 % (32.0-36.0); PLATELET COUNT 219 TH/MM3 (150-450); RED BLOOD COUNT 3.28 MIL/MM3 (4.00-5.30); RED CELL DISTRIBUTION WIDTH 22.3 % (11.6-17.2); WHITE BLOOD COUNT 8.6 TH/MM3 (4.0-11.0)
[2017-02-17 04:49] LABS: REVIEW FLAG FINAL
[2017-02-17 05:05] LABS: POTASSIUM 3.5 MEQ/L (3.5-5.1)
[2017-02-17] MEDS: INSULIN ASPART SUPPLEMENTAL SCALE SQ SCH ×4 (06:00→17:49)
[2017-02-17] MEDS: DOCUSATE SODIUM 50 MG/SENNA 8.6 MG TAB PO SCH ×2 (08:16→20:31)
[2017-02-17] MEDS: LACTULOSE SYRUP 20 GM/30 ML CUP PO SCH ×4 (08:16→20:28)
[2017-02-17] MEDS: AMANTADINE HCL SOLN 100 MG/10 ML UDC PO SCH ×2 (08:16→20:31)
[2017-02-17] MEDS: AMIODARONE 200 MG TAB PO SCH (08:16)
[2017-02-17] MEDS: SENNOSIDES 8.6 MG TAB PO SCH ×2 (08:16→20:30)
[2017-02-17] MEDS: PANTOPRAZOLE SODIUM 40 MG VIAL IV PUSH SCH (08:16)
[2017-02-17] MEDS: FERROUS SULFATE 325 MG (65 MG ELEMENTAL IRON) TAB PO SCH ×2 (08:17→20:31)
[2017-02-17] MEDS: HEPARIN SODIUM - SQ 10,000 UNITS/ML VIAL SQ SCH ×2 (08:17→20:29)
[2017-02-17] MEDS: SODIUM CHLORIDE 0.9% FLUSH 10 ML FLUSH IV FLUSH SCH ×2 (08:17→20:31)
[2017-02-17] MEDS: MAGNESIUM HYDROXIDE SUSP 30 ML CUP PO SCH ×2 (08:17→20:28)
[2017-02-17] MEDS: CHLORHEXIDINE 0.12% (ORAL KIT) 15 ML CUP MT SCH ×2 (08:17→20:00)
[2017-02-17] MEDS: ARTIFICIAL TEARS OPTH SOLN 15 ML BTL EACH EYE SCH ×3 (08:18→17:50)
[2017-02-17] MEDS: POLYETHYLENE GLYCOL 17 GM PKG PO SCH ×2 (08:18→20:31)
[2017-02-17] MEDS: BISACODYL 10 MG SUPP RECTAL SCH (08:18)
--- NOTE | 2017-02-17 09:22 | HHI.CCPN ---
Subjective Remarks/Hospital Course Hospital Course: This is a 71-year-old Afro-Y[place]i female. Date of admission 02/04/2017. Past medical history includes diastolic congestive heart failure, COPD, chronic atrial fibrillation, diabetes, hypertension and history of MSSA infection on cefazolin. Patient [facility] to [facility] initially on 02/04 with left breast swelling. In November/2016, patient was diagnosed with endocarditis and AICD infection. At that time, Pacemaker removed . Since that time she's had increasing swelling in her left breast and currently has an abscess of the location 11.8 cm in size. She also complained of Shortness of breath. This is associated with a self-reported 50 pound weight gain with bilateral lower extremity edema and significant stomach swelling. She also reports shortness of breath. She was treated with cefazolin at home include 01/29/2017. After cessation of treatment, she noted The patient reports a significant increase in her left breast swelling over the past 2-3 days. She states the area is tender to palpation and painful. She does not have a leukocytosis. Breast ultrasound showed a complex cystic lesion measuring up to 11.8 cm in the left breast that could represent a fluid collection or old hematoma. Today in 02/10, patient ID of her left breast by Dr. Joy. 300 crystalloid. EBL 50. Urine output 60. Patient received 40 mg torsemide IV post procedure. Her oxygenation requirements increasing currently on BiPAP. She is currently unresponsive when seen in [facility]. She'll be intubated at the present time Subjective: 02/11: intubated overnight. now on vasopressors with fever. likely mixed cardiogenic/septic shock from a combination of volume overload and breast abscess. Also has significant bilateral pleural effusion, left > right by CXR and bedside ultrasound. significantly up in weight. respiratory failure likely from volume overload, although worsening acute kidney injury and shock complicates picture. 02/12: despite aggressive diuresis increasing to bumex drip, still net + and poor diuresis. may require dialysis if no improvement. remains borderline hypoglycemic. renal function continues to worsen. no BM x 2 days. peak pressures on vent elevated. CT chest yesterday without significant effusions but completely collapsed LLL, likely a large component of atelectasis from severe cardiomegaly, but cannot rule out pna. no meaningful improvements from yesterday. 11/16: much improved diuresis yesterday and now net negative 1.7L/24h. Cr still uptrending, but only slightly. pulmonary compliance also has improved with overnight APRV. discussed care with Dr. Garcia and we both agree that inhaled epoprostenol may be of benefit in assisting with RV function to mitigate severe TR and assist with diuresis and hemodynamics. ammonia up slightly, although now having regular bowel movements. 02/14: good diuresis. Cr plateaued. LFTs and T bili slightly worse. ammonia stable without significant improvements. also had 1 episode of emesis today: tube feeds on hold and NGT to LIWS. 02/15: Heart is shaped like a bowling ball. Gas exchange much improved, continued diuresis. Residual NG aspirate > 500 - will reconnect to LIS, start reglan. Decrease T-high to 4.5, add pressure support 5. Lighten fentanyl. Diarrhea remains problematic. 02/16: blood pressure improved. bnp still uptrending. good diuresis. art line removed for non-functioning. 02/17: still diuresing with > 2L/24h negative balance. Cr still downtrending. bp still stable. tolerated initiation of sildenafil. persists with high gastric residuals. KUB with adynamic ileus. starting to weakly follow commands this morning, but still very somnolent. Objective Vital Signs Date Time Temp Pulse Resp B/P (MAP) Pulse Ox O2 Delivery O2 Flow Rate FiO2 02/17/17 07:29 100 35 02/17/17 06:00 99 02/17/17 04:00 98.4 12 140/60 (86) 02/16/17 19:00 Mechanical Ventilator Intake and Output 02/17/17 02/17/17 02/18/17 08:00 16:00 00:00 Output Total 1100 ml Balance -1100 ml Result Diagram: 02/17/17 0430 02/17/17 0430 Imaging Last Impressions Head CT 02/11/17 0000 Signed Impressions: Service Date/Time: Saturday, February 11, 2017 04:32 - CONCLUSION: Normal examination. Tyrone Simmons MD Renal Ultrasound 02/10/17 0000 Signed Impressions: Service Date/Time: Friday, February 10, 2017 23:06 - CONCLUSION: Normal examination. No evidence of obstruction or hydronephrosis.. Tyrone Simmons MD Chest X-Ray 02/10/17 0000 Signed Impressions: Service Date/Time: Friday, February 10, 2017 21:41 - CONCLUSION: 1. ET tube 1 cm from the anai. This can be pulled back 2 cm to be in a better position. 2. Cardiomegaly. Multiple electronic devices are seen over the chest. 3. Diffuse pulmonary consolidations likely representing edema. There is further atelectasis or consolidation the bases and probably bilateral effusions. Gregory Perry MD Breast Ultrasound 02/03/17 0000 Signed Impressions: Service Date/Time: Friday, February 03, 2017 18:49 - CONCLUSION: Complex cystic lesion measuring up to 11.8 cm centered at the 12:00 position left breast. Given the clinical history of recent procedure in this area this could represent a noninfected or infected fluid collection. Given the complex internal architecture, percutaneous drainage will likely not be successful. Once the patient's condition permits, consider outpatient diagnostic mammogram and ultrasound followup. Gregory Bob MD ADDENDUM: Another consideration given the prior CT appearance and current imaging findings is an old hematoma. Gregory Bob MD Abdomen/Pelvis CT 02/03/17 0000 Signed Impressions: Service Date/Time: Friday, February 03, 2017 17:35 - CONCLUSION: 1. CT findings characteristic of right heart insufficiency with diffuse but stable anasarca in the visible soft tissues and leaves of the mesentery as well as a small amount of ascites. Intrahepatic IVC is markedly dilated. 2. Previously identified bilateral pleural effusions are significantly improved with only a small amount of fluid on the left. There is some persistent atelectasis in the left base. 3. Heart size remains prominent. 4. Otherwise stable. Mt Alvarez MD Objective Remarks GENERAL: 71-year-old a female, lying in bed, intubated, sedated, critically ill appearing. SKIN: Warm and dry. No rash HEAD: Atraumatic. Normocephalic. EYES: Pupils equal and round bilaterally reactive. No conjunctival icterus. No injection or drainage. ENT: No nasal bleeding or discharge. Mucous membranes pink and moist. NECK: Trachea midline. large neck circumference prevents accurate assessment of JVD. orotracheally intubated CARDIOVASCULAR: Regular rate and rhythm, on levophed. RESPIRATORY: APRV 26/0, fio2 35%. improved chest wall excursion. THORAX - left breast less indurated than before. LifeVest still in place. GASTROINTESTINAL: Abdomen soft, obese, nondistended. NGT output remains high > 250cc/4h. MUSCULOSKELETAL: Extremities 2+ lower extremity edema. No obvious deformities. NEUROLOGICAL: RASS -3. starting to intermittently follow commands. off sedation. A/P Assessment and Plan Assessment: 71yF with h/o ICM, prior EF reported at 15%, s/p placement of AICD, recovery of LVEF to 60%, AICD infection s/p lead extraction, now with breast abscess, septic shock, volume overload, acute Systolic CHF exacerbation, acute hypoxic respiratory failure. Remains in shock on vasopressors. remains off pathway with little overall improvements. I had a long conversation with the family on 02/12 in which we talked about her overall poor prognosis given her severe cardiomyopathy and heart failure, and that even if we had complete recovery of her acute illness, she has a overall terminal process. We talked about if we had no improvement in 7-10 days, we would need to discuss further invasive procedures such as trach/PEG and what her goals of care going forward are. Daily plan includes addition of carvedilol for better bp control and CHF control. continue diuresis. continue diamox. advance bowel regimen and keep NPO. Still very much off pathway with little improvements. highly complex with multiple medical problems. unlikely to have favorable outcome. will involve palliative care. Neuro/Psych: Metabolic Encephalopathy - secondary to co2 retention and sepsis. Hyperammonemia Hypoactive delirium Currently on propofol/fentanyl drips for sedation/analgesia while intubated Goal of RASS -[address] brain 02/10- negative for acute disease. amantadine for improved wakefulness. add modafinil for alertness. CV: Acute CHF exacerbation: mixed type, including systolic, diastolic, and valvulopathy from severe tricuspid regurgitation. History arrhythmia/ chronic atrial fibrillation - LifeVest since 11/2016 Hypertension Coronary disease status post stent 3 Moderate to severe TR Acute intravascular volume overload Cor Pulmonale 2-D echocardiogram revealed EF of 60%. Severe TR. PAP 33 mmHg, bedside critical care echo 02/11: moderately depressed LV function. clinically significant TR. hold metoprolol, enalapril, amlodipine for hypotension Previously on bumetanide 2 mg daily with KCl 10 mEq twice a day. continue bumex drip to 2mg/hr. diamox 500mg iv q8h. continue concentrated albumin. Continue amiodarone 200 mg by mouth daily Dr. Feliciano - cardiology and Dr. Garcia, CT surgery following hold spironolactone given renal function. hold Sacibutril/Valsartan 51/49 while on vasopressors. wean Flolan to off. continue sildenafil 20mg po q8hr. add carvedilol 3.125 mg po q12h. Resp: Acute hypoxic respiratory failure Compressive atelectasis/consolidation LLL Possible LLL HCAP pneumonia Acute pulmonary edema Severe acute intravascular volume overload COPD - 3 L oxygen dependent drop and stretch: APRV 6.4:1, 26/0. PS 5. Ventilator bundle Albuterol/ipratropium aerosols every 4 hours albuterol aerosols every 2 hours. Dyspnea Spontaneous breathing trials daily wean fio2 for goal spo2 > 90% CT chest 02/11: moderate right pleural effusion. densely consolidated LLL. severe cardiomegaly. no drainable effusion which is large enough to prevent pulmonary mechanics. GI: Hyperammonemia Acute protein calorie malnutrition - moderate Acute intravascular volume overload Obesity Constipation - improving. Abdominal Distension NGT to LIWS. can restart TF at trickles. low threshold to make npo again if high residuals. Pantoprazole for GI prophylaxis Docusate sodium/senna for bowel regimen lactulose qid for elevated ammonia which is likely secondary to early congestive hepatopathy trend daily ammonias. daily BMPs diuresis as above. continue aggressive bowel regimen: - senna/colace - miraLAX BID - lactulose QID - dulcolax supp daily - reglan 5mg iv q8h - add enema - add relistor SQ - add mag citrate today - if no improvements, may be forced to employ neostigmine tomorrow. KUB with non -obstructive pattern. : Acute Kidney Injury- improving. maintain ellis today. forced diuresis as above kidney injury likely multifactorial and combination of shock and venous congestion from volume overload. lungs and heart function require urgent forced diuresis, despite kidney injury. Endo: Diabetes mellitus Hypoglycemia Will hold insulin detemir 27 units at night. Currently on sliding scale insulin with Novulog low regimen every 6 hours d10w @ 42cc/hr. maintain dextrose source while npo. Renal: Acute kidney injury in the setting of chronic kidney disease stage III - very slowly resolving. Followed by nephrology/by Dr. Love Avoid nephrotoxic drugs Heme: Normocytic anemia Chronic warfarin use Currently holding warfarin 4 mg daily. Repeat CBC and INR daily Does not meet transfusion threshold at this time Currently on iron sulfate 325 mg by mouth twice a day ID: Escherichia coli UTI History of MSSA abscess to left breast Pertinent cultures 02/08 - urine - gram-negative bela 02/04 - blood cultures 2- no growth 02/03 - urine - Escherichia coli Followed by Dr. Tamayo/ID watch off abx. improving. FEN: Replace electrolytes as clinically indicated MSK: Postop day #8 I&D left breast hematoma by Dr. Garcia PT evaluate and treat Access - Utilize peripheral IV. Continue to use right upper extremity single lumen PICC line. Central line if indicated Prophylaxis - GI - pantoprazole - DVT - SCD/SQH 5000 q12h. Overall impression: Good progress getting fluid off; consistently negative balance. TR may be the limiting factor in our ability to improve her hemodynamic status. will involve Palliative care. overall likely poor prognosis given acute exacerbation of multiple chronic medical problems. Sanket Rodarte MD Feb 17, 2017 09:22
[2017-02-17] MEDS: CARVEDILOL 3.125 MG TAB PO SCH ×2 (10:06→20:30)
[2017-02-17] MEDS: BUMETANIDE INJ 100 ML IV SCH ×2 (10:07→20:32)
--- NOTE | 2017-02-17 10:50 | HHI.NPPN ---
Subjective History of Present Illness 71 year old female with ARF/CHF.Hematoma Left breast Additional Remarks intubated Objective Data Data 02/17/17 02/18/17 19:00 07:00 Intake Total 100 ml Balance 100 ml IV Total 100 ml Vital Signs Date Time Temp Pulse Resp B/P (MAP) Pulse Ox O2 Delivery O2 Flow Rate FiO2 02/17/17 08:00 93 02/17/17 08:00 98.8 93 11 134/61 (85) 100 02/17/17 08:00 35 02/17/17 07:29 100 35 02/17/17 07:00 100 Mechanical Ventilator 35 02/17/17 06:00 99 02/17/17 06:00 35 02/17/17 04:16 100 35 02/17/17 04:00 89 02/17/17 04:00 98.4 89 12 140/60 (86) 100 02/17/17 04:00 35 02/17/17 02:00 93 02/17/17 02:00 35 02/17/17 00:27 100 35 02/17/17 00:00 99.7 102 12 139/71 (93) 100 02/17/17 00:00 35 02/17/17 00:00 102 02/16/17 22:00 93 02/16/17 22:00 35 02/16/17 20:03 100 35 02/16/17 20:00 99.1 100 22 146/65 (92) 100 02/16/17 20:00 35 02/16/17 20:00 100 02/16/17 19:00 100 Mechanical Ventilator 35 02/16/17 18:00 35 02/16/17 18:00 96 02/16/17 16:00 94 02/16/17 16:00 35 02/16/17 16:00 98.3 104 17 133/60 (84) 100 Arterial Line 02/16/17 15:27 100 35 02/16/17 14:00 117 02/16/17 14:00 35 02/16/17 12:00 103 02/16/17 12:00 97.9 103 13 100 121/59 (79) 02/16/17 12:00 35 02/16/17 11:27 100 35 -: 02/17/17 0430 02/17/17 0430 Physical Exam General Appearance: Well Developed Neck Neck Exam: Neck Supple Pulmonary Resp Exam: Decreased Bases Cardiology CV Exam: Arrhythmia Gastrointestinal/Abdomen GI Exam: Soft, Distended Extremeties Extremities Exam: Pitting Edema Assessment/Plan Problem List: (1) HARVEY (acute kidney injury) ICD Codes: N17.9 - Acute kidney failure, unspecified Status: Acute Plan: Patient has congestive heart failure Continues on Bumex drip at 2 mg/hr 6L UOP/ 24 hours . Creatinine 2 -> 1.8 stable . Continue diuresis - on bumex, given diamox. Avoid nephrotoxins follow BMP (2) Hematoma (nontraumatic) of breast ICD Codes: N64.89 - Other specified disorders of breast Plan: Surgically operated on (3) Bilateral lower extremity edema ICD Codes: R60.0 - Bilateral lower extremity edema Status: Acute Plan: Due to congestive heart failure (4) CHF (congestive heart failure) ICD Codes: I50.9 - CHF (congestive heart failure) Status: Chronic Plan: With acute decompensation Lasix ordered after surgery (5) UTI (urinary tract infection) ICD Codes: N39.0 - UTI (urinary tract infection) Status: Acute Plan: Gram-negative Enterobacter cefepime Problem Qualifiers (1) CHF (congestive heart failure): Qualified Codes: I50.33 - Acute on chronic diastolic (congestive) heart failure Laurel Loev MD Feb 17, 2017 10:50
[2017-02-17] MEDS: MODAFINIL 200 MG TAB PO SCH (10:53)
--- NOTE | 2017-02-17 10:58 | RADRPT ---
EXAM DATE/TIME: 02/17/2017 09:50 [place] COMPARISON: CT ABDOMEN & PELVIS W/O CONTRAST, February 03, 2017, 17:35. INDICATIONS : Evaluate for ileus. MEDICAL HISTORY : Myocardial infarction. Congestive heart failure. Hypertension. Left eye cataracts. Dentures, Anti coagulant therapy, COPD, Asthma, Dyspnea. SURGICAL HISTORY : Cardiac cath, internal defibrillator, right lumpectomy. ENCOUNTER: Subsequent ACUITY: 1 day PAIN SCORE: Non-responsive. LOCATION: Abdomen. FINDINGS: 2 supine frontal views of the abdomen demonstrate air distended bowel in a pattern not suggestive of obstruction. Most of the distended bowel is colon but there is likely some small bowel as well. No or ganomegaly is appreciated. Lucency in the left upper quadrant most likely represents gastric air. No concerning calcifications are seen. There is a vascular stent overlying the right pelvis. No acute os seous abnormality is identified. CONCLUSION: Distended small and large bowel in a pattern not typical for small bowel obstruction. It could repres ent ileus. Consider imaging followup to document improvement. Gregory Bob MD on February 17, 2017 at 10:38 Board Certified Radiologist. This report was verified electronically.
[2017-02-17] MEDS ORDERED: EPOPROSTENOL NEB SOLUTION 20 NG/KG/MIN 100 ML NEB SCH ×2 (11:00)
[2017-02-17] MEDS: POTASSIUM CHLOR 40 MEQ PREMIX 100 ML IV PRN (13:00)
[2017-02-17] MEDS: DEXTROSE 10% INJ 1,000 ML IV SCH (13:04)
[2017-02-17] MEDS ORDERED: SODIUM PHOSPHATE INJ 30 MMOL in SODIUM CHLOR 0.9% 250 ML INJ 240 ML IV PRN (13:45)
[2017-02-17] MEDS ORDERED: POTASSIUM PHOSPHATE MONOBASIC 500 MG TAB PO PRN (13:45)
[2017-02-17] MEDS ORDERED: POTASSIUM PHOSPHATE MONOBASIC 500 MG TAB PO/TUBE PRN (13:45)
[2017-02-17] MEDS ORDERED: POTASSIUM CHLOR 20 MEQ PREMIX 100 ML IV PRN ×2 (13:45)
[2017-02-17] MEDS ORDERED: MAGNESIUM OXIDE 400 MG TAB PO PRN (13:45)
[2017-02-17] MEDS ORDERED: POTASSIUM PHOSPHATE INJ 30 MMOL in SODIUM CHLOR 0.9% 250 ML INJ 250 ML IV PRN (13:45)
[2017-02-17] MEDS ORDERED: MAGNESIUM SULFATE INJ 2 GM in SODIUM CHLORIDE 0.9% INJ 96 ML IV PRN (13:45)
[2017-02-17] MEDS ORDERED: MAGNESIUM SULFATE INJ 4 GM in SODIUM CHLORIDE 0.9% INJ 92 ML IV PRN (13:45)
[2017-02-17] MEDS ORDERED: MAGNESIUM CITRATE SOLN 300 ML BTL PO ONE (15:00)
[2017-02-17] MEDS ORDERED: METHYLNALTREXONE BROMIDE 12 MG/0.6 ML VIAL SQ ONE (15:00)
[2017-02-18] VITALS (18 sets, daily range): BP systolic 131–166; BP diastolic 60–77; PULSE 76–98; RESP 12–20; TEMP 97.8–98.8; O2SAT 100
[2017-02-18] MEDS: RESP: ALBUTEROL 2.5 MG/IPRATROPIUM 0.5 MG NEB (SCH) INH ×6 (00:41→20:15)
[2017-02-18] MEDS: ALBUMIN 25% INJ 100 ML IV SCH ×3 (03:51→18:18)
[2017-02-18] MEDS: fentaNYL DRIP 250 ML IV PRN ×2 (03:53→20:00)
[2017-02-18] MEDS: INSULIN ASPART SUPPLEMENTAL SCALE SQ SCH ×4 (06:00→17:29)
[2017-02-18 06:09] LABS: HEMATOCRIT 29.3 % (35.0-46.0); MEAN CELL VOLUME 86.5 FL (80.0-100.0); MEAN CORPUSCULAR HEMOGLOBIN 27.6 PG (27.0-34.0); MEAN CORPUSCULAR HGB CONC 31.9 % (32.0-36.0); PLATELET COUNT 219 TH/MM3 (150-450); RED BLOOD COUNT 3.39 MIL/MM3 (4.00-5.30); RED CELL DISTRIBUTION WIDTH 22.2 % (11.6-17.2); WHITE BLOOD COUNT 7.2 TH/MM3 (4.0-11.0)
[2017-02-18 06:11] LABS: REVIEW FLAG FINAL
[2017-02-18] MEDS: METOCLOPRAMIDE HCL 10 MG/2 ML VIAL IV PUSH SCH ×3 (06:17→22:05)
[2017-02-18] MEDS: SILDENAFIL CITRATE 20 MG TAB PO SCH ×3 (06:18→22:06)
[2017-02-18 06:47] LABS: POTASSIUM 2.9 MEQ/L (3.5-5.1)
[2017-02-18] MEDS: BUMETANIDE INJ 100 ML IV SCH ×2 (07:35→20:00)
[2017-02-18] MEDS: CHLORHEXIDINE 0.12% (ORAL KIT) 15 ML CUP MT SCH ×2 (08:00→20:00)
[2017-02-18] MEDS: ARTIFICIAL TEARS OPTH SOLN 15 ML BTL EACH EYE SCH ×3 (08:32→18:00)
[2017-02-18] MEDS: SODIUM CHLORIDE 0.9% FLUSH 10 ML FLUSH IV FLUSH SCH ×2 (08:32→20:18)
[2017-02-18] MEDS: FERROUS SULFATE 325 MG (65 MG ELEMENTAL IRON) TAB PO SCH ×2 (08:32→20:19)
[2017-02-18] MEDS: CARVEDILOL 3.125 MG TAB PO SCH ×2 (08:33→20:18)
[2017-02-18] MEDS: POLYETHYLENE GLYCOL 17 GM PKG PO SCH ×2 (08:33→20:19)
[2017-02-18] MEDS: LACTULOSE SYRUP 20 GM/30 ML CUP PO SCH ×4 (08:33→20:19)
[2017-02-18] MEDS: DOCUSATE SODIUM 50 MG/SENNA 8.6 MG TAB PO SCH ×2 (08:33→20:18)
[2017-02-18] MEDS: MAGNESIUM HYDROXIDE SUSP 30 ML CUP PO SCH ×2 (08:33→20:19)
[2017-02-18] MEDS: AMIODARONE 200 MG TAB PO SCH (08:33)
[2017-02-18] MEDS: HEPARIN SODIUM - SQ 10,000 UNITS/ML VIAL SQ SCH ×2 (08:33→20:19)
[2017-02-18] MEDS: SENNOSIDES 8.6 MG TAB PO SCH ×2 (08:33→20:36)
[2017-02-18] MEDS: MODAFINIL 200 MG TAB PO SCH (08:33)
[2017-02-18] MEDS: AMANTADINE HCL SOLN 100 MG/10 ML UDC PO SCH ×2 (08:33→20:19)
[2017-02-18] MEDS: PANTOPRAZOLE SODIUM 40 MG VIAL IV PUSH SCH (08:34)
[2017-02-18] MEDS: BISACODYL 10 MG SUPP RECTAL SCH (08:35)
[2017-02-18] MEDS: POTASSIUM CHLOR 40 MEQ PREMIX 100 ML IV PRN ×3 (10:00→22:05)
--- NOTE | 2017-02-18 10:26 | PD.CONS ---
Consult Service Palliative Care Consult Requested By Dr. Rodarte . Primary Care Physician Emily De La Cruz MD . Reason for Consultation a. To assist with evaluation and management of symptoms including:dyspnea, debility b. To assist medical decision maker(s) with: better understanding of current medical conditions; weighing benefits/burdens of medical treatment options; making medical treatment decisions. HPI History of Present Illness Patient is a 71 year old female with a past medical history significant for CHF , chronic atrial fibrillation anticoagulated on Coumadin, COPD on home oxygen, HTN, and diabetes mellitus who presented to the ED after being evaluated by Dr. Feliciano in the office on 02/04/17 for a erythematous, edematous, left breast where her AICD was recently removed secondary to infection with endocarditis. Upon presentation patient complained of shortness of breath, abdominal distention, lower extremity edema, and a 50 pound weight gain over the past month. The patient presented to the ED on 11/28/16 for left breast pain and swelling, at that time she was discharged from the emergency department with a prescription for clindamycin. The patient returned to ED on 12/10/16 and was hospitalized until 12/27/16 for severe sepsis and left breast cellulitis, during that hospitalization the patient was found to have blood cultures positive for MSSA, underwent a AICD and lead extraction on 12/18/16, was found to iron deficiency anemia, and acute kidney injury. The patient was discharged home with home oxygen and a LifeVest. * ED workup for current hospitalization included the following: T:97.8, HR:89, RR:14, BP:182/85, SPO2:97 on 3L NC. Majority of laboratory data was unremarkable at presentation, significant laboratory data: Hb.7, Hct:30.5, BNP:2847, Albumin:2.8. ECG: Sinus rhythm. Breast U/S: Complex cystic lesion measuring up to 11.8cm. This could represent noninfected or infected fluid collection. Given the complex internal architecture, percutaneous drainage would likely not be successful. Abdomen/Pelvis CT: CT findings characteristic of right sided heart insufficiency with diffuse but stable anasarca as well as ascites, bilateral pleural effusions improved from previous CT, heart size remains prominent. Chest CXR: Marked cardiomegaly, left basilar consolidation/ effusion. Patient admitted for CHF exacerbation, anasarca, and breast edema under the care of the hospitalist group. * 02/04/17 ID consulted and evaluated patient, no antimicrobial coverage ordered as the patient just completed a course of IV antibiotics and presented with no S /S of infection. Antibiotics to be initiated if there ant S/S of infection, fever, leukocytosis, or positive cultures. * 02/07/17: Cardiology consulted, for heart failure and edematous device pocket. Adjustments made to medications, lisinopril and potassium discontinued, Entresto and Aldactone added. * 02/07/17: Cardiothoracic surgery reconsulted to evaluate left chest hematoma, 02/10/17: patient taken to the OR for I&D of left breast hematoma, 600mL fluid drained from chest wall/left breast. * 02/10/17: Nephrology consulted for evaluation of ARF and diuresis recommendations. Critical care management also consulted due to respiratory compromise post operatively,patient originally requiring respiratory support via BiPAP, however she became unresponsive, hypotensive likely secondary to cardiogenic/septic shock, and was subsequently intubated, placed on vasopressors. * Patient continued to have a complicated ICU stay over the following week secondary to fluid volume overload, CHF, respiratory failure, ongoing renal failure, liver failure, encephalopathy, and adynamic ileus. Patient seen and examined in room, granddaughter at bedside. Patient remains intubated and mechanically ventilated on APRV, appears to be resting fairly comfortably on fentanyl drip, . Patient is lethargic, opens eyes spontaneously, follows some simple one step commands. Palliative Care was consulted to assist with symptom management and to discuss with the patient/family the benefits and burdens of his current illnesses and the options regarding future care. Function/Cognitive Trajectory Patient has had a long standing history of cardiomyopathy, congestive heart failure, and COPD requiring home oxygen. Prior to October of this patient was living at home and was independent of ADLs, utilizing a front wheeled walker for ambulation. Patient is now been hospitalized three times since November of this secondary to AICD infection, endocarditis, severe sepsis, and congestive heart failure. . Review of Systems ROS Limitations: Clinical Condition, Intubated (ROS obtained from review of EMR and clinical assessment) Constitutional: COMPLAINS OF: Weight gain (reported 50 pound weight gain in the past 30 days upon admission), Generalized weakness Respiratory: COMPLAINS OF: Shortness of breath Cardiovascular: COMPLAINS OF: Lower Extremity Edema Integumentary: COMPLAINS OF: Breast skin changes (Breast erythema and edema) Psychiatric: COMPLAINS OF: Confusion Past Family Social History Coded Allergies: penicillin G (Unverified Allergy, Severe, rash, 12/31/16) benazepril (Unverified Allergy, Mild, 12/31/16) HUMBLE inhibitor angioedema, swelling of the face lips and anterior tongue captopril (Unverified Allergy, Mild, 12/31/16) HUMBLE inhibitor angioedema, swelling of the face lips and anterior tongue enalaprilat (Unverified Allergy, Mild, 12/31/16) HUMBLE inhibitor angioedema, swelling of the face lips and anterior tongue fosinopril (Unverified Allergy, Mild, 12/31/16) HUMBLE inhibitor angioedema, swelling of the face lips and anterior tongue lisinopril (Unverified Allergy, Mild, 12/31/16) HUMBLE inhibitor angioedema, swelling of the face lips and anterior tongue quinapril (Unverified Allergy, Mild, 12/31/16) HUMBLE inhibitor angioedema, swelling of the face lips and anterior tongue Uncoded Allergies: NON COMPATIBLE PACEMAKER (Adverse Reaction, Severe, MRI PRECAUTION / PACEMAKER, 11/03/14) MRI PRECAUTION. PACEMAKER Past Medical History Diabetes mellitus Hypertension Congestive heart failure Coronary artery disease status post cardiac stents placed Atrial fibrillation on chronic anticoagulation on Coumadin COPD on home oxygen . Past Surgical History Right breast lumpectomy Hysterectomy Appendectomy AICD placement with subsequent removal and laser lead extraction due to infection Cholecystectomy . Reported Medications Reported Meds & Active Scripts Active Ferrous Sulfate 325 Mg (65 Mg Iron) Tablet 325 Mg PO BID Bumetanide 2 Mg Tab 2 Mg PO DAILY K-Tab (Potassium Chloride) 10 Meq Tab 10 Meq PO BID Epinephrine Inj 1 Mg/Ml (1 Ml) Inj 0.3 Mg IV PUSH ONCE PRN Oxygen (O2) (Miscellaneous Medication) Inha Liter JENNIFER.CANULA CONTINUOUS Oxygen Concentrator Portable Gaseous 2 L/min via Nasal Canula Continuous For 99 months Defibrillator Jacket (Device) 1 Ea Device Ea EXTERNAL ONCE Energy = 150 Joules; VT Threshold = 150 BPM; VF Threshold = 200 BPM Use up to 90 days only Reported Lantus Inj (Insulin Glargine) 1,000 Unit/10 Ml Vial 27 Units SQ HS PRN Warfarin 4 Mg Tab 4 Mg PO DAILY [place] (Hydrocodone-Acetaminophen) 5-325 mg Tab 1 Tab PO BID PRN Enalapril (Enalapril Maleate) 10 Mg Tab 10 Mg PO BID Metoprolol Succinate ER 24 HR (Metoprolol Succinate) 50 Mg Tab 50 Mg PO DAILY Amlodipine (Amlodipine Besylate) 5 Mg Tab 5 Mg PO DAILY Amiodarone (Amiodarone HCl) 200 Mg Tab 200 Mg PO DAILY . Current Medications Medications (Trade) Dose Ordered Sig/Juan Route Start Time Stop Time Status Last Admin (Narcan Inj) 0.4 mg UNSCH PRN IV PUSH 02/03/17 21:30 (Cordarone) 200 mg DAILY PO 02/04/17 09:00 02/18/17 08:33 (Norvasc) 5 mg DAILY PO 02/04/17 09:00 Future Hold 02/10/17 09:48 (Ferrous Sulfate) 325 mg BID PO 02/04/17 09:00 02/18/17 08:32 (Levemir Inj) 27 units HS PRN SQ 02/04/17 04:45 Future Hold (Toprol Xl) 50 mg DAILY PO 02/04/17 09:00 Future Hold 02/10/17 09:44 (Glucagon Inj) 1 mg UNSCH PRN OTHER 02/04/17 04:30 (Entresto 49-51 Mg) 1 tab BID PO 02/08/17 21:00 Future Hold 02/10/17 09:56 (Peridex 0.12% Liq) 15 ml BID@08,20 MT 02/11/17 08:00 02/18/17 08:00 Propofol 100 ml @ 2.703 mls/ hr TITRATE PRN IV 02/10/17 21:00 02/12/17 13:34 Fentanyl Citrate 250 ml @ 5 mls/hr TITRATE PRN IV 02/10/17 21:00 02/18/17 03:53 (NovoLOG SUPPLEMENTAL SCALE) 1 Q6HR SQ 02/11/17 00:00 (NS Flush) 2 ml UNSCH PRN IV FLUSH 02/10/17 21:15 (NS Flush) 2 ml BID IV FLUSH 02/11/17 09:00 02/18/17 08:32 (Tylenol) 650 mg Q6H PRN PO 02/10/17 21:15 (Protonix Inj) 40 mg DAILY IV PUSH 02/11/17 09:00 02/18/17 08:34 (Tears Naturale Opth Soln) 1 drop TID EACH EYE 02/11/17 09:00 02/18/17 08:32 (Zofran Inj) 4 mg Q6H PRN IV PUSH 02/10/17 21:15 02/14/17 10:52 (Albuterol Neb) 2.5 mg Q2HR NEB PRN INH 02/10/17 21:15 Miscellaneous Information 1 [id number] XX 02/10/17 21:15 02/10/17 21:36 (Chlorhexidine 2% Cloth) Taper DAILY@04 TOP 02/11/17 04:00 02/07/18 03:59 (Chlorhexidine 2% Cloth) 3 pack UNSCH PRN TOP 02/10/17 21:15 (Jasmine-Colace) 1 tab BID PO 02/11/17 09:00 02/18/17 08:33 (Brethine Inj) 1 mg UNSCH PRN SQ 02/11/17 03:15 Albumin Human 100 ml @ 200 mls/hr Q8H IV 02/11/17 11:00 02/18/17 03:51 (Lactulose Liq) 30 ml QID PO 02/11/17 13:00 02/18/17 08:33 Bumetanide 100 ml @ 8 mls/hr [id number] IV 02/11/17 17:00 02/18/17 07:35 Dextrose 1,000 ml @ 42 mls/hr [id number] IV 02/11/17 17:00 02/17/17 13:04 (Miralax) 17 gm BID PO 02/12/17 09:30 02/18/17 08:33 (Heparin Inj) 5,000 units Q12HR SQ 02/13/17 09:00 02/18/17 08:33 (Dulcolax Supp) 10 mg DAILY RECTAL 02/14/17 12:00 02/18/17 08:35 (Milk Of Magnesia Liq) 30 ml Q12HR PO 02/14/17 12:15 02/18/17 08:33 (Senokot) 17.2 mg Q12HR PO 02/14/17 12:15 02/18/17 08:33 (Reglan Inj) 5 mg Q8HR IV PUSH 02/15/17 14:00 02/18/17 06:17 (Revatio) 20 mg Q8HR PO 02/16/17 13:00 02/18/17 06:18 (Symmetrel Liq) 100 mg BID PO 02/16/17 11:45 02/18/17 08:33 (Diamox Inj) 500 mg Q8H IV PUSH 02/16/17 12:00 02/18/17 03:51 (Provigil) 200 mg DAILY PO 02/17/17 09:15 02/18/17 08:33 (Coreg) 3.125 mg Q12HR PO 02/17/17 09:30 02/18/17 08:33 (Duoneb Neb) 1 ampule Q4HR NEB INH 02/17/17 16:00 02/18/17 08:27 (Mag-Ox) 800 mg UNSCH PRN PO 02/17/17 13:45 Magnesium Sulfate 4 gm/Sodium Chloride 100 ml @ 50 mls/hr UNSCH PRN IV 02/17/17 13:45 Magnesium Sulfate 2 gm/Sodium Chloride 100 ml @ 50 mls/hr UNSCH PRN IV 02/17/17 13:45 Potassium Chloride 100 ml @ 50 mls/hr Q2H PRN IV 02/17/17 13:45 Potassium Chloride 100 ml @ 50 mls/hr Q2H PRN IV 02/17/17 13:45 Potassium Chloride 100 ml @ 50 mls/hr Q2H PRN IV 02/17/17 13:45 Potassium Chloride 100 ml @ 25 mls/hr UNSCH PRN IV 02/17/17 13:45 02/17/17 13:00 (K-Phos) 2,000 mg Q4H PRN PO 02/17/17 13:45 (K-Phos) 2,000 mg UNSCH PRN PO/TUBE 02/17/17 13:45 Potassium Phosphate 30 mmol/ Sodium Chloride 260 ml @ 42 mls/hr UNSCH PRN IV 02/17/17 13:45 Sodium Phosphate 30 mmol/Sodium Chloride 250 ml @ 42 mls/hr UNSCH PRN IV 02/17/17 13:45 . Family History Mother with cardiac disease. Father with diabetes. Substance Use Tobacco: Smoked 1 pack per day for greater than 40 years, reportedly quit two months ago. Alcohol: Occasionally, socially. Prescription med abuse: None reported. Illicits: None reported. . Psychosocial History Patient is originally from [place], she is , she had five children, only two daughters still living. Spiritual/Cultural Factors Denominational. . Living Will: Never completed Health Care Surrogate: Never completed Durable Power of Middleware Developer: Never completed Ethical and Legal Issues None known. . Physical Exam Vital Signs Date Time Temp Pulse Resp B/P (MAP) Pulse Ox O2 Delivery O2 Flow Rate FiO2 02/18/17 08:00 35 02/18/17 08:00 97.9 98 18 166/77 (106) 100 02/18/17 08:00 94 02/18/17 07:59 100 35 02/18/17 07:00 100 Mechanical Ventilator 35 02/18/17 06:00 87 02/18/17 06:00 35 02/18/17 04:18 100 35 02/18/17 04:00 83 02/18/17 04:00 98.7 82 12 156/76 (102) 100 02/18/17 04:00 35 02/18/17 02:00 83 02/18/17 02:00 35 02/18/17 00:42 100 35 02/18/17 00:00 90 02/18/17 00:00 98.8 84 12 137/75 (95) 100 02/18/17 00:00 35 02/17/17 22:00 35 02/17/17 22:00 85 02/17/17 20:00 98.8 102 12 152/71 (98) 100 02/17/17 20:00 91 02/17/17 20:00 35 02/17/17 19:00 100 Mechanical Ventilator 35 02/17/17 18:00 99 02/17/17 18:00 35 02/17/17 16:00 35 02/17/17 16:00 98.7 98 12 137/92 (107) 100 02/17/17 16:00 98 02/17/17 15:21 100 35 02/17/17 14:00 35 02/17/17 14:00 92 02/17/17 12:12 100 35 02/17/17 12:00 35 02/17/17 12:00 98.5 92 12 144/68 (93) 100 02/17/17 12:00 92 11/20/17 10:00 93 02/17/17 10:00 35 . 02/18/17 02/19/17 19:00 07:00 Intake Total 13 ml Balance 13 ml IV Total 13 ml Exam CONSTITUTIONAL/GENERAL: This is a critically ill elderly appearing female patient, intubated, and mechanically ventilated. TUBES/LINES/DRAINS: SKIN: No jaundice, rashes, or lesions. Ecchymoses on upper extremities. No wounds seen anteriorly. Skin temperature appropriate. Not diaphoretic. HEAD: Atraumatic. Normocephalic. ENT: Unable to assess secondary to clinical condition. Nose without bleeding or purulent drainage. NECK: Trachea midline. CARDIOVASCULAR: Regular rate and rhythm without murmurs, gallops, or rubs. Peripheral pulses symmetric. RESPIRATORY/CHEST: Symmetric, mechanically ventilate. Course crackles throughout. Breath sounds equal bilaterally. GASTROINTESTINAL: Abdomen firm, distended. Bowel sounds hypoactive. GENITOURINARY: Wolff catheter in place draining clear yellow urine. MUSCULOSKELETAL: Extremities without clubbing, cyanosis. BLE edema 2+. NEUROLOGICAL:Lethargic.Opens eyes spontaneously. Follows simple one step commands. PSYCHIATRIC: Unable to assess secondary to clinical condition. . Diagnostic Tests Laboratory Laboratory Tests Test 02/16/17 04:50 02/16/17 04:55 02/17/17 04:30 02/18/17 05:30 Prothrombin Time 18.1 SEC (9.8-11.6) Prothromb Time International Ratio 1.6 RATIO Activated Partial Thromboplast Time 50.3 SEC (24.3-30.1) White Blood Count 7.8 TH/MM3 (4.0-11.0) 8.6 TH/MM3 (4.0-11.0) 7.2 TH/MM3 (4.0-11.0) Red Blood Count 3.39 MIL/MM3 (4.00-5.30) 3.28 MIL/MM3 (4.00-5.30) 3.39 MIL/MM3 (4.00-5.30) Hemoglobin 9.3 GM/DL (11.6-15.3) 9.0 GM/DL (11.6-15.3) 9.4 GM/DL (11.6-15.3) Hematocrit 29.0 % (35.0-46.0) 28.3 % (35.0-46.0) 29.3 % (35.0-46.0) Mean Corpuscular Volume 85.6 FL (80.0-100.0) 86.5 FL (80.0-100.0) 86.5 FL (80.0-100.0) Mean Corpuscular Hemoglobin 27.3 PG (27.0-34.0) 27.4 PG (27.0-34.0) 27.6 PG (27.0-34.0) Mean Corpuscular Hemoglobin Concent 31.9 % (32.0-36.0) 31.6 % (32.0-36.0) 31.9 % (32.0-36.0) Red Cell Distribution Width 22.5 % (11.6-17.2) 22.3 % (11.6-17.2) 22.2 % (11.6-17.2) Platelet Count 226 TH/MM3 (150-450) 219 TH/MM3 (150-450) 219 TH/MM3 (150-450) Mean Platelet Volume 6.6 FL (7.0-11.0) 6.8 FL (7.0-11.0) 7.1 FL (7.0-11.0) Blood Urea Nitrogen 31 MG/DL (7-18) 30 MG/DL (7-18) 31 MG/DL (7-18) Creatinine 1.87 MG/DL (0.50-1.00) 1.89 MG/DL (0.50-1.00) 1.86 MG/DL (0.50-1.00) Random Glucose 89 MG/DL (74-106) 100 MG/DL (74-106) 95 MG/DL (74-106) Total Protein 7.8 GM/DL (6.4-8.2) Albumin 4.2 GM/DL (3.4-5.0) Calcium Level 8.7 MG/DL (8.5-10.1) 8.8 MG/DL (8.5-10.1) 9.4 MG/DL (8.5-10.1) Alkaline Phosphatase 66 U/L (45-117) Aspartate Amino Transf (AST/SGOT) 12 U/L (15-37) Alanine Aminotransferase (ALT/SGPT) 9 U/L (10-53) Total Bilirubin 2.3 MG/DL (0.2-1.0) Direct Bilirubin 1.4 MG/DL (0.0-0.2) Sodium Level 136 MEQ/L (136-145) 137 MEQ/L (136-145) 135 MEQ/L (136-145) Potassium Level 3.0 MEQ/L (3.5-5.1) 3.5 MEQ/L (3.5-5.1) 2.9 MEQ/L (3.5-5.1) Chloride Level 96 MEQ/L (98-107) 97 MEQ/L (98-107) 94 MEQ/L (98-107) Carbon Dioxide Level 31.4 MEQ/L (21.0-32.0) 32.0 MEQ/L (21.0-32.0) 33.0 MEQ/L (21.0-32.0) Anion Gap 9 MEQ/L (5-15) 8 MEQ/L (5-15) 8 MEQ/L (5-15) Estimat Glomerular Filtration Rate 32 ML/MIN (>89) 32 ML/MIN (>89) 32 ML/MIN (>89) Indirect Bilirubin 0.9 MG/DL (0.0-0.8) Ammonia 34 MCMOL/L (11-32) B-Type Natriuretic Peptide 2924 PG/ML (0-100) . Result Diagram: 02/18/17 0530 02/18/17 0530 Imaging Last 72 hours Impressions Abdomen X-Ray 02/17/17 0000 Signed Impressions: Service Date/Time: Friday, February 17, 2017 09:50 - CONCLUSION: Distended small and large bowel in a pattern not typical for small bowel obstruction. It could represent ileus. Consider imaging followup to document improvement. Gregory Bob MD Procedures 02/10/17: I&D left breast 02/10/17:Intubated Patient/Family Conference Present at Family Conference: Dr. Rodarte, Suyapa Talbot, FOOD AND BEVERAGE OUTLETS MANAGER. Patient's daughters, brother, multiple grandchildren and other relatives as well as patient's via telephone. Issues Discussed: The following items were discussed by Dr. Rodarte during family meeting: * Patients general health, functional status, and cognitive changes in the months leading up to the current hospitalization * Patient/family understanding of the current medical problems * Patient/family understanding of prognosis * Patients goals of care as best understood from conversations and/or values * Current medical treatment options and benefits/burdens of those options * Likely scenarios comparing ongoing aggressive care with a transition to comfort measures only * Code status * Palliative care contact information provided Assessment and Plan Disease Oriented Problem List: (1) CHF (congestive heart failure) (2) Respiratory failure with hypercapnia (3) Anasarca (4) AICD generator infection Symptom Scale: (1) Debility (2) Dyspnea Pertinent Non-Medical Issues Psychosocial: Patient is originally from [place], she is , she had five children, only two daughters still living. Spiritual: Denominational. Legal: None known. Ethical issues impacting care: None known. Important Contacts Damaris Dailey () [phone] Desi Burrell (daughter) [phone] . Prognosis Patient has a long standing history of cardiomyopathy, CHF, COPD, now with respiratory failure, ARF, liver failure, and adynamic ileus. Patient is critically ill, intubated on mechanical ventilation in multiorgan failure. Due to patient's advanced age, multiple comorbidities, and debilitated status she is at an ongoing risk for complications/setbacks. Code Status: No Code Plan Plan * Legal decision maker: Patient is currently not capacitated to make informed medical decisions independently. It is unclear if she will regain capacity. Patient does not have any previous written advanced directives, per [place] statutes in the absence of written advanced directives health care decision making would fall to her next of kin which is her . * Goals: Aggressive short of cardiopulmonary resuscitation for the time being. Patient's daughters and family wish to discuss goals of care/aggressive versus comfort oriented goals further with the patient's . Plan to reconvene tomorrow afternoon on a decision of whether to move forward with trach/PEG. * CODE STATUS: DNR. Dr. Rodarte discussed the risks and limitations of CPR given the patient's overall poor prognosis during family meeting. Patient's with the support of the remainder of the family have opted to change code status to DNR. * SYMPTOMS: --Dyspnea: Multifactorial, secondary to CHF, COPD, fluid volume overload, respiratory failure, etc. Patient is currently intubated and mechanically ventilated. No recommendations at this time. --Debility: Patient has had multiple complicated hospital stays in recent months in addition to multiple comorbidities already present contributing to debilitated status. Patient is currently critically ill and unable to participate in any PT/OT. No recommendations at this time. * Palliative care will continue to follow during hospital course as condition evolves, to assist patient/decision-maker with understanding of medical conditions, weighing benefits/burdens of treatment options, for clarification of goals of treatment. Additionally will assist with any symptoms of palliative concern Thank you for the opportunity to participate in the care of Ms. Champion. Attestation To help prompt me to consider important information that might be impacting today's encounter and assessment, information from prior notes written by myself or my colleagues may have been "brought forward" into today's note. My signature on this note, however, is an attestation that I personally performed the exam, history, and/or decision-making noted today, and, unless otherwise indicated, the interactions with patient, family, and staff as well as the review of records all occurred today. I also attest that the listed assessment and stated plan reflect my best clinical judgment today based on the combination of historical information, prior notes, and today's exam/ interactions. When time spent is documented, it refers only to time spent today by the signer, or if indicated, combined time spent today by collaborating physician/nurse practitioner. Sunshine Cagle Feb 18, 2017 10:25
[2017-02-18] MEDS: DEXTROSE 10% INJ 1,000 ML IV SCH (14:52)
--- NOTE | 2017-02-18 18:53 | HHI.NPPN ---
Subjective History of Present Illness 71 year old female with ARF/CHF.Hematoma Left breast Additional Remarks intubated Objective Data Data 02/18/17 02/19/17 19:00 07:00 Intake Total 781 ml Output Total 900 ml Balance -119 ml Intake Oral 0 ml IV Total 631 ml Tube Feeding 0 ml Other 150 ml Output Urine Total 900 ml # Bowel Movements 0 Vital Signs Date Time Temp Pulse Resp B/P (MAP) Pulse Ox O2 Delivery O2 Flow Rate FiO2 02/18/17 18:00 35 02/18/17 18:00 92 02/18/17 16:00 35 02/18/17 16:00 80 02/18/17 16:00 98.7 80 12 131/61 (84) 100 02/18/17 15:53 100 35 02/18/17 14:00 83 02/18/17 14:00 35 02/18/17 12:00 93 02/18/17 12:00 35 02/18/17 12:00 97.8 93 20 145/75 (98) 100 02/18/17 11:04 100 35 02/18/17 10:00 76 02/18/17 10:00 35 02/18/17 08:00 35 02/18/17 08:00 97.9 98 18 166/77 (106) 100 02/18/17 08:00 94 02/18/17 07:59 100 35 02/18/17 07:00 100 Mechanical Ventilator 35 02/18/17 06:00 87 02/18/17 06:00 35 02/18/17 04:18 100 35 02/18/17 04:00 83 02/18/17 04:00 98.7 82 12 156/76 (102) 100 02/18/17 04:00 35 02/18/17 02:00 83 02/18/17 02:00 35 02/18/17 00:42 100 35 02/18/17 00:00 90 02/18/17 00:00 98.8 84 12 137/75 (95) 100 02/18/17 00:00 35 02/17/17 22:00 35 02/17/17 22:00 85 02/17/17 20:00 98.8 102 12 152/71 (98) 100 02/17/17 20:00 91 02/17/17 20:00 35 02/17/17 19:00 100 Mechanical Ventilator 35 -: 02/18/17 0530 02/18/17 0530 Physical Exam General Appearance: Well Developed Neck Neck Exam: Neck Supple Pulmonary Resp Exam: Decreased Bases Cardiology CV Exam: Arrhythmia Gastrointestinal/Abdomen GI Exam: Distended, Bowel Sounds Hypoactive Extremeties Extremities Exam: Pitting Edema Assessment/Plan Problem List: (1) HARVEY (acute kidney injury) ICD Codes: N17.9 - Acute kidney failure, unspecified Status: Acute Plan: Patient has congestive heart failure Continues on Bumex drip at 2 mg/hr Good urine output . Creatinine 2 -> 1.8 stable . Continue diuresis - on bumex, given diamox. Potassium has been replaced She has abdominal distention and ileus Avoid nephrotoxins follow BMP (2) Hematoma (nontraumatic) of breast ICD Codes: N64.89 - Other specified disorders of breast Plan: Surgically operated on (3) Bilateral lower extremity edema ICD Codes: R60.0 - Bilateral lower extremity edema Status: Acute Plan: Due to congestive heart failure (4) CHF (congestive heart failure) ICD Codes: I50.9 - CHF (congestive heart failure) Status: Chronic Plan: With acute decompensation Lasix ordered after surgery (5) UTI (urinary tract infection) ICD Codes: N39.0 - UTI (urinary tract infection) Status: Acute Plan: Gram-negative Enterobacter cefepime Problem Qualifiers (1) CHF (congestive heart failure): Qualified Codes: I50.33 - Acute on chronic diastolic (congestive) heart failure Laurel Love MD Feb 18, 2017 18:53
--- NOTE | 2017-02-18 20:34 | HHI.CCPN ---
Subjective Remarks/Hospital Course Hospital Course: This is a 71-year-old Afro-[place] female. Date of admission 02/04/2017. Past medical history includes diastolic congestive heart failure, COPD, chronic atrial fibrillation, diabetes, hypertension and history of MSSA infection on cefazolin. Patient presents to [facility] initially on 02/04 with left breast swelling. In November/2016, patient was diagnosed with endocarditis and AICD infection. At that time, Pacemaker removed . Since that time she's had increasing swelling in her left breast and currently has an abscess of the location 11.8 cm in size. She also complained of Shortness of breath. This is associated with a self-reported 50 pound weight gain with bilateral lower extremity edema and significant stomach swelling. She also reports shortness of breath. She was treated with cefazolin at home include 01/29/2017. After cessation of treatment, she noted The patient reports a significant increase in her left breast swelling over the past 2-3 days. She states the area is tender to palpation and painful. She does not have a leukocytosis. Breast ultrasound showed a complex cystic lesion measuring up to 11.8 cm in the left breast that could represent a fluid collection or old hematoma. Today in 02/10, patient ID of her left breast by Dr. Joy. 300 crystalloid. EBL 50. Urine output 60. Patient received 40 mg torsemide IV post procedure. Her oxygenation requirements increasing currently on BiPAP. She is currently unresponsive when seen in [facility]. She'll be intubated at the present time Subjective: 02/11: intubated overnight. now on vasopressors with fever. likely mixed cardiogenic/septic shock from a combination of volume overload and breast abscess. Also has significant bilateral pleural effusion, left > right by CXR and bedside ultrasound. significantly up in weight. respiratory failure likely from volume overload, although worsening acute kidney injury and shock complicates picture. 02/12: despite aggressive diuresis increasing to bumex drip, still net + and poor diuresis. may require dialysis if no improvement. remains borderline hypoglycemic. renal function continues to worsen. no BM x 2 days. peak pressures on vent elevated. CT chest yesterday without significant effusions but completely collapsed LLL, likely a large component of atelectasis from severe cardiomegaly, but cannot rule out pna. no meaningful improvements from yesterday. 11/16: much improved diuresis yesterday and now net negative 1.7L/24h. Cr still uptrending, but only slightly. pulmonary compliance also has improved with overnight APRV. discussed care with Dr. Garcia and we both agree that inhaled epoprostenol may be of benefit in assisting with RV function to mitigate severe TR and assist with diuresis and hemodynamics. ammonia up slightly, although now having regular bowel movements. 02/14: good diuresis. Cr plateaued. LFTs and T bili slightly worse. ammonia stable without significant improvements. also had 1 episode of emesis today: tube feeds on hold and NGT to LIWS. 02/15: Heart is shaped like a bowling ball. Gas exchange much improved, continued diuresis. Residual NG aspirate > 500 - will reconnect to LIS, start reglan. Decrease T-high to 4.5, add pressure support 5. Lighten fentanyl. Diarrhea remains problematic. 02/16: blood pressure improved. bnp still uptrending. good diuresis. art line removed for non-functioning. 02/17: still diuresing with > 2L/24h negative balance. Cr still downtrending. bp still stable. tolerated initiation of sildenafil. persists with high gastric residuals. KUB with adynamic ileus. starting to weakly follow commands this morning, but still very somnolent. 02/18: continues to diurese on bumex drip with albumin and diamox. Cr continues to downtrend. bp stable. tolerating sildenafil. ileus persists. no tolerance of gastric tube feeds at all. no following commands this morning. If we look overall clinically a week ago until today, no meaningful improvements: continues to get low tidal volumes, atelectasis, and fails any attempt at SBT quickly and continues to require APRV to maintain adequate lung expansion. cardiac function no better despite 12L diuresis. kidneys are some improved but not significant, and mental status is very poor and metabolic encephalopathy is severe. With this many organs dysfunctional, this is a very poor prognosis. I had a long talk with the family where I expressed my concerns. The and medical decision maker clearly states in front of the whole family and palliative care that he would not want CPR or shocking or anything like that, as this would only prolong suffering, but he is having trouble with the decision to withdraw care, and would like to think about it and give a final decision about palliation vs. trach/peg and aggressive care tomorrow. Objective Vital Signs Date Time Temp Pulse Resp B/P (MAP) Pulse Ox O2 Delivery O2 Flow Rate FiO2 02/18/17 18:00 35 02/18/17 18:00 92 02/18/17 16:00 98.7 12 131/61 (84) 100 02/18/17 07:00 Mechanical Ventilator Intake and Output 02/18/17 02/18/17 02/19/17 08:00 16:00 00:00 Intake Total 258 ml 618 ml 150 ml Output Total 2000 ml 900 ml Balance -1742 ml 618 ml -750 ml Result Diagram: 02/18/17 0530 02/18/17 0530 Imaging Last Impressions Head CT 02/11/17 0000 Signed Impressions: Service Date/Time: Saturday, February 11, 2017 04:32 - CONCLUSION: Normal examination. Tyrone Simmons MD Renal Ultrasound 02/10/17 0000 Signed Impressions: Service Date/Time: Friday, February 10, 2017 23:06 - CONCLUSION: Normal examination. No evidence of obstruction or hydronephrosis.. Tyrone Simmons MD Chest X-Ray 02/10/17 0000 Signed Impressions: Service Date/Time: Friday, February 10, 2017 21:41 - CONCLUSION: 1. ET tube 1 cm from the anai. This can be pulled back 2 cm to be in a better position. 2. Cardiomegaly. Multiple electronic devices are seen over the chest. 3. Diffuse pulmonary consolidations likely representing edema. There is further atelectasis or consolidation the bases and probably bilateral effusions. Gregory Perry MD Breast Ultrasound 02/03/17 0000 Signed Impressions: Service Date/Time: Friday, February 03, 2017 18:49 - CONCLUSION: Complex cystic lesion measuring up to 11.8 cm centered at the 12:00 position left breast. Given the clinical history of recent procedure in this area this could represent a noninfected or infected fluid collection. Given the complex internal architecture, percutaneous drainage will likely not be successful. Once the patient's condition permits, consider outpatient diagnostic mammogram and ultrasound followup. Gregory Bob MD ADDENDUM: Another consideration given the prior CT appearance and current imaging findings is an old hematoma. Gregory Bob MD Abdomen/Pelvis CT 02/03/17 0000 Signed Impressions: Service Date/Time: Friday, February 03, 2017 17:35 - CONCLUSION: 1. CT findings characteristic of right heart insufficiency with diffuse but stable anasarca in the visible soft tissues and leaves of the mesentery as well as a small amount of ascites. Intrahepatic IVC is markedly dilated. 2. Previously identified bilateral pleural effusions are significantly improved with only a small amount of fluid on the left. There is some persistent atelectasis in the left base. 3. Heart size remains prominent. 4. Otherwise stable. Mt Alvarez MD Objective Remarks GENERAL: 71-year-old a female, lying in bed, intubated, sedated, critically ill appearing. SKIN: Warm and dry. No rash HEAD: Atraumatic. Normocephalic. EYES: Pupils equal and round bilaterally reactive. No conjunctival icterus. No injection or drainage. ENT: No nasal bleeding or discharge. Mucous membranes pink and moist. NECK: Trachea midline. large neck circumference prevents accurate assessment of JVD. orotracheally intubated CARDIOVASCULAR: Regular rate and rhythm RESPIRATORY: APRV 26/0, fio2 35%. improved chest wall excursion. THORAX - left breast less indurated than before. LifeVest still in place. GASTROINTESTINAL: Abdomen soft, obese, nondistended. NGT output remains high > 250cc/4h. MUSCULOSKELETAL: Extremities 2+ lower extremity edema. No obvious deformities. NEUROLOGICAL: RASS -3. w/d to pain. does not follow today. off sedation. A/P Assessment and Plan Assessment: 71yF with h/o ICM, prior EF reported at 15%, s/p placement of AICD, recovery of LVEF to 60%, AICD infection s/p lead extraction, now with breast abscess, septic shock, volume overload, acute Systolic CHF exacerbation, acute hypoxic respiratory failure. still very critically ill and unable to measurably improve her organs. given the volume of diuresis we have achieved and no signs of volume depletion yet, this was clearly long-standing CHF exacerbation and would have taken months to get to this degree of volume overload, so clearly she has been declining for some time now. Family to decide tomorrow trach/peg vs. hospice. Per their expressed wishes, I have made the patient DNR and have asked that her LifeVest be removed. Daily plan includes continuing diuresis. continue diamox. continue NPO. Still very much off pathway with little improvements. highly complex with multiple medical problems. unlikely to have favorable outcome. Neuro/Psych: Metabolic Encephalopathy - secondary to co2 retention and sepsis. Hyperammonemia Hypoactive delirium Currently on propofol/fentanyl drips for sedation/analgesia while intubated Goal of RASS -[address] brain 02/10- negative for acute disease. amantadine for improved wakefulness. modafinil for alertness. CV: Acute CHF exacerbation: mixed type, including systolic, diastolic, and valvulopathy from severe tricuspid regurgitation. History arrhythmia/ chronic atrial fibrillation - LifeVest since 11/2016 Hypertension Coronary disease status post stent 3 Moderate to severe TR Acute intravascular volume overload Cor Pulmonale 2-D echocardiogram revealed EF of 60%. Severe TR. PAP 33 mmHg, bedside critical care echo 02/11: moderately depressed LV function. clinically significant TR. hold metoprolol, enalapril, amlodipine for hypotension Previously on bumetanide 2 mg daily with KCl 10 mEq twice a day. continue bumex drip to 2mg/hr. diamox 500mg iv q8h. continue concentrated albumin. Continue amiodarone 200 mg by mouth daily Dr. Feliciano - cardiology and Dr. Garcia, CT surgery following hold spironolactone given renal function. hold Sacibutril/Valsartan 51/49 while on vasopressors. continue sildenafil 20mg po q8hr. carvedilol 3.125 mg po q12h. Resp: Acute hypoxic respiratory failure Compressive atelectasis/consolidation LLL Possible LLL HCAP pneumonia Acute pulmonary edema Severe acute intravascular volume overload COPD - 3 L oxygen dependent APRV 6.4:1, 26/0. PS 5. Ventilator bundle Albuterol/ipratropium aerosols every 4 hours albuterol aerosols every 2 hours. Dyspnea Spontaneous breathing trials daily wean fio2 for goal spo2 > 90% CT chest 02/11: moderate right pleural effusion. densely consolidated LLL. severe cardiomegaly. no drainable effusion which is large enough to prevent pulmonary mechanics. GI: Hyperammonemia Acute protein calorie malnutrition - moderate Acute intravascular volume overload Obesity Constipation Adynamic Ileus Abdominal Distension NGT to LIWS. Pantoprazole for GI prophylaxis Docusate sodium/senna for bowel regimen lactulose qid for elevated ammonia which is likely secondary to early congestive hepatopathy trend daily ammonias. daily BMPs diuresis as above. continue aggressive bowel regimen: - senna/colace - miraLAX BID - lactulose QID - dulcolax supp daily - reglan 5mg iv q8h : Acute Kidney Injury- improving. maintain ellis today. forced diuresis as above kidney injury likely multifactorial and combination of shock and venous congestion from volume overload. lungs and heart function require urgent forced diuresis, despite kidney injury. Endo: Diabetes mellitus Hypoglycemia Will hold insulin detemir 27 units at night. Currently on sliding scale insulin with Novulog low regimen every 6 hours d10w @ 42cc/hr. maintain dextrose source while npo. Renal: Acute kidney injury in the setting of chronic kidney disease stage III - very slowly resolving. Followed by nephrology/by Dr. Love Avoid nephrotoxic drugs Heme: Normocytic anemia Chronic warfarin use Currently holding warfarin 4 mg daily. Repeat CBC and INR daily Does not meet transfusion threshold at this time Currently on iron sulfate 325 mg by mouth twice a day ID: Escherichia coli UTI History of MSSA abscess to left breast Pertinent cultures 02/08 - urine - gram-negative bela 02/04 - blood cultures 2- no growth 02/03 - urine - Escherichia coli Followed by Dr. Tamayo/ID watch off abx. improving. FEN: Replace electrolytes as clinically indicated MSK: Postop day #9 I&D left breast hematoma by Dr. Garcia PT evaluate and treat Access - Utilize peripheral IV. Continue to use right upper extremity single lumen PICC line. Central line if indicated Prophylaxis - GI - pantoprazole - DVT - SCD/SQH 5000 q12h. Overall impression: overall likely poor prognosis given acute exacerbation of multiple chronic medical problems. Sanket Rodarte MD Feb 18, 2017 20:34
[2017-02-19] VITALS (19 sets, daily range): BP systolic 94–131; BP diastolic 50–68; PULSE 79–92; RESP 12–16; TEMP 97.9–99.9; O2SAT 99–100
[2017-02-19] MEDS: RESP: ALBUTEROL 2.5 MG/IPRATROPIUM 0.5 MG NEB (SCH) INH ×7 (00:38→23:16)
[2017-02-19] MEDS: ALBUMIN 25% INJ 100 ML IV SCH ×3 (03:07→18:01)
[2017-02-19] MEDS: CHLORHEXIDINE GLUCONATE 2 % 1 PACK (2 CLOTHS) TOP SCH (04:00)
[2017-02-19] MEDS: SILDENAFIL CITRATE 20 MG TAB PO SCH ×3 (05:53→20:18)
[2017-02-19] MEDS: METOCLOPRAMIDE HCL 10 MG/2 ML VIAL IV PUSH SCH ×3 (05:53→20:14)
[2017-02-19] MEDS: INSULIN ASPART SUPPLEMENTAL SCALE SQ SCH ×4 (06:00→17:44)
[2017-02-19] MEDS: CHLORHEXIDINE 0.12% (ORAL KIT) 15 ML CUP MT SCH ×2 (08:00→20:00)
--- NOTE | 2017-02-19 08:58 | RADRPT ---
EXAM DATE/TIME: 02/19/2017 08:23 [facility] COMPARISON: CHEST SINGLE AP, February 13, 2017, 8:46. INDICATIONS : Shortness of breath. MEDICAL HISTORY : Myocardial infarction. Congestive heart failure. Hypertension. Left eye cataracts. Dentures. Anticoag ulant therapy. COPD. Asthma. Dyspnea. SURGICAL HISTORY : Coronary artery stent. Appendectomy. Hysterectomy. Cardiac stents. Cardiac catheterization. Internal defibrillator. Right lumpectomy. ENCOUNTER: Subsequent ACUITY: 1 week PAIN SCORE: Non-responsive. LOCATION: Bilateral chest FINDINGS: A single view of the chest demonstrates the endotracheal tube, nasogastric tube and right-sided PICC line are in good position. Minimal scarring left midlung zone and right lung base. Heart is slightly enlarged. Osseous structures are intact. CONCLUSION: Tubes and catheter in good position. Minimal bilateral consolidations unchanged . Tyrone Simmons MD on February 19, 2017 at 8:55 Board Certified Radiologist. This report was verified electronically.
[2017-02-19] MEDS: MAGNESIUM HYDROXIDE SUSP 30 ML CUP PO SCH ×2 (09:34→20:14)
[2017-02-19] MEDS: FERROUS SULFATE 325 MG (65 MG ELEMENTAL IRON) TAB PO SCH ×2 (09:34→20:15)
[2017-02-19] MEDS: MODAFINIL 200 MG TAB PO SCH (09:34)
[2017-02-19] MEDS: CARVEDILOL 3.125 MG TAB PO SCH ×2 (09:34→20:15)
[2017-02-19] MEDS: LACTULOSE SYRUP 20 GM/30 ML CUP PO SCH ×4 (09:34→20:14)
[2017-02-19] MEDS: AMIODARONE 200 MG TAB PO SCH (09:34)
[2017-02-19] MEDS: BISACODYL 10 MG SUPP RECTAL SCH (09:34)
[2017-02-19] MEDS: SENNOSIDES 8.6 MG TAB PO SCH ×2 (09:35→20:15)
[2017-02-19] MEDS: DOCUSATE SODIUM 50 MG/SENNA 8.6 MG TAB PO SCH ×2 (09:35→20:15)
[2017-02-19] MEDS: AMANTADINE HCL SOLN 100 MG/10 ML UDC PO SCH ×2 (09:35→20:15)
[2017-02-19] MEDS: PANTOPRAZOLE SODIUM 40 MG VIAL IV PUSH SCH (09:35)
[2017-02-19] MEDS: HEPARIN SODIUM - SQ 10,000 UNITS/ML VIAL SQ SCH ×2 (09:35→20:15)
[2017-02-19] MEDS: ARTIFICIAL TEARS OPTH SOLN 15 ML BTL EACH EYE SCH ×3 (09:36→17:41)
[2017-02-19] MEDS: POLYETHYLENE GLYCOL 17 GM PKG PO SCH ×2 (09:36→20:15)
[2017-02-19] MEDS: SODIUM CHLORIDE 0.9% FLUSH 10 ML FLUSH IV FLUSH SCH ×2 (09:36→20:15)
[2017-02-19] MEDS: BUMETANIDE INJ 100 ML IV SCH ×2 (09:37→19:02)
--- NOTE | 2017-02-19 10:21 | HHI.CCPN ---
Subjective Remarks/Hospital Course Hospital Course: This is a 71-year-old Afro-[place] female. Date of admission 02/04/2017. Past medical history includes diastolic congestive heart failure, COPD, chronic atrial fibrillation, diabetes, hypertension and history of MSSA infection on cefazolin. Patient presents to [facility] initially on 02/04 with left breast swelling. In November/2016, patient was diagnosed with endocarditis and AICD infection. At that time, Pacemaker removed . Since that time she's had increasing swelling in her left breast and currently has an abscess of the location 11.8 cm in size. She also complained of Shortness of breath. This is associated with a self-reported 50 pound weight gain with bilateral lower extremity edema and significant stomach swelling. She also reports shortness of breath. She was treated with cefazolin at home include 01/29/2017. After cessation of treatment, she noted The patient reports a significant increase in her left breast swelling over the past 2-3 days. She states the area is tender to palpation and painful. She does not have a leukocytosis. Breast ultrasound showed a complex cystic lesion measuring up to 11.8 cm in the left breast that could represent a fluid collection or old hematoma. Today in 02/10, patient ID of her left breast by Dr. Joy. 300 crystalloid. EBL 50. Urine output 60. Patient received 40 mg torsemide IV post procedure. Her oxygenation requirements increasing currently on BiPAP. She is currently unresponsive when seen in [facility]. She'll be intubated at the present time Subjective: 02/11: intubated overnight. now on vasopressors with fever. likely mixed cardiogenic/septic shock from a combination of volume overload and breast abscess. Also has significant bilateral pleural effusion, left > right by CXR and bedside ultrasound. significantly up in weight. respiratory failure likely from volume overload, although worsening acute kidney injury and shock complicates picture. 02/12: despite aggressive diuresis increasing to bumex drip, still net + and poor diuresis. may require dialysis if no improvement. remains borderline hypoglycemic. renal function continues to worsen. no BM x 2 days. peak pressures on vent elevated. CT chest yesterday without significant effusions but completely collapsed LLL, likely a large component of atelectasis from severe cardiomegaly, but cannot rule out pna. no meaningful improvements from yesterday. 11/16: much improved diuresis yesterday and now net negative 1.7L/24h. Cr still uptrending, but only slightly. pulmonary compliance also has improved with overnight APRV. discussed care with Dr. Garcia and we both agree that inhaled epoprostenol may be of benefit in assisting with RV function to mitigate severe TR and assist with diuresis and hemodynamics. ammonia up slightly, although now having regular bowel movements. 02/14: good diuresis. Cr plateaued. LFTs and T bili slightly worse. ammonia stable without significant improvements. also had 1 episode of emesis today: tube feeds on hold and NGT to LIWS. 02/15: Heart is shaped like a bowling ball. Gas exchange much improved, continued diuresis. Residual NG aspirate > 500 - will reconnect to LIS, start reglan. Decrease T-high to 4.5, add pressure support 5. Lighten fentanyl. Diarrhea remains problematic. 02/16: blood pressure improved. bnp still uptrending. good diuresis. art line removed for non-functioning. 02/17: still diuresing with > 2L/24h negative balance. Cr still downtrending. bp still stable. tolerated initiation of sildenafil. persists with high gastric residuals. KUB with adynamic ileus. starting to weakly follow commands this morning, but still very somnolent. 02/18: continues to diurese on bumex drip with albumin and diamox. Cr continues to downtrend. bp stable. tolerating sildenafil. ileus persists. no tolerance of gastric tube feeds at all. no following commands this morning. If we look overall clinically a week ago until today, no meaningful improvements: continues to get low tidal volumes, atelectasis, and fails any attempt at SBT quickly and continues to require APRV to maintain adequate lung expansion. cardiac function no better despite 12L diuresis. kidneys are some improved but not significant, and mental status is very poor and metabolic encephalopathy is severe. With this many organs dysfunctional, this is a very poor prognosis. I had a long talk with the family where I expressed my concerns. The and medical decision maker clearly states in front of the whole family and palliative care that he would not want CPR or shocking or anything like that, as this would only prolong suffering, but he is having trouble with the decision to withdraw care, and would like to think about it and give a final decision about palliation vs. trach/peg and aggressive care tomorrow. 02/19: UO adequate but reduced over past few hours, labs today are pending. Changed mode to PC/AC. Attempted CPAP, failed due to low tidal volumes. Following commands, but very weak. Objective Vital Signs Date Time Temp Pulse Resp B/P (MAP) Pulse Ox O2 Delivery O2 Flow Rate FiO2 02/19/17 08:23 100 40 02/19/17 08:00 79 02/19/17 08:00 98.8 12 94/54 (67) 02/19/17 07:00 Mechanical Ventilator Intake and Output 02/19/17 02/19/17 02/20/17 08:00 16:00 00:00 Intake Total 300 ml 30 ml Output Total 150 ml Balance 150 ml 30 ml Result Diagram: 02/18/1730 02/18/172033 Imaging Last Impressions Head CT 02/11/17 0000 Signed Impressions: Service Date/Time: Saturday, February 11, 2017 04:32 - CONCLUSION: Normal examination. Tyrone Simmons MD Renal Ultrasound 02/10/17 0000 Signed Impressions: Service Date/Time: Friday, February 10, 2017 23:06 - CONCLUSION: Normal examination. No evidence of obstruction or hydronephrosis.. Tyrone Simmons MD Chest X-Ray 02/10/17 0000 Signed Impressions: Service Date/Time: Friday, February 10, 2017 21:41 - CONCLUSION: 1. ET tube 1 cm from the anai. This can be pulled back 2 cm to be in a better position. 2. Cardiomegaly. Multiple electronic devices are seen over the chest. 3. Diffuse pulmonary consolidations likely representing edema. There is further atelectasis or consolidation the bases and probably bilateral effusions. Gregory Perry MD Breast Ultrasound 02/03/17 0000 Signed Impressions: Service Date/Time: Friday, February 03, 2017 18:49 - CONCLUSION: Complex cystic lesion measuring up to 11.8 cm centered at the 12:00 position left breast. Given the clinical history of recent procedure in this area this could represent a noninfected or infected fluid collection. Given the complex internal architecture, percutaneous drainage will likely not be successful. Once the patient's condition permits, consider outpatient diagnostic mammogram and ultrasound followup. Gregory Bob MD ADDENDUM: Another consideration given the prior CT appearance and current imaging findings is an old hematoma. Gregory Bob MD Abdomen/Pelvis CT 02/03/17 0000 Signed Impressions: Service Date/Time: Friday, February 03, 2017 17:35 - CONCLUSION: 1. CT findings characteristic of right heart insufficiency with diffuse but stable anasarca in the visible soft tissues and leaves of the mesentery as well as a small amount of ascites. Intrahepatic IVC is markedly dilated. 2. Previously identified bilateral pleural effusions are significantly improved with only a small amount of fluid on the left. There is some persistent atelectasis in the left base. 3. Heart size remains prominent. 4. Otherwise stable. Mt Alvarez MD Objective Remarks GENERAL: 71-year-old a female, lying in bed, intubated, sedated, critically ill appearing. SKIN: Warm and dry. No rash HEAD: Atraumatic. Normocephalic. EYES: Pupils equal and round bilaterally reactive. No conjunctival icterus. No injection or drainage. ENT: No nasal bleeding or discharge. Mucous membranes pink and moist. NECK: Trachea midline. large neck circumference prevents accurate assessment of JVD. orotracheally intubated CARDIOVASCULAR: Regular rate and rhythm RESPIRATORY: APRV 26/0, fio2 35%. improved chest wall excursion. Changed vent mode to PC/AC THORAX - left breast less indurated than before. LifeVest still in place. GASTROINTESTINAL: Abdomen soft, obese, nondistended. NGT output remains high > 700 ml in 24 hours MUSCULOSKELETAL: Extremities 2+ lower extremity edema. No obvious deformities. NEUROLOGICAL: Opens eyes intermittently following commands intermittently. off sedation. A/P Assessment and Plan Assessment: 71yF with h/o ICM, prior EF reported at 15%, s/p placement of AICD, recovery of LVEF to 60%, AICD infection s/p lead extraction, now with breast abscess, septic shock, volume overload, acute Systolic CHF exacerbation, acute hypoxic respiratory failure. still very critically ill and unable to measurably improve her organs. given the volume of diuresis we have achieved and no signs of volume depletion yet, this was clearly long-standing CHF exacerbation and would have taken months to get to this degree of volume overload, so clearly she has been declining for some time now. Family to decide tomorrow trach/peg vs. hospice. Per their expressed wishes, I have made the patient DNR and have asked that her LifeVest be removed. Daily plan includes continuing diuresis. continue diamox. continue NPO. Still very much off pathway with little improvements. highly complex with multiple medical problems. unlikely to have favorable outcome. Neuro/Psych: Metabolic Encephalopathy - secondary to co2 retention and sepsis. Hyperammonemia Hypoactive delirium Currently on propofol/fentanyl drips for sedation/analgesia while intubated Goal of RASS -[address] brain 02/10- negative for acute disease. amantadine for improved wakefulness. modafinil for alertness. CV: Acute CHF exacerbation: mixed type, including systolic, diastolic, and valvulopathy from severe tricuspid regurgitation. History arrhythmia/ chronic atrial fibrillation - LifeVest since 11/2016 Hypertension Coronary disease status post stent 3 Moderate to severe TR Acute intravascular volume overload Cor Pulmonale 2-D echocardiogram revealed EF of 60%. Severe TR. PAP 33 mmHg, bedside critical care echo 02/11: moderately depressed LV function. clinically significant TR. holding metoprolol, enalapril, amlodipine for hypotension Previously on bumetanide 2 mg daily with KCl 10 mEq twice a day. continue bumex drip to 2mg/hr. diamox 500mg iv q8h. Now becoming oliguric Dr. Love wants to start hemodialysis if family wants to continue aggressive care continue concentrated albumin. Continue amiodarone 200 mg by mouth daily Dr. Feliciano - cardiology and Dr. Garcia, CT surgery following hold spironolactone given renal function. hold Sacibutril/Valsartan continue sildenafil 20mg po q8hr carvedilol 3.125 mg po q12h. Resp: Acute hypoxic respiratory failure Compressive atelectasis/consolidation LLL Possible LLL HCAP pneumonia Acute pulmonary edema Severe acute intravascular volume overload COPD - 3 L oxygen dependent APRV 6.4:1, 26/0. PS 5. changed to PRVC Failed CPAP due to low TV Ventilator bundle Albuterol/ipratropium aerosols every 4 hours albuterol aerosols every 2 hours. Dyspnea wean fio2 for goal spo2 > 90% CT chest 02/11: moderate right pleural effusion. densely consolidated LLL. severe cardiomegaly. no drainable effusion which is large enough to prevent pulmonary mechanics. GI: Hyperammonemia Acute protein calorie malnutrition - moderate Acute intravascular volume overload Obesity Constipation Adynamic Ileus Abdominal Distension NGT to LIWS. Pantoprazole for GI prophylaxis Docusate sodium/senna for bowel regimen lactulose qid for elevated ammonia which is likely secondary to early congestive hepatopathy trend daily ammonias. daily BMPs diuresis as above. continue aggressive bowel regimen: - senna/colace - miraLAX BID - lactulose QID - dulcolax supp daily - reglan 5mg iv q8h : Acute Kidney Injury- improving. maintain ellis today. forced diuresis as above kidney injury likely multifactorial and combination of shock and venous congestion from volume overload. lungs and heart function require urgent forced diuresis, despite kidney injury. Start HD per Dr. Love if family wants to continue aggressive care Endo: Diabetes mellitus Hypoglycemia Hold insulin detemir 27 units at night. Currently on sliding scale insulin with Novulog low regimen every 6 hours d10w @ 42cc/hr. maintain dextrose source while npo. Renal: Acute kidney injury in the setting of chronic kidney disease stage III - very slowly resolving. Followed by nephrology/by Dr. Love Avoid nephrotoxic drugs Heme: Normocytic anemia Chronic warfarin use Currently holding warfarin 4 mg daily. CBC and INR daily Does not meet transfusion threshold at this time Currently on iron sulfate 325 mg by mouth twice a day ID: Escherichia coli UTI History of MSSA abscess to left breast Pertinent cultures 02/08 - urine - gram-negative bela 02/04 - blood cultures 2- no growth 02/03 - urine - Escherichia coli Followed by Dr. Tamayo/ID watch off abx. improving. FEN: Replace electrolytes as clinically indicated MSK: Postop day #10 I&D left breast hematoma by Dr. Garcia PT evaluate and treat Access - Utilize peripheral IV. Continue to use right upper extremity single lumen PICC line. Central line if indicated Prophylaxis - GI - pantoprazole - DVT - SCD/SQH 5000 q12h. Overall impression: overall likely poor prognosis given acute exacerbation of multiple chronic medical problems. Ashley Jenkins MD Feb 19, 2017 10:21
--- NOTE | 2017-02-19 12:18 | HHI.HCPN ---
Reason for visit a. To assist with evaluation and management of symptoms including:dyspnea, debility b. To assist medical decision maker(s) with: better understanding of current medical conditions; weighing benefits/burdens of medical treatment options; making medical treatment decisions. Subjective/Interval History Patient is a 71 year old female with a past medical history significant for CHF , chronic atrial fibrillation anticoagulated on Coumadin, COPD on home oxygen, HTN, and diabetes mellitus who presented to the ED after being evaluated by Dr. Feliciano in the office on 02/04/17 for a erythematous, edematous, left breast where her AICD was recently removed secondary to infection with endocarditis. Upon presentation patient complained of shortness of breath, abdominal distention, lower extremity edema, and a 50 pound weight gain over the past month. The patient presented to the ED on 11/28/16 for left breast pain and swelling, at that time she was discharged from the emergency department with a prescription for clindamycin. The patient returned to ED on 12/10/16 and was hospitalized until 12/27/16 for severe sepsis and left breast cellulitis, during that hospitalization the patient was found to have blood cultures positive for MSSA, underwent a AICD and lead extraction on 12/18/16, was found to iron deficiency anemia, and acute kidney injury. The patient was discharged home with home oxygen and a LifeVest. 02/07/17: Cardiothoracic surgery reconsulted to evaluate left chest hematoma, 02/10/17: patient taken to the OR for I&D of left breast hematoma, 600mL fluid drained from chest wall/left breast. Critical care management consulted due to respiratory compromise post operatively, patient originally requiring respiratory support via BiPAP, however she became unresponsive, hypotensive likely secondary to cardiogenic/septic shock, and was subsequently intubated, placed on vasopressors. Patient continued to have a complicated ICU stay over the following week secondary to fluid volume overload , CHF, respiratory failure, ongoing renal failure, liver failure, encephalopathy , and adynamic ileus. Patient seen and examined in room, no family at bedside. Patient remains intubated and mechanically ventilated, ventilator mode changed today to PC/AC, patient was unable to tolerate CPAP trials this morning. Chest CXR today revelaed minimal bilateral consolidations are unchanged. Laboratory data for today still pending. Patient is lethargic, opens eyes spontaneously, weakly follows some simple one step commands. Palliative Care will continue to assist with symptom management and to discuss with the patient's family the benefits and burdens of her current illnesses and the options regarding future care. Family plans to come in today with decision regarding trach/PEG/aggressive goals of care versus transitioning to comfort focused goals of care. Family/friend interactions Bedside meeting with patient's daughters Afsaneh and Desi, updated on patient' s clinical status. Patient's daughter Afsaneh stated that her father (the patient's who is the health care proxy) still has not been able to make a decision and needs more time to think about aggressive goals of care versus transitioning to comfort focused goals, she stated that they would like until Friday to think further before deciding. Advance Directives Living Will: Never completed Health Care Surrogate: Never completed Durable Power of Airplane Patroller: Never completed Objective Vital Signs Date Time Temp Pulse Resp B/P (MAP) Pulse Ox O2 Delivery O2 Flow Rate FiO2 02/19/17 11:37 100 40 02/19/17 10:00 40 02/19/17 10:00 89 02/19/17 08:23 100 40 02/19/17 08:00 79 02/19/17 08:00 98.8 79 12 94/54 (67) 100 02/19/17 08:00 40 02/19/17 07:00 100 Mechanical Ventilator 35 02/19/17 06:00 35 02/19/17 06:00 92 02/19/17 04:00 90 02/19/17 04:00 98.1 90 12 121/56 (77) 100 02/19/17 04:00 35 02/19/17 03:35 99 35 02/19/17 02:00 35 02/19/17 02:00 80 02/19/17 00:34 99 35 02/19/17 00:00 97.9 80 12 115/58 (77) 100 02/19/17 00:00 35 02/19/17 00:00 80 02/18/17 22:00 35 02/18/17 22:00 90 02/18/17 20:16 100 35 02/18/17 20:00 35 02/18/17 20:00 86 02/18/17 20:00 98.1 86 12 145/60 (88) 100 02/18/17 19:00 100 Mechanical Ventilator 35 02/18/17 18:00 35 02/18/17 18:00 92 02/18/17 16:00 35 02/18/17 16:00 80 02/18/17 16:00 98.7 80 12 131/61 (84) 100 02/18/17 15:53 100 35 02/18/17 14:00 83 02/18/17 14:00 35 Intake & Output 02/19/17 02/19/17 07:00 19:00 Intake Total 850 ml 130 ml Output Total 150 ml Balance 700 ml 130 ml IV Total 650 ml 130 ml Tube Feeding 0 ml Other 200 ml Output Urine Total 150 ml # Bowel Movements 0 . Physical Exam CONSTITUTIONAL/GENERAL: This is a critically ill elderly appearing female patient, intubated, and mechanically ventilated. TUBES/LINES/DRAINS: PICC line RUE, PIV x1, ellis catheter SKIN: No jaundice, rashes, or lesions. Ecchymoses on upper extremities. Left breast incision covered with bandage. Skin temperature appropriate. Not diaphoretic. NECK: Trachea midline. CARDIOVASCULAR: Regular rate and rhythm without murmurs, gallops, or rubs. Peripheral pulses symmetric. RESPIRATORY/CHEST: Symmetric, mechanically ventilated. Course crackles throughout. Breath sounds equal bilaterally. GASTROINTESTINAL: Abdomen firm, distended. Bowel sounds hypoactive. GENITOURINARY: Ellis catheter in place draining clear yellow urine. MUSCULOSKELETAL: Extremities without clubbing, cyanosis. BLE edema 2+. NEUROLOGICAL:Lethargic.Opens eyes spontaneously. Follows simple one step commands. PSYCHIATRIC: Unable to assess secondary to clinical condition. . Diagnostic Tests Laboratory Laboratory Tests Test 02/17/17 04:30 02/18/17 05:30 02/18/17 20:34 White Blood Count 8.6 TH/MM3 (4.0-11.0) 7.2 TH/MM3 (4.0-11.0) Red Blood Count 3.28 MIL/MM3 (4.00-5.30) 3.39 MIL/MM3 (4.00-5.30) Hemoglobin 9.0 GM/DL (11.6-15.3) 9.4 GM/DL (11.6-15.3) Hematocrit 28.3 % (35.0-46.0) 29.3 % (35.0-46.0) Mean Corpuscular Volume 86.5 FL (80.0-100.0) 86.5 FL (80.0-100.0) Mean Corpuscular Hemoglobin 27.4 PG (27.0-34.0) 27.6 PG (27.0-34.0) Mean Corpuscular Hemoglobin Concent 31.6 % (32.0-36.0) 31.9 % (32.0-36.0) Red Cell Distribution Width 22.3 % (11.6-17.2) 22.2 % (11.6-17.2) Platelet Count 219 TH/MM3 (150-450) 219 TH/MM3 (150-450) Mean Platelet Volume 6.8 FL (7.0-11.0) 7.1 FL (7.0-11.0) Blood Urea Nitrogen 30 MG/DL (7-18) 31 MG/DL (7-18) Creatinine 1.89 MG/DL (0.50-1.00) 1.86 MG/DL (0.50-1.00) Random Glucose 100 MG/DL (74-106) 95 MG/DL (74-106) Calcium Level 8.8 MG/DL (8.5-10.1) 9.4 MG/DL (8.5-10.1) Sodium Level 137 MEQ/L (136-145) 135 MEQ/L (136-145) Potassium Level 3.5 MEQ/L (3.5-5.1) 2.9 MEQ/L (3.5-5.1) 3.4 MEQ/L (3.5-5.1) Chloride Level 97 MEQ/L (98-107) 94 MEQ/L (98-107) Carbon Dioxide Level 32.0 MEQ/L (21.0-32.0) 33.0 MEQ/L (21.0-32.0) Anion Gap 8 MEQ/L (5-15) 8 MEQ/L (5-15) Estimat Glomerular Filtration Rate 32 ML/MIN (>89) 32 ML/MIN (>89) Result Diagram: 02/18/17 0530 02/18/172033 Imaging Last 72 hours Impressions Chest X-Ray 02/19/17 0000 Signed Impressions: Service Date/Time: Sunday, February 19, 2017 08:23 - CONCLUSION: Tubes and catheter in good position. Minimal bilateral consolidations unchanged . Tyrone Simmons MD Abdomen X-Ray 02/17/17 0000 Signed Impressions: Service Date/Time: Friday, February 17, 2017 09:50 - CONCLUSION: Distended small and large bowel in a pattern not typical for small bowel obstruction. It could represent ileus. Consider imaging followup to document improvement. Gregory Bob MD Procedures 02/10/17: I&D left breast 02/10/17:Intubated Assessment and Plan Disease Oriented Problem List: (1) CHF (congestive heart failure) (2) Respiratory failure with hypercapnia (3) Anasarca (4) AICD generator infection Symptom Scale: (1) Debility (2) Dyspnea Pertinent Non-Medical Issues Psychosocial: Patient is originally from [place], she is , she had five children, only two daughters still living. Spiritual: Orthodox. Legal: None known. Ethical issues impacting care: None known. Important Contacts Damaris Dailey () [phone] Desi Burrell (daughter) [phone] . Prognosis Patient has a long standing history of cardiomyopathy, CHF, COPD, now with respiratory failure, ARF, liver failure, and adynamic ileus. Patient is critically ill, intubated on mechanical ventilation in multiorgan failure. Due to patient's advanced age, multiple comorbidities, and debilitated status she is at an ongoing risk for complications/setbacks. Code Status: No Code Plan Plan * Legal decision maker: Patient is currently not capacitated to make informed medical decisions independently. It is unclear if she will regain capacity. Patient does not have any previous written advanced directives, per [place] statutes in the absence of written advanced directives health care decision making would fall to her next of kin which is her . * Goals: Aggressive short of cardiopulmonary resuscitation for the time being. Patient's daughter Afsaneh stated that her father (the patient's who is the health care proxy) still has not been able to make a decision and needs more time to think about aggressive goals of care versus transitioning to comfort focused goals, she stated that they would like until Friday to think further before deciding. * CODE STATUS: DNR. * SYMPTOMS: --Dyspnea: Multifactorial, secondary to CHF, COPD, fluid volume overload, respiratory failure, etc. Patient is currently intubated and mechanically ventilated. No recommendations at this time. --Debility: Patient has had multiple complicated hospital stays in recent months in addition to multiple comorbidities already present contributing to debilitated status. Patient is currently critically ill and unable to participate in any PT/OT. No recommendations at this time. * Palliative care will continue to follow during hospital course as condition evolves, to assist patient/decision-maker with understanding of medical conditions, weighing benefits/burdens of treatment options, for clarification of goals of treatment. Additionally will assist with any symptoms of palliative concern Attestation To help prompt me to consider important information that might be impacting today's encounter and assessment, information from prior notes written by myself or my colleagues may have been "brought forward" into today's note. My signature on this note, however, is an attestation that I personally performed the exam, history, and/or decision-making noted today, and, unless otherwise indicated, the interactions with patient, family, and staff as well as the review of records all occurred today. I also attest that the listed assessment and stated plan reflect my best clinical judgment today based on the combination of historical information, prior notes, and today's exam/ interactions. When time spent is documented, it refers only to time spent today by the signer, or if indicated, combined time spent today by collaborating physician/nurse practitioner. Sunshine Cagle Feb 19, 2017 12:18
[2017-02-19] MEDS: fentaNYL DRIP 250 ML IV PRN (12:19)
[2017-02-19] MEDS: DEXTROSE 10% INJ 1,000 ML IV SCH (12:19)
--- NOTE | 2017-02-19 12:29 | HHI.NPPN ---
Subjective History of Present Illness 71 year old female with ARF/CHF.Hematoma Left breast Additional Remarks intubated Objective Data Data 02/19/17 02/20/17 19:00 07:00 Intake Total 498 ml Balance 498 ml IV Total 498 ml Vital Signs Date Time Temp Pulse Resp B/P (MAP) Pulse Ox O2 Delivery O2 Flow Rate FiO2 02/19/17 11:37 100 40 02/19/17 10:00 40 02/19/17 10:00 89 02/19/17 08:23 100 40 02/19/17 08:00 79 02/19/17 08:00 98.8 79 12 94/54 (67) 100 02/19/17 08:00 40 02/19/17 07:00 100 Mechanical Ventilator 35 02/19/17 06:00 35 02/19/17 06:00 92 02/19/17 04:00 90 02/19/17 04:00 98.1 90 12 121/56 (77) 100 02/19/17 04:00 35 02/19/17 03:35 99 35 02/19/17 02:00 35 02/19/17 02:00 80 02/19/17 00:34 99 35 02/19/17 00:00 97.9 80 12 115/58 (77) 100 02/19/17 00:00 35 02/19/17 00:00 80 02/18/17 22:00 35 02/18/17 22:00 90 02/18/17 20:16 100 35 02/18/17 20:00 35 02/18/17 20:00 86 02/18/17 20:00 98.1 86 12 145/60 (88) 100 02/18/17 19:00 100 Mechanical Ventilator 35 02/18/17 18:00 35 02/18/17 18:00 92 02/18/17 16:00 35 02/18/17 16:00 80 02/18/17 16:00 98.7 80 12 131/61 (84) 100 02/18/17 15:53 100 35 02/18/17 14:00 83 02/18/17 14:00 35 -: 02/18/17 0530 02/18/174 Physical Exam General Appearance: Well Developed Neck Neck Exam: Neck Supple Pulmonary Resp Exam: Decreased Bases Cardiology CV Exam: Arrhythmia Gastrointestinal/Abdomen GI Exam: Distended, Bowel Sounds Hypoactive Extremeties Extremities Exam: Pitting Edema Assessment/Plan Problem List: (1) HARVEY (acute kidney injury) ICD Codes: N17.9 - Acute kidney failure, unspecified Status: Acute Plan: Patient has congestive heart failure Continues on Bumex drip at 2 mg/hr urine output declined . Creatinine 2 -> 1.8 family informed of worsening renal failure . Continue diuresis - on bumex, She has abdominal distention and ileus D10 42 cc/hr Avoid nephrotoxins follow BMP (2) Hematoma (nontraumatic) of breast ICD Codes: N64.89 - Other specified disorders of breast Plan: Surgically operated on (3) Bilateral lower extremity edema ICD Codes: R60.0 - Bilateral lower extremity edema Status: Acute Plan: Due to congestive heart failure (4) CHF (congestive heart failure) ICD Codes: I50.9 - CHF (congestive heart failure) Status: Chronic Plan: With acute decompensation Lasix ordered after surgery (5) UTI (urinary tract infection) ICD Codes: N39.0 - UTI (urinary tract infection) Status: Acute Plan: Gram-negative Enterobacter cefepime Problem Qualifiers (1) CHF (congestive heart failure): Qualified Codes: I50.33 - Acute on chronic diastolic (congestive) heart failure Laurel Love MD Feb 19, 2017 12:29
[2017-02-19 12:58] LABS: ALKALINE PHOSPHATASE 45 U/L (45-117); ALT (GPT) 7 U/L (10-53); ANION GAP 8 MEQ/L (5-15); AST (GOT) 10 U/L (15-37); BICARBONATE 30.3 MEQ/L (21.0-32.0); BLOOD UREA NITROGEN 35 MG/DL (7-18); CHLORIDE 93 MEQ/L (98-107); GLOMERULAR FILTRATION RATE 23 ML/MIN (>89); POTASSIUM 3.9 MEQ/L (3.5-5.1); SODIUM (NA) 131 MEQ/L (136-145); TOTAL BILIRUBIN ADULT 1.8 MG/DL (0.2-1.0)
[2017-02-20] VITALS (17 sets, daily range): BP systolic 118–142; BP diastolic 57–63; PULSE 68–86; RESP 16; TEMP 98.3–100.8; O2SAT 99–100
[2017-02-20] MEDS: fentaNYL DRIP 250 ML IV PRN ×2 (01:03→17:32)
[2017-02-20] MEDS: CHLORHEXIDINE GLUCONATE 2 % 1 PACK (2 CLOTHS) TOP SCH (04:00)
[2017-02-20] MEDS: RESP: ALBUTEROL 2.5 MG/IPRATROPIUM 0.5 MG NEB (SCH) INH ×5 (04:15→20:45)
[2017-02-20] MEDS: INSULIN ASPART SUPPLEMENTAL SCALE SQ SCH ×4 (06:00→18:00)
[2017-02-20] MEDS: SILDENAFIL CITRATE 20 MG TAB PO SCH ×3 (06:00→19:39)
[2017-02-20] MEDS: METOCLOPRAMIDE HCL 10 MG/2 ML VIAL IV PUSH SCH ×3 (06:05→21:15)
[2017-02-20] MEDS: ALBUMIN 25% INJ 100 ML IV SCH ×3 (06:06→18:23)
[2017-02-20] MEDS: BUMETANIDE INJ 100 ML IV SCH ×3 (07:30→22:34)
[2017-02-20] MEDS ORDERED: ACETAMINOPHEN 1000 MG/100 ML 65 ML IV PRN (07:45)
--- NOTE | 2017-02-20 07:59 | RADRPT ---
EXAM DATE/TIME: 02/20/2017 05:35 [facility] COMPARISON: ABDOMEN KUB ONLY, February 17, 2017, 9:50. INDICATIONS : Ileus. MEDICAL HISTORY : Myocardial infarction. Congestive heart failure. Hypertension. Left eye cataracts. Dentures, Anti coagulant therapy, COPD, Asthma, Dyspnea. SURGICAL HISTORY : Cardiac cath, internal defibrillator, right lumpectomy ENCOUNTER: Subsequent ACUITY: 3 days PAIN SCORE: Non-responsive. LOCATION: Abdomen. FINDINGS: Gastric tube tip projects to the right of midline in the expected location of the antrum. There is g as-distended loops of small and large bowel with small bowel loops measuring up to 3.5 cm. The appea garrett of the loops of bowel similar to prior examination 3 days ago. There is persistent consolidati on with air bronchograms the left lower lung and a new area of consolidation with air bronchograms in the region of the right cardiophrenic angle. CONCLUSION: 1. Similar degree of gaseous distention of small and large bowel when compared to prior KUB. 2. New consolidative infiltrate in the medial right lower lung and persistent consolidation left lowe r lung. Quinn Marx MD on February 20, 2017 at 7:55 Board Certified Radiologist. This report was verified electronically.
[2017-02-20] MEDS: CHLORHEXIDINE 0.12% (ORAL KIT) 15 ML CUP MT SCH ×2 (08:00→20:52)
[2017-02-20] MEDS: ARTIFICIAL TEARS OPTH SOLN 15 ML BTL EACH EYE SCH ×3 (09:00→18:16)
[2017-02-20] MEDS: SODIUM CHLORIDE 0.9% FLUSH 10 ML FLUSH IV FLUSH SCH ×2 (09:00→20:52)
[2017-02-20] MEDS: AMIODARONE 200 MG TAB PO SCH (09:00)
[2017-02-20] MEDS: BISACODYL 10 MG SUPP RECTAL SCH (09:00)
[2017-02-20] MEDS: MAGNESIUM HYDROXIDE SUSP 30 ML CUP PO SCH ×2 (09:00→19:37)
[2017-02-20] MEDS: DOCUSATE SODIUM 50 MG/SENNA 8.6 MG TAB PO SCH ×2 (09:00→19:37)
[2017-02-20] MEDS: LACTULOSE SYRUP 20 GM/30 ML CUP PO SCH ×2 (09:00→19:38)
[2017-02-20] MEDS: CARVEDILOL 3.125 MG TAB PO SCH ×2 (09:00→19:38)
[2017-02-20] MEDS: FERROUS SULFATE 325 MG (65 MG ELEMENTAL IRON) TAB PO SCH ×2 (09:00→19:38)
[2017-02-20] MEDS: SENNOSIDES 8.6 MG TAB PO SCH ×2 (09:00→19:37)
[2017-02-20] MEDS: AMANTADINE HCL SOLN 100 MG/10 ML UDC PO SCH ×2 (09:00→19:37)
[2017-02-20] MEDS: POLYETHYLENE GLYCOL 17 GM PKG PO SCH ×2 (09:00→19:37)
[2017-02-20] MEDS: MODAFINIL 200 MG TAB PO SCH (09:00)
[2017-02-20 09:03] LABS: BASOPHIL % 0.6 % (0.0-2.0); EOSINOPHIL # 0.2 TH/MM3 (0-0.4); EOSINOPHIL % 2.1 % (0.0-4.0); HEMATOCRIT 27.7 % (35.0-46.0); LYMPH % 12.7 % (9.0-44.0); MEAN CELL VOLUME 86.7 FL (80.0-100.0); MEAN CORPUSCULAR HEMOGLOBIN 27.5 PG (27.0-34.0); MEAN CORPUSCULAR HGB CONC 31.7 % (32.0-36.0); MONO % 18.8 % (0.0-8.0); NEUT % 65.8 % (16.0-70.0); PLATELET COUNT 247 TH/MM3 (150-450); RED BLOOD COUNT 3.19 MIL/MM3 (4.00-5.30); RED CELL DISTRIBUTION WIDTH 20.7 % (11.6-17.2); WHITE BLOOD COUNT 7.6 TH/MM3 (4.0-11.0)
[2017-02-20 09:06] LABS: HEMO FLAGS AUTO DIFF
[2017-02-20 09:21] LABS: ALT (GPT) 9 U/L (10-53); ANION GAP 7 MEQ/L (5-15); AST (GOT) 11 U/L (15-37); BICARBONATE 29.7 MEQ/L (21.0-32.0); BLOOD UREA NITROGEN 40 MG/DL (7-18); CHLORIDE 94 MEQ/L (98-107); GLOMERULAR FILTRATION RATE 18 ML/MIN (>89); POTASSIUM 3.5 MEQ/L (3.5-5.1); SODIUM (NA) 131 MEQ/L (136-145)
[2017-02-20 09:24] LABS: ALKALINE PHOSPHATASE 44 U/L (45-117); TOTAL BILIRUBIN ADULT 1.6 MG/DL (0.2-1.0)
[2017-02-20 09:38] LABS: SCAN/DIFF AUTO DIFF CONFIRMED
[2017-02-20] MEDS: HEPARIN SODIUM - SQ 10,000 UNITS/ML VIAL SQ SCH ×2 (09:41→20:52)
[2017-02-20] MEDS: PANTOPRAZOLE SODIUM 40 MG VIAL IV PUSH SCH (09:41)
--- NOTE | 2017-02-20 11:48 | PD.CONS ---
HPI History of Present Illness This is a 71 year old female who is currently hospitalized in the intensive care unit and being treated for ischemic cardiomyopathy, congestive heart failure/pulmonary edema, acute respiratory failure, metabolic encephalopathy, COPD, possible left lower lobe HCAP, malnutrition, HARVEY with multiple electrolytes, MSSA abscess to left breast. The nurse reports that she has had high residuals for the past several days and worsening distention. KUB ()---> Similar degree of gaseous distention of small and large bowel when compared to prior KUB. New consolidative infiltrate in the medial right lower lung and persistent consolidation left lower lung. Her OGT is now to LIWS. Her last bowel movement was documented on 02/18/17. She is receiving Reglan 5mg IV q8h, Senokot 17.2 q12h, Miralax 17gram daily, Lactulose 30mL po QID, but continues to have worsening distention. Palliative care is following and they are considering withdrawal, but her family has not made a decision at this time. (Merline Agrawal) PFSH Past Medical History Diabetes mellitus Hypertension Congestive heart failure Ischemic cardiomyopathy Coronary artery disease status post cardiac stents placed Atrial fibrillation on chronic anticoagulation on Coumadin COPD on home oxygen Past Surgical History Right breast lumpectomy Hysterectomy Appendectomy AICD placement with subsequent removal and laser lead extraction due to infection Cholecystectomy (Merline Agrawal) Coded Allergies: penicillin G (Unverified Allergy, Severe, rash, 12/31/16) benazepril (Unverified Allergy, Mild, 12/31/16) HUMBLE inhibitor angioedema, swelling of the face lips and anterior tongue captopril (Unverified Allergy, Mild, 12/31/16) HUMBLE inhibitor angioedema, swelling of the face lips and anterior tongue enalaprilat (Unverified Allergy, Mild, 12/31/16) HUMBLE inhibitor angioedema, swelling of the face lips and anterior tongue fosinopril (Unverified Allergy, Mild, 12/31/16) HUMBLE inhibitor angioedema, swelling of the face lips and anterior tongue lisinopril (Unverified Allergy, Mild, 12/31/16) HUMBLE inhibitor angioedema, swelling of the face lips and anterior tongue quinapril (Unverified Allergy, Mild, 12/31/16) HUMBLE inhibitor angioedema, swelling of the face lips and anterior tongue Uncoded Allergies: NON COMPATIBLE PACEMAKER (Adverse Reaction, Severe, MRI PRECAUTION / PACEMAKER, 11/03/14) MRI PRECAUTION. PACEMAKER Medications Allergies Coded Allergies Type Severity Reaction Last Updated Verified penicillin G Allergy Severe rash 12/31/16 No benazepril Allergy Mild 12/31/16 No captopril Allergy Mild 12/31/16 No enalaprilat Allergy Mild 12/31/16 No fosinopril Allergy Mild 12/31/16 No lisinopril Allergy Mild 12/31/16 No quinapril Allergy Mild 12/31/16 No Uncoded Allergies Type Severity Reaction Last Updated Verified NON COMPATIBLE PACEMAKER Adverse Reaction Severe MRI PRECAUTION /PACEMAKER 11/03 Active Scripts Medications Dose Route/Sig Max Daily Dose Days Date Category Dose Instructions Lantus Inj (Insulin Glargine) 1,000 Unit/10 Ml Vial 27 Units SQ HS PRN 02/03/17 Reported Warfarin 4 Mg Tab 4 Mg PO DAILY 02/03/17 Reported Ferrous Sulfate 325 Mg (65 Mg Iron) Tablet 325 Mg PO BID 12/27/16 Rx Bumetanide 2 Mg Tab 2 Mg PO DAILY 12/27/16 Rx K-Tab (Potassium Chloride) 10 Meq Tab 10 Meq PO BID 12/27/16 Rx Epinephrine Inj 1 Mg/Ml (1 Ml) Inj 0.3 Mg IV PUSH ONCE PRN 12/26/16 Rx Oxygen (O2) (Miscellaneous Medication) Inha Liter JENNIFER.CANULA CONTINUOUS 12/26/16 Rx Oxygen Concentrator Portable Gaseous 2 L/min via Nasal Canula Continuous For 99 months Defibrillator Jacket (Device) 1 Ea Device Ea EXTERNAL ONCE 12/25/16 Rx Energy = 150 Joules; VT Threshold = 150 BPM; VF Threshold = 200 BPM Use up to 90 days only [place] (Hydrocodone-Acetaminophen) 5-325 mg Tab 1 Tab PO BID PRN 12/10/16 Reported Enalapril (Enalapril Maleate) 10 Mg Tab 10 Mg PO BID 12/10/16 Reported Metoprolol Succinate ER 24 HR (Metoprolol Succinate) 50 Mg Tab 50 Mg PO DAILY 04/07/16 Reported Amlodipine (Amlodipine Besylate) 5 Mg Tab 5 Mg PO DAILY 04/07/16 Reported Amiodarone (Amiodarone HCl) 200 Mg Tab 200 Mg PO DAILY 04/07/16 Reported Family History Mother with cardiac disease. Father with diabetes. Social History Quit smoking approximately 2 months ago, smoked one half pack per day since 1968. Occasional alcohol. Denies marijuana or illicit drugs. (Merline Agrawal) Review of Systems ROS Unable to obtain. (Merline Agrawal) GI Exam Vitals I&O Vital Signs Date Time Temp Pulse Resp B/P (MAP) Pulse Ox O2 Delivery O2 Flow Rate FiO2 02/20/17 11:11 100 40 02/20/17 10:00 40 02/20/17 10:00 75 02/20/17 08:00 40 02/20/17 08:00 80 02/20/17 08:00 98.3 80 16 142/63 (89) 100 02/20/17 07:49 100 40 02/20/17 07:00 100 Mechanical Ventilator 40 02/20/17 06:00 40 02/20/17 06:00 80 02/20/17 04:15 100 40 02/20/17 04:00 80 02/20/17 04:00 100.8 80 16 137/61 (86) 100 02/20/17 04:00 40 02/20/17 02:00 86 02/20/17 02:00 40 02/20/17 00:00 40 02/20/17 00:00 86 02/20/17 00:00 99.9 80 16 133/62 (85) 100 02/19/17 23:17 100 40 02/19/17 22:00 86 02/19/17 22:00 40 02/19/17 20:00 40 02/19/17 20:00 91 02/19/17 20:00 99.5 91 16 115/56 (75) 100 02/19/17 20:00 40 02/19/17 20:00 86 02/19/17 19:52 100 40 02/19/17 19:00 100 Mechanical Ventilator 40 02/19/17 18:00 40 02/19/17 18:00 89 02/19/17 16:00 40 02/19/17 16:00 99.9 85 16 98/50 (66) 100 02/19/17 16:00 85 02/19/17 15:28 100 40 02/19/17 14:00 40 02/19/17 14:00 92 02/19/17 12:41 40 02/19/17 12:41 84 16 131/68 (89) 100 02/19/17 12:41 84 02/19/17 11:37 100 40 I/O 02/19/17 02/19/17 02/19/17 02/20/17 02/20/17 02/20/17 07:00 15:00 23:00 07:00 15:00 23:00 Intake Total 400 ml 498 ml 275 ml 0 ml Output Total 150 ml 175 ml 800 ml Balance 250 ml 498 ml 100 ml -800 ml IV Total 200 ml 498 ml 75 ml Tube Feeding 0 ml 0 ml 0 ml Other 200 ml 200 ml Output Urine Total 150 ml 175 ml 300 ml Gastric Drainage Total 350 ml Emesis 150 ml # Bowel Movements 0 0 0 Imaging Last Impressions Abdomen X-Ray 02/20/17 0000 Signed Impressions: Service Date/Time: January 05:35 - CONCLUSION: 1. Similar degree of gaseous distention of small and large bowel when compared to prior KUB. 2. New consolidative infiltrate in the medial right lower lung and persistent consolidation left lower lung. Quinn Marx MD Chest X-Ray 02/19/17 0000 Signed Impressions: Service Date/Time: Sunday, February 19, 2017 08:23 - CONCLUSION: Tubes and catheter in good position. Minimal bilateral consolidations unchanged . Tyrone Simmons MD Head CT 02/11/17 0000 Signed Impressions: Service Date/Time: Saturday, February 11, 2017 04:32 - CONCLUSION: Normal examination. Tyrone Simmons MD Chest CT 02/11/17 0000 Signed Impressions: Service Date/Time: Saturday, February 11, 2017 22:16 - CONCLUSION: Heart is quite enlarged. ET tube is in good position. There is a dense consolidation involving almost the entire left lower lobe with small left pleural effusion. There is a moderate size right pleural effusion measuring 3.2 x 6.0 cm across. Tyrone Simmons MD Renal Ultrasound 02/10/17 0000 Signed Impressions: Service Date/Time: Friday, February 10, 2017 23:06 - CONCLUSION: Normal examination. No evidence of obstruction or hydronephrosis.. Tyrone Simmons MD Breast Ultrasound 02/03/17 0000 Signed Impressions: Service Date/Time: Friday, February 03, 2017 18:49 - CONCLUSION: Complex cystic lesion measuring up to 11.8 cm centered at the 12:00 position left breast. Given the clinical history of recent procedure in this area this could represent a noninfected or infected fluid collection. Given the complex internal architecture, percutaneous drainage will likely not be successful. Once the patient's condition permits, consider outpatient diagnostic mammogram and ultrasound followup. Gregory Bob MD ADDENDUM: Another consideration given the prior CT appearance and current imaging findings is an old hematoma. Gregory Bob MD Abdomen/Pelvis CT 02/03/17 0000 Signed Impressions: Service Date/Time: Friday, February 03, 2017 17:35 - CONCLUSION: 1. CT findings characteristic of right heart insufficiency with diffuse but stable anasarca in the visible soft tissues and leaves of the mesentery as well as a small amount of ascites. Intrahepatic IVC is markedly dilated. 2. Previously identified bilateral pleural effusions are significantly improved with only a small amount of fluid on the left. There is some persistent atelectasis in the left base. 3. Heart size remains prominent. 4. Otherwise stable. Mt Alvarez MD Laboratory Test 02/19/17 12:00 02/20/17 08:37 Blood Urea Nitrogen 35 MG/DL 40 MG/DL Creatinine 2.48 MG/DL 3.10 MG/DL Random Glucose 87 MG/DL 79 MG/DL Total Protein 7.9 GM/DL 7.5 GM/DL Albumin 4.9 GM/DL 4.5 GM/DL Calcium Level 9.4 MG/DL 8.8 MG/DL Alkaline Phosphatase 45 U/L 44 U/L Aspartate Amino Transf (AST/SGOT) 10 U/L 11 U/L Alanine Aminotransferase (ALT/SGPT) 7 U/L 9 U/L Total Bilirubin 1.8 MG/DL 1.6 MG/DL Sodium Level 131 MEQ/L 131 MEQ/L Potassium Level 3.9 MEQ/L 3.5 MEQ/L Chloride Level 93 MEQ/L 94 MEQ/L Carbon Dioxide Level 30.3 MEQ/L 29.7 MEQ/L Anion Gap 8 MEQ/L 7 MEQ/L Estimat Glomerular Filtration Rate 23 ML/MIN 18 ML/MIN White Blood Count 7.6 TH/MM3 Red Blood Count 3.19 MIL/MM3 Hemoglobin 8.8 GM/DL Hematocrit 27.7 % Mean Corpuscular Volume 86.7 FL Mean Corpuscular Hemoglobin 27.5 PG Mean Corpuscular Hemoglobin Concent 31.7 % Red Cell Distribution Width 20.7 % Platelet Count 247 TH/MM3 Mean Platelet Volume 7.3 FL Neutrophils (%) (Auto) 65.8 % Lymphocytes (%) (Auto) 12.7 % Monocytes (%) (Auto) 18.8 % Eosinophils (%) (Auto) 2.1 % Basophils (%) (Auto) 0.6 % Neutrophils # (Auto) 5.0 TH/MM3 Lymphocytes # (Auto) 1.0 TH/MM3 Monocytes # (Auto) 1.4 TH/MM3 Eosinophils # (Auto) 0.2 TH/MM3 Basophils # (Auto) 0.0 TH/MM3 CBC Comment AUTO DIFF Differential Comment AUTO DIFF CONFIRMED Date/Time Source Procedure Growth Status 02/20/17 08:37 Blood Peripheral Aerobic Blood Culture Pending Received 02/20/17 08:37 Blood Peripheral Anaerobic Blood Culture Pending Received 02/10/17 17:33 Fluid Other Fungal Smear - Final NO FUNGAL ELEMENTS SEEN. Resulted 02/10/17 17:33 Fluid Other Fungal Culture - Preliminary NO GROWTH IN 1 WEEK Resulted 02/20/17 08:45 Sputum Endotracheal Gram Stain Pending Received 02/20/17 08:45 Sputum Endotracheal Sputum Culture Pending Received 02/20/17 08:45 Urine Catheterized Urine Urine Culture Pending Received 02/10/17 17:33 Wound Other Fungal Smear - Final NO FUNGAL ELEMENTS SEEN. Resulted 02/10/17 17:33 Wound Other Fungal Culture - Preliminary NO GROWTH IN 1 WEEK Resulted Physical Examination HEENT: Normocephalic; atraumatic; no jaundice. CHEST: OETT to vent CARDIAC: RRR ABDOMEN: Firm, distended, diffuse tenderness, bowel sounds are very hypoactive. OGT to LIWS EXTREMITIES: No clubbing, cyanosis, or edema. MANAGER MEDICAL: Sedated on vent. (Merline Agrawal) Assessment and Plan Plan ASSESSMENT: - Severe ileus. High residuals and progressively worsening distention over the past few days. KUB (02/20/17)---> Similar degree of gaseous distention of small and large bowel when compared to prior KUB. New consolidative infiltrate in the medial right lower lung and persistent consolidation left lower lung. OGT to LIWS. Last BM was on 02/18. On Reglan 5mg IV q8h, Senokot 17.2 q12h, Miralax 17gram daily, Lactulose 30mL po QID, but continues to have worsening distention. She is getting Fentanyl for sedation. Noncontrasted CT scan on 02/03 without bowel obstruction. Will give trial of Relistor 12mg sq x 1, SSE x 2, then place red rectal tube to gravity. If no improvement, may need colonic decompression in am. - Respiratory failure with COPD, pulmonary edema, and possible LLL HCAP. Nebs, diamox, vent per ccm - Ischemic CMP, CHF, CAD, afib. AMiodarone. On heparin. - HARVEY with multiple electrolyte abnormalities. Worsening renal function. - Anemia, normocytic. 8.8/27.7. No obvious active bleeding. - Metabolic encephalopathy, elevated ammonia. On lactulose. - MSSA abscess left breast, s/p I&D left breast hematoma 02/10 PLAN: - NPO - OGT to LIWS - Relistor 12mg sq x 1 - SSE x 2 - After enemas, place red rectal tube to gravity - Cont. Reglan - Decrease lactulose to BID (worsening distention and not producing bm) - Add Miralax - Cont. Senokot, Colace - KUB in am - If no improvement, may need decompressive colonoscopy - Hold 9am dose of heparin tomorrow morning in case she needs procedure - Supportive care - FUrther recommendations to follow based on results of above - Pt seen and examined by Dr. Garcias and myself and this note is written on his behalf (Merline Agrawal) Physician Comments Seen and examined with SHANNA, bowel regimen ordered. Repeat enemas and x rays. ? colonoscopy . Family considering hospice.Discussed with Dr. Jenkins. (Caity Garcias MD) Merline Agrawal Feb 20, 2017 11:48 Caity Garcias MD Feb 20, 2017 14:17
[2017-02-20] MEDS ORDERED: METHYLNALTREXONE BROMIDE 12 MG/0.6 ML VIAL SQ ONE (12:00)
--- NOTE | 2017-02-20 12:31 | HHI.CCPN ---
Subjective Remarks/Hospital Course DUPLICATE NOTE Objective Vital Signs Date Time Temp Pulse Resp B/P (MAP) Pulse Ox O2 Delivery O2 Flow Rate FiO2 02/20/17 12:00 98.4 76 16 118/57 (77) 100 02/20/17 12:00 40 02/20/17 07:00 Mechanical Ventilator Intake and Output 02/20/17 02/20/17 02/20/17 07:59 15:59 23:59 Intake Total 0 ml Output Total 800 ml Balance -800 ml Result Diagram: 02/20/17 0837 02/20/17 0837 Imaging Last Impressions Head CT 02/11/17 0000 Signed Impressions: Service Date/Time: Saturday, February 11, 2017 04:32 - CONCLUSION: Normal examination. Tyrone Simmons MD Renal Ultrasound 02/10/17 0000 Signed Impressions: Service Date/Time: Friday, February 10, 2017 23:06 - CONCLUSION: Normal examination. No evidence of obstruction or hydronephrosis.. Tyrone Simmons MD Chest X-Ray 02/10/17 0000 Signed Impressions: Service Date/Time: Friday, February 10, 2017 21:41 - CONCLUSION: 1. ET tube 1 cm from the anai. This can be pulled back 2 cm to be in a better position. 2. Cardiomegaly. Multiple electronic devices are seen over the chest. 3. Diffuse pulmonary consolidations likely representing edema. There is further atelectasis or consolidation the bases and probably bilateral effusions. Gregory Perry MD Breast Ultrasound 02/03/17 0000 Signed Impressions: Service Date/Time: Friday, February 03, 2017 18:49 - CONCLUSION: Complex cystic lesion measuring up to 11.8 cm centered at the 12:00 position left breast. Given the clinical history of recent procedure in this area this could represent a noninfected or infected fluid collection. Given the complex internal architecture, percutaneous drainage will likely not be successful. Once the patient's condition permits, consider outpatient diagnostic mammogram and ultrasound followup. Gregory Bob MD ADDENDUM: Another consideration given the prior CT appearance and current imaging findings is an old hematoma. Gregory Bob MD Abdomen/Pelvis CT 02/03/17 0000 Signed Impressions: Service Date/Time: Friday, February 03, 2017 17:35 - CONCLUSION: 1. CT findings characteristic of right heart insufficiency with diffuse but stable anasarca in the visible soft tissues and leaves of the mesentery as well as a small amount of ascites. Intrahepatic IVC is markedly dilated. 2. Previously identified bilateral pleural effusions are significantly improved with only a small amount of fluid on the left. There is some persistent atelectasis in the left base. 3. Heart size remains prominent. 4. Otherwise stable. MD Gregory Wilkes Sinoj K. MD Feb 20, 2017 12:31
--- NOTE | 2017-02-20 13:04 | HHI.CCPN ---
Subjective Remarks/Hospital Course Hospital Course: This is a 71-year-old Afro-[place] female. Date of admission 02/04/2017. Past medical history includes diastolic congestive heart failure, COPD, chronic atrial fibrillation, diabetes, hypertension and history of MSSA infection on cefazolin. Patient presents to [facility] initially on 02/04 with left breast swelling. In November/2016, patient was diagnosed with endocarditis and AICD infection. At that time, Pacemaker removed . Since that time she's had increasing swelling in her left breast and currently has an abscess of the location 11.8 cm in size. She also complained of Shortness of breath. This is associated with a self-reported 50 pound weight gain with bilateral lower extremity edema and significant stomach swelling. She also reports shortness of breath. She was treated with cefazolin at home include 01/29/2017. After cessation of treatment, she noted The patient reports a significant increase in her left breast swelling over the past 2-3 days. She states the area is tender to palpation and painful. She does not have a leukocytosis. Breast ultrasound showed a complex cystic lesion measuring up to 11.8 cm in the left breast that could represent a fluid collection or old hematoma. Today in 02/10, patient ID of her left breast by Dr. Joy. 300 crystalloid. EBL 50. Urine output 60. Patient received 40 mg torsemide IV post procedure. Her oxygenation requirements increasing currently on BiPAP. She is currently unresponsive when seen in [facility]. She'll be intubated at the present time Subjective: 02/11: intubated overnight. now on vasopressors with fever. likely mixed cardiogenic/septic shock from a combination of volume overload and breast abscess. Also has significant bilateral pleural effusion, left > right by CXR and bedside ultrasound. significantly up in weight. respiratory failure likely from volume overload, although worsening acute kidney injury and shock complicates picture. 02/12: despite aggressive diuresis increasing to bumex drip, still net + and poor diuresis. may require dialysis if no improvement. remains borderline hypoglycemic. renal function continues to worsen. no BM x 2 days. peak pressures on vent elevated. CT chest yesterday without significant effusions but completely collapsed LLL, likely a large component of atelectasis from severe cardiomegaly, but cannot rule out pna. no meaningful improvements from yesterday. 11/16: much improved diuresis yesterday and now net negative 1.7L/24h. Cr still uptrending, but only slightly. pulmonary compliance also has improved with overnight APRV. discussed care with Dr. Garcia and we both agree that inhaled epoprostenol may be of benefit in assisting with RV function to mitigate severe TR and assist with diuresis and hemodynamics. ammonia up slightly, although now having regular bowel movements. 02/14: good diuresis. Cr plateaued. LFTs and T bili slightly worse. ammonia stable without significant improvements. also had 1 episode of emesis today: tube feeds on hold and NGT to LIWS. 02/15: Heart is shaped like a bowling ball. Gas exchange much improved, continued diuresis. Residual NG aspirate > 500 - will reconnect to LIS, start reglan. Decrease T-high to 4.5, add pressure support 5. Lighten fentanyl. Diarrhea remains problematic. 02/16: blood pressure improved. bnp still uptrending. good diuresis. art line removed for non-functioning. 02/17: still diuresing with > 2L/24h negative balance. Cr still downtrending. bp still stable. tolerated initiation of sildenafil. persists with high gastric residuals. KUB with adynamic ileus. starting to weakly follow commands this morning, but still very somnolent. 02/18: continues to diurese on bumex drip with albumin and diamox. Cr continues to downtrend. bp stable. tolerating sildenafil. ileus persists. no tolerance of gastric tube feeds at all. no following commands this morning. If we look overall clinically a week ago until today, no meaningful improvements: continues to get low tidal volumes, atelectasis, and fails any attempt at SBT quickly and continues to require APRV to maintain adequate lung expansion. cardiac function no better despite 12L diuresis. kidneys are some improved but not significant, and mental status is very poor and metabolic encephalopathy is severe. With this many organs dysfunctional, this is a very poor prognosis. I had a long talk with the family where I expressed my concerns. The and medical decision maker clearly states in front of the whole family and palliative care that he would not want CPR or shocking or anything like that, as this would only prolong suffering, but he is having trouble with the decision to withdraw care, and would like to think about it and give a final decision about palliation vs. trach/peg and aggressive care tomorrow. 02/19: UO adequate but reduced over past few hours, labs today are pending. Changed mode to PC/AC. Attempted CPAP, failed due to low tidal volumes. Following commands, but very weak. 02/20: Worsening clinically with worsening abdominal distention/ileus creatinine 3.1 today remains oliguric. New fever Tmax 101, KUB shows right lower lung infiltrate which is new. Pancultured started on cefepime. Nothing by mouth to place NG tube to intermittent wall suction. GI consult placed. GI has ordered Relistor Objective Vital Signs Date Time Temp Pulse Resp B/P (MAP) Pulse Ox O2 Delivery O2 Flow Rate FiO2 02/20/17 12:00 98.4 76 16 118/57 (77) 100 02/20/17 12:00 40 02/20/17 07:00 Mechanical Ventilator Intake and Output 02/20/17 02/20/17 02/20/17 07:59 15:59 23:59 Intake Total 0 ml Output Total 800 ml Balance -800 ml Result Diagram: 02/20/17 0837 02/20/17 0837 Imaging Last Impressions Head CT 02/11/17 0000 Signed Impressions: Service Date/Time: Saturday, February 11, 2017 04:32 - CONCLUSION: Normal examination. Tyrone Simmons MD Renal Ultrasound 02/10/17 0000 Signed Impressions: Service Date/Time: Friday, February 10, 2017 23:06 - CONCLUSION: Normal examination. No evidence of obstruction or hydronephrosis.. Tyrone Simmons MD Chest X-Ray 02/10/17 0000 Signed Impressions: Service Date/Time: Friday, February 10, 2017 21:41 - CONCLUSION: 1. ET tube 1 cm from the anai. This can be pulled back 2 cm to be in a better position. 2. Cardiomegaly. Multiple electronic devices are seen over the chest. 3. Diffuse pulmonary consolidations likely representing edema. There is further atelectasis or consolidation the bases and probably bilateral effusions. Gregory Perry MD Breast Ultrasound 02/03/17 0000 Signed Impressions: Service Date/Time: Friday, February 03, 2017 18:49 - CONCLUSION: Complex cystic lesion measuring up to 11.8 cm centered at the 12:00 position left breast. Given the clinical history of recent procedure in this area this could represent a noninfected or infected fluid collection. Given the complex internal architecture, percutaneous drainage will likely not be successful. Once the patient's condition permits, consider outpatient diagnostic mammogram and ultrasound followup. Gregory Bob MD ADDENDUM: Another consideration given the prior CT appearance and current imaging findings is an old hematoma. Gregory Bob MD Abdomen/Pelvis CT 02/03/17 0000 Signed Impressions: Service Date/Time: Friday, February 03, 2017 17:35 - CONCLUSION: 1. CT findings characteristic of right heart insufficiency with diffuse but stable anasarca in the visible soft tissues and leaves of the mesentery as well as a small amount of ascites. Intrahepatic IVC is markedly dilated. 2. Previously identified bilateral pleural effusions are significantly improved with only a small amount of fluid on the left. There is some persistent atelectasis in the left base. 3. Heart size remains prominent. 4. Otherwise stable. Mt Alvarez MD Objective Remarks GENERAL: 71-year-old a female, lying in bed, intubated, off all sedation for several days SKIN: Warm and dry. No rash HEAD: Atraumatic. Normocephalic. EYES: Pupils equal and round bilaterally reactive. No conjunctival icterus. No injection or drainage. ENT: No nasal bleeding or discharge. Mucous membranes pink and moist. NECK: Trachea midline. orotracheally intubated CARDIOVASCULAR: Regular rate and rhythm RESPIRATORY: PC/AC with equal air entry bilateral THORAX - left breast less indurated than before. LifeVest still in place. GASTROINTESTINAL: Abdomen tense distended. NGT output remains high. MUSCULOSKELETAL: Extremities 2+ lower extremity edema. No obvious deformities. NEUROLOGICAL: Opens eyes intermittently following commands intermittently on 4 extremities. off sedation. A/P Assessment and Plan Assessment: 71yF with h/o ICM, prior EF reported at 15%, s/p placement of AICD, recovery of LVEF to 60%, AICD infection s/p lead extraction, now with breast abscess, septic shock, volume overload, acute Systolic CHF exacerbation, acute hypoxic respiratory failure. still very critically ill and unable to measurably improve her organs. Family to decide tomorrow trach/peg vs. hospice by tomorrow. DNR now Continuing diuresis with Bumex and Diamox. continue NPO. Still very much off pathway with little improvements. Now with new fever and pneumonia, worsening renal failure and ileus. Prognosis very poor Neuro/Psych: Metabolic Encephalopathy - secondary to co2 retention and sepsis. Hyperammonemia Hypoactive delirium Remains off all sedation for several days Goal of RASS -0 CT brain 02/10- negative for acute disease. amantadine for improved wakefulness. modafinil for alertness. CV: Acute CHF exacerbation: mixed type, including systolic, diastolic, and valvulopathy from severe tricuspid regurgitation. History arrhythmia/ chronic atrial fibrillation - LifeVest since 11/2016 Hypertension Coronary disease status post stent 3 Moderate to severe TR Acute intravascular volume overload Cor Pulmonale 2-D echocardiogram revealed EF of 60%. Severe TR. PAP 33 mmHg, bedside critical care echo 02/11: moderately depressed LV function. clinically significant TR. holding metoprolol, enalapril, amlodipine for hypotension Previously on bumetanide 2 mg daily with KCl 10 mEq twice a day. continue bumex drip to 2mg/hr. diamox 500mg iv q8h. Now oliguric Dr. Love wants to start hemodialysis if family wants to continue aggressive care-decision to be made in am 02/21/17 continue concentrated albumin. Continue amiodarone 200 mg by mouth daily Dr. Feliciano - cardiology and Dr. Garcia, CT surgery following hold spironolactone given renal function. hold Sacibutril/Valsartan continue sildenafil 20mg po q8hr carvedilol 3.125 mg po q12h. Resp: Acute hypoxic respiratory failure Compressive atelectasis/consolidation LLL Possible LLL HCAP pneumonia Acute pulmonary edema Severe acute intravascular volume overload COPD - 3 L oxygen dependent PRVC/AC Failed CPAP due to low TV Ventilator bundle Albuterol/ipratropium aerosols every 4 hours albuterol aerosols every 2 hours. Dyspnea wean fio2 for goal spo2 > 90% CT chest 02/11: moderate right pleural effusion. densely consolidated LLL. severe cardiomegaly. KUB 02/20 New RLL infiltrate, ileus no drainable effusion which is large enough to prevent pulmonary mechanics. GI: Severe Ileus Abdominal Distension Hyperammonemia Acute protein calorie malnutrition - moderate Acute intravascular volume overload Obesity Constipation NGT to LIWS. Pantoprazole for GI prophylaxis Docusate sodium/senna for bowel regimen lactulose qid for elevated ammonia which is likely secondary to early congestive hepatopathy daily BMPs diuresis as above. continue aggressive bowel regimen: - senna/colace - miraLAX BID - lactulose QID - dulcolax supp daily - reglan 5mg iv q8h - GI consulted for worsening ileus. Relistor 1 : Acute Kidney failure worsening maintain ellis today. forced diuresis as above kidney injury likely multifactorial and combination of shock and venous congestion from volume overload. lungs and heart function require urgent forced diuresis, despite kidney injury. Start HD per Dr. Love if family wants to continue aggressive care Endo: Diabetes mellitus Hypoglycemia Hold insulin detemir 27 units at night. Currently on sliding scale insulin with NovoLog low regimen every 6 hours d10w @ 42cc/hr. maintain dextrose source while NPO. Renal: Acute kidney injury in the setting of chronic kidney disease stage III worsening Followed by nephrology/by Dr. Love Avoid nephrotoxic drugs Heme: Normocytic anemia Chronic warfarin use Currently holding warfarin 4 mg daily. CBC and INR daily Does not meet transfusion threshold at this time Currently on iron sulfate 325 mg by mouth twice a day-holding due to ileus ID: Fever/RLL infiltrate/HCAP Escherichia coli UTI History of MSSA abscess to left breast Pertinent cultures 02/20 german culture 02/08 - urine - Enterobacter 02/04 - blood cultures 2- no growth 02/03 - urine - Escherichia coli Followed by Dr. Tamayo/ID Start cefepime and single dose vanc 02/20 FEN: Replace electrolytes as clinically indicated MSK: Postop day #11 I&D left breast hematoma by Dr. Garcia PT evaluate and treat Access - Utilize peripheral IV. Continue to use right upper extremity single lumen PICC line. Central line if indicated Prophylaxis - GI - pantoprazole - DVT - SCD/SQH 5000 q12h. Overall impression: overall likely poor prognosis given acute exacerbation of multiple chronic medical problems. Critically ill now, taking a turn for the worse now with new sepsis right lower lobe infiltrate worsening acute kidney injury and worsening ileus prognosis very poor. Family to make decision on hospice versus continued aggressive care tomorrow CCT 35 MIN Ashley Jenkins MD Feb 20, 2017 13:04
[2017-02-20] MEDS: CEFEPIME INJ 1,000 MG in SODIUM CHLORIDE 0.9% INJ 100 ML IV SCH (13:35)
[2017-02-20] MEDS: DEXTROSE 10% INJ 1,000 ML IV SCH (15:21)
--- NOTE | 2017-02-20 15:58 | HHI.NPPN ---
Subjective History of Present Illness 71 year old female with ARF/CHF.Hematoma Left breast Additional Remarks intubated Objective Data Data 02/20/17 02/21/17 19:00 07:00 Intake Total 200 ml Balance 200 ml IV Total 200 ml Vital Signs Date Time Temp Pulse Resp B/P (MAP) Pulse Ox O2 Delivery O2 Flow Rate FiO2 02/20/17 14:00 73 02/20/17 12:00 98.4 76 16 118/57 (77) 100 02/20/17 12:00 76 02/20/17 12:00 40 02/20/17 11:11 100 40 02/20/17 10:00 40 02/20/17 10:00 75 02/20/17 08:00 40 02/20/17 08:00 80 02/20/17 08:00 98.3 80 16 142/63 (89) 100 02/20/17 07:49 100 40 02/20/17 07:00 100 Mechanical Ventilator 40 02/20/17 06:00 40 02/20/17 06:00 80 02/20/17 04:15 100 40 02/20/17 04:00 80 02/20/17 04:00 100.8 80 16 137/61 (86) 100 02/20/17 04:00 40 02/20/17 02:00 86 02/20/17 02:00 40 02/20/17 00:00 40 02/20/17 00:00 86 02/20/17 00:00 99.9 80 16 133/62 (85) 100 02/19/17 23:17 100 40 02/19/17 22:00 86 02/19/17 22:00 40 02/19/17 20:00 40 02/19/17 20:00 91 02/19/17 20:00 99.5 91 16 115/56 (75) 100 02/19/17 20:00 40 02/19/17 20:00 86 02/19/17 19:52 100 40 02/19/17 19:00 100 Mechanical Ventilator 40 02/19/17 18:00 40 02/19/17 18:00 89 02/19/17 16:00 40 02/19/17 16:00 99.9 85 16 98/50 (66) 100 02/19/17 16:00 85 -: 02/20/17 0837 02/20/17 0837 Microbiology 02/20/17 Aerobic Blood Culture, Received Pending 02/20/17 Anaerobic Blood Culture, Received Pending 02/20/17 Aerobic Blood Culture, Received Pending 02/20/17 Anaerobic Blood Culture, Received Pending 02/20/17 Gram Stain, Received Pending 02/20/17 Sputum Culture, Received Pending 02/20/17 Urine Culture, Received Pending Physical Exam General Appearance: Well Developed Neck Neck Exam: Neck Supple Pulmonary Resp Exam: Decreased Bases Cardiology CV Exam: Arrhythmia Gastrointestinal/Abdomen GI Exam: Distended, Bowel Sounds Hypoactive Extremeties Extremities Exam: Pitting Edema Assessment/Plan Problem List: (1) HARVEY (acute kidney injury) ICD Codes: N17.9 - Acute kidney failure, unspecified Status: Acute Plan: Patient has congestive heart failure Continues on Bumex drip at 2 mg/hr urine output declined now minimal multi organ failure Bowel obstruction consider dialysis if family wishes for aggressive care . Creatinine 2 -> 3.1 . Continue diuresis - on bumex, She has abdominal distention and ileus bowel obstruction poor prognosis D10 42 cc/hr Avoid nephrotoxins follow BMP (2) Hematoma (nontraumatic) of breast ICD Codes: N64.89 - Other specified disorders of breast Plan: Surgically operated on (3) Bilateral lower extremity edema ICD Codes: R60.0 - Bilateral lower extremity edema Status: Acute Plan: Due to congestive heart failure (4) CHF (congestive heart failure) ICD Codes: I50.9 - CHF (congestive heart failure) Status: Chronic Plan: With acute decompensation Lasix ordered after surgery (5) UTI (urinary tract infection) ICD Codes: N39.0 - UTI (urinary tract infection) Status: Acute Plan: Gram-negative Enterobacter cefepime Problem Qualifiers (1) CHF (congestive heart failure): Qualified Codes: I50.33 - Acute on chronic diastolic (congestive) heart failure Laurel Love MD Feb 20, 2017 15:58
[2017-02-20] MEDS: BUMETANIDE IV SCH ×2 (18:15→22:33)
[2017-02-21] VITALS (18 sets, daily range): BP systolic 132–174; BP diastolic 58–76; PULSE 60–78; RESP 16–20; TEMP 97.7–99.4; O2SAT 97–100
[2017-02-21] MEDS: CHLORHEXIDINE GLUCONATE 2 % 1 PACK (2 CLOTHS) TOP SCH (02:33)
[2017-02-21] MEDS: SILDENAFIL CITRATE 20 MG TAB PO SCH ×3 (02:34→21:12)
[2017-02-21] MEDS: CEFEPIME INJ 1,000 MG in SODIUM CHLORIDE 0.9% INJ 100 ML IV SCH ×2 (02:37→12:55)
[2017-02-21] MEDS: ALBUMIN 25% INJ 100 ML IV SCH ×3 (02:37→20:31)
[2017-02-21] MEDS: RESP: ALBUTEROL 2.5 MG/IPRATROPIUM 0.5 MG NEB (SCH) INH ×7 (03:14→23:16)
--- NOTE | 2017-02-21 05:45 | RADRPT ---
EXAM DATE/TIME: 02/21/2017 02:23 [facility] COMPARISON: CHEST SINGLE AP, February 19, 2017, 8:23. INDICATIONS : Respiratory failure and pulmonary infiltrates. MEDICAL HISTORY : Myocardial infarction. Congestive heart failure. Hypertension. Left eye cataracts. Dentures, Anticoag ulant therapy, COPD, Asthma, Dyspnea SURGICAL HISTORY : Cardiac cath, internal defibrillator, right lumpectomy. ENCOUNTER: Subsequent ACUITY: 1 week PAIN SCORE: Non-responsive. LOCATION: Bilateral chest FINDINGS: A single AP semierect portable view of the chest was obtained. The patient is rotated to the left. No the endotracheal tube remains in place with the tip approximately 4-5 cm above the anai. A nasogas tric tube has been advanced further into the stomach. Dense consolidation is now noted at the left rabia ng base with air bronchograms and obscuration of the hemidiaphragm. The heart size remains moderately enlarged. There is mild hazy opacity at the right lung base. Multiple overlying electrocardiogram le ads are present. CONCLUSION: 1. Rotated exam with dense consolidation now noted at the left lung base with air bronchograms. 2. Milder patchy infiltrate in the right lung base. Sergio Haro MD on February 21, 2017 at 5:42 Board Certified Radiologist. This report was verified electronically.
--- NOTE | 2017-02-21 05:52 | RADRPT ---
EXAM DATE/TIME: 02/21/2017 02:28 [facility] COMPARISON: ABDOMEN KUB ONLY, February 20, 2017, 5:35. INDICATIONS : Severe ileus. MEDICAL HISTORY : Myocardial infarction. Congestive heart failure. Hypertension. Left eye cataracts. Dentures, Anticoag ulant therapy, COPD, Asthma, Dyspnea SURGICAL HISTORY : Cardiac cath, internal defibrillator, right lumpectomy ENCOUNTER: Subsequent ACUITY: 4 - 6 days PAIN SCORE: Non-responsive. LOCATION: abdomen FINDINGS: A single AP supine view of the abdomen and pelvis was obtained. This demonstrates interval placement of a small rectal tube in place. The nasogastric tube remains in place. There's been interval improve ment in the bowel gas pattern with decrease in the loops of dilated air containing colon. Dense conso lidation is again noted the left lung base with air bronchograms and abnormal opacification with obsc uration of the left hemidiaphragm. There is no evidence of free air. CONCLUSION: 1. Interval placement of small bore rectal catheter. 2. Interval improvement in bowel gas pattern. 3. Dense consolidation remains in the left lung base. Sergio Haro MD on February 21, 2017 at 5:49 Board Certified Radiologist. This report was verified electronically.
[2017-02-21] MEDS: INSULIN ASPART SUPPLEMENTAL SCALE SQ SCH ×4 (06:00→18:00)
[2017-02-21] MEDS: METOCLOPRAMIDE HCL 10 MG/2 ML VIAL IV PUSH SCH ×3 (06:17→22:19)
[2017-02-21 06:23] LABS: AUTOMATED NEUTROPHIL # 5.4 TH/MM3 (1.8-7.7); BASOPHIL % 0.5 % (0.0-2.0); EOSINOPHIL # 0.1 TH/MM3 (0-0.4); EOSINOPHIL % 1.7 % (0.0-4.0); HEMO FLAGS DIFF FINAL; LYMPH % 9.4 % (9.0-44.0); LYMPHOCYTE # 0.7 TH/MM3 (1.0-4.8); MEAN CELL VOLUME 86.3 FL (80.0-100.0); MEAN CORPUSCULAR HEMOGLOBIN 27.4 PG (27.0-34.0); MEAN CORPUSCULAR HGB CONC 31.7 % (32.0-36.0); NEUT % 73.4 % (16.0-70.0); PLATELET COUNT 248 TH/MM3 (150-450); RED BLOOD COUNT 3.25 MIL/MM3 (4.00-5.30); RED CELL DISTRIBUTION WIDTH 21.1 % (11.6-17.2); WHITE BLOOD COUNT 7.3 TH/MM3 (4.0-11.0)
[2017-02-21 06:43] LABS: ANION GAP 10 MEQ/L (5-15); BICARBONATE 28.3 MEQ/L (21.0-32.0); BLOOD UREA NITROGEN 43 MG/DL (7-18); CHLORIDE 92 MEQ/L (98-107); GLOMERULAR FILTRATION RATE 17 ML/MIN (>89); POTASSIUM 3.1 MEQ/L (3.5-5.1); SODIUM (NA) 130 MEQ/L (136-145)
[2017-02-21 06:44] LABS: ALT (GPT) 9 U/L (10-53); AST (GOT) 13 U/L (15-37)
[2017-02-21 06:47] LABS: ALKALINE PHOSPHATASE 44 U/L (45-117); TOTAL BILIRUBIN ADULT 1.6 MG/DL (0.2-1.0)
[2017-02-21] MEDS: PANTOPRAZOLE SODIUM 40 MG VIAL IV PUSH SCH (08:49)
[2017-02-21] MEDS: ARTIFICIAL TEARS OPTH SOLN 15 ML BTL EACH EYE SCH ×3 (08:50→18:00)
[2017-02-21] MEDS: CHLORHEXIDINE 0.12% (ORAL KIT) 15 ML CUP MT SCH ×2 (08:52→20:44)
[2017-02-21] MEDS: AMIODARONE 200 MG TAB PO SCH (08:52)
[2017-02-21] MEDS: SODIUM CHLORIDE 0.9% FLUSH 10 ML FLUSH IV FLUSH SCH ×2 (08:52→20:44)
[2017-02-21] MEDS: FERROUS SULFATE 325 MG (65 MG ELEMENTAL IRON) TAB PO SCH ×2 (08:53→21:12)
[2017-02-21] MEDS: CARVEDILOL 3.125 MG TAB PO SCH ×2 (08:53→21:12)
[2017-02-21] MEDS: LACTULOSE SYRUP 20 GM/30 ML CUP PO SCH ×2 (08:53→21:13)
[2017-02-21] MEDS: DOCUSATE SODIUM 50 MG/SENNA 8.6 MG TAB PO SCH ×2 (08:55→21:12)
[2017-02-21] MEDS: MODAFINIL 200 MG TAB PO SCH (08:55)
[2017-02-21] MEDS: MAGNESIUM HYDROXIDE SUSP 30 ML CUP PO SCH ×2 (08:55→21:13)
[2017-02-21] MEDS: SENNOSIDES 8.6 MG TAB PO SCH ×2 (08:55→21:12)
[2017-02-21] MEDS: POLYETHYLENE GLYCOL 17 GM PKG PO SCH ×2 (08:55→21:12)
[2017-02-21] MEDS: AMANTADINE HCL SOLN 100 MG/10 ML UDC PO SCH ×2 (08:57→21:13)
[2017-02-21] MEDS: BISACODYL 10 MG SUPP RECTAL SCH (08:57)
[2017-02-21] MEDS: fentaNYL DRIP 250 ML IV PRN (10:36)
--- NOTE | 2017-02-21 11:25 | HHI.NPPN ---
Subjective History of Present Illness 71 year old female with ARF/CHF.Hematoma Left breast Additional Remarks intubated Objective Data Data Vital Signs Date Time Temp Pulse Resp B/P (MAP) Pulse Ox O2 Delivery O2 Flow Rate FiO2 02/21/17 09:20 40 02/21/17 08:00 40 02/21/17 08:00 66 02/21/17 08:00 98.2 71 16 174/70 (104) 100 02/21/17 07:43 100 40 02/21/17 07:00 100 Mechanical Ventilator 40 02/21/17 06:00 40 02/21/17 06:00 76 02/21/17 04:00 76 02/21/17 04:00 40 02/21/17 04:00 98.9 76 20 132/59 (83) 100 02/21/17 03:15 100 40 02/21/17 02:00 66 02/21/17 02:00 40 02/21/17 00:00 40 02/21/17 00:00 78 02/21/17 00:00 100 40 02/21/17 00:00 99.4 78 16 154/76 (102) 100 02/20/17 22:00 40 02/20/17 22:00 70 02/20/17 20:46 99 40 02/20/17 20:00 99.0 68 16 129/63 (85) 100 02/20/17 20:00 40 02/20/17 20:00 68 02/20/17 19:00 100 Mechanical Ventilator 40 02/20/17 18:15 40 02/20/17 18:14 74 02/20/17 17:36 40 02/20/17 16:00 76 02/20/17 16:00 100.0 76 16 128/58 (81) 100 02/20/17 15:55 40 02/20/17 15:53 99 40 02/20/17 14:00 73 02/20/17 12:00 98.4 76 16 118/57 (77) 100 02/20/17 12:00 76 02/20/17 12:00 40 -: 02/21/17 0530 02/21/17 0530 Physical Exam General Appearance: Well Developed Neck Neck Exam: Neck Supple Pulmonary Resp Exam: Decreased Bases Cardiology CV Exam: Arrhythmia Gastrointestinal/Abdomen GI Exam: Distended, Bowel Sounds Hypoactive Extremeties Extremities Exam: Pitting Edema Assessment/Plan Problem List: (1) HARVEY (acute kidney injury) ICD Codes: N17.9 - Acute kidney failure, unspecified Status: Acute Plan: Patient has congestive heart failure Continues on Bumex drip at 2 mg/hr /Diamox UOP 750 ml urine output fair monitor, d/e goddaughter possible dialysis . Creatinine 2 -> 3.3 family informed of worsening renal failure . Continue diuresis - on bumex, Diamox uop 750 cc K low replace She has abdominal distention and ileus, rectal tube slight improved, Xray KUB slightly better D10 42 cc/hr Avoid nephrotoxins follow BMP (2) Hematoma (nontraumatic) of breast ICD Codes: N64.89 - Other specified disorders of breast Plan: Surgically operated on (3) Bilateral lower extremity edema ICD Codes: R60.0 - Bilateral lower extremity edema Status: Acute Plan: Due to congestive heart failure (4) CHF (congestive heart failure) ICD Codes: I50.9 - CHF (congestive heart failure) Status: Chronic Plan: With acute decompensation Lasix ordered after surgery (5) UTI (urinary tract infection) ICD Codes: N39.0 - UTI (urinary tract infection) Status: Acute Plan: Gram-negative Enterobacter cefepime Problem Qualifiers (1) CHF (congestive heart failure): Qualified Codes: I50.33 - Acute on chronic diastolic (congestive) heart failure Laurel Love MD Feb 21, 2017 11:25
[2017-02-21] MEDS ORDERED: POTASSIUM CHLOR 20 MEQ PREMIX 100 ML IV ONE (11:30)
[2017-02-21] MEDS ORDERED: DEXT 5%-NACL 0.9% 1000 ML INJ 1,000 ML IV SCH (11:30)
--- NOTE | 2017-02-21 11:30 | HHI.GIFU ---
Subjective Remarks Sedated on vent. + Liquid stool- 200cc out and still draining liquid stool. Abdominal distention improved, softer, but still distended. (Merline Agrawal) Objective Vitals I&O Vital Signs Date Time Temp Pulse Resp B/P (MAP) Pulse Ox O2 Delivery O2 Flow Rate FiO2 02/21/17 09:20 40 02/21/17 08:00 40 02/21/17 08:00 66 02/21/17 08:00 98.2 71 16 174/70 (104) 100 02/21/17 07:43 100 40 02/21/17 07:00 100 Mechanical Ventilator 40 02/21/17 06:00 40 02/21/17 06:00 76 02/21/17 04:00 76 02/21/17 04:00 40 02/21/17 04:00 98.9 76 20 132/59 (83) 100 02/21/17 03:15 100 40 02/21/17 02:00 66 02/21/17 02:00 40 02/21/17 00:00 40 02/21/17 00:00 78 02/21/17 00:00 100 40 02/21/17 00:00 99.4 78 16 154/76 (102) 100 02/20/17 22:00 40 02/20/17 22:00 70 02/20/17 20:46 99 40 02/20/17 20:00 99.0 68 16 129/63 (85) 100 02/20/17 20:00 40 02/20/17 20:00 68 02/20/17 19:00 100 Mechanical Ventilator 40 02/20/17 18:15 40 02/20/17 18:14 74 02/20/17 17:36 40 02/20/17 16:00 76 02/20/17 16:00 100.0 76 16 128/58 (81) 100 02/20/17 15:55 40 02/20/17 15:53 99 40 02/20/17 14:00 73 02/20/17 12:00 98.4 76 16 118/57 (77) 100 02/20/17 12:00 76 02/20/17 12:00 40 I/O 02/20/17 02/20/17 02/20/17 02/21/17 02/21/17 02/21/17 07:00 15:00 23:00 07:00 15:00 23:00 Intake Total 0 ml 450 ml 936 ml Output Total 800 ml 250 ml 800 ml Balance -800 ml 200 ml 136 ml IV Total 450 ml 936 ml Tube Feeding 0 ml 0 ml Other 0 ml Output Urine Total 300 ml 250 ml 500 ml Stool Total 200 ml Gastric Drainage Total 350 ml 0 ml 100 ml Emesis 150 ml 0 ml # Bowel Movements 0 0 Laboratory Laboratory Tests Test 02/21/17 05:30 White Blood Count 7.3 Red Blood Count 3.25 Hemoglobin 8.9 Hematocrit 28.0 Mean Corpuscular Volume 86.3 Mean Corpuscular Hemoglobin 27.4 Mean Corpuscular Hemoglobin Concent 31.7 Red Cell Distribution Width 21.1 Platelet Count 248 Mean Platelet Volume 7.5 Neutrophils (%) (Auto) 73.4 Lymphocytes (%) (Auto) 9.4 Monocytes (%) (Auto) 15.0 Eosinophils (%) (Auto) 1.7 Basophils (%) (Auto) 0.5 Neutrophils # (Auto) 5.4 Lymphocytes # (Auto) 0.7 Monocytes # (Auto) 1.1 Eosinophils # (Auto) 0.1 Basophils # (Auto) 0.0 CBC Comment DIFF FINAL Differential Comment Blood Urea Nitrogen 43 Creatinine 3.30 Random Glucose 97 Total Protein 8.0 Albumin 5.0 Calcium Level 9.1 Alkaline Phosphatase 44 Aspartate Amino Transf (AST/SGOT) 13 Alanine Aminotransferase (ALT/SGPT) 9 Total Bilirubin 1.6 Sodium Level 130 Potassium Level 3.1 Chloride Level 92 Carbon Dioxide Level 28.3 Anion Gap 10 Estimat Glomerular Filtration Rate 17 Date/Time Source Procedure Growth Status 02/20/17 08:37 Blood Peripheral Aerobic Blood Culture - Preliminary NO GROWTH IN 1 DAY Resulted 02/20/17 08:37 Blood Peripheral Anaerobic Blood Culture - Preliminary NO GROWTH IN 1 DAY Resulted 02/10/17 17:33 Fluid Other Fungal Smear - Final NO FUNGAL ELEMENTS SEEN. Resulted 02/10/17 17:33 Fluid Other Fungal Culture - Preliminary NO GROWTH IN 1 WEEK Resulted 02/20/17 08:45 Sputum Endotracheal Gram Stain - Final Resulted 02/20/17 08:45 Sputum Endotracheal Sputum Culture Pending Resulted 02/20/17 08:45 Urine Catheterized Urine Urine Culture - Preliminary Streptococcus Species Florina Albicans Resulted 02/10/17 17:33 Wound Other Fungal Smear - Final NO FUNGAL ELEMENTS SEEN. Resulted 02/10/17 17:33 Wound Other Fungal Culture - Preliminary NO GROWTH IN 1 WEEK Resulted Imaging Last Impressions Chest X-Ray 02/21/17 0600 Signed Impressions: Service Date/Time: Tuesday, February 21, 2017 02:23 - CONCLUSION: 1. Rotated exam with dense consolidation now noted at the left lung base with air bronchograms. 2. Milder patchy infiltrate in the right lung base. Sergio Haro MD Abdomen X-Ray 02/21/17 06 Signed Impressions: Service Date/Time: Tuesday, February 21, 2017 02:28 - CONCLUSION: 1. Interval placement of small bore rectal catheter. 2. Interval improvement in bowel gas pattern. 3. Dense consolidation remains in the left lung base. Sergio Haro MD Head CT 02/11/17 0000 Signed Impressions: Service Date/Time: Saturday, February 11, 2017 04:32 - CONCLUSION: Normal examination. Tyrone Simmons MD Chest CT 02/11/17 0000 Signed Impressions: Service Date/Time: Saturday, February 11, 2017 22:16 - CONCLUSION: Heart is quite enlarged. ET tube is in good position. There is a dense consolidation involving almost the entire left lower lobe with small left pleural effusion. There is a moderate size right pleural effusion measuring 3.2 x 6.0 cm across. Tyrone Simmons MD Renal Ultrasound 02/10/17 0000 Signed Impressions: Service Date/Time: Friday, February 10, 2017 23:06 - CONCLUSION: Normal examination. No evidence of obstruction or hydronephrosis.. Tyrone Simmons MD Breast Ultrasound 02/03/17 0000 Signed Impressions: Service Date/Time: Friday, February 03, 2017 18:49 - CONCLUSION: Complex cystic lesion measuring up to 11.8 cm centered at the 12:00 position left breast. Given the clinical history of recent procedure in this area this could represent a noninfected or infected fluid collection. Given the complex internal architecture, percutaneous drainage will likely not be successful. Once the patient's condition permits, consider outpatient diagnostic mammogram and ultrasound followup. Gregory Bob MD ADDENDUM: Another consideration given the prior CT appearance and current imaging findings is an old hematoma. Gregory Bob MD Abdomen/Pelvis CT 02/03/17 0000 Signed Impressions: Service Date/Time: Friday, February 03, 2017 17:35 - CONCLUSION: 1. CT findings characteristic of right heart insufficiency with diffuse but stable anasarca in the visible soft tissues and leaves of the mesentery as well as a small amount of ascites. Intrahepatic IVC is markedly dilated. 2. Previously identified bilateral pleural effusions are significantly improved with only a small amount of fluid on the left. There is some persistent atelectasis in the left base. 3. Heart size remains prominent. 4. Otherwise stable. Mt Alvarez MD Physical Exam HEENT: Normocephalic; atraumatic; no jaundice. CHEST: OETT to vent CARDIAC: RRR ABDOMEN: Soft, distended (improved from yesterday), bowel sounds are very hypoactive. OGT to LIWS. Rectal tube to gravity. EXTREMITIES: Generalized edema. [employer]: Sedated on vent. (Merline Agrawal) Assessment and Plan Plan ASSESSMENT: - Severe ileus. High residuals and progressively worsening distention over the past few days. OGT to LIWS. Reglan 5mg IV q8h, Senokot 17.2 q12h, Miralax 17gram BID, Lactulose 30mL po BID. CT scan 02/03 without bowel obstruction. S/P Relistor (02/20) S/P SSE x 2 (02/20), Rectal tube to gravity- 200cc liquid stool. Rpt. KUB ( 02/21/17)---> Interval placement of small bore rectal catheter, interval improvement in bowel gas patter, dense consolidation remains left lung base. Will cont. bowel regimen and repeat KUB in am. Okay for trickle feeds - Respiratory failure with COPD, pulmonary edema, and possible LLL HCAP. vent per ccm - Ischemic CMP, CHF, CAD, afib. Amiodarone. On heparin. - HARVEY with multiple electrolyte abnormalities. Worsening renal function. - Anemia, normocytic. 8.9/28.0. No obvious active bleeding. - Metabolic encephalopathy, elevated ammonia. On lactulose. - MSSA abscess left breast, s/p I&D left breast hematoma 02/10 PLAN: - Nepro at 10cc/hr - Cont. Reglan - Cont. lactulose to BID - Cont. Miralax - Cont. Senokot, Colace - S/P Relistor (02/20/17) - S/P SSE x 2 (02/20/17) - Rectal tube to gravity - KUB in am - Supportive care - Further recommendations to follow based on results of above - Pt seen and examined by Dr. Garcias and myself and this note is written on his behalf (Merline Agrawal) Physician Comments Seen and examined with SHANNA, resolving illeus. Continue bowel regimen. (Caity Garcias MD) Merline Agrawal Feb 21, 2017 11:30 Caity Garcias MD Feb 21, 2017 14:47
--- NOTE | 2017-02-21 11:38 | HHI.CCPN ---
Subjective Remarks/Hospital Course Hospital Course: This is a 71-year-old Afro-Mongolian female. Date of admission 02/04/2017. Past medical history includes diastolic congestive heart failure, COPD, chronic atrial fibrillation, diabetes, hypertension and history of MSSA infection on cefazolin. Patient presents to [facility] initially on 02/04 with left breast swelling. In November/2016, patient was diagnosed with endocarditis and AICD infection. At that time, Pacemaker removed . Since that time she's had increasing swelling in her left breast and currently has an abscess of the location 11.8 cm in size. She also complained of Shortness of breath. This is associated with a self-reported 50 pound weight gain with bilateral lower extremity edema and significant stomach swelling. She also reports shortness of breath. She was treated with cefazolin at home include 01/29/2017. After cessation of treatment, she noted The patient reports a significant increase in her left breast swelling over the past 2-3 days. She states the area is tender to palpation and painful. She does not have a leukocytosis. Breast ultrasound showed a complex cystic lesion measuring up to 11.8 cm in the left breast that could represent a fluid collection or old hematoma. Today in 02/10, patient ID of her left breast by Dr. Joy. 300 crystalloid. EBL 50. Urine output 60. Patient received 40 mg torsemide IV post procedure. Her oxygenation requirements increasing currently on BiPAP. She is currently unresponsive when seen in [facility]. She'll be intubated at the present time Subjective: 02/11: intubated overnight. now on vasopressors with fever. likely mixed cardiogenic/septic shock from a combination of volume overload and breast abscess. Also has significant bilateral pleural effusion, left > right by CXR and bedside ultrasound. significantly up in weight. respiratory failure likely from volume overload, although worsening acute kidney injury and shock complicates picture. 02/12: despite aggressive diuresis increasing to bumex drip, still net + and poor diuresis. may require dialysis if no improvement. remains borderline hypoglycemic. renal function continues to worsen. no BM x 2 days. peak pressures on vent elevated. CT chest yesterday without significant effusions but completely collapsed LLL, likely a large component of atelectasis from severe cardiomegaly, but cannot rule out pna. no meaningful improvements from yesterday. 11/16: much improved diuresis yesterday and now net negative 1.7L/24h. Cr still uptrending, but only slightly. pulmonary compliance also has improved with overnight APRV. discussed care with Dr. Garcia and we both agree that inhaled epoprostenol may be of benefit in assisting with RV function to mitigate severe TR and assist with diuresis and hemodynamics. ammonia up slightly, although now having regular bowel movements. 02/14: good diuresis. Cr plateaued. LFTs and T bili slightly worse. ammonia stable without significant improvements. also had 1 episode of emesis today: tube feeds on hold and NGT to LIWS. 02/15: Heart is shaped like a bowling ball. Gas exchange much improved, continued diuresis. Residual NG aspirate > 500 - will reconnect to LIS, start reglan. Decrease T-high to 4.5, add pressure support 5. Lighten fentanyl. Diarrhea remains problematic. 02/16: blood pressure improved. bnp still uptrending. good diuresis. art line removed for non-functioning. 02/17: still diuresing with > 2L/24h negative balance. Cr still downtrending. bp still stable. tolerated initiation of sildenafil. persists with high gastric residuals. KUB with adynamic ileus. starting to weakly follow commands this morning, but still very somnolent. 02/18: continues to diurese on bumex drip with albumin and diamox. Cr continues to downtrend. bp stable. tolerating sildenafil. ileus persists. no tolerance of gastric tube feeds at all. no following commands this morning. If we look overall clinically a week ago until today, no meaningful improvements: continues to get low tidal volumes, atelectasis, and fails any attempt at SBT quickly and continues to require APRV to maintain adequate lung expansion. cardiac function no better despite 12L diuresis. kidneys are some improved but not significant, and mental status is very poor and metabolic encephalopathy is severe. With this many organs dysfunctional, this is a very poor prognosis. I had a long talk with the family where I expressed my concerns. The and medical decision maker clearly states in front of the whole family and palliative care that he would not want CPR or shocking or anything like that, as this would only prolong suffering, but he is having trouble with the decision to withdraw care, and would like to think about it and give a final decision about palliation vs. trach/peg and aggressive care tomorrow. 02/19: UO adequate but reduced over past few hours, labs today are pending. Changed mode to PC/AC. Attempted CPAP, failed due to low tidal volumes. Following commands, but very weak. 02/20: Worsening clinically with worsening abdominal distention/ileus creatinine 3.1 today remains oliguric. New fever Tmax 101, KUB shows right lower lung infiltrate which is new. Pancultured started on cefepime. Nothing by mouth to place NG tube to intermittent wall suction. GI consult placed. GI has ordered Relistor 02/21: Patient still requiring high inspiratory pressure support on PCV. Unable to tolerate CPAP. Abdominal distention slightly improved but still tense , KUB shows slight improvement in ileus. Has NGT to IWS and rectal tube. Creatinine is 3.4 today but 750 mL urine output in 24 hours. No emergency indication for hemodialysis at this time. Urine culture growing Streptococcus on Diflucan, ID reconsultation for new sepsis Objective Vital Signs Date Time Temp Pulse Resp B/P (MAP) Pulse Ox O2 Delivery O2 Flow Rate FiO2 02/21/17 09:20 40 02/21/17 08:00 66 02/21/17 08:00 98.2 16 174/70 (104) 100 02/21/17 07:00 Mechanical Ventilator Intake and Output 02/21/17 02/21/17 02/22/17 08:00 16:00 00:00 Intake Total 936 ml Output Total 800 ml Balance 136 ml Result Diagram: 02/21/17 0530 02/21/17 0530 Imaging Last Impressions Head CT 02/11/17 0000 Signed Impressions: Service Date/Time: Saturday, February 11, 2017 04:32 - CONCLUSION: Normal examination. Tyrone Simmons MD Renal Ultrasound 02/10/17 0000 Signed Impressions: Service Date/Time: Friday, February 10, 2017 23:06 - CONCLUSION: Normal examination. No evidence of obstruction or hydronephrosis.. Tyrone Simmons MD Chest X-Ray 02/10/17 0000 Signed Impressions: Service Date/Time: Friday, February 10, 2017 21:41 - CONCLUSION: 1. ET tube 1 cm from the anai. This can be pulled back 2 cm to be in a better position. 2. Cardiomegaly. Multiple electronic devices are seen over the chest. 3. Diffuse pulmonary consolidations likely representing edema. There is further atelectasis or consolidation the bases and probably bilateral effusions. Gregory Perry MD Breast Ultrasound 02/03/17 0000 Signed Impressions: Service Date/Time: Friday, February 03, 2017 18:49 - CONCLUSION: Complex cystic lesion measuring up to 11.8 cm centered at the 12:00 position left breast. Given the clinical history of recent procedure in this area this could represent a noninfected or infected fluid collection. Given the complex internal architecture, percutaneous drainage will likely not be successful. Once the patient's condition permits, consider outpatient diagnostic mammogram and ultrasound followup. Gregory Bob MD ADDENDUM: Another consideration given the prior CT appearance and current imaging findings is an old hematoma. Gregory Bob MD Abdomen/Pelvis CT 02/03/17 0000 Signed Impressions: Service Date/Time: Friday, February 03, 2017 17:35 - CONCLUSION: 1. CT findings characteristic of right heart insufficiency with diffuse but stable anasarca in the visible soft tissues and leaves of the mesentery as well as a small amount of ascites. Intrahepatic IVC is markedly dilated. 2. Previously identified bilateral pleural effusions are significantly improved with only a small amount of fluid on the left. There is some persistent atelectasis in the left base. 3. Heart size remains prominent. 4. Otherwise stable. Mt Alvarez MD Objective Remarks GENERAL: 71-year-old a female, lying in bed, intubated, only on Fentanyl SKIN: Warm and dry. No rash HEAD: Atraumatic. Normocephalic. EYES: Pupils equal and round bilaterally reactive. No conjunctival icterus. No injection or drainage. ENT: No nasal bleeding or discharge. Mucous membranes dry. NECK: Trachea midline. orotracheally intubated CARDIOVASCULAR: Regular rate and rhythm RESPIRATORY: PC/AC with equal air entry bilateral THORAX - left breast less indurated than before. LifeVest still in place. GASTROINTESTINAL: Abdomen tense distended. NGT output remains high. Has rectal tube in place MUSCULOSKELETAL: Extremities 1+ lower extremity edema. No obvious deformities. NEUROLOGICAL: Opens eyes intermittently following commands on 4 extremities. off sedation except fentanyl A/P Assessment and Plan Assessment: 71yF with h/o ICM, prior EF reported at 15%, s/p placement of AICD, recovery of LVEF to 60%, AICD infection s/p lead extraction, now with breast abscess, septic shock, volume overload, acute systolic CHF exacerbation, acute hypoxic respiratory failure. still very critically ill and unable to measurably improve her organs. Family to decide tomorrow trach/peg vs. hospice by tomorrow. DNR now Continuing diuresis with Bumex and Diamox. continue NPO. Off pathway with little improvements. Now with new fever and pneumonia, worsening renal failure and ileus. Prognosis very poor Neuro/Psych: Metabolic Encephalopathy - secondary to co2 retention and sepsis. Hyperammonemia Hypoactive delirium Remains off all sedation for several days, only on fentanyl for vent synchrony Due to ileus I'll discontinue fentanyl and place on propofol Goal of RASS -0. CT brain 02/10- negative for acute disease. Amantadine for improved wakefulness. Modafinil for alertness. CV: Acute CHF exacerbation: mixed type, including systolic, diastolic, and valvulopathy from severe tricuspid regurgitation. History arrhythmia/ chronic atrial fibrillation - LifeVest since 11/2016 Hypertension Coronary disease status post stent 3 Moderate to severe TR Acute intravascular volume overload Cor Pulmonale 2-D echocardiogram revealed EF of 60%. Severe TR. PAP 33 mmHg, bedside critical care echo 02/11: moderately depressed LV function. clinically significant TR. Rpt limited echo to evaluate LVEF and TR holding metoprolol, enalapril, amlodipine for hypotension Previously on bumetanide 2 mg daily with KCl 10 mEq twice a day. continue bumex drip to 2mg/hr. diamox 500mg iv q8h. Now UO improving, no emergency indication for HD continue concentrated albumin. Continue amiodarone 200 mg by mouth daily Dr. Feliciano - cardiology and Dr. Garcia, CT surgery following hold spironolactone given renal function. hold Sacibutril/Valsartan continue sildenafil 20mg po q8hr carvedilol 3.125 mg po q12h. Resp: Acute hypoxic respiratory failure Compressive atelectasis/consolidation LLL New RLL HCAP pneumonia Acute pulmonary edema Severe acute intravascular volume overload COPD - 3 L oxygen dependent PRVC/AC Failing CPAP due to low TV Ventilator bundle Albuterol/ipratropium aerosols every 4 hours albuterol aerosols every 2 hours. Dyspnea wean fio2 for goal spo2 > 90% CT chest 02/11: moderate right pleural effusion. densely consolidated LLL. severe cardiomegaly. KUB 02/20 New RLL infiltrate, ileus no drainable effusion which is large enough to prevent pulmonary mechanics. GI: Severe Ileus Abdominal Distension Hyperammonemia Acute protein calorie malnutrition - moderate Acute intravascular volume overload Obesity Constipation NGT to LIWS. Rectal tube, GI following. Recd Relistor 02/20 Pantoprazole for GI prophylaxis Docusate sodium/senna for bowel regimen lactulose qid for elevated ammonia which is likely secondary to early congestive hepatopathy diuresis as above. continue aggressive bowel regimen: - senna/colace - miraLAX BID - lactulose QID - dulcolax supp daily - reglan 5mg iv q8h : Acute Kidney failure worsening Replace ellis today. forced diuresis as above kidney injury likely multifactorial and combination of shock and venous congestion from volume overload. lungs and heart function require urgent forced diuresis, despite kidney injury. Start HD per Dr. Love if family wants to continue aggressive care Endo: Diabetes mellitus Hypoglycemia Hold insulin detemir 27 units at night. Currently on sliding scale insulin with NovoLog low regimen every 6 hours d10w @ 42cc/hr. change to D5NS due to hyponatremia maintain dextrose source while NPO. Renal: Acute kidney injury in the setting of chronic kidney disease stage III worsening Followed by nephrology/by Dr. Loev Avoid nephrotoxic drugs Heme: Normocytic anemia Chronic warfarin use Currently holding warfarin 4 mg daily. CBC and INR daily Does not meet transfusion threshold at this time Currently on iron sulfate 325 mg by mouth twice a day-holding due to ileus ID: Fever/RLL infiltrate/HCAP UTI with Florina and Streptococcus Escherichia coli UTI History of MSSA abscess to left breast Pertinent cultures 02/20 german culture 02/08 - urine - Enterobacter 02/04 - blood cultures 2- no growth 02/03 - urine - Escherichia coli Followed by Dr. Tamayo/ID, reconsult 04/23 Started cefepime and single dose vanc 02/20 FEN: Replace electrolytes as clinically indicated MSK: Postop day #12 I&D left breast hematoma by Dr. Garcia PT evaluate and treat Access - Utilize peripheral IV. Continue to use right upper extremity single lumen PICC line. Central line if indicated Prophylaxis - GI - pantoprazole - DVT - SCD/SQH 5000 q12h. Overall impression: overall likely poor prognosis given acute exacerbation of multiple chronic medical problems. Critically ill now, took a turn for the worse now with new sepsis right lower lobe infiltrate worsening acute kidney injury and worsening ileus prognosis very poor. Family to make decision on hospice versus continued aggressive care today CCT 35 MIN Ashley Jenkins MD Feb 21, 2017 11:38
--- NOTE | 2017-02-21 12:02 | HHI.HCPN ---
Reason for visit a. To assist with evaluation and management of symptoms including:dyspnea, debility b. To assist medical decision maker(s) with: better understanding of current medical conditions; weighing benefits/burdens of medical treatment options; making medical treatment decisions. Subjective/Interval History Patient is a 71 year old female with a past medical history significant for CHF , chronic atrial fibrillation anticoagulated on Coumadin, COPD on home oxygen, HTN, and diabetes mellitus who presented to the ED after being evaluated by Dr. Feliciano in the office on 02/04/17 for a erythematous, edematous, left breast where her AICD was recently removed secondary to infection with endocarditis. Upon presentation patient complained of shortness of breath, abdominal distention, lower extremity edema, and a 50 pound weight gain over the past month. The patient presented to the ED on 11/28/16 for left breast pain and swelling, at that time she was discharged from the emergency department with a prescription for clindamycin. The patient returned to ED on 12/10/16 and was hospitalized until 12/27/16 for severe sepsis and left breast cellulitis, during that hospitalization the patient was found to have blood cultures positive for MSSA, underwent a AICD and lead extraction on 12/18/16, was found to iron deficiency anemia, and acute kidney injury. The patient was discharged home with home oxygen and a LifeVest. 02/07/17: Cardiothoracic surgery reconsulted to evaluate left chest hematoma, 02/10/17: patient taken to the OR for I&D of left breast hematoma, 600mL fluid drained from chest wall/left breast. Critical care management consulted due to respiratory compromise post operatively, patient originally requiring respiratory support via BiPAP, however she became unresponsive, hypotensive likely secondary to cardiogenic/septic shock, and was subsequently intubated, placed on vasopressors. Patient continued to have a complicated ICU stay over the following week secondary to fluid volume overload , CHF, respiratory failure, ongoing renal failure, liver failure, encephalopathy , and adynamic ileus. Patient seen today for follow up regarding goals of care, examined in room, no family at bedside. Patient remains intubated and mechanically ventilated, patient has been unable to tolerate SBTs thus far, patient is lethargic, opens eyes spontaneously, weakly follows some simple one step commands. Abdominal XR today revealed interval improvement in bowel gas pattern, abdomen is less distended and softer to palpation. Palliative Care will continue to assist with symptom management and to discuss with the patient's family the benefits and burdens of her current illnesses and the options regarding future care. Family plans to come in today with decision regarding trach/PEG/aggressive goals of care versus transitioning to comfort focused goals of care, verbalized previously they wanted to wait until after the holiday to make any decisions. If family does indeed decide to move forward with aggressive goals of care nephrology is recommending hemodialysis be initiated as well. Family/friend interactions Meeting with patient's two daughters Desi and Afsaneh in the conference room, also in attendance the patient's sister, nephew, and niece. Updated on patient' s current clinical status, discussed prognosis, aggressive versus transitioning to comfort focused goals. Both daughters verbalized their goals of care for their mother are comfort focused and they would like to complete withdrawal of artificial life support tomorrow. Discussed Hospice philosophy and benefits, they verbalized they would like Hospice to be involved following withdrawal of artificial life support. Patient's Damaris Dailey was provided a telephone update, also discussed and confirmed was his choice to opt out of medical decision making for his . Advance Directives Living Will: Never completed Health Care Surrogate: Never completed Durable Power of Manager Sap: Never completed Objective Vital Signs Date Time Temp Pulse Resp B/P (MAP) Pulse Ox O2 Delivery O2 Flow Rate FiO2 02/21/17 10:00 40 02/21/17 10:00 71 02/21/17 09:20 40 02/21/17 08:00 40 02/21/17 08:00 66 02/21/17 08:00 98.2 71 16 174/70 (104) 100 02/21/17 07:43 100 40 02/21/17 07:00 100 Mechanical Ventilator 40 02/21/17 06:00 40 02/21/17 06:00 76 02/21/17 04:00 76 02/21/17 04:00 40 02/21/17 04:00 98.9 76 20 132/59 (83) 100 02/21/17 03:15 100 40 02/21/17 02:00 66 02/21/17 02:00 40 02/21/17 00:00 40 02/21/17 00:00 78 02/21/17 00:00 100 40 02/21/17 00:00 99.4 78 16 154/76 (102) 100 02/20/17 22:00 40 02/20/17 22:00 70 02/20/17 20:46 99 40 02/20/17 20:00 99.0 68 16 129/63 (85) 100 02/20/17 20:00 40 02/20/17 20:00 68 02/20/17 19:00 100 Mechanical Ventilator 40 02/20/17 18:15 40 02/20/17 18:14 74 02/20/17 17:36 40 02/20/17 16:00 76 02/20/17 16:00 100.0 76 16 128/58 (81) 100 02/20/17 15:55 40 02/20/17 15:53 99 40 02/20/17 14:00 73 02/20/17 12:00 98.4 76 16 118/57 (77) 100 02/20/17 12:00 76 02/20/17 12:00 40 Intake & Output 02/21/17 02/21/17 06:59 18:59 Intake Total 936 ml Output Total 800 ml Balance 136 ml IV Total 936 ml Output Urine Total 500 ml Stool Total 200 ml Gastric Drainage Total 100 ml . Physical Exam CONSTITUTIONAL/GENERAL: This is a critically ill elderly appearing female patient, intubated, and mechanically ventilated. TUBES/LINES/DRAINS: PICC line RUE, PIV x1, ellis catheter SKIN: No jaundice, rashes, or lesions. Ecchymoses on upper extremities. Left breast incision covered with bandage. Skin temperature appropriate. Not diaphoretic. CARDIOVASCULAR: Regular rate and rhythm without murmurs, gallops, or rubs. Peripheral pulses symmetric. RESPIRATORY/CHEST: Symmetric, mechanically ventilated. Course crackles throughout. Breath sounds equal bilaterally. GASTROINTESTINAL: Abdomen firm, distended. Bowel sounds hypoactive. GENITOURINARY: Ellis catheter in place draining clear yellow urine. MUSCULOSKELETAL: Extremities without clubbing, cyanosis. BLE edema 2+. NEUROLOGICAL:Lethargic.Opens eyes spontaneously. Follows simple one step commands. PSYCHIATRIC: Unable to assess secondary to clinical condition. . Diagnostic Tests Laboratory Laboratory Tests Test 02/18/17 20:34 02/19/17 12:00 02/20/17 08:37 02/21/17 05:30 Potassium Level 3.4 MEQ/L (3.5-5.1) 3.9 MEQ/L (3.5-5.1) 3.5 MEQ/L (3.5-5.1) 3.1 MEQ/L (3.5-5.1) Blood Urea Nitrogen 35 MG/DL (7-18) 40 MG/DL (7-18) 43 MG/DL (7-18) Creatinine 2.48 MG/DL (0.50-1.00) 3.10 MG/DL (0.50-1.00) 3.30 MG/DL (0.50-1.00) Random Glucose 87 MG/DL (74-106) 79 MG/DL (74-106) 97 MG/DL (74-106) Total Protein 7.9 GM/DL (6.4-8.2) 7.5 GM/DL (6.4-8.2) 8.0 GM/DL (6.4-8.2) Albumin 4.9 GM/DL (3.4-5.0) 4.5 GM/DL (3.4-5.0) 5.0 GM/DL (3.4-5.0) Calcium Level 9.4 MG/DL (8.5-10.1) 8.8 MG/DL (8.5-10.1) 9.1 MG/DL (8.5-10.1) Alkaline Phosphatase 45 U/L (45-117) 44 U/L (45-117) 44 U/L (45-117) Aspartate Amino Transf (AST/SGOT) 10 U/L (15-37) 11 U/L (15-37) 13 U/L (15-37) Alanine Aminotransferase (ALT/SGPT) 7 U/L (10-53) 9 U/L (10-53) 9 U/L (10-53) Total Bilirubin 1.8 MG/DL (0.2-1.0) 1.6 MG/DL (0.2-1.0) 1.6 MG/DL (0.2-1.0) Sodium Level 131 MEQ/L (136-145) 131 MEQ/L (136-145) 130 MEQ/L (136-145) Chloride Level 93 MEQ/L (98-107) 94 MEQ/L (98-107) 92 MEQ/L (98-107) Carbon Dioxide Level 30.3 MEQ/L (21.0-32.0) 29.7 MEQ/L (21.0-32.0) 28.3 MEQ/L (21.0-32.0) Anion Gap 8 MEQ/L (5-15) 7 MEQ/L (5-15) 10 MEQ/L (5-15) Estimat Glomerular Filtration Rate 23 ML/MIN (>89) 18 ML/MIN (>89) 17 ML/MIN (>89) White Blood Count 7.6 TH/MM3 (4.0-11.0) 7.3 TH/MM3 (4.0-11.0) Red Blood Count 3.19 MIL/MM3 (4.00-5.30) 3.25 MIL/MM3 (4.00-5.30) Hemoglobin 8.8 GM/DL (11.6-15.3) 8.9 GM/DL (11.6-15.3) Hematocrit 27.7 % (35.0-46.0) 28.0 % (35.0-46.0) Mean Corpuscular Volume 86.7 FL (80.0-100.0) 86.3 FL (80.0-100.0) Mean Corpuscular Hemoglobin 27.5 PG (27.0-34.0) 27.4 PG (27.0-34.0) Mean Corpuscular Hemoglobin Concent 31.7 % (32.0-36.0) 31.7 % (32.0-36.0) Red Cell Distribution Width 20.7 % (11.6-17.2) 21.1 % (11.6-17.2) Platelet Count 247 TH/MM3 (150-450) 248 TH/MM3 (150-450) Mean Platelet Volume 7.3 FL (7.0-11.0) 7.5 FL (7.0-11.0) Neutrophils (%) (Auto) 65.8 % (16.0-70.0) 73.4 % (16.0-70.0) Lymphocytes (%) (Auto) 12.7 % (9.0-44.0) 9.4 % (9.0-44.0) Monocytes (%) (Auto) 18.8 % (0.0-8.0) 15.0 % (0.0-8.0) Eosinophils (%) (Auto) 2.1 % (0.0-4.0) 1.7 % (0.0-4.0) Basophils (%) (Auto) 0.6 % (0.0-2.0) 0.5 % (0.0-2.0) Neutrophils # (Auto) 5.0 TH/MM3 (1.8-7.7) 5.4 TH/MM3 (1.8-7.7) Lymphocytes # (Auto) 1.0 TH/MM3 (1.0-4.8) 0.7 TH/MM3 (1.0-4.8) Monocytes # (Auto) 1.4 TH/MM3 (0-0.9) 1.1 TH/MM3 (0-0.9) Eosinophils # (Auto) 0.2 TH/MM3 (0-0.4) 0.1 TH/MM3 (0-0.4) Basophils # (Auto) 0.0 TH/MM3 (0-0.2) 0.0 TH/MM3 (0-0.2) CBC Comment AUTO DIFF DIFF FINAL Differential Comment AUTO DIFF CONFIRMED Result Diagram: 02/21/1730 02/21/17 0530 Microbiology Microbiology Date/Time Source Procedure Growth Status 02/20/17 08:37 Blood Peripheral Aerobic Blood Culture - Preliminary NO GROWTH IN 1 DAY Resulted 02/20/17 08:37 Blood Peripheral Anaerobic Blood Culture - Preliminary NO GROWTH IN 1 DAY Resulted 02/20/17 08:33 Blood Peripheral Aerobic Blood Culture - Preliminary NO GROWTH IN 1 DAY Resulted 02/20/17 08:33 Blood Peripheral Anaerobic Blood Culture - Preliminary NO GROWTH IN 1 DAY Resulted 02/20/17 08:45 Sputum Endotracheal Gram Stain - Final Resulted 02/20/17 08:45 Sputum Endotracheal Sputum Culture - Preliminary HEAVY GROWTH NORMAL RESPIRATORY MARGARITA... Resulted 02/20/17 08:45 Urine Catheterized Urine Urine Culture - Preliminary Streptococcus Species Florina Albicans Resulted Imaging Last 72 hours Impressions Chest X-Ray 02/21/17 0600 Signed Impressions: Service Date/Time: Tuesday, February 21, 2017 02:23 - CONCLUSION: 1. Rotated exam with dense consolidation now noted at the left lung base with air bronchograms. 2. Milder patchy infiltrate in the right lung base. Sergio Haro MD Abdomen X-Ray 02/21/17 0600 Signed Impressions: Service Date/Time: Tuesday, February 21, 2017 02:28 - CONCLUSION: 1. Interval placement of small bore rectal catheter. 2. Interval improvement in bowel gas pattern. 3. Dense consolidation remains in the left lung base. Sergio Haro MD Abdomen X-Ray 02/20/17 0000 Signed Impressions: Service Date/Time: January 05:35 - CONCLUSION: 1. Similar degree of gaseous distention of small and large bowel when compared to prior KUB. 2. New consolidative infiltrate in the medial right lower lung and persistent consolidation left lower lung. Quinn Marx MD Chest X-Ray 02/19/17 0000 Signed Impressions: Service Date/Time: Sunday, February 19, 2017 08:23 - CONCLUSION: Tubes and catheter in good position. Minimal bilateral consolidations unchanged . Tyrone Simmons MD . Procedures 02/10/17: I&D left breast 02/10/17:Intubated Assessment and Plan Disease Oriented Problem List: (1) CHF (congestive heart failure) (2) Respiratory failure with hypercapnia (3) Anasarca (4) AICD generator infection Symptom Scale: (1) Debility (2) Dyspnea Pertinent Non-Medical Issues Psychosocial: Patient is originally from [place], she is , she had five children, only two daughters still living. Spiritual: [employer]. Legal: None known. Ethical issues impacting care: None known. Important Contacts Damaris Dailey () [phone] Desi Burrell (daughter) [phone] . Prognosis Patient has a long standing history of cardiomyopathy, CHF, COPD, now with respiratory failure, ARF, liver failure, and adynamic ileus. Patient is critically ill, intubated on mechanical ventilation in multiorgan failure. Due to patient's advanced age, multiple comorbidities, and debilitated status she is at an ongoing risk for complications/setbacks. Code Status: No Code Plan Plan * Legal decision maker: Patient is currently not capacitated to make informed medical decisions independently. It is unclear if she will regain capacity. Patient does not have any previous written advanced directives, per [place] statutes in the absence of written advanced directives health care decision making would fall to her next of kin which is her . Patient's Damaris Dailey has opted out of medical decision making. per [place] statutes decision making would fall to the patient's two adult daughters, Afsaneh and Desi who have both confirmed they will serve as their mother's health care proxies. * Goals: Comfort focused. Family plans to withdraw artificial life support tomorrow Friday02/22/17 when the remaining family arrives from out of town. * Exhibit signed and on the chart. Patient's family has taken home the exhibit designated for family to sign to review, they were instructed not to fill it out until they return to the hospital tomorrow so that a staff can witness their signatures. * Meeting with patient's two daughters Desi and Afsaneh in the conference room , also in attendance the patient's sister, nephew, and niece. Updated on patient 's current clinical status, discussed prognosis, aggressive versus transitioning to comfort focused goals. Both daughters verbalized their goals of care for their mother are comfort focused and they would like to complete withdrawal of artificial life support tomorrow. Discussed Hospice philosophy and benefits, they verbalized they would like Hospice to be involved following withdrawal of artificial life support. * Patient's Damaris Daiely was provided a telephone update, also discussed and confirmed was his choice to opt out of medical decision making for his . * CODE STATUS: DNR. * SYMPTOMS: --Dyspnea: Multifactorial, secondary to CHF, COPD, fluid volume overload, respiratory failure, etc. Patient is currently intubated and mechanically ventilated. No recommendations at this time. --Debility: Patient has had multiple complicated hospital stays in recent months in addition to multiple comorbidities already present contributing to debilitated status. Patient is currently critically ill and unable to participate in any PT/OT. No recommendations at this time. * Palliative care will continue to follow during hospital course as condition evolves, to assist patient/decision-maker with understanding of medical conditions, weighing benefits/burdens of treatment options, for clarification of goals of treatment. Additionally will assist with any symptoms of palliative concern Attestation To help prompt me to consider important information that might be impacting today's encounter and assessment, information from prior notes written by myself or my colleagues may have been "brought forward" into today's note. My signature on this note, however, is an attestation that I personally performed the exam, history, and/or decision-making noted today, and, unless otherwise indicated, the interactions with patient, family, and staff as well as the review of records all occurred today. I also attest that the listed assessment and stated plan reflect my best clinical judgment today based on the combination of historical information, prior notes, and today's exam/ interactions. When time spent is documented, it refers only to time spent today by the signer, or if indicated, combined time spent today by collaborating physician/nurse practitioner. Sunshine Cagle Feb 21, 2017 12:02
[2017-02-21] MEDS: PROPOFOL 1000 MG/100 ML INJ 100 ML IV PRN (12:53)
--- NOTE | 2017-02-21 15:11 | ECHRPT ---
Indication: EF assessment of CHF CONCLUSIONS The left ventricular systolic function is low normal with an estimated ejection fraction in the rang e of 50- 55%. Wall thickness is measured at the upper limits of normal. Normal left ventricular size. There is severe tricuspid regurgitation. The estimated pulmonary arterial pressure is 59 mmHg. BP: 132 / 59 HR: 76 Rhythm: Sinus MEASUREMENTS (Male / Female) Normal Values Technical Quality:Good 2D ECHO LV Diastolic Diameter PLAX 5.4 cm 4.2 - 5.9 / 3.9 - 5.3 cm LV Systolic Diameter PLAX 4.3 cm IVS Diastolic Thickness 1.2 cm 0.6 - 1.0 / 0.6 - 0.9 cm LVPW Diastolic Thickness 1.2 cm 0.6 - 1.0 / 0.6 - 0.9 cm LV Relative Wall Thickness 0.4 DOPPLER TR Peak Velocity 350.0 cm/s TR Peak Gradient 49.0 mmHg Right Atrial Pressure 10.0 mmHg Pulmonary Artery Systolic Pressu 59.0 mmHg Right Ventricular Systolic Press 59.0 mmHg FINDINGS LEFT VENTRICLE The left ventricular systolic function is low normal with an estimated ejection fraction in the rang e of 50- 55%. Wall thickness is measured at the upper limits of normal. Normal left ventricular size. RIGHT VENTRICLE Normal right ventricular size and systolic function. LEFT ATRIUM The left atrial size is normal. RIGHT ATRIUM The right atrial size is normal. ATRIAL SEPTUM Normal atrial septal thickness without atrial level shunting by limited color doppler interrogation. AORTA The aortic root and proximal ascending aorta are normal in size on limited imaging. MITRAL VALVE Structurally normal mitral valve. No mitral valve stenosis or regurgitation. AORTIC VALVE Trileaflet aortic valve. No aortic valve stenosis or regurgitation. TRICUSPID VALVE There is severe tricuspid regurgitation. The estimated pulmonary arterial pressure is 59 mmHg. PULMONARY VALVE No pulmonary valve regurgitation or stenosis. VESSELS The inferior vena cava is normal in size. PERICARDIUM No pericardial effusion. Tyrone Walters MD, FACC (Electronically Signed) Final Date:21 February 2017 15:11
[2017-02-21] MEDS: BUMETANIDE INJ 100 ML IV SCH (15:25)
--- NOTE | 2017-02-21 18:21 | HHI.IDPN ---
Subjective Subjective Remarks reconsulted by Dr Jenkins 2/2 fever, infiltrate RN reports abd distention, high residuals TF off Temp 100,.1 CXR from 2day b/l infiltrates L>R Antibiotics cefepime - started on 02/20 Allergies: Coded Allergies: penicillin G (Unverified Allergy, Severe, rash, 12/31/16) benazepril (Unverified Allergy, Mild, 12/31/16) HUMBLE inhibitor angioedema, swelling of the face lips and anterior tongue captopril (Unverified Allergy, Mild, 12/31/16) HUMBLE inhibitor angioedema, swelling of the face lips and anterior tongue enalaprilat (Unverified Allergy, Mild, 12/31/16) HUMBLE inhibitor angioedema, swelling of the face lips and anterior tongue fosinopril (Unverified Allergy, Mild, 12/31/16) HUMBLE inhibitor angioedema, swelling of the face lips and anterior tongue lisinopril (Unverified Allergy, Mild, 12/31/16) HUMBLE inhibitor angioedema, swelling of the face lips and anterior tongue quinapril (Unverified Allergy, Mild, 12/31/16) HUMBLE inhibitor angioedema, swelling of the face lips and anterior tongue Uncoded Allergies: NON COMPATIBLE PACEMAKER (Adverse Reaction, Severe, MRI PRECAUTION / PACEMAKER, 11/03/14) MRI PRECAUTION. PACEMAKER Objective . Vital Signs Date Time Temp Pulse Resp B/P (MAP) Pulse Ox O2 Delivery O2 Flow Rate FiO2 02/21/17 16:57 97 40 02/21/17 16:00 40 02/21/17 16:00 97.7 62 16 165/70 (101) 100 02/21/17 16:00 63 02/21/17 14:00 40 02/21/17 14:00 60 02/21/17 12:23 100 40 02/21/17 12:00 71 02/21/17 12:00 98.6 64 16 153/58 (89) 100 02/21/17 10:00 40 02/21/17 10:00 71 02/21/17 09:20 40 02/21/17 08:00 40 02/21/17 08:00 66 02/21/17 08:00 98.2 71 16 174/70 (104) 100 02/21/17 07:43 100 40 02/21/17 07:00 100 Mechanical Ventilator 40 02/21/17 06:00 40 02/21/17 06:00 76 02/21/17 04:00 76 02/21/17 04:00 40 02/21/17 04:00 98.9 76 20 132/59 (83) 100 02/21/17 03:15 100 40 02/21/17 02:00 66 02/21/17 02:00 40 02/21/17 00:00 40 02/21/17 00:00 78 02/21/17 00:00 100 40 02/21/17 00:00 99.4 78 16 154/76 (102) 100 02/20/17 22:00 40 02/20/17 22:00 70 02/20/17 20:46 99 40 02/20/17 20:00 99.0 68 16 129/63 (85) 100 02/20/17 20:00 40 02/20/17 20:00 68 02/20/17 19:00 100 Mechanical Ventilator 40 02/20/17 18:15 40 02/20/17 18:14 74 02/21/17 02/21/17 02/22/17 15:00 23:00 07:00 Intake Total 700 ml 100 ml Balance 700 ml 100 ml IV Total 700 ml 100 ml . Laboratory Tests Test 02/20/17 08:37 02/21/17 05:30 White Blood Count 7.6 TH/MM3 7.3 TH/MM3 Red Blood Count 3.19 MIL/MM3 3.25 MIL/MM3 Hemoglobin 8.8 GM/DL 8.9 GM/DL Hematocrit 27.7 % 28.0 % Mean Corpuscular Volume 86.7 FL 86.3 FL Mean Corpuscular Hemoglobin 27.5 PG 27.4 PG Mean Corpuscular Hemoglobin Concent 31.7 % 31.7 % Red Cell Distribution Width 20.7 % 21.1 % Platelet Count 247 TH/MM3 248 TH/MM3 Mean Platelet Volume 7.3 FL 7.5 FL Neutrophils (%) (Auto) 65.8 % 73.4 % Lymphocytes (%) (Auto) 12.7 % 9.4 % Monocytes (%) (Auto) 18.8 % 15.0 % Eosinophils (%) (Auto) 2.1 % 1.7 % Basophils (%) (Auto) 0.6 % 0.5 % Neutrophils # (Auto) 5.0 TH/MM3 5.4 TH/MM3 Lymphocytes # (Auto) 1.0 TH/MM3 0.7 TH/MM3 Monocytes # (Auto) 1.4 TH/MM3 1.1 TH/MM3 Eosinophils # (Auto) 0.2 TH/MM3 0.1 TH/MM3 Basophils # (Auto) 0.0 TH/MM3 0.0 TH/MM3 CBC Comment AUTO DIFF DIFF FINAL Differential Comment AUTO DIFF CONFIRMED Laboratory Tests Test 02/20/17 08:37 02/21/17 05:30 Blood Urea Nitrogen 40 MG/DL 43 MG/DL Creatinine 3.10 MG/DL 3.30 MG/DL Random Glucose 79 MG/DL 97 MG/DL Total Protein 7.5 GM/DL 8.0 GM/DL Albumin 4.5 GM/DL 5.0 GM/DL Calcium Level 8.8 MG/DL 9.1 MG/DL Alkaline Phosphatase 44 U/L 44 U/L Aspartate Amino Transf (AST/SGOT) 11 U/L 13 U/L Alanine Aminotransferase (ALT/SGPT) 9 U/L 9 U/L Total Bilirubin 1.6 MG/DL 1.6 MG/DL Sodium Level 131 MEQ/L 130 MEQ/L Potassium Level 3.5 MEQ/L 3.1 MEQ/L Chloride Level 94 MEQ/L 92 MEQ/L Carbon Dioxide Level 29.7 MEQ/L 28.3 MEQ/L Anion Gap 7 MEQ/L 10 MEQ/L Estimat Glomerular Filtration Rate 18 ML/MIN 17 ML/MIN Microbiology Date/Time Source Procedure Growth Status 02/20/17 08:37 Blood Peripheral Aerobic Blood Culture - Preliminary NO GROWTH IN 1 DAY Resulted 02/20/17 08:37 Blood Peripheral Anaerobic Blood Culture - Preliminary NO GROWTH IN 1 DAY Resulted 02/20/17 08:33 Blood Peripheral Aerobic Blood Culture - Preliminary NO GROWTH IN 1 DAY Resulted 02/20/17 08:33 Blood Peripheral Anaerobic Blood Culture - Preliminary NO GROWTH IN 1 DAY Resulted 02/20/17 08:45 Sputum Endotracheal Gram Stain - Final Resulted 02/20/17 08:45 Sputum Endotracheal Sputum Culture - Preliminary HEAVY GROWTH NORMAL RESPIRATORY VERA... Resulted 02/20/17 08:45 Urine Catheterized Urine Urine Culture - Preliminary Streptococcus Species Florina Albicans Resulted Imaging Last Impressions Chest X-Ray 02/21/17 0600 Signed Impressions: Service Date/Time: Tuesday, February 21, 2017 02:23 - CONCLUSION: 1. Rotated exam with dense consolidation now noted at the left lung base with air bronchograms. 2. Milder patchy infiltrate in the right lung base. Sergio Haro MD Abdomen X-Ray 02/21/17 0600 Signed Impressions: Service Date/Time: Tuesday, February 21, 2017 02:28 - CONCLUSION: 1. Interval placement of small bore rectal catheter. 2. Interval improvement in bowel gas pattern. 3. Dense consolidation remains in the left lung base. Sergio Haro MD Head CT 02/11/17 0000 Signed Impressions: Service Date/Time: Saturday, February 11, 2017 04:32 - CONCLUSION: Normal examination. Tyrone Simmons MD Chest CT 02/11/17 0000 Signed Impressions: Service Date/Time: Saturday, February 11, 2017 22:16 - CONCLUSION: Heart is quite enlarged. ET tube is in good position. There is a dense consolidation involving almost the entire left lower lobe with small left pleural effusion. There is a moderate size right pleural effusion measuring 3.2 x 6.0 cm across. Tyrone Simmons MD Renal Ultrasound 02/10/17 0000 Signed Impressions: Service Date/Time: Friday, February 10, 2017 23:06 - CONCLUSION: Normal examination. No evidence of obstruction or hydronephrosis.. Tyrone Simmons MD Breast Ultrasound 02/03/17 0000 Signed Impressions: Service Date/Time: Friday, February 03, 2017 18:49 - CONCLUSION: Complex cystic lesion measuring up to 11.8 cm centered at the 12:00 position left breast. Given the clinical history of recent procedure in this area this could represent a noninfected or infected fluid collection. Given the complex internal architecture, percutaneous drainage will likely not be successful. Once the patient's condition permits, consider outpatient diagnostic mammogram and ultrasound followup. Gregory Bob MD ADDENDUM: Another consideration given the prior CT appearance and current imaging findings is an old hematoma. Gregory Bob MD Abdomen/Pelvis CT 02/03/17 0000 Signed Impressions: Service Date/Time: Friday, February 03, 2017 17:35 - CONCLUSION: 1. CT findings characteristic of right heart insufficiency with diffuse but stable anasarca in the visible soft tissues and leaves of the mesentery as well as a small amount of ascites. Intrahepatic IVC is markedly dilated. 2. Previously identified bilateral pleural effusions are significantly improved with only a small amount of fluid on the left. There is some persistent atelectasis in the left base. 3. Heart size remains prominent. 4. Otherwise stable. Mt Alvarez MD Physical Exam CONSTITUTIONAL/GENERAL: This is an adequately nourished patient, in no apparent distress. TUBES/LINES/DRAINS: SKIN: No jaundice, rashes, or lesions. Skin temperature appropriate. Not diaphoretic. L breast dressing in place, less edematous HEENT: orally intubated CARDIOVASCULAR: Regular rate and rhythm without murmurs, gallops, or rubs. No JVD. Peripheral pulses symmetric. RESPIRATORY/CHEST: Symmetric, unlabored respirations. Clear to auscultation. Breath sounds equal bilaterally. No wheezes, rales, or rhonchi. GASTROINTESTINAL: Abdomen soft, no reaction to , distended . No hepato- splenomegaly, or palpable masses. No guarding. Bowel sounds present. GENITOURINARY: Without palpable bladder distension. Wolff catheter in place with clear light yellow urine MUSCULOSKELETAL: Extremities without clubbing, cyanosis, + Moderate edema , anasarca LUE with less non pitting edema LYMPHATICS: No palpable cervical or supraclavicular adenopathy. 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 LLL PNA vs atelectatic changes CHF with fluid oveload Probably asymptomatic asymptomatic bacteriuria Acute VDRF 2/2 severe CHF ? PNA Persistent L lung dense consolidation, sputum clx with nl vera - could be atelectatic changes 2/2 failure and post -op ARF on CKD, worsening creatinine Critically ill New ileus, in the settings of recent levaquine use Bacteruria (strep spp) and funguria Withdrawl planned for tomorrow r/o c.diff cont cefepime dw Darleen Noyola RN, MD Feb 21, 2017 18:21
[2017-02-21] MEDS: HEPARIN SODIUM - SQ 10,000 UNITS/ML VIAL SQ SCH (20:43)
[2017-02-21] MEDS: POTASSIUM CHLOR 40 MEQ PREMIX 100 ML IV SCH (21:18)
[2017-02-21] MEDS: NS IV SCH ×2 (21:59)
[2017-02-21] MEDS: FUROSEMIDE IV SCH ×2 (21:59)
[2017-02-22] VITALS (20 sets, daily range): BP systolic 116–165; BP diastolic 57–68; PULSE 58–67; RESP 16; TEMP 97.7–98; O2SAT 100
[2017-02-22] MEDS: CEFEPIME INJ 1,000 MG in SODIUM CHLORIDE 0.9% INJ 100 ML IV SCH ×2 (02:00→12:32)
[2017-02-22] MEDS: PROPOFOL 1000 MG/100 ML INJ 100 ML IV PRN ×4 (02:00→20:02)
[2017-02-22] MEDS: POTASSIUM CHLOR 40 MEQ PREMIX 100 ML IV SCH (02:22)
[2017-02-22] MEDS: ALBUMIN 25% INJ 100 ML IV SCH ×3 (02:53→19:26)
[2017-02-22] MEDS: RESP: ALBUTEROL 2.5 MG/IPRATROPIUM 0.5 MG NEB (SCH) INH ×6 (03:06→23:05)
[2017-02-22] MEDS: CHLORHEXIDINE GLUCONATE 2 % 1 PACK (2 CLOTHS) TOP SCH (03:16)
[2017-02-22] MEDS: SILDENAFIL CITRATE 20 MG TAB PO SCH ×3 (04:55→20:58)
[2017-02-22] MEDS: METOCLOPRAMIDE HCL 10 MG/2 ML VIAL IV PUSH SCH ×3 (04:55→20:59)
[2017-02-22] MEDS: INSULIN ASPART SUPPLEMENTAL SCALE SQ SCH ×4 (05:13→18:00)
--- NOTE | 2017-02-22 06:05 | RADRPT ---
EXAM DATE/TIME: 02/22/2017 04:28 [facility] COMPARISON: ABDOMEN KUB ONLY, February 21, 2017, 2:28. INDICATIONS : Evaluate Ileus MEDICAL HISTORY : Myocardial infarction. Congestive heart failure. Hypertension. COPD SURGICAL HISTORY : Cardia cath ENCOUNTER: Subsequent ACUITY: 1 week PAIN SCORE: Non-responsive. LOCATION: Bilateral Abdomen FINDINGS: 2 AP supine portable views of the chest were obtained again demonstrated a nasogastric tube and recta l tube in place. Mild gaseous distention remains in a portion of the colon located along the central abdomen. There is no evidence of free air or mass effect. Dense consolidation remains at the left yg g base with air bronchograms. CONCLUSION: 1. No significant change in the bowel gas pattern. 2. Dense consolidation remains in the left lung base. Sergio Haro MD on February 22, 2017 at 6:02 Board Certified Radiologist. This report was verified electronically.
[2017-02-22] MEDS: NS IV SCH ×10 (06:25→22:56)
[2017-02-22] MEDS: FUROSEMIDE IV SCH ×10 (06:25→22:56)
[2017-02-22 07:13] LABS: C. DIFF EPI 027 PRESUMPTIVE NEGATIVE (NEGATIVE)
[2017-02-22] MEDS: SENNOSIDES 8.6 MG TAB PO SCH ×2 (09:00→20:58)
[2017-02-22] MEDS: AMIODARONE 200 MG TAB PO SCH (09:00)
[2017-02-22] MEDS: SODIUM CHLORIDE 0.9% FLUSH 10 ML FLUSH IV FLUSH SCH ×2 (09:00→20:59)
[2017-02-22] MEDS: DOCUSATE SODIUM 50 MG/SENNA 8.6 MG TAB PO SCH ×2 (09:00→20:59)
[2017-02-22] MEDS: BISACODYL 10 MG SUPP RECTAL SCH (09:00)
[2017-02-22] MEDS: LACTULOSE SYRUP 20 GM/30 ML CUP PO SCH ×2 (09:00→20:59)
[2017-02-22] MEDS: MODAFINIL 200 MG TAB PO SCH (09:00)
[2017-02-22] MEDS: FERROUS SULFATE 325 MG (65 MG ELEMENTAL IRON) TAB PO SCH ×2 (09:00→20:58)
[2017-02-22] MEDS: AMANTADINE HCL SOLN 100 MG/10 ML UDC PO SCH ×2 (09:00→20:59)
[2017-02-22] MEDS: MAGNESIUM HYDROXIDE SUSP 30 ML CUP PO SCH ×2 (09:00→20:59)
[2017-02-22] MEDS: CARVEDILOL 3.125 MG TAB PO SCH ×2 (09:00→20:58)
[2017-02-22] MEDS: POLYETHYLENE GLYCOL 17 GM PKG PO SCH ×2 (09:00→20:59)
[2017-02-22] MEDS: ARTIFICIAL TEARS OPTH SOLN 15 ML BTL EACH EYE SCH ×3 (09:36→17:05)
[2017-02-22] MEDS: PANTOPRAZOLE SODIUM 40 MG VIAL IV PUSH SCH (09:36)
[2017-02-22] MEDS: HEPARIN SODIUM - SQ 10,000 UNITS/ML VIAL SQ SCH ×2 (09:36→20:59)
[2017-02-22] MEDS: CHLORHEXIDINE 0.12% (ORAL KIT) 15 ML CUP MT SCH ×2 (09:36→20:02)
[2017-02-22] MEDS: DEXTROSE 10% INJ 1,000 ML IV SCH (10:11)
--- NOTE | 2017-02-22 14:15 | HHI.NPPN ---
Subjective History of Present Illness 71 year old female with ARF/CHF.Hematoma Left breast Additional Remarks intubated Objective Data Data 02/22/17 02/23/17 19:00 07:00 Intake Total 850 ml Output Total 325.0 ml Balance 525.0 ml IV Total 850 ml Tube Feeding Residual Discard 325.0 ml Vital Signs Date Time Temp Pulse Resp B/P (MAP) Pulse Ox O2 Delivery O2 Flow Rate FiO2 02/22/17 11:30 100 40 02/22/17 10:10 58 02/22/17 10:10 40 02/22/17 09:46 100 Mechanical Ventilator 40 02/22/17 08:03 100 40 02/22/17 08:00 60 02/22/17 08:00 40 02/22/17 08:00 98.0 60 16 150/63 (92) 100 02/22/17 07:00 40 02/22/17 06:00 58 02/22/17 04:00 65 02/22/17 04:00 98.0 60 16 117/57 (77) 100 02/22/17 04:00 40 02/22/17 03:30 100 40 02/22/17 02:00 62 02/22/17 00:00 62 02/22/17 00:00 40 02/22/17 00:00 98.0 60 16 117/57 (77) 100 02/21/17 23:19 100 40 02/21/17 22:00 65 02/21/17 22:00 40 02/21/17 20:00 66 02/21/17 20:00 98.3 67 17 137/63 (87) 100 02/21/17 20:00 40 02/21/17 19:55 100 40 02/21/17 19:00 100 Mechanical Ventilator 40 02/21/17 18:22 60 02/21/17 18:22 40 02/21/17 16:57 97 40 02/21/17 16:00 40 02/21/17 16:00 97.7 62 16 165/70 (101) 100 02/21/17 16:00 63 02/21/17 14:00 40 02/21/17 14:00 60 -: 02/21/17 0530 02/21/17 1755 Physical Exam General Appearance: Well Developed Neck Neck Exam: Neck Supple Pulmonary Resp Exam: Decreased Bases Cardiology CV Exam: Regular Gastrointestinal/Abdomen GI Exam: Distended, Bowel Sounds Hypoactive Extremeties Extremities Exam: Pitting Edema Assessment/Plan Problem List: (1) HARVEY (acute kidney injury) ICD Codes: N17.9 - Acute kidney failure, unspecified Status: Acute Plan: Patient has congestive heart failure Lasix drip I will decrease to 10 mg/hr as UOP increased. stop Diamox K been replaced low VRE in urine ID informed . Creatinine 2 -> 3.3 family informed of worsening renal failure . Continue diuresis - on Lasix drip She has abdominal distention and ileus, rectal tube improved, D10 42 cc/hr Avoid nephrotoxins follow BMP (2) Hematoma (nontraumatic) of breast ICD Codes: N64.89 - Other specified disorders of breast Plan: Surgically operated on (3) Bilateral lower extremity edema ICD Codes: R60.0 - Bilateral lower extremity edema Status: Acute Plan: Due to congestive heart failure (4) CHF (congestive heart failure) ICD Codes: I50.9 - CHF (congestive heart failure) Status: Chronic Plan: With acute decompensation Lasix ordered after surgery (5) UTI (urinary tract infection) ICD Codes: N39.0 - UTI (urinary tract infection) Status: Acute Plan: Gram-negative Enterobacter cefepime Problem Qualifiers (1) CHF (congestive heart failure): Qualified Codes: I50.33 - Acute on chronic diastolic (congestive) heart failure Laurel Love MD Feb 22, 2017 14:14
[2017-02-22] MEDS ORDERED: POTASSIUM CHLOR 40 MEQ PREMIX 100 ML IV ONE (16:30)
--- NOTE | 2017-02-22 16:34 | HHI.CCPN ---
Subjective Remarks/Hospital Course Hospital Course: This is a 71-year-old Afro-[place] female. Date of admission 02/04/2017. Past medical history includes diastolic congestive heart failure, COPD, chronic atrial fibrillation, diabetes, hypertension and history of MSSA infection on cefazolin. Patient presents to [facility] initially on 02/04 with left breast swelling. In November/2016, patient was diagnosed with endocarditis and AICD infection. At that time, Pacemaker removed . Since that time she's had increasing swelling in her left breast and currently has an abscess of the location 11.8 cm in size. She also complained of Shortness of breath. This is associated with a self-reported 50 pound weight gain with bilateral lower extremity edema and significant stomach swelling. She also reports shortness of breath. She was treated with cefazolin at home include 01/29/2017. After cessation of treatment, she noted The patient reports a significant increase in her left breast swelling over the past 2-3 days. She states the area is tender to palpation and painful. She does not have a leukocytosis. Breast ultrasound showed a complex cystic lesion measuring up to 11.8 cm in the left breast that could represent a fluid collection or old hematoma. Today in 02/10, patient ID of her left breast by Dr. Joy. 300 crystalloid. EBL 50. Urine output 60. Patient received 40 mg torsemide IV post procedure. Her oxygenation requirements increasing currently on BiPAP. She is currently unresponsive when seen in [facility]. She'll be intubated at the present time Subjective: 02/11: intubated overnight. now on vasopressors with fever. likely mixed cardiogenic/septic shock from a combination of volume overload and breast abscess. Also has significant bilateral pleural effusion, left > right by CXR and bedside ultrasound. significantly up in weight. respiratory failure likely from volume overload, although worsening acute kidney injury and shock complicates picture. 02/12: despite aggressive diuresis increasing to bumex drip, still net + and poor diuresis. may require dialysis if no improvement. remains borderline hypoglycemic. renal function continues to worsen. no BM x 2 days. peak pressures on vent elevated. CT chest yesterday without significant effusions but completely collapsed LLL, likely a large component of atelectasis from severe cardiomegaly, but cannot rule out pna. no meaningful improvements from yesterday. 11/16: much improved diuresis yesterday and now net negative 1.7L/24h. Cr still uptrending, but only slightly. pulmonary compliance also has improved with overnight APRV. discussed care with Dr. Garcia and we both agree that inhaled epoprostenol may be of benefit in assisting with RV function to mitigate severe TR and assist with diuresis and hemodynamics. ammonia up slightly, although now having regular bowel movements. 02/14: good diuresis. Cr plateaued. LFTs and T bili slightly worse. ammonia stable without significant improvements. also had 1 episode of emesis today: tube feeds on hold and NGT to LIWS. 02/15: Heart is shaped like a bowling ball. Gas exchange much improved, continued diuresis. Residual NG aspirate > 500 - will reconnect to LIS, start reglan. Decrease T-high to 4.5, add pressure support 5. Lighten fentanyl. Diarrhea remains problematic. 02/16: blood pressure improved. bnp still uptrending. good diuresis. art line removed for non-functioning. 02/17: still diuresing with > 2L/24h negative balance. Cr still downtrending. bp still stable. tolerated initiation of sildenafil. persists with high gastric residuals. KUB with adynamic ileus. starting to weakly follow commands this morning, but still very somnolent. 02/18: continues to diurese on bumex drip with albumin and diamox. Cr continues to downtrend. bp stable. tolerating sildenafil. ileus persists. no tolerance of gastric tube feeds at all. no following commands this morning. If we look overall clinically a week ago until today, no meaningful improvements: continues to get low tidal volumes, atelectasis, and fails any attempt at SBT quickly and continues to require APRV to maintain adequate lung expansion. cardiac function no better despite 12L diuresis. kidneys are some improved but not significant, and mental status is very poor and metabolic encephalopathy is severe. With this many organs dysfunctional, this is a very poor prognosis. I had a long talk with the family where I expressed my concerns. The and medical decision maker clearly states in front of the whole family and palliative care that he would not want CPR or shocking or anything like that, as this would only prolong suffering, but he is having trouble with the decision to withdraw care, and would like to think about it and give a final decision about palliation vs. trach/peg and aggressive care tomorrow. 02/19: UO adequate but reduced over past few hours, labs today are pending. Changed mode to PC/AC. Attempted CPAP, failed due to low tidal volumes. Following commands, but very weak. 02/20: Worsening clinically with worsening abdominal distention/ileus creatinine 3.1 today remains oliguric. New fever Tmax 101, KUB shows right lower lung infiltrate which is new. Pancultured started on cefepime. Nothing by mouth to place NG tube to intermittent wall suction. GI consult placed. GI has ordered Relistor 02/21: Patient still requiring high inspiratory pressure support on PCV. Unable to tolerate CPAP. Abdominal distention slightly improved but still tense , KUB shows slight improvement in ileus. Has NGT to IWS and rectal tube. Creatinine is 3.4 today but 750 mL urine output in 24 hours. No emergency indication for hemodialysis at this time. Urine culture growing Streptococcus on Diflucan, ID reconsultation for new sepsis 02/22: No change clinically. Family wants to withdrawal probably Friday. Urine culture with VRE-Zyvox added. Potassium 2.8 getting replaced Objective Vital Signs Date Time Temp Pulse Resp B/P (MAP) Pulse Ox O2 Delivery O2 Flow Rate FiO2 02/22/17 16:03 65 02/22/17 16:00 97.7 16 116/58 (77) 100 02/22/17 16:00 40 02/22/17 09:46 Mechanical Ventilator Intake and Output 02/22/17 02/22/17 02/23/17 08:00 16:00 00:00 Intake Total 1544.5 ml 850 ml Output Total 2625.0 ml Balance -1080.5 ml 850 ml Result Diagram: 02/21/17 0530 02/22/17 1325 Other Results Microbiology Date/Time Source Procedure Growth Status 02/20/17 08:45 Sputum Endotracheal Gram Stain - Final Complete 02/20/17 08:45 Sputum Endotracheal Sputum Culture - Final HEAVY GROWTH NORMAL RESPIRATORY MARGARITA Complete 02/20/17 08:45 Urine Catheterized Urine Urine Culture - Final Enterococcus Faecium Vre Florina Albicans Complete Imaging Last Impressions Head CT 02/11/17 0000 Signed Impressions: Service Date/Time: Saturday, February 11, 2017 04:32 - CONCLUSION: Normal examination. Tyrone Simmons MD Renal Ultrasound 02/10/17 Signed Impressions: Service Date/Time: Friday, February 10, 2017 23:06 - CONCLUSION: Normal examination. No evidence of obstruction or hydronephrosis.. Tyrone Simmons MD Chest X-Ray 02/10/17 Signed Impressions: Service Date/Time: Friday, February 10, 2017 21:41 - CONCLUSION: 1. ET tube 1 cm from the anai. This can be pulled back 2 cm to be in a better position. 2. Cardiomegaly. Multiple electronic devices are seen over the chest. 3. Diffuse pulmonary consolidations likely representing edema. There is further atelectasis or consolidation the bases and probably bilateral effusions. Gregory Perry MD Breast Ultrasound 02/03/17 Signed Impressions: Service Date/Time: Friday, February 03, 2017 18:49 - CONCLUSION: Complex cystic lesion measuring up to 11.8 cm centered at the 12:00 position left breast. Given the clinical history of recent procedure in this area this could represent a noninfected or infected fluid collection. Given the complex internal architecture, percutaneous drainage will likely not be successful. Once the patient's condition permits, consider outpatient diagnostic mammogram and ultrasound followup. Gregory Bob MD ADDENDUM: Another consideration given the prior CT appearance and current imaging findings is an old hematoma. Gregory Bob MD Abdomen/Pelvis CT 02/03/17 Signed Impressions: Service Date/Time: Friday, February 03, 2017 17:35 - CONCLUSION: 1. CT findings characteristic of right heart insufficiency with diffuse but stable anasarca in the visible soft tissues and leaves of the mesentery as well as a small amount of ascites. Intrahepatic IVC is markedly dilated. 2. Previously identified bilateral pleural effusions are significantly improved with only a small amount of fluid on the left. There is some persistent atelectasis in the left base. 3. Heart size remains prominent. 4. Otherwise stable. Mt Alvarez MD Objective Remarks GENERAL: 71-year-old a female, lying in bed, intubated, on propofol SKIN: Warm and dry. No rash HEAD: Atraumatic. Normocephalic. EYES: Pupils equal and round bilaterally reactive. No conjunctival icterus. No injection or drainage. ENT: No nasal bleeding or discharge. Mucous membranes dry. NECK: Trachea midline. orotracheally intubated CARDIOVASCULAR: Regular rate and rhythm RESPIRATORY: PC/AC with equal air entry bilateral THORAX - left breast less indurated than before. LifeVest still in place. GASTROINTESTINAL: Abdomen tense distended. NGT output remains high. rectal tube in place MUSCULOSKELETAL: Extremities 1+ lower extremity edema. No obvious deformities. NEUROLOGICAL: Not following commands on propofol. Withdraws all extremities A/P Assessment and Plan Assessment: 71yF with h/o ICM, prior EF reported at 15%, s/p placement of AICD, recovery of LVEF to 60%, AICD infection s/p lead extraction, now with breast abscess, septic shock, volume overload, acute systolic CHF exacerbation, acute hypoxic respiratory failure. still very critically ill and unable to measurably improve her organs. Family to decide tomorrow trach/peg vs. hospice by tomorrow. DNR now Continuing diuresis with Bumex and Diamox. continue NPO. Off pathway with little improvements. Now with new fever and pneumonia, worsening renal failure and ileus. Prognosis very poor Neuro/Psych: Metabolic Encephalopathy Hyperammonemia Hypoactive delirium Restarted on propofol yesterday 02/21/17 for vent synchrony Due to ileus fentanyl was discontinued Goal of RASS -1. CT brain 02/10- negative for acute disease. Amantadine for improved wakefulness. Modafinil for alertness. CV: Acute CHF exacerbation: mixed type, including systolic, diastolic, and valvulopathy from severe tricuspid regurgitation. History arrhythmia/ chronic atrial fibrillation - LifeVest since 11/2016 Hypertension Coronary disease status post stent 3 Moderate to severe TR Acute intravascular volume overload Cor Pulmonale 2-D echocardiogram revealed EF of 60%. Severe TR. PAP 33 mmHg, bedside critical care echo 02/11: moderately depressed LV function. clinically significant TR. Rpt limited echo to evaluate LVEF and TR-pending Holding metoprolol, enalapril, amlodipine for hypotension Previously on bumetanide 2 mg daily with KCl 10 mEq twice a day. continue bumex drip to 2mg/hr. Diamox 500mg iv q8h. Now UO improving, no emergency indication for HD continue concentrated albumin. Continue amiodarone 200 mg by mouth daily Dr. Feliciano - cardiology and Dr. Garcia, CT surgery following hold spironolactone given renal function. hold Sacibutril/Valsartan continue sildenafil 20mg po q8hr carvedilol 3.125 mg po q12h. Resp: Acute hypoxic respiratory failure Compressive atelectasis/consolidation LLL New RLL HCAP pneumonia Acute pulmonary edema Severe acute intravascular volume overload COPD - 3 L oxygen dependent PRVC/AC. Failing CPAP due to low TV Ventilator bundle Albuterol/ipratropium aerosols every 4 hours albuterol aerosols every 2 hours. Dyspnea wean fio2 for goal spo2 > 90% CT chest 02/11: moderate right pleural effusion. densely consolidated LLL. severe cardiomegaly. KUB 02/20 New RLL infiltrate, ileus no drainable effusion which is large enough to prevent pulmonary mechanics. GI: Severe Ileus Abdominal Distension Hyperammonemia Acute protein calorie malnutrition - moderate Acute intravascular volume overload Obesity Constipation NGT to LIWS. Rectal tube, GI following. Recd Relistor 02/20 Pantoprazole for GI prophylaxis Docusate sodium/senna for bowel regimen lactulose qid for elevated ammonia which is likely secondary to early congestive hepatopathy diuresis as above. continue aggressive bowel regimen: - senna/colace - miraLAX BID - lactulose QID - dulcolax supp daily - reglan 5mg iv q8h : Acute Kidney failure worsening Replace ellis today. forced diuresis as above kidney injury likely multifactorial and combination of shock and venous congestion from volume overload. lungs and heart function require urgent forced diuresis, despite kidney injury. HD per Dr. Love if family wants to continue aggressive care Endo: Diabetes mellitus Hypoglycemia Hold insulin detemir 27 units at night. Currently on sliding scale insulin with NovoLog low regimen every 6 hours d10w @ 42cc/hr. change to D5NS due to hyponatremia maintain dextrose source while NPO. Renal: Acute kidney injury in the setting of chronic kidney disease stage III worsening Followed by nephrology/by Dr. Love Avoid nephrotoxic drugs Heme: Normocytic anemia Chronic warfarin use Currently holding warfarin 4 mg daily. CBC and INR daily Does not meet transfusion threshold at this time Currently on iron sulfate 325 mg by mouth twice a day-holding due to ileus ID: Fever/RLL infiltrate/HCAP UTI with Florina and VRE Escherichia coli UTI History of MSSA abscess to left breast Pertinent cultures 02/20 german culture 02/08 - urine - Enterobacter 02/04 - blood cultures 2- no growth 02/03 - urine - Escherichia coli Followed by Dr. Tamayo/ID, reconsult 04/23 Started cefepime and single dose vanc 02/20 Zyvox added for VRE 02/22 FEN: Replace electrolytes as clinically indicated MSK: Postop day #13 I&D left breast hematoma by Dr. Garcia PT evaluate and treat Access - Utilize peripheral IV. Continue to use right upper extremity single lumen PICC line. Central line if indicated Prophylaxis - GI - pantoprazole - DVT - SCD/SQH 5000 q12h. Overall impression: overall likely poor prognosis given acute exacerbation of multiple chronic medical problems.Family wants to withdraw life support Friday Level 2 Ashley Jenkins MD Feb 22, 2017 16:34
[2017-02-22] MEDS: LINEZOLID 600 MG PREMIX 300 ML IV SCH ×2 (17:04→17:45)
[2017-02-23] VITALS (15 sets, daily range): BP systolic 117–144; BP diastolic 52–63; PULSE 67–72; RESP 16–23; TEMP 96.5–98.3; O2SAT 100
[2017-02-23] MEDS: POTASSIUM CHLOR 40 MEQ PREMIX 100 ML IV SCH ×2 (00:18→04:28)
[2017-02-23] MEDS: PROPOFOL 1000 MG/100 ML INJ 100 ML IV PRN ×2 (01:03→06:01)
[2017-02-23] MEDS: CEFEPIME INJ 1,000 MG in SODIUM CHLORIDE 0.9% INJ 100 ML IV SCH ×2 (02:20→13:31)
[2017-02-23] MEDS: RESP: ALBUTEROL 2.5 MG/IPRATROPIUM 0.5 MG NEB (SCH) INH ×6 (03:19→23:08)
[2017-02-23] MEDS: ALBUMIN 25% INJ 100 ML IV SCH ×3 (03:43→18:21)
[2017-02-23] MEDS: CHLORHEXIDINE GLUCONATE 2 % 1 PACK (2 CLOTHS) TOP SCH (04:00)
[2017-02-23] MEDS: SILDENAFIL CITRATE 20 MG TAB PO SCH ×3 (05:17→21:24)
[2017-02-23] MEDS: METOCLOPRAMIDE HCL 10 MG/2 ML VIAL IV PUSH SCH ×3 (05:17→21:24)
[2017-02-23] MEDS: LINEZOLID 600 MG PREMIX 300 ML IV SCH ×3 (05:18→17:04)
[2017-02-23 05:48] LABS: BASOPHIL # 0.1 TH/MM3 (0-0.2); BASOPHIL % 1.2 % (0.0-2.0); EOSINOPHIL # 0.1 TH/MM3 (0-0.4); EOSINOPHIL % 2.5 % (0.0-4.0); HEMATOCRIT 25.7 % (35.0-46.0); HEMO FLAGS DIFF FINAL; LYMPH % 10.6 % (9.0-44.0); LYMPHOCYTE # 0.6 TH/MM3 (1.0-4.8); MEAN CELL VOLUME 86.1 FL (80.0-100.0); MEAN CORPUSCULAR HEMOGLOBIN 28.4 PG (27.0-34.0); MONO % 12.4 % (0.0-8.0); NEUT % 73.3 % (16.0-70.0); PLATELET COUNT 257 TH/MM3 (150-450); RED BLOOD COUNT 2.99 MIL/MM3 (4.00-5.30); RED CELL DISTRIBUTION WIDTH 20.8 % (11.6-17.2); WHITE BLOOD COUNT 5.5 TH/MM3 (4.0-11.0)
[2017-02-23] MEDS: INSULIN ASPART SUPPLEMENTAL SCALE SQ SCH ×4 (06:00→18:00)
--- NOTE | 2017-02-23 06:18 | RADRPT ---
EXAM DATE/TIME: 02/23/2017 04:45 [facility] COMPARISON: CHEST SINGLE AP, February 21, 2017, 2:23. INDICATIONS : Respiratory disease.. Followup pulmonary infiltrates with dense opacity at the left lung base. MEDICAL HISTORY : Myocardial infarction. Congestive heart failure. Hypertension. Left eye cataracts. Dentures, Anticoag ulant therapy, COPD, Asthma, Dyspnea SURGICAL HISTORY : Cardiac cath, internal defibrillator, right lumpectomy ENCOUNTER: Subsequent ACUITY: 1 week PAIN SCORE: Non-responsive. LOCATION: Bilateral chest FINDINGS: A single AP semierect portable view of the chest was obtained. The patient is mildly rotated to the l eft. The endotracheal tube remains in place with the tip approximately 3 cm above the anai. A nasog astric tube is seen coursing through the esophagus and into the stomach. Multiple overlying electroca rdiogram leads are again noted. Dense consolidation remains at the left lung base with air bronchogra ms and obscuration of the hemidiaphragm. The costophrenic angle remains obscured. Hazy opacity remain s at the right lung base. The heart size is mildly enlarged. CONCLUSION: Mildly rotated study with no significant change. Dense consolidation remains at the left lung base an d there is more hazy opacity at the right lower lobe. Sergio Haro MD on February 23, 2017 at 6:13 Board Certified Radiologist. This report was verified electronically.
[2017-02-23 06:28] LABS: ALKALINE PHOSPHATASE 47 U/L (45-117); ALT (GPT) 7 U/L (10-53); ANION GAP 10 MEQ/L (5-15); AST (GOT) 12 U/L (15-37); BICARBONATE 23.9 MEQ/L (21.0-32.0); BLOOD UREA NITROGEN 36 MG/DL (7-18); CHLORIDE 102 MEQ/L (98-107); GLOMERULAR FILTRATION RATE 20 ML/MIN (>89); POTASSIUM 3.7 MEQ/L (3.5-5.1); SODIUM (NA) 136 MEQ/L (136-145); TOTAL BILIRUBIN ADULT 1.3 MG/DL (0.2-1.0)
--- NOTE | 2017-02-23 06:30 | RADRPT ---
EXAM DATE/TIME: 02/23/2017 04:53 [facility] COMPARISON: ABDOMEN KUB ONLY, February 22, 2017, 4:28. INDICATIONS : Followup ileus.. MEDICAL HISTORY : Myocardial infarction. Congestive heart failure. Hypertension. COPD Dentures, Anticoagulant therapy SURGICAL HISTORY : Cardiac cath, internal defibrillator, right lumpectomy ENCOUNTER: Subsequent ACUITY: 1 week PAIN SCORE: Non-responsive. LOCATION: abdomen FINDINGS: 2 AP supine views of the abdomen and pelvis were obtained and again demonstrate a rectal tube and mabel ogastric tube in place. The bowel gas pattern is not significantly changed with mild gaseous distenti on of portions of the colon in the central lower abdomen and pelvis. There is no evidence of free air or mass effect. Dense consolidation is again noted the left lung base with air bronchograms. CONCLUSION: 1. No significant change in the bowel gas pattern. 2. Dense consolidation remains in the left lung base. Sergio Haro MD on February 23, 2017 at 6:27 Board Certified Radiologist. This report was verified electronically.
[2017-02-23] MEDS: DEXTROSE 10% INJ 1,000 ML IV SCH (07:49)
[2017-02-23] MEDS: CHLORHEXIDINE 0.12% (ORAL KIT) 15 ML CUP MT SCH ×2 (08:00→21:04)
[2017-02-23] MEDS: MODAFINIL 200 MG TAB PO SCH (08:43)
[2017-02-23] MEDS: MAGNESIUM HYDROXIDE SUSP 30 ML CUP PO SCH ×2 (08:44→21:25)
[2017-02-23] MEDS: AMANTADINE HCL SOLN 100 MG/10 ML UDC PO SCH ×2 (08:44→21:24)
[2017-02-23] MEDS: BISACODYL 10 MG SUPP RECTAL SCH (08:44)
[2017-02-23] MEDS: SENNOSIDES 8.6 MG TAB PO SCH ×2 (08:44→21:25)
[2017-02-23] MEDS: AMIODARONE 200 MG TAB PO SCH (08:44)
[2017-02-23] MEDS: CARVEDILOL 3.125 MG TAB PO SCH ×2 (08:44→21:25)
[2017-02-23] MEDS: DOCUSATE SODIUM 50 MG/SENNA 8.6 MG TAB PO SCH ×2 (08:44→21:25)
[2017-02-23] MEDS: LACTULOSE SYRUP 20 GM/30 ML CUP PO SCH ×2 (08:44→21:25)
[2017-02-23] MEDS: POLYETHYLENE GLYCOL 17 GM PKG PO SCH ×2 (08:44→21:24)
[2017-02-23] MEDS: PANTOPRAZOLE SODIUM 40 MG VIAL IV PUSH SCH (08:44)
[2017-02-23] MEDS: ARTIFICIAL TEARS OPTH SOLN 15 ML BTL EACH EYE SCH ×3 (08:45→18:00)
[2017-02-23] MEDS: HEPARIN SODIUM - SQ 10,000 UNITS/ML VIAL SQ SCH ×2 (08:45→21:24)
[2017-02-23] MEDS: SODIUM CHLORIDE 0.9% FLUSH 10 ML FLUSH IV FLUSH SCH ×2 (09:00→21:04)
[2017-02-23] MEDS: FERROUS SULFATE 325 MG (65 MG ELEMENTAL IRON) TAB PO SCH ×2 (09:00→21:25)
--- NOTE | 2017-02-23 10:56 | HHI.CCPN ---
Subjective Remarks/Hospital Course Hospital Course: This is a 71-year-old Afro-[place]i female. Date of admission 02/04/2017. Past medical history includes diastolic congestive heart failure, COPD, chronic atrial fibrillation, diabetes, hypertension and history of MSSA infection on cefazolin. Patient presents to [facility] initially on 02/04 with left breast swelling. In November/2016, patient was diagnosed with endocarditis and AICD infection. At that time, Pacemaker removed . Since that time she's had increasing swelling in her left breast and currently has an abscess of the location 11.8 cm in size. She also complained of Shortness of breath. This is associated with a self-reported 50 pound weight gain with bilateral lower extremity edema and significant stomach swelling. She also reports shortness of breath. She was treated with cefazolin at home include 01/29/2017. After cessation of treatment, she noted The patient reports a significant increase in her left breast swelling over the past 2-3 days. She states the area is tender to palpation and painful. She does not have a leukocytosis. Breast ultrasound showed a complex cystic lesion measuring up to 11.8 cm in the left breast that could represent a fluid collection or old hematoma. Today in 02/10, patient ID of her left breast by Dr. Joy. 300 crystalloid. EBL 50. Urine output 60. Patient received 40 mg torsemide IV post procedure. Her oxygenation requirements increasing currently on BiPAP. She is currently unresponsive when seen in [facility]. She'll be intubated at the present time Subjective: 02/11: intubated overnight. now on vasopressors with fever. likely mixed cardiogenic/septic shock from a combination of volume overload and breast abscess. Also has significant bilateral pleural effusion, left > right by CXR and bedside ultrasound. significantly up in weight. respiratory failure likely from volume overload, although worsening acute kidney injury and shock complicates picture. 02/12: despite aggressive diuresis increasing to bumex drip, still net + and poor diuresis. may require dialysis if no improvement. remains borderline hypoglycemic. renal function continues to worsen. no BM x 2 days. peak pressures on vent elevated. CT chest yesterday without significant effusions but completely collapsed LLL, likely a large component of atelectasis from severe cardiomegaly, but cannot rule out pna. no meaningful improvements from yesterday. 11/16: much improved diuresis yesterday and now net negative 1.7L/24h. Cr still uptrending, but only slightly. pulmonary compliance also has improved with overnight APRV. discussed care with Dr. Garcia and we both agree that inhaled epoprostenol may be of benefit in assisting with RV function to mitigate severe TR and assist with diuresis and hemodynamics. ammonia up slightly, although now having regular bowel movements. 02/14: good diuresis. Cr plateaued. LFTs and T bili slightly worse. ammonia stable without significant improvements. also had 1 episode of emesis today: tube feeds on hold and NGT to LIWS. 02/15: Heart is shaped like a bowling ball. Gas exchange much improved, continued diuresis. Residual NG aspirate > 500 - will reconnect to LIS, start reglan. Decrease T-high to 4.5, add pressure support 5. Lighten fentanyl. Diarrhea remains problematic. 02/16: blood pressure improved. bnp still uptrending. good diuresis. art line removed for non-functioning. 02/17: still diuresing with > 2L/24h negative balance. Cr still downtrending. bp still stable. tolerated initiation of sildenafil. persists with high gastric residuals. KUB with adynamic ileus. starting to weakly follow commands this morning, but still very somnolent. 02/18: continues to diurese on bumex drip with albumin and diamox. Cr continues to downtrend. bp stable. tolerating sildenafil. ileus persists. no tolerance of gastric tube feeds at all. no following commands this morning. If we look overall clinically a week ago until today, no meaningful improvements: continues to get low tidal volumes, atelectasis, and fails any attempt at SBT quickly and continues to require APRV to maintain adequate lung expansion. cardiac function no better despite 12L diuresis. kidneys are some improved but not significant, and mental status is very poor and metabolic encephalopathy is severe. With this many organs dysfunctional, this is a very poor prognosis. I had a long talk with the family where I expressed my concerns. The and medical decision maker clearly states in front of the whole family and palliative care that he would not want CPR or shocking or anything like that, as this would only prolong suffering, but he is having trouble with the decision to withdraw care, and would like to think about it and give a final decision about palliation vs. trach/peg and aggressive care tomorrow. 02/19: UO adequate but reduced over past few hours, labs today are pending. Changed mode to PC/AC. Attempted CPAP, failed due to low tidal volumes. Following commands, but very weak. 02/20: Worsening clinically with worsening abdominal distention/ileus creatinine 3.1 today remains oliguric. New fever Tmax 101, KUB shows right lower lung infiltrate which is new. Pancultured started on cefepime. Nothing by mouth to place NG tube to intermittent wall suction. GI consult placed. GI has ordered Relistor 02/21: Patient still requiring high inspiratory pressure support on PCV. Unable to tolerate CPAP. Abdominal distention slightly improved but still tense , KUB shows slight improvement in ileus. Has NGT to IWS and rectal tube. Creatinine is 3.4 today but 750 mL urine output in 24 hours. No emergency indication for hemodialysis at this time. Urine culture growing Streptococcus on Diflucan, ID reconsultation for new sepsis 02/22: No change clinically. Family wants to withdrawal probably Friday. Urine culture with VRE-Zyvox added. Potassium 2.8 getting replaced 02/23: Clinically remains the same except creatinine is slightly improved to 2.8. Urine output 850 mL in 24 hours. Abdomen feels less tense. Remains sedated with propofol for vent synchrony Objective Vital Signs Date Time Temp Pulse Resp B/P (MAP) Pulse Ox O2 Delivery O2 Flow Rate FiO2 02/23/17 08:17 100 Ventilator 40 02/23/17 08:00 71 02/23/17 08:00 98.3 16 117/54 (75) Intake and Output 02/23/17 02/23/17 02/24/17 08:00 16:00 00:00 Intake Total 1195 ml 400 ml Output Total 1300 ml Balance -105 ml 400 ml Result Diagram: 02/23/17 0520 02/23/17 0520 Imaging Last Impressions Head CT 02/11/17 0000 Signed Impressions: Service Date/Time: Saturday, February 11, 2017 04:32 - CONCLUSION: Normal examination. Tyrone Simmons MD Renal Ultrasound 02/10/17 0000 Signed Impressions: Service Date/Time: Friday, February 10, 2017 23:06 - CONCLUSION: Normal examination. No evidence of obstruction or hydronephrosis.. Tyrone Simmons MD Chest X-Ray 02/10/17 Signed Impressions: Service Date/Time: Friday, February 10, 2017 21:41 - CONCLUSION: 1. ET tube 1 cm from the anai. This can be pulled back 2 cm to be in a better position. 2. Cardiomegaly. Multiple electronic devices are seen over the chest. 3. Diffuse pulmonary consolidations likely representing edema. There is further atelectasis or consolidation the bases and probably bilateral effusions. Gregory Perry MD Breast Ultrasound 02/03/17 Signed Impressions: Service Date/Time: Friday, February 03, 2017 18:49 - CONCLUSION: Complex cystic lesion measuring up to 11.8 cm centered at the 12:00 position left breast. Given the clinical history of recent procedure in this area this could represent a noninfected or infected fluid collection. Given the complex internal architecture, percutaneous drainage will likely not be successful. Once the patient's condition permits, consider outpatient diagnostic mammogram and ultrasound followup. Gregory Bob MD ADDENDUM: Another consideration given the prior CT appearance and current imaging findings is an old hematoma. Gregory Bob MD Abdomen/Pelvis CT 02/03/17 Signed Impressions: Service Date/Time: Friday, February 03, 2017 17:35 - CONCLUSION: 1. CT findings characteristic of right heart insufficiency with diffuse but stable anasarca in the visible soft tissues and leaves of the mesentery as well as a small amount of ascites. Intrahepatic IVC is markedly dilated. 2. Previously identified bilateral pleural effusions are significantly improved with only a small amount of fluid on the left. There is some persistent atelectasis in the left base. 3. Heart size remains prominent. 4. Otherwise stable. Mt Alvarez MD Objective Remarks GENERAL: 71-year-old a female, lying in bed, intubated, on propofol SKIN: Warm and dry. No rash HEAD: Atraumatic. Normocephalic. EYES: Pupils equal and round bilaterally reactive. No conjunctival icterus. No injection or drainage. ENT: No nasal bleeding or discharge. Mucous membranes dry. NECK: Trachea midline. orotracheally intubated CARDIOVASCULAR: Regular rate and rhythm RESPIRATORY: PC/AC with equal air entry bilateral THORAX - left breast less indurated than before. LifeVest still in place. GASTROINTESTINAL: Abdomen improved distension. NGT output remains high. rectal tube in place MUSCULOSKELETAL: Extremities 1+ lower extremity edema. No obvious deformities. NEUROLOGICAL: Not following commands on propofol. Withdraws all extremities A/P Assessment and Plan Assessment: 71yF with h/o ICM, prior EF reported at 15%, s/p placement of AICD, recovery of LVEF to 60%, AICD infection s/p lead extraction, now with breast abscess, septic shock, volume overload, acute systolic CHF exacerbation, acute hypoxic respiratory failure. still very critically ill and unable to measurably improve her organs. Family to decide tomorrow trach/peg vs. hospice by tomorrow. DNR now Continuing diuresis with Bumex and Diamox. continue NPO. Off pathway with little improvements. Now with VRE and Florina UTI, renal failure and ileus. Prognosis very poor Neuro/Psych: Metabolic Encephalopathy Hyperammonemia Hypoactive delirium Restarted on propofol yesterday 02/21/17 for vent synchrony Due to ileus fentanyl was discontinued Goal of RASS -1. CT brain 02/10- negative for acute disease. Amantadine for improved wakefulness. Modafinil for alertness. CV: Acute CHF exacerbation: mixed type, including systolic, diastolic, and valvulopathy from severe tricuspid regurgitation. History arrhythmia/ chronic atrial fibrillation - LifeVest since 11/2016 Hypertension Coronary disease status post stent 3 Moderate to severe TR Acute intravascular volume overload Cor Pulmonale 2-D echocardiogram revealed EF of 60%. Severe TR. PAP 33 mmHg, bedside critical care echo 02/11: moderately depressed LV function. clinically significant TR. Rpt limited echo 02/21 sev TR, PASP 59, EF 50-55% Holding metoprolol, enalapril, amlodipine for hypotension Previously on bumetanide 2 mg daily with KCl 10 mEq twice a day. continue bumex drip to 2mg/hr. Diamox 500mg iv q8h. UO 850 in 24 hours. Creat improved to 2.8 continue concentrated albumin. Continue amiodarone 200 mg by mouth daily Dr. Feliciano - cardiology and Dr. Garcia, CT surgery following hold spironolactone given renal function. hold Sacibutril/Valsartan continue sildenafil 20mg po q8hr for Pulm hypertension carvedilol 3.125 mg po q12h. Resp: Acute hypoxic respiratory failure Compressive atelectasis/consolidation LLL New RLL HCAP pneumonia Acute pulmonary edema Severe acute intravascular volume overload COPD - 3 L oxygen dependent PRVC/AC. Failing CPAP due to low TV, repeat SBT today as abdominal distension improved Ventilator bundle. Albuterol/ipratropium aerosols every 4 hours albuterol aerosols every 2 hours. Dyspnea wean fio2 for goal spo2 > 90% CT chest 02/11: moderate right pleural effusion. densely consolidated LLL. severe cardiomegaly. KUB 02/20 New RLL infiltrate, ileus GI: Severe Ileus Abdominal Distension Hyperammonemia Acute protein calorie malnutrition - moderate Acute intravascular volume overload Obesity Constipation NGT to LIWS. Rectal tube, GI following. Recd Relistor 02/20 Pantoprazole for GI prophylaxis Docusate sodium/senna for bowel regimen lactulose qid for elevated ammonia which is likely secondary to early congestive hepatopathy diuresis as above. continue aggressive bowel regimen: - senna/colace-hold while NPO - MiraLAX BID- hold while NPO - lactulose QID- hold while NPO - Dulcolax supp daily - reglan 5mg iv q8h If family not withdrawing by tomorrow, start renal TPN : Acute Kidney failure worsening Replaced ellis. forced diuresis as above kidney injury likely multifactorial and combination of shock and venous congestion from volume overload. lungs and heart function require urgent forced diuresis, despite kidney injury. Dr. Love following Endo: Diabetes mellitus Hypoglycemia Hold insulin detemir 27 units at night. Currently on sliding scale insulin with NovoLog low regimen every 6 hours d10w @ 42cc/hr. change to D5NS due to hyponatremia maintain dextrose source while NPO. Renal: Acute kidney injury in the setting of chronic kidney disease stage III worsening Followed by nephrology/by Dr. Love Avoid nephrotoxic drugs Heme: Normocytic anemia Chronic warfarin use Currently holding warfarin 4 mg daily. CBC and INR daily Does not meet transfusion threshold at this time Currently on iron sulfate 325 mg by mouth twice a day-holding due to ileus ID: Fever/RLL infiltrate/HCAP UTI with Florina and VRE Escherichia coli UTI History of MSSA abscess to left breast Pertinent cultures 02/20 german culture 02/08 - urine - Enterobacter 02/04 - blood cultures 2- no growth 02/03 - urine - Escherichia coli Followed by Dr. Tamayo/ID, reconsult 04/23 Started cefepime and single dose vanc 02/20 Zyvox added for VRE 02/22 FEN: Replace electrolytes as clinically indicated MSK: Postop day #14 I&D left breast hematoma by Dr. Garcia PT evaluate and treat Access - Utilize peripheral IV. Continue to use right upper extremity single lumen PICC line. Central line if indicated Prophylaxis - GI - pantoprazole - DVT - SCD/SQH 5000 q12h. Overall impression: overall likely poor prognosis given acute exacerbation of multiple chronic medical problems.Family wants to withdraw life support Friday Level 2 Ashley Jenkins MD Feb 23, 2017 10:56
--- NOTE | 2017-02-23 12:59 | HHI.GIFU ---
Subjective Remarks Sedated on vent. (Stephanie Pro) Objective Vitals I&O Vital Signs Date Time Temp Pulse Resp B/P (MAP) Pulse Ox O2 Delivery O2 Flow Rate FiO2 02/23/17 11:28 40 02/23/17 11:20 40 02/23/17 11:20 100 40 02/23/17 08:17 100 Ventilator 40 02/23/17 08:17 100 40 02/23/17 08:00 40 02/23/17 08:00 71 02/23/17 08:00 98.3 71 16 117/54 (75) 100 02/23/17 06:00 40 02/23/17 06:00 68 02/23/17 04:10 100 40 02/23/17 04:00 68 02/23/17 04:00 98.3 72 16 124/53 (76) 100 02/23/17 04:00 40 02/23/17 02:00 68 02/23/17 02:00 40 02/23/17 00:00 40 02/23/17 00:00 68 02/23/17 00:00 97.9 71 16 118/52 (74) 100 02/22/17 23:06 100 40 02/22/17 22:00 64 02/22/17 20:00 62 02/22/17 20:00 97.8 64 16 116/68 (84) 100 02/22/17 20:00 40 02/22/17 19:50 100 40 02/22/17 19:32 40 02/22/17 19:32 62 02/22/17 19:30 66 02/22/17 19:00 100 Mechanical Ventilator 40 02/22/17 18:00 66 02/22/17 16:03 65 02/22/17 16:00 97.7 66 16 116/58 (77) 100 02/22/17 16:00 40 02/22/17 14:00 67 02/22/17 14:00 40 I/O 02/22/17 02/22/17 02/22/17 02/23/17 02/23/17 02/23/17 07:00 15:00 23:00 07:00 15:00 23:00 Intake Total 1544.5 ml 850 ml 600 ml 1595 ml Output Total 2300 ml 325.0 ml 2525 ml 1300 ml Balance -755.5 ml 525.0 ml -1925 ml 295 ml IV Total 1544.5 ml 850 ml 600 ml 1595 ml Output Urine Total 1600 ml 2100 ml 850 ml Stool Total 700 ml 350 ml 450 ml Gastric Drainage Total 75 ml Tube Feeding Residual Discard 325.0 ml Laboratory Laboratory Tests Test 02/22/17 13:25 02/22/17 22:57 02/23/17 05:20 02/23/17 10:40 Potassium Level 2.8 3.2 3.7 3.9 White Blood Count 5.5 Red Blood Count 2.99 Hemoglobin 8.5 Hematocrit 25.7 Mean Corpuscular Volume 86.1 Mean Corpuscular Hemoglobin 28.4 Mean Corpuscular Hemoglobin Concent 33.0 Red Cell Distribution Width 20.8 Platelet Count 257 Mean Platelet Volume 7.6 Neutrophils (%) (Auto) 73.3 Lymphocytes (%) (Auto) 10.6 Monocytes (%) (Auto) 12.4 Eosinophils (%) (Auto) 2.5 Basophils (%) (Auto) 1.2 Neutrophils # (Auto) 4.0 Lymphocytes # (Auto) 0.6 Monocytes # (Auto) 0.7 Eosinophils # (Auto) 0.1 Basophils # (Auto) 0.1 CBC Comment DIFF FINAL Differential Comment Blood Urea Nitrogen 36 Creatinine 2.78 Random Glucose 94 Total Protein 7.2 Albumin 4.4 Calcium Level 8.6 Alkaline Phosphatase 47 Aspartate Amino Transf (AST/SGOT) 12 Alanine Aminotransferase (ALT/SGPT) 7 Total Bilirubin 1.3 Sodium Level 136 Chloride Level 102 Carbon Dioxide Level 23.9 Anion Gap 10 Estimat Glomerular Filtration Rate 20 Date/Time Source Procedure Growth Status 02/20/17 08:37 Blood Peripheral Aerobic Blood Culture - Preliminary NO GROWTH IN 3 DAYS Resulted 02/20/17 08:37 Blood Peripheral Anaerobic Blood Culture - Preliminary NO GROWTH IN 3 DAYS Resulted 02/10/17 17:33 Fluid Other Fungal Smear - Final NO FUNGAL ELEMENTS SEEN. Resulted 02/10/17 17:33 Fluid Other Fungal Culture - Preliminary NO GROWTH IN 1 WEEK Resulted 02/20/17 08:45 Sputum Endotracheal Gram Stain - Final Complete 02/20/17 08:45 Sputum Endotracheal Sputum Culture - Final HEAVY GROWTH NORMAL RESPIRATORY MARGARITA Complete 02/20/17 08:45 Urine Catheterized Urine Urine Culture - Final Enterococcus Faecium Vre Florina Albicans Complete 02/10/17 17:33 Wound Other Fungal Smear - Final NO FUNGAL ELEMENTS SEEN. Resulted 02/10/17 17:33 Wound Other Fungal Culture - Preliminary NO GROWTH IN 1 WEEK Resulted Imaging Last Impressions Chest X-Ray 02/23/17 0600 Signed Impressions: Service Date/Time: Thursday, February 23, 2017 04:45 - CONCLUSION: Mildly rotated study with no significant change. Dense consolidation remains at the left lung base and there is more hazy opacity at the right lower lobe. Sergio Haro MD Abdomen X-Ray 02/23/17 0600 Signed Impressions: Service Date/Time: Thursday, February 23, 2017 04:53 - CONCLUSION: 1. No significant change in the bowel gas pattern. 2. Dense consolidation remains in the left lung base. Sergio Haro MD Head CT 02/11/17 0000 Signed Impressions: Service Date/Time: Saturday, February 11, 2017 04:32 - CONCLUSION: Normal examination. Tyrone Simmons MD Chest CT 02/11/17 0000 Signed Impressions: Service Date/Time: Saturday, February 11, 2017 22:16 - CONCLUSION: Heart is quite enlarged. ET tube is in good position. There is a dense consolidation involving almost the entire left lower lobe with small left pleural effusion. There is a moderate size right pleural effusion measuring 3.2 x 6.0 cm across. Tyrone Simmons MD Renal Ultrasound 02/10/17 0000 Signed Impressions: Service Date/Time: Friday, February 10, 2017 23:06 - CONCLUSION: Normal examination. No evidence of obstruction or hydronephrosis.. Tyrone Simmons MD Breast Ultrasound 02/03/17 0000 Signed Impressions: Service Date/Time: Friday, February 03, 2017 18:49 - CONCLUSION: Complex cystic lesion measuring up to 11.8 cm centered at the 12:00 position left breast. Given the clinical history of recent procedure in this area this could represent a noninfected or infected fluid collection. Given the complex internal architecture, percutaneous drainage will likely not be successful. Once the patient's condition permits, consider outpatient diagnostic mammogram and ultrasound followup. Gregory Bob MD ADDENDUM: Another consideration given the prior CT appearance and current imaging findings is an old hematoma. Gregory Bob MD Abdomen/Pelvis CT 02/03/17 0000 Signed Impressions: Service Date/Time: Friday, February 03, 2017 17:35 - CONCLUSION: 1. CT findings characteristic of right heart insufficiency with diffuse but stable anasarca in the visible soft tissues and leaves of the mesentery as well as a small amount of ascites. Intrahepatic IVC is markedly dilated. 2. Previously identified bilateral pleural effusions are significantly improved with only a small amount of fluid on the left. There is some persistent atelectasis in the left base. 3. Heart size remains prominent. 4. Otherwise stable. Mt Alvarez MD Physical Exam HEENT: Normocephalic; atraumatic; no jaundice. Orotracheally intubated. CHEST: CTA CARDIAC: RRR ABDOMEN: Distended, nontender. OGT to LIWS. Rectal tube to gravity. EXTREMITIES: 1 + LE edema DESIGN COORDINATOR: Sedated on vent. (Stephanie Pro) Assessment and Plan Plan ASSESSMENT: - Severe ileus. High residuals and progressively worsening distention over the past few days. OGT to LIWS. Reglan 5mg IV q8h, Senokot 17.2 q12h, Miralax 17gram BID, Lactulose 30mL po BID. CT scan 02/03 without bowel obstruction. S/P Relistor (02/20) S/P SSE x 2 (02/20), Rectal tube to gravity. Rpt. KUB (02/21/17)---> Interval placement of small bore rectal catheter, interval improvement in bowel gas patter, dense consolidation remains left lung base. KUB 02/22/17- -1. No significant change in the bowel gas pattern. 2. Dense consolidation remains in the left lung base.KUB 02/23/17--1. No significant change in the bowel gas pattern. 2. Dense consolidation remains in the left lung base. Will continue bowel regimen. Okay for trickle feeds - Respiratory failure with COPD, pulmonary edema, and possible LLL HCAP. Vent per [facility]. - Ischemic CMP, CHF, CAD, afib. Amiodarone. On heparin. - HARVEY with multiple electrolyte abnormalities. Worsening renal function. - Anemia, normocytic. 8.5//7. No obvious active bleeding. - Metabolic encephalopathy, elevated ammonia. On lactulose. - MSSA abscess left breast, s/p I&D left breast hematoma 02/10 PLAN: - Nepro at 10cc/hr - Cont. Reglan - Cont. Lactulose to BID - Cont. Miralax - Cont. Senokot, Colace - S/P Relistor (02/20/17) - S/P SSE x 2 (02/20/17) - Rectal tube to gravity - Supportive care - Further recommendations to follow based on results of above Patient seen and examined by Dr. Garcias and myself and this note is written on his behalf (Stephanie Pro) Physician Comments Seen and examined with [employer], persistent illeus. Continue bowel regimen, if no improvement decompression colonoscopy next week. (Caity Garcias MD) Stephanie Pro Feb 23, 2017 12:59 Caity Garcias MD Feb 23, 2017 13:11
--- NOTE | 2017-02-23 14:58 | HHI.NPPN ---
Subjective History of Present Illness 71 year old female with ARF/CHF.Hematoma Left breast Additional Remarks intubated Objective Data Data 02/23/17 02/24/17 19:00 07:00 Intake Total 1953 ml Output Total 1300 ml Balance 653 ml IV Total 1953 ml Output Urine Total 850 ml Stool Total 450 ml Vital Signs Date Time Temp Pulse Resp B/P (MAP) Pulse Ox O2 Delivery O2 Flow Rate FiO2 02/23/17 12:35 40 02/23/17 12:00 97.6 69 23 144/63 (90) 100 02/23/17 12:00 69 02/23/17 11:28 40 02/23/17 11:20 40 02/23/17 11:20 100 40 02/23/17 08:17 100 Ventilator 40 02/23/17 08:17 100 40 02/23/17 08:00 40 02/23/17 08:00 71 02/23/17 08:00 98.3 71 16 117/54 (75) 100 02/23/17 06:00 40 02/23/17 06:00 68 02/23/17 04:10 100 40 02/23/17 04:00 68 02/23/17 04:00 98.3 72 16 124/53 (76) 100 02/23/17 04:00 40 02/23/17 02:00 68 02/23/17 02:00 40 02/23/17 00:00 40 02/23/17 00:00 68 02/23/17 00:00 97.9 71 16 118/52 (74) 100 02/22/17 23:06 100 40 02/22/17 22:00 64 02/22/17 20:00 62 02/22/17 20:00 97.8 64 16 116/68 (84) 100 02/22/17 20:00 40 02/22/17 19:50 100 40 02/22/17 19:32 40 02/22/17 19:32 62 02/22/17 19:30 66 02/22/17 19:00 100 Mechanical Ventilator 40 02/22/17 18:00 66 02/22/17 16:03 65 02/22/17 16:00 97.7 66 16 116/58 (77) 100 02/22/17 16:00 40 -: 02/23/17 0520 02/23/17 1040 Physical Exam General Appearance: Well Developed Neck Neck Exam: Neck Supple Pulmonary Resp Exam: Decreased Bases Cardiology CV Exam: Regular Gastrointestinal/Abdomen GI Exam: Distended, Bowel Sounds Hypoactive Extremeties Extremities Exam: Pitting Edema Assessment/Plan Problem List: (1) HARVEY (acute kidney injury) ICD Codes: N17.9 - Acute kidney failure, unspecified Status: Acute Plan: Patient has congestive heart failure Lasix drip is off. 850 cc of urine last shift K normal VRE on Zyvox . Creatinine 2.7 family informed of worsening renal failure . Lasix drip was stopped She has abdominal distention and ileus, rectal tube improved, D10 42 cc/hr Avoid nephrotoxins follow BMP (2) Hematoma (nontraumatic) of breast ICD Codes: N64.89 - Other specified disorders of breast Plan: Surgically operated on (3) Bilateral lower extremity edema ICD Codes: R60.0 - Bilateral lower extremity edema Status: Acute Plan: Due to congestive heart failure (4) CHF (congestive heart failure) ICD Codes: I50.9 - CHF (congestive heart failure) Status: Chronic Plan: Better off diuretic (5) UTI (urinary tract infection) ICD Codes: N39.0 - UTI (urinary tract infection) Status: Acute Plan: VRE on Zyvox and cefepime Problem Qualifiers (1) CHF (congestive heart failure): Qualified Codes: I50.33 - Acute on chronic diastolic (congestive) heart failure Laurel Love MD Feb 23, 2017 14:58
[2017-02-24] VITALS (18 sets, daily range): BP systolic 105–153; BP diastolic 48–65; PULSE 60–78; RESP 16–27; TEMP 98–99; O2SAT 100
[2017-02-24] MEDS: ALBUMIN 25% INJ 100 ML IV SCH ×3 (02:00→18:28)
[2017-02-24] MEDS: CEFEPIME INJ 1,000 MG in SODIUM CHLORIDE 0.9% INJ 100 ML IV SCH ×2 (02:00→14:38)
[2017-02-24] MEDS: CHLORHEXIDINE GLUCONATE 2 % 1 PACK (2 CLOTHS) TOP SCH (02:07)
[2017-02-24] MEDS: RESP: ALBUTEROL 2.5 MG/IPRATROPIUM 0.5 MG NEB (SCH) INH ×5 (02:34→20:49)
[2017-02-24 05:31] LABS: ALT (GPT) 8 U/L (10-53); ANION GAP 11 MEQ/L (5-15); AST (GOT) 10 U/L (15-37); BICARBONATE 23.3 MEQ/L (21.0-32.0); CHLORIDE 99 MEQ/L (98-107); GLOMERULAR FILTRATION RATE 16 ML/MIN (>89); POTASSIUM 3.5 MEQ/L (3.5-5.1); SODIUM (NA) 133 MEQ/L (136-145)
[2017-02-24 05:32] LABS: BLOOD UREA NITROGEN 36 MG/DL (7-18); TOTAL BILIRUBIN ADULT 1.3 MG/DL (0.2-1.0)
[2017-02-24 05:33] LABS: ALKALINE PHOSPHATASE 49 U/L (45-117)
[2017-02-24] MEDS: SILDENAFIL CITRATE 20 MG TAB PO SCH ×3 (05:40→21:40)
[2017-02-24] MEDS: METOCLOPRAMIDE HCL 10 MG/2 ML VIAL IV PUSH SCH ×3 (05:40→21:38)
[2017-02-24] MEDS: LINEZOLID 600 MG PREMIX 300 ML IV SCH ×2 (05:40→17:17)
[2017-02-24] MEDS: INSULIN ASPART SUPPLEMENTAL SCALE SQ SCH ×4 (05:50→18:00)
--- NOTE | 2017-02-24 09:05 | HHI.GIFU ---
Subjective Remarks eyes closed , grimmace minimal to abd. palpation and stimuli. rectal tube intact, no sedation, ventilator support, 30% FIO2 afebrile No family present, Palliative care following Objective Vitals I&O Vital Signs Date Time Temp Pulse Resp B/P (MAP) Pulse Ox O2 Delivery O2 Flow Rate FiO2 02/24/17 08:18 100 30 02/24/17 06:00 78 02/24/17 06:00 30 02/24/17 04:00 30 02/24/17 04:00 98.7 72 16 138/62 (87) 100 02/24/17 04:00 72 02/24/17 03:56 100 30 02/24/17 02:00 30 02/24/17 02:00 68 02/24/17 01:40 100 40 02/24/17 00:00 30 02/24/17 00:00 68 02/24/17 00:00 98.0 68 16 153/65 (94) 100 02/23/17 22:56 100 30 02/23/17 22:00 68 02/23/17 22:00 40 02/23/17 20:00 98.1 68 22 119/57 (77) 100 02/23/17 20:00 40 02/23/17 20:00 68 02/23/17 19:44 100 30 02/23/17 19:00 100 Mechanical Ventilator 40 02/23/17 17:25 100 40 02/23/17 16:00 67 02/23/17 16:00 96.5 67 22 137/60 (85) 100 02/23/17 12:35 40 02/23/17 12:00 97.6 69 23 144/63 (90) 100 02/23/17 12:00 69 02/23/17 11:28 40 02/23/17 11:20 40 02/23/17 11:20 100 40 I/O 02/23/17 02/23/17 02/23/17 02/24/17 02/24/17 02/24/17 07:00 15:00 23:00 07:00 15:00 23:00 Intake Total 1953 ml 863 ml 200 ml Output Total 1300 ml 1500 ml 1200 ml Balance 653 ml -637 ml -1000 ml IV Total 1953 ml 863 ml 200 ml Output Urine Total 850 ml 300 ml 50 ml Stool Total 450 ml 750 ml 850 ml Gastric Drainage Total 450 ml 300 ml Laboratory Laboratory Tests Test 02/23/17 10:40 02/24/17 04:40 Potassium Level 3.9 3.5 Blood Urea Nitrogen 36 Creatinine 3.43 Random Glucose 95 Total Protein 8.1 Albumin 5.0 Calcium Level 9.1 Alkaline Phosphatase 49 Aspartate Amino Transf (AST/SGOT) 10 Alanine Aminotransferase (ALT/SGPT) 8 Total Bilirubin 1.3 Sodium Level 133 Chloride Level 99 Carbon Dioxide Level 23.3 Anion Gap 11 Estimat Glomerular Filtration Rate 16 Date/Time Source Procedure Growth Status 02/20/17 08:37 Blood Peripheral Aerobic Blood Culture - Preliminary NO GROWTH IN 3 DAYS Resulted 02/20/17 08:37 Blood Peripheral Anaerobic Blood Culture - Preliminary NO GROWTH IN 3 DAYS Resulted 02/10/17 17:33 Fluid Other Fungal Smear - Final NO FUNGAL ELEMENTS SEEN. Resulted 02/10/17 17:33 Fluid Other Fungal Culture - Preliminary NO GROWTH IN 1 WEEK Resulted 02/20/17 08:45 Sputum Endotracheal Gram Stain - Final Complete 02/20/17 08:45 Sputum Endotracheal Sputum Culture - Final HEAVY GROWTH NORMAL RESPIRATORY MARGARITA Complete 02/20/17 08:45 Urine Catheterized Urine Urine Culture - Final Enterococcus Faecium Vre Florina Albicans Complete 02/10/17 17:33 Wound Other Fungal Smear - Final NO FUNGAL ELEMENTS SEEN. Resulted 02/10/17 17:33 Wound Other Fungal Culture - Preliminary NO GROWTH IN 1 WEEK Resulted Imaging Last Impressions Chest X-Ray 02/23/17 0600 Signed Impressions: Service Date/Time: Thursday, February 23, 2017 04:45 - CONCLUSION: Mildly rotated study with no significant change. Dense consolidation remains at the left lung base and there is more hazy opacity at the right lower lobe. Sergio Haro MD Abdomen X-Ray 02/23/17 0600 Signed Impressions: Service Date/Time: Thursday, February 23, 2017 04:53 - CONCLUSION: 1. No significant change in the bowel gas pattern. 2. Dense consolidation remains in the left lung base. Sergio Haro MD Head CT 02/11/17 0000 Signed Impressions: Service Date/Time: Saturday, February 11, 2017 04:32 - CONCLUSION: Normal examination. Tyrone Simmons MD Chest CT 02/11/17 0000 Signed Impressions: Service Date/Time: Saturday, February 11, 2017 22:16 - CONCLUSION: Heart is quite enlarged. ET tube is in good position. There is a dense consolidation involving almost the entire left lower lobe with small left pleural effusion. There is a moderate size right pleural effusion measuring 3.2 x 6.0 cm across. Tyrone Simmons MD Renal Ultrasound 02/10/17 0000 Signed Impressions: Service Date/Time: Friday, February 10, 2017 23:06 - CONCLUSION: Normal examination. No evidence of obstruction or hydronephrosis.. Tyrone Simmons MD Breast Ultrasound 02/03/17 0000 Signed Impressions: Service Date/Time: Friday, February 03, 2017 18:49 - CONCLUSION: Complex cystic lesion measuring up to 11.8 cm centered at the 12:00 position left breast. Given the clinical history of recent procedure in this area this could represent a noninfected or infected fluid collection. Given the complex internal architecture, percutaneous drainage will likely not be successful. Once the patient's condition permits, consider outpatient diagnostic mammogram and ultrasound followup. Gregory Bob MD ADDENDUM: Another consideration given the prior CT appearance and current imaging findings is an old hematoma. Gregory Bob MD Abdomen/Pelvis CT 02/03/17 0000 Signed Impressions: Service Date/Time: Friday, February 03, 2017 17:35 - CONCLUSION: 1. CT findings characteristic of right heart insufficiency with diffuse but stable anasarca in the visible soft tissues and leaves of the mesentery as well as a small amount of ascites. Intrahepatic IVC is markedly dilated. 2. Previously identified bilateral pleural effusions are significantly improved with only a small amount of fluid on the left. There is some persistent atelectasis in the left base. 3. Heart size remains prominent. 4. Otherwise stable. Mt Alvarez MD Physical Exam HEENT: Normocephalic; atraumatic; pale mm. Oral intubated. CHEST: rhonchi, decreased BS Left base CARDIAC: RRR ABDOMEN: taut, Distended, mild grimmace to light palpation. OGT to LIWS. 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 Assessment and Plan Plan ASSESSMENT: - Severe ileus. High residuals and progressively worsening distention over the past few days. OGT to LIWS. Senokot 17.2 q12h, Miralax 17gram BID, Lactulose 30mL po BID. CT scan 02/03 without bowel obstruction. S/P Relistor (02/20) S/P SSE x 2 (02/20), Rectal tube to gravity. Rpt. KUB (02/21/17)---> Interval placement of small bore rectal catheter, interval improvement in bowel gas patter, dense consolidation remains left lung base. KUB 02/22/17- -1. No significant change in the bowel gas pattern. 2. Dense consolidation remains in the left lung base.KUB 02/23/17--1. No significant change in the bowel gas pattern, no active BS, Abd. mild softer UQ. 2. Dense consolidation remains in the left lung base. Will continue bowel regimen. - Respiratory failure with COPD, pulmonary edema, continues with consolidation LLL, Possible HCAP. Vent per CCM. Amiodarone PO, Heparin SC for DVT prophy. - HARVEY with multiple electrolyte abnormalities. renal function, creat 2.8 , UOP 850/24hrs. - Anemia, No obvious active bleeding, Hgb 8.5 - Metabolic encephalopathy, mild clinical improvement with ventilator weaning, no sedation for now. - MSSA abscess left breast, s/p I&D left breast hematoma 02/10 PLAN: - Cont. Reglan - Cont. Lactulose to BID - Cont. Miralax - Cont. Senokot, Colace - S/P Relistor (02/20/17) - S/P SSE x 2 (02/20/17) - Rectal tube to gravity - Supportive care, Palliative care , Possible withdrawal of care, but to be readdressed today per Intensivists. NOTE: PM, Palliative care plan for withdrawal in am. - Further recommendations to follow based on results of above Patient seen and examined by Dr. Deng and myself and this note is written on his behalf Adamaris Chen Feb 24, 2017 09:05
[2017-02-24] MEDS: PANTOPRAZOLE SODIUM 40 MG VIAL IV PUSH SCH (09:18)
[2017-02-24] MEDS: AMANTADINE HCL SOLN 100 MG/10 ML UDC PO SCH ×2 (09:18→21:27)
[2017-02-24] MEDS: CARVEDILOL 3.125 MG TAB PO SCH ×2 (09:18→21:27)
[2017-02-24] MEDS: LACTULOSE SYRUP 20 GM/30 ML CUP PO SCH ×2 (09:18→21:00)
[2017-02-24] MEDS: BISACODYL 10 MG SUPP RECTAL SCH (09:18)
[2017-02-24] MEDS: MODAFINIL 200 MG TAB PO SCH (09:18)
[2017-02-24] MEDS: FERROUS SULFATE 325 MG (65 MG ELEMENTAL IRON) TAB PO SCH ×2 (09:18→21:27)
[2017-02-24] MEDS: POLYETHYLENE GLYCOL 17 GM PKG PO SCH ×2 (09:18→21:00)
[2017-02-24] MEDS: MAGNESIUM HYDROXIDE SUSP 30 ML CUP PO SCH ×2 (09:18→21:00)
[2017-02-24] MEDS: DOCUSATE SODIUM 50 MG/SENNA 8.6 MG TAB PO SCH ×2 (09:19→21:00)
[2017-02-24] MEDS: SENNOSIDES 8.6 MG TAB PO SCH ×2 (09:19→21:00)
[2017-02-24] MEDS: AMIODARONE 200 MG TAB PO SCH (09:19)
[2017-02-24] MEDS: SODIUM CHLORIDE 0.9% FLUSH 10 ML FLUSH IV FLUSH SCH ×2 (09:19→21:00)
[2017-02-24] MEDS: HEPARIN SODIUM - SQ 10,000 UNITS/ML VIAL SQ SCH ×2 (09:19→21:27)
[2017-02-24] MEDS: CHLORHEXIDINE 0.12% (ORAL KIT) 15 ML CUP MT SCH ×2 (09:20→20:00)
[2017-02-24] MEDS: ARTIFICIAL TEARS OPTH SOLN 15 ML BTL EACH EYE SCH ×3 (09:20→18:28)
--- NOTE | 2017-02-24 11:28 | HHI.HCPN ---
Reason for visit a. To assist with evaluation and management of symptoms including:dyspnea, debility b. To assist medical decision maker(s) with: better understanding of current medical conditions; weighing benefits/burdens of medical treatment options; making medical treatment decisions. Subjective/Interval History Patient seen today for follow up regarding goals of care, examined in room, daughters at bedside, patient's brother, and multiple family members. After meeting with family on Friday, they planned to transition to comfort focused goals and withdraw artificial life support on Friday, however this was postponed and planned for today, Friday instead. Bedside meeting with patient's family to discuss goals of care, discussed the potential for the patient to meet criteria to safely medically extubate, however renal function continues to worsen and the need for hemodialysis. Discussed aggressive goals of care versus comfort focused goals. Family would like to discuss this among themselves further and plan to reconvene at 1600 with Palliative care to discuss. Palliative Care will continue to assist with symptom management and to discuss with the patient's family the benefits and burdens of her current illnesses and the options regarding future care. Interval history: Patient is a 71 year old female with a past medical history significant for CHF , chronic atrial fibrillation anticoagulated on Coumadin, COPD on home oxygen, HTN, and diabetes mellitus who presented to the ED after being evaluated by Dr. Feliciano in the office on 02/04/17 for a erythematous, edematous, left breast where her AICD was recently removed secondary to infection with endocarditis. Upon presentation patient complained of shortness of breath, abdominal distention, lower extremity edema, and a 50 pound weight gain over the past month. The patient presented to the ED on 11/28/16 for left breast pain and swelling, at that time she was discharged from the emergency department with a prescription for clindamycin. The patient returned to ED on 12/10/16 and was hospitalized until 12/27/16 for severe sepsis and left breast cellulitis, during that hospitalization the patient was found to have blood cultures positive for MSSA, underwent a AICD and lead extraction on 12/18/16, was found to iron deficiency anemia, and acute kidney injury. The patient was discharged home with home oxygen and a LifeVest. 02/07/17: Cardiothoracic surgery reconsulted to evaluate left chest hematoma, 02/10/17: patient taken to the OR for I&D of left breast hematoma, 600mL fluid drained from chest wall/left breast. Critical care management consulted due to respiratory compromise post operatively, patient originally requiring respiratory support via BiPAP, however she became unresponsive, hypotensive likely secondary to cardiogenic/septic shock, and was subsequently intubated, placed on vasopressors. Patient continued to have a complicated ICU stay over the following week secondary to fluid volume overload , CHF, respiratory failure, ongoing renal failure, liver failure, encephalopathy , and adynamic ileus. Family/friend interactions Family meeting in conference room with patient's daughters Vivi Shelby, patient's two sisters, and granddaughters. Also present and Criselda,ANGEL with Hospice. Advance Directives Living Will: Never completed Health Care Surrogate: Never completed Durable Power of Rail Doweling Machine Operator: Never completed Objective Vital Signs Date Time Temp Pulse Resp B/P (MAP) Pulse Ox O2 Delivery O2 Flow Rate FiO2 02/24/17 08:18 100 30 02/24/17 06:00 78 02/24/17 06:00 30 02/24/17 04:00 30 02/24/17 04:00 98.7 72 16 138/62 (87) 100 02/24/17 04:00 72 02/24/17 03:56 100 30 02/24/17 02:00 30 02/24/17 02:00 68 02/24/17 01:40 100 40 02/24/17 00:00 30 02/24/17 00:00 68 02/24/17 00:00 98.0 68 16 153/65 (94) 100 02/23/17 22:56 100 30 02/23/17 22:00 68 02/23/17 22:00 40 02/23/17 20:00 98.1 68 22 119/57 (77) 100 02/23/17 20:00 40 02/23/17 20:00 68 02/23/17 19:44 100 30 02/23/17 19:00 100 Mechanical Ventilator 40 02/23/17 17:25 100 40 02/23/17 16:00 67 02/23/17 16:00 96.5 67 22 137/60 (85) 100 02/23/17 12:35 40 02/23/17 12:00 97.6 69 23 144/63 (90) 100 02/23/17 12:00 69 02/23/17 11:28 40 02/23/17 11:20 40 02/23/17 11:20 100 40 Intake & Output 02/24/17 02/24/17 07:00 19:00 Intake Total 200 ml Output Total 1200 ml Balance -1000 ml IV Total 200 ml Output Urine Total 50 ml Stool Total 850 ml Gastric Drainage Total 300 ml . Physical Exam CONSTITUTIONAL/GENERAL: This is a critically ill elderly appearing female patient, intubated, and mechanically ventilated. TUBES/LINES/DRAINS: PICC line RUE, PIV x1, ellis catheter SKIN: No jaundice, rashes, or lesions. Ecchymoses on upper extremities. Left breast incision covered with bandage. Skin temperature appropriate. Not diaphoretic. CARDIOVASCULAR: Regular rate and rhythm without murmurs, gallops, or rubs. Peripheral pulses symmetric. RESPIRATORY/CHEST: Symmetric, mechanically ventilated. Course crackles throughout. Breath sounds equal bilaterally. GASTROINTESTINAL: Abdomen firm, distended. Bowel sounds hypoactive. GENITOURINARY: Ellis catheter. Anuric. MUSCULOSKELETAL: Extremities without clubbing, cyanosis. NEUROLOGICAL: Drowsy. Opens eyes spontaneously. Follows simple one step commands. PSYCHIATRIC: Unable to assess secondary to clinical condition. . Diagnostic Tests Laboratory Laboratory Tests Test 02/21/17 17:55 02/22/17 02:53 02/22/17 13:25 02/22/17 22:57 Potassium Level 2.9 MEQ/L (3.5-5.1) 2.8 MEQ/L (3.5-5.1) 3.2 MEQ/L (3.5-5.1) Stool C. difficile Toxin (PCR) NEGATIVE (NEGATIVE) Stl C. difficile Toxin Epiderm 027 PRESUMPTIVE NEGATIVE Test 02/23/17 05:20 02/23/17 10:40 02/24/17 04:40 White Blood Count 5.5 TH/MM3 (4.0-11.0) Red Blood Count 2.99 MIL/MM3 (4.00-5.30) Hemoglobin 8.5 GM/DL (11.6-15.3) Hematocrit 25.7 % (35.0-46.0) Mean Corpuscular Volume 86.1 FL (80.0-100.0) Mean Corpuscular Hemoglobin 28.4 PG (27.0-34.0) Mean Corpuscular Hemoglobin Concent 33.0 % (32.0-36.0) Red Cell Distribution Width 20.8 % (11.6-17.2) Platelet Count 257 TH/MM3 (150-450) Mean Platelet Volume 7.6 FL (7.0-11.0) Neutrophils (%) (Auto) 73.3 % (16.0-70.0) Lymphocytes (%) (Auto) 10.6 % (9.0-44.0) Monocytes (%) (Auto) 12.4 % (0.0-8.0) Eosinophils (%) (Auto) 2.5 % (0.0-4.0) Basophils (%) (Auto) 1.2 % (0.0-2.0) Neutrophils # (Auto) 4.0 TH/MM3 (1.8-7.7) Lymphocytes # (Auto) 0.6 TH/MM3 (1.0-4.8) Monocytes # (Auto) 0.7 TH/MM3 (0-0.9) Eosinophils # (Auto) 0.1 TH/MM3 (0-0.4) Basophils # (Auto) 0.1 TH/MM3 (0-0.2) CBC Comment DIFF FINAL Differential Comment Blood Urea Nitrogen 36 MG/DL (7-18) 36 MG/DL (7-18) Creatinine 2.78 MG/DL (0.50-1.00) 3.43 MG/DL (0.50-1.00) Random Glucose 94 MG/DL (74-106) 95 MG/DL (74-106) Total Protein 7.2 GM/DL (6.4-8.2) 8.1 GM/DL (6.4-8.2) Albumin 4.4 GM/DL (3.4-5.0) 5.0 GM/DL (3.4-5.0) Calcium Level 8.6 MG/DL (8.5-10.1) 9.1 MG/DL (8.5-10.1) Alkaline Phosphatase 47 U/L (45-117) 49 U/L (45-117) Aspartate Amino Transf (AST/SGOT) 12 U/L (15-37) 10 U/L (15-37) Alanine Aminotransferase (ALT/SGPT) 7 U/L (10-53) 8 U/L (10-53) Total Bilirubin 1.3 MG/DL (0.2-1.0) 1.3 MG/DL (0.2-1.0) Sodium Level 136 MEQ/L (136-145) 133 MEQ/L (136-145) Potassium Level 3.7 MEQ/L (3.5-5.1) 3.9 MEQ/L (3.5-5.1) 3.5 MEQ/L (3.5-5.1) Chloride Level 102 MEQ/L (98-107) 99 MEQ/L (98-107) Carbon Dioxide Level 23.9 MEQ/L (21.0-32.0) 23.3 MEQ/L (21.0-32.0) Anion Gap 10 MEQ/L (5-15) 11 MEQ/L (5-15) Estimat Glomerular Filtration Rate 20 ML/MIN (>89) 16 ML/MIN (>89) . Result Diagram: 02/23/17 0520 02/24/17 0440 Imaging Last 72 hours Impressions Chest X-Ray 02/23/17 06 Signed Impressions: Service Date/Time: Thursday, February 23, 2017 04:45 - CONCLUSION: Mildly rotated study with no significant change. Dense consolidation remains at the left lung base and there is more hazy opacity at the right lower lobe. Sergio Haro MD Abdomen X-Ray 02/23/17 06 Signed Impressions: Service Date/Time: Thursday, February 23, 2017 04:53 - CONCLUSION: 1. No significant change in the bowel gas pattern. 2. Dense consolidation remains in the left lung base. Sergio Haro MD Abdomen X-Ray 02/22/17 06 Signed Impressions: Service Date/Time: Wednesday, February 22, 2017 04:28 - CONCLUSION: 1. No significant change in the bowel gas pattern. 2. Dense consolidation remains in the left lung base. Sergio Haro MD . Procedures 02/10/17: I&D left breast 02/10/17:Intubated Assessment and Plan Disease Oriented Problem List: (1) CHF (congestive heart failure) (2) Respiratory failure with hypercapnia (3) Anasarca (4) AICD generator infection Symptom Scale: (1) Debility (2) Dyspnea Pertinent Non-Medical Issues Psychosocial: Patient is originally from [place], she is , she had five children, only two daughters still living. Spiritual: Yarsanism. Legal: None known. Ethical issues impacting care: None known. Important Contacts Damaris Dailey () [phone] Desi Burrell (daughter) [phone] . Prognosis Patient has a long standing history of cardiomyopathy, CHF, COPD, now with respiratory failure, ARF, liver failure, and adynamic ileus. Patient is critically ill, intubated on mechanical ventilation in multiorgan failure. Due to patient's advanced age, multiple comorbidities, and debilitated status she is at an ongoing risk for complications/setbacks. Code Status: No Code Plan Plan * Legal decision maker: Patient is currently not capacitated to make informed medical decisions independently. It is unclear if she will regain capacity. Patient does not have any previous written advanced directives, per [place] statutes in the absence of written advanced directives health care decision making would fall to her next of kin which is her . Patient's Damaris Dailey has opted out of medical decision making, per [place] statutes decision making would fall to the patient's two adult daughters, Afsaneh and Desi who have both confirmed they will serve as their mother's health care proxies. * Goals: Comfort focused. Meeting with patient's family today at 1600, discussed prognosis, goals of care, and aggressive goals of care versus transition to comfort focused goals. * Family plan's to withdraw artificial life support tomorrow at 1000. * CODE STATUS: DNR. * SYMPTOMS: --Dyspnea: Multifactorial, secondary to CHF, COPD, fluid volume overload, respiratory failure, etc. Patient is currently intubated and mechanically ventilated. No recommendations at this time. --Debility: Patient has had multiple complicated hospital stays in recent months in addition to multiple comorbidities already present contributing to debilitated status. Patient is currently critically ill and unable to participate in any PT/OT. No recommendations at this time. * Palliative care will continue to follow during hospital course as condition evolves, to assist patient/decision-maker with understanding of medical conditions, weighing benefits/burdens of treatment options, for clarification of goals of treatment. Additionally will assist with any symptoms of palliative concern Attestation To help prompt me to consider important information that might be impacting today's encounter and assessment, information from prior notes written by myself or my colleagues may have been "brought forward" into today's note. My signature on this note, however, is an attestation that I personally performed the exam, history, and/or decision-making noted today, and, unless otherwise indicated, the interactions with patient, family, and staff as well as the review of records all occurred today. I also attest that the listed assessment and stated plan reflect my best clinical judgment today based on the combination of historical information, prior notes, and today's exam/ interactions. When time spent is documented, it refers only to time spent today by the signer, or if indicated, combined time spent today by collaborating physician/nurse practitioner. Sunshine Cagle Feb 24, 2017 11:28
--- NOTE | 2017-02-24 14:17 | HHI.IDPN ---
Subjective Subjective Remarks pt had VRE in her urine, started on zyvox creatinine is up to 3.43 today afebrile Antibiotics cefepime - started on 02/20 zyvox Allergies: Coded Allergies: penicillin G (Unverified Allergy, Severe, rash, 12/31/16) benazepril (Unverified Allergy, Mild, 12/31/16) HUMBLE inhibitor angioedema, swelling of the face lips and anterior tongue captopril (Unverified Allergy, Mild, 12/31/16) HUMBLE inhibitor angioedema, swelling of the face lips and anterior tongue enalaprilat (Unverified Allergy, Mild, 12/31/16) HUMBLE inhibitor angioedema, swelling of the face lips and anterior tongue fosinopril (Unverified Allergy, Mild, 12/31/16) HUMBLE inhibitor angioedema, swelling of the face lips and anterior tongue lisinopril (Unverified Allergy, Mild, 12/31/16) HUMBLE inhibitor angioedema, swelling of the face lips and anterior tongue quinapril (Unverified Allergy, Mild, 12/31/16) HUMBLE inhibitor angioedema, swelling of the face lips and anterior tongue Uncoded Allergies: NON COMPATIBLE PACEMAKER (Adverse Reaction, Severe, MRI PRECAUTION / PACEMAKER, 11/03/14) MRI PRECAUTION. PACEMAKER Objective . Vital Signs Date Time Temp Pulse Resp B/P (MAP) Pulse Ox O2 Delivery O2 Flow Rate FiO2 02/24/17 12:31 100 30 02/24/17 08:18 100 30 02/24/17 06:00 78 02/24/17 06:00 30 02/24/17 04:00 30 02/24/17 04:00 98.7 72 16 138/62 (87) 100 02/24/17 04:00 72 02/24/17 03:56 100 30 02/24/17 02:00 30 02/24/17 02:00 68 02/24/17 01:40 100 40 02/24/17 00:00 30 02/24/17 00:00 68 02/24/17 00:00 98.0 68 16 153/65 (94) 100 02/23/17 22:56 100 30 02/23/17 22:00 68 02/23/17 22:00 40 02/23/17 20:00 98.1 68 22 119/57 (77) 100 02/23/17 20:00 40 02/23/17 20:00 68 02/23/17 19:44 100 30 02/23/17 19:00 100 Mechanical Ventilator 40 02/23/17 17:25 100 40 02/23/17 16:00 67 02/23/17 16:00 96.5 67 22 137/60 (85) 100 . Laboratory Tests Test 02/23/17 05:20 White Blood Count 5.5 TH/MM3 Red Blood Count 2.99 MIL/MM3 Hemoglobin 8.5 GM/DL Hematocrit 25.7 % Mean Corpuscular Volume 86.1 FL Mean Corpuscular Hemoglobin 28.4 PG Mean Corpuscular Hemoglobin Concent 33.0 % Red Cell Distribution Width 20.8 % Platelet Count 257 TH/MM3 Mean Platelet Volume 7.6 FL Neutrophils (%) (Auto) 73.3 % Lymphocytes (%) (Auto) 10.6 % Monocytes (%) (Auto) 12.4 % Eosinophils (%) (Auto) 2.5 % Basophils (%) (Auto) 1.2 % Neutrophils # (Auto) 4.0 TH/MM3 Lymphocytes # (Auto) 0.6 TH/MM3 Monocytes # (Auto) 0.7 TH/MM3 Eosinophils # (Auto) 0.1 TH/MM3 Basophils # (Auto) 0.1 TH/MM3 CBC Comment DIFF FINAL Differential Comment Laboratory Tests Test 02/22/17 22:57 02/23/17 05:20 02/23/17 10:40 02/24/17 04:40 Potassium Level 3.2 MEQ/L 3.7 MEQ/L 3.9 MEQ/L 3.5 MEQ/L Blood Urea Nitrogen 36 MG/DL 36 MG/DL Creatinine 2.78 MG/DL 3.43 MG/DL Random Glucose 94 MG/DL 95 MG/DL Total Protein 7.2 GM/DL 8.1 GM/DL Albumin 4.4 GM/DL 5.0 GM/DL Calcium Level 8.6 MG/DL 9.1 MG/DL Alkaline Phosphatase 47 U/L 49 U/L Aspartate Amino Transf (AST/SGOT) 12 U/L 10 U/L Alanine Aminotransferase (ALT/SGPT) 7 U/L 8 U/L Total Bilirubin 1.3 MG/DL 1.3 MG/DL Sodium Level 136 MEQ/L 133 MEQ/L Chloride Level 102 MEQ/L 99 MEQ/L Carbon Dioxide Level 23.9 MEQ/L 23.3 MEQ/L Anion Gap 10 MEQ/L 11 MEQ/L Estimat Glomerular Filtration Rate 20 ML/MIN 16 ML/MIN Imaging Last Impressions Chest X-Ray 02/23/17599 Signed Impressions: Service Date/Time: Thursday, February 23, 2017 04:45 - CONCLUSION: Mildly rotated study with no significant change. Dense consolidation remains at the left lung base and there is more hazy opacity at the right lower lobe. Sergio Haro MD Abdomen X-Ray 02/23/17599 Signed Impressions: Service Date/Time: Thursday, February 23, 2017 04:53 - CONCLUSION: 1. No significant change in the bowel gas pattern. 2. Dense consolidation remains in the left lung base. Sergio Haro MD Head CT 02/11/17 0000 Signed Impressions: Service Date/Time: Saturday, February 11, 2017 04:32 - CONCLUSION: Normal examination. Tyrone Simmons MD Chest CT 02/11/17 0000 Signed Impressions: Service Date/Time: Saturday, February 11, 2017 22:16 - CONCLUSION: Heart is quite enlarged. ET tube is in good position. There is a dense consolidation involving almost the entire left lower lobe with small left pleural effusion. There is a moderate size right pleural effusion measuring 3.2 x 6.0 cm across. Tyrone Simmons MD Renal Ultrasound 02/10/17 0000 Signed Impressions: Service Date/Time: Friday, February 10, 2017 23:06 - CONCLUSION: Normal examination. No evidence of obstruction or hydronephrosis.. Tyrone Simmons MD Breast Ultrasound 02/03/17 0000 Signed Impressions: Service Date/Time: Friday, February 03, 2017 18:49 - CONCLUSION: Complex cystic lesion measuring up to 11.8 cm centered at the 12:00 position left breast. Given the clinical history of recent procedure in this area this could represent a noninfected or infected fluid collection. Given the complex internal architecture, percutaneous drainage will likely not be successful. Once the patient's condition permits, consider outpatient diagnostic mammogram and ultrasound followup. Gregory Bob MD ADDENDUM: Another consideration given the prior CT appearance and current imaging findings is an old hematoma. Gregory Bob MD Abdomen/Pelvis CT 02/03/17 0000 Signed Impressions: Service Date/Time: Friday, February 03, 2017 17:35 - CONCLUSION: 1. CT findings characteristic of right heart insufficiency with diffuse but stable anasarca in the visible soft tissues and leaves of the mesentery as well as a small amount of ascites. Intrahepatic IVC is markedly dilated. 2. Previously identified bilateral pleural effusions are significantly improved with only a small amount of fluid on the left. There is some persistent atelectasis in the left base. 3. Heart size remains prominent. 4. Otherwise stable. Mt Alvarez MD Physical Exam CONSTITUTIONAL/GENERAL: This is an adequately nourished patient, in no apparent distress. TUBES/LINES/DRAINS: SKIN: No jaundice, rashes, or lesions. Skin temperature appropriate. Not diaphoretic. L breast dressing in place, less edematous HEENT: orally intubated CARDIOVASCULAR: Regular rate and rhythm without murmurs, gallops, or rubs. No JVD. Peripheral pulses symmetric. RESPIRATORY/CHEST: Symmetric, unlabored respirations. Clear to auscultation. Breath sounds equal bilaterally. No wheezes, rales, or rhonchi. GASTROINTESTINAL: Abdomen soft, no reaction to , distended . No hepato- splenomegaly, or palpable masses. No guarding. Bowel sounds present. dignishield in place with light brown liquid stool GENITOURINARY: Without palpable bladder distension. Wolff catheter in place with clear light yellow urine MUSCULOSKELETAL: Extremities without clubbing, cyanosis, + Moderate edema , anasarca LUE with less non pitting edema LYMPHATICS: No palpable cervical or supraclavicular adenopathy. 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 LLL PNA vs atelectatic changes CHF with fluid oveload Probably asymptomatic asymptomatic bacteriuria Acute VDRF 2/2 severe CHF ? PNA Persistent L lung dense consolidation, sputum clx with nl vera - could be atelectatic changes 2/2 failure and post -op ARF on CKD, worsening creatinine Critically ill New ileus, in the settings of recent levaquine use VRE in the urine, UTI ? funguria Diarrhea, C.diff neg cont zyvox , can be switched to po if tolerates PO cont cefepime Darleen Fong Dr, RN, MD Feb 24, 2017 14:17
--- NOTE | 2017-02-24 14:48 | HHI.CCPN ---
Subjective Remarks/Hospital Course Hospital Course: This is a 71-year-old Afro-Malag[place] female. Date of admission 02/04/2017. Past medical history includes diastolic congestive heart failure, COPD, chronic atrial fibrillation, diabetes, hypertension and history of MSSA infection on cefazolin. Patient presents to [facility] initially on 02/04 with left breast swelling. In November/2016, patient was diagnosed with endocarditis and AICD infection. At that time, Pacemaker removed . Since that time she's had increasing swelling in her left breast and currently has an abscess of the location 11.8 cm in size. She also complained of Shortness of breath. This is associated with a self-reported 50 pound weight gain with bilateral lower extremity edema and significant stomach swelling. She also reports shortness of breath. She was treated with cefazolin at home include 01/29/2017. After cessation of treatment, she noted The patient reports a significant increase in her left breast swelling over the past 2-3 days. She states the area is tender to palpation and painful. She does not have a leukocytosis. Breast ultrasound showed a complex cystic lesion measuring up to 11.8 cm in the left breast that could represent a fluid collection or old hematoma. Today in 02/10, patient ID of her left breast by Dr. Joy. 300 crystalloid. EBL 50. Urine output 60. Patient received 40 mg torsemide IV post procedure. Her oxygenation requirements increasing currently on BiPAP. She is currently unresponsive when seen in [facility]. She'll be intubated at the present time Subjective: 02/11: intubated overnight. now on vasopressors with fever. likely mixed cardiogenic/septic shock from a combination of volume overload and breast abscess. Also has significant bilateral pleural effusion, left > right by CXR and bedside ultrasound. significantly up in weight. respiratory failure likely from volume overload, although worsening acute kidney injury and shock complicates picture. 02/12: despite aggressive diuresis increasing to bumex drip, still net + and poor diuresis. may require dialysis if no improvement. remains borderline hypoglycemic. renal function continues to worsen. no BM x 2 days. peak pressures on vent elevated. CT chest yesterday without significant effusions but completely collapsed LLL, likely a large component of atelectasis from severe cardiomegaly, but cannot rule out pna. no meaningful improvements from yesterday. 11/16: much improved diuresis yesterday and now net negative 1.7L/24h. Cr still uptrending, but only slightly. pulmonary compliance also has improved with overnight APRV. discussed care with Dr. Garcia and we both agree that inhaled epoprostenol may be of benefit in assisting with RV function to mitigate severe TR and assist with diuresis and hemodynamics. ammonia up slightly, although now having regular bowel movements. 02/14: good diuresis. Cr plateaued. LFTs and T bili slightly worse. ammonia stable without significant improvements. also had 1 episode of emesis today: tube feeds on hold and NGT to LIWS. 02/15: Heart is shaped like a bowling ball. Gas exchange much improved, continued diuresis. Residual NG aspirate > 500 - will reconnect to LIS, start reglan. Decrease T-high to 4.5, add pressure support 5. Lighten fentanyl. Diarrhea remains problematic. 02/16: blood pressure improved. bnp still uptrending. good diuresis. art line removed for non-functioning. 02/17: still diuresing with > 2L/24h negative balance. Cr still downtrending. bp still stable. tolerated initiation of sildenafil. persists with high gastric residuals. KUB with adynamic ileus. starting to weakly follow commands this morning, but still very somnolent. 02/18: continues to diurese on bumex drip with albumin and diamox. Cr continues to downtrend. bp stable. tolerating sildenafil. ileus persists. no tolerance of gastric tube feeds at all. no following commands this morning. If we look overall clinically a week ago until today, no meaningful improvements: continues to get low tidal volumes, atelectasis, and fails any attempt at SBT quickly and continues to require APRV to maintain adequate lung expansion. cardiac function no better despite 12L diuresis. kidneys are some improved but not significant, and mental status is very poor and metabolic encephalopathy is severe. With this many organs dysfunctional, this is a very poor prognosis. I had a long talk with the family where I expressed my concerns. The and medical decision maker clearly states in front of the whole family and palliative care that he would not want CPR or shocking or anything like that, as this would only prolong suffering, but he is having trouble with the decision to withdraw care, and would like to think about it and give a final decision about palliation vs. trach/peg and aggressive care tomorrow. 02/19: UO adequate but reduced over past few hours, labs today are pending. Changed mode to PC/AC. Attempted CPAP, failed due to low tidal volumes. Following commands, but very weak. 02/20: Worsening clinically with worsening abdominal distention/ileus creatinine 3.1 today remains oliguric. New fever Tmax 101, KUB shows right lower lung infiltrate which is new. Pancultured started on cefepime. Nothing by mouth to place NG tube to intermittent wall suction. GI consult placed. GI has ordered Relistor 02/21: Patient still requiring high inspiratory pressure support on PCV. Unable to tolerate CPAP. Abdominal distention slightly improved but still tense , KUB shows slight improvement in ileus. Has NGT to IWS and rectal tube. Creatinine is 3.4 today but 750 mL urine output in 24 hours. No emergency indication for hemodialysis at this time. Urine culture growing Streptococcus on Diflucan, ID reconsultation for new sepsis 02/22: No change clinically. Family wants to withdrawal probably Friday. Urine culture with VRE-Zyvox added. Potassium 2.8 getting replaced 02/23: Clinically remains the same except creatinine is slightly improved to 2.8. Urine output 850 mL in 24 hours. Abdomen feels less tense. Remains sedated with propofol for vent synchrony 02/24: Patient was slightly better yesterday overall but today again to get him for the worse and anuric creatinine up to 3.5 again. Weekly follows commands but not tolerating CPAP Objective Vital Signs Date Time Temp Pulse Resp B/P (MAP) Pulse Ox O2 Delivery O2 Flow Rate FiO2 02/24/17 12:31 100 30 02/24/17 06:00 78 02/24/17 04:00 98.7 16 138/62 (87) 02/23/17 19:00 Mechanical Ventilator Intake and Output 02/24/17 02/24/17 02/25/17 08:00 16:00 00:00 Intake Total 200 ml Output Total 1200 ml Balance -1000 ml Result Diagram: 02/23/17 0520 02/24/17 0440 Imaging Last Impressions Head CT 02/11/17 0000 Signed Impressions: Service Date/Time: Saturday, February 11, 2017 04:32 - CONCLUSION: Normal examination. Tyrone Simmons MD Renal Ultrasound 02/10/17 Signed Impressions: Service Date/Time: Friday, February 10, 2017 23:06 - CONCLUSION: Normal examination. No evidence of obstruction or hydronephrosis.. Tyrone Simmons MD Chest X-Ray 02/10/17 Signed Impressions: Service Date/Time: Friday, February 10, 2017 21:41 - CONCLUSION: 1. ET tube 1 cm from the anai. This can be pulled back 2 cm to be in a better position. 2. Cardiomegaly. Multiple electronic devices are seen over the chest. 3. Diffuse pulmonary consolidations likely representing edema. There is further atelectasis or consolidation the bases and probably bilateral effusions. Gregory Perry MD Breast Ultrasound 02/03/17 Signed Impressions: Service Date/Time: Friday, February 03, 2017 18:49 - CONCLUSION: Complex cystic lesion measuring up to 11.8 cm centered at the 12:00 position left breast. Given the clinical history of recent procedure in this area this could represent a noninfected or infected fluid collection. Given the complex internal architecture, percutaneous drainage will likely not be successful. Once the patient's condition permits, consider outpatient diagnostic mammogram and ultrasound followup. Gregory Bob MD ADDENDUM: Another consideration given the prior CT appearance and current imaging findings is an old hematoma. Gregory Bob MD Abdomen/Pelvis CT 02/03/17 Signed Impressions: Service Date/Time: Friday, February 03, 2017 17:35 - CONCLUSION: 1. CT findings characteristic of right heart insufficiency with diffuse but stable anasarca in the visible soft tissues and leaves of the mesentery as well as a small amount of ascites. Intrahepatic IVC is markedly dilated. 2. Previously identified bilateral pleural effusions are significantly improved with only a small amount of fluid on the left. There is some persistent atelectasis in the left base. 3. Heart size remains prominent. 4. Otherwise stable. Mt Alvarez MD Objective Remarks GENERAL: 71-year-old a female, lying in bed, intubated, off all sedation SKIN: Warm and dry. No rash HEAD: Atraumatic. Normocephalic. EYES: Pupils equal and round bilaterally reactive. No conjunctival icterus. No injection or drainage. ENT: No nasal bleeding or discharge. Mucous membranes dry. NECK: Trachea midline. orotracheally intubated CARDIOVASCULAR: Regular rate and rhythm RESPIRATORY: PC/AC with equal air entry bilateral, not tolerating CPAP today THORAX - left breast less indurated than before. LifeVest still in place. GASTROINTESTINAL: Abdomen improved distension. NGT output remains high. rectal tube in place MUSCULOSKELETAL: Extremities 1+ lower extremity edema. No obvious deformities. NEUROLOGICAL: Weakly follows commands on RUE. Withdraws all extremities to pain. no spontaneous eye opening A/P Assessment and Plan Assessment: 71yF with h/o ICM, prior EF reported at 15%, s/p placement of AICD, recovery of LVEF to 60%, AICD infection s/p lead extraction, now with breast abscess, septic shock, volume overload, acute systolic CHF exacerbation, acute hypoxic respiratory failure. still very critically ill and unable to measurably improve her organs. Family to decide tomorrow trach/peg vs. hospice by tomorrow. DNR now Continuing diuresis with Bumex and Diamox. continue NPO. Off pathway with little improvements. Now with VRE and Florina UTI, renal failure and ileus. Prognosis very poor Neuro/Psych: Metabolic Encephalopathy Hyperammonemia Hypoactive delirium Off all sedation today Due to ileus fentanyl was discontinued Goal of RASS -0. CT brain 02/10- negative for acute disease. Amantadine for improved wakefulness. Modafinil for alertness. CV: Acute CHF exacerbation: mixed type, including systolic, diastolic, and valvulopathy from severe tricuspid regurgitation. History arrhythmia/ chronic atrial fibrillation - LifeVest since 11/2016 Hypertension Coronary disease status post stent 3 Moderate to severe TR Acute intravascular volume overload Cor Pulmonale 2-D echocardiogram revealed EF of 60%. Severe TR. PAP 33 mmHg, bedside critical care echo 02/11: moderately depressed LV function. clinically significant TR. Rpt limited echo 02/21 sev TR, PASP 59, EF 50-55% Holding metoprolol, enalapril, amlodipine for hypotension Previously on bumetanide 2 mg daily with KCl 10 mEq twice a day. continue Bumex drip to 2mg/hr. Diamox 500mg iv q8h. UO 850 in 24 hours. Creat improved to 2.8, but today worsened to 3.4 continue concentrated albumin. Continue amiodarone 200 mg by mouth daily Dr. Feliciano - cardiology and Dr. Garcia, CT surgery following holding spironolactone given renal function. hold Sacibutril/Valsartan continue sildenafil 20mg po q8hr for Pulm hypertension carvedilol 3.125 mg po q12h. Resp: Acute hypoxic respiratory failure Compressive atelectasis/consolidation LLL New RLL HCAP pneumonia Acute pulmonary edema Severe acute intravascular volume overload COPD - 3 L oxygen dependent PRVC/AC. Failing CPAP due to low TV Ventilator bundle. Albuterol/ipratropium aerosols every 4 hours albuterol aerosols every 2 hours. Dyspnea Wean fio2 for goal spo2 > 90% CT chest 02/11: moderate right pleural effusion. densely consolidated LLL. severe cardiomegaly. KUB 02/20 New RLL infiltrate, ileus GI: Severe Ileus Abdominal Distension Hyperammonemia Acute protein calorie malnutrition - moderate Acute intravascular volume overload Obesity Constipation NGT to LIWS. Rectal tube, GI following. Recd Relistor 02/20. Clinically ileus improved Pantoprazole for GI prophylaxis Docusate sodium/senna for bowel regimen lactulose qid for elevated ammonia which is likely secondary to early congestive hepatopathy diuresis as above. continue aggressive bowel regimen: - senna/colace-hold while NPO - MiraLAX BID- hold while NPO - lactulose QID- hold while NPO - Dulcolax supp daily - reglan 5mg iv q8h If family not withdrawing today, start renal TPN : Acute Kidney failure worsening Forced diuresis as above, now anuric. kidney injury likely multifactorial and combination of shock and venous congestion from volume overload. lungs and heart function require urgent forced diuresis, despite kidney injury. Dr. Love following, HD if family wants aggressive care Endo: Diabetes mellitus Hypoglycemia Hold insulin detemir 27 units at night. Currently on sliding scale insulin with NovoLog low regimen every 6 hours d10w @ 42cc/hr. change to D5NS due to hyponatremia maintain dextrose source while NPO. Renal: Acute kidney injury in the setting of chronic kidney disease stage III worsening Followed by nephrology/by Dr. Love Avoid nephrotoxic drugs Heme: Normocytic anemia Chronic warfarin use Currently holding warfarin 4 mg daily. CBC and INR daily Does not meet transfusion threshold at this time Currently on iron sulfate 325 mg by mouth twice a day-holding due to ileus ID: Fever/RLL infiltrate/HCAP UTI with Florina and VRE Escherichia coli UTI History of MSSA abscess to left breast Pertinent cultures 02/20 urine Florina and VRE 02/08 - urine - Enterobacter 02/04 - blood cultures 2- no growth 02/03 - urine - Escherichia coli Followed by Dr. Tamayo/ID, reconsult 04/23 Started cefepime and single dose vanc 02/20 Zyvox added for VRE 02/22 FEN: Replace electrolytes as clinically indicated MSK: Postop day #15 I&D left breast hematoma by Dr. Garcia PT evaluate and treat Access - Utilize peripheral IV. Continue to use right upper extremity single lumen PICC line. Central line if indicated Prophylaxis - GI - pantoprazole - DVT - SCD/SQH 5000 q12h. Overall impression: overall likely poor prognosis given acute exacerbation of multiple chronic medical problems.Family wants to withdraw life support Friday Level 2 Ashley Jenkins MD Feb 24, 2017 14:48
--- NOTE | 2017-02-24 16:39 | HHI.NPPN ---
Subjective History of Present Illness 71 year old female with ARF/CHF.Hematoma Left breast Additional Remarks intubated Objective Data Data Vital Signs Date Time Temp Pulse Resp B/P (MAP) Pulse Ox O2 Delivery O2 Flow Rate FiO2 02/24/17 12:31 100 30 02/24/17 08:18 100 30 02/24/17 06:00 78 02/24/17 06:00 30 02/24/17 04:00 30 02/24/17 04:00 98.7 72 16 138/62 (87) 100 02/24/17 04:00 72 02/24/17 03:56 100 30 02/24/17 02:00 30 02/24/17 02:00 68 02/24/17 01:40 100 40 02/24/17 00:00 30 02/24/17 00:00 68 02/24/17 00:00 98.0 68 16 153/65 (94) 100 02/23/17 22:56 100 30 02/23/17 22:00 68 02/23/17 22:00 40 02/23/17 20:00 98.1 68 22 119/57 (77) 100 02/23/17 20:00 40 02/23/17 20:00 68 02/23/17 19:44 100 30 02/23/17 19:00 100 Mechanical Ventilator 40 02/23/17 17:25 100 40 -: 02/23/17 0520 02/24/17 0440 Physical Exam General Appearance: Well Developed Neck Neck Exam: Neck Supple Pulmonary Resp Exam: Decreased Bases Cardiology CV Exam: Regular Gastrointestinal/Abdomen GI Exam: Distended, Bowel Sounds Hypoactive Extremeties Extremities Exam: Pitting Edema Assessment/Plan Problem List: (1) HARVEY (acute kidney injury) ICD Codes: N17.9 - Acute kidney failure, unspecified Status: Acute Plan: Patient has congestive heart failure Lasix drip is off. Urine output is lower K normal VRE on Zyvox . Creatinine 3.43 family informed of worsening renal failure . Lasix drip was stopped She has abdominal distention and ileus, rectal tube improved, D10 42 cc/hr Doing poorly family wishes to withdraw from life support Discussed with Dr. Gregory Velarde off on the (2) Hematoma (nontraumatic) of breast ICD Codes: N64.89 - Other specified disorders of breast Plan: Surgically operated on (3) Bilateral lower extremity edema ICD Codes: R60.0 - Bilateral lower extremity edema Status: Acute Plan: Due to congestive heart failure (4) CHF (congestive heart failure) ICD Codes: I50.9 - CHF (congestive heart failure) Status: Chronic Plan: Better off diuretic (5) UTI (urinary tract infection) ICD Codes: N39.0 - UTI (urinary tract infection) Status: Acute Plan: VRE on Zyvox and cefepime Problem Qualifiers (1) CHF (congestive heart failure): Qualified Codes: I50.33 - Acute on chronic diastolic (congestive) heart failure Laurel Love MD Feb 24, 2017 16:39
[2017-02-24] MEDS: DEXTROSE 10% INJ 1,000 ML IV SCH (21:43)
[2017-02-25] VITALS (9 sets, daily range): BP systolic 87–137; BP diastolic 57–72; PULSE 60–73; RESP 18–22; TEMP 97.8–98.9; O2SAT 98–100
[2017-02-25] MEDS: RESP: ALBUTEROL 2.5 MG/IPRATROPIUM 0.5 MG NEB (SCH) INH ×3 (00:11→08:17)
[2017-02-25] MEDS: ALBUMIN 25% INJ 100 ML IV SCH (03:41)
[2017-02-25] MEDS: CEFEPIME INJ 1,000 MG in SODIUM CHLORIDE 0.9% INJ 100 ML IV SCH (03:41)
[2017-02-25] MEDS: CHLORHEXIDINE GLUCONATE 2 % 1 PACK (2 CLOTHS) TOP SCH (04:00)
[2017-02-25] MEDS: LINEZOLID 600 MG PREMIX 300 ML IV SCH (04:52)
[2017-02-25] MEDS: METOCLOPRAMIDE HCL 10 MG/2 ML VIAL IV PUSH SCH (04:55)
[2017-02-25] MEDS: INSULIN ASPART SUPPLEMENTAL SCALE SQ SCH ×2 (06:00)
[2017-02-25] MEDS: DEXTROSE 10% INJ 1,000 ML IV SCH (07:27)
[2017-02-25] MEDS: FERROUS SULFATE 325 MG (65 MG ELEMENTAL IRON) TAB PO SCH (09:00)
[2017-02-25] MEDS: BISACODYL 10 MG SUPP RECTAL SCH (09:00)
[2017-02-25] MEDS: POLYETHYLENE GLYCOL 17 GM PKG PO SCH (09:00)
[2017-02-25] MEDS: LACTULOSE SYRUP 20 GM/30 ML CUP PO SCH (09:00)
[2017-02-25] MEDS: DOCUSATE SODIUM 50 MG/SENNA 8.6 MG TAB PO SCH (09:00)
[2017-02-25] MEDS: MAGNESIUM HYDROXIDE SUSP 30 ML CUP PO SCH (09:00)
[2017-02-25] MEDS: SENNOSIDES 8.6 MG TAB PO SCH ×2 (09:00→21:00)
[2017-02-25] MEDS: CHLORHEXIDINE 0.12% (ORAL KIT) 15 ML CUP MT SCH (09:28)
[2017-02-25] MEDS: CARVEDILOL 3.125 MG TAB PO SCH (09:29)
[2017-02-25] MEDS: AMIODARONE 200 MG TAB PO SCH (09:29)
[2017-02-25] MEDS: ARTIFICIAL TEARS OPTH SOLN 15 ML BTL EACH EYE SCH (09:29)
[2017-02-25] MEDS: PANTOPRAZOLE SODIUM 40 MG VIAL IV PUSH SCH (09:29)
[2017-02-25] MEDS: MODAFINIL 200 MG TAB PO SCH (09:29)
[2017-02-25] MEDS: SODIUM CHLORIDE 0.9% FLUSH 10 ML FLUSH IV FLUSH SCH (09:29)
[2017-02-25] MEDS: HEPARIN SODIUM - SQ 10,000 UNITS/ML VIAL SQ SCH (09:30)
[2017-02-25] MEDS: AMANTADINE HCL SOLN 100 MG/10 ML UDC PO SCH (09:30)
--- NOTE | 2017-02-25 10:06 | HHI.HCPN ---
Reason for visit a. To assist with evaluation and management of symptoms including:dyspnea, debility b. To assist medical decision maker(s) with: better understanding of current medical conditions; weighing benefits/burdens of medical treatment options; making medical treatment decisions. Subjective/Interval History Patient seen today, family at bedside, plan to withdraw artificial life support this morning. Patient remains intubated and mechanically ventilated. No improvement in urine output over night, no available laboratory data to review as the plan to withdraw artificial life support was established yesterday. Family/friend interactions Meeting in conference room with patient's daughters Afsaneh and Desi, updated on clinical status, exhibit signed and witnessed. Advance Directives Living Will: Never completed Health Care Surrogate: Never completed Durable Power of Home Appliance Washing Machine Mechanic: Never completed Objective Vital Signs Date Time Temp Pulse Resp B/P (MAP) Pulse Ox O2 Delivery O2 Flow Rate FiO2 02/25/17 08:17 100 30 02/25/17 07:00 100 Mechanical Ventilator 40 02/25/17 06:00 40 02/25/17 06:00 64 02/25/17 04:24 100 30 02/25/17 04:00 40 02/25/17 04:00 66 02/25/17 04:00 98.7 64 22 87/72 (77) 99 02/25/17 02:00 66 02/25/17 02:00 40 02/25/17 00:07 100 30 02/25/17 00:00 40 02/25/17 00:00 60 02/25/17 00:00 98.9 62 20 137/58 (84) 99 02/24/17 20:43 100 30 02/24/17 20:43 100 Ventilator 30 02/24/17 20:00 40 02/24/17 20:00 99.0 60 21 127/60 (82) 100 02/24/17 20:00 60 02/24/17 19:00 100 Mechanical Ventilator 40 02/24/17 18:00 40 02/24/17 18:00 60 02/24/17 16:51 100 30 02/24/17 16:00 40 02/24/17 16:00 62 02/24/17 16:00 98.9 62 27 105/48 (67) 100 02/24/17 14:15 30 02/24/17 14:15 100 30 02/24/17 14:00 68 02/24/17 14:00 40 02/24/17 12:31 100 30 02/24/17 12:00 98.2 69 16 116/52 (73) 100 02/24/17 12:00 69 02/24/17 12:00 40 Intake & Output 02/25/17 02/25/17 07:00 19:00 Intake Total 1000 ml Output Total 1100 ml Balance -100 ml IV Total 1000 ml Output Urine Total 50 ml Stool Total 800 ml Gastric Drainage Total 250 ml Physical Exam CONSTITUTIONAL/GENERAL: This is a critically ill elderly appearing female patient, intubated, and mechanically ventilated. TUBES/LINES/DRAINS: PICC line RUE, PIV x1, ellis catheter SKIN: No jaundice, rashes, or lesions. Ecchymoses on upper extremities. Left breast incision covered with bandage. Skin temperature appropriate. Not diaphoretic. CARDIOVASCULAR: Regular rate and rhythm without murmurs, gallops, or rubs. Peripheral pulses symmetric. RESPIRATORY/CHEST: Symmetric, mechanically ventilated. Course crackles throughout. Breath sounds equal bilaterally. GASTROINTESTINAL: Abdomen firm, distended. Bowel sounds hypoactive. GENITOURINARY: Ellis catheter. Anuric. MUSCULOSKELETAL: Extremities without clubbing, cyanosis. NEUROLOGICAL: Drowsy. Opens eyes spontaneously. Follows simple one step commands. PSYCHIATRIC: Unable to assess secondary to clinical condition. . Diagnostic Tests Laboratory Laboratory Tests Test 02/22/17 13:25 02/22/17 22:57 02/23/17 05:20 02/23/17 10:40 Potassium Level 2.8 MEQ/L (3.5-5.1) 3.2 MEQ/L (3.5-5.1) 3.7 MEQ/L (3.5-5.1) 3.9 MEQ/L (3.5-5.1) White Blood Count 5.5 TH/MM3 (4.0-11.0) Red Blood Count 2.99 MIL/MM3 (4.00-5.30) Hemoglobin 8.5 GM/DL (11.6-15.3) Hematocrit 25.7 % (35.0-46.0) Mean Corpuscular Volume 86.1 FL (80.0-100.0) Mean Corpuscular Hemoglobin 28.4 PG (27.0-34.0) Mean Corpuscular Hemoglobin Concent 33.0 % (32.0-36.0) Red Cell Distribution Width 20.8 % (11.6-17.2) Platelet Count 257 TH/MM3 (150-450) Mean Platelet Volume 7.6 FL (7.0-11.0) Neutrophils (%) (Auto) 73.3 % (16.0-70.0) Lymphocytes (%) (Auto) 10.6 % (9.0-44.0) Monocytes (%) (Auto) 12.4 % (0.0-8.0) Eosinophils (%) (Auto) 2.5 % (0.0-4.0) Basophils (%) (Auto) 1.2 % (0.0-2.0) Neutrophils # (Auto) 4.0 TH/MM3 (1.8-7.7) Lymphocytes # (Auto) 0.6 TH/MM3 (1.0-4.8) Monocytes # (Auto) 0.7 TH/MM3 (0-0.9) Eosinophils # (Auto) 0.1 TH/MM3 (0-0.4) Basophils # (Auto) 0.1 TH/MM3 (0-0.2) CBC Comment DIFF FINAL Differential Comment Blood Urea Nitrogen 36 MG/DL (7-18) Creatinine 2.78 MG/DL (0.50-1.00) Random Glucose 94 MG/DL (74-106) Total Protein 7.2 GM/DL (6.4-8.2) Albumin 4.4 GM/DL (3.4-5.0) Calcium Level 8.6 MG/DL (8.5-10.1) Alkaline Phosphatase 47 U/L (45-117) Aspartate Amino Transf (AST/SGOT) 12 U/L (15-37) Alanine Aminotransferase (ALT/SGPT) 7 U/L (10-53) Total Bilirubin 1.3 MG/DL (0.2-1.0) Sodium Level 136 MEQ/L (136-145) Chloride Level 102 MEQ/L (98-107) Carbon Dioxide Level 23.9 MEQ/L (21.0-32.0) Anion Gap 10 MEQ/L (5-15) Estimat Glomerular Filtration Rate 20 ML/MIN (>89) Test 02/24/17 04:40 Blood Urea Nitrogen 36 MG/DL (7-18) Creatinine 3.43 MG/DL (0.50-1.00) Random Glucose 95 MG/DL (74-106) Total Protein 8.1 GM/DL (6.4-8.2) Albumin 5.0 GM/DL (3.4-5.0) Calcium Level 9.1 MG/DL (8.5-10.1) Alkaline Phosphatase 49 U/L (45-117) Aspartate Amino Transf (AST/SGOT) 10 U/L (15-37) Alanine Aminotransferase (ALT/SGPT) 8 U/L (10-53) Total Bilirubin 1.3 MG/DL (0.2-1.0) Sodium Level 133 MEQ/L (136-145) Potassium Level 3.5 MEQ/L (3.5-5.1) Chloride Level 99 MEQ/L (98-107) Carbon Dioxide Level 23.3 MEQ/L (21.0-32.0) Anion Gap 11 MEQ/L (5-15) Estimat Glomerular Filtration Rate 16 ML/MIN (>89) Result Diagram: 02/23/17 0520 02/24/17 0440 Procedures 02/10/17: I&D left breast 02/10/17:Intubated Assessment and Plan Disease Oriented Problem List: (1) CHF (congestive heart failure) (2) Respiratory failure with hypercapnia (3) Anasarca (4) AICD generator infection Symptom Scale: (1) Debility (2) Dyspnea Pertinent Non-Medical Issues Psychosocial: Patient is originally from [place], she is , she had five children, only two daughters still living. Spiritual: Yazidism. Legal: None known. Ethical issues impacting care: None known. Important Contacts Damaris Dailey () [phone] Desi Burrell (daughter) [phone] . Prognosis Patient has a long standing history of cardiomyopathy, CHF, COPD, now with respiratory failure, ARF, liver failure, and adynamic ileus. Patient is critically ill, intubated on mechanical ventilation in multiorgan failure. Due to patient's advanced age, multiple comorbidities, and debilitated status she is at an ongoing risk for complications/setbacks. Poor prognosis. Code Status: No Code Plan Plan * Legal decision maker: Patient is currently not capacitated to make informed medical decisions independently. It is unclear if she will regain capacity. Patient does not have any previous written advanced directives, per [place] statutes in the absence of written advanced directives health care decision making would fall to her next of kin which is her . Patient's Damaris Dailey has opted out of medical decision making, per [place] statutes decision making would fall to the patient's two adult daughters, Afsaneh and Desi who have both confirmed they will serve as their mother's health care proxies. * Goals: Comfort focused. Exhibits signed, witnessed, and placed on the chart. Orders entered for withdrawal of artificial life support. Hospice following. * CODE STATUS: DNR. * Palliative care will continue to follow during hospital course as condition evolves, to assist patient/decision-maker with understanding of medical conditions, weighing benefits/burdens of treatment options, for clarification of goals of treatment. Additionally will assist with any symptoms of palliative concern Attestation To help prompt me to consider important information that might be impacting today's encounter and assessment, information from prior notes written by myself or my colleagues may have been "brought forward" into today's note. My signature on this note, however, is an attestation that I personally performed the exam, history, and/or decision-making noted today, and, unless otherwise indicated, the interactions with patient, family, and staff as well as the review of records all occurred today. I also attest that the listed assessment and stated plan reflect my best clinical judgment today based on the combination of historical information, prior notes, and today's exam/ interactions. When time spent is documented, it refers only to time spent today by the signer, or if indicated, combined time spent today by collaborating physician/nurse practitioner. Sunshine Cagle Feb 25, 2017 10:06
[2017-02-25] MEDS ORDERED: HYOSCYAMINE 0.5 MG/ML AMP IV PUSH ONE (10:15)
[2017-02-25] MEDS ORDERED: LORazepam 2 MG/ML VIAL IV PUSH ONE ×2 (10:30→11:00)
[2017-02-25] MEDS ORDERED: HYDROmorphone HCL PF 2 MG/ML VIAL IV PUSH ONE ×2 (10:30→11:00)
[2017-02-25] MEDS ORDERED: BISACODYL 10 MG SUPP RECTAL PRN (10:45)
[2017-02-25] MEDS ORDERED: ACETAMINOPHEN 650 MG SUPP RECTAL PRN (10:45)
[2017-02-25] MEDS ORDERED: LORazepam 2 MG/ML VIAL IV PUSH PRN ×2 (10:45)
[2017-02-25] MEDS ORDERED: FUROSEMIDE 20 MG/2 ML VIAL IV PUSH PRN (10:45)
[2017-02-25] MEDS ORDERED: HYOSCYAMINE 0.5 MG/ML AMP IV PUSH PRN (10:45)
[2017-02-25] MEDS ORDERED: HYDROmorphone HCL PF 2 MG/ML VIAL IV PUSH PRN ×2 (10:45)
--- NOTE | 2017-02-25 10:50 | HHI.CCPN ---
Subjective Remarks/Hospital Course Hospital Course: This is a 71-year-old Afro-[place] female. Date of admission 02/04/2017. Past medical history includes diastolic congestive heart failure, COPD, chronic atrial fibrillation, diabetes, hypertension and history of MSSA infection on cefazolin. Patient presents to [facility] initially on 02/04 with left breast swelling. In November/2016, patient was diagnosed with endocarditis and AICD infection. At that time, Pacemaker removed . Since that time she's had increasing swelling in her left breast and currently has an abscess of the location 11.8 cm in size. She also complained of Shortness of breath. This is associated with a self-reported 50 pound weight gain with bilateral lower extremity edema and significant stomach swelling. She also reports shortness of breath. She was treated with cefazolin at home include 01/29/2017. After cessation of treatment, she noted The patient reports a significant increase in her left breast swelling over the past 2-3 days. She states the area is tender to palpation and painful. She does not have a leukocytosis. Breast ultrasound showed a complex cystic lesion measuring up to 11.8 cm in the left breast that could represent a fluid collection or old hematoma. Today in 02/10, patient ID of her left breast by Dr. Joy. 300 crystalloid. EBL 50. Urine output 60. Patient received 40 mg torsemide IV post procedure. Her oxygenation requirements increasing currently on BiPAP. She is currently unresponsive when seen in [facility]. She'll be intubated at the present time Subjective: 02/11: intubated overnight. now on vasopressors with fever. likely mixed cardiogenic/septic shock from a combination of volume overload and breast abscess. Also has significant bilateral pleural effusion, left > right by CXR and bedside ultrasound. significantly up in weight. respiratory failure likely from volume overload, although worsening acute kidney injury and shock complicates picture. 02/12: despite aggressive diuresis increasing to bumex drip, still net + and poor diuresis. may require dialysis if no improvement. remains borderline hypoglycemic. renal function continues to worsen. no BM x 2 days. peak pressures on vent elevated. CT chest yesterday without significant effusions but completely collapsed LLL, likely a large component of atelectasis from severe cardiomegaly, but cannot rule out pna. no meaningful improvements from yesterday. 11/16: much improved diuresis yesterday and now net negative 1.7L/24h. Cr still uptrending, but only slightly. pulmonary compliance also has improved with overnight APRV. discussed care with Dr. Garcia and we both agree that inhaled epoprostenol may be of benefit in assisting with RV function to mitigate severe TR and assist with diuresis and hemodynamics. ammonia up slightly, although now having regular bowel movements. 02/14: good diuresis. Cr plateaued. LFTs and T bili slightly worse. ammonia stable without significant improvements. also had 1 episode of emesis today: tube feeds on hold and NGT to LIWS. 02/15: Heart is shaped like a bowling ball. Gas exchange much improved, continued diuresis. Residual NG aspirate > 500 - will reconnect to LIS, start reglan. Decrease T-high to 4.5, add pressure support 5. Lighten fentanyl. Diarrhea remains problematic. 02/16: blood pressure improved. bnp still uptrending. good diuresis. art line removed for non-functioning. 02/17: still diuresing with > 2L/24h negative balance. Cr still downtrending. bp still stable. tolerated initiation of sildenafil. persists with high gastric residuals. KUB with adynamic ileus. starting to weakly follow commands this morning, but still very somnolent. 02/18: continues to diurese on bumex drip with albumin and diamox. Cr continues to downtrend. bp stable. tolerating sildenafil. ileus persists. no tolerance of gastric tube feeds at all. no following commands this morning. If we look overall clinically a week ago until today, no meaningful improvements: continues to get low tidal volumes, atelectasis, and fails any attempt at SBT quickly and continues to require APRV to maintain adequate lung expansion. cardiac function no better despite 12L diuresis. kidneys are some improved but not significant, and mental status is very poor and metabolic encephalopathy is severe. With this many organs dysfunctional, this is a very poor prognosis. I had a long talk with the family where I expressed my concerns. The and medical decision maker clearly states in front of the whole family and palliative care that he would not want CPR or shocking or anything like that, as this would only prolong suffering, but he is having trouble with the decision to withdraw care, and would like to think about it and give a final decision about palliation vs. trach/peg and aggressive care tomorrow. 02/19: UO adequate but reduced over past few hours, labs today are pending. Changed mode to PC/AC. Attempted CPAP, failed due to low tidal volumes. Following commands, but very weak. 02/20: Worsening clinically with worsening abdominal distention/ileus creatinine 3.1 today remains oliguric. New fever Tmax 101, KUB shows right lower lung infiltrate which is new. Pancultured started on cefepime. Nothing by mouth to place NG tube to intermittent wall suction. GI consult placed. GI has ordered Relistor 02/21: Patient still requiring high inspiratory pressure support on PCV. Unable to tolerate CPAP. Abdominal distention slightly improved but still tense , KUB shows slight improvement in ileus. Has NGT to IWS and rectal tube. Creatinine is 3.4 today but 750 mL urine output in 24 hours. No emergency indication for hemodialysis at this time. Urine culture growing Streptococcus on Diflucan, ID reconsultation for new sepsis 02/22: No change clinically. Family wants to withdrawal probably Friday. Urine culture with VRE-Zyvox added. Potassium 2.8 getting replaced 02/23: Clinically remains the same except creatinine is slightly improved to 2.8. Urine output 850 mL in 24 hours. Abdomen feels less tense. Remains sedated with propofol for vent synchrony 02/24: Patient was slightly better yesterday overall but today again to get him for the worse and anuric creatinine up to 3.5 again. Weekly follows commands but not tolerating CPAP 02/25: Patient remains anuric only 50 mL output in last 24 hours. After meeting with palliative care 02/24, family had decided on withdrawal of life support and comfort measures today. Patient will be going to hospice after extubation. Even though she can tolerate CPAP, TV are low Objective Vital Signs Date Time Temp Pulse Resp B/P (MAP) Pulse Ox O2 Delivery O2 Flow Rate FiO2 02/25/17 10:00 40 02/25/17 08: 100 02/25/17 07:00 Mechanical Ventilator 02/25/17 06:00 64 02/25/17 04:00 98.7 22 87/72 (77) Intake and Output 02/25/17 02/25/17 02/26/17 08:00 16:00 00:00 Intake Total 500 ml Output Total 1100 ml Balance -600 ml Result Diagram: 02/23/17 0520 02/24/17 0440 Imaging Last Impressions Head CT 02/11/17 0000 Signed Impressions: Service Date/Time: Saturday, February 11, 2017 04:32 - CONCLUSION: Normal examination. Tyrone Simmons MD Renal Ultrasound 02/10/17 0000 Signed Impressions: Service Date/Time: Friday, February 10, 2017 23:06 - CONCLUSION: Normal examination. No evidence of obstruction or hydronephrosis.. Tyrone Simmons MD Chest X-Ray 02/10/17 0000 Signed Impressions: Service Date/Time: Friday, February 10, 2017 21:41 - CONCLUSION: 1. ET tube 1 cm from the anai. This can be pulled back 2 cm to be in a better position. 2. Cardiomegaly. Multiple electronic devices are seen over the chest. 3. Diffuse pulmonary consolidations likely representing edema. There is further atelectasis or consolidation the bases and probably bilateral effusions. Gregory Perry MD Breast Ultrasound 02/03/17 0000 Signed Impressions: Service Date/Time: Friday, February 03, 2017 18:49 - CONCLUSION: Complex cystic lesion measuring up to 11.8 cm centered at the 12:00 position left breast. Given the clinical history of recent procedure in this area this could represent a noninfected or infected fluid collection. Given the complex internal architecture, percutaneous drainage will likely not be successful. Once the patient's condition permits, consider outpatient diagnostic mammogram and ultrasound followup. Gregory Bob MD ADDENDUM: Another consideration given the prior CT appearance and current imaging findings is an old hematoma. Gregory Bob MD Abdomen/Pelvis CT 02/03/17 0000 Signed Impressions: Service Date/Time: Friday, February 03, 2017 17:35 - CONCLUSION: 1. CT findings characteristic of right heart insufficiency with diffuse but stable anasarca in the visible soft tissues and leaves of the mesentery as well as a small amount of ascites. Intrahepatic IVC is markedly dilated. 2. Previously identified bilateral pleural effusions are significantly improved with only a small amount of fluid on the left. There is some persistent atelectasis in the left base. 3. Heart size remains prominent. 4. Otherwise stable. Mt Alvarez MD Objective Remarks GENERAL: 71-year-old a female, lying in bed, intubated, off all sedation SKIN: Warm and dry. No rash HEAD: Atraumatic. Normocephalic. EYES: Pupils equal and round bilaterally reactive. No conjunctival icterus. No injection or drainage. ENT: No nasal bleeding or discharge. Mucous membranes dry. NECK: Trachea midline. orotracheally intubated CARDIOVASCULAR: Regular rate and rhythm RESPIRATORY: Equal air entry bilateral, On CPAP low TV THORAX - left breast less indurated than before. LifeVest still in place. GASTROINTESTINAL: Abdomen improved distension. NGT output remains high. rectal tube in place MUSCULOSKELETAL: Extremities 1+ lower extremity edema. No obvious deformities. NEUROLOGICAL: Weakly follows commands on RUE. Withdraws all extremities to pain. no spontaneous eye opening, but partial eye opening to stimulation Urinary Catheter: Yes Assessment to: Continue A/P Assessment and Plan Assessment: 71yF with h/o ICM, prior EF reported at 15%, s/p placement of AICD, recovery of LVEF to 60%, AICD infection s/p lead extraction, now with breast abscess, septic shock, volume overload, acute systolic CHF exacerbation, acute hypoxic respiratory failure. still very critically ill and unable to measurably improve her organs. Now with VRE and Florina UTI, anuric renal failure and severe ileus. Prognosis very poor. Family decided to withdraw life support today and go for IP hospice Neuro/Psych: Metabolic Encephalopathy Hyperammonemia Hypoactive delirium Off all sedation. Due to ileus fentanyl was discontinued Premedicate prior to extubation, DC Amantadine, Modafinil CV: Acute CHF exacerbation: mixed type, including systolic, diastolic, and valvulopathy from severe tricuspid regurgitation. History arrhythmia/ chronic atrial fibrillation - LifeVest since 11/2016 Hypertension Coronary disease status post stent 3 Moderate to severe TR Acute intravascular volume overload Cor Pulmonale 2-D echocardiogram revealed EF of 60%. Severe TR. PAP 33 mmHg, bedside critical care echo 02/11: moderately depressed LV function. clinically significant TR. Rpt limited echo 02/21 sev TR, PASP 59, EF 50-55% Previously on bumetanide 2 mg daily with KCl 10 mEq twice a day. continue Bumex drip to 2mg/hr. Diamox 500mg iv q8h. Anuric now Discontinue all other cardiac meds Resp: Acute hypoxic respiratory failure Compressive atelectasis/consolidation LLL New RLL HCAP pneumonia Acute pulmonary edema Severe acute intravascular volume overload COPD - 3 L oxygen dependent PRVC/AC. Failing CPAP due to low TV Albuterol/ipratropium aerosols every 4 hours albuterol aerosols every 2 hours. Extubate after premedication GI: Severe Ileus Abdominal Distension Hyperammonemia Acute protein calorie malnutrition - moderate Acute intravascular volume overload Obesity Constipation NGT to LIWS. Rectal tube, GI following. Recd Relistor 02/20. Pantoprazole for GI prophylaxis reglan 5mg iv q8h : Acute Kidney failure worsening Anuric, family decided on no HD and withdrawal today Endo: Diabetes mellitus Hypoglycemia d10w @ 42cc/hr. change to D5NS due to hyponatremia Heme: Normocytic anemia Chronic warfarin use Currently holding warfarin 4 mg daily. CBC and INR daily Does not meet transfusion threshold at this time Currently on iron sulfate 325 mg by mouth twice a day-holding due to ileus ID: Fever/RLL infiltrate/HCAP UTI with Florina and VRE Escherichia coli UTI History of MSSA abscess to left breast Pertinent cultures 02/20 urine Florina and VRE 02/08 - urine - Enterobacter 02/04 - blood cultures 2- no growth 02/03 - urine - Escherichia coli Followed by Dr. Tamayo/ID, reconsult 04/23 Started cefepime and single dose vanc 02/20 Zyvox added for VRE 02/22 Stop ALL ABX MSK: Postop day #16 I&D left breast hematoma by Dr. Garcia PT evaluate and treat Prophylaxis - GI - pantoprazole - DVT - SCD/SQH 5000 q12h. Overall impression: Withdrawal of life support and Hospice today Level 1 Ashley Jenkins MD Feb 25, 2017 10:50
[2017-02-25] MEDS: LORazepam 2 MG/ML VIAL IV PUSH SCH ×3 (12:00→20:00)
[2017-02-26 04:00] VITALS: BP 113/42; PULSE 83; RESP 22; TEMP 97.5; O2SAT 99
[2017-02-26] MEDS: LORazepam 2 MG/ML VIAL IV PUSH SCH ×6 (04:00→19:54)
[2017-02-26 07:15] VITALS: BP 100/51; PULSE 91; RESP 26; TEMP 100.4; O2SAT 95
[2017-02-26] MEDS: SENNOSIDES 8.6 MG TAB PO SCH (09:00)
[2017-02-26] MEDS: BISACODYL 10 MG SUPP RECTAL SCH (09:00)
[2017-02-26] MEDS: HYDROmorphone HCL PF 1 MG/ML VIAL IV PUSH SCH ×5 (11:00→23:44)
--- NOTE | 2017-02-26 11:43 | HHI.HCPN ---
Reason for visit a. To assist with evaluation and management of symptoms including:dyspnea, debility b. To assist medical decision maker(s) with: better understanding of current medical conditions; weighing benefits/burdens of medical treatment options; making medical treatment decisions. Subjective/Interval History Patient seen and examined today for follow up, now inpatient Hospice, family at bedside, daughter Desi. Patient was withdrawn from artificial life support yesterday. Patient resting in bed, appears to be breathing comfortably on room air, no signs and symptoms of nonverbal pain. Patient's daughter reported that she has not seen any signs or symptoms of pain while at the bedside and states she believes her mother is has been comfortable. Vital signs stable, patient with low grade fever, tmax 100.4 in the past 24 hours. Plan to transfer patient to medical floor today, added scheduled hydromorphone for pain. Family/friend interactions Discussed patient's clinical status with daughter Desi, updated on current clinical status, discussed end of life care, signs and symptoms associated with end of life, likely trajectory of signs and symptoms over the coming days. Advance Directives Living Will: Never completed Health Care Surrogate: Never completed Durable Power of Director Clinical Pharmacology: Never completed Objective Vital Signs Date Time Temp Pulse Resp B/P (MAP) Pulse Ox O2 Delivery O2 Flow Rate FiO2 02/26/17 07:15 100.4 91 26 100/51 (67) 95 02/26/17 07:00 98 Room Air 02/26/17 04:00 97.5 83 22 113/42 (65) 99 02/25/17 20:00 98 Room Air 02/25/17 20:00 97.8 73 20 110/57 (74) 98 02/25/17 11:45 Room Air 21 02/25/17 11:40 16 Physical Exam CONSTITUTIONAL/GENERAL: This is a critically ill elderly appearing female patient, intubated, and mechanically ventilated. TUBES/LINES/DRAINS: PICC line RUE, PIV x1, ellis catheter SKIN: No jaundice, rashes, or lesions. Skin temperature appropriate. Not diaphoretic. CARDIOVASCULAR: Regular rate and rhythm without murmurs, gallops, or rubs. Peripheral pulses symmetric. RESPIRATORY/CHEST: Course crackles throughout. Breath sounds equal bilaterally. GASTROINTESTINAL: Abdomen firm, distended. Bowel sounds hypoactive. GENITOURINARY: Ellis catheter. Anuric. MUSCULOSKELETAL: Extremities without clubbing, cyanosis. NEUROLOGICAL: Lethargic. Unable to follow commands. PSYCHIATRIC: Unable to assess secondary to clinical condition. . Diagnostic Tests Laboratory Laboratory Tests Test 02/24/17 04:40 Blood Urea Nitrogen 36 MG/DL (7-18) Creatinine 3.43 MG/DL (0.50-1.00) Random Glucose 95 MG/DL (74-106) Total Protein 8.1 GM/DL (6.4-8.2) Albumin 5.0 GM/DL (3.4-5.0) Calcium Level 9.1 MG/DL (8.5-10.1) Alkaline Phosphatase 49 U/L (45-117) Aspartate Amino Transf (AST/SGOT) 10 U/L (15-37) Alanine Aminotransferase (ALT/SGPT) 8 U/L (10-53) Total Bilirubin 1.3 MG/DL (0.2-1.0) Sodium Level 133 MEQ/L (136-145) Potassium Level 3.5 MEQ/L (3.5-5.1) Chloride Level 99 MEQ/L (98-107) Carbon Dioxide Level 23.3 MEQ/L (21.0-32.0) Anion Gap 11 MEQ/L (5-15) Estimat Glomerular Filtration Rate 16 ML/MIN (>89) Result Diagram: 02/23/17 0520 02/24/17 0440 Procedures 02/10/17: I&D left breast 02/10/17:Intubated Assessment and Plan Disease Oriented Problem List: (1) CHF (congestive heart failure) (2) Respiratory failure with hypercapnia (3) Anasarca (4) AICD generator infection Symptom Scale: (1) Debility (2) Dyspnea Pertinent Non-Medical Issues Psychosocial: Patient is originally from [place], she is , she had five children, only two daughters still living. Spiritual: Hinduism. Legal: None known. Ethical issues impacting care: None known. Important Contacts Damaris Dailey () [phone] Desi Burrell (daughter) [phone] . Prognosis Patient has a long standing history of cardiomyopathy, CHF, COPD, now with respiratory failure, ARF, liver failure, and adynamic ileus. Patient is critically ill, intubated on mechanical ventilation in multiorgan failure. Due to patient's advanced age, multiple comorbidities, and debilitated status she is at an ongoing risk for complications/setbacks. Poor prognosis. Code Status: No Code Plan Plan * Legal decision maker: Patient is currently not capacitated to make informed medical decisions independently. It is unclear if she will regain capacity. Patient does not have any previous written advanced directives, per [place] statutes in the absence of written advanced directives health care decision making would fall to her next of kin which is her . Patient's Damaris Dailey has opted out of medical decision making, per [place] statutes decision making would fall to the patient's two adult daughters, Afsaneh and Desi who have both confirmed they will serve as their mother's health care proxies. * Goals: Inpatient Hospice. Comfort focused. * CODE STATUS: DNR. * Palliative care will continue to follow during hospital course as condition evolves, to assist patient/decision-maker with understanding of medical conditions, weighing benefits/burdens of treatment options, for clarification of goals of treatment. Additionally will assist with any symptoms of palliative concern Attestation To help prompt me to consider important information that might be impacting today's encounter and assessment, information from prior notes written by myself or my colleagues may have been "brought forward" into today's note. My signature on this note, however, is an attestation that I personally performed the exam, history, and/or decision-making noted today, and, unless otherwise indicated, the interactions with patient, family, and staff as well as the review of records all occurred today. I also attest that the listed assessment and stated plan reflect my best clinical judgment today based on the combination of historical information, prior notes, and today's exam/ interactions. When time spent is documented, it refers only to time spent today by the signer, or if indicated, combined time spent today by collaborating physician/nurse practitioner. Sunshine Cagle Feb 26, 2017 11:43
--- NOTE | 2017-02-26 13:12 | HHI.CCPN ---
Subjective Remarks/Hospital Course Hospital Course: This is a 71-year-old Afro-[place] female. Date of admission 02/04/2017. Past medical history includes diastolic congestive heart failure, COPD, chronic atrial fibrillation, diabetes, hypertension and history of MSSA infection on cefazolin. Patient presents to [facility] initially on 02/04 with left breast swelling. In November/2016, patient was diagnosed with endocarditis and AICD infection. At that time, Pacemaker removed . Since that time she's had increasing swelling in her left breast and currently has an abscess of the location 11.8 cm in size. She also complained of Shortness of breath. This is associated with a self-reported 50 pound weight gain with bilateral lower extremity edema and significant stomach swelling. She also reports shortness of breath. She was treated with cefazolin at home include 01/29/2017. After cessation of treatment, she noted The patient reports a significant increase in her left breast swelling over the past 2-3 days. She states the area is tender to palpation and painful. She does not have a leukocytosis. Breast ultrasound showed a complex cystic lesion measuring up to 11.8 cm in the left breast that could represent a fluid collection or old hematoma. Today in 02/10, patient ID of her left breast by Dr. Joy. 300 crystalloid. EBL 50. Urine output 60. Patient received 40 mg torsemide IV post procedure. Her oxygenation requirements increasing currently on BiPAP. She is currently unresponsive when seen in [facility]. She'll be intubated at the present time Subjective: 02/11: intubated overnight. now on vasopressors with fever. likely mixed cardiogenic/septic shock from a combination of volume overload and breast abscess. Also has significant bilateral pleural effusion, left > right by CXR and bedside ultrasound. significantly up in weight. respiratory failure likely from volume overload, although worsening acute kidney injury and shock complicates picture. 02/12: despite aggressive diuresis increasing to bumex drip, still net + and poor diuresis. may require dialysis if no improvement. remains borderline hypoglycemic. renal function continues to worsen. no BM x 2 days. peak pressures on vent elevated. CT chest yesterday without significant effusions but completely collapsed LLL, likely a large component of atelectasis from severe cardiomegaly, but cannot rule out pna. no meaningful improvements from yesterday. 11/16: much improved diuresis yesterday and now net negative 1.7L/24h. Cr still uptrending, but only slightly. pulmonary compliance also has improved with overnight APRV. discussed care with Dr. Garcia and we both agree that inhaled epoprostenol may be of benefit in assisting with RV function to mitigate severe TR and assist with diuresis and hemodynamics. ammonia up slightly, although now having regular bowel movements. 02/14: good diuresis. Cr plateaued. LFTs and T bili slightly worse. ammonia stable without significant improvements. also had 1 episode of emesis today: tube feeds on hold and NGT to LIWS. 02/15: Heart is shaped like a bowling ball. Gas exchange much improved, continued diuresis. Residual NG aspirate > 500 - will reconnect to LIS, start reglan. Decrease T-high to 4.5, add pressure support 5. Lighten fentanyl. Diarrhea remains problematic. 02/16: blood pressure improved. bnp still uptrending. good diuresis. art line removed for non-functioning. 02/17: still diuresing with > 2L/24h negative balance. Cr still downtrending. bp still stable. tolerated initiation of sildenafil. persists with high gastric residuals. KUB with adynamic ileus. starting to weakly follow commands this morning, but still very somnolent. 02/18: continues to diurese on bumex drip with albumin and diamox. Cr continues to downtrend. bp stable. tolerating sildenafil. ileus persists. no tolerance of gastric tube feeds at all. no following commands this morning. If we look overall clinically a week ago until today, no meaningful improvements: continues to get low tidal volumes, atelectasis, and fails any attempt at SBT quickly and continues to require APRV to maintain adequate lung expansion. cardiac function no better despite 12L diuresis. kidneys are some improved but not significant, and mental status is very poor and metabolic encephalopathy is severe. With this many organs dysfunctional, this is a very poor prognosis. I had a long talk with the family where I expressed my concerns. The and medical decision maker clearly states in front of the whole family and palliative care that he would not want CPR or shocking or anything like that, as this would only prolong suffering, but he is having trouble with the decision to withdraw care, and would like to think about it and give a final decision about palliation vs. trach/peg and aggressive care tomorrow. 02/19: UO adequate but reduced over past few hours, labs today are pending. Changed mode to PC/AC. Attempted CPAP, failed due to low tidal volumes. Following commands, but very weak. 02/20: Worsening clinically with worsening abdominal distention/ileus creatinine 3.1 today remains oliguric. New fever Tmax 101, KUB shows right lower lung infiltrate which is new. Pancultured started on cefepime. Nothing by mouth to place NG tube to intermittent wall suction. GI consult placed. GI has ordered Relistor 02/21: Patient still requiring high inspiratory pressure support on PCV. Unable to tolerate CPAP. Abdominal distention slightly improved but still tense , KUB shows slight improvement in ileus. Has NGT to IWS and rectal tube. Creatinine is 3.4 today but 750 mL urine output in 24 hours. No emergency indication for hemodialysis at this time. Urine culture growing Streptococcus on Diflucan, ID reconsultation for new sepsis 02/22: No change clinically. Family wants to withdrawal probably Friday. Urine culture with VRE-Zyvox added. Potassium 2.8 getting replaced 02/23: Clinically remains the same except creatinine is slightly improved to 2.8. Urine output 850 mL in 24 hours. Abdomen feels less tense. Remains sedated with propofol for vent synchrony 02/24: Patient was slightly better yesterday overall but today again to get him for the worse and anuric creatinine up to 3.5 again. Weekly follows commands but not tolerating CPAP 02/25: Patient remains anuric only 50 mL output in last 24 hours. After meeting with palliative care 02/24, family had decided on withdrawal of life support and comfort measures today. Patient will be going to hospice after extubation. Even though she can tolerate CPAP, TV are low. 02/26: Patient has developed multi-system organ failure and will not survive this hospitalization. Objective Vital Signs Date Time Temp Pulse Resp B/P (MAP) Pulse Ox O2 Delivery O2 Flow Rate FiO2 02/26/17 07:15 100.4 91 26 100/51 (67) 95 02/26/17 07:00 Room Air 02/25/17 11:45 21 Result Diagram: 02/23/17 0520 02/24/17 0440 Imaging Last Impressions Head CT 02/11/17 Signed Impressions: Service Date/Time: Saturday, February 11, 2017 04:32 - CONCLUSION: Normal examination. Tyrone Simmons MD Renal Ultrasound 02/10/17 Signed Impressions: Service Date/Time: Friday, February 10, 2017 23:06 - CONCLUSION: Normal examination. No evidence of obstruction or hydronephrosis.. Tyrone Simmons MD Chest X-Ray 02/10/17 Signed Impressions: Service Date/Time: Friday, February 10, 2017 21:41 - CONCLUSION: 1. ET tube 1 cm from the anai. This can be pulled back 2 cm to be in a better position. 2. Cardiomegaly. Multiple electronic devices are seen over the chest. 3. Diffuse pulmonary consolidations likely representing edema. There is further atelectasis or consolidation the bases and probably bilateral effusions. Gregory Perry MD Breast Ultrasound 02/03/17 Signed Impressions: Service Date/Time: Friday, February 03, 2017 18:49 - CONCLUSION: Complex cystic lesion measuring up to 11.8 cm centered at the 12:00 position left breast. Given the clinical history of recent procedure in this area this could represent a noninfected or infected fluid collection. Given the complex internal architecture, percutaneous drainage will likely not be successful. Once the patient's condition permits, consider outpatient diagnostic mammogram and ultrasound followup. Gregory Bob MD ADDENDUM: Another consideration given the prior CT appearance and current imaging findings is an old hematoma. Gregory Bob MD Abdomen/Pelvis CT 02/03/17 Signed Impressions: Service Date/Time: Friday, February 03, 2017 17:35 - CONCLUSION: 1. CT findings characteristic of right heart insufficiency with diffuse but stable anasarca in the visible soft tissues and leaves of the mesentery as well as a small amount of ascites. Intrahepatic IVC is markedly dilated. 2. Previously identified bilateral pleural effusions are significantly improved with only a small amount of fluid on the left. There is some persistent atelectasis in the left base. 3. Heart size remains prominent. 4. Otherwise stable. Mt Alvarez MD Objective Remarks GENERAL: 71-year-old a female, lying in bed, intubated, off all sedation SKIN: Warm and dry. No rash HEAD: Atraumatic. Normocephalic. EYES: Pupils equal and round bilaterally reactive. No conjunctival icterus. No injection or drainage. ENT: No nasal bleeding or discharge. Mucous membranes dry. NECK: Trachea midline. orotracheally intubated CARDIOVASCULAR: Regular rate and rhythm RESPIRATORY: Equal air entry bilateral, On CPAP low TV THORAX - left breast less indurated than before. LifeVest still in place. GASTROINTESTINAL: Abdomen improved distension. NGT output remains high. rectal tube in place MUSCULOSKELETAL: Extremities 1+ lower extremity edema. No obvious deformities. NEUROLOGICAL: Weakly follows commands on RUE. Withdraws all extremities to pain. no spontaneous eye opening, but partial eye opening to stimulation A/P Assessment and Plan Assessment: 71yF with h/o ICM, prior EF reported at 15%, s/p placement of AICD, recovery of LVEF to 60%, AICD infection s/p lead extraction, now with breast abscess, septic shock, volume overload, acute systolic CHF exacerbation, acute hypoxic respiratory failure. still very critically ill and unable to measurably improve her organs. Now with VRE and Florina UTI, anuric renal failure and severe ileus. Prognosis very poor. Family decided to withdraw life support today and go for IP hospice Neuro/Psych: Metabolic Encephalopathy Hyperammonemia Hypoactive delirium Off all sedation. Due to ileus fentanyl was discontinued Premedicate prior to extubation, DC Amantadine, Modafinil CV: Acute CHF exacerbation: mixed type, including systolic, diastolic, and valvulopathy from severe tricuspid regurgitation. History arrhythmia/ chronic atrial fibrillation - LifeVest since 11/2016 Hypertension Coronary disease status post stent 3 Moderate to severe TR Acute intravascular volume overload Cor Pulmonale 2-D echocardiogram revealed EF of 60%. Severe TR. PAP 33 mmHg, bedside critical care echo 02/11: moderately depressed LV function. clinically significant TR. Rpt limited echo 02/21 sev TR, PASP 59, EF 50-55% Previously on bumetanide 2 mg daily with KCl 10 mEq twice a day. continue Bumex drip to 2mg/hr. Diamox 500mg iv q8h. Anuric now Discontinue all other cardiac meds Resp: Acute hypoxic respiratory failure Compressive atelectasis/consolidation LLL New RLL HCAP pneumonia Acute pulmonary edema Severe acute intravascular volume overload COPD - 3 L oxygen dependent PRVC/AC. Failing CPAP due to low TV Albuterol/ipratropium aerosols every 4 hours albuterol aerosols every 2 hours. Extubate after premedication GI: Severe Ileus Abdominal Distension Hyperammonemia Acute protein calorie malnutrition - moderate Acute intravascular volume overload Obesity Constipation NGT to LIWS. Rectal tube, GI following. Recd Relistor 02/20. Pantoprazole for GI prophylaxis reglan 5mg iv q8h : Acute Kidney failure worsening Anuric, family decided on no HD and withdrawal today Endo: Diabetes mellitus Hypoglycemia d10w @ 42cc/hr. change to D5NS due to hyponatremia Heme: Normocytic anemia Chronic warfarin use Currently holding warfarin 4 mg daily. CBC and INR daily Does not meet transfusion threshold at this time Currently on iron sulfate 325 mg by mouth twice a day-holding due to ileus ID: Fever/RLL infiltrate/HCAP UTI with Florina and VRE Escherichia coli UTI History of MSSA abscess to left breast Pertinent cultures 02/20 urine Florina and VRE 02/08 - urine - Enterobacter 02/04 - blood cultures 2- no growth 02/03 - urine - Escherichia coli Followed by Dr. Tamayo/ID, reconsult 04/23 Started cefepime and single dose vanc 02/20 Zyvox added for VRE 02/22 Stop ALL ABX MSK: Postop day #17 I&D left breast hematoma by Dr. Garcia PT evaluate and treat Prophylaxis - GI - pantoprazole - DVT - SCD/SQH 5000 q12h. Overall impression: Withdrawal of life support and Hospice Care. Virgilio Banerjee MD Feb 26, 2017 13:12
[2017-02-26 19:15] VITALS: BP 102/53; PULSE 73; RESP 22; TEMP 99.8; O2SAT 98
[2017-02-27] MEDS: LORazepam 2 MG/ML VIAL IV PUSH SCH ×6 (01:06→20:18)
[2017-02-27 01:11] VITALS: BP 108/64; PULSE 71; RESP 15; TEMP 97.1; O2SAT 85
[2017-02-27] MEDS: HYDROmorphone HCL PF 1 MG/ML VIAL IV PUSH SCH ×6 (03:53→23:57)
[2017-02-27] MEDS: BISACODYL 10 MG SUPP RECTAL SCH (07:24)
[2017-02-27 08:00] VITALS: BP 125/60; PULSE 78; RESP 16; TEMP 97.3; O2SAT 86
[2017-02-27] MEDS ORDERED: BISACODYL 10 MG SUPP RECTAL PRN (15:45)
--- NOTE | 2017-02-27 15:56 | HHI.HCPN ---
Reason for visit a. To assist with evaluation and management of symptoms including: dyspnea, pain b. To assist medical decision maker(s) with: better understanding of current medical conditions; weighing benefits/burdens of medical treatment options; making medical treatment decisions. Subjective/Interval History Patient seen and examined today for follow up for inpatient Hospice, no family at bedside during exam. Patient resting in bed, appears comfortable, no signs and symptoms of nonverbal pain. Patient has not required any PRN lorazepam or Dilaudid, she has been receiving her scheduled lorazepam and Dilaudid. Discussed patient's comfort with her daughter Desi, inquired if Desi agrees that her mother appears comfortable, she again stated she has not seen any signs or symptoms of pain while at the bedside and states she believes her mother is has been comfortable. Patient's oxygen saturation trending down today , 86% on room air, remaining vital signs are stable, all four extremities cool and dusky. . Family/friend interactions Family meeting with patient's daughter Desi, her , and the patient's two sisters, provided update regarding patient's status, discussed comfort and end of life care as well as signs and symptoms associated with end of life. Patient's daughter Desi is seems to be struggling with the decision to transition to comfort, she questioned whether or not her mother is suffering in light that she is not receiving any nutrition or hydration, explained in detail to Desi that providing hydration would prolong the dying process and in the setting of the patient's renal failure and heart failure providing hydration could potentially lead to more discomfort with fluid volume overload. Desi also expressed difficulty with the feeling that her mother is "lingering" and questions the decision to transition to comfort focused goals/Hospice as a whole , again reassured Desi and addressed her concerns as well as acknowledged the difficulty of this type of scenario. All questions answered to the best of my ability, following our conversation Desi expressed an understanding of the topics discussed. She will need ongoing education, support, reassurance throughout this process. . Advance Directives Living Will: Never completed Health Care Surrogate: Never completed Durable Power of Motor Setter: Never completed Objective Vital Signs Date Time Temp Pulse Resp B/P (MAP) Pulse Ox O2 Delivery O2 Flow Rate FiO2 02/27/17 08:00 97.3 78 16 125/60 (81) 86 02/27/17 01:11 97.1 71 15 108/64 (79) 85 02/26/17 19:15 99.8 73 22 102/53 (69) 98 02/26/17 19:00 99 Room Air Intake & Output 02/27/17 02/27/17 07:00 19:00 Output Total 350 ml Balance -350 ml Output Urine Total 350 ml # Bowel Movements 1 . Physical Exam CONSTITUTIONAL/GENERAL: This is a critically ill elderly appearing female patient, intubated, and mechanically ventilated. TUBES/LINES/DRAINS: PICC line RUE, PIV x1, ellis catheter SKIN: No jaundice, rashes, or lesions. Skin temperature appropriate. Not diaphoretic. CARDIOVASCULAR: Regular rate and rhythm without murmurs, gallops, or rubs. Peripheral pulses symmetric. RESPIRATORY/CHEST: Course crackles throughout. Breath sounds equal bilaterally. GASTROINTESTINAL: Abdomen soft. Bowel sounds hypoactive. GENITOURINARY: Ellis catheter. Anuric. MUSCULOSKELETAL: Extremities cool, dusky. . NEUROLOGICAL: Lethargic. Nonverbal. Unable to follow commands. PSYCHIATRIC: Unable to assess secondary to clinical condition. . Diagnostic Tests Result Diagram: 02/23/17 0520 02/24/17 0440 Procedures 02/10/17: I&D left breast 02/10/17:Intubated Assessment and Plan Disease Oriented Problem List: (1) CHF (congestive heart failure) (2) Respiratory failure with hypercapnia (3) Anasarca (4) AICD generator infection Symptom Scale: (1) Debility (2) Dyspnea Pertinent Non-Medical Issues Psychosocial: Patient is originally from [place], she is , she had five children, only two daughters still living. Spiritual: Religious. Legal: None known. Ethical issues impacting care: None known. Important Contacts Damaris Dailey () [phone] Desi Burrell (daughter) [phone] . Prognosis Patient has a long standing history of cardiomyopathy, CHF, COPD, now with respiratory failure, ARF, liver failure, and adynamic ileus. Patient is critically ill, intubated on mechanical ventilation in multiorgan failure. Due to patient's advanced age, multiple comorbidities, and debilitated status she is at an ongoing risk for complications/setbacks. Poor prognosis. Code Status: No Code Plan Plan * Legal decision maker: Patient is currently not capacitated to make informed medical decisions independently. It is unclear if she will regain capacity. Patient does not have any previous written advanced directives, per [place] statutes in the absence of written advanced directives health care decision making would fall to her next of kin which is her . Patient's Damaris Dailey has opted out of medical decision making, per [place] statutes decision making would fall to the patient's two adult daughters, Afsaneh and Desi who have both confirmed they will serve as their mother's health care proxies. * Goals: Inpatient Hospice. Comfort focused. Family would like the patient to remain in the hospital, declined moving the patient to a care center. * CODE STATUS: DNR. * Palliative care will continue to follow during hospital course as condition evolves, to assist patient/decision-maker with understanding of medical conditions, weighing benefits/burdens of treatment options, for clarification of goals of treatment. Additionally will assist with any symptoms of palliative concern Attestation To help prompt me to consider important information that might be impacting today's encounter and assessment, information from prior notes written by myself or my colleagues may have been "brought forward" into today's note. My signature on this note, however, is an attestation that I personally performed the exam, history, and/or decision-making noted today, and, unless otherwise indicated, the interactions with patient, family, and staff as well as the review of records all occurred today. I also attest that the listed assessment and stated plan reflect my best clinical judgment today based on the combination of historical information, prior notes, and today's exam/ interactions. When time spent is documented, it refers only to time spent today by the signer, or if indicated, combined time spent today by collaborating physician/nurse practitioner. Sunshine Cagle Feb 27, 2017 15:56
[2017-02-27 20:00] VITALS: BP 119/55; PULSE 76; RESP 18; TEMP 96.7; O2SAT 94
[2017-02-28] VITALS: BP 172/78; PULSE 71; RESP 18; TEMP 97; O2SAT 95
[2017-02-28] MEDS: LORazepam 2 MG/ML VIAL IV PUSH SCH ×6 (00:01→23:09)
[2017-02-28] MEDS: HYDROmorphone HCL PF 1 MG/ML VIAL IV PUSH SCH ×6 (04:00→23:12)
[2017-02-28 07:56] LABS: AUTOMATED NEUTROPHIL # 5.2 TH/MM3 (1.8-7.7); BASOPHIL # 0.1 TH/MM3 (0-0.2); BASOPHIL % 1.7 % (0.0-2.0); EOSINOPHIL # 0.1 TH/MM3 (0-0.4); EOSINOPHIL % 1.6 % (0.0-4.0); HEMATOCRIT 29.5 % (35.0-46.0); HEMO FLAGS DIFF FINAL; LYMPH % 10.2 % (9.0-44.0); LYMPHOCYTE # 0.7 TH/MM3 (1.0-4.8); MEAN CELL VOLUME 88.1 FL (80.0-100.0); MEAN CORPUSCULAR HEMOGLOBIN 28.3 PG (27.0-34.0); MEAN CORPUSCULAR HGB CONC 32.1 % (32.0-36.0); MONO % 14.2 % (0.0-8.0); NEUT % 72.3 % (16.0-70.0); PLATELET COUNT 271 TH/MM3 (150-450); RED BLOOD COUNT 3.35 MIL/MM3 (4.00-5.30); RED CELL DISTRIBUTION WIDTH 19.6 % (11.6-17.2); WHITE BLOOD COUNT 7.2 TH/MM3 (4.0-11.0)
[2017-02-28 08:00] VITALS: BP 126/75; PULSE 83; RESP 16; TEMP 96.7; O2SAT 87
--- NOTE | 2017-02-28 15:09 | HHI.HCPN ---
Reason for visit a. To assist with evaluation and management of symptoms including: dyspnea, pain b. To assist medical decision maker(s) with: better understanding of current medical conditions; weighing benefits/burdens of medical treatment options; making medical treatment decisions. Subjective/Interval History Patient seen and examined today for follow up for inpatient Hospice. Patient's daughter Desi is at the bedside, as well as the patient's brother. They note that the patient continues to appear comfortable, no signs of pain or dyspnea. The patient is making minimal if any urine, and she has not required any PRN medications the past couple days. I again discussed some of the advantages of a move to hospice Care Center, and the daughter will discuss it with her sister.. . Family/friend interactions Patient's daughter and patient's brother; questions answered, discussion regarding signs and symptoms of end-of-life, timeframe to , etc. . Advance Directives Living Will: Never completed Health Care Surrogate: Never completed Durable Power of Rn Picu: Never completed Objective Vital Signs Date Time Temp Pulse Resp B/P (MAP) Pulse Ox O2 Delivery O2 Flow Rate FiO2 02/28/17 11:30 18 02/28/17 08:00 96.7 83 16 126/75 (92) 87 02/28/17 00:00 97.0 71 18 172/78 (109) 95 02/27/17 20:00 96.7 76 18 119/55 (76) 94 Intake & Output 02/28/17 02/28/17 06:59 18:59 # Voids 100 Physical Exam CONSTITUTIONAL/GENERAL: This is an elderly appearing female patient, no obvious signs of distress. SKIN: No jaundice, rashes, or lesions. Skin temperature appropriate. Not diaphoretic. CARDIOVASCULAR: Regular rate and rhythm without murmurs, gallops, or rubs. Peripheral pulses symmetric. RESPIRATORY/CHEST: Course crackles throughout. Breath sounds equal bilaterally. GASTROINTESTINAL: Abdomen soft. Bowel sounds hypoactive. GENITOURINARY: Wolff catheter. Anuric. MUSCULOSKELETAL: Extremities cool, dusky intermittently. . NEUROLOGICAL: Essentially nonverbal and unresponsive. PSYCHIATRIC: Unable to assess secondary to clinical condition. . Diagnostic Tests Laboratory Laboratory Tests Test 02/28/17 07:40 White Blood Count 7.2 TH/MM3 (4.0-11.0) Red Blood Count 3.35 MIL/MM3 (4.00-5.30) Hemoglobin 9.5 GM/DL (11.6-15.3) Hematocrit 29.5 % (35.0-46.0) Mean Corpuscular Volume 88.1 FL (80.0-100.0) Mean Corpuscular Hemoglobin 28.3 PG (27.0-34.0) Mean Corpuscular Hemoglobin Concent 32.1 % (32.0-36.0) Red Cell Distribution Width 19.6 % (11.6-17.2) Platelet Count 271 TH/MM3 (150-450) Mean Platelet Volume 6.8 FL (7.0-11.0) Neutrophils (%) (Auto) 72.3 % (16.0-70.0) Lymphocytes (%) (Auto) 10.2 % (9.0-44.0) Monocytes (%) (Auto) 14.2 % (0.0-8.0) Eosinophils (%) (Auto) 1.6 % (0.0-4.0) Basophils (%) (Auto) 1.7 % (0.0-2.0) Neutrophils # (Auto) 5.2 TH/MM3 (1.8-7.7) Lymphocytes # (Auto) 0.7 TH/MM3 (1.0-4.8) Monocytes # (Auto) 1.0 TH/MM3 (0-0.9) Eosinophils # (Auto) 0.1 TH/MM3 (0-0.4) Basophils # (Auto) 0.1 TH/MM3 (0-0.2) CBC Comment DIFF FINAL Differential Comment Result Diagram: 02/28/17 0740 02/24/17 0440 Procedures 02/10/17: I&D left breast 02/10/17:Intubated Assessment and Plan Disease Oriented Problem List: (1) CHF (congestive heart failure) (2) Respiratory failure with hypercapnia (3) Anasarca (4) AICD generator infection Symptom Scale: (1) Debility (2) Dyspnea Pertinent Non-Medical Issues Psychosocial: Patient is originally from [place], she is , she had five children, only two daughters still living. Spiritual: Anabaptist. Legal: None known. Ethical issues impacting care: None known. Important Contacts Damaris Dailey () [phone] Desi Burrell (daughter) [phone] . Prognosis Patient has a long standing history of cardiomyopathy, CHF, COPD, now with respiratory failure, ARF, liver failure, and adynamic ileus. Patient is critically ill, intubated on mechanical ventilation in multiorgan failure. Due to patient's advanced age, multiple comorbidities, and debilitated status she is at an ongoing risk for complications/setbacks. Poor prognosis. Code Status: No Code Plan Plan * Legal decision maker: Patient lacks capacity for decision-making, and she will not regain that capacity; the patient's two adult daughters, Afsaneh and Desi, the health care proxies. * Goals: Inpatient Hospice. Comfort focused. Family is considering possibly transitioning to a hospice care center. * CODE STATUS: DNR. * Palliative care will continue to follow during hospital course... Time Spent Total Floor Time (mins): 36 Face to Face Time (mins): 20 >50% Counseling/Coord of Care: Yes Attestation To help prompt me to consider important information that might be impacting today's encounter and assessment, information from prior notes written by myself or my colleagues may have been "brought forward" into today's note. My signature on this note, however, is an attestation that I personally performed the exam, history, and/or decision-making noted today, and, unless otherwise indicated, the interactions with patient, family, and staff as well as the review of records all occurred today. I also attest that the listed assessment and stated plan reflect my best clinical judgment today based on the combination of historical information, prior notes, and today's exam/ interactions. When time spent is documented, it refers only to time spent today by the signer, or if indicated, combined time spent today by collaborating physician/nurse practitioner. Evie Barros MD Feb 28, 2017 15:09
[2017-02-28 20:33] VITALS: BP 183/77; PULSE 94; RESP 18; TEMP 97.2; O2SAT 97
[2017-03-01 00:03] VITALS: BP 174/77; PULSE 101; RESP 18; TEMP 97.5; O2SAT 88
[2017-03-01] MEDS: HYDROmorphone HCL PF 1 MG/ML VIAL IV PUSH SCH ×4 (02:05→15:00)
[2017-03-01] MEDS: LORazepam 2 MG/ML VIAL IV PUSH SCH ×5 (02:06→16:00)
[2017-03-01 04:39] VITALS: BP 148/67; PULSE 99; RESP 16; TEMP 99; O2SAT 86
[2017-03-01 08:00] VITALS: BP 160/70; PULSE 103; RESP 19; TEMP 98.2; O2SAT 87
== END 2017-03-01 16:22 | disposition expired | DRG 291 ==
LOC: NEPE 15:38 → NEDA 21:20 → N06A 22:34 → N03B 02-10 19:33 → N03A 02-10 20:17 → N05B 02-26 21:35
PROVIDERS: ADMIT Family Medicine Hospice and Palliative Medicine; ATTEND Family Medicine Hospice and Palliative Medicine
PROC: 5A1955Z Respiratory Ventilation, Greater than 96 Consecutive Hours (ICD-10-PCS; 2017-02-10)
PROC: 0BH17EZ Insertion of Endotracheal Airway into Trachea, Via Natural or Artificial Opening (ICD-10-PCS; 2017-02-10)
PROC: 5A09357 Assistance with Respiratory Ventilation, Less than 24 Consecutive Hours, Continuous Positive Airway Pressure (ICD-10-PCS; 2017-02-10)
PROC: 0H9U00Z Drainage of Left Breast with Drainage Device, Open Approach (ICD-10-PCS; principal; 2017-02-10 16:53)
DX: I13.0 Hypertensive heart and chronic kidney disease with heart failure and stage 1 through stage 4 chronic kidney disease, or unspecified chronic kidney disease (principal); R65.21 Severe sepsis with septic shock; J18.9 Pneumonia, unspecified organism; N17.9 Acute kidney failure, unspecified; G93.41 Metabolic encephalopathy; A41.9 Sepsis, unspecified organism; J96.02 Acute respiratory failure with hypercapnia; J96.01 Acute respiratory failure with hypoxia; N18.3 Chronic kidney disease, stage 3 (moderate); J98.11 Atelectasis; B37.49 Other urogenital candidiasis; I50.43 Acute on chronic combined systolic (congestive) and diastolic (congestive) heart failure; Z99.11 Dependence on respirator [ventilator] status; R18.8 Other ascites; J44.1 Chronic obstructive pulmonary disease with (acute) exacerbation; E87.2 Acidosis; N39.0 Urinary tract infection, site not specified; E44.0 Moderate protein-calorie malnutrition; K56.0 Paralytic ileus; E72.20 Disorder of urea cycle metabolism, unspecified; E87.1 Hypo-osmolality and hyponatremia; J44.0 Chronic obstructive pulmonary disease with (acute) lower respiratory infection; I25.5 Ischemic cardiomyopathy; N61.1 Abscess of the breast and nipple; N64.89 Other specified disorders of breast; Z99.81 Dependence on supplemental oxygen; E11.22 Type 2 diabetes mellitus with diabetic chronic kidney disease; I48.2 Chronic atrial fibrillation; I25.10 Atherosclerotic heart disease of native coronary artery without angina pectoris; H26.9 Unspecified cataract; E66.9 Obesity, unspecified; D50.9 Iron deficiency anemia, unspecified; I07.1 Rheumatic tricuspid insufficiency; B96.20 Unspecified Escherichia coli [E. coli] as the cause of diseases classified elsewhere; I27.81 Cor pulmonale (chronic); I27.29 Other secondary pulmonary hypertension; R41.0 Disorientation, unspecified; Z51.5 Encounter for palliative care; Z66 Do not resuscitate; B96.89 Other specified bacterial agents as the cause of diseases classified elsewhere; M25.461 Effusion, right knee; R19.7 Diarrhea, unspecified; E11.649 Type 2 diabetes mellitus with hypoglycemia without coma; K72.90 Hepatic failure, unspecified without coma; Y95 Nosocomial condition; K76.1 Chronic passive congestion of liver; E87.6 Hypokalemia; Z68.23 Body mass index [BMI] 23.0-23.9, adult; Z79.4 Long term (current) use of insulin; Z79.01 Long term (current) use of anticoagulants; Z95.5 Presence of coronary angioplasty implant and graft; Z87.891 Personal history of nicotine dependence; Z86.19 Personal history of other infectious and parasitic diseases; Z79.899 Other long term (current) drug therapy
CPT/HCPCS: 31500; 36600; 36620; 70450; 71010; 71250; 74000; 74176; 76642; 76775; 76937; 80048; 80053; 80076; 81001; 82140; 82150; 82550; 82552; 82570; 82805; 82948; 83605; 83690; 83735; 83880; 83935; 84100; 84132; 84156; 84300; 84443; 84484; 85007; 85014; 85025; 85027; 85610; 85730; 86403; 86850; 86900; 86901; 86920; 87015; 87040; 87070; 87077; 87086; 87102; 87116; 87186; 87205; 87206; 87493; 87641; 93005; 93308; 94002; 94003; 94640; 94664; 94799; 96374; C9113; J0690; J0692; J1120; J1170; J1205; J1325; J1644; J1650; J1815; J1940; J1980; J2020; J2060; J2212; J2250; J2370; J2405; J2765; J3010; J3475; J3480; J7030; J7042; J7050; J7120; J7611; P9047